=== PATIENT | male | born 1985 | race Caucasian/White ===

== ENCOUNTER 2016-06-21 07:08 | Emergency (ER) | payer SELFPAY ==
[2016-06-21] MEDS ORDERED: ONDANSETRON 4 MG TAB.RAPDIS PO ONE (07:16)
[2016-06-21] MEDS ORDERED: ONDANSETRON 4 MG TAB.RAPDIS ONE (07:18)
--- NOTE | 2016-06-21 07:21 | ER Document Report ---
ED GI/ - General Chief Complaint: Alcohol Withdrawl Stated Complaint: VOMITING AND DIARHHEA Notes: The patient is a 30-year-old male, chronic alcoholic, cocaine/benzo/opioid abuse , presents with nausea, vomiting, diarrhea and epigastric abdominal pain for the past 2 hours. His last alcoholic drink was about 24 hours ago. He feels like he is withdrawing from ETOH cause he feels shaky. He has never had alcohol withdrawal seizure. He denies fevers, hallucinations, seizures, hematemesis or hematochezia. TRAVEL OUTSIDE OF THE [place] IN LAST 30 DAYS: No - Related Data Allergies/Adverse Reactions: carisoprodol [From Soma] Allergy (Verified 06/21/16 08:16) Sulfa (Sulfonamide Antibiotics) Allergy (Verified 06/21/16 08:16) Past Medical History - General Information source: Patient - Social History Smoking Status: Current Every Day Smoker Chew tobacco use (# tins/day): No Frequency of alcohol use: Heavy Drug Abuse: None Family History: Reviewed & Not Pertinent Patient has suicidal ideation: No Patient has homicidal ideation: No - Past Medical History Cardiac Medical History: Reports: Hx Hypercholesterolemia, Hx Hypertension Pulmonary Medical History: Reports: Hx Bronchitis GI Medical History: Reports: Hx Gastritis, Hx Hepatitis - Hepatitis-C, Hx Ulcer Musculoskeltal Medical History: Reports Hx Gout Psychiatric Medical History: Reports: Hx Anxiety, Hx Bipolar Disorder, Hx Depression Traumatic Medical History: Reports: Hx Fractures - Right hand Infectious Medical History: Reports: Hx Hepatitis - Hepatitis-C Past Surgical History: Reports: Hx Orthopedic Surgery - R hand - Immunizations Immunizations up to date: Yes Hx Diphtheria, Pertussis, Tetanus Vaccination: Yes Review of Systems - Review of Systems Notes: REVIEW OF SYSTEMS: CONSTITUTIONAL: -fevers, -chills EENT: -eye pain, -difficulty swallowing, -nasal congestion CARDIOVASCULAR: -chest pain, -syncope. RESPIRATORY: -cough, -SOB GASTROINTESTINAL: +abdominal pain, +nausea, +vomiting, +diarrhea GENITOURINARY: -dysuria, -hematuria MUSCULOSKELETAL: -back pain, -neck pain SKIN: -rash or skin lesions. HEMATOLOGIC: -easy bruising or bleeding. LYMPHATIC: -swollen, enlarged glands. NEUROLOGICAL: -altered mental status or loss of consciousness, -headache, +feel shaky PSYCHIATRIC: -anxiety, -depression. ALL OTHER SYSTEMS REVIEWED AND NEGATIVE. Physical Exam - Vital signs Vitals: Temp Pulse Resp BP Pulse Ox 98.4 F 89 22 H 149/96 H 98 06/21/16 07:10 06/21/16 07:10 06/21/16 07:10 06/21/16 07:10 06/21/16 07:10 - Notes Notes: PHYSICAL EXAMINATION: GENERAL: Actively vomiting. HEAD: Atraumatic, normocephalic. EYES: Pupils equal round and reactive to light, extraocular movements intact, sclera anicteric, conjunctiva are normal. ENT: nares patent, oropharynx clear without exudates. Moist mucous membranes. NECK: Normal range of motion, supple without lymphadenopathy LUNGS: Breath sounds clear to auscultation bilaterally and equal. No wheezes rales or rhonchi. HEART: Regular rate and rhythm without murmurs ABDOMEN: Soft, normoactive bowel sounds. No guarding, no rebound. No masses appreciated. Mild epigastric tenderness. EXTREMITIES: Normal range of motion, no pitting or edema. No cyanosis. NEUROLOGICAL: Cranial nerves grossly intact. Normal speech, normal gait. Normal sensory, motor, and reflex exams. No tremors noted. No tongue fasciculations. PSYCH: Normal mood, normal affect. SKIN: Warm, Dry, normal turgor, no rashes or lesions noted. Course - Re-evaluation Re-evalutation: Has had multiple visits for these complaints and abdominal pain. Notified of pain policy. No evidence of pancreatitis on labs. CIWA score 2. After Ativan, he is no longer feeling shaky. He is tolerating p.o. patient's CIWA score is low enough that patient can be safely treated as an outpatient. I had mental health provide resources for patient for outpatient detox. He says he will go to [facility] after discharge were detox. He is no longer feeling shaky and his tachycardia resolved. Steady gait and ambulating without assistance. Given strict return precautions and he understands. - Vital Signs Vital signs: Temp Pulse Resp BP Pulse Ox 98.4 F 89 14 139/89 H 97 06/21/16 07:44 06/21/16 07:10 06/21/16 09:00 06/21/16 09:00 06/21/16 09:00 - Laboratory Result Diagrams: 06/21/16 07:40 01/09/17 07:40 Laboratory results interpreted by me: 06/21/16 06/21/16 07:40 07:40 RDW 18.4 H Sodium 145.6 H Chloride 97 L Anion Gap 22 H BUN 4 L Glucose 131 H Total Bilirubin 1.6 H AST 333 H Alkaline Phosphatase 216 H Total Protein 8.9 H Discharge - Discharge Clinical Impression: Alcohol withdrawal Qualifiers: Complication of substance-induced condition: uncomplicated Qualified Code(s): F10.230 - Alcohol dependence with withdrawal, uncomplicated Condition: Good Disposition: HOME, SELF-CARE Additional Instructions: ACUTE ALCOHOL INTOXICATION and ALCOHOL ABUSE: Your evaluation revealed very high levels of alcohol. You can from drinking a large amount of alcohol rapidly! Further, there's the risk of falls , traffic accidents, and fights. A high portion (about 50 percent) of the serious injuries seen in hospital emergency rooms are caused by alcohol. Alcohol overdosage is usually due to an underlying emotional or psychiatric problem. You may benefit from counselling. If "binge" drinking is an ongoing problem for you, or if you drink ANY AMOUNT of alcohol EVERY day, you most likely have a tendency to alcoholism. You should avoid alcohol totally. We can refer you for treatment. Persons with alcohol problems are often also prone to other addictions -- you should discuss any use of medications or drugs with the doctor. You should be watched at home for the next several hours by someone who has not been drinking. Get extra fluids for the next 24 hours. Call the doctor if there is repeated vomiting, increasing headache, decreasing level of alertness, or any other worsening. Go to [facility] as instructed for further treatment of your alcohol withdrawal. Take your Librium as prescribed. CHRONIC ALCOHOLISM and ALCOHOL ABUSE: Your evaluation reveals evidence of chronic alcoholism, an addiction to alcohol. The tendency to alcoholism may be inherited. Chronic use of alcohol weakens muscles, causes fatty deposits in the liver , damages the stomach, makes you more prone to infections, and can cause defects in unborn children. In the long run, brain atrophy and cirrhosis of the liver result. You are also at greater risk for certain types of cancer, such as cancer of the mouth, throat, stomach, and liver. Counselling services are available to help you. In-hospital treatment programs often help. Support groups such as Alcoholics Anonymous can be very useful in beating this addiction. Your physician can make a referral for you. As alcoholics often are prone to other addictions, you should discuss your use of any other medications with the doctor. ALCOHOL WITHDRAWAL: Your symptoms are caused by alcohol withdrawal. After a period of frequent drinking, the brain and body are changed by the alcohol. When you quit or reduce your drinking, the nervous system becomes unstable. Withdrawal symptoms can start a few hours after your last drink, but sometimes don't begin until a couple of days later. Symptoms can include shakiness, sweating, insomnia, nausea , vomiting, fearfulness, hallucinations, and seizures. In addition to the acute effects of alcohol withdrawal, we often have to deal with the medical effects of alcoholism. These problems often include dehydration, stomach irritation, intestinal bleeding, low blood sugar, liver disease, and pancreas inflammation. Treatment for alcohol withdrawal includes mild sedatives, vitamins, and fluids. You need to be with someone who can help if symptoms become severe. Many patients can withdraw at home. Admission to the hospital or a detox facility may be necessary if withdrawal symptoms are severe and uncontrollable. Abstaining from alcohol is the only effective long-term treatment. If you start drinking again, you will not be able to control yourself after the first drink. Treatment programs are available. In addition, many alcoholics benefit from Alcoholics Anonymous or other support groups available through your counselor or latter-day special loan officer. AL-ANON and ALA-TEEN are support groups for friends and family members of an alcoholic. Go to the emergency room if you develop persistent vomiting, severe abdominal pain, fever, shortness of breath, hallucinations, uncontrollable tremors, or seizures. COCAINE ABUSE: Cocaine causes many dangerous medical problems. Problems can occur even with "usual" amounts. Cocaine affects judgement, creating a sense of invulnerability. Cocaine users often make bad decisions that seem "great" at the time. Most cocaine users eventually will be hurt by bad job performance, damaged personal relations, crime, and unsafe sexual practices. Toxic effects of cocaine can include seizures, hallucinations, delusions, high blood pressure, heart damage, or sudden . There's always the risk of a "bad batch." But heart attacks, brain hemorrhages, or cardiac arrest can occur unpredictably even with "normal" use. Injection of cocaine is risky for abscesses, endocarditis (heart infection) , pneumonia, and AIDS. Withdrawal from cocaine often causes anxiety and drug cravings. Some users become paranoid and psychotic. Many treatment programs are available, but you must make the decision to quit. Medication can be prescribed to control the symptoms of cocaine toxicity (beta blockers or benzodiazepines). Withdrawal symptoms may require tranquilizers. NARCOTIC / OPIOD ABUSE: Narcotics and opiods are pain-relieving drugs that are often abused. They are addicting. Narcotics cause euphoria, but it often takes increasing amounts to "feel good" and avoid withdrawal symptoms. Overdose of narcotics causes small pupils, coma, and decreased breathing. It's a common cause of . Purity of street narcotics is unpredictable. Injection of narcotics is risky for abscesses, endocarditis (heart infection), pneumonia, and AIDS. Withdrawal from narcotics causes goose bumps, watery mouth, sweating, nasal congestion, muscle aches, abdominal cramps, vomiting, and diarrhea. There 's often restlessness and confusion. Treatment programs are available, but you must make the decision to quit. Medication (such as clonidine) can be prescribed to control the symptoms of withdrawal. INSTRUCTIONS FOR HOME CARE FOLLOWING DRUG OVERDOSAGE: The doctor feels it's safe for you to go home. You will need to be observed. If charcoal and a laxative was given to you, expect some loose black stools soon. Take no medications unless approved by a physician, including alcohol. If drowsy, lie on your stomach or side for sleeping to avoid aspiration if vomiting occurs. Take only liquids by mouth until there is no more nausea. FOR THE OBSERVER: Observe the patient for the next 24 hours and call or go to the hospital if any of the following are noted: prolonged or repeated vomiting, difficulty in arousing, convulsions (seizures or fits), fever, persistent cough, breathing that is too slow or too rapid, or confused or bizarre behavior. If a counselling visit has been arranged, make sure the patient attends. Call the physician or poison control if you have questions. FOLLOW-UP CARE: If you have been referred to a physician for follow-up care, call the physician s office for an appointment as you were instructed or within the next two days. If you experience worsening or a significant change in your symptoms, notify the physician immediately or return to the Emergency Department at any time for re-evaluation. Prescriptions: Chlordiazepoxide HCl [Librium 10 mg Capsule] 1 cap PO TID #6 cap Referrals: [facility] [Outside] - Follow up as needed
[2016-06-21] MEDS ORDERED: LORAZEPAM INJ 2 MG/1 ML VIAL IV ONE (07:29)
[2016-06-21] MEDS ORDERED: HYDROMORPHONE HCL INJ/PF 2 MG/ML AMPULE IV ONE (07:33)
[2016-06-21] MEDS ORDERED: NORMAL SALINE 1000 ML 1,000 ML IV PRN (07:39)
[2016-06-21 07:52] LABS: ABSOLUTE BASOPHILS # (AUTO) 0.1 10^3/uL (0.0-0.2); ABSOLUTE EOSINOPHILS # (AUTO) 0.1 10^3/uL (0.0-0.6); ABSOLUTE LYMPHOCYTES (AUTO) 1.8 10^3/uL (0.5-4.7); ABSOLUTE MONOCYTES (AUTO) 0.4 10^3/uL (0.1-1.4); ABSOLUTE NEUT (AUTO) 7.4 10^3/uL (1.7-8.2); BASOPHILS % (AUTO) 0.9 % (0-2); EOSINOPHILS % (AUTO) 0.6 % (0-6); HEMATOCRIT 41.4 % (37.9-51.0); HEMOGLOBIN 14.4 g/dL (13.5-17.0); HGB HCT DIFFERENCE 1.8; LYMPHOCYTES % (AUTO) 18.2 % (13-45); MEAN CORPUSCULAR HEMOGLOBIN 31.3 pg (27.0-33.4); MEAN CORPUSCULAR HGB CONC 34.8 g/dL (32.0-36.0); MEAN CORPUSCULAR VOLUME 90 fl (80-97); MONOCYTES % (AUTO) 4.3 % (3-13); RED CELL DISTRIBUTION WIDTH 18.4 % (11.5-14.0); WHITE BLOOD COUNT 9.7 10^3/uL (4.0-10.5)
[2016-06-21 08:11] LABS: ALANINE AMINOTRANSFERASE 65 U/L (21-72); ALBUMIN 4.2 g/dL (3.5-5.0); ALCOHOL 36 mg/dL (NONE DETECTED); ALKALINE PHOSPHATASE 216 U/L (38-126); ASPARTATE AMINO TRANSFERASE 333 U/L (17-59); BILIRUBIN,TOTAL 1.6 mg/dL (0.2-1.3); BLOOD UREA NITROGEN 4 mg/dL (7-20); CALCIUM 8.9 mg/dL (8.4-10.2); CARBON DIOXIDE 27 mmol/L (22-30); CHLORIDE 97 mmol/L (98-107); CREATININE RESULT 0.73 mg/dL (0.52-1.25); GLUCOSE 131 mg/dL (75-110); LIPASE 121.7 U/L (23-300); TOTAL PROTEIN 8.9 g/dL (6.3-8.2)
[2016-06-21 08:24] LABS: POTASSIUM 3.9 mmol/L (3.6-5.0); SODIUM 145.6 mmol/L (137-145)
[2016-06-21 08:33] LABS: ANION GAP 22 (5-19)
[2016-06-21] MEDS ORDERED: DIAZEPAM 5 MG TABLET PO ONE (09:06)
[2016-06-21 09:30] VITALS: BP 139/89
[2016-06-22 16:19] LABS: URINE BARBITURATES SCREEN UNCONFIRMED POSITIVE; URINE METHADONE SCREEN NEGATIVE; URINE PHENCYCLIDINE SCREEN NEGATIVE
== END 2016-06-21 10:12 | disposition home or self-care (01) ==
LOC: ER 07:08
DX: F10.230 Alcohol dependence with withdrawal, uncomplicated (principal); R11.2 Nausea with vomiting, unspecified; R19.7 Diarrhea, unspecified; R10.13 Epigastric pain; F17.200 Nicotine dependence, unspecified, uncomplicated; I10 Essential (primary) hypertension; E78.00 Pure hypercholesterolemia, unspecified; Z86.19 Personal history of other infectious and parasitic diseases; Z88.2 Allergy status to sulfonamides
CPT/HCPCS: 99285; 96361; 96374; 96375; 36415; 80307 ×2; 83690; 85025; 80076; 80048; S0119; J1170; J2060; J7030

== ENCOUNTER 2016-07-28 09:47 | Emergency (ER) | payer SELFPAY ==
--- NOTE | 2016-07-28 10:27 | EKG REPORT ---
SEVERITY:- ABNORMAL ECG - SINUS TACHYCARDIA NONSPECIFIC T ABNORMALITIES, INFERIOR LEADS : Confirmed by: Braden Elias 28-Jul-2016 10:26:39
[2016-07-28] MEDS ORDERED: NORMAL SALINE 1000 ML 1,000 ML IV ONE (10:35)
[2016-07-28] MEDS ORDERED: ONDANSETRON HCL INJ/PF 4 MG/2 ML SDV IV ONE (10:35)
[2016-07-28] MEDS ORDERED: PANTOPRAZOLE SODIUM 40 MG VIAL IV ONE (10:35)
[2016-07-28] MEDS ORDERED: LORAZEPAM INJ 2 MG/1 ML VIAL IV ONE (10:36)
--- NOTE | 2016-07-28 10:40 | ER Document Report ---
ED General - General Mode of Arrival: Ambulatory Information source: Patient TRAVEL OUTSIDE OF THE [place] IN LAST 30 DAYS: No - HPI Patient complains to provider of: Alcohol Withdrawal Onset: Other - 3 days ago Associated symptoms: Other - see above <GUADALUPE LOPEZ - Last Filed: 07/28/16 10:34> <LES METZ - Last Filed: 07/28/16 12:28> - General Chief Complaint: Alcohol Withdrawl Stated Complaint: ABDOMINAL/CHEST PAIN Notes: 31 year old male with history of alcohol abuse, hypertension, hepatitis C, and hyperlipidemia presents to the ED complaining of alcohol withdrawal symptoms that started 3 days ago. Patient states that he has been vomiting for the past 3 days even when trying to drink alcohol. Patient claims his last drink was last night, and that he has been trying to wean himself off. Patient reports that he ran out of his hypertensive medications 2 days ago (10mg Lisinopril qd and 0.1mg Clonidine BID). (GUADALUPE LOPEZ) - Related Data Allergies/Adverse Reactions: carisoprodol [From Soma] Allergy (Verified 07/28/16 09:52) Sulfa (Sulfonamide Antibiotics) Allergy (Verified 07/28/16 09:52) Past Medical History - General Information source: Patient - Social History Smoking Status: Current Every Day Smoker Chew tobacco use (# tins/day): No Frequency of alcohol use: Heavy - usually drinks a fifth a day Drug Abuse: Cocaine, Marijuana Family History: Reviewed & Not Pertinent Patient has suicidal ideation: No Patient has homicidal ideation: No - Past Medical History Cardiac Medical History: Reports: Hx Hypercholesterolemia, Hx Hypertension Pulmonary Medical History: Reports: Hx Bronchitis Renal/ Medical History: Denies: Hx Peritoneal Dialysis GI Medical History: Reports: Hx Gastritis, Hx Hepatitis - Hepatitis-C, Hx Ulcer Musculoskeltal Medical History: Reports Hx Gout Psychiatric Medical History: Reports: Hx Anxiety, Hx Bipolar Disorder, Hx Depression Traumatic Medical History: Reports: Hx Fractures - Right hand Infectious Medical History: Reports: Hx Hepatitis - Hepatitis-C Past Surgical History: Reports: Hx Orthopedic Surgery - R hand - Immunizations Immunizations up to date: Yes Hx Diphtheria, Pertussis, Tetanus Vaccination: Yes <GUADALUPE LOPEZ - Last Filed: 07/28/16 10:34> Review of Systems - Review of Systems Constitutional: No symptoms reported EENT: No symptoms reported Cardiovascular: No symptoms reported Respiratory: No symptoms reported Gastrointestinal: See HPI, Nausea, Vomiting Genitourinary: No symptoms reported Male Genitourinary: No symptoms reported Musculoskeletal: No symptoms reported Skin: No symptoms reported Hematologic/Lymphatic: No symptoms reported Neurological/Psychological: No symptoms reported -: Yes All other systems reviewed and negative <GUADALUPE LOPEZ - Last Filed: 07/28/16 10:34> Physical Exam - General General appearance: Alert, Other - shaky and diaphoretic In distress: None - HEENT Head: Normocephalic, Atraumatic Eyes: Normal Extraocular movements intact: Yes Pupils: PERRL - Respiratory Respiratory status: No respiratory distress Breath sounds: Normal - Cardiovascular Rhythm: Regular, Tachycardia Heart sounds: Normal auscultation - Abdominal Inspection: Normal Distension: Distended - mild Bowel sounds: Normal Tenderness: Tender - mild diffuse tenderness to palpation - Back Back: Normal - Extremities General upper extremity: Normal inspection, Normal ROM General lower extremity: Normal inspection, Normal ROM - Neurological Neuro grossly intact: Yes - Psychological Associated symptoms: Normal affect, Normal mood - Skin Skin Temperature: Warm Skin Moisture: Dry Skin Color: Normal <GUADALUPE LOPEZ - Last Filed: 07/28/16 10:34> Course <GUADALUPE LOPEZ - Last Filed: 07/28/16 10:34> - Laboratory Result Diagrams: 07/28/16 10:30 07/28/16 10:30 - EKG Interpretation by [facility] EKG shows normal: Sinus rhythm, [place], Intervals, QRS Complexes. abnormal: ST-T Waves - Nonspecific inferior T abnormalities Rate: Normal - 125 Rhythm: NSR When compared to previous EKG there are: No significant change <LES METZ - Last Filed: 07/28/16 12:28> - Re-evaluation Re-evalutation: 07/28/16 12:16 The patient's alcohol level is 125mg%. His symptoms are probably a combination of following alcohol levels, his nausea and vomiting, and being out of his clonidine. He received prescriptions for his clonidine and lisinopril and encouraged to follow up at [facility] or [facility]. 07/28/16 12:26 The patient is requesting benzodiazepine medication to go home with to treat his shakes. He was shaking when he came in with alcohol level f 125mg%. Observing how he is behaving at this time, his shaking is rocking his legs back and forth and appears to be an anxiety issue. I informed him that I was unwilling to prescribe ongoing benzodiazepines for him as I think the shaking is anxiety at this time. I also stated that I would not be complicit in his ongoing substance abuse. (LES METZ) - Vital Signs Vital signs: Temp Pulse Resp BP Pulse Ox 18 149/103 H 93 07/28/16 11:01 07/28/16 11:01 07/28/16 11:01 (LES METZ) - Laboratory Laboratory results interpreted by me: 07/28/16 07/28/16 10:30 10:30 RDW 16.2 H Chloride 86 L Anion Gap 26 H BUN 2 L Glucose 122 H Magnesium 1.3 L Total Bilirubin 2.0 H AST 371 H Alkaline Phosphatase 256 H Total Protein 9.7 H Lipase 646.6 H (LES METZ) Discharge <GUADALUPE LOPEZ - Last Filed: 07/28/16 10:34> <LES METZ - Last Filed: 07/28/16 12:28> - Discharge Clinical Impression: Has run out of medications Alcohol withdrawal syndrome Qualifiers: Complication of substance-induced condition: uncomplicated Qualified Code(s): F10.230 - Alcohol dependence with withdrawal, uncomplicated Alcohol intoxication Qualifiers: Complication of substance-induced condition: uncomplicated Qualified Code(s): F10.120 - Alcohol abuse with intoxication, uncomplicated Abdominal pain Qualifiers: Abdominal location: generalized Qualified Code(s): R10.84 - Generalized abdominal pain Condition: Stable Disposition: HOME, SELF-CARE Additional Instructions: Alcohol Withdrawal: Your symptoms are caused by alcohol withdrawal. After a period of frequent drinking, the brain and body are changed by the alcohol. When you quit or reduce your drinking, the nervous system becomes unstable. Withdrawal symptoms can start a few hours after your last drink, but sometimes don't begin until a couple of days later. Symptoms can include shakiness, sweating, insomnia, nausea , vomiting, fearfulness, hallucinations, and seizures. In addition to the acute effects of alcohol withdrawal, we often have to deal with the medical effects of alcoholism. These problems often include dehydration, stomach irritation, intestinal bleeding, low blood sugar, liver disease, and pancreas inflammation. Treatment for alcohol withdrawal includes mild sedatives, vitamins, and fluids. You need to be with someone who can help if symptoms become severe. Many patients can withdraw at home. Admission to the hospital or a detox facility may be necessary if withdrawal symptoms are severe and uncontrollable. Abstaining from alcohol is the only effective long-term treatment. If you start drinking again, you will not be able to control yourself after the first drink. Treatment programs are available. In addition, many alcoholics benefit from Alcoholics Anonymous or other support groups available through your counselor or anabaptist creative engagement director. AL-ANON and ALA-TEEN are support groups for friends and family members of an alcoholic. Go to the emergency room if you develop persistent vomiting, severe abdominal pain, fever, shortness of breath, hallucinations, uncontrollable tremors, or seizures. TAKE THE MEDICATION PRESCRIBED. FOLLOW UP WITH A [facility]. RETURN TO THE EMERGENCY ROOM IF ANY NEW OR WORSENING SYMPTOMS. Prescriptions: Clonidine HCl 0.1 mg PO TID #90 tablet Lisinopril 10 mg PO DAILY #30 tablet Referrals: [facility] [Outside] - Follow up as needed [facility] [Outside] - Follow up as needed Scribe Attestation: 07/28/16 12:22 I personally performed the services described in the documentation, reviewed and edited the documentation which was dictated to the scribe in my presence, and it accurately records my words and actions. (LES METZ) Scribe Documentation - Scribe Written by Scribe:: Girma Lee, 07/28/2016 1051 acting as scribe for :: Flora <GUADALUPE LOPEZ - Last Filed: 07/28/16 10:34>
[2016-07-28 10:52] LABS: ABSOLUTE BASOPHILS # (AUTO) 0.1 10^3/uL (0.0-0.2); ABSOLUTE LYMPHOCYTES (AUTO) 2.2 10^3/uL (0.5-4.7); ABSOLUTE MONOCYTES (AUTO) 0.5 10^3/uL (0.1-1.4); ABSOLUTE NEUT (AUTO) 6.5 10^3/uL (1.7-8.2); BASOPHILS % (AUTO) 1.2 % (0-2); EOSINOPHILS % (AUTO) 0.1 % (0-6); HEMATOCRIT 44.5 % (37.9-51.0); HEMOGLOBIN 15.2 g/dL (13.5-17.0); HGB HCT DIFFERENCE 1.1; LYMPHOCYTES % (AUTO) 23.6 % (13-45); MEAN CORPUSCULAR HEMOGLOBIN 32.3 pg (27.0-33.4); MEAN CORPUSCULAR HGB CONC 34.2 g/dL (32.0-36.0); MEAN CORPUSCULAR VOLUME 94 fl (80-97); MONOCYTES % (AUTO) 5.3 % (3-13); RED BLOOD COUNT 4.71 10^6/uL (4.35-5.55); RED CELL DISTRIBUTION WIDTH 16.2 % (11.5-14.0); SEGMENTED NEUTROPHILS % (AUTO) 69.8 % (42-78); WHITE BLOOD COUNT 9.4 10^3/uL (4.0-10.5)
[2016-07-28 11:07] LABS: ALANINE AMINOTRANSFERASE 60 U/L (21-72); ALBUMIN 4.3 g/dL (3.5-5.0); ALCOHOL 125 mg/dL (NONE DETECTED); ALKALINE PHOSPHATASE 256 U/L (38-126); ASPARTATE AMINO TRANSFERASE 371 U/L (17-59); BLOOD UREA NITROGEN 2 mg/dL (7-20); CALCIUM 9.5 mg/dL (8.4-10.2); CARBON DIOXIDE 28 mmol/L (22-30); CREATINE KINASE 74 U/L (55-170); CREATININE RESULT 0.68 mg/dL (0.52-1.25); GLUCOSE 122 mg/dL (75-110); LIPASE 646.6 U/L (23-300); TOTAL PROTEIN 9.7 g/dL (6.3-8.2)
[2016-07-28 11:15] LABS: CHLORIDE 86 mmol/L (98-107); SODIUM 140.2 mmol/L (137-145)
[2016-07-28 11:18] LABS: ANION GAP 26 (5-19); MAGNESIUM 1.3 mg/dL (1.6-2.3)
[2016-07-28 11:19] LABS: CREATINE KINASE MB < 0.22 ng/mL (<4.55); TROPONIN I < 0.012 ng/mL
[2016-07-28 11:54] LABS: APPEARANCE,URINE CLEAR; BILIRUBIN,URINE NEGATIVE (NEGATIVE); GLUCOSE, URINE NEGATIVE (NEGATIVE); KETONES,URINE NEGATIVE (NEGATIVE); LEUKOCYTE ESTERASE,URINE NEGATIVE (NEGATIVE); NITRITE,URINE NEGATIVE (NEGATIVE); PROTEIN,URINE NEGATIVE (NEGATIVE); URINE SPECIFIC GRAVITY 1.006; UROBILINOGEN,URINE NEGATIVE mg/dL (<2.0)
[2016-07-28] MEDS ORDERED: LISINOPRIL 10 MG TABLET PO ONE (12:23)
[2016-07-28] MEDS ORDERED: CLONIDINE HCL 0.1 MG TABLET PO ONE (12:23)
[2016-07-28 12:34] VITALS: BP 145/102
== END 2016-07-28 12:45 | disposition home or self-care (01) ==
LOC: ER 09:47
DX: F10.230 Alcohol dependence with withdrawal, uncomplicated (principal); F10.120 Alcohol abuse with intoxication, uncomplicated; R11.2 Nausea with vomiting, unspecified; R10.84 Generalized abdominal pain; R07.9 Chest pain, unspecified; F17.200 Nicotine dependence, unspecified, uncomplicated; E78.00 Pure hypercholesterolemia, unspecified; I10 Essential (primary) hypertension; Z86.19 Personal history of other infectious and parasitic diseases; E78.5 Hyperlipidemia, unspecified; Z88.2 Allergy status to sulfonamides
CPT/HCPCS: 93005; 99285; 96374; 96375; 36415; 82553; 80307; 82550; 83690; 83735; 85025; 80053; 81001; 84484; 93010; J2060; S0164; J2405; J7030

== ENCOUNTER 2016-08-28 03:10 | Emergency (ER) | payer SELFPAY ==
[2016-08-28] MEDS ORDERED: ONDANSETRON HCL INJ/PF 4 MG/2 ML SDV IV ONE ×2 (05:18→08:00)
[2016-08-28 06:13] LABS: ABSOLUTE LYMPHOCYTES (AUTO) 2.5 10^3/uL (0.5-4.7); ABSOLUTE MONOCYTES (AUTO) 0.5 10^3/uL (0.1-1.4); ABSOLUTE NEUT (AUTO) 12.3 10^3/uL (1.7-8.2); BASOPHILS % (AUTO) 0.3 % (0-2); EOSINOPHILS % (AUTO) 0.1 % (0-6); HEMATOCRIT 45.1 % (37.9-51.0); HEMOGLOBIN 15.9 g/dL (13.5-17.0); HGB HCT DIFFERENCE 2.6; LYMPHOCYTES % (AUTO) 16.4 % (13-45); MEAN CORPUSCULAR HEMOGLOBIN 32.2 pg (27.0-33.4); MEAN CORPUSCULAR HGB CONC 35.2 g/dL (32.0-36.0); MEAN CORPUSCULAR VOLUME 92 fl (80-97); MONOCYTES % (AUTO) 3.1 % (3-13); RED BLOOD COUNT 4.93 10^6/uL (4.35-5.55); RED CELL DISTRIBUTION WIDTH 14.1 % (11.5-14.0); SEGMENTED NEUTROPHILS % (AUTO) 80.1 % (42-78); WHITE BLOOD COUNT 15.3 10^3/uL (4.0-10.5)
[2016-08-28 06:26] LABS: ALANINE AMINOTRANSFERASE 57 U/L (21-72); ALBUMIN 5.2 g/dL (3.5-5.0); ALKALINE PHOSPHATASE 250 U/L (38-126); BILIRUBIN,TOTAL 1.4 mg/dL (0.2-1.3); BLOOD UREA NITROGEN 5 mg/dL (7-20); CALCIUM 10.3 mg/dL (8.4-10.2); CREATININE RESULT 0.84 mg/dL (0.52-1.25); GLUCOSE 132 mg/dL (75-110); POTASSIUM 4.8 mmol/L (3.6-5.0); TOTAL PROTEIN 10.2 g/dL (6.3-8.2)
[2016-08-28 06:32] LABS: ASPARTATE AMINO TRANSFERASE 181 U/L (17-59)
[2016-08-28 06:33] LABS: CARBON DIOXIDE 25 mmol/L (22-30); CHLORIDE 85 mmol/L (98-107); SODIUM 141.5 mmol/L (137-145)
[2016-08-28 06:35] LABS: ANION GAP 32 (5-19)
[2016-08-28] MEDS ORDERED: LORAZEPAM INJ 2 MG/1 ML VIAL IV ONE ×2 (07:14→07:47)
[2016-08-28] MEDS: NORMAL SALINE 1000 ML 1,000 ML IV PRN ×2 (07:21→09:34)
--- NOTE | 2016-08-28 07:37 | ER Document Report ---
ED Substance Abuse / Acc. OD - General Chief Complaint: Alcohol Withdrawl Stated Complaint: VOMITING Time seen by provider: 07:00 Mode of Arrival: Ambulatory Notes: 31-year-old male presents to ED for chest pain vomiting shortness of breath the teeth. He states he drinks a fifth or more of liquor a day and his last drink was 1900 last night. His pulses 120 240. He states he has been vomiting most of the night. Patient is having tremors at this time. TRAVEL OUTSIDE OF THE [place] IN LAST 30 DAYS: No - HPI Patient complains to provider of: Alcohol abuse Onset: Other - Long-term alcohol abuse states he has been through DTs before Onset/Duration: Intermittent Quality of pain: Pressure, Sharp Severity: Moderate Pain Level: 4 Situational problems related to: Other - Chronic alcoholic for he said 10-15 years Overdose of: Alcohol Associated Symptoms: Chest pain/discomfort, Short of breath, Nausea/vomiting Similar symptoms previously: Yes Recently seen / treated by doctor: No - Related Data Allergies/Adverse Reactions: carisoprodol [From Soma] Allergy (Verified 08/28/16 03:15) Sulfa (Sulfonamide Antibiotics) Allergy (Verified 08/28/16 03:15) Past Medical History - General Information source: Patient - Social History Smoking Status: Never Smoker Chew tobacco use (# tins/day): No Frequency of alcohol use: Heavy Drug Abuse: Marijuana Lives with: Parents Family History: CAD, CVA, Hyperlipidemia, Hypertension, Malignancy, Thyroid Disfunction - Past Medical History Cardiac Medical History: Reports: Hx Hypercholesterolemia, Hx Hypertension Pulmonary Medical History: Reports: Hx Bronchitis EENT Medical History: Reports: None Neurological Medical History: Reports: Hx Cerebrovascular Accident - States he has had a TIA Endocrine Medical History: Reports: None Renal/ Medical History: Reports: None Malignancy Medical History: Reports None GI Medical History: Reports: Hx Gastritis, Hx Hepatitis - Hepatitis-C, Hx Ulcer , Hx Endoscopy Musculoskeltal Medical History: Reports Hx Arthritis, Reports Hx Gout, Reports Hx Musculoskeletal Deformity, Reports Hx Musculoskeletal Trauma Skin Medical History: Reports None Psychiatric Medical History: Reports: Hx Anxiety, Hx Bipolar Disorder, Hx Depression Traumatic Medical History: Reports: Hx Fractures - Right hand Infectious Medical History: Reports: Hx Hepatitis - Hepatitis-C Past Surgical History: Reports: Hx Orthopedic Surgery - R hand - Immunizations Immunizations up to date: Yes Hx Diphtheria, Pertussis, Tetanus Vaccination: Yes Review of Systems - Review of Systems Constitutional: Recent illness EENT: No symptoms reported Cardiovascular: Chest pain, Palpitations Respiratory: Short of breath Gastrointestinal: Abdominal pain, Nausea, Vomiting Genitourinary: No symptoms reported Male Genitourinary: No symptoms reported Musculoskeletal: No symptoms reported Skin: No symptoms reported Hematologic/Lymphatic: No symptoms reported Neurological/Psychological: No symptoms reported Physical Exam - Vital signs Vitals: Temp Pulse Resp BP Pulse Ox 97.9 F 120 H 20 131/98 H 97 08/28/16 03:20 08/28/16 03:20 08/28/16 03:20 08/28/16 03:20 08/28/16 03:20 Interpretation: Hypertensive, Tachycardic - General General appearance: Appears well, Alert - HEENT Head: Normocephalic, Atraumatic Eyes: Normal Pupils: PERRL - Respiratory Respiratory status: No respiratory distress Chest status: Nontender Breath sounds: Normal Chest palpation: Normal - Cardiovascular Rhythm: Regular Heart sounds: Normal auscultation Murmur: No - Abdominal Inspection: Normal Distension: No distension Bowel sounds: Normal Tenderness: Tender, Collazo's sign Organomegaly: No organomegaly - Back Back: Normal, Nontender - Extremities General upper extremity: Normal inspection, Nontender, Normal color, Normal ROM , Normal temperature General lower extremity: Normal inspection, Nontender, Normal color, Normal ROM , Normal temperature, Normal weight bearing. No: Rukhsana's sign - Neurological Neuro grossly intact: Yes Cognition: Normal Orientation: AAOx4 [place] Coma Scale Eye Opening: Spontaneous [place] Coma Scale Verbal: Oriented [place] Coma Scale Motor: Obeys Commands [place] Coma Scale Total: 15 Speech: Normal Motor strength normal: LUE, RUE, LLE, RLE Sensory: Normal - Psychological Associated symptoms: Normal affect, Normal mood - Skin Skin Temperature: Warm Skin Moisture: Dry Skin Color: Normal Course - Re-evaluation Re-evalutation: 08/28/16 14:[address] Louie before discharge and patient. I have not seen tremors nurses they stated he had them this morning has not had any since morning. Patient frequently requested Ativan for tremors that we do not see. He has been getting his magnesium, thiamine and multivitamins. These should be completed in a few minutes and he will be discharged home. - Vital Signs Vital signs: Temp Pulse Resp BP Pulse Ox 98.6 F 89 21 H 149/94 H 95 08/28/16 15:12 08/28/16 15:12 08/28/16 15:12 08/28/16 15:12 08/28/16 15:12 - Laboratory Result Diagrams: 08/28/16 06:03 08/28/16 06:03 Laboratory results interpreted by me: 08/28/16 08/28/16 08/28/16 06:03 06:03 07:19 WBC 15.3 H RDW 14.1 H Seg Neutrophils % 80.1 H Absolute Neutrophils 12.3 H Chloride 85 L Anion Gap 32 H BUN 5 L Glucose 132 H Calcium 10.3 H Magnesium 0.8 L* Total Bilirubin 1.4 H AST 181 H Alkaline Phosphatase 250 H Total Protein 10.2 H Albumin 5.2 H Urine Protein Urine Ketones Urine Urobilinogen 08/28/16 08:22 WBC RDW Seg Neutrophils % Absolute Neutrophils Chloride Anion Gap BUN Glucose Calcium Magnesium Total Bilirubin AST Alkaline Phosphatase Total Protein Albumin Urine Protein 100 H Urine Ketones TRACE H Urine Urobilinogen 2.0 H Discharge - Discharge Clinical Impression: Alcohol dependence Qualifiers: Substance use status: uncomplicated Qualified Code(s): F10.20 - Alcohol dependence, uncomplicated Condition: Stable Disposition: HOME, SELF-CARE Instructions: Family Physicians / Practices Additional Instructions: He was seen today for alcohol withdrawal. He states that you have been having tremors and she planned to seek help with your alcohol abuse. A stent in a mental health worker to speak with you and give you all the resources needed for you to seek help with her alcohol abuse. You need to drink 8-10 cups of water, stop drinking alcohol, stop taking any street drugs, and seek help for your alcohol problem. Please take your magnesium as ordered as you magnesium level was very low today and you received IV magnesium. FOLLOW-UP CARE: If you have been referred to a physician for follow-up care, call the physician s office for an appointment as you were instructed or within the next two days. If you experience worsening or a significant change in your symptoms, notify the physician immediately or return to the Emergency Department at any time for re-evaluation. Forms: Elevated Blood Pressure
[2016-08-28 07:39] LABS: LIPASE 209.7 U/L (23-300)
[2016-08-28] MEDS ORDERED: FAMOTIDINE INJ/PF 20 MG/2 ML SDV IV ONE (07:45)
[2016-08-28] MEDS ORDERED: ONDANSETRON 4 MG TAB.RAPDIS PO ONE (07:46)
[2016-08-28] MEDS ORDERED: DEXTROSE 5% IV PRN ×5 (07:55)
[2016-08-28] MEDS ORDERED: 1/2 NORMAL SALINE IV PRN ×5 (07:55)
[2016-08-28] MEDS ORDERED: [UNRECOGNIZED DRUG - OTHER] IV PRN ×5 (07:55)
[2016-08-28] MEDS ORDERED: MAGNESIUM SULFATE IV PRN ×5 (07:55)
[2016-08-28 08:01] LABS: MAGNESIUM 0.8 mg/dL (1.6-2.3)
[2016-08-28 08:12] LABS: CREATINE KINASE MB < 0.22 ng/mL (<4.55); TROPONIN I < 0.012 ng/mL
[2016-08-28 10:08] LABS: APPEARANCE,URINE CLOUDY; BILIRUBIN,URINE NEGATIVE (NEGATIVE); GLUCOSE, URINE NEGATIVE (NEGATIVE); KETONES,URINE TRACE mg/dL (NEGATIVE); LEUKOCYTE ESTERASE,URINE NEGATIVE (NEGATIVE); NITRITE,URINE NEGATIVE (NEGATIVE); PROTEIN,URINE 100 mg/dL (NEGATIVE); URINE SPECIFIC GRAVITY 1.025
[2016-08-28] MEDS ORDERED: MAGNESIUM SULFATE/D5W 100 ML IV ONE (10:39)
[2016-08-28 15:13] VITALS: BP 149/94
--- NOTE | 2016-08-28 16:08 | EKG REPORT ---
SEVERITY:- ABNORMAL ECG - SINUS TACHYCARDIA BORDERLINE T ABNORMALITIES, INFERIOR LEADS PROLONGED QT INTERVAL : Confirmed by: Ching Martin MD 28-Aug-2016 16:07:48
== END 2016-08-28 15:20 | disposition home or self-care (01) ==
LOC: ER 03:10
DX: F10.20 Alcohol dependence, uncomplicated (principal); R11.10 Vomiting, unspecified; R06.02 Shortness of breath
CPT/HCPCS: 93005; 96376; 99285; 96361; 96375; 96365; 96366; 96368; 36415; 82553; 80307; 82550; 83690; 83735; 85025; 80053; 81001; 84484; 71020; 93010; J3490 ×2; J3475 ×2; J2060; J3411; J2405; J7030; S0028

== ENCOUNTER 2016-09-08 01:54 | Emergency (ER) | payer SELFPAY ==
[2016-09-08] MEDS ORDERED: ONDANSETRON HCL INJ/PF 4 MG/2 ML SDV ONE (03:28)
[2016-09-08] MEDS ORDERED: ONDANSETRON HCL INJ/PF 4 MG/2 ML SDV IV ONE (03:29)
[2016-09-08] MEDS ORDERED: LORAZEPAM INJ 2 MG/1 ML VIAL IV ONE (03:47)
[2016-09-08] MEDS ORDERED: NORMAL SALINE 1000 ML 1,000 ML IV PRN (03:47)
[2016-09-08 03:53] LABS: ABSOLUTE BASOPHILS # (AUTO) 0.3 10^3/uL (0.0-0.2); ABSOLUTE LYMPHOCYTES (AUTO) 3.3 10^3/uL (0.5-4.7); ABSOLUTE MONOCYTES (AUTO) 0.6 10^3/uL (0.1-1.4); ABSOLUTE NEUT (AUTO) 4.7 10^3/uL (1.7-8.2); EOSINOPHILS % (AUTO) 0.4 % (0-6); HEMATOCRIT 40.9 % (37.9-51.0); HEMOGLOBIN 14.3 g/dL (13.5-17.0); LYMPHOCYTES % (AUTO) 36.9 % (13-45); MEAN CORPUSCULAR HEMOGLOBIN 31.8 pg (27.0-33.4); MEAN CORPUSCULAR VOLUME 91 fl (80-97); MONOCYTES % (AUTO) 6.7 % (3-13); RED CELL DISTRIBUTION WIDTH 13.8 % (11.5-14.0); WHITE BLOOD COUNT 8.8 10^3/uL (4.0-10.5)
[2016-09-08 04:09] LABS: ALANINE AMINOTRANSFERASE 77 U/L (21-72); ALBUMIN 5.3 g/dL (3.5-5.0); ALCOHOL 68 mg/dL (NONE DETECTED); ALKALINE PHOSPHATASE 242 U/L (38-126); ASPARTATE AMINO TRANSFERASE 291 U/L (17-59); BILIRUBIN,TOTAL 1.5 mg/dL (0.2-1.3); BLOOD UREA NITROGEN 3 mg/dL (7-20); CALCIUM 10.7 mg/dL (8.4-10.2); CARBON DIOXIDE 25 mmol/L (22-30); CHLORIDE 90 mmol/L (98-107); CREATININE RESULT 0.61 mg/dL (0.52-1.25); GLUCOSE 134 mg/dL (75-110); SODIUM 143.7 mmol/L (137-145); TOTAL PROTEIN 9.6 g/dL (6.3-8.2)
[2016-09-08 04:19] LABS: ANION GAP 29 (5-19)
[2016-09-08] MEDS ORDERED: NORMAL SALINE 1000 ML 1,000 ML IV ONE (05:00)
[2016-09-08] MEDS ORDERED: DIAZEPAM 5 MG TABLET PO ONE (05:32)
[2016-09-08] MEDS ORDERED: LIDOCAINE 2% VISCOUS SOLN 20 ML UDCUP PO ONE (05:55)
[2016-09-08] MEDS ORDERED: METOCLOPRAMIDE HCL ORAL SOLN 10 MG/10 ML UDCUP PO ONE (05:55)
[2016-09-08] MEDS ORDERED: MAG HYDROX/AL HYDROX/SIMETH SUSP 30 ML UDCUP PO ONE (05:55)
--- NOTE | 2016-09-08 05:55 | ER Document Report ---
ED Substance Abuse / Acc. OD - General Chief Complaint: Alcohol Withdrawl Stated Complaint: CHEST PAIN Mode of Arrival: Ambulatory Information source: Patient Notes: 31-year-old male presents to the emergency department complaining of alcohol withdrawal symptoms. Patient admits to heavy EtOH use and states last drink was approximately 18 hours ago. Complains of shakiness, nausea/vomiting, and epigastric abdominal pain. Patient is well known to this ED for multiple visits for similar complaints. Denies fever, hemoptysis, shortness of breath, seizure activity, blood in stool. Denies SI/HI. TRAVEL OUTSIDE OF THE [place] IN LAST 30 DAYS: No - HPI Patient complains to provider of: Alcohol abuse, Alcohol withdrawal, Drug abuse Onset: This morning Onset/Duration: Gradual Quality of pain: Achy Severity: Moderate Pain Level: 3 Associated Symptoms: Nausea/vomiting, Tremors Similar symptoms previously: Yes Recently seen / treated by doctor: Yes - Related Data Allergies/Adverse Reactions: carisoprodol [From Soma] Allergy (Verified 08/28/16 03:15) Sulfa (Sulfonamide Antibiotics) Allergy (Verified 08/28/16 03:15) Past Medical History - General Information source: Patient - Social History Smoking Status: Current Every Day Smoker Frequency of alcohol use: Heavy Drug Abuse: Cocaine, Heroin, Marijuana, Other - Benzodiazepines and barbiturates Family History: CAD, CVA, Hyperlipidemia, Hypertension, Malignancy, Thyroid Disfunction - Past Medical History Cardiac Medical History: Reports: Hx Hypercholesterolemia, Hx Hypertension Pulmonary Medical History: Reports: Hx Bronchitis Neurological Medical History: Reports: Hx Cerebrovascular Accident - States he has had a TIA Renal/ Medical History: Denies: Hx Peritoneal Dialysis GI Medical History: Reports: Hx Gastritis, Hx Hepatitis - Hepatitis-C, Hx Ulcer , Hx Endoscopy Musculoskeltal Medical History: Reports Hx Arthritis, Reports Hx Gout, Reports Hx Musculoskeletal Deformity, Reports Hx Musculoskeletal Trauma Psychiatric Medical History: Reports: Hx Anxiety, Hx Bipolar Disorder, Hx Depression Traumatic Medical History: Reports: Hx Fractures - Right hand Infectious Medical History: Reports: Hx Hepatitis - Hepatitis-C Past Surgical History: Reports: Hx Orthopedic Surgery - R hand - Immunizations Immunizations up to date: Yes Hx Diphtheria, Pertussis, Tetanus Vaccination: Yes Review of Systems - Review of Systems Constitutional: See HPI EENT: No symptoms reported Cardiovascular: No symptoms reported Respiratory: No symptoms reported Gastrointestinal: See HPI Genitourinary: No symptoms reported Male Genitourinary: No symptoms reported Musculoskeletal: No symptoms reported Skin: No symptoms reported Hematologic/Lymphatic: No symptoms reported Neurological/Psychological: See HPI -: Yes All other systems reviewed and negative Physical Exam - Vital signs Vitals: Resp 20 09/08/16 03:34 - General General appearance: Alert In distress: None - HEENT Head: Normocephalic, Atraumatic Eyes: Normal Pupils: PERRL - Respiratory Respiratory status: No respiratory distress Chest status: Nontender Breath sounds: Normal - CTAB Chest palpation: Normal - Cardiovascular Rhythm: Regular Heart sounds: Normal auscultation Murmur: No Pulses: Normal: Radial Normal capillary refill: Yes - Abdominal Inspection: Normal Distension: No distension Bowel sounds: Normal Tenderness: Nontender. No: Tender, McBurney's point, Collazo's sign, Guarding, Rebound, Other Organomegaly: No organomegaly - Back Back: Normal, Nontender - Extremities General upper extremity: Normal inspection, Nontender, Normal color, Normal ROM , Normal strength, Normal temperature. No: Edema General lower extremity: Normal inspection, Nontender, Normal color, Normal ROM , Normal strength, Normal temperature, Normal weight bearing. No: Edema - Neurological Neuro grossly intact: Yes Cognition: Normal Orientation: AAOx4 [place] Coma Scale Eye Opening: Spontaneous [place] Coma Scale Verbal: Oriented [place] Coma Scale Motor: Obeys Commands [place] Coma Scale Total: 15 Speech: Normal Cranial nerves: Normal Cerebellar coordination: Normal Motor strength normal: LUE, RUE, LLE, RLE Additional motor exam normals: Equal drill press hand Sensory: Normal - Psychological Associated symptoms: Restlessness - Skin Skin Temperature: Warm Skin Moisture: Dry Skin Color: Normal Course - Re-evaluation Re-evalutation: 09/08/16 06:30 Patient hemodynamically stable, in no distress, afebrile, nontoxic, and neurologically intact. Labs appear to be at patient's baseline when compared to previous results during multiple previous ED visits. Today's patient drug screen was positive for benzodiazepines, opiates, barbiturates, cocaine, marijuana. Patient admits use of these drugs and when asked if he wants to quit states he is unsure. Encouraged patient to go to [facility] from ED and he is agreeable. Pt denies si/hi. Pt appears stable for discharge at this time. Discussed patient presentation, findings, ED care, and plan with ED physician Dr. Daniel who concurs with evaluation and treatment. - Vital Signs Vital signs: Temp Pulse Resp BP Pulse Ox 15 128/78 H 97 09/08/16 06:04 09/08/16 06:04 09/08/16 06:04 - Laboratory Result Diagrams: 09/08/16 03:31 09/08/16 03:31 Laboratory results interpreted by me: 09/08/16 09/08/16 09/08/16 03:31 03:31 05:25 Basophils % 3.0 H Absolute Basophils 0.3 H Chloride 90 L Anion Gap 29 H BUN 3 L Glucose 134 H Calcium 10.7 H Total Bilirubin 1.5 H Direct Bilirubin 1.0 H AST 291 H ALT 77 H Alkaline Phosphatase 242 H Total Protein 9.6 H Albumin 5.3 H Urine Protein 100 H Urine Urobilinogen 2.0 H Salicylates < 1.0 L Acetaminophen < 10 L - EKG Interpretation by Me EKG shows normal: Sinus rhythm, [place], Intervals, QRS Complexes, ST-T Waves Rate: Tachycardia When compared to previous EKG there are: No significant change Discharge - Discharge Clinical Impression: Substance abuse Alcohol dependence with withdrawal Qualifiers: Complication of substance-induced condition: uncomplicated Qualified Code(s): F10.230 - Alcohol dependence with withdrawal, uncomplicated Condition: Stable Disposition: HOME, SELF-CARE Instructions: Alcohol Withdrawl ([facility]), Chronic Alcoholism ([facility]), Cocaine Abuse ([facility]), Narcotic Abuse ([facility]), Barbiturate Abuse ([facility]) Additional Instructions: Go to [facility] upon discharge from the ED. Return to the Emergency Department for any worsening symptoms. Forms: Elevated Blood Pressure Referrals: [facility] [Provider Group] - 09/08/16
[2016-09-08 06:00] LABS: APPEARANCE,URINE SLIGHTLY-CLOUDY; BILIRUBIN,URINE NEGATIVE (NEGATIVE); GLUCOSE, URINE NEGATIVE (NEGATIVE); KETONES,URINE NEGATIVE (NEGATIVE); LEUKOCYTE ESTERASE,URINE NEGATIVE (NEGATIVE); NITRITE,URINE NEGATIVE (NEGATIVE); PROTEIN,URINE 100 mg/dL (NEGATIVE)
[2016-09-08 06:07] LABS: URINE BARBITURATES SCREEN UNCONFIRMED POSITIVE; URINE METHADONE SCREEN NEGATIVE; URINE OPIATES LOW UNCONFIRMED POSITIVE; URINE PHENCYCLIDINE SCREEN NEGATIVE
[2016-09-08 06:41] VITALS: BP 128/78
--- NOTE | 2016-09-08 08:27 | EKG REPORT ---
SEVERITY:- ABNORMAL ECG - SINUS TACHYCARDIA NONSPECIFIC T ABNORMALITIES, INFERIOR LEADS BORDERLINE PROLONGED QT INTERVAL : Confirmed by: Braden Elias 08-Sep-2016 08:26:07
== END 2016-09-08 06:37 | disposition home or self-care (01) ==
LOC: ER 01:54
DX: F10.230 Alcohol dependence with withdrawal, uncomplicated (principal); R11.2 Nausea with vomiting, unspecified; R10.13 Epigastric pain; R25.1 Tremor, unspecified; R00.0 Tachycardia, unspecified; F17.200 Nicotine dependence, unspecified, uncomplicated; F14.10 Cocaine abuse, uncomplicated; F11.10 Opioid abuse, uncomplicated; F13.10 Sedative, hypnotic or anxiolytic abuse, uncomplicated; F12.10 Cannabis abuse, uncomplicated; I10 Essential (primary) hypertension; Z88.2 Allergy status to sulfonamides; Z86.73 Personal history of transient ischemic attack (TIA), and cerebral infarction without residual deficits; Z88.8 Allergy status to other drugs, medicaments and biological substances
CPT/HCPCS: 93005; 99285; 96361; 96374; 96375; 36415; 80307 ×4; 83690; 85025; 80053; 81001; 93010; J2060; J2405; J7030

== ENCOUNTER 2016-09-16 16:42 | Emergency (ER) | payer SELFPAY ==
[2016-09-16] MEDS ORDERED: ONDANSETRON HCL INJ/PF 4 MG/2 ML SDV IV ONE (16:55)
--- NOTE | 2016-09-16 17:02 | ER Document Report ---
ED Medical Screen (RME) - General Chief Complaint: Vomiting Stated Complaint: VOMITING BLOOD Notes: Patient has been vomiting blood this morning. Has a history of this problem, seen here a year ago and on other occasions and admitted for GI bleeding. He has a history of alcohol abuse and continues to drink, even this morning. Also a history of hepatitis C. Complains of generalized abdominal pain, but more in the upper half, especially to the right side. No fevers. No surgeries. TRAVEL OUTSIDE OF THE [place] IN LAST 30 DAYS: No - Related Data Allergies/Adverse Reactions: carisoprodol [From Soma] Allergy (Verified 08/28/16 03:15) Sulfa (Sulfonamide Antibiotics) Allergy (Verified 08/28/16 03:15) Past Medical History - Past Medical History Cardiac Medical History: Reports: Hx Hypercholesterolemia, Hx Hypertension Pulmonary Medical History: Reports: Hx Bronchitis Neurological Medical History: Reports: Hx Cerebrovascular Accident - States he has had a TIA Renal/ Medical History: Denies: Hx Peritoneal Dialysis GI Medical History: Reports: Hx Gastritis, Hx Hepatitis - Hepatitis-C, Hx Ulcer , Hx Endoscopy Musculoskeltal Medical History: Reports Hx Arthritis, Reports Hx Gout, Reports Hx Musculoskeletal Deformity, Reports Hx Musculoskeletal Trauma Psychiatric Medical History: Reports: Hx Anxiety, Hx Bipolar Disorder, Hx Depression Traumatic Medical History: Reports: Hx Fractures - Right hand Infectious Medical History: Reports: Hx Hepatitis - Hepatitis-C Past Surgical History: Reports: Hx Orthopedic Surgery - R hand - Immunizations Immunizations up to date: Yes Hx Diphtheria, Pertussis, Tetanus Vaccination: Yes Physical Exam - Vital signs Vitals: Temp Pulse Resp BP Pulse Ox 97.4 F 120 H 16 160/111 H 95 09/16/16 16:50 09/16/16 16:50 09/16/16 16:50 09/16/16 16:50 09/16/16 16:50 Course - Vital Signs Vital signs: Temp Pulse Resp BP Pulse Ox 97.4 F 120 H 16 160/111 H 95 09/16/16 16:50 09/16/16 16:50 09/16/16 16:50 09/16/16 16:50 09/16/16 16:50
[2016-09-16] MEDS ORDERED: NORMAL SALINE 1000 ML 1,000 ML IV PRN ×2 (17:08→21:26)
[2016-09-16] MEDS ORDERED: PANTOPRAZOLE SODIUM 40 MG VIAL IV ONE (17:08)
--- NOTE | 2016-09-16 17:11 | ER Document Report ---
ED GI/ - General Chief Complaint: Vomiting Stated Complaint: VOMITING BLOOD Time seen by provider: 17:11 Mode of Arrival: Ambulatory Information source: Patient TRAVEL OUTSIDE OF THE [place] IN LAST 30 DAYS: No - HPI Patient complains to provider of: Vomiting Onset: This afternoon Timing/Duration: Sudden Quality of pain: Achy Severity at maximum: Moderate Severity in ED: Moderate Location: Epigastric Associated symptoms: Nausea, Vomiting Exacerbated by: Denies Relieved by: Denies Similar symptoms previously: Yes Recently seen / treated by doctor: No Notes: 09/17/16 00:47 Patient is a 31-year-old male who presents to the emergency room complaining of vomiting blood, started a few hours prior to arrival in the emergency room, he reports he has not been eating for the past 4 days, he noted bright red blood with his vomiting today, denies any fever, has a history of similar symptoms and a history of chronic alcoholism, states he had 2 drinks today, denies any abdominal surgeries, he ran out of his blood pressure medications and is not currently taking any other medications, his mother Fela is at bedside - Related Data Allergies/Adverse Reactions: carisoprodol [From Soma] Allergy (Verified 08/28/16 03:15) Sulfa (Sulfonamide Antibiotics) Allergy (Verified 08/28/16 03:15) Past Medical History - General Information source: Patient - Social History Smoking Status: Never Smoker Frequency of alcohol use: Heavy Family History: CAD, CVA, Hyperlipidemia, Hypertension, Malignancy, Thyroid Disfunction Patient has suicidal ideation: No Patient has homicidal ideation: No - Past Medical History Cardiac Medical History: Reports: Hx Hypercholesterolemia, Hx Hypertension Pulmonary Medical History: Reports: Hx Bronchitis Neurological Medical History: Reports: Hx Cerebrovascular Accident - States he has had a TIA Renal/ Medical History: Denies: Hx Peritoneal Dialysis GI Medical History: Reports: Hx Gastritis, Hx Hepatitis - Hepatitis-C, Hx Ulcer , Hx Endoscopy Musculoskeltal Medical History: Reports Hx Arthritis, Reports Hx Gout, Reports Hx Musculoskeletal Deformity, Reports Hx Musculoskeletal Trauma Psychiatric Medical History: Reports: Hx Anxiety, Hx Bipolar Disorder, Hx Depression Traumatic Medical History: Reports: Hx Fractures - Right hand Infectious Medical History: Reports: Hx Hepatitis - Hepatitis-C Past Surgical History: Reports: Hx Orthopedic Surgery - R hand - Immunizations Immunizations up to date: Yes Hx Diphtheria, Pertussis, Tetanus Vaccination: Yes Review of Systems - Review of Systems Constitutional: No symptoms reported EENT: No symptoms reported Cardiovascular: No symptoms reported Respiratory: No symptoms reported Gastrointestinal: See HPI Genitourinary: No symptoms reported Male Genitourinary: No symptoms reported Musculoskeletal: No symptoms reported Skin: No symptoms reported Hematologic/Lymphatic: No symptoms reported Neurological/Psychological: No symptoms reported -: Yes All other systems reviewed and negative Physical Exam - Vital signs Vitals: Temp Pulse Resp BP Pulse Ox 97.4 F 120 H 16 160/111 H 95 09/16/16 16:50 09/16/16 16:50 09/16/16 16:50 09/16/16 16:50 09/16/16 16:50 Interpretation: Tachycardic - General General appearance: Appears well, Alert - HEENT Head: Normocephalic, Atraumatic Eyes: Normal Pupils: PERRL - Respiratory Respiratory status: No respiratory distress Chest status: Nontender Breath sounds: Normal Chest palpation: Normal - Cardiovascular Rhythm: Regular Heart sounds: Normal auscultation Murmur: No - Abdominal Inspection: Normal Distension: No distension Bowel sounds: Normal Tenderness: Tender - Epigastric Organomegaly: No organomegaly - Back Back: Normal, Nontender - Extremities General upper extremity: Normal inspection, Nontender, Normal color, Normal ROM , Normal temperature General lower extremity: Normal inspection, Nontender, Normal color, Normal ROM , Normal temperature, Normal weight bearing. No: Rukhsana's sign - Neurological Neuro grossly intact: Yes Cognition: Normal Orientation: AAOx4 [place] Coma Scale Eye Opening: Spontaneous [place] Coma Scale Verbal: Oriented [place] Coma Scale Motor: Obeys Commands [place] Coma Scale Total: 15 Speech: Normal Motor strength normal: LUE, RUE, LLE, RLE Sensory: Normal - Psychological Associated symptoms: Flat affect - Skin Skin Temperature: Warm Skin Moisture: Dry Skin Color: Normal Course - Re-evaluation Re-evalutation: 09/16/16 23:29 Patient reports feeling much better, he has not had any vomiting while in the emergency room, he did report having vomiting on ultrasound, I was able to obtain the emesis bags from the histopathology technician, and they contain clear fluid with a small amount of bilious fluid, there was no visible blood, vital signs are stable, labs are relatively stable and discussed with patient, consistent with alcoholic liver disease, patient was advised to stop drinking alcohol, was provided with information for resources for rehabilitation, advised to return if symptoms worsen, patient acknowledges understanding and agreement with this plan - Vital Signs Vital signs: Temp Pulse Resp BP Pulse Ox 98.3 F 98 20 145/97 H 98 09/16/16 23:00 09/16/16 23:00 09/16/16 23:00 09/16/16 23:00 09/16/16 23:00 - Laboratory Result Diagrams: 09/16/16 17:10 09/16/16 17:10 Laboratory results interpreted by me: 09/16/16 09/16/16 09/16/16 17:10 17:10 18:25 RDW 14.2 H Basophils % 2.8 H Sodium 147.8 H Chloride 93 L Anion Gap 33 H BUN < 2 L Glucose 135 H Total Bilirubin 2.1 H Direct Bilirubin 1.6 H AST 387 H Alkaline Phosphatase 228 H Total Protein 9.5 H Urine Protein 30 H - Diagnostic Test Radiology reviewed: Image reviewed, Reports reviewed Discharge - Discharge Clinical Impression: Epigastric abdominal pain Abdominal pain Qualifiers: Abdominal location: generalized Qualified Code(s): R10.84 - Generalized abdominal pain Alcohol dependence Qualifiers: Substance use status: uncomplicated Qualified Code(s): F10.20 - Alcohol dependence, uncomplicated Vomiting Qualifiers: Vomiting type: unspecified Vomiting Intractability: non-intractable Nausea presence: with nausea Qualified Code(s): R11.2 - Nausea with vomiting, unspecified Condition: Stable Disposition: HOME, SELF-CARE Instructions: Abdominal Pain ([facility]), Antinausea Medication ([facility]), Intravenous ( IV) Fluids ([facility]), Vomiting ([facility]), Gastritis ([facility]), Acute Alcohol Intoxication ( [facility]), Chronic Alcoholism ([facility]) Additional Instructions: Follow up with your primary care provider, a mental health professional and substance abuse services in one to 2 days. Return to the emergency room immediately if symptoms worsen or any additional concerns. Stop drinking alcohol! Prescriptions: Clonidine HCl 0.1 mg PO TID #90 tablet Lisinopril 10 mg PO DAILY #30 tablet Lorazepam [Ativan 1 mg Tablet] 1 mg PO Q4 PRN #10 tab PRN Reason: Forms: Elevated Blood Pressure
[2016-09-16] MEDS ORDERED: MORPHINE SULFATE 10 MG/ML INJ IV ONE ×2 (17:43→21:26)
[2016-09-16 17:55] LABS: ABSOLUTE BASOPHILS # (AUTO) 0.2 10^3/uL (0.0-0.2); ABSOLUTE LYMPHOCYTES (AUTO) 3.1 10^3/uL (0.5-4.7); ABSOLUTE MONOCYTES (AUTO) 0.5 10^3/uL (0.1-1.4); ABSOLUTE NEUT (AUTO) 3.2 10^3/uL (1.7-8.2); BASOPHILS % (AUTO) 2.8 % (0-2); EOSINOPHILS % (AUTO) 0.4 % (0-6); HEMATOCRIT 40.3 % (37.9-51.0); HGB HCT DIFFERENCE 1.7; LYMPHOCYTES % (AUTO) 44.5 % (13-45); MEAN CORPUSCULAR HEMOGLOBIN 31.8 pg (27.0-33.4); MEAN CORPUSCULAR HGB CONC 34.7 g/dL (32.0-36.0); MEAN CORPUSCULAR VOLUME 92 fl (80-97); RED CELL DISTRIBUTION WIDTH 14.2 % (11.5-14.0); SEGMENTED NEUTROPHILS % (AUTO) 45.3 % (42-78); WHITE BLOOD COUNT 7.1 10^3/uL (4.0-10.5)
[2016-09-16 18:01] LABS: PARTIAL THROMBOPLASTIN TIME 29.4 SEC (23.5-35.8)
[2016-09-16 18:19] LABS: ALANINE AMINOTRANSFERASE 62 U/L (21-72); ALCOHOL 270 mg/dL (NONE DETECTED); ALKALINE PHOSPHATASE 228 U/L (38-126); ASPARTATE AMINO TRANSFERASE 387 U/L (17-59); BILIRUBIN,DIRECT 1.6 mg/dL (0.0-0.4); BILIRUBIN,TOTAL 2.1 mg/dL (0.2-1.3); CALCIUM 9.9 mg/dL (8.4-10.2); CREATININE RESULT 0.55 mg/dL (0.52-1.25); GLUCOSE 135 mg/dL (75-110); LIPASE 188.5 U/L (23-300); POTASSIUM 3.7 mmol/L (3.6-5.0); TOTAL PROTEIN 9.5 g/dL (6.3-8.2)
[2016-09-16 18:27] LABS: BLOOD UREA NITROGEN < 2 mg/dL (7-20)
[2016-09-16 18:56] LABS: CARBON DIOXIDE 22 mmol/L (22-30); CHLORIDE 93 mmol/L (98-107); SODIUM 147.8 mmol/L (137-145)
[2016-09-16 18:59] LABS: ANION GAP 33 (5-19)
[2016-09-16] MEDS ORDERED: LORAZEPAM INJ 2 MG/1 ML VIAL IV ONE ×2 (19:05→22:51)
[2016-09-16 19:58] LABS: APPEARANCE,URINE CLEAR; BILIRUBIN,URINE NEGATIVE (NEGATIVE); GLUCOSE, URINE NEGATIVE (NEGATIVE); KETONES,URINE NEGATIVE (NEGATIVE); LEUKOCYTE ESTERASE,URINE NEGATIVE (NEGATIVE); NITRITE,URINE NEGATIVE (NEGATIVE); PROTEIN,URINE 30 mg/dL (NEGATIVE); URINE SPECIFIC GRAVITY 1.008; UROBILINOGEN,URINE NEGATIVE mg/dL (<2.0)
[2016-09-16 20:24] LABS: URINE BARBITURATES SCREEN NEGATIVE; URINE METHADONE SCREEN NEGATIVE; URINE OPIATES LOW UNCONFIRMED POSITIVE; URINE PHENCYCLIDINE SCREEN NEGATIVE
[2016-09-16] MEDS ORDERED: LORAZEPAM 1 MG TABLET PO ONE (23:29)
[2016-09-17 07:37] VITALS: BP 145/92
== END 2016-09-17 | disposition home or self-care (01) ==
LOC: ER 16:42
DX: F10.20 Alcohol dependence, uncomplicated (principal); R11.14 Bilious vomiting; R10.84 Generalized abdominal pain; R10.816 Epigastric abdominal tenderness; I10 Essential (primary) hypertension; R00.0 Tachycardia, unspecified; Z91.14 Patient's other noncompliance with medication regimen; Z88.8 Allergy status to other drugs, medicaments and biological substances; Z88.2 Allergy status to sulfonamides; Z86.73 Personal history of transient ischemic attack (TIA), and cerebral infarction without residual deficits; Z86.19 Personal history of other infectious and parasitic diseases; Z87.19 Personal history of other diseases of the digestive system
CPT/HCPCS: 96376; 99284; 96361; 96374; 96375; 36415; 80307 ×2; 83690; 85025; 85610; 85730; 82271; 80053; 81001; 76705; J2270; J2060; S0164; J2405; J7030

== ENCOUNTER 2016-10-23 12:20 | Inpatient (IN) | payer SELFPAY ==
[2016-10-23] MEDS ORDERED: NORMAL SALINE 1000 ML 1,000 ML IV ONE (12:38)
[2016-10-23] MEDS ORDERED: ONDANSETRON HCL INJ/PF 4 MG/2 ML SDV IV ONE (12:38)
--- NOTE | 2016-10-23 12:40 | ER Document Report ---
ED Medical Screen (RME) - General Chief Complaint: Abdominal Pain Stated Complaint: VOMITING BLOOD/ABDOMINAL PAIN Time Seen by Provider: 10/23/16 12:32 Mode of Arrival: Ambulatory Information source: Patient Notes: 31 yr old alcoholic with pancreatitis who last had a drink this morning presents with complaints of vomiting I have greeted and performed a rapid initial assessment of this patient. A comprehensive ED assessment and evaluation of the patient, analysis of test results and completion of the medical decision making process will be conducted by additional ED providers. PHYSICAL EXAMINATION: GENERAL: Well-appearing, well-nourished and is actively vomiting HEAD: Atraumatic, normocephalic. EYES: Pupils equal round extraocular movements intact, conjunctiva are normal. ENT: Nares patent NECK: Normal range of motion LUNGS: No respiratory distress Musculoskeletal: Normal range of motion NEUROLOGICAL: Normal speech, normal gait. PSYCH: Normal mood, normal affect. SKIN: Warm, Dry, normal turgor, no rashes or lesions noted. TRAVEL OUTSIDE OF THE [place] IN LAST 30 DAYS: No - Related Data Allergies/Adverse Reactions: carisoprodol [From Soma] Allergy (Verified 10/23/16 12:22) Sulfa (Sulfonamide Antibiotics) Allergy (Verified 10/23/16 12:22) Past Medical History - Social History Chew tobacco use (# tins/day): No Frequency of alcohol use: Heavy Drug Abuse: None - Past Medical History Cardiac Medical History: Reports: Hx Hypercholesterolemia, Hx Hypertension Pulmonary Medical History: Reports: Hx Bronchitis Neurological Medical History: Reports: Hx Cerebrovascular Accident - States he has had a TIA Renal/ Medical History: Denies: Hx Peritoneal Dialysis GI Medical History: Reports: Hx Gastritis, Hx Hepatitis - Hepatitis-C, Hx Ulcer , Hx Endoscopy Musculoskeltal Medical History: Reports Hx Arthritis, Reports Hx Gout, Reports Hx Musculoskeletal Deformity, Reports Hx Musculoskeletal Trauma Psychiatric Medical History: Reports: Hx Anxiety, Hx Bipolar Disorder, Hx Depression Traumatic Medical History: Reports: Hx Fractures - Right hand Infectious Medical History: Reports: Hx Hepatitis - Hepatitis-C Past Surgical History: Reports: Hx Orthopedic Surgery - R hand - Immunizations Immunizations up to date: Yes Hx Diphtheria, Pertussis, Tetanus Vaccination: Yes Physical Exam - Vital signs Vitals: Resp 20 10/23/16 12:32 Course - Vital Signs Vital signs: Temp Pulse Resp BP Pulse Ox 20 10/23/16 12:32
[2016-10-23] MEDS ORDERED: MORPHINE SULFATE 10 MG/ML INJ IV ONE ×3 (12:52→17:30)
[2016-10-23 13:05] LABS: ABSOLUTE BASOPHILS # (AUTO) 0.2 10^3/uL (0.0-0.2); ABSOLUTE MONOCYTES (AUTO) 0.6 10^3/uL (0.1-1.4); ABSOLUTE NEUT (AUTO) 15.3 10^3/uL (1.7-8.2); BASOPHILS % (AUTO) 1.3 % (0-2); EOSINOPHILS % (AUTO) 0.2 % (0-6); HEMATOCRIT 43.6 % (37.9-51.0); HEMOGLOBIN 14.9 g/dL (13.5-17.0); HGB HCT DIFFERENCE 1.1; LYMPHOCYTES % (AUTO) 15.8 % (13-45); MEAN CORPUSCULAR HEMOGLOBIN 32.4 pg (27.0-33.4); MEAN CORPUSCULAR HGB CONC 34.2 g/dL (32.0-36.0); MEAN CORPUSCULAR VOLUME 95 fl (80-97); MONOCYTES % (AUTO) 3.1 % (3-13); RED CELL DISTRIBUTION WIDTH 15.1 % (11.5-14.0); SEGMENTED NEUTROPHILS % (AUTO) 79.6 % (42-78); WHITE BLOOD COUNT 19.3 10^3/uL (4.0-10.5)
[2016-10-23] MEDS ORDERED: LORAZEPAM INJ 2 MG/1 ML VIAL IV ONE ×3 (13:20→18:51)
--- NOTE | 2016-10-23 13:25 | ER Document Report ---
ED GI/ - General Chief Complaint: Abdominal Pain Stated Complaint: VOMITING BLOOD/ABDOMINAL PAIN Time Seen by Provider: 10/23/16 12:32 Mode of Arrival: Ambulatory Notes: The patient is a 31-year-old male, past medical history chronic alcoholic, chronic pancreatitis, chronic cocaine user, HTN, presents with epigastric abdominal pain, nausea and multiple episodes of vomiting. His last vomiting episode had small streaks of blood in it. He last used cocaine 2 days ago and his last drink was last night and he feels like he is withdrawing. He was admitted to [facility] 2 weeks ago for 7 days for pancreatitis. Patient denies lightheadedness, hallucinations, chest pain, back pain, yolanda hematemesis, diarrhea, constipation, black tarry stools or fever. TRAVEL OUTSIDE OF THE [place] IN LAST 30 DAYS: No - Related Data Allergies/Adverse Reactions: carisoprodol [From Soma] Allergy (Verified 10/23/16 12:22) Sulfa (Sulfonamide Antibiotics) Allergy (Verified 10/23/16 12:22) Past Medical History - General Information source: Patient - Social History Smoking Status: Current Every Day Smoker Chew tobacco use (# tins/day): No Frequency of alcohol use: Heavy Drug Abuse: Cocaine - Last used 10/21/16 Family History: CAD, CVA, Hyperlipidemia, Hypertension, Malignancy, Thyroid Disfunction Patient has suicidal ideation: No Patient has homicidal ideation: No - Past Medical History Cardiac Medical History: Reports: Hx Hypercholesterolemia, Hx Hypertension Pulmonary Medical History: Reports: Hx Bronchitis Neurological Medical History: Reports: Hx Cerebrovascular Accident - States he has had a TIA Renal/ Medical History: Denies: Hx Peritoneal Dialysis GI Medical History: Reports: Hx Gastritis, Hx Hepatitis - Hepatitis-C, Hx Ulcer , Hx Endoscopy Musculoskeltal Medical History: Reports Hx Arthritis, Reports Hx Gout, Reports Hx Musculoskeletal Deformity, Reports Hx Musculoskeletal Trauma Psychiatric Medical History: Reports: Hx Anxiety, Hx Bipolar Disorder, Hx Depression Traumatic Medical History: Reports: Hx Fractures - Right hand Infectious Medical History: Reports: Hx Hepatitis - Hepatitis-C Past Surgical History: Reports: Hx Orthopedic Surgery - R hand - Immunizations Immunizations up to date: Yes Hx Diphtheria, Pertussis, Tetanus Vaccination: Yes Review of Systems - Review of Systems Notes: REVIEW OF SYSTEMS: CONSTITUTIONAL: -fevers, -chills EENT: -eye pain, -difficulty swallowing, -nasal congestion CARDIOVASCULAR:-chest pain, -syncope. RESPIRATORY: -cough, -SOB GASTROINTESTINAL: +abdominal pain, +nausea, +vomiting, -diarrhea GENITOURINARY: -dysuria, -hematuria MUSCULOSKELETAL: -back pain, -neck pain SKIN: -rash or skin lesions. HEMATOLOGIC: -easy bruising or bleeding. LYMPHATIC: -swollen, enlarged glands. NEUROLOGICAL: -altered mental status or loss of consciousness, -headache, - seizures, +shakiness PSYCHIATRIC: -anxiety, -depression. ALL OTHER SYSTEMS REVIEWED AND NEGATIVE. Physical Exam - Vital signs Vitals: Resp 20 10/23/16 12:32 - Notes Notes: PHYSICAL EXAMINATION: GENERAL: Uncomfortable. Mildly agitated. Tremors. HEAD: Atraumatic, normocephalic. EYES: Pupils equal round and reactive to light, extraocular movements intact, sclera anicteric, conjunctiva are normal. ENT: nares patent, oropharynx clear without exudates. Moist mucous membranes. NECK: Normal range of motion, supple without lymphadenopathy LUNGS: Breath sounds clear to auscultation bilaterally and equal. No wheezes rales or rhonchi. HEART: Tachycardic. Regular rhythm. ABDOMEN: Soft, moderate epigastric tenderness. No masses appreciated. Rectal exam with brown stool. EXTREMITIES: Normal range of motion, no pitting or edema. No cyanosis. NEUROLOGICAL: Cranial nerves grossly intact. Normal speech, normal gait. Normal sensory, motor, and reflex exams. PSYCH: Mildly agitated. SKIN: Warm, Dry, normal turgor, no rashes or lesions noted. Course - Re-evaluation Re-evalutation: Patient with epigastric pain, vomiting and tremors. He is tachycardiac with leukocytosis, but he is afebrile. On labs, he has an elevated anion gap with normal blood glucose. There is concern for alcohol ketoacidosis with tachycardia, elevated anion gap and normal blood sugar. However, his pH on VBG is only 7.4. He has a leukocytosis, elevated lactate of 6.5 and tachycardia, but no fever. No clear source of infection with a normal chest x-ray, RUQ US and urine. He was pancultured and started on broad-spectrum antibiotics due to his recent hospitalization 2 weeks ago. Also, there is a concern about alcohol withdrawal with a negative alcohol level and tremulousness. His CIWA score is 13 at 14:00. Patient also has a normal lipase level, but he says that his lipase level is often normal because of his chronic pancreatitis. CT shows fatty infiltration of the liver, but no evidence of pancreatitis or any other acute changes. Pt says that he noticed a small amount blood in his emesis, but his hemoglobin is 15 and his emesis episodes in the ER are nonbilious and nonbloody. Brown stool. Pt will require Inpatient admission for further evaluation and monitoring of his symptoms. 10/23/16 19:[address] Gamino and will admit patient as Inpatient. Recommending repeating BMP. Repeat lactate is also pending. - Vital Signs Vital signs: Temp Pulse Resp BP Pulse Ox 17 118/71 94 10/23/16 19:01 10/23/16 19:00 10/23/16 19:01 - Laboratory Result Diagrams: 10/23/16 12:38 10/23/16 12:38 Laboratory results interpreted by me: 10/23/16 10/23/16 10/23/16 12:38 12:38 14:55 WBC 19.3 H RDW 15.1 H Seg Neutrophils % 79.6 H Absolute Neutrophils 15.3 H VBG pH 7.44 H Chloride 90 L Anion Gap 27 H BUN 6 L Glucose 145 H Lactic Acid Total Bilirubin 2.5 H Direct Bilirubin 1.9 H AST 195 H Alkaline Phosphatase 285 H Total Protein 10.3 H Urine Protein Urine Bilirubin Urine Urobilinogen 10/23/16 10/23/16 14:55 16:00 WBC RDW Seg Neutrophils % Absolute Neutrophils VBG pH Chloride Anion Gap BUN Glucose Lactic Acid 6.4 H Total Bilirubin Direct Bilirubin AST Alkaline Phosphatase Total Protein Urine Protein 30 H Urine Bilirubin SMALL H Urine Urobilinogen 4.0 H - Diagnostic Test Radiology reviewed: Image reviewed, Reports reviewed Radiology results interpreted by me: CT A/P: HEPATOMEGALY WITH DIFFUSE FATTY INFILTRATION OF THE LIVER. NO OTHER ACUTE OR SIGNIFICANT FINDINGS. Critical Care Note - Critical Care Note Total time excluding time spent on procedures (mins): 65 Discharge - Discharge Clinical Impression: Epigastric abdominal pain, Tachycardia, Elevated lactic acid level Alcohol withdrawal Qualifiers: Complication of substance-induced condition: uncomplicated Qualified Code(s): F10.230 - Alcohol dependence with withdrawal, uncomplicated Nausea and vomiting Qualifiers: Vomiting type: unspecified Vomiting Intractability: non-intractable Qualified Code(s): R11.2 - Nausea with vomiting, unspecified Condition: Serious Disposition: ADMITTED INPATIENT Admitting Provider: [facility] Admitted: Telemetry
[2016-10-23 13:29] LABS: ALANINE AMINOTRANSFERASE 62 U/L (21-72); ALKALINE PHOSPHATASE 285 U/L (38-126); ASPARTATE AMINO TRANSFERASE 195 U/L (17-59); BILIRUBIN,DIRECT 1.9 mg/dL (0.0-0.4); BILIRUBIN,TOTAL 2.5 mg/dL (0.2-1.3); BLOOD UREA NITROGEN 6 mg/dL (7-20); CALCIUM 9.7 mg/dL (8.4-10.2); CARBON DIOXIDE 26 mmol/L (22-30); CHLORIDE 90 mmol/L (98-107); CREATININE RESULT 0.96 mg/dL (0.52-1.25); GLUCOSE 145 mg/dL (75-110); LIPASE 195.4 U/L (23-300); POTASSIUM 4.3 mmol/L (3.6-5.0); SODIUM 142.6 mmol/L (137-145); TOTAL PROTEIN 10.3 g/dL (6.3-8.2)
[2016-10-23 13:31] LABS: ALCOHOL < 10 mg/dL (NONE DETECTED); ANION GAP 27 (5-19)
[2016-10-23] MEDS: NORMAL SALINE 1000 ML 1,000 ML IV PRN ×2 (13:31→13:32)
[2016-10-23] MEDS ORDERED: PANTOPRAZOLE SODIUM 40 MG VIAL IV ONE (13:51)
[2016-10-23] MEDS ORDERED: DEXTROSE 5%-1/2 NORMAL SALINE 1,000 ML IV ONE ×2 (14:00→16:09)
[2016-10-23] MEDS ORDERED: LIDOCAINE 2% VISCOUS SOLN 20 ML UDCUP PO ONE (15:00)
[2016-10-23] MEDS ORDERED: MAG HYDROX/AL HYDROX/SIMETH SUSP 30 ML UDCUP PO ONE (15:00)
[2016-10-23] MEDS ORDERED: METOCLOPRAMIDE HCL ORAL SOLN 10 MG/10 ML UDCUP PO ONE (15:00)
[2016-10-23 15:10] LABS: VENOUS BLOOD BASE EXCESS 5.1 mmol/L; VENOUS BLOOD HCO3 30.1 mmol/L (20-32); VENOUS BLOOD PCO2 45.8 mmHg (35-63); VENOUS BLOOD PH 7.44 (7.30-7.42)
[2016-10-23 16:15] LABS: ADD ON TESTING BLD IN LAB ACKNOWLEDGE
[2016-10-23] MEDS ORDERED: PIPERACILLIN/TAZOBACTAM 3.375 GM VIAL IV ONE (16:17)
[2016-10-23] MEDS ORDERED: VANCOMYCIN HCL INJ 1000 MG VIAL IV ONE (16:17)
[2016-10-23 16:21] LABS: APPEARANCE,URINE SLIGHTLY-CLOUDY; BILIRUBIN,URINE SMALL (NEGATIVE); GLUCOSE, URINE NEGATIVE (NEGATIVE); KETONES,URINE NEGATIVE (NEGATIVE); LEUKOCYTE ESTERASE,URINE NEGATIVE (NEGATIVE); NITRITE,URINE NEGATIVE (NEGATIVE); PROTEIN,URINE 30 mg/dL (NEGATIVE); URINE SPECIFIC GRAVITY 1.019
[2016-10-23 16:25] LABS: CREATINE KINASE 93 U/L (55-170)
[2016-10-23 16:38] LABS: URINE BARBITURATES SCREEN NEGATIVE; URINE METHADONE SCREEN NEGATIVE; URINE OPIATES LOW UNCONFIRMED POSITIVE; URINE PHENCYCLIDINE SCREEN NEGATIVE
[2016-10-23] MEDS ORDERED: SUCRALFATE SUSP 1 GM/10 ML UDCUP PO ONE (19:52)
[2016-10-23] MEDS ORDERED: DIAZEPAM INJ 10 MG/2 ML DISP.SYRIN IV ONE (19:53)
[2016-10-23] MEDS ORDERED: IPRATROPIUM/ALBUTEROL 0.5-2.5 MG/3 ML AMPUL NEB PRN (19:55)
[2016-10-23] MEDS ORDERED: THIAMINE HCL 100 MG, FOLIC ACID 1 MG in NORMAL SALINE 50 ML IV ONE (20:00)
[2016-10-23] MEDS ORDERED: PANTOPRAZOLE SODIUM 40 MG VIAL IV PRN (20:01)
[2016-10-23 21:08] LABS: ABSOLUTE EOSINOPHILS # (AUTO) 0.1 10^3/uL (0.0-0.6); ABSOLUTE LYMPHOCYTES (AUTO) 3.5 10^3/uL (0.5-4.7); ABSOLUTE MONOCYTES (AUTO) 0.8 10^3/uL (0.1-1.4); ABSOLUTE NEUT (AUTO) 8.3 10^3/uL (1.7-8.2); BASOPHILS % (AUTO) 0.3 % (0-2); EOSINOPHILS % (AUTO) 0.6 % (0-6); HEMATOCRIT 33.9 % (37.9-51.0); HGB HCT DIFFERENCE 1.8; LYMPHOCYTES % (AUTO) 27.7 % (13-45); MEAN CORPUSCULAR HEMOGLOBIN 32.9 pg (27.0-33.4); MEAN CORPUSCULAR HGB CONC 35.1 g/dL (32.0-36.0); MEAN CORPUSCULAR VOLUME 94 fl (80-97); MONOCYTES % (AUTO) 6.6 % (3-13); RED BLOOD COUNT 3.62 10^6/uL (4.35-5.55); SEGMENTED NEUTROPHILS % (AUTO) 64.8 % (42-78); WHITE BLOOD COUNT 12.8 10^3/uL (4.0-10.5)
[2016-10-23 21:12] LABS: HEMOGLOBIN 11.9 g/dL (13.5-17.0)
[2016-10-23 21:16] LABS: ANION GAP 17 (5-19); BLOOD UREA NITROGEN 7 mg/dL (7-20); CALCIUM 7.6 mg/dL (8.4-10.2); CARBON DIOXIDE 26 mmol/L (22-30); CHLORIDE 94 mmol/L (98-107); GLUCOSE 79 mg/dL (75-110); POTASSIUM 4.1 mmol/L (3.6-5.0); SODIUM 136.7 mmol/L (137-145)
[2016-10-23 21:17] LABS: PHOSPHORUS 3.5 mg/dL (2.5-4.5); PROTHROMBIN TIME 14.2 SEC (11.4-15.4)
[2016-10-23] MEDS ORDERED: THIAMINE HCL INJ 200 MG/2 ML VIAL ONE (21:23)
[2016-10-23] MEDS ORDERED: FOLIC ACID INJ 5 MG/1 ML 10 ML VIAL IV PRN (21:26)
[2016-10-23 21:28] LABS: MAGNESIUM 0.9 mg/dL (1.6-2.3)
[2016-10-23] MEDS: LORAZEPAM INJ 2 MG/1 ML VIAL IV PRN (21:37)
[2016-10-23] MEDS ORDERED: MAGNESIUM SULFATE 100 ML IV ONE (21:43)
[2016-10-23] MEDS: THIAMINE HCL 100 MG, FOLIC ACID 1 MG in NORMAL SALINE 50 ML IV SCH (21:45)
[2016-10-23] MEDS: HEPARIN SOD (PORCINE) 5,000 UNIT/ML 1 ML SYRINGE SUBCUT SCH (21:49)
[2016-10-23] MEDS: HYDROMORPHONE HCL INJ/PF 2 MG/ML AMPULE IV PRN (23:55)
[2016-10-23] MEDS: NORMAL SALINE 100 ML with PANTOPRAZOLE SODIUM 80 MG IV PRN ×2 (23:55)
[2016-10-24] MEDS ORDERED: MAGNESIUM SULFATE 4 GM/100 ML RTUPB IV ONE (00:18)
[2016-10-24] MEDS: LORAZEPAM INJ 2 MG/1 ML VIAL IV PRN ×5 (02:14→19:42)
[2016-10-24] MEDS: HYDROMORPHONE HCL INJ/PF 2 MG/ML AMPULE IV PRN ×4 (03:04→19:42)
[2016-10-24 03:06] LABS: ABSOLUTE BASOPHILS # (AUTO) 0.1 10^3/uL (0.0-0.2); ABSOLUTE EOSINOPHILS # (AUTO) 0.1 10^3/uL (0.0-0.6); ABSOLUTE LYMPHOCYTES (AUTO) 2.3 10^3/uL (0.5-4.7); ABSOLUTE MONOCYTES (AUTO) 0.4 10^3/uL (0.1-1.4); BASOPHILS % (AUTO) 0.7 % (0-2); EOSINOPHILS % (AUTO) 1.3 % (0-6); HEMATOCRIT 31.2 % (37.9-51.0); HEMOGLOBIN 10.6 g/dL (13.5-17.0); HGB HCT DIFFERENCE 0.6; LYMPHOCYTES % (AUTO) 29.3 % (13-45); MEAN CORPUSCULAR HEMOGLOBIN 32.7 pg (27.0-33.4); MEAN CORPUSCULAR HGB CONC 34.1 g/dL (32.0-36.0); MEAN CORPUSCULAR VOLUME 96 fl (80-97); MONOCYTES % (AUTO) 5.4 % (3-13); RED BLOOD COUNT 3.25 10^6/uL (4.35-5.55); RED CELL DISTRIBUTION WIDTH 15.1 % (11.5-14.0); SEGMENTED NEUTROPHILS % (AUTO) 63.3 % (42-78); WHITE BLOOD COUNT 7.8 10^3/uL (4.0-10.5)
[2016-10-24 03:20] LABS: ALANINE AMINOTRANSFERASE 50 U/L (21-72); ALBUMIN 3.6 g/dL (3.5-5.0); ALKALINE PHOSPHATASE 178 U/L (38-126); ANION GAP 13 (5-19); ASPARTATE AMINO TRANSFERASE 96 U/L (17-59); BILIRUBIN,DIRECT 1.4 mg/dL (0.0-0.4); BILIRUBIN,TOTAL 2.1 mg/dL (0.2-1.3); BLOOD UREA NITROGEN 6 mg/dL (7-20); CALCIUM 7.3 mg/dL (8.4-10.2); CARBON DIOXIDE 28 mmol/L (22-30); CHLORIDE 97 mmol/L (98-107); CREATININE RESULT 0.89 mg/dL (0.52-1.25); GLUCOSE 92 mg/dL (75-110); POTASSIUM 4.1 mmol/L (3.6-5.0); SODIUM 138.3 mmol/L (137-145); TOTAL PROTEIN 6.9 g/dL (6.3-8.2)
[2016-10-24] MEDS: HEPARIN SOD (PORCINE) 5,000 UNIT/ML 1 ML SYRINGE SUBCUT SCH ×3 (06:31→21:15)
[2016-10-24 09:07] LABS: ABSOLUTE BASOPHILS # (AUTO) 0.1 10^3/uL (0.0-0.2); ABSOLUTE EOSINOPHILS # (AUTO) 0.2 10^3/uL (0.0-0.6); ABSOLUTE LYMPHOCYTES (AUTO) 2.8 10^3/uL (0.5-4.7); ABSOLUTE MONOCYTES (AUTO) 0.4 10^3/uL (0.1-1.4); ABSOLUTE NEUT (AUTO) 4.9 10^3/uL (1.7-8.2); BASOPHILS % (AUTO) 1.1 % (0-2); EOSINOPHILS % (AUTO) 1.9 % (0-6); HEMATOCRIT 34.6 % (37.9-51.0); HEMOGLOBIN 11.8 g/dL (13.5-17.0); HGB HCT DIFFERENCE 0.8; LYMPHOCYTES % (AUTO) 33.5 % (13-45); MEAN CORPUSCULAR VOLUME 94 fl (80-97); RED BLOOD COUNT 3.68 10^6/uL (4.35-5.55); RED CELL DISTRIBUTION WIDTH 14.7 % (11.5-14.0); SEGMENTED NEUTROPHILS % (AUTO) 58.5 % (42-78); WHITE BLOOD COUNT 8.3 10^3/uL (4.0-10.5)
[2016-10-24] MEDS ORDERED: HYDROMORPHONE HCL INJ/PF 2 MG/ML AMPULE IV ONE ×2 (09:15→11:00)
[2016-10-24] MEDS: DOCUSATE SODIUM 100 MG CAPSULE PO SCH ×2 (09:17→17:03)
[2016-10-24] MEDS ORDERED: NORMAL SALINE 1000 ML 1,000 ML IV PRN ×2 (09:30→09:39)
--- NOTE | 2016-10-24 09:58 | PDOC PROGRESS REPORT ---
Subjective Progress Note for:: 10/24/16 Subjective:: Still complains of abdominal pain with nausea. Reported good bowel movement earlier. Reported dark stools but stool for occult blood was negative. No reported temperature spikes or respiratory distress. No shortness of breath or chest pain. Ativan helps shaking. Physical Exam Vital Signs: Temp Pulse Resp BP Pulse Ox 98.8 F 102 H 16 123/73 97 10/24/16 08:03 10/24/16 09:35 10/24/16 09:35 10/24/16 08:03 10/24/16 09:35 Intake & Output 10/23/16 10/24/16 10/25/16 06:59 06:59 06:59 Intake Total 526 Output Total 500 Balance 26 Weight 87.9 kg General appearance: PRESENT: mild distress - due the pain Head exam: PRESENT: normocephalic Eye exam: PRESENT: EOMI Mouth exam: PRESENT: dry mucosa, neck supple Neck exam: ABSENT: JVD Respiratory exam: PRESENT: clear to auscultation jason Cardiovascular exam: PRESENT: RRR. ABSENT: gallop GI/Abdominal exam: PRESENT: hypoactive bowel sounds, soft, tenderness - Noted in the epigastric and periumbilical area. ABSENT: distended Extremities exam: ABSENT: pedal edema Neurological exam: PRESENT: alert, awake, oriented to person, oriented to place , oriented to time, oriented to situation, other - No tremors at this time Skin exam: PRESENT: dry, warm. ABSENT: cyanosis Results Laboratory Results: 10/24/16 08:55 10/24/16 02:55 10/23/16 10/23/16 10/23/16 20:50 20:50 20:50 WBC 12.8 H RBC 3.62 L Hgb 11.9 L D Hct 33.9 L MCV 94 MCH 32.9 MCHC 35.1 RDW 15.0 H Plt Count 228 Seg Neutrophils % 64.8 Lymphocytes % 27.7 Monocytes % 6.6 Eosinophils % 0.6 Basophils % 0.3 Absolute Neutrophils 8.3 H Absolute Lymphocytes 3.5 Absolute Monocytes 0.8 Absolute Eosinophils 0.1 Absolute Basophils 0.0 Sodium 136.7 L Potassium 4.1 Chloride 94 L Carbon Dioxide 26 Anion Gap 17 BUN 7 Creatinine 0.90 Est GFR ( Amer) > 60 Est GFR (Non-Af Amer) > 60 Glucose 79 Calcium 7.6 L Phosphorus 3.5 Magnesium 0.9 L* Total Bilirubin AST ALT Alkaline Phosphatase Total Protein Albumin 10/24/16 10/24/16 10/24/16 02:55 02:55 08:55 WBC 7.8 8.3 RBC 3.25 L 3.68 L Hgb 10.6 L 11.8 L Hct 31.2 L 34.6 L MCV 96 94 MCH 32.7 32.0 MCHC 34.1 34.0 RDW 15.1 H 14.7 H Plt Count 152 189 Seg Neutrophils % 63.3 58.5 Lymphocytes % 29.3 33.5 Monocytes % 5.4 5.0 Eosinophils % 1.3 1.9 Basophils % 0.7 1.1 Absolute Neutrophils 5.0 4.9 Absolute Lymphocytes 2.3 2.8 Absolute Monocytes 0.4 0.4 Absolute Eosinophils 0.1 0.2 Absolute Basophils 0.1 0.1 Sodium 138.3 Potassium 4.1 Chloride 97 L Carbon Dioxide 28 Anion Gap 13 BUN 6 L Creatinine 0.89 Est GFR ( Amer) > 60 Est GFR (Non-Af Amer) > 60 Glucose 92 Calcium 7.3 L Phosphorus Magnesium Total Bilirubin 2.1 H AST 96 H ALT 50 Alkaline Phosphatase 178 H Total Protein 6.9 Albumin 3.6 Impressions: Abdomen Ultrasound 10/23/16 13:51 IMPRESSION: FATTY LIVER. PANCREAS PARTIALLY OBSCURED. OTHERWISE NORMAL RIGHT UPPER QUADRANT ULTRASOUND. Chest X-Ray 10/23/16 16:07 IMPRESSION: NO ACUTE RADIOGRAPHIC FINDING IN THE CHEST. Abdomen/Pelvis CT 10/23/16 17:42 IMPRESSION: HEPATOMEGALY WITH DIFFUSE FATTY INFILTRATION OF THE LIVER. NO OTHER ACUTE OR SIGNIFICANT FINDINGS. Assessment & Plan - Diagnosis (1) Alcohol withdrawal Qualifiers: Complication of substance-induced condition: uncomplicated Qualified Code(s): F10.230 - Alcohol dependence with withdrawal, uncomplicated Is this a current diagnosis for this admission?: Yes (2) Alcoholic gastritis Qualifiers: Chronicity: unspecified Gastritis bleeding: presence of bleeding unspecified Qualified Code(s): K29.20 - Alcoholic gastritis without bleeding Is this a current diagnosis for this admission?: Yes (3) Chronic pancreatitis Qualifiers: Pancreatitis type: alcohol induced Qualified Code(s): K86.0 - Alcohol-induced chronic pancreatitis Is this a current diagnosis for this admission?: Yes (4) Fatty liver Is this a current diagnosis for this admission?: Yes (5) Polysubstance abuse Is this a current diagnosis for this admission?: Yes (6) Hypomagnesemia Is this a current diagnosis for this admission?: Yes (7) Essential hypertension Is this a current diagnosis for this admission?: Yes (8) Hyperlipidemia Qualifiers: Hyperlipidemia type: unspecified Qualified Code(s): E78.5 - Hyperlipidemia, unspecified Is this a current diagnosis for this admission?: Yes (9) History of hepatitis C Is this a current diagnosis for this admission?: Yes (10) Anxiety and depression Is this a current diagnosis for this admission?: Yes - Time Time Spent with patient: 25-34 minutes - Plan Summary Plan Summary: Continue IV hydration. Continue vitamin and thiamine supplements. Increase Dilaudid to 1 mg but decrease the frequency to every 4 hours when necessary. Continue current Ativan dose. Begin simethicone. Continue proton pump inhibitor. Replace magnesium and monitor electrolytes. Continue supportive care.
[2016-10-24] MEDS: SIMETHICONE 80 MG TAB.CHEW PO SCH ×4 (10:58→21:14)
[2016-10-24] MEDS ORDERED: ACETAMINOPHEN 325 MG TABLET PO PRN (16:45)
[2016-10-24] MEDS: NORMAL SALINE 100 ML with PANTOPRAZOLE SODIUM 80 MG IV PRN ×2 (18:21)
[2016-10-24] MEDS ORDERED: METHYLPREDNISOLONE INJ 125 MG/2 ML SDV IV ONE (18:45)
[2016-10-24 18:48] LABS: ABSOLUTE BASOPHILS # (AUTO) 0.1 10^3/uL (0.0-0.2); ABSOLUTE EOSINOPHILS # (AUTO) 0.1 10^3/uL (0.0-0.6); ABSOLUTE MONOCYTES (AUTO) 0.4 10^3/uL (0.1-1.4); ABSOLUTE NEUT (AUTO) 7.2 10^3/uL (1.7-8.2); BASOPHILS % (AUTO) 0.6 % (0-2); EOSINOPHILS % (AUTO) 0.7 % (0-6); HEMATOCRIT 33.2 % (37.9-51.0); HEMOGLOBIN 11.6 g/dL (13.5-17.0); HGB HCT DIFFERENCE 1.6; LYMPHOCYTES % (AUTO) 20.7 % (13-45); MEAN CORPUSCULAR HEMOGLOBIN 32.9 pg (27.0-33.4); MEAN CORPUSCULAR HGB CONC 34.9 g/dL (32.0-36.0); MEAN CORPUSCULAR VOLUME 94 fl (80-97); MONOCYTES % (AUTO) 3.9 % (3-13); RED BLOOD COUNT 3.52 10^6/uL (4.35-5.55); RED CELL DISTRIBUTION WIDTH 14.3 % (11.5-14.0); SEGMENTED NEUTROPHILS % (AUTO) 74.1 % (42-78); WHITE BLOOD COUNT 9.8 10^3/uL (4.0-10.5)
--- NOTE | 2016-10-24 20:22 | PDOC H&P ---
History of Present Illness Admission Date/PCP: 10/23/16 19:55 Patient complains of: Abdominal pain History of Present Illness: RAMBO MARTINEZ is a 31 year old male with a past medical history of alcohol abuse, polysubstance abuse and alcoholic pancreatitis. He been in his usual state of health until approximately 2 days prior to presentation with abdominal pain unable to tolerate by mouth secondary to nausea. He consumes approximately a fifth of alcohol per day with intolerance of food. He began vomiting approximately 12 hours prior to presentation with several episodes of small quantity of blood. In the emergency room he has severe metabolic acidosis started on D5 half-normal saline, Protonix, and sedation referred to the hospitalist for admission. Patient admits to ongoing polysubstance abuse and alcohol abuse. Past Medical History Cardiac Medical History: Reports: Hyperlipidema, Hypertension Pulmonary Medical History: Reports: Bronchitis GI Medical History: Reports: Hepatitis - Hepatitis-C, Other - Gastritis, alcoholic pancreatitis Musculoskeltal Medical History: Reports: Arthritis, Gout Psychiatric Medical History: Reports: Bipolar Disorder, Post Traumatic Stress Disorder, Substance Abuse, Tobacco Dependency Denies: Depression Past Surgical History Past Surgical History: Reports: Orthopedic Surgery - R hand Social History Information Source: Patient, [facility] Records Smoking Status: Former Smoker Frequency of Alcohol Use: Heavy Hx Recreational Drug Use: Yes Drugs: Cocaine, Marijuana Hx Prescription Drug Abuse: No - Advance Directive Resuscitation Status: Full Code Family History Family History: CAD, CVA, Hyperlipidemia, Hypertension, Malignancy, Thyroid Disfunction Parental Family History Reviewed: Yes Children Family History Reviewed: Yes Sibling(s) Family History Reviewed.: Yes Medication/Allergy Home Medications: Clonidine HCl [Catapres 0.1 mg Tablet] 0.1 mg PO Q8 10/24/16 Folic Acid [Folvite 1 mg Tablet] 1 mg PO DAILY 10/24/16 Lisinopril [Prinivil 10 mg Tablet] 10 mg PO DAILY 10/24/16 Allergies/Adverse Reactions: carisoprodol [From Soma] Allergy (Verified 10/23/16 12:22) Sulfa (Sulfonamide Antibiotics) Allergy (Verified 10/23/16 12:22) Review of Systems Constitutional: PRESENT: anorexia, fatigue, headache(s), weakness Eyes: ABSENT: visual disturbances Ears: ABSENT: hearing changes Cardiovascular: ABSENT: chest pain, dyspnea on exertion, edema, orthropnea, palpitations Respiratory: ABSENT: cough, hemoptysis Gastrointestinal: PRESENT: abdominal pain, bloating, hematemesis, nausea, vomiting Genitourinary: ABSENT: dysuria, hematuria Musculoskeletal: ABSENT: joint swelling Integumentary: ABSENT: rash, wounds Neurological: ABSENT: abnormal gait, abnormal speech, confusion, dizziness, focal weakness, syncope Psychiatric: PRESENT: anxiety Endocrine: ABSENT: cold intolerance, heat intolerance, polydipsia, polyuria Hematologic/Lymphatic: ABSENT: easy bleeding, easy bruising Physical Exam Vital Signs: Temp Pulse Resp BP Pulse Ox 100.2 F 116 H 16 142/77 H 92 10/24/16 20:02 10/24/16 20:02 10/24/16 20:02 10/24/16 20:02 10/24/16 20:02 Intake & Output 10/23/16 10/24/16 10/25/16 11:59 11:59 11:59 Intake Total 526 1260 Output Total 500 700 Balance 26 560 Weight 87.9 kg General appearance: PRESENT: cooperative, disheveled, mild distress Head exam: PRESENT: atraumatic, normocephalic Eye exam: PRESENT: conjunctiva pink, EOMI, PERRLA. ABSENT: scleral icterus Ear exam: PRESENT: normal external ear exam Mouth exam: PRESENT: dry mucosa, tongue midline Neck exam: ABSENT: carotid bruit, JVD, lymphadenopathy, thyromegaly Respiratory exam: PRESENT: clear to auscultation jason. ABSENT: rales, rhonchi, wheezes Cardiovascular exam: PRESENT: RRR. ABSENT: diastolic murmur, rubs, systolic murmur Pulses: PRESENT: normal dorsalis pedis pul Vascular exam: PRESENT: normal capillary refill GI/Abdominal exam: PRESENT: hyperactive bowel sounds, tenderness. ABSENT: ascites, diminished bowel sounds, distended, firm, guarding, hernia, mass Rectal exam: PRESENT: deferred Extremities exam: PRESENT: full ROM. ABSENT: calf tenderness, clubbing, pedal edema Neurological exam: PRESENT: alert, awake, oriented to person, oriented to place , oriented to time, oriented to situation, CN II-XII grossly intact. ABSENT: motor sensory deficit Psychiatric exam: PRESENT: anxious Skin exam: PRESENT: dry, intact, warm. ABSENT: cyanosis, rash Results Laboratory Results: 10/24/16 18:29 10/24/16 02:55 10/23/16 10/23/16 10/23/16 20:50 20:50 20:50 WBC 12.8 H RBC 3.62 L Hgb 11.9 L D Hct 33.9 L MCV 94 MCH 32.9 MCHC 35.1 RDW 15.0 H Plt Count 228 Seg Neutrophils % 64.8 Lymphocytes % 27.7 Monocytes % 6.6 Eosinophils % 0.6 Basophils % 0.3 Absolute Neutrophils 8.3 H Absolute Lymphocytes 3.5 Absolute Monocytes 0.8 Absolute Eosinophils 0.1 Absolute Basophils 0.0 Sodium 136.7 L Potassium 4.1 Chloride 94 L Carbon Dioxide 26 Anion Gap 17 BUN 7 Creatinine 0.90 Est GFR ( Amer) > 60 Est GFR (Non-Af Amer) > 60 Glucose 79 Calcium 7.6 L Phosphorus 3.5 Magnesium 0.9 L* Total Bilirubin AST ALT Alkaline Phosphatase Total Protein Albumin 10/24/16 10/24/16 10/24/16 02:55 02:55 08:55 WBC 7.8 8.3 RBC 3.25 L 3.68 L Hgb 10.6 L 11.8 L Hct 31.2 L 34.6 L MCV 96 94 MCH 32.7 32.0 MCHC 34.1 34.0 RDW 15.1 H 14.7 H Plt Count 152 189 Seg Neutrophils % 63.3 58.5 Lymphocytes % 29.3 33.5 Monocytes % 5.4 5.0 Eosinophils % 1.3 1.9 Basophils % 0.7 1.1 Absolute Neutrophils 5.0 4.9 Absolute Lymphocytes 2.3 2.8 Absolute Monocytes 0.4 0.4 Absolute Eosinophils 0.1 0.2 Absolute Basophils 0.1 0.1 Sodium 138.3 Potassium 4.1 Chloride 97 L Carbon Dioxide 28 Anion Gap 13 BUN 6 L Creatinine 0.89 Est GFR ( Amer) > 60 Est GFR (Non-Af Amer) > 60 Glucose 92 Calcium 7.3 L Phosphorus Magnesium Total Bilirubin 2.1 H AST 96 H ALT 50 Alkaline Phosphatase 178 H Total Protein 6.9 Albumin 3.6 10/24/16 10/24/16 18:29 18:29 WBC 9.8 RBC 3.52 L Hgb 11.6 L Hct 33.2 L MCV 94 MCH 32.9 MCHC 34.9 RDW 14.3 H Plt Count 173 Seg Neutrophils % 74.1 Lymphocytes % 20.7 Monocytes % 3.9 Eosinophils % 0.7 Basophils % 0.6 Absolute Neutrophils 7.2 Absolute Lymphocytes 2.0 Absolute Monocytes 0.4 Absolute Eosinophils 0.1 Absolute Basophils 0.1 Sodium Potassium Chloride Carbon Dioxide Anion Gap BUN Creatinine Est GFR ( Amer) Est GFR (Non-Af Amer) Glucose Calcium Phosphorus Magnesium 1.9 D Total Bilirubin AST ALT Alkaline Phosphatase Total Protein Albumin Impressions: Abdomen Ultrasound 10/23/16 13:51 IMPRESSION: FATTY LIVER. PANCREAS PARTIALLY OBSCURED. OTHERWISE NORMAL RIGHT UPPER QUADRANT ULTRASOUND. Chest X-Ray 10/23/16 16:07 IMPRESSION: NO ACUTE RADIOGRAPHIC FINDING IN THE CHEST. Abdomen/Pelvis CT 10/23/16 17:42 IMPRESSION: HEPATOMEGALY WITH DIFFUSE FATTY INFILTRATION OF THE LIVER. NO OTHER ACUTE OR SIGNIFICANT FINDINGS. Assessment & Plan - Diagnosis (1) Acidosis Is this a current diagnosis for this admission?: YesPlan: Starvation and alcoholic ketoacidosis, D5 half with potassium and reevaluation of chemistry, resume clear liquid diet DAVID, reevaluation with chemistry every 6 to verify improvement (2) Alcohol withdrawal Qualifiers: Complication of substance-induced condition: uncomplicated Qualified Code(s): F10.230 - Alcohol dependence with withdrawal, uncomplicated Is this a current diagnosis for this admission?: YesPlan: Thiamine and folate prior to D5, supportive measures with Ativan when necessary (3) Alcoholic gastritis Qualifiers: Chronicity: unspecified Gastritis bleeding: presence of bleeding unspecified Qualified Code(s): K29.20 - Alcoholic gastritis without bleeding Is this a current diagnosis for this admission?: YesPlan: IV Protonix consider GI consult, reevaluate CBC and obtain PT/INR (4) Anxiety and depression Is this a current diagnosis for this admission?: YesPlan: Benzodiazepine when necessary outpatient mental health referral (5) Substance abuse Is this a current diagnosis for this admission?: YesPlan: Symptomatic management outpatient mental health referral - Time Time Spent: 50 to 70 Minutes - Inpatient Certification Medical Necessity: Need Close Monitoring Due to Risk of Patient Decompensation
[2016-10-24] MEDS: CLONIDINE HCL 0.1 MG TABLET PO SCH (21:14)
[2016-10-25] MEDS: LORAZEPAM INJ 2 MG/1 ML VIAL IV PRN ×6 (00:11→20:47)
[2016-10-25] MEDS: HYDROMORPHONE HCL INJ/PF 2 MG/ML AMPULE IV PRN ×7 (00:11→21:35)
[2016-10-25] MEDS: HEPARIN SOD (PORCINE) 5,000 UNIT/ML 1 ML SYRINGE SUBCUT SCH ×3 (05:10→21:35)
[2016-10-25] MEDS: CLONIDINE HCL 0.1 MG TABLET PO SCH ×3 (05:10→21:35)
[2016-10-25] MEDS: NORMAL SALINE 100 ML with PANTOPRAZOLE SODIUM 80 MG IV PRN ×4 (05:11→14:29)
[2016-10-25] MEDS ORDERED: METHYLPREDNISOLONE INJ 125 MG/2 ML SDV IV SCH (06:00)
[2016-10-25 06:18] LABS: ANION GAP 14 (5-19); BLOOD UREA NITROGEN 5 mg/dL (7-20); CALCIUM 7.3 mg/dL (8.4-10.2); CARBON DIOXIDE 21 mmol/L (22-30); CHLORIDE 103 mmol/L (98-107); CREATININE RESULT 0.57 mg/dL (0.52-1.25); GLUCOSE 217 mg/dL (75-110); MAGNESIUM 1.5 mg/dL (1.6-2.3); PHOSPHORUS 3.2 mg/dL (2.5-4.5); SODIUM 137.6 mmol/L (137-145)
[2016-10-25] MEDS: SIMETHICONE 80 MG TAB.CHEW PO SCH ×4 (09:52→21:35)
[2016-10-25] MEDS: THIAMINE HCL 100 MG, FOLIC ACID 1 MG in NORMAL SALINE 50 ML IV SCH (09:53)
[2016-10-25] MEDS: DOCUSATE SODIUM 100 MG CAPSULE PO SCH ×2 (09:54→17:04)
--- NOTE | 2016-10-25 10:51 | PDOC PROGRESS REPORT ---
Subjective Progress Note for:: 10/25/16 Subjective:: Patient still has abdominal pain with some nausea. Has good bowel movement according to the staff. Denies chills or fever just time. Developed fever yesterday, has elbow pain and swelling, history of gout, steroid was given and swelling and pain improved. Physical Exam Vital Signs: Temp Pulse Resp BP Pulse Ox 98.0 F 79 17 119/74 98 10/25/16 07:36 10/25/16 07:36 10/25/16 07:36 10/25/16 07:36 10/25/16 07:36 Intake & Output 10/24/16 10/25/16 10/26/16 06:59 06:59 06:59 Intake Total 526 2580 Output Total 500 700 Balance 26 1880 Weight 87.9 kg 91.3 kg General appearance: PRESENT: mild distress - due to pain in abdomen Head exam: PRESENT: normocephalic Eye exam: PRESENT: EOMI Mouth exam: PRESENT: moist, neck supple Neck exam: ABSENT: JVD Respiratory exam: PRESENT: clear to auscultation jason. ABSENT: rhonchi, wheezes Cardiovascular exam: PRESENT: RRR. ABSENT: gallop GI/Abdominal exam: PRESENT: guarding - voluntary, tenderness - Diffusely Musculoskeletal exam: PRESENT: tenderness - Left elbow Neurological exam: PRESENT: alert, awake, oriented to situation Skin exam: PRESENT: dry, warm. ABSENT: cyanosis Results Laboratory Results: 10/24/16 18:29 10/25/16 05:30 10/24/16 10/24/16 10/25/16 18:29 18:29 05:30 WBC 9.8 RBC 3.52 L Hgb 11.6 L Hct 33.2 L MCV 94 MCH 32.9 MCHC 34.9 RDW 14.3 H Plt Count 173 Seg Neutrophils % 74.1 Lymphocytes % 20.7 Monocytes % 3.9 Eosinophils % 0.7 Basophils % 0.6 Absolute Neutrophils 7.2 Absolute Lymphocytes 2.0 Absolute Monocytes 0.4 Absolute Eosinophils 0.1 Absolute Basophils 0.1 Sodium 137.6 Potassium 4.0 Chloride 103 Carbon Dioxide 21 L Anion Gap 14 BUN 5 L Creatinine 0.57 Est GFR ( Amer) > 60 Est GFR (Non-Af Amer) > 60 Glucose 217 H Calcium 7.3 L Phosphorus 3.2 Magnesium 1.9 D 1.5 L Impressions: Abdomen Ultrasound 10/23/16 13:51 IMPRESSION: FATTY LIVER. PANCREAS PARTIALLY OBSCURED. OTHERWISE NORMAL RIGHT UPPER QUADRANT ULTRASOUND. Chest X-Ray 10/23/16 16:07 IMPRESSION: NO ACUTE RADIOGRAPHIC FINDING IN THE CHEST. Abdomen/Pelvis CT 10/23/16 17:42 IMPRESSION: HEPATOMEGALY WITH DIFFUSE FATTY INFILTRATION OF THE LIVER. NO OTHER ACUTE OR SIGNIFICANT FINDINGS. KUB X-Ray 10/25/16 06:00 IMPRESSION: NO RADIOGRAPHIC EVIDENCE FOR ACUTE ABDOMINAL DISEASE. Assessment & Plan - Diagnosis (1) Alcohol withdrawal Qualifiers: Complication of substance-induced condition: uncomplicated Qualified Code(s): F10.230 - Alcohol dependence with withdrawal, uncomplicated Is this a current diagnosis for this admission?: Yes (2) Alcoholic gastritis Qualifiers: Chronicity: unspecified Gastritis bleeding: presence of bleeding unspecified Qualified Code(s): K29.20 - Alcoholic gastritis without bleeding Is this a current diagnosis for this admission?: Yes (3) Chronic pancreatitis Qualifiers: Pancreatitis type: alcohol induced Qualified Code(s): K86.0 - Alcohol-induced chronic pancreatitis Is this a current diagnosis for this admission?: Yes (4) Fatty liver Is this a current diagnosis for this admission?: Yes (5) Polysubstance abuse Is this a current diagnosis for this admission?: Yes (6) Hypomagnesemia Is this a current diagnosis for this admission?: Yes (7) Essential hypertension Is this a current diagnosis for this admission?: Yes (8) Hyperlipidemia Qualifiers: Hyperlipidemia type: unspecified Qualified Code(s): E78.5 - Hyperlipidemia, unspecified Is this a current diagnosis for this admission?: Yes (9) History of hepatitis C Is this a current diagnosis for this admission?: Yes (10) Anxiety and depression Is this a current diagnosis for this admission?: Yes (11) Gout Qualifiers: Gout site: elbow Gout etiology: unspecified cause Laterality: left Is this a current diagnosis for this admission?: Yes - Time Time Spent with patient: 25-34 minutes - Continue IV fluids. Continue Ativan when necessary, increase Dilaudid, check lipase and amylase, check LFTs, consult gastroenterology for further evaluation and management. Give 1 more dose of steroid . Continue supportive care - Plan Summary Plan Summary: Continue hydration, consult gastroenterology for further evaluation and management, increase Dilaudid, given one dose of steroid for gout in his elbow. Continue when necessary Ativan. Check lipase and amylase and LFTs.
[2016-10-25] MEDS: MAGNESIUM SULFATE/D5W 100 ML IV SCH ×2 (11:06→12:08)
[2016-10-25] MEDS: NORMAL SALINE 1000 ML 1,000 ML IV PRN ×2 (11:09→22:33)
[2016-10-25] MEDS ORDERED: PREDNISONE 20 MG TABLET PO ONE (11:15)
[2016-10-25 11:26] LABS: ALANINE AMINOTRANSFERASE 42 U/L (21-72); ALBUMIN 3.2 g/dL (3.5-5.0); ALKALINE PHOSPHATASE 179 U/L (38-126); AMYLASE 33 U/L (30-110); ASPARTATE AMINO TRANSFERASE 70 U/L (17-59); BILIRUBIN,DIRECT 1.8 mg/dL (0.0-0.4); BILIRUBIN,TOTAL 2.5 mg/dL (0.2-1.3); LIPASE 194.7 U/L (23-300); TOTAL PROTEIN 6.5 g/dL (6.3-8.2)
[2016-10-25] MEDS ORDERED: ONDANSETRON HCL INJ/PF 4 MG/2 ML SDV IV PRN (12:40)
[2016-10-26] MEDS: HYDROMORPHONE HCL INJ/PF 2 MG/ML AMPULE IV PRN ×7 (01:01→20:48)
[2016-10-26] MEDS: LORAZEPAM INJ 2 MG/1 ML VIAL IV PRN ×5 (03:14→20:16)
[2016-10-26] MEDS: CLONIDINE HCL 0.1 MG TABLET PO SCH ×3 (05:34→21:48)
[2016-10-26] MEDS: HEPARIN SOD (PORCINE) 5,000 UNIT/ML 1 ML SYRINGE SUBCUT SCH ×3 (05:34→21:49)
[2016-10-26 07:30] LABS: ANION GAP 10 (5-19); BLOOD UREA NITROGEN 6 mg/dL (7-20); CALCIUM 7.4 mg/dL (8.4-10.2); CARBON DIOXIDE 25 mmol/L (22-30); CHLORIDE 105 mmol/L (98-107); CREATININE RESULT 0.57 mg/dL (0.52-1.25); GLUCOSE 107 mg/dL (75-110); LIPASE 149.9 U/L (23-300); MAGNESIUM 2.1 mg/dL (1.6-2.3); POTASSIUM 4.7 mmol/L (3.6-5.0); SODIUM 140.2 mmol/L (137-145)
[2016-10-26] MEDS: NORMAL SALINE 1000 ML 1,000 ML IV PRN ×2 (08:45→18:41)
[2016-10-26] MEDS: THIAMINE HCL 100 MG, FOLIC ACID 1 MG in NORMAL SALINE 50 ML IV SCH (10:17)
[2016-10-26] MEDS: SIMETHICONE 80 MG TAB.CHEW PO SCH ×4 (10:17→21:57)
[2016-10-26] MEDS: NORMAL SALINE 100 ML with PANTOPRAZOLE SODIUM 80 MG IV PRN ×6 (10:17→18:41)
[2016-10-26] MEDS: DOCUSATE SODIUM 100 MG CAPSULE PO SCH ×2 (10:22→19:39)
--- NOTE | 2016-10-26 10:29 | PDOC PROGRESS REPORT ---
Subjective Progress Note for:: 10/26/16 Subjective:: Abdominal Pain is less but still present. No reported temperature spikes, respiratory distress, chills nor fever. Elbow pain significantly better. Dilaudid IV helping relieve the pain. No shortness of breath. No reported confusion, tremors Physical Exam Vital Signs: Temp Pulse Resp BP Pulse Ox 97.8 F 74 20 138/90 H 99 10/26/16 07:45 10/26/16 07:45 10/26/16 07:45 10/26/16 07:45 10/26/16 07:45 Intake & Output 10/25/16 10/26/16 10/27/16 06:59 06:59 06:59 Intake Total 2580 3173 Output Total 700 200 Balance 1880 2973 Weight 91.3 kg 94.6 kg General appearance: PRESENT: no acute distress, cooperative Head exam: PRESENT: normocephalic Eye exam: PRESENT: conjunctiva pink, EOMI Mouth exam: PRESENT: moist, neck supple Neck exam: ABSENT: JVD Respiratory exam: PRESENT: clear to auscultation jason. ABSENT: rhonchi, wheezes Cardiovascular exam: PRESENT: RRR. ABSENT: gallop GI/Abdominal exam: PRESENT: soft, tenderness - Diffusely. ABSENT: rigid Extremities exam: ABSENT: pedal edema Neurological exam: PRESENT: alert, awake, oriented to situation Skin exam: PRESENT: dry, warm. ABSENT: cyanosis Results Laboratory Results: 10/24/16 18:29 10/26/16 06:18 10/25/16 10/26/16 05:30 06:18 Sodium 140.2 Potassium 4.7 Chloride 105 Carbon Dioxide 25 Anion Gap 10 BUN 6 L Creatinine 0.57 Est GFR ( Amer) > 60 Est GFR (Non-Af Amer) > 60 Glucose 107 Calcium 7.4 L Magnesium 2.1 Total Bilirubin 2.5 H AST 70 H ALT 42 Alkaline Phosphatase 179 H Total Protein 6.5 Albumin 3.2 L Amylase 33 Lipase 194.7 149.9 Impressions: Abdomen Ultrasound 10/23/16 13:51 IMPRESSION: FATTY LIVER. PANCREAS PARTIALLY OBSCURED. OTHERWISE NORMAL RIGHT UPPER QUADRANT ULTRASOUND. Chest X-Ray 10/23/16 16:07 IMPRESSION: NO ACUTE RADIOGRAPHIC FINDING IN THE CHEST. Abdomen/Pelvis CT 10/23/16 17:42 IMPRESSION: HEPATOMEGALY WITH DIFFUSE FATTY INFILTRATION OF THE LIVER. NO OTHER ACUTE OR SIGNIFICANT FINDINGS. KUB X-Ray 10/25/16 06:00 IMPRESSION: NO RADIOGRAPHIC EVIDENCE FOR ACUTE ABDOMINAL DISEASE. Assessment & Plan - Diagnosis (1) Alcohol withdrawal Qualifiers: Complication of substance-induced condition: uncomplicated Qualified Code(s): F10.230 - Alcohol dependence with withdrawal, uncomplicated Is this a current diagnosis for this admission?: Yes (2) Alcoholic gastritis Qualifiers: Chronicity: unspecified Gastritis bleeding: presence of bleeding unspecified Qualified Code(s): K29.20 - Alcoholic gastritis without bleeding Is this a current diagnosis for this admission?: Yes (3) Chronic pancreatitis Qualifiers: Pancreatitis type: alcohol induced Qualified Code(s): K86.0 - Alcohol-induced chronic pancreatitis Is this a current diagnosis for this admission?: Yes (4) Fatty liver Is this a current diagnosis for this admission?: Yes (5) Polysubstance abuse Is this a current diagnosis for this admission?: Yes (6) Hypomagnesemia Is this a current diagnosis for this admission?: Yes (7) Essential hypertension Is this a current diagnosis for this admission?: Yes (8) Hyperlipidemia Qualifiers: Hyperlipidemia type: unspecified Qualified Code(s): E78.5 - Hyperlipidemia, unspecified Is this a current diagnosis for this admission?: Yes (9) History of hepatitis C Is this a current diagnosis for this admission?: Yes (10) Anxiety and depression Is this a current diagnosis for this admission?: Yes (11) Gout Qualifiers: Gout site: elbow Gout etiology: unspecified cause Laterality: left Is this a current diagnosis for this admission?: Yes - Time Time Spent with patient: 15-24 minutes - Plan Summary Plan Summary: Continue pain management. For upper endoscopy today. Continue intravenous fluid. Decrease Ativan. Discontinue steroids . Continue other supportive care at this time.
[2016-10-26] MEDS ORDERED: NALOXONE HCL INJ/PF 0.4 MG/1 ML SDV ONE (14:46)
[2016-10-26] MEDS ORDERED: FLUMAZENIL INJ 0.5 MG/5 ML VIAL IV ONE (14:47)
[2016-10-26] MEDS ORDERED: FENTANYL CITRATE INJ/PF 100 MCG/2 ML AMPUL ONE (14:47)
[2016-10-26] MEDS ORDERED: GLUCAGON,HUMAN RECOMB 1 MG INJ ONE (14:47)
[2016-10-26] MEDS ORDERED: EPINEPHRINE INJ 1 MG/10 ML DISP.SYRIN ONE (14:47)
[2016-10-26] MEDS: MIDAZOLAM 2 MG/2 ML INJ ONE ×2 (18:52→18:55)
--- NOTE | 2016-10-26 19:11 | PDOC CONSULTATION ---
Consultation Consult Date: 10/25/16 History of Present Illness Admission Date/PCP: 10/23/16 19:55 History of Present Illness: This is a 31-year-old patient who was admitted with abdominal pain and vomiting. He has also been seeing small amount of blood in his vomitus. He vomited many times prior to being admitted but none in the hospital. He does have some epigastric pain and heartburn. He abuses alcohol heavily. His hemoglobin was 14.9 on admission but after hydration it is down to 11.8. Past Medical History Cardiac Medical History: Reports: Hyperlipidema, Hypertension Pulmonary Medical History: Reports: Bronchitis Neurological Medical History: Denies: Seizures GI Medical History: Reports: Hepatitis - Hepatitis-C, Other - Gastritis, alcoholic pancreatitis Musculoskeltal Medical History: Reports: Arthritis, Gout Psychiatric Medical History: Reports: Bipolar Disorder, Post Traumatic Stress Disorder, Substance Abuse, Tobacco Dependency Denies: Depression Past Surgical History Past Surgical History: Reports: Orthopedic Surgery - R hand Social History Smoking Status: Former Smoker Frequency of Alcohol Use: Heavy Hx Recreational Drug Use: Yes Drugs: Cocaine, Marijuana Hx Prescription Drug Abuse: No - Advance Directive Resuscitation Status: Full Code Family History Family History: CAD, CVA, Hyperlipidemia, Hypertension, Malignancy, Thyroid Disfunction Parental Family History Reviewed: No Children Family History Reviewed: NA Sibling(s) Family History Reviewed.: NA Medication/Allergy Home Medications: Clonidine HCl [Catapres 0.1 mg Tablet] 0.1 mg PO Q8 10/24/16 Folic Acid [Folvite 1 mg Tablet] 1 mg PO DAILY 10/24/16 Lisinopril [Prinivil 10 mg Tablet] 10 mg PO DAILY 10/24/16 Allergies/Adverse Reactions: carisoprodol [From Soma] Allergy (Verified 10/23/16 12:22) Sulfa (Sulfonamide Antibiotics) Allergy (Verified 10/23/16 12:22) Review of Systems All systems: reviewed and no additional remarkable complaints except as stated Physical Exam Vital Signs: Temp Pulse Resp BP Pulse Ox 98.0 F 90 12 125/88 H 96 10/26/16 15:21 10/26/16 19:05 10/26/16 19:05 10/26/16 19:05 10/26/16 19:05 Intake & Output 05/15/17 05/16/17 05/17/17 06:59 06:59 06:59 Intake Total 2580 3173 298 Output Total 700 200 Balance 1880 2973 298 Weight 91.3 kg 94.6 kg Exam: General: Patient is alert and looks well. HEENT: There is no pallor or jaundice. PERRLA. Oropharynx normal Respiratory: No chest deformity. No respiratory distress. Chest wall palpitation was unremarkable. Breath sounds were normal Cardiovascular: Heart sounds 1 and 2 normal with no murmurs. Abdominal: Not distended. Soft and nontender. Liver and spleen not palpable. No ascites demonstrated. Bowel sounds active. Rectal examination was deferred. Extremities: No edema Neurological: Alert and oriented x4. Grossly nonfocal. Normal speech Skin: No significant rash Psychological: Normal affect Results Laboratory Results: 10/24/16 18:29 10/26/16 06:18 10/26/16 06:18 Sodium 140.2 Potassium 4.7 Chloride 105 Carbon Dioxide 25 Anion Gap 10 BUN 6 L Creatinine 0.57 Est GFR ( Amer) > 60 Est GFR (Non-Af Amer) > 60 Glucose 107 Calcium 7.4 L Magnesium 2.1 Lipase 149.9 Impressions: Abdomen Ultrasound 10/23/16 13:51 IMPRESSION: FATTY LIVER. PANCREAS PARTIALLY OBSCURED. OTHERWISE NORMAL RIGHT UPPER QUADRANT ULTRASOUND. Chest X-Ray 10/23/16 16:07 IMPRESSION: NO ACUTE RADIOGRAPHIC FINDING IN THE CHEST. Abdomen/Pelvis CT 10/23/16 17:42 IMPRESSION: HEPATOMEGALY WITH DIFFUSE FATTY INFILTRATION OF THE LIVER. NO OTHER ACUTE OR SIGNIFICANT FINDINGS. KUB X-Ray 10/25/16 06:00 IMPRESSION: NO RADIOGRAPHIC EVIDENCE FOR ACUTE ABDOMINAL DISEASE. Assessment & Plan - Diagnosis (1) Hematemesis Is this a current diagnosis for this admission?: YesPlan: Differential diagnoses include esophagitis, gastric ulcers, or Paola-Fenton tear. He will undergo an EGD (2) Epigastric abdominal pain Is this a current diagnosis for this admission?: Yes (3) Fatty liver Is this a current diagnosis for this admission?: YesPlan: This is related to his alcoholism and weight (4) Nausea and vomiting Qualifiers: Vomiting type: unspecified Vomiting Intractability: non-intractable Qualified Code(s): R11.2 - Nausea with vomiting, unspecified
--- NOTE | 2016-10-26 19:14 | Operative Report ---
Operative Report DATE OF SURGERY: 10/26/16 Operative Report: Pre-op diagnosis: Hematemesis Post-op diagnosis: Grade C esophagitis Surgery: Esophagogastroduodenoscopy Medications: Versed 3mg Fentanyl 100mcg IV push Tissue removed: None Procedure: After informed consent obtained from patient, the throat was sprayed with Hurricane and conscious sedation was achieved. The upper endoscope was inserted into the esophagus under direct vision and advanced into the stomach. The duodenum was entered and examined to the second part. Endoscope was then slowly pulled out of the patient as the mucosa was examined into details. Patient tolerated procedure well. Findings Esophagus: Multiple long erosions noted in the distal 5 cm of the esophagus involving 50% of the circumference Z-line at: 36 cm Antrum: Normal Body: Normal Fundus: Normal Duodenum first part: Normal Duodenum second part: Normal Plan: Continue PPI twice a day for eight weeks and once a day thereafter OPERATION: .
[2016-10-26] MEDS ORDERED: NORMAL SALINE 100 ML with PANTOPRAZOLE SODIUM 80 MG IV PRN ×2 (20:01)
[2016-10-26] MEDS ORDERED: LORAZEPAM INJ 2 MG/1 ML VIAL IV PRN ×2 (23:27→23:28)
[2016-10-26] MEDS ORDERED: LORAZEPAM INJ 2 MG/1 ML VIAL ONE (23:34)
[2016-10-27] MEDS: NORMAL SALINE 1000 ML 1,000 ML IV PRN (01:43)
[2016-10-27] MEDS: HYDROMORPHONE HCL INJ/PF 2 MG/ML AMPULE IV PRN (02:37)
[2016-10-27] MEDS: HEPARIN SOD (PORCINE) 5,000 UNIT/ML 1 ML SYRINGE SUBCUT SCH (06:00)
[2016-10-27] MEDS: CLONIDINE HCL 0.1 MG TABLET PO SCH (06:00)
[2016-10-27] MEDS: THIAMINE HCL 100 MG, FOLIC ACID 1 MG in NORMAL SALINE 50 ML IV SCH (10:00)
[2016-10-27] MEDS: SIMETHICONE 80 MG TAB.CHEW PO SCH (10:00)
[2016-10-27] MEDS: DOCUSATE SODIUM 100 MG CAPSULE PO SCH (10:00)
--- NOTE | 2016-10-27 16:40 | DISCHARGE SUMMARY E ---
Discharge Summary NAME: RAMBO MARTINEZ : 1985 AGE: 31Y ADMITTED: 10/23/2016 DISCHARGED: 10/27/2016 FINAL DIAGNOSES: 1. ALCOHOL WITHDRAWAL. 2. EROSIVE GASTRITIS AND ESOPHAGITIS, SECONDARY TO ALCOHOL 3. CHRONIC PANCREATITIS. 4. FATTY INFILTRATION OF THE LIVER. 5. POLYSUBSTANCE ABUSE. 6. ESSENTIAL HYPERTENSION. 7. ANXIETY AND DEPRESSION. 8. GOUT. 9. HISTORY OF HYPERLIPIDEMIA AND HEPATITIS C. DISCHARGE INSTRUCTIONS: DIET: Low salt, low fat. ACTIVITIES: As tolerated. FOLLOWUP: 1. With primary care physician in 1 week. 2. Follow up with Dr. Shaver in 2 to 4 weeks. 3. Stop alcohol. DISCHARGE MEDICATIONS: Continue home medications includin. Catapres 0.1 mg p.o. every 8 hours. 2. Folvite 1 mg p.o. daily. 3. Prinivil 10 mg p.o. daily. Additional medications to take: 4. Simethicone 80 mg p.o. 4 times a day. 5. Prevacid 30 mg p.o. twice daily. 6. Oxycodone 10 mg p.o. every 6 hours as needed. 7. Thiamine 100 mg p.o. daily. REASON FOR ADMISSION: Abdominal pain. HISTORY OF PRESENT ILLNESS/SIGNIFICANT FINDINGS: The patient is a 31-year-old male with history of alcohol abuse, polysubstance abuse, alcoholic pancreatitis. Presents to the hospital because of 2-day history of abdominal pain and associated nausea and vomiting and unable to tolerate oral intake. He drinks a lot of alcohol. Patient reports vomiting a small quantity of blood. In the emergency room, the patient was found to be in metabolic acidosis and started on D5 half-normal saline, Protonix intravenously, and was referred for admission. For details, please refer to History and Physical examination performed by the admitting physician. HOSPITAL COURSE: The patient was admitted to [facility]. The patient was given antiemetics. Intravenous analgesics was likewise given for pain. Hemoglobin and hematocrit was monitored. Patient's hemoglobin, however, stabilized without any further drop. Workups include: CT of the abdomen and pelvis: Showing hepatomegaly and diffuse fatty infiltration of the liver. Chest x-ray did not reveal *------* infiltrate. Abdominal ultrasound also shows fatty liver. The patient was also started on Ativan for withdrawal symptoms. Patient was given supplemental thiamine, folic acid, and multivitamin. Eventually, the patient was referred to gastroenterology for further evaluation and management. The patient underwent upper endoscopy showing grade C esophagitis and multiple erosions in the esophagus as well. Twice a day proton pump inhibitor was recommended for 8 weeks and subsequently once a day thereafter. The patient was advised to stop alcohol. Patient was advised about the treatment plan and he understood. The rest of the hospital stay is unremarkable. Patient's course was noted for painful elbow on the left of which he was given steroids for his gout and the pain and discomfort resolved. The rest of the hospital stay is unremarkable. Patient wanted to go home and to continue treatment on an outpatient basis. He was advised to stop alcohol and stop recreational drugs as well. EXAMINATION ON DISCHARGE: GENERAL: Patient is awake, alert, and oriented to 3 spheres. There are no tremors. VITAL SIGNS: Blood pressure of 124/81, pulse of 80, respirations of 20. The patient is afebrile. O2 saturation on room 98%. NEUROLOGY: No asterixis or tremors were noted. LUNGS: Lung sounds are clear. HEART: Is regular with no gallops. ABDOMEN: Is soft. Bowel sounds slightly hyperactive. EXTREMITIES: Lower extremities nonedematous. Mucosae and nail beds with no cyanosis. DICTATING PHYSICIAN: IZAIAH WEAVER M.D. [id number] [facility]#: [id number] ID: [id number] JOB#: [id number] ACCT: [id number] cc:Danielle MALDONADO M.D. >
[2016-10-27 21:17] VITALS: BP 124/81
[2016-10-28] MEDS ORDERED: LANSOPRAZOLE 30 MG TAB.RAP.DR PO SCH (08:00)
== END 2016-10-27 13:55 | disposition home or self-care (01) | DRG 381 ==
LOC: ER 12:20 → EH 19:50 → UNDOADMIN 19:50 → EH 19:55 → 3S 23:20
PROVIDERS: ADMIT Internal Medicine; ATTEND Internal Medicine
PROC: 3E0F73Z Introduction of Anti-inflammatory into Respiratory Tract, Via Natural or Artificial Opening (ICD-10-PCS; 2016-10-24)
PROC: 0DJ08ZZ Inspection of Upper Intestinal Tract, Via Natural or Artificial Opening Endoscopic (ICD-10-PCS; principal; 2016-10-25)
DX: K22.10 Ulcer of esophagus without bleeding (principal); E87.2 Acidosis; F10.239 Alcohol dependence with withdrawal, unspecified; K86.0 Alcohol-induced chronic pancreatitis; K29.20 Alcoholic gastritis without bleeding; F14.10 Cocaine abuse, uncomplicated; F12.10 Cannabis abuse, uncomplicated; K70.0 Alcoholic fatty liver; B19.20 Unspecified viral hepatitis C without hepatic coma; E78.5 Hyperlipidemia, unspecified; E83.42 Hypomagnesemia; K92.0 Hematemesis; M10.022 Idiopathic gout, left elbow; I10 Essential (primary) hypertension; F41.9 Anxiety disorder, unspecified; F43.10 Post-traumatic stress disorder, unspecified; Z87.891 Personal history of nicotine dependence; F31.9 Bipolar disorder, unspecified; Z82.49 Family history of ischemic heart disease and other diseases of the circulatory system; Z80.9 Family history of malignant neoplasm, unspecified; Z88.2 Allergy status to sulfonamides; Z88.8 Allergy status to other drugs, medicaments and biological substances; Z86.73 Personal history of transient ischemic attack (TIA), and cerebral infarction without residual deficits
CPT/HCPCS: 36415; 43235; 71010; 74000; 74177; 76705; 80048; 80053; 80076; 80307; 81001; 82010; 82150; 82272; 82550; 82803; 83605; 83690; 83735; 84100; 85025; 85610; 87040; 87086; 96361; 96365; 96366; 96368; 96375; 96376; 99291; J0171; J1170; J1610; J1644; J2060; J2250; J2270; J2310; J2405; J2543; J2930; J3010; J3360; J3370; J3411; J3475; J3490; J7030; J7512; S0164

== ENCOUNTER 2016-12-15 18:21 | Emergency (ER) | payer SELFPAY ==
--- NOTE | 2016-12-15 18:34 | ER Document Report ---
ED Medical Screen (RME) - General Chief Complaint: S/S of Possible Stroke Stated Complaint: STROKE LIKE SYMPTOMS Time Seen by Provider: 12/15/16 18:25 Notes: This 31-year-old male patient with a long history of alcohol abuse, multiple substance abuse including cocaine, and hepatitis C comes emergency room complaining of onset about 6 PM tonight of right facial weakness. He is extremely intoxicated at this time. Holding a rag to his right face. He tries to talk with his teeth clenched claim he cannot open his mouth. He tries to pull down on his lower teeth unsuccessfully. Occasionally he slips and allows his teeth to open. He also states he cannot keep his right eye open. He reports he has numbness to the fingers on the right hand and his right foot feels funny. He is quite emotional. He is difficult to evaluate and tell if he really does have any facial weakness. He is able to wrinkle his forehead and able to clench both eyes closed tightly. I have greeted and performed a rapid initial assessment of this patient. A comprehensive ED assessment and evaluation of the patient, analysis of test results and completion of the medical decision making process will be conducted by additional ED providers. TRAVEL OUTSIDE OF THE [place] IN LAST 30 DAYS: No - Related Data Allergies/Adverse Reactions: carisoprodol [From Soma] Allergy (Verified 10/23/16 12:22) Sulfa (Sulfonamide Antibiotics) Allergy (Verified 10/23/16 12:22) Past Medical History - Past Medical History Cardiac Medical History: Reports: Hx Hypercholesterolemia, Hx Hypertension Pulmonary Medical History: Reports: Hx Bronchitis Neurological Medical History: Reports: Hx Cerebrovascular Accident - States he has had a TIA. Denies: Hx Seizures Renal/ Medical History: Denies: Hx Peritoneal Dialysis GI Medical History: Reports: Hx Gastritis, Hx Hepatitis - Hepatitis-C, Hx Ulcer , Hx Endoscopy Musculoskeltal Medical History: Reports Hx Arthritis, Reports Hx Gout, Reports Hx Musculoskeletal Deformity, Reports Hx Musculoskeletal Trauma Psychiatric Medical History: Reports: Hx Anxiety, Hx Bipolar Disorder, Hx Post Traumatic Stress Disorder Denies: Hx Depression Traumatic Medical History: Reports: Hx Fractures - Right hand Infectious Medical History: Reports: Hx Hepatitis - Hepatitis-C Past Surgical History: Reports: Hx Orthopedic Surgery - R hand - Immunizations Immunizations up to date: Yes Hx Diphtheria, Pertussis, Tetanus Vaccination: Yes
--- NOTE | 2016-12-15 18:56 | RADIOLOGY REPORT (SQ) ---
EXAM DESCRIPTION: CT HEAD WITHOUT COMPLETED DATE/TIME: 12/15/2016 6:42 pm REASON FOR STUDY: right facial weakness x 30 minutes COMPARISON: 01/13/2016 TECHNIQUE: Axial images acquired through the brain without intravenous contrast. Images reviewed wi th bone, brain and subdural windows. Images stored on PACS. All CT scanners at this facility use dose modulation, iterative reconstruction, and/or weight based d osing when appropriate to reduce radiation dose to as low as reasonably achievable (ALARA). [facility]: Dose Right [facility]: CareDose [facility]: Dose Right [facility]: Teradose 4D [facility]: Youku RADIATION DOSE: 64.61 mGy. LIMITATIONS: None. FINDINGS: VENTRICLES: Normal size and contour. CEREBRUM: No masses. No hemorrhage. No midline shift. Normal thao/white matter differentiation. N o evidence for acute infarction. CEREBELLUM: No masses. No hemorrhage. No alteration of density. No evidence for acute infarction. EXTRAAXIAL SPACES: No fluid collections. No masses. ORBITS AND GLOBE: No intra- or extraconal masses. Normal contour of globe without masses. CALVARIUM: No fracture. PARANASAL SINUSES: No fluid or mucosal thickening. SOFT TISSUES: No mass or hematoma. OTHER: No other significant finding. IMPRESSION: No acute intracranial findings. TECHNICAL DOCUMENTATION: JOB ID: [id number] Quality ID # [id number]: Final reports with documentation of one or more dose reduction techniques (e.g., Au tomated exposure control, adjustment of the mA and/or kV according to patient size, use of iterative reconstruction technique) 2010 [employer]- All Rights Reserved
[2016-12-15 19:07] LABS: ABSOLUTE BASOPHILS # (AUTO) 0.1 10^3/uL (0.0-0.2); ABSOLUTE EOSINOPHILS # (AUTO) 0.1 10^3/uL (0.0-0.6); ABSOLUTE LYMPHOCYTES (AUTO) 4.6 10^3/uL (0.5-4.7); ABSOLUTE MONOCYTES (AUTO) 0.4 10^3/uL (0.1-1.4); ABSOLUTE NEUT (AUTO) 4.2 10^3/uL (1.7-8.2); BASOPHILS % (AUTO) 0.9 % (0-2); EOSINOPHILS % (AUTO) 0.7 % (0-6); HEMATOCRIT 42.3 % (37.9-51.0); HEMOGLOBIN 13.9 g/dL (13.5-17.0); HGB HCT DIFFERENCE -0.6; LYMPHOCYTES % (AUTO) 48.8 % (13-45); MEAN CORPUSCULAR HEMOGLOBIN 31.9 pg (27.0-33.4); MEAN CORPUSCULAR HGB CONC 32.9 g/dL (32.0-36.0); MEAN CORPUSCULAR VOLUME 97 fl (80-97); MONOCYTES % (AUTO) 4.6 % (3-13); RED BLOOD COUNT 4.36 10^6/uL (4.35-5.55); RED CELL DISTRIBUTION WIDTH 14.7 % (11.5-14.0); WHITE BLOOD COUNT 9.3 10^3/uL (4.0-10.5)
--- NOTE | 2016-12-15 19:17 | ER Document Report ---
ED Neuro Symptoms/Deficit - General Chief Complaint: S/S of Possible Stroke Stated Complaint: STROKE LIKE SYMPTOMS Time Seen by Provider: 12/15/16 18:25 Mode of Arrival: Ambulatory Information source: Patient TRAVEL OUTSIDE OF THE [place] IN LAST 30 DAYS: No - HPI Patient complains to provider of: Paresthesia, Other - MUSCLE TIGHTNESS R. FACE & JAW Onset: This afternoon - AWOKE FROM NAP WITH SXS., UNSURE OF PRECISE TIME OF ONSET. Awoke with symptoms: Yes Symptoms are: Constant, Noted on awakening Duration: Continues in ED Quality of pain: No pain Severity: Moderate Context: Other - "TRYING TO STOP DRINKING" Loss of consciousness: No loss of consciousness Was STROKE ALERT Called: Yes Baseline Cognitive: Alert, oriented X 3 Baseline Gait: Walks w/o assistance Alert To: Name/Voice Patient Orientation: Person, Place, Time, Events Altered sensation: R facial Associated symptoms: None Similar symptoms previously: Yes - SAYS HE HAD "MINI-STROKE" 1 YEAR AGO. Recently seen / treated by doctor: No - Related Data Allergies/Adverse Reactions: carisoprodol [From Soma] Allergy (Verified 12/16/16 18:51) Sulfa (Sulfonamide Antibiotics) Allergy (Verified 12/16/16 18:51) Past Medical History - General Information source: Patient - Social History Smoking Status: Unknown if Ever Smoked Chew tobacco use (# tins/day): No Frequency of alcohol use: Heavy Drug Abuse: None - DENIES Lives with: Friend Family History: CAD, CVA, Hyperlipidemia, Hypertension, Malignancy, Thyroid Disfunction Patient has suicidal ideation: No Patient has homicidal ideation: No - Past Medical History Cardiac Medical History: Reports: Hx Hypercholesterolemia, Hx Hypertension Pulmonary Medical History: Reports: Hx Bronchitis Neurological Medical History: Reports: Hx Cerebrovascular Accident - States he has had a TIA. Denies: Hx Seizures Renal/ Medical History: Denies: Hx Peritoneal Dialysis GI Medical History: Reports: Hx Gastritis, Hx Hepatitis - Hepatitis C, Hx Ulcer , Hx Endoscopy Musculoskeltal Medical History: Reports Hx Arthritis, Reports Hx Gout, Reports Hx Musculoskeletal Deformity, Reports Hx Musculoskeletal Trauma Psychiatric Medical History: Reports: Hx Anxiety, Hx Bipolar Disorder, Hx Post Traumatic Stress Disorder Denies: Hx Depression Traumatic Medical History: Reports: Hx Fractures - Right hand Infectious Medical History: Reports: Hx Hepatitis - Hepatitis-C Past Surgical History: Reports: Hx Orthopedic Surgery - R hand - Immunizations Immunizations up to date: Yes Hx Diphtheria, Pertussis, Tetanus Vaccination: Yes Review of Systems - Review of Systems -: Yes ROS unobtainable due to patient's medical condition Constitutional: No symptoms reported. denies: Chills, Fever EENT: No symptoms reported Cardiovascular: No symptoms reported. denies: Chest pain Respiratory: No symptoms reported. denies: Short of breath Gastrointestinal: No symptoms reported Genitourinary: No symptoms reported Musculoskeletal: No symptoms reported Skin: No symptoms reported Neurological/Psychological: See HPI Physical Exam - Vital signs Vitals: Pulse Resp BP Pulse Ox 130 H 20 132/95 H 96 12/15/16 18:58 12/15/16 18:58 12/15/16 18:58 12/15/16 18:58 Interpretation: Hypertensive, Tachycardic. No: Hypoxic, Tachypneic - General General appearance: Anxious, Other - tearful In distress: None - HEENT Head: Normocephalic Eyes: Normal Conjunctiva: Normal Cornea: Normal Extraocular movements intact: Yes Pupils: PERRL Ears: Normal Nasal: Normal Mouth/Lips: Normal Mucous membranes: Normal, Other - SMELLS STRONGLY OF ETOH Pharynx: Normal Neck: Normal - Respiratory Respiratory status: No respiratory distress Breath sounds: Normal - Cardiovascular Rhythm: Regular, Tachycardia Heart sounds: Normal auscultation Murmur: No - Abdominal Inspection: Normal Distension: No distension Bowel sounds: Hypoactive - Back Back: Normal - Extremities General upper extremity: Normal inspection General lower extremity: Normal inspection. No: Edema - Neurological Neuro grossly intact: No - POORLY COOPERATIVE WITH EXAM Cognition: Normal Orientation: AAOx4 Srikanth Coma Scale Eye Opening: Spontaneous Srikanth Coma Scale Verbal: Oriented Srikanth Coma Scale Motor: Obeys Commands Srikanth Coma Scale Total: 15 Cranial nerves: No: Facial palsy, Gaze palsy, Tongue deviation Cerebellar coordination: Other - UNABLE (ORUNWILLING) TO COOPERATE W/ TESTING Motor strength normal: MANUELAE, CARMEN Additional motor exam normals: Equal manager paper - Psychological Associated symptoms: Agitated, Anxious - Skin Skin Temperature: Warm Skin Moisture: Dry Skin Color: Normal Skin Turgor: Elastic Course - Re-evaluation Re-evalutation: 12/15/16 23:55 Patient complains he is "sick, tired, achy". He appears much more relaxed and cooperative. On reexamination, I can detect no focal neurologic deficits. The patient was counseled extensively regarding his chronic alcoholism and the danger this poses. He was told that continuation of his alcoholic behavior will certainly lead to liver failure and in the near future. He is strongly admonished to seek detox/rehab treatment tomorrow, without delay. Patient verbalizes understanding. - Vital Signs Vital signs: Temp Pulse Resp BP Pulse Ox 130 H 20 132/95 H 96 12/15/16 18:58 12/15/16 18:58 12/15/16 18:58 12/15/16 18:58 - Laboratory Result Diagrams: 12/15/16 18:50 12/15/16 18:50 - EKG Interpretation by Me EKG shows normal: Sinus rhythm, Margaret, Intervals, QRS Complexes, ST-T Waves Rate: Tachycardia ED Alteplase Inc/Exc Criteria - Inclusion Criteria: 1: Patient presented to ED within 3 hours of acute ischemic stroke symptom onset ? -: No - UNABLE TO DETERMINE TME OF ONSET 2: Did baseline CT exclude intracranial hemorrhage and/or other risk factors? -: Yes 3: Is the age of the patient 18 years of age or greater? -: Yes : If any of the above questions are answered "NO" then stop, patient is not a candidate for Alteplase, : If all of the above questions are answered "YES" then continue with Exclusion Criteria. - Exclusion Criteria: 1: Is there evidence of intracranial hemorrhage on baseline CT? 2: Is there suspicion of subarachnoid hemorrhage (even if CT negative)? 3: Is there a history of serious head trauma, recent previous stroke or MA within 3 months? 4: Does the patient have a clinical presentation consistent with MA or post-MA pericarditis? 5: Is there history of intracranial hemorrhage? 6: On repeated measurement is Systolic BP greater than 185mmHg or Diastolic BP greater that 110 mmHg and is aggressive treatment needed to reduce blood pressure to these limits (e.g. constant infusion of an anti-hypertensive)? 7: Did the patient awake with stroke symptoms? 8: Has the patient had a lumbar puncture or an arterial puncture at a non- compressile site within 7 days? 9: With in the last 14 days did the patient have surgery or major trauma? 10: Is the patient or less than 2 weeks? 11: Was there any active bleeding or acute trauma? 12: Does the patient have intracranial neoplasm, arteriovenous malformation or aneurysm? 13: Does the patient have abnormal glucose (less than 50 or greater than 400mg/ dl)? Record glucose in Comment. 14: Patient has rapidly improving symptoms at the time Alteplase is to be Administered. 15: Does the patient have any risks for bleeding, including but not limited to: a.: Current use of Coumadin with PT greater than 15 seconds or INR greater than 1.7. b.: Current use of Pradaxa (Dabigatran). c.: Heparin administereed within the past 48 hours and PTT elevated. d.: Platelet count less than 100,000/mm. e.: Major surgery or serious trauma within 14 days. f.: Gastrointestinal or gynecological urinary bleeding within 14 days. g.: Myocardial Infarction (MA) within 3 months. : If the answer to any of the above questions is "YES" then stop, the patient is not a candidate for Alteplase. : If the answer to all of the above questions is "NO" then the patient may be eligible for the Administration of Alteplase. : If the patient is noted to have seizure activity at onset of Stroke symptoms; Consult Neurologist for further evaluation. - The patient is: -: Included and is eligible to receive Alteplase. *Initiate bed placement at higher level of care* Reviewd risks & benefits of thrombolytic therapy: I have reviewed the risks and benefits of thrombolytic therapy with the patient and/or his/her family. -: Excluded and not eligible to receive Alteplase for the above exclusions. -: Excluded and not eligible to receive Alteplase for other reasons (specify in comments): - Diagnosis of TIA: -: Patient presented with transient symptoms that are now resolved and no other neurologic findings are currently present. List symptoms in comments. -: Patient is NOT a candidate for tPA. -: ____(put name in comment) has been consulted for admission and continued evaluation of risk factor assessment. Discharge - Discharge Clinical Impression: Alcohol abuse with intoxication, History of hepatitis C virus infection Condition: Stable Disposition: HOME, SELF-CARE Instructions: Chronic Alcoholism ([facility]), Acute Alcohol Intoxication ([facility]), Alcoholic Hepatitis ([facility]) Additional Instructions: STOP DRINKING ALCOHOL. YOU WILL LIKELY KILL YOURSELF IN THE VERY NEAR FUTURE IF YOU DON'T STOP DRINKING. TOMORROW MORNING, FOLLOW UP WITH EITHER [facility] OR [facility] Referrals: [facility] [Outside] - Follow up as needed [facility] [Outside] - Follow up as needed
[2016-12-15 19:19] LABS: ALANINE AMINOTRANSFERASE 82 U/L (21-72); ALBUMIN 4.5 g/dL (3.5-5.0); ALCOHOL 240 mg/dL (NONE DETECTED); ALKALINE PHOSPHATASE 292 U/L (38-126); ASPARTATE AMINO TRANSFERASE 401 U/L (17-59); BILIRUBIN,DIRECT 1.4 mg/dL (0.0-0.4); BILIRUBIN,TOTAL 1.9 mg/dL (0.2-1.3); BLOOD UREA NITROGEN < 2 mg/dL (7-20); CALCIUM 9.1 mg/dL (8.4-10.2); CHLORIDE 101 mmol/L (98-107); CREATININE RESULT 0.64 mg/dL (0.52-1.25); GLUCOSE 167 mg/dL (75-110); TOTAL PROTEIN 9.4 g/dL (6.3-8.2)
[2016-12-15 19:26] LABS: ANION GAP 25 (5-19); CARBON DIOXIDE 21 mmol/L (22-30); POTASSIUM 3.7 mmol/L (3.6-5.0); SODIUM 147.3 mmol/L (137-145)
[2016-12-15] MEDS ORDERED: LORAZEPAM INJ 2 MG/1 ML VIAL IV ONE ×2 (19:34→21:15)
--- NOTE | 2016-12-15 20:32 | EKG REPORT ---
SEVERITY:- OTHERWISE NORMAL ECG - SINUS TACHYCARDIA : Confirmed by: Rory Valadez MD 15-Dec-2016 20:31:43
[2016-12-15] MEDS ORDERED: DIPHENHYDRAMINE HCL 50 MG/ML VIAL IV ONE (21:08)
[2016-12-15] MEDS ORDERED: ONDANSETRON HCL INJ/PF 4 MG/2 ML SDV IV ONE (21:08)
[2016-12-15] MEDS ORDERED: NORMAL SALINE 1000 ML 1,000 ML IV ONE (21:09)
[2016-12-16] MEDS ORDERED: CLONIDINE HCL 0.2 MG TABLET PO ONE (00:04)
[2016-12-16] MEDS ORDERED: ONDANSETRON HCL INJ/PF 4 MG/2 ML SDV IV ONE (00:04)
[2016-12-16 00:23] VITALS: BP 139/93
== END 2016-12-16 00:23 | disposition home or self-care (01) ==
LOC: ER 18:21
DX: F10.129 Alcohol abuse with intoxication, unspecified (principal); R20.0 Anesthesia of skin; M79.1 Myalgia; I10 Essential (primary) hypertension; E78.00 Pure hypercholesterolemia, unspecified; Z86.19 Personal history of other infectious and parasitic diseases; Z86.73 Personal history of transient ischemic attack (TIA), and cerebral infarction without residual deficits; Z88.2 Allergy status to sulfonamides
CPT/HCPCS: 93005; 96376; 99284; 96361; 96374; 96375; 36415; 80307; 83735; 85025; 80053; 70450; 93010; J1200; J2060; J2405 ×2; J7030

== ENCOUNTER 2016-12-16 18:50 | Emergency (ER) | payer SELFPAY ==
--- NOTE | 2016-12-16 19:51 | ER Document Report ---
ED Medical Screen (RME) - General Chief Complaint: Jaw Pain Stated Complaint: MOUTH INJURY Time Seen by Provider: 12/16/16 19:42 Notes: Uncertain exactly why the patient is here tonight. He says he was here yesterday. He has a history of alcohol intoxication and alcohol abuse. Will not speak and indicates he has pain in his mouth and jaw, but does not indicate that he has had any injury or trauma. He wants to write everything down. I do not know if he might have dislocation of his jaw, although I doubt it. Patient will not verbally answer my questions. Patient says he feels like he is going into withdrawal now. Will treat with 1 mg of Ativan and 50 mg of Vistaril. TRAVEL OUTSIDE OF THE [place] IN LAST 30 DAYS: No - Related Data Allergies/Adverse Reactions: carisoprodol [From Headplay] Allergy (Verified 12/16/16 18:51) Sulfa (Sulfonamide Antibiotics) Allergy (Verified 12/16/16 18:51) Past Medical History - Social History Chew tobacco use (# tins/day): No Frequency of alcohol use: Heavy Drug Abuse: Marijuana - Past Medical History Cardiac Medical History: Reports: Hx Hypercholesterolemia, Hx Hypertension Pulmonary Medical History: Reports: Hx Bronchitis Neurological Medical History: Reports: Hx Cerebrovascular Accident - States he has had a TIA. Denies: Hx Seizures Renal/ Medical History: Denies: Hx Peritoneal Dialysis GI Medical History: Reports: Hx Gastritis, Hx Hepatitis - Hepatitis-C, Hx Ulcer , Hx Endoscopy Musculoskeltal Medical History: Reports Hx Arthritis, Reports Hx Gout, Reports Hx Musculoskeletal Deformity, Reports Hx Musculoskeletal Trauma Psychiatric Medical History: Reports: Hx Anxiety, Hx Bipolar Disorder, Hx Post Traumatic Stress Disorder Denies: Hx Depression Traumatic Medical History: Reports: Hx Fractures - Right hand Infectious Medical History: Reports: Hx Hepatitis - Hepatitis-C Past Surgical History: Reports: Hx Orthopedic Surgery - R hand - Immunizations Immunizations up to date: Yes Hx Diphtheria, Pertussis, Tetanus Vaccination: Yes Physical Exam - Vital signs Vitals: Pulse Resp BP Pulse Ox 130 H 22 H 151/90 H 97 12/16/16 18:51 12/16/16 18:51 12/16/16 18:51 12/16/16 18:51 Course - Vital Signs Vital signs: Temp Pulse Resp BP Pulse Ox 130 H 22 H 151/90 H 97 12/16/16 18:51 12/16/16 18:51 12/16/16 18:51 12/16/16 18:51 - Laboratory Result Diagrams: 12/16/16 19:45 12/16/16 19:45
[2016-12-16 20:15] LABS: ABSOLUTE BASOPHILS # (AUTO) 0.1 10^3/uL (0.0-0.2); ABSOLUTE EOSINOPHILS # (AUTO) 0.1 10^3/uL (0.0-0.6); ABSOLUTE LYMPHOCYTES (AUTO) 3.3 10^3/uL (0.5-4.7); ABSOLUTE MONOCYTES (AUTO) 0.5 10^3/uL (0.1-1.4); ABSOLUTE NEUT (AUTO) 3.7 10^3/uL (1.7-8.2); BASOPHILS % (AUTO) 0.9 % (0-2); EOSINOPHILS % (AUTO) 1.6 % (0-6); HEMATOCRIT 38.5 % (37.9-51.0); HEMOGLOBIN 12.8 g/dL (13.5-17.0); HGB HCT DIFFERENCE -0.1; LYMPHOCYTES % (AUTO) 43.7 % (13-45); MEAN CORPUSCULAR HEMOGLOBIN 31.7 pg (27.0-33.4); MEAN CORPUSCULAR HGB CONC 33.1 g/dL (32.0-36.0); MEAN CORPUSCULAR VOLUME 96 fl (80-97); RED BLOOD COUNT 4.03 10^6/uL (4.35-5.55); RED CELL DISTRIBUTION WIDTH 14.1 % (11.5-14.0); SEGMENTED NEUTROPHILS % (AUTO) 47.8 % (42-78); WHITE BLOOD COUNT 7.6 10^3/uL (4.0-10.5)
[2016-12-16 20:18] LABS: APPEARANCE,URINE CLEAR; BILIRUBIN,URINE NEGATIVE (NEGATIVE); GLUCOSE, URINE NEGATIVE (NEGATIVE); KETONES,URINE NEGATIVE (NEGATIVE); LEUKOCYTE ESTERASE,URINE NEGATIVE (NEGATIVE); NITRITE,URINE NEGATIVE (NEGATIVE); PROTEIN,URINE NEGATIVE (NEGATIVE); URINE SPECIFIC GRAVITY 1.002; UROBILINOGEN,URINE NEGATIVE mg/dL (<2.0)
[2016-12-16] MEDS ORDERED: HYDROXYZINE PAMOATE 50 MG CAPSULE PO ONE ×2 (20:20→20:45)
[2016-12-16] MEDS ORDERED: LORAZEPAM 1 MG TABLET PO ONE ×2 (20:20→20:45)
--- NOTE | 2016-12-16 20:22 | RADIOLOGY REPORT (SQ) ---
EXAM DESCRIPTION: MANDIBLE 4 VIEWS OR MORE COMPLETED DATE/TIME: 12/16/2016 8:12 pm REASON FOR STUDY: Will not open mouth,? Dislocation COMPARISON: None. NUMBER OF VIEWS: Four view. TECHNIQUE: Images of the mandible acquired. AP, Elida's, angled right, angled left mandible images. LIMITATIONS: None. FINDINGS: MANDIBLE: No acute fracture. No disruption of the right or left temporomandibular joints. ORBITS: No fracture. No foreign body. SINUSES: No mucosal thickening. No air fluid levels. FACIAL BONES: No fracture. OTHER: Piercings are in place overlying the mandible. IMPRESSION: NO ACUTE FRACTURE OR MALALIGNMENT. TECHNICAL DOCUMENTATION: JOB ID: [id number] [employer]- All Rights Reserved
[2016-12-16 20:32] LABS: ALANINE AMINOTRANSFERASE 67 U/L (21-72); ALBUMIN 4.3 g/dL (3.5-5.0); ALCOHOL 164 mg/dL (NONE DETECTED); ALKALINE PHOSPHATASE 270 U/L (38-126); ASPARTATE AMINO TRANSFERASE 254 U/L (17-59); BILIRUBIN,DIRECT 1.5 mg/dL (0.0-0.4); BILIRUBIN,TOTAL 2.1 mg/dL (0.2-1.3); CALCIUM 8.2 mg/dL (8.4-10.2); CARBON DIOXIDE 24 mmol/L (22-30); CHLORIDE 98 mmol/L (98-107); CREATININE RESULT 0.66 mg/dL (0.52-1.25); GLUCOSE 112 mg/dL (75-110); POTASSIUM 3.6 mmol/L (3.6-5.0); TOTAL PROTEIN 8.5 g/dL (6.3-8.2)
[2016-12-16 20:33] LABS: BLOOD UREA NITROGEN < 2 mg/dL (7-20)
[2016-12-16 20:40] LABS: SODIUM 143.3 mmol/L (137-145)
[2016-12-16 20:43] LABS: ANION GAP 21 (5-19)
[2016-12-16] MEDS ORDERED: DIAZEPAM INJ 10 MG/2 ML DISP.SYRIN IM ONE (22:06)
[2016-12-16] MEDS ORDERED: DIAZEPAM INJ 10 MG/2 ML DISP.SYRIN ONE (22:38)
--- NOTE | 2016-12-16 23:05 | ER Document Report ---
ED General - General Chief Complaint: Jaw Pain Stated Complaint: MOUTH INJURY Time Seen by Provider: 12/16/16 19:42 Notes: Patient is a 31-year-old male who presents with complaint of his jaw being locked shut. He was seen here last night for the same thing was eventually discharged. He says his jaw still locked and therefore is come back to the ER. He has a known history of alcohol abuse. He comes here frequently due to complications from alcohol abuse. Patient denies any recent vomiting. Patient denies any focal weakness or numbness other than the jaw cramp. Patient does admit to drinking more alcohol. He says he is on a waiting list for a alcohol rehabilitation center. TRAVEL OUTSIDE OF THE [place] IN LAST 30 DAYS: No - Related Data Allergies/Adverse Reactions: carisoprodol [From Soma] Allergy (Verified 12/16/16 18:51) Sulfa (Sulfonamide Antibiotics) Allergy (Verified 12/16/16 18:51) Past Medical History - Social History Smoking Status: Never Smoker Chew tobacco use (# tins/day): No Frequency of alcohol use: Heavy Drug Abuse: Marijuana Family History: CAD, CVA, Hyperlipidemia, Hypertension, Malignancy, Thyroid Disfunction Patient has suicidal ideation: No Patient has homicidal ideation: No - Past Medical History Cardiac Medical History: Reports: Hx Hypercholesterolemia, Hx Hypertension Pulmonary Medical History: Reports: Hx Bronchitis Neurological Medical History: Reports: Hx Cerebrovascular Accident - States he has had a TIA. Denies: Hx Seizures Renal/ Medical History: Denies: Hx Peritoneal Dialysis GI Medical History: Reports: Hx Gastritis, Hx Hepatitis - Hepatitis-C, Hx Ulcer , Hx Endoscopy Musculoskeltal Medical History: Reports Hx Arthritis, Reports Hx Gout, Reports Hx Musculoskeletal Deformity, Reports Hx Musculoskeletal Trauma Psychiatric Medical History: Reports: Hx Anxiety, Hx Bipolar Disorder, Hx Post Traumatic Stress Disorder Denies: Hx Depression Traumatic Medical History: Reports: Hx Fractures - Right hand Infectious Medical History: Reports: Hx Hepatitis - Hepatitis-C Past Surgical History: Reports: Hx Orthopedic Surgery - R hand - Immunizations Immunizations up to date: Yes Hx Diphtheria, Pertussis, Tetanus Vaccination: Yes Review of Systems - Review of Systems Notes: My Normal Review Basic REVIEW OF SYSTEMS: CONSTITUTIONAL : Denies fever, chills, or sweats. Denies recent illness. EENT: Jaw pain. CARDIOVASCULAR: Denies chest pain. RESPIRATORY: Denies cough, cold, or chest congestion. Denies shortness of breath, difficulty breathing, or wheezing. GASTROINTESTINAL: Denies abdominal pain. Denies nausea, vomiting, or diarrhea. Denies constipation. Last BM: MUSCULOSKELETAL: Denies neck or back pain or joint pain or swelling. SKIN: Denies rash or skin lesions. NEUROLOGICAL: Denies altered mental status or loss of consciousness. Denies headache. Denies weakness or paralysis or loss of use of either side. Denies problems with gait or speech. Denies sensory or motor loss. ALL OTHER SYSTEMS REVIEWED AND NEGATIVE. Physical Exam - Vital signs Vitals: Pulse Resp BP Pulse Ox 130 H 22 H 151/90 H 97 12/16/16 18:51 12/16/16 18:51 12/16/16 18:51 12/16/16 18:51 - Notes Notes: General Appearance: Well nourished, alert, cooperative, no acute distress, no obvious discomfort. Vitals: reviewed, See vital signs table. Head: no swelling or tenderness to the head Eyes: PERRL, EOMI, Conjuctiva clear Mouth: No decreasd moisture Throat: Patient is unable to fully open his jaw first. However, when talking to him he will occasionally open it some and then go back to clenching his jaw together. Neck: Supple, no neck tenderness, No thyromegaly Lungs: No wheezing, No rales, No rhonci, No accessory muscle use, good air exchange bilaterally. Heart: Tachycardic rate, Regular rythm, No murmur, no rub Abdomen: Normal BS, soft, No rigidity, No abdominal tenderness, No guarding, no rebound, no abdominal masses, no organomegaly Extremities: strength 5/5 in all extremities, good pulses in all extremities, no swelling or tenderness in the extremities, no edema. Skin: warm, dry, appropriate color, no rash Neuro: speech clear, oriented x 3, normal affect, responds appropriately to questions. Course - Re-evaluation Re-evalutation: 12/16/16 23:04 I placed a right external jugular IV. He is a 18-gauge Angiocath. The vein was cannulated first attempt. Dark venous return. Line flushed Easily. I place this line because patient has known poor peripheral IV access. This way we can give him magnesium to the IV. 07/07/17 03:10 When I would evaluate the patient she would occasionally swing his legs in a [place] as if he was having a tremor. This is not at all consistent with that of a tremor from alcohol withdrawal. After initially left the room the nurse told me that he would only do that when I would come by the room. I therefore left the door open. I will look at the patient for far away where he cannot see me. If the patient cannot see me he would lay perfectly still without any tremor. When I would come to the room he would start to voluntarily shake his arms and legs. This is obviously voluntary. I rechecked him several times and each time he would do the same thing. After receiving magnesium patient's jaw is no longer tight. Is able to fully talk without any difficulties. I will place him on gabapentin to help prevent withdrawal. He does have some tachycardia. Patient has a history of chronic recurrent tachycardia so this is not surprising. Again on exam he does not appear to be consistent with withdrawal as he has absolutely no confusion and no involuntary tremor. I informed patient that some point that he does take the gabapentin. I have given him his initial dosages here. I will discharge him home with prescription for gabapentin. I encouraged him to cut back his alcohol. I did inform him if he continues to drink alcohol this will eventually lead to his . Patient shows understanding of this will be discharged home. Patient encouraged to return to ER if he has worsening of his symptoms, any seizure- like activity, or any recurrence of muscle spasms or clenching of the jaw. Dictation of this chart was performed using voice recognition software; therefore, there may be some unintended grammatical errors. - Vital Signs Vital signs: Temp Pulse Resp BP Pulse Ox 92 18 143/89 H 98 12/17/16 02:18 12/17/16 02:18 12/17/16 02:18 12/17/16 02:18 - Laboratory Result Diagrams: 12/16/16 19:45 12/16/16 19:45 Laboratory results interpreted by me: 12/16/16 12/16/16 12/16/16 19:45 19:45 19:45 RBC 4.03 L Hgb 12.8 L RDW 14.1 H Anion Gap 21 H BUN < 2 L Glucose 112 H Calcium 8.2 L Magnesium 0.9 L* Total Bilirubin 2.1 H Direct Bilirubin 1.5 H AST 254 H Alkaline Phosphatase 270 H Total Protein 8.5 H Discharge - Discharge Clinical Impression: Hypomagnesemia, Alcohol abuse Condition: Good Disposition: HOME, SELF-CARE Additional Instructions: Please cut back on your alcohol intake. Continued use of alcohol may lead to your . Please return to [facility] ER if you have recurrence of lock jaw, seizures , or feel unwell. Please take the gabapentin as prescribed. This will help prevent withdrawl. Please follow up with the rehab facility as scheduled. Prescriptions: Gabapentin 400 mg PO ASDIR PRN #21 capsule PRN Reason:
[2016-12-16] MEDS: MAGNESIUM SULFATE/D5W 100 ML IV SCH (23:16)
[2016-12-17] MEDS: MAGNESIUM SULFATE/D5W 100 ML IV SCH ×2 (00:23→01:25)
[2016-12-17] MEDS ORDERED: GABAPENTIN 400 MG CAPSULE PO ONE (01:17)
[2016-12-17] MEDS ORDERED: GABAPENTIN 300 MG CAPSULE PO ONE (03:02)
[2016-12-17 03:25] VITALS: BP 138/91
== END 2016-12-17 03:24 | disposition home or self-care (01) ==
LOC: ER 18:50
DX: E83.42 Hypomagnesemia (principal); R68.84 Jaw pain; F10.10 Alcohol abuse, uncomplicated
CPT/HCPCS: 99284; 96372; 96365; 96366; 36415; 80307; 83735; 85025; 80053; 81001; 70110; J3360; J3475 ×2

== ENCOUNTER 2017-01-05 23:54 | Emergency (ER) | payer SELFPAY ==
[2017-01-06] MEDS ORDERED: PANTOPRAZOLE SODIUM 40 MG VIAL IV ONE (00:45)
[2017-01-06] MEDS ORDERED: NORMAL SALINE 1000 ML 1,000 ML IV ONE ×3 (00:45→02:59)
[2017-01-06] MEDS ORDERED: ONDANSETRON HCL INJ/PF 4 MG/2 ML SDV IV ONE (00:45)
--- NOTE | 2017-01-06 00:47 | ER Document Report ---
ED GI/ - General Chief Complaint: Abdominal Pain Stated Complaint: ABDOMINAL PAIN Time Seen by Provider: 01/06/17 00:31 Notes: Patient is a 31-year-old male that comes emergency department for chief complaint of pain in his upper abdomen, vomiting 6 today, bloody streaks in his vomit, and he also states that he has noticed blood in his urine and some reddish blood in his stool. He denies fever. He has a past medical history of alcohol abuse, cocaine abuse, chronic pancreatitis, hypertension, hepatitis C. He had an endoscopy in October of this year that showed esophagitis. He has a history of alcohol withdrawal as well but states he did drink alcohol earlier today. He denies any surgical history. He denies any daily medications other than clonidine. TRAVEL OUTSIDE OF THE [place] IN LAST 30 DAYS: No - Related Data Allergies/Adverse Reactions: carisoprodol [From Soma] Allergy (Verified 01/05/17 23:57) Sulfa (Sulfonamide Antibiotics) Allergy (Verified 01/05/17 23:57) Home Medications: Current Home Medications Clonidine HCl 1 tab PO TID 01/05/17 [History] Past Medical History - General Information source: Patient - Social History Smoking Status: Current Some Day Smoker Frequency of alcohol use: Heavy Lives with: Family Family History: CAD, CVA, Hyperlipidemia, Hypertension, Malignancy, Thyroid Disfunction Patient has suicidal ideation: No Patient has homicidal ideation: No - Past Medical History Cardiac Medical History: Reports: Hx Hypercholesterolemia, Hx Hypertension Pulmonary Medical History: Reports: Hx Bronchitis Neurological Medical History: Reports: Hx Cerebrovascular Accident - States he has had a TIA. Denies: Hx Seizures Renal/ Medical History: Denies: Hx Peritoneal Dialysis GI Medical History: Reports: Hx Gastritis, Hx Hepatitis - Hepatitis-C, Hx Ulcer , Hx Endoscopy Musculoskeltal Medical History: Reports Hx Arthritis, Reports Hx Gout, Reports Hx Musculoskeletal Deformity, Reports Hx Musculoskeletal Trauma Psychiatric Medical History: Reports: Hx Anxiety, Hx Bipolar Disorder, Hx Post Traumatic Stress Disorder Denies: Hx Depression Traumatic Medical History: Reports: Hx Fractures - Right hand Infectious Medical History: Reports: Hx Hepatitis - Hepatitis-C Past Surgical History: Reports: Hx Orthopedic Surgery - R hand - Immunizations Immunizations up to date: Yes Hx Diphtheria, Pertussis, Tetanus Vaccination: Yes Review of Systems - Review of Systems Constitutional: No symptoms reported EENT: No symptoms reported Cardiovascular: No symptoms reported Respiratory: No symptoms reported Gastrointestinal: See HPI Genitourinary: No symptoms reported Male Genitourinary: No symptoms reported Musculoskeletal: No symptoms reported Skin: No symptoms reported Hematologic/Lymphatic: No symptoms reported Neurological/Psychological: No symptoms reported Physical Exam - Vital signs Vitals: Temp Pulse Resp BP Pulse Ox 97.5 F 107 H 20 139/86 H 98 01/05/17 23:58 01/05/17 23:58 01/05/17 23:58 01/05/17 23:58 01/05/17 23:58 Interpretation: Normal - General General appearance: Alert In distress: Mild - patient sitting forward, appears uncomfortable - HEENT Head: Normocephalic, Atraumatic Eyes: Normal Extraocular movements intact: Yes Eyelashes: Normal Pupils: PERRL Mucous membranes: Dry Pharynx: Normal Neck: Normal - Respiratory Respiratory status: No respiratory distress Chest status: Nontender Breath sounds: Normal Chest palpation: Normal - Cardiovascular Rhythm: Regular, Tachycardia Heart sounds: Normal auscultation, S1 appreciated, S2 appreciated Murmur: No - Abdominal Inspection: Normal Distension: No distension Bowel sounds: Normal Tenderness: Tender - generalized upper abdominal tenderness; no guarding or rigidity Organomegaly: No organomegaly - Back Back: Normal, Nontender. No: Tender - Extremities General upper extremity: Normal inspection, Nontender, Normal strength, Normal temperature General lower extremity: Normal inspection, Nontender, Normal strength, Normal temperature - Neurological Neuro grossly intact: Yes Cognition: Normal Orientation: AAOx4 Srikanth Coma Scale Eye Opening: Spontaneous Srikanth Coma Scale Verbal: Oriented Srikanth Coma Scale Motor: Obeys Commands [place] Coma Scale Total: 15 Speech: Normal Motor strength normal: LUE, RUE, LLE, RLE Sensory: Normal - Psychological Associated symptoms: Normal affect, Normal mood - Skin Skin Temperature: Warm Skin Moisture: Dry Skin Color: Normal Course - Re-evaluation Re-evalutation: Bicarbonate is normal, anion gap is slightly elevated with low chloride, mild leukocytosis probably reactive secondary to vomiting. Patient's examination of his abdomen is actually benign. Alk phos, AST, bilirubin are all elevated, however these were all baseline and comparable or even improved compared to patient's prior examinations. Lipase is normal. Patient still has a small amount of alcohol in his system. Patient stating he has been having blood in his vomit and bloody bowel movements for 2 days, however on examination there is no gross blood, he has not vomited during his entire stay here, and the Hemoccult is negative. I would have expected it to be positive after 2 days. Patient also states he is urinating blood but there is no hematuria. Evaluation patient is actually much improved, he appears better. I stood him up and he is able to stand and ambulate without difficulty. Patient significantly improved after medications and IV fluids. Tachycardia has resolved, heart rate is now in the 80s. He tolerated p.o. medications including Carafate and Phenergan without any difficulty. He is drinking fluids. Magnesium low, supplementing this. Discussed with Dr. Langley. Patient will be discharged at this time with referral to detox, given medications for gastritis, discussed return precautions including uncontrolled vomiting, return or worsening abdominal pain. Patient called me back, he states he wants something to help him not drink. After discussion patient was given Librium. - Vital Signs Vital signs: Temp Pulse Resp BP Pulse Ox 98.3 F 107 H 15 149/99 H 100 01/06/17 05:00 01/05/17 23:58 01/06/17 05:01 01/06/17 05:00 01/06/17 05:01 - Laboratory Result Diagrams: 01/06/17 01:10 01/06/17 01:10 Laboratory results interpreted by me: 01/06/17 01/06/17 01/06/17 01:10 01:10 01:10 WBC 11.5 H RBC 4.32 L Plt Count 475 H Absolute Neutrophils 8.4 H Sodium 146.5 H Chloride 96 L Anion Gap 26 H BUN 3 L Glucose 148 H Magnesium 0.8 L* Total Bilirubin 2.3 H Direct Bilirubin 1.8 H AST 234 H Alkaline Phosphatase 288 H Total Protein 10.4 H Discharge - Discharge Clinical Impression: Polysubstance abuse Vomiting Qualifiers: Vomiting type: unspecified Vomiting Intractability: non-intractable Nausea presence: with nausea Qualified Code(s): R11.2 - Nausea with vomiting, unspecified Abdominal pain Qualifiers: Abdominal location: generalized Qualified Code(s): R10.84 - Generalized abdominal pain Alcohol dependence Qualifiers: Substance use status: uncomplicated Qualified Code(s): F10.20 - Alcohol dependence, uncomplicated Condition: Stable Disposition: HOME, SELF-CARE Additional Instructions: Take the medications as prescribed. Start with clear fluids, progress to bland foods. Follow up with Detox referral ([facility]) for alcohol dependence. Return for any concerning worsening symptoms including uncontrolled vomiting, black stools, severe abdominal pain, or any other concerning symptoms. Prescriptions: Chlordiazepoxide HCl [Librium 25 mg Capsule] 1 cap PO ASDIR PRN #25 capsule PRN Reason: Famotidine [Pepcid 20 mg Tablet] 20 mg PO DAILY #20 tablet Promethazine HCl [Phenergan 25 mg Tablet] 1 - 2 tab PO Q6H PRN #20 tablet PRN Reason: Sucralfate [Carafate 1 gm Tablet] 1 gm PO QID #40 tablet Referrals: [facility] [Provider Group] - Follow up as needed
[2017-01-06 01:38] LABS: ALANINE AMINOTRANSFERASE 54 U/L (21-72); ALCOHOL 26 mg/dL (NONE DETECTED); ALKALINE PHOSPHATASE 288 U/L (38-126); ASPARTATE AMINO TRANSFERASE 234 U/L (17-59); BILIRUBIN,DIRECT 1.8 mg/dL (0.0-0.4); BILIRUBIN,TOTAL 2.3 mg/dL (0.2-1.3); BLOOD UREA NITROGEN 3 mg/dL (7-20); CALCIUM 9.1 mg/dL (8.4-10.2); CHLORIDE 96 mmol/L (98-107); CREATININE RESULT 0.87 mg/dL (0.52-1.25); GLUCOSE 148 mg/dL (75-110); LIPASE 72.3 U/L (23-300); TOTAL PROTEIN 10.4 g/dL (6.3-8.2)
[2017-01-06 01:39] LABS: ABSOLUTE BASOPHILS # (AUTO) 0.1 10^3/uL (0.0-0.2); ABSOLUTE MONOCYTES (AUTO) 0.5 10^3/uL (0.1-1.4); ABSOLUTE NEUT (AUTO) 8.4 10^3/uL (1.7-8.2); EOSINOPHILS % (AUTO) 0.2 % (0-6); HEMOGLOBIN 14.5 g/dL (13.5-17.0); MEAN CORPUSCULAR HEMOGLOBIN 33.4 pg (27.0-33.4); MEAN CORPUSCULAR HGB CONC 34.8 g/dL (32.0-36.0)
[2017-01-06 01:41] LABS: ABSOLUTE LYMPHOCYTES (AUTO) 2.4 10^3/uL (0.5-4.7); BASOPHILS % (AUTO) 1.2 % (0-2); HEMATOCRIT 41.5 % (37.9-51.0); LYMPHOCYTES % (AUTO) 20.7 % (13-45); MEAN CORPUSCULAR VOLUME 96 fl (80-97); MONOCYTES % (AUTO) 4.8 % (3-13); RED BLOOD COUNT 4.32 10^6/uL (4.35-5.55); SEGMENTED NEUTROPHILS % (AUTO) 73.1 % (42-78); WHITE BLOOD COUNT 11.5 10^3/uL (4.0-10.5)
[2017-01-06 01:45] LABS: CARBON DIOXIDE 25 mmol/L (22-30); SODIUM 146.5 mmol/L (137-145)
[2017-01-06 01:51] LABS: ANION GAP 26 (5-19)
[2017-01-06] MEDS ORDERED: LORAZEPAM INJ 2 MG/1 ML VIAL IV ONE (01:52)
[2017-01-06] MEDS ORDERED: SUCRALFATE 1 GM TABLET PO ONE (02:58)
[2017-01-06] MEDS ORDERED: PROMETHAZINE HCL 25 MG TABLET PO ONE (02:58)
[2017-01-06] MEDS: MAGNESIUM SULFATE/D5W 100 ML IV SCH ×2 (04:47→05:09)
[2017-01-06] MEDS ORDERED: LORAZEPAM 1 MG TABLET PO ONE (05:28)
[2017-01-06 05:30] VITALS: BP 149/99
--- NOTE | 2017-01-06 17:19 | EKG REPORT ---
SEVERITY:- ABNORMAL ECG - SINUS TACHYCARDIA BORDERLINE T ABNORMALITIES, INFERIOR LEADS PROLONGED QT INTERVAL : Confirmed by: Ching Martin MD 06-Jan-2017 17:18:24
== END 2017-01-06 05:30 | disposition home or self-care (01) ==
LOC: ER 23:54
DX: R10.84 Generalized abdominal pain (principal); F10.20 Alcohol dependence, uncomplicated; K92.0 Hematemesis; D72.829 Elevated white blood cell count, unspecified; R00.0 Tachycardia, unspecified; I10 Essential (primary) hypertension; F17.200 Nicotine dependence, unspecified, uncomplicated; Z87.19 Personal history of other diseases of the digestive system; Z86.19 Personal history of other infectious and parasitic diseases; Z79.899 Other long term (current) drug therapy; Z88.8 Allergy status to other drugs, medicaments and biological substances; Z88.2 Allergy status to sulfonamides
CPT/HCPCS: 93005; 99284; 96361; 96375; 96365; 86900; 86901; 36415; 86850; 80307; 83690; 83735; 85025; 82272; 80053; 93010; J2060; J3475; S0164; J2405; J7030

== ENCOUNTER 2017-02-21 11:23 | Emergency (ER) | payer SELFPAY ==
[2017-02-21] MEDS ORDERED: ONDANSETRON HCL INJ/PF 4 MG/2 ML SDV IV ONE (12:10)
--- NOTE | 2017-02-21 12:11 | ER Document Report ---
ED Medical Screen (RME) - General Chief Complaint: Abdominal Pain Stated Complaint: ABDOMINAL PAIN Time Seen by Provider: 02/21/17 12:04 Mode of Arrival: Wheelchair Information source: Patient TRAVEL OUTSIDE OF THE [place] IN LAST 30 DAYS: No - HPI Patient complains to provider of: abdominal pain, vomiting Notes: 02/21/17 12:10 Patient is a 31-year-old male who admits to being an alcoholic, drinking anywhere from 1/5 to a gallon of vodka on a daily basis, he presents to the emergency room today complaining of abdominal distention, abdominal pain, nausea and vomiting, his last alcoholic drink was at 4:00 this morning, he is requesting assistance with placement in detox or rehab - Related Data Allergies/Adverse Reactions: carisoprodol [From Soma] Allergy (Verified 02/21/17 11:34) Sulfa (Sulfonamide Antibiotics) Allergy (Verified 02/21/17 11:34) Past Medical History - Past Medical History Cardiac Medical History: Reports: Hx Hypercholesterolemia, Hx Hypertension Pulmonary Medical History: Reports: Hx Bronchitis Neurological Medical History: Reports: Hx Cerebrovascular Accident - States he has had a TIA. Denies: Hx Seizures Renal/ Medical History: Denies: Hx Peritoneal Dialysis GI Medical History: Reports: Hx Gastritis, Hx Hepatitis - Hepatitis-C, Hx Ulcer , Hx Endoscopy Musculoskeltal Medical History: Reports Hx Arthritis, Reports Hx Gout, Reports Hx Musculoskeletal Deformity, Reports Hx Musculoskeletal Trauma Psychiatric Medical History: Reports: Hx Anxiety, Hx Bipolar Disorder, Hx Post Traumatic Stress Disorder Denies: Hx Depression Traumatic Medical History: Reports: Hx Fractures - Right hand Infectious Medical History: Reports: Hx Hepatitis - Hepatitis-C Past Surgical History: Reports: Hx Orthopedic Surgery - R hand - Immunizations Immunizations up to date: Yes Hx Diphtheria, Pertussis, Tetanus Vaccination: Yes Physical Exam - Vital signs Vitals: Temp Pulse Resp BP Pulse Ox 98.6 F 125 H 18 128/86 H 98 02/21/17 11:32 02/21/17 11:32 02/21/17 11:32 02/21/17 11:32 02/21/17 11:32 Course - Vital Signs Vital signs: Temp Pulse Resp BP Pulse Ox 98.6 F 125 H 18 128/86 H 98 02/21/17 11:32 02/21/17 11:32 02/21/17 11:32 02/21/17 11:32 02/21/17 11:32
[2017-02-21] MEDS ORDERED: LORAZEPAM INJ 2 MG/1 ML VIAL IV ONE (12:28)
[2017-02-21] MEDS: NORMAL SALINE 1000 ML 1,000 ML IV PRN ×2 (13:15→15:32)
[2017-02-21] MEDS ORDERED: LORAZEPAM 1 MG TABLET PO ONE (13:27)
[2017-02-21] MEDS ORDERED: PANTOPRAZOLE SODIUM 40 MG VIAL IV ONE (13:28)
[2017-02-21] MEDS ORDERED: NORMAL SALINE 1000 ML 1,000 ML IV ONE (13:28)
[2017-02-21 13:31] LABS: APPEARANCE,URINE CLEAR; BILIRUBIN,URINE NEGATIVE (NEGATIVE); GLUCOSE, URINE NEGATIVE (NEGATIVE); KETONES,URINE NEGATIVE (NEGATIVE); LEUKOCYTE ESTERASE,URINE NEGATIVE (NEGATIVE); NITRITE,URINE NEGATIVE (NEGATIVE); PROTEIN,URINE NEGATIVE (NEGATIVE); URINE SPECIFIC GRAVITY 1.003
[2017-02-21 13:36] LABS: ABSOLUTE BASOPHILS # (AUTO) 0.1 10^3/uL (0.0-0.2); ABSOLUTE LYMPHOCYTES (AUTO) 3.1 10^3/uL (0.5-4.7); ABSOLUTE MONOCYTES (AUTO) 0.7 10^3/uL (0.1-1.4); ABSOLUTE NEUT (AUTO) 6.7 10^3/uL (1.7-8.2); BASOPHILS % (AUTO) 1.3 % (0-2); EOSINOPHILS % (AUTO) 0.1 % (0-6); HEMATOCRIT 41.2 % (37.9-51.0); HGB HCT DIFFERENCE 0.8; LYMPHOCYTES % (AUTO) 29.1 % (13-45); MEAN CORPUSCULAR VOLUME 97 fl (80-97); MONOCYTES % (AUTO) 6.7 % (3-13); RED BLOOD COUNT 4.24 10^6/uL (4.35-5.55); RED CELL DISTRIBUTION WIDTH 13.1 % (11.5-14.0); SEGMENTED NEUTROPHILS % (AUTO) 62.8 % (42-78); WHITE BLOOD COUNT 10.6 10^3/uL (4.0-10.5)
[2017-02-21 13:40] LABS: PROTHROMBIN TIME 12.5 SEC (11.4-15.4)
[2017-02-21 13:47] LABS: URINE BARBITURATES SCREEN NEGATIVE; URINE METHADONE SCREEN NEGATIVE; URINE OPIATES LOW UNCONFIRMED POSITIVE; URINE PHENCYCLIDINE SCREEN NEGATIVE
[2017-02-21 14:01] LABS: ALANINE AMINOTRANSFERASE 49 U/L (21-72); ALBUMIN 4.5 g/dL (3.5-5.0); ALCOHOL 194 mg/dL (NONE DETECTED); ALKALINE PHOSPHATASE 340 U/L (38-126); ASPARTATE AMINO TRANSFERASE 386 U/L (17-59); BILIRUBIN,DIRECT 2.6 mg/dL (0.0-0.4); BLOOD UREA NITROGEN 2 mg/dL (7-20); CALCIUM 9.7 mg/dL (8.4-10.2); CREATININE RESULT 0.56 mg/dL (0.52-1.25); GLUCOSE 124 mg/dL (75-110); LIPASE 137.9 U/L (23-300)
[2017-02-21 14:13] LABS: CARBON DIOXIDE 30 mmol/L (22-30); CHLORIDE 80 mmol/L (98-107); SODIUM 137.1 mmol/L (137-145)
[2017-02-21 14:16] LABS: POTASSIUM 2.8 mmol/L (3.6-5.0)
[2017-02-21 14:20] LABS: ANION GAP 27 (5-19)
[2017-02-21] MEDS ORDERED: POTASSIUM CHLORIDE 10 MEQ TABLET.SA PO ONE (14:53)
[2017-02-21] MEDS ORDERED: MAGNESIUM SULFATE/D5W 1 GM/100 ML RTUPB IV ONE (14:53)
--- NOTE | 2017-02-21 16:47 | RADIOLOGY REPORT (SQ) ---
EXAM DESCRIPTION: ACUTE ABDOMEN SERIES COMPLETED DATE/TIME: 02/21/2017 4:37 pm REASON FOR STUDY: abd pain COMPARISON: None. NUMBER OF VIEWS: Three views. TECHNIQUE: Frontal chest, supine abdomen and upright abdomen radiographic images acquired. LIMITATIONS: None. FINDINGS: CHEST: Lungs clear of infiltrates. FREE AIR: None. No abnormal gas collections. BOWEL GAS PATTERN: Nonobstructive pattern. No dilated loops or air fluid levels. CALCIFICATIONS: No suspicious calcifications. HARDWARE: None in the abdomen. SOFT TISSUES: No gross mass or suggestion of organomegaly. BONES: No acute fracture. No worrisome bone lesions. OTHER: No other significant finding. IMPRESSION: NO RADIOGRAPHIC EVIDENCE FOR ACUTE ABDOMINAL DISEASE. TECHNICAL DOCUMENTATION: JOB ID: [id number] [employer]- All Rights Reserved
--- NOTE | 2017-02-21 17:42 | ER Document Report ---
ED General - General Chief Complaint: Abdominal Pain Stated Complaint: ABDOMINAL PAIN Time Seen by Provider: 02/21/17 12:04 Mode of Arrival: Wheelchair TRAVEL OUTSIDE OF THE [place] IN LAST 30 DAYS: No - HPI Patient complains to provider of: Abdominal pain EtOH Notes: Patient coming in for evaluation of abdominal pain patient has history of alcohol abuse. Upon my evaluation patient sleeping easily arousable upon waking patient is requesting something for his tremors. Explained to the patient that time that he had no signs of acute alcohol withdrawal patient complaining of epigastric abdominal pain. Patient does admit to drinking alcohol. Patient does request alcohol detox. Patient denies any fevers chills nausea vomiting diarrhea. - Related Data Allergies/Adverse Reactions: carisoprodol [From Soma] Allergy (Verified 02/21/17 11:34) Sulfa (Sulfonamide Antibiotics) Allergy (Verified 02/21/17 11:34) Past Medical History - General Information source: Patient - Social History Smoking Status: Never Smoker Chew tobacco use (# tins/day): No Frequency of alcohol use: None Drug Abuse: Marijuana Family History: CAD, CVA, Hyperlipidemia, Hypertension, Malignancy, Thyroid Disfunction - Past Medical History Cardiac Medical History: Reports: Hx Hypercholesterolemia, Hx Hypertension Pulmonary Medical History: Reports: Hx Bronchitis Neurological Medical History: Reports: Hx Cerebrovascular Accident - States he has had a TIA. Denies: Hx Seizures Renal/ Medical History: Denies: Hx Peritoneal Dialysis GI Medical History: Reports: Hx Gastritis, Hx Hepatitis - Hepatitis-C, Hx Ulcer , Hx Endoscopy Musculoskeltal Medical History: Reports Hx Arthritis, Reports Hx Gout, Reports Hx Musculoskeletal Deformity, Reports Hx Musculoskeletal Trauma Psychiatric Medical History: Reports: Hx Anxiety, Hx Bipolar Disorder, Hx Post Traumatic Stress Disorder Denies: Hx Depression Traumatic Medical History: Reports: Hx Fractures - Right hand Infectious Medical History: Reports: Hx Hepatitis - Hepatitis-C Past Surgical History: Reports: Hx Orthopedic Surgery - R hand - Immunizations Immunizations up to date: Yes Hx Diphtheria, Pertussis, Tetanus Vaccination: Yes Review of Systems - Review of Systems Constitutional: No symptoms reported EENT: No symptoms reported Cardiovascular: No symptoms reported Respiratory: No symptoms reported Gastrointestinal: Abdominal pain Genitourinary: No symptoms reported Male Genitourinary: No symptoms reported Musculoskeletal: No symptoms reported Skin: No symptoms reported Hematologic/Lymphatic: No symptoms reported Neurological/Psychological: No symptoms reported -: Yes All other systems reviewed and negative Physical Exam - Vital signs Vitals: Temp Pulse Resp BP Pulse Ox 98.6 F 125 H 18 128/86 H 98 02/21/17 11:32 02/21/17 11:32 02/21/17 11:32 02/21/17 11:32 02/21/17 11:32 Interpretation: Normal - General General appearance: Appears well, Alert - HEENT Head: Normocephalic, Atraumatic Eyes: Normal Pupils: PERRL - Respiratory Respiratory status: No respiratory distress Chest status: Nontender Breath sounds: Normal Chest palpation: Normal - Cardiovascular Rhythm: Regular Heart sounds: Normal auscultation Murmur: No - Abdominal Inspection: Normal Distension: No distension Bowel sounds: Normal Tenderness: Nontender Organomegaly: No organomegaly - Back Back: Normal, Nontender - Extremities General upper extremity: Normal inspection, Nontender, Normal color, Normal ROM , Normal temperature General lower extremity: Normal inspection, Nontender, Normal color, Normal ROM , Normal temperature, Normal weight bearing. No: Rukhsana's sign - Neurological Neuro grossly intact: Yes Cognition: Normal Orientation: AAOx4 [place] Coma Scale Eye Opening: Spontaneous [place] Coma Scale Verbal: Oriented [place] Coma Scale Motor: Obeys Commands [place] Coma Scale Total: 15 Speech: Normal Motor strength normal: LUE, RUE, LLE, RLE Sensory: Normal - Psychological Associated symptoms: Normal affect, Normal mood - Skin Skin Temperature: Warm Skin Moisture: Dry Skin Color: Normal Course - Re-evaluation Re-evalutation: 02/21/17 18:46 Patient's electrolytes does show hypokalemia hypomagnesemia and elevated alcohol level. Urinalysis does show benzodiazepines and opiates which patient does admit to taking pain medication and benzodiazepines that he had "lying around" electrolytes these were replaced. Patient again showed no signs of active alcohol withdrawals. 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 - Vital Signs Vital signs: Temp Pulse Resp BP Pulse Ox 98.3 F 98 18 128/88 H 99 02/21/17 18:33 02/21/17 18:33 02/21/17 11:32 02/21/17 18:33 02/21/17 18:33 - Laboratory Result Diagrams: 02/21/17 13:10 02/21/17 13:10 Laboratory results interpreted by me: 02/21/17 02/21/17 02/21/17 13:10 13:10 13:10 WBC 10.6 H RBC 4.24 L Potassium 2.8 L* Chloride 80 L Anion Gap 27 H BUN 2 L Glucose 124 H Magnesium Total Bilirubin 3.0 H Direct Bilirubin 2.6 H AST 386 H Alkaline Phosphatase 340 H Total Protein 9.0 H Urine Urobilinogen 2.0 H Salicylates < 1.0 L Acetaminophen < 10 L 02/21/17 14:10 WBC RBC Potassium Chloride Anion Gap BUN Glucose Magnesium 1.3 L Total Bilirubin Direct Bilirubin AST Alkaline Phosphatase Total Protein Urine Urobilinogen Salicylates Acetaminophen Discharge - Discharge Clinical Impression: Alcohol dependence Qualifiers: Substance use status: unspecified alcohol-induced disorder Qualified Code(s): F10.29 - Alcohol dependence with unspecified alcohol-induced disorder Alcoholic gastritis Qualifiers: Chronicity: unspecified Gastritis bleeding: presence of bleeding unspecified Qualified Code(s): K29.20 - Alcoholic gastritis without bleeding Condition: Good Disposition: HOME, SELF-CARE Instructions: Abdominal Pain ([facility]), Acute Alcohol Intoxication ([facility]), Chronic Alcoholism ([facility]) Additional Instructions: Your laboratory studies today did not show any signs of significant pathology except for low magnesium low potassium which is related to your alcohol use. We did replace her magnesium potassium here in the ER. Highly recommend he follow up for detox. Return to the ER symptoms worsen. Prescriptions: Chlordiazepoxide HCl [Librium 25 mg Capsule] 1 cap PO QID #7 capsule Forms: Return to Work Referrals: [facility] [Provider Group] - Follow up as needed [facility] [Provider Group] - Follow up as needed
[2017-02-21 18:36] VITALS: BP 128/88
== END 2017-02-21 18:03 | disposition home or self-care (01) ==
LOC: ER 11:23
DX: F10.29 Alcohol dependence with unspecified alcohol-induced disorder (principal); K29.20 Alcoholic gastritis without bleeding; R10.9 Unspecified abdominal pain; R10.13 Epigastric pain
CPT/HCPCS: 99284; 96361; 96375; 96365; 36415; 80307 ×4; 83690; 83735; 85025; 85610; 85730; 80053; 81001; 74022; J3475; S0164; J2405; J7030

== ENCOUNTER 2017-03-25 19:08 | Emergency (ER) | payer SELFPAY ==
[2017-03-25] MEDS ORDERED: ONDANSETRON HCL INJ/PF 4 MG/2 ML SDV IV ONE (19:24)
--- NOTE | 2017-03-25 19:24 | ER Document Report ---
ED Medical Screen (RME) - General Chief Complaint: Vomiting Stated Complaint: VOMITING Time Seen by Provider: 03/25/17 19:17 Notes: patient is a 31 year old male who presents to the ED complaining of epigastric pain , nausea, vomiting for 2 days. worse today. Has been drinking approx one 1/ 5 of vodka for the past couple of days. PMH; HTN on clonidine no PCP TRAVEL OUTSIDE OF THE [place] IN LAST 30 DAYS: No - Related Data Allergies/Adverse Reactions: carisoprodol [From Soma] Allergy (Verified 03/25/17 19:09) Sulfa (Sulfonamide Antibiotics) Allergy (Verified 03/25/17 19:09) Past Medical History - Past Medical History Cardiac Medical History: Reports: Hx Hypercholesterolemia, Hx Hypertension Pulmonary Medical History: Reports: Hx Bronchitis Neurological Medical History: Reports: Hx Cerebrovascular Accident - States he has had a TIA. Denies: Hx Seizures Renal/ Medical History: Denies: Hx Peritoneal Dialysis GI Medical History: Reports: Hx Gastritis, Hx Hepatitis - Hepatitis-C, Hx Ulcer , Hx Endoscopy Musculoskeltal Medical History: Reports Hx Arthritis, Reports Hx Gout, Reports Hx Musculoskeletal Deformity, Reports Hx Musculoskeletal Trauma Psychiatric Medical History: Reports: Hx Anxiety, Hx Bipolar Disorder, Hx Post Traumatic Stress Disorder Denies: Hx Depression Traumatic Medical History: Reports: Hx Fractures - Right hand Infectious Medical History: Reports: Hx Hepatitis - Hepatitis-C Past Surgical History: Reports: Hx Orthopedic Surgery - R hand - Immunizations Immunizations up to date: Yes Hx Diphtheria, Pertussis, Tetanus Vaccination: Yes Physical Exam - Vital signs Vitals: Temp Pulse Resp BP Pulse Ox 98.7 F 130 H 22 H 175/92 H 96 03/25/17 19:09 03/25/17 19:09 03/25/17 19:09 03/25/17 19:09 03/25/17 19:09 - General General appearance: Appears well, Alert In distress: None - Respiratory Respiratory status: No respiratory distress Chest status: Nontender Breath sounds: Normal Chest palpation: Normal - Cardiovascular Rhythm: Regular Heart sounds: Normal auscultation, S1 appreciated, S2 appreciated Gallop: None auscultated - Abdominal Inspection: Normal Distension: Distended Tenderness: Tender Organomegaly: No organomegaly Course - Vital Signs Vital signs: Temp Pulse Resp BP Pulse Ox 98.7 F 130 H 22 H 175/92 H 96 03/25/17 19:09 03/25/17 19:09 03/25/17 19:09 03/25/17 19:09 03/25/17 19:09
[2017-03-25] MEDS ORDERED: NORMAL SALINE 1000 ML 1,000 ML IV ONE ×3 (19:34→22:22)
[2017-03-25 20:14] LABS: ABSOLUTE BASOPHILS # (AUTO) 0.1 10^3/uL (0.0-0.2); ABSOLUTE LYMPHOCYTES (AUTO) 2.6 10^3/uL (0.5-4.7); ABSOLUTE MONOCYTES (AUTO) 0.9 10^3/uL (0.1-1.4); ABSOLUTE NEUT (AUTO) 12.8 10^3/uL (1.7-8.2); BASOPHILS % (AUTO) 0.8 % (0-2); HEMATOCRIT 41.2 % (37.9-51.0); HEMOGLOBIN 14.4 g/dL (13.5-17.0); LYMPHOCYTES % (AUTO) 16.1 % (13-45); MEAN CORPUSCULAR HEMOGLOBIN 34.5 pg (27.0-33.4); MEAN CORPUSCULAR VOLUME 99 fl (80-97); MONOCYTES % (AUTO) 5.4 % (3-13); RED BLOOD COUNT 4.18 10^6/uL (4.35-5.55); RED CELL DISTRIBUTION WIDTH 15.6 % (11.5-14.0); SEGMENTED NEUTROPHILS % (AUTO) 77.7 % (42-78); WHITE BLOOD COUNT 16.5 10^3/uL (4.0-10.5)
[2017-03-25] MEDS ORDERED: METOCLOPRAMIDE HCL ORAL SOLN 10 MG/10 ML UDCUP PO ONE (20:19)
[2017-03-25] MEDS ORDERED: FAMOTIDINE 20 MG TABLET PO ONE (20:19)
[2017-03-25] MEDS ORDERED: LIDOCAINE 2% VISCOUS SOLN 20 ML UDCUP PO ONE (20:19)
[2017-03-25] MEDS ORDERED: MAG HYDROX/AL HYDROX/SIMETH SUSP 30 ML UDCUP PO ONE (20:19)
[2017-03-25 20:29] LABS: ALANINE AMINOTRANSFERASE 35 U/L (21-72); ALBUMIN 5.1 g/dL (3.5-5.0); ALKALINE PHOSPHATASE 305 U/L (38-126); ASPARTATE AMINO TRANSFERASE 398 U/L (17-59); BILIRUBIN,DIRECT 3.2 mg/dL (0.0-0.4); BLOOD UREA NITROGEN 3 mg/dL (7-20); CALCIUM 9.7 mg/dL (8.4-10.2); CHLORIDE 89 mmol/L (98-107); CREATININE RESULT 0.61 mg/dL (0.52-1.25); GLUCOSE 148 mg/dL (75-110); LIPASE 503.5 U/L (23-300); POTASSIUM 3.5 mmol/L (3.6-5.0)
[2017-03-25] MEDS ORDERED: METOCLOPRAMIDE HCL INJ/PF 10 MG/2 ML SDV IV ONE (20:31)
[2017-03-25] MEDS ORDERED: DIAZEPAM INJ 10 MG/2 ML DISP.SYRIN IV ONE ×2 (20:31→23:25)
[2017-03-25 20:46] LABS: ANION GAP 39 (5-19); CARBON DIOXIDE 21 mmol/L (22-30); SODIUM 148.6 mmol/L (137-145)
[2017-03-25] MEDS ORDERED: PANTOPRAZOLE SODIUM 40 MG VIAL IV ONE (20:47)
--- NOTE | 2017-03-25 20:47 | ER Document Report ---
ED General - General Chief Complaint: Vomiting Stated Complaint: VOMITING Time Seen by Provider: 03/25/17 19:17 Notes: Patient is a 31-year-old male well-known to this emergency department, polysubstance abuser including chronic tobacco, alcohol, opiate, benzodiazepine , and marijuana abuse. Patient admits to ongoing alcohol use today. He presents complaining of abdominal pain with vomiting with several small flecks of blood in the vomitus. Patient has presented to the emergency department with this complaint more than a dozen times in the past 2 years. Patient does admit that despite his vomiting he has continued to drink heavily today. Does describe his abdominal pain as a dull, constant, aching pain to the upper abdomen. Nothing improves or worsens his pain or vomiting. He does not have a primary care physician. TRAVEL OUTSIDE OF THE [place] IN LAST 30 DAYS: No - Related Data Allergies/Adverse Reactions: carisoprodol [From Soma] Allergy (Verified 03/25/17 19:09) Sulfa (Sulfonamide Antibiotics) Allergy (Verified 03/25/17 19:09) Past Medical History - General Information source: Patient - Social History Smoking Status: Current Every Day Smoker Chew tobacco use (# tins/day): No Frequency of alcohol use: Heavy Drug Abuse: Marijuana Lives with: Family Family History: CAD, CVA, Hyperlipidemia, Hypertension, Malignancy, Thyroid Disfunction Patient has suicidal ideation: No Patient has homicidal ideation: No - Past Medical History Cardiac Medical History: Reports: Hx Hypercholesterolemia, Hx Hypertension Pulmonary Medical History: Reports: Hx Bronchitis Neurological Medical History: Reports: Hx Cerebrovascular Accident - States he has had a TIA. Denies: Hx Seizures Renal/ Medical History: Denies: Hx Peritoneal Dialysis GI Medical History: Reports: Hx Gastritis, Hx Hepatitis - Hepatitis-C, Hx Ulcer , Hx Endoscopy Musculoskeltal Medical History: Reports Hx Arthritis, Reports Hx Gout, Reports Hx Musculoskeletal Deformity, Reports Hx Musculoskeletal Trauma Psychiatric Medical History: Reports: Hx Anxiety, Hx Bipolar Disorder, Hx Post Traumatic Stress Disorder Denies: Hx Depression Traumatic Medical History: Reports: Hx Fractures - Right hand Infectious Medical History: Reports: Hx Hepatitis - Hepatitis-C Past Surgical History: Reports: Hx Orthopedic Surgery - R hand - Immunizations Immunizations up to date: Yes Hx Diphtheria, Pertussis, Tetanus Vaccination: Yes Review of Systems - Review of Systems Notes: Constitutional: Negative for fever. HENT: Negative for sore throat. Eyes: Negative for visual changes. Cardiovascular: Negative for chest pain. Respiratory: Negative for shortness of breath. Gastrointestinal: Positive for abdominal pain and vomiting Genitourinary: Negative for dysuria. Musculoskeletal: Negative for back pain. Skin: Negative for rash. Neurological: Negative for headaches, weakness or numbness. 10 point ROS negative except as marked above and in HPI. Physical Exam - Vital signs Vitals: Temp Pulse Resp BP Pulse Ox 98.7 F 130 H 22 H 175/92 H 96 03/25/17 19:09 03/25/17 19:09 03/25/17 19:09 03/25/17 19:09 03/25/17 19:09 Interpretation: Tachycardic, Tachypneic Notes: PHYSICAL EXAMINATION: GENERAL: Appears older than stated age, no acute distress HEAD: Atraumatic, normocephalic. EYES: Pupils equal round and reactive to light, extraocular movements intact, sclera anicteric, conjunctiva are normal. ENT: nares patent, oropharynx clear without exudates. Moderately dry mucous membranes. NECK: Normal range of motion, supple without lymphadenopathy LUNGS: Breath sounds clear to auscultation bilaterally and equal. No wheezes rales or rhonchi. HEART: Regular tachycardia without murmurs ABDOMEN: Soft, focal tenderness to the epigastrium without rebound or guarding.. EXTREMITIES: Normal range of motion, no pitting or edema. No cyanosis. NEUROLOGICAL: No focal neurological deficits. Moves all extremities spontaneously and on command. PSYCH: Mildly intoxicated SKIN: Warm, Dry, normal turgor, no rashes or lesions noted. Course - Re-evaluation Re-evalutation: 03/25/17 20:45 Patient presents with 2 days of persistent vomiting with small amounts of blood in the vomitus. Patient did vomit here and I did inspect the vomit at the bedside, appears to be nonbilious vomitus with several small flecks of blood but no gross hematemesis. No evidence of coffee-ground emesis. Hemoglobin within normal limits. Patient is a long-standing alcoholic and does admit to ongoing heavy alcohol use. He arrives tachycardic, somewhat listless and ill in appearance. He has exquisite tenderness to the epigastrium right upper quadrant on palpation. Given his tachycardia and mild hypertension as well as not having had an alcoholic beverage in over 4-5 hours I am also concerned that there is a component of alcohol withdrawal in his initial presentation. Will continue to monitor closely. I have started on IV diazepam, pantoprazole, and aggressive IV fluids 03/25/17 23:25 Heart rate is improving, patient is tolerating oral intake. Is beginning to have some withdrawals will give an additional 10 mg of IV diazepam. Review of his laboratories does show extensive abnormalities although review of prior laboratories again shows that this is at his baseline. His LFTs are unchanged from prior, bilirubin is only mildly elevated above prior. His lipase is not elevated enough to diagnose acute pancreatitis. His chloride is persistently low with an associated anion gap, actually somewhat improved today relative to the past. I do not see an acute indication for admission of this patient. I have informed him that he is slowly killing himself with his ongoing alcohol use and he needs to seek rehab urgently. At this time will discharge with return precautions and follow-up recommendations. Verbal discharge instructions given a the bedside and opportunity for questions given. Medication warnings reviewed. Patient is in agreement with this plan and has verbalized understanding of return precautions and the need for primary care follow-up in the next 24-72 hours. - Vital Signs Vital signs: Temp Pulse Resp BP Pulse Ox 98.1 F 102 H 20 142/86 H 97 03/26/17 00:12 03/26/17 00:12 03/26/17 00:12 03/26/17 00:12 03/26/17 00:12 - Laboratory Result Diagrams: 03/25/17 19:44 03/25/17 19:44 Laboratory results interpreted by me: 03/25/17 03/25/17 03/25/17 19:44 19:44 20:05 WBC 16.5 H RBC 4.18 L MCV 99 H MCH 34.5 H RDW 15.6 H Absolute Neutrophils 12.8 H Sodium 148.6 H Potassium 3.5 L Chloride 89 L Carbon Dioxide 21 L Anion Gap 39 H BUN 3 L Glucose 148 H Total Bilirubin 4.0 H Direct Bilirubin 3.2 H AST 398 H Alkaline Phosphatase 305 H Total Protein 10.0 H Albumin 5.1 H Lipase 503.5 H Urine Protein >=500 H Urine Glucose (UA) 50 H Urine Blood SMALL H Urine Bilirubin SMALL H Urine Urobilinogen 4.0 H Serum Alcohol 353 H* - Diagnostic Test Radiology reviewed: Reports reviewed Discharge - Discharge Clinical Impression: Tachycardia Alcohol withdrawal Qualifiers: Complication of substance-induced condition: with unspecified complication Qualified Code(s): F10.239 - Alcohol dependence with withdrawal, unspecified Abdominal pain Qualifiers: Abdominal location: generalized Qualified Code(s): R10.84 - Generalized abdominal pain Alcohol dependence Qualifiers: Substance use status: unspecified alcohol-induced disorder Qualified Code(s): F10.29 - Alcohol dependence with unspecified alcohol-induced disorder Nausea and vomiting Qualifiers: Vomiting type: unspecified Vomiting Intractability: non-intractable Qualified Code(s): R11.2 - Nausea with vomiting, unspecified Condition: Fair Disposition: HOME, SELF-CARE Additional Instructions: You need to seek help to discontinue your alcohol and additional substance abuse urgently. Take the Zofran has been sent home with you as needed for nausea. Return to the emergency department if you have persistent vomiting, pass out, have worsening of your pain, or any other symptoms that are worrisome to you.
[2017-03-25 20:48] LABS: ALCOHOL 353 mg/dL (NONE DETECTED)
[2017-03-25 20:49] LABS: APPEARANCE,URINE SLIGHTLY-CLOUDY; BILIRUBIN,URINE SMALL (NEGATIVE); GLUCOSE, URINE 50 mg/dL (NEGATIVE); KETONES,URINE NEGATIVE (NEGATIVE); LEUKOCYTE ESTERASE,URINE NEGATIVE (NEGATIVE); NITRITE,URINE NEGATIVE (NEGATIVE); PROTEIN,URINE >=500 mg/dL (NEGATIVE); URINE SPECIFIC GRAVITY 1.029
--- NOTE | 2017-03-25 20:57 | RADIOLOGY REPORT (SQ) ---
EXAM DESCRIPTION: ACUTE ABDOMEN SERIES COMPLETED DATE/TIME: 03/25/2017 8:42 pm REASON FOR STUDY: abdominal pain COMPARISON: 02/21/2017 NUMBER OF VIEWS: Three views. TECHNIQUE: Frontal chest, supine abdomen and upright/decubitus abdomen radiographic images acquired. LIMITATIONS: None. FINDINGS: CHEST: Lungs clear of infiltrates. FREE AIR: None. No abnormal gas collections. BOWEL GAS PATTERN: Nonobstructive pattern. No dilated loops or air fluid levels. CALCIFICATIONS: No suspicious calcifications. HARDWARE: None in the abdomen. SOFT TISSUES: No gross mass or suggestion of organomegaly. BONES: No acute fracture. No worrisome bone lesions. OTHER: No other significant finding. IMPRESSION: NO RADIOGRAPHIC EVIDENCE FOR ACUTE ABDOMINAL DISEASE. TECHNICAL DOCUMENTATION: JOB ID: [id number] [employer]- All Rights Reserved
[2017-03-25 20:59] LABS: URINE BARBITURATES SCREEN NEGATIVE; URINE METHADONE SCREEN NEGATIVE; URINE OPIATES LOW NEGATIVE; URINE PHENCYCLIDINE SCREEN NEGATIVE
[2017-03-25] MEDS ORDERED: HALOPERIDOL LACTATE INJ 5 MG/1 ML VIAL IV ONE (22:22)
[2017-03-25] MEDS ORDERED: ONDANSETRON ODT 4 MG TAB (6 TAB/DSPK) PO PRN (23:31)
[2017-03-26 00:13] VITALS: BP 142/86
[2017-03-26] MEDS ORDERED: FAMOTIDINE 20 MG TABLET PO ONE (00:15)
[2017-03-26] MEDS ORDERED: LIDOCAINE 2% VISCOUS SOLN 20 ML UDCUP PO ONE (00:15)
[2017-03-26] MEDS ORDERED: MAG HYDROX/AL HYDROX/SIMETH SUSP 30 ML UDCUP PO ONE (00:15)
== END 2017-03-26 00:14 | disposition home or self-care (01) ==
LOC: ER 19:08
DX: R00.0 Tachycardia, unspecified (principal); F10.29 Alcohol dependence with unspecified alcohol-induced disorder; R11.2 Nausea with vomiting, unspecified; R10.84 Generalized abdominal pain; F17.200 Nicotine dependence, unspecified, uncomplicated; F10.239 Alcohol dependence with withdrawal, unspecified; Z88.2 Allergy status to sulfonamides
CPT/HCPCS: 99284; 86900; 86901; 36415; 86850; 80307 ×2; 83690; 85025; 82271; 80053; 81001; 74022; J3360; J1630; J3490; J2765; S0164; J2405; J7030

== ENCOUNTER 2017-05-27 15:46 | Inpatient (IN) | payer SELFPAY ==
[2017-05-27] MEDS ORDERED: ONDANSETRON HCL INJ/PF 4 MG/2 ML SDV IV ONE (16:24)
[2017-05-27] MEDS ORDERED: HYDROMORPHONE HCL INJ/PF 2 MG/ML AMPULE IV ONE (16:24)
[2017-05-27] MEDS ORDERED: NORMAL SALINE 1000 ML 1,000 ML IV ONE (16:24)
--- NOTE | 2017-05-27 16:29 | ER Document Report ---
ED GI Bleed / Rectal Pain - General Chief Complaint: GI Bleeding Stated Complaint: VOMITING Time Seen by Provider: 05/27/17 16:23 Notes: 31 years old male with chronic alcoholism, chronic pancreatitis, cirrhosis of the liver, was having severe abdominal pain since yesterday but he drank alcoholic drinks this morning. Comes to the ER after vomiting blood 1. Complaining abdominal distention and severe diffuse abdominal pain. Associated with nausea. Denies any bloody stool or melena. Denies any fever chills or other constitutional symptoms. TRAVEL OUTSIDE OF THE [place] IN LAST 30 DAYS: No - Related Data Allergies/Adverse Reactions: carisoprodol [From Soma] Allergy (Verified 03/25/17 19:09) Sulfa (Sulfonamide Antibiotics) Allergy (Verified 03/25/17 19:09) Home Medications: Current Home Medications Clonidine HCl [Catapres 0.1 mg Tablet] 0.1 mg PO Q8 05/27/17 [History] Furosemide [Lasix 40 mg Tablet] 40 mg PO QAM 05/27/17 [History] Spironolactone [Aldactone] 50 mg PO Q12 05/27/17 [History] Past Medical History - Social History Smoking Status: Current Every Day Smoker Frequency of alcohol use: Heavy Drug Abuse: Marijuana Family History: CAD, CVA, Hyperlipidemia, Hypertension, Malignancy, Thyroid Disfunction Patient has suicidal ideation: No Patient has homicidal ideation: No - Past Medical History Cardiac Medical History: Reports: Hx Hypercholesterolemia, Hx Hypertension Pulmonary Medical History: Reports: Hx Bronchitis Neurological Medical History: Reports: Hx Cerebrovascular Accident - States he has had a TIA. Denies: Hx Seizures Renal/ Medical History: Denies: Hx Peritoneal Dialysis GI Medical History: Reports: Hx Gastritis, Hx Hepatitis - Hepatitis-C, Hx Ulcer , Hx Endoscopy Musculoskeltal Medical History: Reports Hx Arthritis, Reports Hx Gout, Reports Hx Musculoskeletal Deformity, Reports Hx Musculoskeletal Trauma Psychiatric Medical History: Reports: Hx Anxiety, Hx Bipolar Disorder, Hx Post Traumatic Stress Disorder Denies: Hx Depression Traumatic Medical History: Reports: Hx Fractures - Right hand Infectious Medical History: Reports: Hx Hepatitis - Hepatitis-C Past Surgical History: Reports: Hx Orthopedic Surgery - R hand - Immunizations Immunizations up to date: Yes Hx Diphtheria, Pertussis, Tetanus Vaccination: Yes Review of Systems - Review of Systems Notes: REVIEW OF SYSTEMS: CONSTITUTIONAL : Denies fever, chills, or sweats. Denies recent illness. EENT: Denies eye, ear, throat, or mouth pain or symptoms. Denies nasal or sinus congestion or discharge. Denies throat, tongue, or mouth swelling or difficulty swallowing. CARDIOVASCULAR: Denies chest pain. Denies palpitations or racing or irregular heart beat. Denies ankle edema. RESPIRATORY: Denies cough, cold, or chest congestion. Denies shortness of breath, difficulty breathing, or wheezing. GASTROINTESTINAL: As per history of complaint GENITOURINARY: Denies difficulty urinating, painful urination, burning, frequency, blood in urine, or discharge. MUSCULOSKELETAL: Denies back or neck pain or stiffness. Denies joint pain or swelling. SKIN: Denies rash, lesions or sores. HEMATOLOGIC : Denies easy bruising or bleeding. LYMPHATIC: Denies swollen, enlarged glands. NEUROLOGICAL: Denies confusion or altered mental status. Denies passing out or loss of consciousness. Denies dizziness or lightheadedness. Denies headache. Denies weakness or paralysis or loss of use of either side. Denies problems with gait or speech. Denies sensory loss, numbness, or tingling. Denies seizures. PSYCHIATRIC: Denies anxiety or stress. Denies depression, suicidal ideation, or homicidal ideation. ALL OTHER SYSTEMS REVIEWED AND NEGATIVE. Dictation was performed using [employer] voice recognition software PHYSICAL EXAMINATION: GENERAL: Alcoholic feces, thinning of the skin noted, abdominal distention. HEAD: Atraumatic, normocephalic. EYES: Pupils equal round and reactive to light, extraocular movements intact, sclera anicteric, conjunctiva are normal. ENT: Nares patent, oropharynx clear without exudates. Moist mucous membranes. NECK: Normal range of motion, supple without lymphadenopathy LUNGS: Breath sounds clear to auscultation bilaterally and equal. No wheezes rales or rhonchi. HEART: Regular rate and rhythm without murmurs ABDOMEN: Tense abdomen.Distended, diffusely tender, even with minimal touch he could not tolerate. Musculoskeletal: Normal range of motion, no pitting or edema. No cyanosis. NEUROLOGICAL: Cranial nerves grossly intact. Normal speech, normal gait. Normal sensory, motor exams PSYCH: Normal mood, normal affect. SKIN: Warm, Dry, normal turgor, no rashes or lesions noted. Physical Exam - Vital signs Vitals: Resp Pulse Ox 13 97 05/27/17 16:26 05/27/17 16:26 Course - Re-evaluation Re-evalutation: 05/27/17 19:43 Reevaluated multiple times, he still complaining of abdominal pain. 05/27/17 21:34 His occult blood came back negative, he has been requesting Ativan as well as pain medications. - Vital Signs Vital signs: Temp Pulse Resp BP Pulse Ox 11 L 118/83 98 05/27/17 19:01 05/27/17 19:00 05/27/17 19:01 - Laboratory Result Diagrams: 05/27/17 16:19 05/27/17 16:19 Laboratory results interpreted by me: 05/27/17 05/27/17 05/27/17 16:19 16:19 16:50 RBC 3.88 L Hgb 13.3 L Hct 37.7 L MCH 34.2 H Potassium 3.2 L Chloride 97 L Carbon Dioxide 21 L Anion Gap 26 H BUN < 2 L Creatinine 0.50 L Glucose 241 H Total Bilirubin 2.0 H Direct Bilirubin 1.6 H AST 109 H Alkaline Phosphatase 354 H Ammonia 45.6 H Total Protein 8.6 H - Diagnostic Test Radiology results interpreted by me: 05/27/17 19:44 CT of the abdomen reported by radiologist radiologist was was reviewed - EKG Interpretation by Me EKG shows normal: Sinus rhythm - Sinus tach at the rate of 103 bpm normal axis no acute ST elevation ST depression T-wave inversion noted. Discharge - Discharge Clinical Impression: Hyperammonemia Alcohol withdrawal Qualifiers: Complication of substance-induced condition: uncomplicated Qualified Code(s): F10.230 - Alcohol dependence with withdrawal, uncomplicated Abdominal pain Qualifiers: Abdominal location: generalized Qualified Code(s): R10.84 - Generalized abdominal pain Nausea and vomiting Qualifiers: Vomiting type: hematemesis Qualified Code(s): K92.0 - Hematemesis Alcohol dependence Qualifiers: Substance use status: alcohol-induced anxiety disorder Qualified Code(s): F10.280 - Alcohol dependence with alcohol-induced anxiety disorder Cirrhosis of liver Qualifiers: Hepatic cirrhosis type: alcoholic cirrhosis Ascites presence: without ascites Qualified Code(s): K70.30 - Alcoholic cirrhosis of liver without ascites Condition: Fair Disposition: ADMITTED INPATIENT Admitting Provider: Hospitalist Unit Admitted: Telemetry
[2017-05-27 16:46] LABS: ABSOLUTE BASOPHILS # (AUTO) 0.1 10^3/uL (0.0-0.2); ABSOLUTE LYMPHOCYTES (AUTO) 3.6 10^3/uL (0.5-4.7); ABSOLUTE MONOCYTES (AUTO) 0.5 10^3/uL (0.1-1.4); ABSOLUTE NEUT (AUTO) 5.7 10^3/uL (1.7-8.2); BASOPHILS % (AUTO) 1.1 % (0-2); HEMATOCRIT 37.7 % (37.9-51.0); HEMOGLOBIN 13.3 g/dL (13.5-17.0); HGB HCT DIFFERENCE 2.2; MEAN CORPUSCULAR HEMOGLOBIN 34.2 pg (27.0-33.4); MEAN CORPUSCULAR HGB CONC 35.1 g/dL (32.0-36.0); MEAN CORPUSCULAR VOLUME 97 fl (80-97); RED BLOOD COUNT 3.88 10^6/uL (4.35-5.55); RED CELL DISTRIBUTION WIDTH 13.3 % (11.5-14.0); SEGMENTED NEUTROPHILS % (AUTO) 57.9 % (42-78); WHITE BLOOD COUNT 9.9 10^3/uL (4.0-10.5)
[2017-05-27 17:05] LABS: ALANINE AMINOTRANSFERASE 27 U/L (21-72); ALBUMIN 4.2 g/dL (3.5-5.0); ALKALINE PHOSPHATASE 354 U/L (38-126); ASPARTATE AMINO TRANSFERASE 109 U/L (17-59); BILIRUBIN,DIRECT 1.6 mg/dL (0.0-0.4); BLOOD UREA NITROGEN < 2 mg/dL (7-20); CALCIUM 9.1 mg/dL (8.4-10.2); CHLORIDE 97 mmol/L (98-107); GLUCOSE 241 mg/dL (75-110); LIPASE 72.8 U/L (23-300); POTASSIUM 3.2 mmol/L (3.6-5.0); TOTAL PROTEIN 8.6 g/dL (6.3-8.2)
[2017-05-27 17:12] LABS: CARBON DIOXIDE 21 mmol/L (22-30); SODIUM 143.5 mmol/L (137-145)
[2017-05-27 17:15] LABS: ANION GAP 26 (5-19)
[2017-05-27] MEDS ORDERED: LORAZEPAM INJ 2 MG/1 ML VIAL IV SCH (18:00)
[2017-05-27 18:05] LABS: APPEARANCE,URINE CLEAR; BILIRUBIN,URINE NEGATIVE (NEGATIVE); GLUCOSE, URINE NEGATIVE (NEGATIVE); KETONES,URINE NEGATIVE (NEGATIVE); LEUKOCYTE ESTERASE,URINE NEGATIVE (NEGATIVE); NITRITE,URINE NEGATIVE (NEGATIVE); PROTEIN,URINE NEGATIVE (NEGATIVE); URINE SPECIFIC GRAVITY 1.003; UROBILINOGEN,URINE NEGATIVE mg/dL (<2.0)
--- NOTE | 2017-05-27 18:41 | RADIOLOGY REPORT (SQ) ---
EXAM DESCRIPTION: CT ABD/PELVIS WITH IV ONLY COMPLETED DATE/TIME: 05/27/2017 6:20 pm REASON FOR STUDY: Abdominal pain rule out pancreatitis COMPARISON: 10/23/2016 TECHNIQUE: CT scan of the abdomen and pelvis performed using helical scanning technique with dynamic intravenous contrast injection. No oral contrast. Images reviewed with lung, soft tissue, and bone windows. Reconstructed coronal and sagittal MPR images reviewed. Delayed images for evaluation of the urinary system also acquired. All images stored on PACS. All CT scanners at this facility use dose modulation, iterative reconstruction, and/or weight based d osing when appropriate to reduce radiation dose to as low as reasonably achievable (ALARA). [facility]: Dose Right [facility]: CareDose [facility]: Dose Right [facility]: Teradose 4D [facility]: XO1 CONTRAST TYPE AND DOSE: contrast/concentration: Isovue 370.00 mg/ml; Total Contrast Delivered: 74.0 ml; Total Saline Delivered: 41.0 ml RENAL FUNCTION: Creatinine 0.5 BUN 2 RADIATION DOSE: CT Rad equipment meets quality standard of care and radiation dose reduction techniq ues were employed. CTDIvol: 10.0 - 14.2 mGy. DLP: 1403 mGy-cm.. LIMITATIONS: None. FINDINGS: LOWER CHEST: No significant findings. No nodules or infiltrates. LIVER: Hepatomegaly. SPLEEN: Normal size. No focal lesions. PANCREAS: No masses. No significant calcifications. No adjacent inflammation or peripancreatic fluid collections. Pancreatic duct not dilated. GALLBLADDER: No identified stones by CT criteria. No inflammatory changes to suggest cholecystitis. ADRENAL GLANDS: No significant masses or asymmetry. RIGHT KIDNEY AND URETER: No solid masses. No significant calcifications. No hydronephrosis or hyd roureter. LEFT KIDNEY AND URETER: No solid masses. No significant calcifications. No hydronephrosis or hydr oureter. AORTA AND VESSELS: No aneurysm. No dissection. Renal arteries, SMA, celiac without stenosis. RETROPERITONEUM: No retroperitoneal adenopathy, hemorrhage or masses. BOWEL AND PERITONEAL CAVITY: No masses or inflammatory changes. No free fluid or peritoneal masses. A radiopaque foreign body is present right lower quadrant that has the appearance of a screw within t he small bowel. This is not seen on abdomen radiographs of March 25 2017 APPENDIX: Normal. PELVIS: No mass. No free fluid. Normal bladder. ABDOMINAL WALL: No masses. No hernias. BONES: No significant or acute findings. OTHER: No other significant finding. IMPRESSION: 1. Hepatomegaly. 2. Foreign body appears to be in the small bowel distally. TECHNICAL DOCUMENTATION: JOB ID: [id number] Quality ID # [id number]: Final reports with documentation of one or more dose reduction techniques (e.g., Au tomated exposure control, adjustment of the mA and/or kV according to patient size, use of iterative reconstruction technique) 2010 [employer]- All Rights Reserved
[2017-05-27] MEDS ORDERED: 1/2 NORMAL SALINE 1,000 ML with POTASSIUM CHLORIDE 10 MEQ IV PRN ×2 (19:41)
[2017-05-27] MEDS ORDERED: LANSOPRAZOLE 30 MG TAB.RAP.DR PO ONE (21:41)
[2017-05-27] MEDS ORDERED: DIAZEPAM 5 MG TABLET PO ONE (22:00)
[2017-05-27] MEDS ORDERED: MAGNESIUM SULFATE/D5W 1 GM/100 ML RTUPB IV SCH (22:15)
[2017-05-27] MEDS: SUCRALFATE SUSP 1 GM/10 ML UDCUP PO SCH (23:02)
[2017-05-28] MEDS ORDERED: CLONIDINE HCL 0.1 MG TABLET PO PRN (01:14)
[2017-05-28] MEDS: POTASSI CL 20 MEQ/50 ML RIDER 20 MEQ/50 ML RTUPB IV SCH ×2 (01:31→04:23)
[2017-05-28] MEDS: DIAZEPAM 5 MG TABLET PO SCH ×3 (02:59→14:03)
[2017-05-28] MEDS ORDERED: MAGNESIUM SULFATE/D5W 1 GM/100 ML RTUPB IV ONE (03:37)
[2017-05-28] MEDS ORDERED: NORMAL SALINE 1000 ML 1,000 ML IV PRN (03:47)
[2017-05-28] MEDS ORDERED: PROMETHAZINE HCL 25 MG TABLET PO PRN (03:49)
--- NOTE | 2017-05-28 03:58 | PDOC H&P ---
History of Present Illness Admission Date/PCP: 05/27/17 21:43 History of Present Illness: RAMBO MARTINEZ is a 31 year old male with past medical history of polysubstance abuse, alcohol abuse, upper GI bleed who presents to the emergency department with complaints of abdominal pain. Patient apparently drank 1/5 this morning. He recently got out of rehab he reports. Patient reports that he had bloody emesis 1. Patient has vomited in the emergency department and has not had any further blood in his emesis. Occult blood was also negative. He denies any melena or hematochezia. Patient does request narcotics though. He is referred to the hospitalist service for possible alcohol withdrawal. Patient's medications are currently undergoing reconciliation. Current list is automatically generated by [employer] and does not reflect an accurate description of his medications. Due to the urgent/emergent nature of his condition, he is admitted without a full list. Past Medical History Cardiac Medical History: Reports: Hyperlipidema, Hypertension Pulmonary Medical History: Reports: Bronchitis Neurological Medical History: Denies: Seizures GI Medical History: Reports: Hepatitis - Hepatitis-C Musculoskeltal Medical History: Reports: Arthritis, Gout Psychiatric Medical History: Reports: Bipolar Disorder, Substance Abuse Denies: Depression Past Surgical History Past Surgical History: Reports: Orthopedic Surgery - R hand Social History Smoking Status: Current Every Day Smoker Frequency of Alcohol Use: Heavy Hx Recreational Drug Use: Yes Drugs: Cocaine, Marijuana Hx Prescription Drug Abuse: Yes - Advance Directive Resuscitation Status: Full Code Surrogate healthcare decision maker:: Fela Martinez, mother Family History Family History: CAD, CVA, Hyperlipidemia, Hypertension, Malignancy, Thyroid Disfunction Parental Family History Reviewed: Yes Children Family History Reviewed: NA Sibling(s) Family History Reviewed.: Yes Medication/Allergy Home Medications: Clonidine HCl [Catapres 0.1 mg Tablet] 0.1 mg PO Q8 05/27/17 Furosemide [Lasix 40 mg Tablet] 40 mg PO QAM 05/27/17 Spironolactone [Aldactone] 50 mg PO Q12 05/27/17 Allergies/Adverse Reactions: carisoprodol [From Soma] Allergy (Verified 03/25/17 19:09) Sulfa (Sulfonamide Antibiotics) Allergy (Verified 03/25/17 19:09) Review of Systems Constitutional: ABSENT: chills, fever(s), headache(s), weight gain, weight loss Eyes: ABSENT: visual disturbances Ears: ABSENT: hearing changes Cardiovascular: ABSENT: chest pain, dyspnea on exertion, edema, orthropnea, palpitations Respiratory: ABSENT: cough, hemoptysis Gastrointestinal: PRESENT: abdominal pain, hematemesis, nausea, vomiting. ABSENT: constipation, diarrhea, hematochezia Genitourinary: ABSENT: dysuria, hematuria Musculoskeletal: ABSENT: joint swelling Integumentary: ABSENT: rash, wounds Neurological: ABSENT: abnormal gait, abnormal speech, confusion, dizziness, focal weakness, syncope Psychiatric: ABSENT: anxiety, depression, homidical ideation, suicidal ideation Endocrine: ABSENT: cold intolerance, heat intolerance, polydipsia, polyuria Hematologic/Lymphatic: ABSENT: easy bleeding, easy bruising Physical Exam Vital Signs: Temp Pulse Resp BP Pulse Ox 98.6 F 103 H 16 137/87 H 99 05/28/17 00:23 05/28/17 00:23 05/28/17 00:23 05/28/17 00:23 05/28/17 00:23 Intake & Output 05/26/17 05/27/17 05/28/17 06:59 06:59 06:59 Weight 82 kg General appearance: PRESENT: mild distress, well-developed, well-nourished Head exam: PRESENT: atraumatic, normocephalic Eye exam: PRESENT: conjunctiva pink, EOMI, PERRLA. ABSENT: scleral icterus Ear exam: PRESENT: normal external ear exam Mouth exam: PRESENT: dry mucosa, tongue midline Neck exam: ABSENT: JVD, lymphadenopathy, thyromegaly, tracheal deviation Respiratory exam: PRESENT: clear to auscultation jason. ABSENT: rales, rhonchi, wheezes Cardiovascular exam: PRESENT: RRR, +S1, +S2. ABSENT: diastolic murmur, rubs, systolic murmur Pulses: PRESENT: normal dorsalis pedis pul Vascular exam: PRESENT: normal capillary refill GI/Abdominal exam: PRESENT: guarding - Voluntary, normal bowel sounds, organolmegaly - Hepatomegaly, soft, tenderness - Tenderness is out of proportion to physical exam findings. ABSENT: distended, firm, mass, rebound, rigid Rectal exam: PRESENT: deferred Extremities exam: PRESENT: full ROM. ABSENT: calf tenderness, clubbing, pedal edema Neurological exam: PRESENT: alert, awake, oriented to person, oriented to place , oriented to time, oriented to situation, CN II-XII grossly intact. ABSENT: motor sensory deficit Psychiatric exam: PRESENT: appropriate affect, normal mood. ABSENT: homicidal ideation, suicidal ideation Focused psych exam: PRESENT: restlessness Skin exam: PRESENT: dry, intact, warm. ABSENT: cyanosis, rash Results Laboratory Results: 03/25/17 03/25/17 05/27/17 19:44 20:05 16:19 WBC 9.9 Hgb 13.3 L Plt Count 229 Seg Neutrophils % 57.9 Sodium Potassium Chloride Anion Gap Creatinine Glucose Hemoglobin A1c % Calcium Magnesium Total Bilirubin Direct Bilirubin AST ALT Alkaline Phosphatase Ammonia Total Protein Albumin Lipase U Benzodiazepines Scrn UNCONFIRMED POSITIVE U Marijuana (THC) Screen UNCONFIRMED POSITIVE Serum Alcohol 353 H* 05/27/17 05/27/17 05/27/17 16:19 16:19 16:19 WBC Hgb Plt Count Seg Neutrophils % Sodium 143.5 Potassium 3.2 L Chloride 97 L Anion Gap 26 H Creatinine 0.50 L Glucose 241 H Hemoglobin A1c % 5.0 Calcium 9.1 Magnesium 1.1 L* Total Bilirubin 2.0 H Direct Bilirubin 1.6 H AST 109 H ALT 27 Alkaline Phosphatase 354 H Ammonia Total Protein 8.6 H Albumin 4.2 Lipase 72.8 U Benzodiazepines Scrn U Marijuana (THC) Screen Serum Alcohol 05/27/17 16:50 WBC Hgb Plt Count Seg Neutrophils % Sodium Potassium Chloride Anion Gap Creatinine Glucose Hemoglobin A1c % Calcium Magnesium Total Bilirubin Direct Bilirubin AST ALT Alkaline Phosphatase Ammonia 45.6 H Total Protein Albumin Lipase U Benzodiazepines Scrn U Marijuana (THC) Screen Serum Alcohol Impressions: Abdomen/Pelvis CT 05/27/17 16:24 IMPRESSION: 1. Hepatomegaly. 2. Foreign body appears to be in the small bowel distally. Status: Imported from PACS Assessment & Plan - Diagnosis (1) Foreign body in small intestine, initial encounter Is this a current diagnosis for this admission?: Yes Plan: Will give lactulose and repeat KUB in the morning Have discussed this with the surgeon who reports that he is available if the patient clinically worsens. (2) Alcohol dependence Qualifiers: Substance use status: alcohol-induced anxiety disorder Qualified Code(s): F10.280 - Alcohol dependence with alcohol-induced anxiety disorder Is this a current diagnosis for this admission?: Yes Plan: Monitor patient on telemetry for arrhythmia. Check magnesium. Scheduled po Valium. PRN IV Ativan for withdrawal symptoms. Place on thiamine, folic acid. Monitor for worsening symptomatology (3) Cirrhosis of liver Qualifiers: Hepatic cirrhosis type: alcoholic cirrhosis Ascites presence: without ascites Qualified Code(s): K70.30 - Alcoholic cirrhosis of liver without ascites Is this a current diagnosis for this admission?: Yes (4) Hyperammonemia Is this a current diagnosis for this admission?: Yes Plan: Place patient on lactulose (5) Substance abuse Is this a current diagnosis for this admission?: Yes Plan: Avoid the use of narcotic pain medications (6) Marijuana use Is this a current diagnosis for this admission?: Yes Plan: Advised to stop (7) Tobacco abuse Is this a current diagnosis for this admission?: Yes Plan: Patient is advised to stop using tobacco. (8) Hypomagnesemia Is this a current diagnosis for this admission?: Yes Plan: Monitor on telemetry with concern for arrhythmia. Replete and recheck (9) Hypokalemia Is this a current diagnosis for this admission?: Yes Plan: Monitor on telemetry with concern for arrhythmia. Replete and recheck (10) Metabolic acidosis Is this a current diagnosis for this admission?: Yes Plan: Secondary to ethanol. - Time Time Spent: 30 to 50 Minutes Medications reviewed and adjusted accordingly: Yes Anticipated discharge: Home - Inpatient Certification Based on my medical assessment, after consideration of the patient's comorbidities, presenting symptoms, or acuity I expect that the services needed warrant INPATIENT care.: Yes I certify that my determination is in accordance with my understanding of Medicare's requirements for reasonable and necessary INPATIENT services [42 CFR 412.3e].: Yes Medical Necessity: Need For Continuous Telemetry Monitoring Post Hospital Care: D/C Transfill Technician Documentation
[2017-05-28] MEDS: SUCRALFATE SUSP 1 GM/10 ML UDCUP PO SCH ×3 (04:20→21:16)
--- NOTE | 2017-05-28 05:43 | EKG REPORT ---
SEVERITY:- ABNORMAL ECG - SINUS TACHYCARDIA BORDERLINE T WAVE ABNORMALITIES PROLONGED QT INTERVAL : Confirmed by: Braden Elias 28-May-2017 05:42:40
[2017-05-28] MEDS: ONDANSETRON HCL INJ/PF 4 MG/2 ML SDV IV PRN (05:57)
[2017-05-28] MEDS: LACTULOSE SYRUP 20 GM/30 ML UDCUP PO SCH ×2 (05:57→14:06)
[2017-05-28] MEDS: LORAZEPAM INJ 2 MG/1 ML VIAL IV PRN ×3 (05:58→16:18)
[2017-05-28] MEDS: LANSOPRAZOLE 30 MG TAB.RAP.DR PO SCH ×2 (05:58→18:19)
--- NOTE | 2017-05-28 07:25 | RADIOLOGY REPORT (SQ) ---
EXAM DESCRIPTION: KUB/ABDOMEN (SINGLE VIEW) CLINICAL HISTORY: FB in distal small bowel COMPARISON: 05/27/2017 FINDINGS: Single view of the abdomen. Radiopaque foreign body overlying the right lower quadrant in the region of the distal small bowel or cecum. No free intraperitoneal air. Nonobstructive bowel gas pattern. IMPRESSION: 1. Radiopaque foreign body in the right lower abdomen bowel or cecum. 2. Nonobstructive bowel gas pattern.
[2017-05-28] MEDS ORDERED: POTASSIUM CHLORIDE 20 MEQ/50 ML RTU IV ONE (09:00)
[2017-05-28] MEDS: NICOTINE 21 MG/24 HR PATCH.TD24 TD SCH (09:58)
[2017-05-28] MEDS ORDERED: MAGNESIUM SULFATE 4 GM/100 ML RTUPB IV ONE (10:00)
[2017-05-28] MEDS: THIAMINE HCL 100 MG TABLET PO SCH (10:14)
[2017-05-28] MEDS: MAGNESIUM SULFATE/D5W 1 GM/100 ML RTUPB IV SCH ×4 (10:15→14:05)
[2017-05-28] MEDS: FOLIC ACID 1 MG TABLET PO SCH (10:15)
[2017-05-28] MEDS: LORAZEPAM 1 MG TABLET PO PRN (14:38)
[2017-05-28] MEDS ORDERED: SUCRALFATE SUSP 1 GM/10 ML UDCUP PO ONE (15:00)
[2017-05-28] MEDS: LORAZEPAM 1 MG TABLET PO SCH ×2 (18:19→21:16)
--- NOTE | 2017-05-28 18:50 | PDOC PROGRESS REPORT ---
Subjective Progress Note for:: 05/28/17 Reason For Visit: ALCOHOL WITHDRAW SYNDROME; ABDOMINAL PAIN Old male with a history of heavy alcohol abuse who presented to the hospital with nausea vomiting and abdominal pain. He has been drinking liquor nonstop for the past few days and has not been eating or drinking anything. He was found to have hypomagnesemia and was treated with Valium and Ativan for possible withdrawal. We will continue symptomatic treatment. He has been to detox programs but has never been to inpatient rehab in the past. He denies any depression or suicidal ideation or intention. The patient has had no further episodes of nausea or vomiting. Denies fevers or chills. Physical Exam Vital Signs: Temp Pulse Resp BP Pulse Ox 98.7 F 91 16 121/73 100 05/28/17 16:46 05/28/17 16:46 05/28/17 16:46 05/28/17 16:46 05/28/17 16:46 Intake & Output 05/27/17 05/28/17 05/29/17 06:59 06:59 06:59 Intake Total 285 600 Balance 285 600 Weight 82 kg Additional comments: Disheveled appearing young male lying in bed not in acute distress HEENT: Pupils reactive to light moist pink oropharyngeal mucosa with no lesions no icterus no pallor Lungs: Clear to auscultation bilaterally normal respiratory effort Chest wall: No deformity Cardiac: S1-S2 regular no peripheral edema no cyanosis no calf tenderness Abdomen: Soft, positive right upper quadrant tenderness no thrill, bowel sounds normal Rectal exam deferred Skin: Warm and dry Neurologic: Awake and alert oriented 3 no tremors no facial droop speech is clear and fluent. Results Impressions: Abdomen/Pelvis CT 05/27/17 16:24 IMPRESSION: 1. Hepatomegaly. 2. Foreign body appears to be in the small bowel distally. KUB X-Ray 05/28/17 06:00 IMPRESSION: 1. Radiopaque foreign body in the right lower abdomen bowel or cecum. 2. Nonobstructive bowel gas pattern. Assessment & Plan - Diagnosis (1) Abdominal pain Qualifiers: Abdominal location: generalized Qualified Code(s): R10.84 - Generalized abdominal pain Is this a current diagnosis for this admission?: Yes (2) Alcohol dependence Qualifiers: Substance use status: alcohol-induced anxiety disorder Qualified Code(s): F10.280 - Alcohol dependence with alcohol-induced anxiety disorder Is this a current diagnosis for this admission?: Yes (3) Alcohol withdrawal Qualifiers: Complication of substance-induced condition: uncomplicated Qualified Code(s ): F10.230 - Alcohol dependence with withdrawal, uncomplicated (4) Cirrhosis of liver Qualifiers: Hepatic cirrhosis type: alcoholic cirrhosis Ascites presence: without ascites Qualified Code(s): K70.30 - Alcoholic cirrhosis of liver without ascites Is this a current diagnosis for this admission?: Yes (5) Foreign body in small intestine, initial encounter Is this a current diagnosis for this admission?: Yes (6) Hyperammonemia Is this a current diagnosis for this admission?: Yes (7) Hypokalemia Is this a current diagnosis for this admission?: Yes (8) Hypomagnesemia Is this a current diagnosis for this admission?: Yes - Time Time Spent with patient: 25-34 minutes - Plan Summary Plan Summary: Continue Ativan scheduled and as needed. Replete electrolytes He has a foreign body in the area of the appendix which is most likely a swallowed tongue ring. No evidence of perforation. No overt bleeding. I will get an ultrasound of the abdomen. Continue lactulose to have 3-4 bowel movements a day.
[2017-05-29] MEDS: LORAZEPAM 1 MG TABLET PO PRN ×6 (00:02→22:05)
[2017-05-29] MEDS: ONDANSETRON HCL INJ/PF 4 MG/2 ML SDV IV PRN (00:02)
[2017-05-29] MEDS: LORAZEPAM INJ 2 MG/1 ML VIAL IV PRN ×4 (02:07→15:40)
--- NOTE | 2017-05-29 06:51 | RADIOLOGY REPORT (SQ) ---
EXAM DESCRIPTION: U/S ABDOMEN COMPLETE W/DOPPLER CLINICAL HISTORY: Cirrhosis, abdominal pain, r/o portal vein thrombo COMPARISON: None. TECHNIQUE: Real-time sonographic images of the abdomen were obtained using a curved multihertz transducer. FINDINGS: The visualized portions of the pancreas are unremarkable. The visualized portions of the aorta and IVC are unremarkable. The liver has normal contour and echogenicity. The common bile duct measures 0.5 cm. Hepatopedal flow in the portal vein. Gallbladder wall thickening. No gallstones identified. The right kidney measures 11.7 cm in length. The left kidney measures 11.9 cm in length. No solid renal mass, shadowing renal calculi, or hydronephrosis. The spleen measures 11.2 cm in length.No abnormality of the spleen identified. IMPRESSION: 1. Gallbladder wall thickening. This could be related to acalculous cholecystitis, inflammation of the adjacent structures, or hypoproteinemia. Correlation with HIDA scan may be beneficial if there is concern for acute acalculous cholecystitis. 2. No evidence of portal venous thrombosis by ultrasound criteria.
[2017-05-29] MEDS: LANSOPRAZOLE 30 MG TAB.RAP.DR PO SCH ×2 (06:58→16:47)
[2017-05-29] MEDS: SUCRALFATE SUSP 1 GM/10 ML UDCUP PO SCH ×4 (07:31→21:03)
[2017-05-29 10:25] LABS: ABSOLUTE BASOPHILS # (AUTO) 0.1 10^3/uL (0.0-0.2); ABSOLUTE MONOCYTES (AUTO) 0.2 10^3/uL (0.1-1.4); ABSOLUTE NEUT (AUTO) 2.5 10^3/uL (1.7-8.2); BASOPHILS % (AUTO) 1.6 % (0-2); EOSINOPHILS % (AUTO) 0.9 % (0-6); HEMATOCRIT 33.7 % (37.9-51.0); HEMOGLOBIN 11.8 g/dL (13.5-17.0); HGB HCT DIFFERENCE 1.7; LYMPHOCYTES % (AUTO) 26.8 % (13-45); MEAN CORPUSCULAR HEMOGLOBIN 33.7 pg (27.0-33.4); MEAN CORPUSCULAR HGB CONC 35.1 g/dL (32.0-36.0); MEAN CORPUSCULAR VOLUME 96 fl (80-97); MONOCYTES % (AUTO) 6.1 % (3-13); RED BLOOD COUNT 3.51 10^6/uL (4.35-5.55); RED CELL DISTRIBUTION WIDTH 13.1 % (11.5-14.0); SEGMENTED NEUTROPHILS % (AUTO) 64.6 % (42-78); WHITE BLOOD COUNT 3.9 10^3/uL (4.0-10.5)
[2017-05-29] MEDS: LORAZEPAM 1 MG TABLET PO SCH ×4 (10:38→21:03)
[2017-05-29] MEDS: FOLIC ACID 1 MG TABLET PO SCH (10:38)
[2017-05-29] MEDS: THIAMINE HCL 100 MG TABLET PO SCH (10:38)
[2017-05-29] MEDS: NICOTINE 21 MG/24 HR PATCH.TD24 TD SCH (10:39)
[2017-05-29 10:43] LABS: ALANINE AMINOTRANSFERASE 32 U/L (21-72); ALBUMIN 3.6 g/dL (3.5-5.0); ALKALINE PHOSPHATASE 313 U/L (38-126); ANION GAP 11 (5-19); ASPARTATE AMINO TRANSFERASE 93 U/L (17-59); BILIRUBIN,TOTAL 3.1 mg/dL (0.2-1.3); BLOOD UREA NITROGEN < 2 mg/dL (7-20); CALCIUM 8.8 mg/dL (8.4-10.2); CARBON DIOXIDE 28 mmol/L (22-30); CHLORIDE 101 mmol/L (98-107); GLUCOSE 103 mg/dL (75-110); MAGNESIUM 1.6 mg/dL (1.6-2.3); PHOSPHORUS 3.8 mg/dL (2.5-4.5); POTASSIUM 3.9 mmol/L (3.6-5.0); SODIUM 139.6 mmol/L (137-145); TOTAL PROTEIN 7.6 g/dL (6.3-8.2)
--- NOTE | 2017-05-29 12:23 | PDOC PROGRESS REPORT ---
Subjective Progress Note for:: 05/29/17 Reason For Visit: ALCOHOL WITHDRAW SYNDROME; ABDOMINAL PAIN 31-year-old male with 3 of heavy alcohol use presented to the hospital with abdominal pain nausea and vomiting. He reported hematemesis. Abdominal imaging showed a foreign body in the area of the appendix but no evidence of perforation. He admits to possibly having swallowed his tongue piercing. Ultrasound of the abdomen showed thickening of the gallbladder wall. HIDA scan has been ordered stat. We will start him on some Invanz. Surgical consultation appreciated. We will continue to monitor closely. He is doing well with the scheduled and as needed Ativan and has not had any signs or symptoms of alcohol withdrawal. Physical Exam Vital Signs: Temp Pulse Resp BP Pulse Ox 98.6 F 93 16 100/75 100 05/29/17 08:23 05/29/17 08:23 05/29/17 08:23 05/29/17 08:23 05/29/17 08:23 Intake & Output 05/28/17 05/29/17 05/30/17 06:59 06:59 06:59 Intake Total 285 1080 Output Total 650 Balance 285 430 Weight 82 kg Additional comments: Young male lying in bed not in acute distress Lungs: Clear to auscultation bilaterally normal respiratory effort Cardiac: S1-S2 regular no peripheral edema no cyanosis no calf tenderness Abdomen: Soft, positive tenderness especially in the right upper quadrant, no free fluid, normal bowel sounds N: Warm and dry Neurologic: Awake and alert oriented 3 no facial droop speech is clear and fluent Results Laboratory Results: 05/29/17 10:16 05/29/17 10:16 05/29/17 05/29/17 10:16 10:16 WBC 3.9 L RBC 3.51 L Hgb 11.8 L Hct 33.7 L MCV 96 MCH 33.7 H MCHC 35.1 RDW 13.1 Plt Count 131 L Seg Neutrophils % 64.6 Lymphocytes % 26.8 Monocytes % 6.1 Eosinophils % 0.9 Basophils % 1.6 Absolute Neutrophils 2.5 Absolute Lymphocytes 1.0 Absolute Monocytes 0.2 Absolute Eosinophils 0.0 Absolute Basophils 0.1 Sodium 139.6 Potassium 3.9 Chloride 101 Carbon Dioxide 28 Anion Gap 11 BUN < 2 L Creatinine 0.60 Est GFR ( Amer) > 60 Est GFR (Non-Af Amer) > 60 Glucose 103 Calcium 8.8 Phosphorus 3.8 Magnesium 1.6 Total Bilirubin 3.1 H AST 93 H ALT 32 Alkaline Phosphatase 313 H Total Protein 7.6 Albumin 3.6 Impressions: Abdomen/Pelvis CT 05/27/17 16:24 IMPRESSION: 1. Hepatomegaly. 2. Foreign body appears to be in the small bowel distally. KUB X-Ray 05/28/17 06:00 IMPRESSION: 1. Radiopaque foreign body in the right lower abdomen bowel or cecum. 2. Nonobstructive bowel gas pattern. Abdomen Ultrasound 05/29/17 00:00 IMPRESSION: 1. Gallbladder wall thickening. This could be related to acalculous cholecystitis, inflammation of the adjacent structures, or hypoproteinemia. Correlation with HIDA scan may be beneficial if there is concern for acute acalculous cholecystitis. 2. No evidence of portal venous thrombosis by ultrasound criteria. Assessment & Plan - Diagnosis (1) Abdominal pain Qualifiers: Abdominal location: generalized Qualified Code(s): R10.84 - Generalized abdominal pain Is this a current diagnosis for this admission?: Yes (2) Cholecystitis Is this a current diagnosis for this admission?: Yes (3) Alcohol dependence Qualifiers: Substance use status: alcohol-induced anxiety disorder Qualified Code(s): F10.280 - Alcohol dependence with alcohol-induced anxiety disorder Is this a current diagnosis for this admission?: Yes (4) Alcohol withdrawal Qualifiers: Complication of substance-induced condition: uncomplicated Qualified Code(s ): F10.230 - Alcohol dependence with withdrawal, uncomplicated (5) Foreign body in small intestine, initial encounter Is this a current diagnosis for this admission?: Yes (6) Hyperammonemia Is this a current diagnosis for this admission?: Yes (7) Hypokalemia Is this a current diagnosis for this admission?: Yes (8) Hypomagnesemia Is this a current diagnosis for this admission?: Yes - Time Time Spent with patient: 35 or more minutes - Plan Summary Plan Summary: Invanz started Replete magnesium Continue Ativan and lactulose Monitor labs and electrolytes HIDA scan pending.
--- NOTE | 2017-05-29 12:46 | PDOC CONSULTATION ---
Consultation Consult Date: 05/29/17 Attending physician:: IFEOMA CLANCY Consult reason:: GB disease History of Present Illness Admission Date/PCP: 05/27/17 21:43 History of Present Illness: RAMBO MARTINEZ is a 31 year old male with past medical history of polysubstance abuse, alcohol abuse, upper GI bleed who presents to the emergency department with complaints of abdominal pain. Patient apparently drank 1/5 this morning. He recently got out of rehab he reports. Patient reports that he had bloody emesis 1. Patient has vomited in the emergency department and has not had any further blood in his emesis. Occult blood was also negative. He denies any melena or hematochezia. Patient does request narcotics. He is referred to the hospitalist service for possible alcohol withdrawal. Patient states he has no history of gallbladder disease. His primary on the right upper quadrant radiating to the back although his entire abdomen hurts. Liver function studies have historically been elevated. Gallbladder ultrasonography 06/01/2017 shows gallbladder wall thickening normal common bile duct and normal portal vein flow. Gallbladder ultrasound from October 2016 shows normal gallbladder wall thickness CT scan of the abdomen and pelvis without oral contrast shows a distended gallbladder, no edema no pericholecystic fluid or stranding. Past Medical History Cardiac Medical History: Reports: Hyperlipidema, Hypertension Pulmonary Medical History: Reports: Bronchitis Neurological Medical History: Denies: Seizures GI Medical History: Reports: Hepatitis - Hepatitis-C Musculoskeltal Medical History: Reports: Arthritis, Gout Psychiatric Medical History: Reports: Bipolar Disorder, Post Traumatic Stress Disorder, Substance Abuse Denies: Depression Past Surgical History Past Surgical History: Reports: Orthopedic Surgery - R hand Social History Smoking Status: Current Every Day Smoker Frequency of Alcohol Use: Heavy Hx Recreational Drug Use: Yes Drugs: Cocaine, Marijuana Hx Prescription Drug Abuse: Yes - Advance Directive Resuscitation Status: Full Code Family History Family History: CAD, CVA, Hyperlipidemia, Hypertension, Malignancy, Thyroid Disfunction Parental Family History Reviewed: Yes Children Family History Reviewed: Yes Sibling(s) Family History Reviewed.: Yes Medication/Allergy Home Medications: Clonidine HCl [Catapres 0.1 mg Tablet] 0.1 mg PO Q8 05/27/17 Allergies/Adverse Reactions: carisoprodol [From Soma] Allergy (Verified 03/25/17 19:09) Sulfa (Sulfonamide Antibiotics) Allergy (Verified 03/25/17 19:09) Review of Systems Constitutional: PRESENT: other - Patient denies fever chills Eyes: ABSENT: visual disturbances Ears: ABSENT: hearing changes Cardiovascular: ABSENT: chest pain, dyspnea on exertion, edema, orthropnea, palpitations Gastrointestinal: PRESENT: other - Mild shortness of Physical Exam Vital Signs: Temp Pulse Resp BP Pulse Ox 98.6 F 93 16 100/75 100 05/29/17 08:23 05/29/17 08:23 05/29/17 08:23 05/29/17 08:23 05/29/17 08:23 Intake & Output 05/28/17 05/29/17 05/30/17 06:59 06:59 06:59 Intake Total 285 1080 Output Total 650 Balance 285 430 Weight 82 kg General appearance: PRESENT: mild distress, other - Very glazed over look Head exam: PRESENT: normocephalic Eye exam: PRESENT: EOMI Mouth exam: PRESENT: dry mucosa Neck exam: PRESENT: full ROM Respiratory exam: PRESENT: wheezes - Pain bilaterally Cardiovascular exam: PRESENT: RRR Pulses: PRESENT: normal carotid pulses GI/Abdominal exam: PRESENT: other - The abdomen is slightly distended, hypoactive bowel sounds. There is tenderness in the right upper quadrant with guarding. Rigidity. Rectal exam: PRESENT: deferred Neurological exam: PRESENT: alert, altered, awake Results Laboratory Results: 05/29/17 10:16 05/29/17 10:16 05/29/17 05/29/17 10:16 10:16 WBC 3.9 L RBC 3.51 L Hgb 11.8 L Hct 33.7 L MCV 96 MCH 33.7 H MCHC 35.1 RDW 13.1 Plt Count 131 L Seg Neutrophils % 64.6 Lymphocytes % 26.8 Monocytes % 6.1 Eosinophils % 0.9 Basophils % 1.6 Absolute Neutrophils 2.5 Absolute Lymphocytes 1.0 Absolute Monocytes 0.2 Absolute Eosinophils 0.0 Absolute Basophils 0.1 Sodium 139.6 Potassium 3.9 Chloride 101 Carbon Dioxide 28 Anion Gap 11 BUN < 2 L Creatinine 0.60 Est GFR ( Amer) > 60 Est GFR (Non-Af Amer) > 60 Glucose 103 Calcium 8.8 Phosphorus 3.8 Magnesium 1.6 Total Bilirubin 3.1 H AST 93 H ALT 32 Alkaline Phosphatase 313 H Total Protein 7.6 Albumin 3.6 Impressions: Abdomen/Pelvis CT 05/27/17 16:24 IMPRESSION: 1. Hepatomegaly. 2. Foreign body appears to be in the small bowel distally. KUB X-Ray 05/28/17 06:00 IMPRESSION: 1. Radiopaque foreign body in the right lower abdomen bowel or cecum. 2. Nonobstructive bowel gas pattern. Abdomen Ultrasound 05/29/17 00:00 IMPRESSION: 1. Gallbladder wall thickening. This could be related to acalculous cholecystitis, inflammation of the adjacent structures, or hypoproteinemia. Correlation with HIDA scan may be beneficial if there is concern for acute acalculous cholecystitis. 2. No evidence of portal venous thrombosis by ultrasound criteria. Assessment & Plan - Diagnosis (1) Cholecystitis Is this a current diagnosis for this admission?: Yes Plan: Clinically and radiographically the patient has findings concerning for cholecystitis, acalculous. Physical examination [place] due to known fatty infiltration of the liver, alcohol abuse etc. Furthermore liver function studies are chronically elevated in the current range with the total bilirubin of 3.1, and alkaline phosphatase moderately elevated. Recommendations: 1. Agree with keeping patient n.p.o. 2. I agree with initiation of intravenous antibiotics. Patient is immunocompromised due to chronic alcohol abuse and malnutrition, therefore at increased risk for sepsis. 3. Agree with plans for HIDA scan to ascertain if in fact the gallbladder is emptying. HIDA abnormal, patient will likely benefit from laparoscopic, possible open cholecystectomy this admission. 4. We will check coagulation parameters. (2) Alcohol withdrawal Qualifiers: Complication of substance-induced condition: uncomplicated Qualified Code(s ): F10.230 - Alcohol dependence with withdrawal, uncomplicated Is this a current diagnosis for this admission?: Yes (3) Elevated liver function tests Is this a current diagnosis for this admission?: Yes (4) Fatty liver Is this a current diagnosis for this admission?: Yes - Time Time Spent: 50 to 70 Minutes Smoking Cessation Education: over 10 minutes Anticipated discharge: Home - Inpatient Certification Medical Necessity: Need For IV Fluids, Need for Pain Control, Need for IV Antibiotics, Need for Surgery
[2017-05-29] MEDS ORDERED: LACTULOSE SYRUP 20 GM/30 ML UDCUP PO ONE (13:00)
[2017-05-29] MEDS: MAGNESIUM SULFATE/D5W 1 GM/100 ML RTUPB IV SCH ×2 (15:39→16:47)
[2017-05-29] MEDS: ERTAPENEM SODIUM 1 GM in NORMAL SALINE 50 ML IV SCH (15:39)
--- NOTE | 2017-05-29 15:52 | RADIOLOGY REPORT (SQ) ---
EXAM DESCRIPTION: NM HIDA SCAN WITH CCK COMPLETED DATE/TIME: 05/29/2017 3:38 pm REASON FOR STUDY: Concern for cholecystitis COMPARISON: Abdominal ultrasound 10/23/2016, 05/29/2017 CT abdomen pelvis 10/23/2016, 05/27/2017 RADIONUCLIDE AND DOSE: DOSAGE RADIONUCLIDE: 5.5 millicuries Tc99m Mebrofenin. DOSAGE CCK: 1.6 micrograms. DOSAGE MORPHINE: Not required. The route of agent administration: Intravenous TECHNIQUE: Serial imaging right upper quadrant up to 60 minutes following injection of radionuclide. CCK injected after gallbladder visualized. LIMITATIONS: None. FINDINGS: LIVER: There is uptake throughout the liver which persists at 60 minutes. This indicates diffuse hepatocellular dysfunction. INTRAHEPATIC BILE DUCTS: Visualized at 20 minutes COMMON BILE DUCT: Visualized at 20 minutes GALLBLADDER: Accumulation of activity by 60 minutes in the gallbladder. Calculated ejection fractio n of 17%. Normal range is greater than 35%. PHYSICAL RESPONSE: Patients presenting complaint was not reproduced. OTHER: No other significant finding. IMPRESSION: No scintigraphic evidence of cystic duct or common duct obstruction Depressed gallbladder ejection fraction. IV CCK did not reproduce his symptoms Abnormal hepatic function, hepatobiliary agent did not completely clear from the liver by 60 minutes. This indicates diffuse hepatocellular dysfunction TECHNICAL DOCUMENTATION: JOB ID: [id number] [employer]- All Rights Reserved
[2017-05-29 16:50] LABS: PROTHROMBIN TIME 15.1 SEC (11.4-15.4)
[2017-05-29 16:51] LABS: PARTIAL THROMBOPLASTIN TIME 34.9 SEC (23.5-35.8)
[2017-05-30] MEDS: LORAZEPAM 1 MG TABLET PO PRN ×3 (02:01→16:30)
[2017-05-30] MEDS: LANSOPRAZOLE 30 MG TAB.RAP.DR PO SCH ×2 (05:02→16:30)
[2017-05-30 06:34] LABS: ABSOLUTE LYMPHOCYTES (AUTO) 1.1 10^3/uL (0.5-4.7); ABSOLUTE MONOCYTES (AUTO) 0.2 10^3/uL (0.1-1.4); ABSOLUTE NEUT (AUTO) 2.8 10^3/uL (1.7-8.2); BASOPHILS % (AUTO) 0.9 % (0-2); EOSINOPHILS % (AUTO) 1.1 % (0-6); HEMATOCRIT 34.4 % (37.9-51.0); HEMOGLOBIN 12.1 g/dL (13.5-17.0); HGB HCT DIFFERENCE 1.9; LYMPHOCYTES % (AUTO) 26.9 % (13-45); MEAN CORPUSCULAR HEMOGLOBIN 33.9 pg (27.0-33.4); MEAN CORPUSCULAR HGB CONC 35.4 g/dL (32.0-36.0); MEAN CORPUSCULAR VOLUME 96 fl (80-97); MONOCYTES % (AUTO) 5.1 % (3-13); RED BLOOD COUNT 3.58 10^6/uL (4.35-5.55); RED CELL DISTRIBUTION WIDTH 13.3 % (11.5-14.0); WHITE BLOOD COUNT 4.3 10^3/uL (4.0-10.5)
[2017-05-30 06:41] LABS: ALANINE AMINOTRANSFERASE 30 U/L (21-72); ALBUMIN 3.7 g/dL (3.5-5.0); ALKALINE PHOSPHATASE 307 U/L (38-126); ANION GAP 14 (5-19); ASPARTATE AMINO TRANSFERASE 108 U/L (17-59); BILIRUBIN,DIRECT 2.3 mg/dL (0.0-0.4); BILIRUBIN,TOTAL 3.4 mg/dL (0.2-1.3); BLOOD UREA NITROGEN 2 mg/dL (7-20); CALCIUM 8.9 mg/dL (8.4-10.2); CARBON DIOXIDE 25 mmol/L (22-30); CHLORIDE 102 mmol/L (98-107); CREATININE RESULT 0.58 mg/dL (0.52-1.25); GLUCOSE 80 mg/dL (75-110); MAGNESIUM 1.6 mg/dL (1.6-2.3); PHOSPHORUS 4.4 mg/dL (2.5-4.5); POTASSIUM 3.6 mmol/L (3.6-5.0); SODIUM 141.1 mmol/L (137-145); TOTAL PROTEIN 7.5 g/dL (6.3-8.2)
[2017-05-30] MEDS: SUCRALFATE SUSP 1 GM/10 ML UDCUP PO SCH ×3 (07:55→15:50)
[2017-05-30] MEDS: LORAZEPAM INJ 2 MG/1 ML VIAL IV PRN ×3 (07:56→15:50)
[2017-05-30] MEDS ORDERED: LACTULOSE SYRUP 20 GM/30 ML UDCUP PO SCH (10:00)
[2017-05-30] MEDS: MAGNESIUM OXIDE 400 MG TABLET PO SCH ×2 (10:07→17:43)
[2017-05-30] MEDS: MAGNESIUM SULFATE/D5W 1 GM/100 ML RTUPB IV SCH ×2 (10:07→11:49)
[2017-05-30] MEDS: FOLIC ACID 1 MG TABLET PO SCH (10:08)
[2017-05-30] MEDS: THIAMINE HCL 100 MG TABLET PO SCH (10:08)
[2017-05-30] MEDS: LORAZEPAM 1 MG TABLET PO SCH ×3 (10:08→17:43)
[2017-05-30] MEDS: NICOTINE 21 MG/24 HR PATCH.TD24 TD SCH (10:09)
[2017-05-30] MEDS ORDERED: ONDANSETRON HCL INJ/PF 4 MG/2 ML SDV IV PRN (11:30)
[2017-05-30] MEDS: ERTAPENEM SODIUM 1 GM in NORMAL SALINE 50 ML IV SCH (14:24)
--- NOTE | 2017-05-30 18:33 | PDOC DISCHARGE SUMMARY ---
General - Admit/Disc Date/PCP Admission Date/Primary Care Provider: 05/27/17 21:43 None at present, patient to establish care at the [facility] Discharge Date: 05/30/17 - Discharge Diagnosis (1) Abdominal pain Is this a current diagnosis for this admission?: Yes (2) Cholecystitis Is this a current diagnosis for this admission?: Yes (3) Alcohol dependence Is this a current diagnosis for this admission?: Yes (4) Alcohol withdrawal Is this a current diagnosis for this admission?: Yes (5) Foreign body in small intestine, initial encounter Is this a current diagnosis for this admission?: Yes (6) Hyperammonemia Is this a current diagnosis for this admission?: Yes (7) Hypokalemia Is this a current diagnosis for this admission?: Yes (8) Hypomagnesemia Is this a current diagnosis for this admission?: Yes - Additional Information Resuscitation Status: Full Code Discharge Diet: Other (Comments) - Low fat Prescriptions: RX: Ciprofloxacin HCl [Cipro 500 mg Tablet] 500 mg PO Q12 7 Days #14 tablet RX: Folic Acid [Folvite 1 mg Tablet] 1 mg PO DAILY #30 tablet RX: Lorazepam [Ativan 1 mg Tablet] 2 mg PO QID #12 tablet Lorazepam [Ativan 1 mg Tablet] 2 mg PO TID #9 tablet Lorazepam [Ativan 1 mg Tablet] 2 mg PO BID #6 tablet RX: Magnesium Oxide [Mag-Ox 400 mg Tablet] 400 mg PO DAILY #30 tablet RX: Metronidazole [Flagyl 500 mg Tablet] 500 mg PO Q8 7 Days #21 tablet RX: Nicotine [Nicoderm 21 mg/24 Hr Transderm Patch] 1 each TD DAILY #30 patch.td24 RX: Thiamine HCl [Thiamine 100 mg Tablet] 100 mg PO DAILY #30 tablet Home Medications: RX: Clonidine HCl [Catapres 0.1 mg Tablet] 0.1 mg PO Q8 05/27/17 Lorazepam [Ativan 1 mg Tablet] 2 mg PO BID #6 tablet 05/30/17 Lorazepam [Ativan 1 mg Tablet] 2 mg PO TID #9 tablet 05/30/17 RX: Ciprofloxacin HCl [Cipro 500 mg Tablet] 500 mg PO Q12 7 Days #14 tablet RX: Folic Acid [Folvite 1 mg Tablet] 1 mg PO DAILY #30 tablet 05/30/17 RX: Lactulose [Cephulac Syrup 20 gm/30 ml Udcup] 10 gm PO DAILY udc 05/30/17 RX: Lorazepam [Ativan 1 mg Tablet] 2 mg PO QID #12 tablet 05/30/17 RX: Magnesium Oxide [Mag-Ox 400 mg Tablet] 400 mg PO DAILY #30 tablet 05/30/17 RX: Metronidazole [Flagyl 500 mg Tablet] 500 mg PO Q8 7 Days #21 tablet RX: Nicotine [Nicoderm 21 mg/24 Hr Transderm Patch] 1 each TD DAILY #30 patch.td24 05/30/17 RX: Thiamine HCl [Thiamine 100 mg Tablet] 100 mg PO DAILY #30 tablet 05/30/17 Additional Information: Suspected acalculous cholecystitis Alcohol withdrawal Abdominal pain, nausea and vomiting due to alcoholic hepatitis Alcohol abuse Depression History of Present Illness History of Present Illness: RAMBO MARTINEZ is a 31 year old male with a history of heavy alcohol use who presented to the hospital with abdominal pain, nausea and vomiting. He reported one episode of hematemesis at home. CAT scan of the abdomen showed a foreign body which appeared to be metallic in the area of the appendix but no evidence of perforation. He admits to possibly have swallowed his tongue piercing when he was intoxicated. The patient admitted to having been drinking liquor for the past couple of weeks and not eating or drinking anything else. His mother was at the bedside. The patient initially denied depression but then says that he might have some anxiety and feelings of sadness which are contributing to his heavy alcohol use. He denied any suicidal ideation or intention. CAT scan had showed some thickening of the gallbladder wall. An ultrasound of the abdomen showed abdominal wall thickening. Notes no stranding or pericholecystic fluid. HIDA scan showed the gallbladder although the ejection fraction was reduced. He was given Invanz. He was evaluated by Dr. Knox from the surgical service who felt that he did not require surgery. He will be given 1 week of Flagyl and ciprofloxacin and will follow up with surgery as an outpatient. He will also establish primary care and mental health care as an outpatient. I will be giving him a taper of Ativan for the next 9 days. He had no further vomiting during the hospital stay. No hematemesis. He feels much better. He was initially n.p.o. and diet was gradually upgraded and he has tolerated this well. He is ready for discharge. Hospital Course Hospital Course: As above. Physical Exam Vital Signs: Temp Pulse Resp BP Pulse Ox 99.0 F 97 18 132/84 H 99 05/30/17 15:34 05/30/17 15:34 05/30/17 15:34 05/30/17 15:34 05/30/17 15:34 Intake & Output 05/29/17 05/30/17 05/31/17 06:59 06:59 06:59 Intake Total 1080 1020 1011 Output Total 650 540 Balance 006 684 8333 Additional comments: Young male lying in bed not in acute distress lungs: Clear to auscultation bilaterally, respiratory effort Abdomen: Soft, negative Collazo's sign, normal bowel sounds, no fluid thrill palpable. Results Laboratory Results: 05/30/17 05:50 05/30/17 05:50 05/30/17 05/30/17 05:50 05:50 WBC 4.3 RBC 3.58 L Hgb 12.1 L Hct 34.4 L MCV 96 MCH 33.9 H MCHC 35.4 RDW 13.3 Plt Count 124 L Seg Neutrophils % 66.0 Lymphocytes % 26.9 Monocytes % 5.1 Eosinophils % 1.1 Basophils % 0.9 Absolute Neutrophils 2.8 Absolute Lymphocytes 1.1 Absolute Monocytes 0.2 Absolute Eosinophils 0.0 Absolute Basophils 0.0 Sodium 141.1 Potassium 3.6 Chloride 102 Carbon Dioxide 25 Anion Gap 14 BUN 2 L Creatinine 0.58 Est GFR ( Amer) > 60 Est GFR (Non-Af Amer) > 60 Glucose 80 Calcium 8.9 Phosphorus 4.4 Magnesium 1.6 Total Bilirubin 3.4 H AST 108 H ALT 30 Alkaline Phosphatase 307 H Total Protein 7.5 Albumin 3.7 Impressions: Abdomen/Pelvis CT 05/27/17 16:24 IMPRESSION: 1. Hepatomegaly. 2. Foreign body appears to be in the small bowel distally. KUB X-Ray 05/28/17 06:00 IMPRESSION: 1. Radiopaque foreign body in the right lower abdomen bowel or cecum. 2. Nonobstructive bowel gas pattern. Abdomen Ultrasound 05/29/17 00:00 IMPRESSION: 1. Gallbladder wall thickening. This could be related to acalculous cholecystitis, inflammation of the adjacent structures, or hypoproteinemia. Correlation with HIDA scan may be beneficial if there is concern for acute acalculous cholecystitis. 2. No evidence of portal venous thrombosis by ultrasound criteria. Hepatobiliary Scan Nuclear Medicine 05/29/17 00:00 IMPRESSION: No scintigraphic evidence of cystic duct or common duct obstruction Depressed gallbladder ejection fraction. IV CCK did not reproduce his symptoms Abnormal hepatic function, hepatobiliary agent did not completely clear from the liver by 60 minutes. This indicates diffuse hepatocellular dysfunction Plan Discharge Plan: Discharge home and follow-up with primary care and surgery within 1 week Established outpatient mental health care. Time Spent: Greater than 30 Minutes
[2017-05-30 18:50] VITALS: BP 112/70
[2017-05-30] MEDS ORDERED: CIPROFLOXACIN HCL 500 MG TABLET PO SCH (22:00)
[2017-05-30] MEDS ORDERED: METRONIDAZOLE 500 MG TABLET PO SCH (22:00)
== END 2017-05-30 19:25 | disposition home or self-care (01) | DRG 392 ==
LOC: ER 15:46 → EH 21:43 → 4N 05-28 00:15
PROVIDERS: ADMIT Family Medicine; ATTEND Family Medicine
DX: R10.84 Generalized abdominal pain (principal); F10.280 Alcohol dependence with alcohol-induced anxiety disorder; F10.239 Alcohol dependence with withdrawal, unspecified; K86.1 Other chronic pancreatitis; E72.20 Disorder of urea cycle metabolism, unspecified; E87.2 Acidosis; K81.9 Cholecystitis, unspecified; E87.6 Hypokalemia; E83.42 Hypomagnesemia; K70.30 Alcoholic cirrhosis of liver without ascites; F31.9 Bipolar disorder, unspecified; B19.20 Unspecified viral hepatitis C without hepatic coma; F12.10 Cannabis abuse, uncomplicated; F14.10 Cocaine abuse, uncomplicated; F17.210 Nicotine dependence, cigarettes, uncomplicated; Y90.9 Presence of alcohol in blood, level not specified; T18.8XXA Foreign body in other parts of alimentary tract, initial encounter
CPT/HCPCS: 36415; 74000; 74177; 76700; 78227; 80048; 80053; 80076; 81001; 82140; 82272; 83036; 83690; 83735; 84100; 85025; 85610; 85730; 87493; 93005; 93010; 93976; 96361; 96374; 96375; 99285; A9537; J1170; J1335; J2060; J2405; J2805; J3475; J3480; J7030; Q9969

== ENCOUNTER 2017-06-26 16:36 | Emergency (ER) | payer SELFPAY ==
[2017-06-26] MEDS ORDERED: NORMAL SALINE 1000 ML 1,000 ML IV ONE (17:09)
--- NOTE | 2017-06-26 17:14 | ER Document Report ---
ED Medical Screen (RME) - General Chief Complaint: Flu Symptoms Stated Complaint: SORE THROAT,NECK PAIN,HEADACHE Time Seen by Provider: 06/26/17 17:08 Mode of Arrival: Ambulatory Information source: Patient TRAVEL OUTSIDE OF THE [place] IN LAST 30 DAYS: No - HPI Patient complains to provider of: sore throat, cough, generalized arthralgias and myalgias Onset: Yesterday - pt .with above c/o for the past 2 days. Did not get flu shot this year - Related Data Allergies/Adverse Reactions: carisoprodol [From Soma] Allergy (Verified 06/26/17 16:38) Sulfa (Sulfonamide Antibiotics) Allergy (Verified 06/26/17 16:38) Past Medical History - Social History Frequency of alcohol use: Heavy Drug Abuse: Heroin - Past Medical History Cardiac Medical History: Reports: Hx Hypercholesterolemia, Hx Hypertension Pulmonary Medical History: Reports: Hx Bronchitis Neurological Medical History: Reports: Hx Cerebrovascular Accident - States he has had a TIA. Denies: Hx Seizures Renal/ Medical History: Denies: Hx Peritoneal Dialysis GI Medical History: Reports: Hx Gastritis, Hx Hepatitis - Hepatitis-C, Hx Ulcer , Hx Endoscopy Musculoskeltal Medical History: Reports Hx Arthritis, Reports Hx Gout, Reports Hx Musculoskeletal Deformity, Reports Hx Musculoskeletal Trauma Psychiatric Medical History: Reports: Hx Anxiety, Hx Bipolar Disorder, Hx Post Traumatic Stress Disorder Denies: Hx Depression Traumatic Medical History: Reports: Hx Fractures - Right hand Infectious Medical History: Reports: Hx Hepatitis - Hepatitis-C Past Surgical History: Reports: Hx Orthopedic Surgery - R hand - Immunizations Immunizations up to date: Yes Hx Diphtheria, Pertussis, Tetanus Vaccination: Yes History of Influenza Vaccine for 03/2017 - 08/2017 Season: Refused Physical Exam - Vital signs Vitals: Temp Pulse Resp BP Pulse Ox 98.4 F 122 H 20 152/87 H 95 06/26/17 16:41 06/26/17 16:41 06/26/17 16:41 06/26/17 16:41 06/26/17 16:41 Course - Vital Signs Vital signs: Temp Pulse Resp BP Pulse Ox 98.4 F 122 H 20 152/87 H 95 06/26/17 16:41 06/26/17 16:41 06/26/17 16:41 06/26/17 16:41 06/26/17 16:41
[2017-06-26 18:11] LABS: ABSOLUTE BASOPHILS # (AUTO) 0.1 10^3/uL (0.0-0.2); ABSOLUTE EOSINOPHILS # (AUTO) 0.1 10^3/uL (0.0-0.6); ABSOLUTE LYMPHOCYTES (AUTO) 4.5 10^3/uL (0.5-4.7); ABSOLUTE MONOCYTES (AUTO) 0.4 10^3/uL (0.1-1.4); ABSOLUTE NEUT (AUTO) 4.7 10^3/uL (1.7-8.2); BASOPHILS % (AUTO) 0.5 % (0-2); EOSINOPHILS % (AUTO) 0.6 % (0-6); HEMOGLOBIN 14.4 g/dL (13.5-17.0); LYMPHOCYTES % (AUTO) 46.3 % (13-45); MEAN CORPUSCULAR HEMOGLOBIN 32.2 pg (27.0-33.4); MEAN CORPUSCULAR HGB CONC 34.2 g/dL (32.0-36.0); MEAN CORPUSCULAR VOLUME 94 fl (80-97); MONOCYTES % (AUTO) 4.4 % (3-13); PLATELET COUNT 208 10^3/uL (150-450); RED BLOOD COUNT 4.48 10^6/uL (4.35-5.55); RED CELL DISTRIBUTION WIDTH 13.4 % (11.5-14.0); SEGMENTED NEUTROPHILS % (AUTO) 48.2 % (42-78); TOTAL CELLS COUNTED % (AUTO) 100 %; WHITE BLOOD COUNT 9.7 10^3/uL (4.0-10.5)
--- NOTE | 2017-06-26 18:23 | RADIOLOGY REPORT (SQ) ---
EXAM DESCRIPTION: CHEST PA/LAT COMPLETED DATE/TIME: 06/26/2017 6:16 pm REASON FOR STUDY: fever, cough COMPARISON: 08/28/2016 EXAM PARAMETERS: NUMBER OF VIEWS: two views TECHNIQUE: Digital Frontal and Lateral radiographic views of the chest acquired. RADIATION DOSE: NA LIMITATIONS: none FINDINGS: LUNGS AND PLEURA: No opacities, masses or pneumothorax. No pleural effusion. MEDIASTINUM AND HILAR STRUCTURES: No masses or contour abnormalities. HEART AND VASCULAR STRUCTURES: Heart normal size. No evidence for failure. BONES: No acute findings. HARDWARE: None in the chest. OTHER: No other significant finding. IMPRESSION: NO SIGNIFICANT RADIOGRAPHIC FINDING IN THE CHEST. TECHNICAL DOCUMENTATION: JOB ID: [id number] [employer]- All Rights Reserved
[2017-06-26 18:24] LABS: APPEARANCE,URINE CLEAR; BILIRUBIN,URINE NEGATIVE (NEGATIVE); COLOR,URINE YELLOW; GLUCOSE, URINE NEGATIVE (NEGATIVE); KETONES,URINE NEGATIVE (NEGATIVE); LEUKOCYTE ESTERASE,URINE NEGATIVE (NEGATIVE); NITRITE,URINE NEGATIVE (NEGATIVE); PROTEIN,URINE NEGATIVE (NEGATIVE); URINE SPECIFIC GRAVITY 1.004
[2017-06-26 18:31] LABS: ALANINE AMINOTRANSFERASE 38 U/L (21-72); ALBUMIN 4.4 g/dL (3.5-5.0); ALKALINE PHOSPHATASE 407 U/L (38-126); ASPARTATE AMINO TRANSFERASE 211 U/L (17-59); BILIRUBIN,DIRECT 1.5 mg/dL (0.0-0.4); BILIRUBIN,TOTAL 1.9 mg/dL (0.2-1.3); CALCIUM 9.7 mg/dL (8.4-10.2); CARBON DIOXIDE 27 mmol/L (22-30); CHLORIDE 99 mmol/L (98-107); GLUCOSE 129 mg/dL (75-110); POTASSIUM 3.6 mmol/L (3.6-5.0); SODIUM 149.4 mmol/L (137-145); TOTAL PROTEIN 8.7 g/dL (6.3-8.2)
[2017-06-26 18:32] LABS: A TYPE INFLUENZA AG NEGATIVE (NEGATIVE); ANION GAP 23 (5-19); B INFLUENZA AG NEGATIVE (NEGATIVE); BLOOD UREA NITROGEN < 2 mg/dL (7-20)
[2017-06-26] MEDS: NORMAL SALINE 1000 ML 1,000 ML IV PRN ×2 (20:23→21:07)
[2017-06-26] MEDS ORDERED: LORAZEPAM INJ 2 MG/1 ML VIAL IV ONE (20:27)
[2017-06-26] MEDS ORDERED: DEXAMETHASONE SOD PHOS INJ 10 MG/1 ML VIAL IM ONE (20:28)
--- NOTE | 2017-06-26 20:30 | ER Document Report ---
HPI - HPI Pain Level: 4 Notes: Patient is a 31-year-old male with a history of heroin and alcohol abuse who presents to the ED complaining of a sore throat, nasal congestion/discharge, but he aches, and occasional dry nonproductive cough 2 days. Patient still eating and drinking, but does have a decreased p.o. intake due to the pain that he is having. He still urinating normally having normal bowel movements. Patient has not been using any [id number] meds for his symptoms. Patient is accompanied by his mother. Patient's last drink was about 4 hours ago. No SI/HI. Denies any headache, fever, chest pain, palpitations, syncope, shortness of breath, wheeze, dyspnea, abdominal pain, nausea/vomiting/diarrhea, urinary retention, dysuria, hematuria, loss of control of bowel or bladder, numbness/tingling, saddle anesthesia, muscle paralysis/weakness, or rash. - ROS Notes: REVIEW OF SYSTEMS: CONSTITUTIONAL : see hpi EENT: see hpi CARDIOVASCULAR: Denies chest pain. Denies palpitations or racing or irregular heart beat. Denies ankle edema. RESPIRATORY: see hpi GASTROINTESTINAL: Denies abdominal pain or distention. Denies nausea, vomiting , or diarrhea. Denies blood in vomitus, stools, or per rectum. Denies black, tarry stools. Denies constipation. GENITOURINARY: Denies difficulty urinating, painful urination, burning, frequency, blood in urine, or discharge. MUSCULOSKELETAL: Denies back or neck pain or stiffness. Denies joint pain or swelling. SKIN: Denies rash, lesions or sores. NEUROLOGICAL: Denies confusion or altered mental status. Denies passing out or loss of consciousness. Denies dizziness or lightheadedness. Denies headache. Denies weakness or paralysis or loss of use of either side. Denies problems with gait or speech. Denies sensory loss, numbness, or tingling. Denies seizures. PSYCHIATRIC: Denies anxiety or stress. Denies depression, suicidal ideation, or homicidal ideation. ALL OTHER SYSTEMS REVIEWED AND NEGATIVE. Dictation was performed using [employer] voice recognition software - REPRODUCTIVE Reproductive: DENIES: : - DERM Skin Color: Normal, [place] Past Medical History - General Information source: Patient - Social History Smoking Status: Unknown if Ever Smoked Frequency of alcohol use: Heavy Drug Abuse: Heroin Family History: CAD, CVA, Hyperlipidemia, Hypertension, Malignancy, Thyroid Disfunction Patient has suicidal ideation: No Patient has homicidal ideation: No - Past Medical History Cardiac Medical History: Reports: Hx Hypercholesterolemia, Hx Hypertension Pulmonary Medical History: Reports: Hx Bronchitis Neurological Medical History: Reports: Hx Cerebrovascular Accident - States he has had a TIA. Denies: Hx Seizures Renal/ Medical History: Denies: Hx Peritoneal Dialysis GI Medical History: Reports: Hx Gastritis, Hx Hepatitis - Hepatitis-C, Hx Ulcer , Hx Endoscopy Musculoskeltal Medical History: Reports Hx Arthritis, Reports Hx Gout, Reports Hx Musculoskeletal Deformity, Reports Hx Musculoskeletal Trauma Psychiatric Medical History: Reports: Hx Anxiety, Hx Bipolar Disorder, Hx Post Traumatic Stress Disorder Denies: Hx Depression Traumatic Medical History: Reports: Hx Fractures - Right hand Infectious Medical History: Reports: Hx Hepatitis - Hepatitis-C Past Surgical History: Reports: Hx Orthopedic Surgery - R hand - Immunizations Immunizations up to date: Yes Hx Diphtheria, Pertussis, Tetanus Vaccination: Yes Vertical Provider Document - CONSTITUTIONAL Agree With Documented VS: Yes Notes: PHYSICAL EXAMINATION: GENERAL: Well-appearing, well-nourished and in no acute distress. A&Ox4. Answers questions appropriately HEAD: Atraumatic, normocephalic. EYES: Pupils equal round and reactive to light, extraocular movements intact, sclera anicteric, conjunctiva are normal. ENT: EAC clear b/l. TM's intact b/l without erythema, fluid, or perforation. Nares patent and with clear discharge. oropharynx mild erythema without exudates. 1+ tonsilar hypertrophy without erythema or exudate. No palatine shift. Uvula midline. No tongue protrusion. No drooling, hoarseness, or airway compromise. Moist mucous membranes. No sinus tenderness. NECK: Normal range of motion, supple without lymphadenopathy. No rigidity/ meningismus. LUNGS: Breath sounds clear to auscultation bilaterally and equal. No wheezes rales or rhonchi. HEART: Regular rate and rhythm without murmurs, rubs, gallops. ABDOMEN: Soft, nontender, nondistended abdomen. No guarding, no rebound. No masses appreciated. Normal bowel sounds present. No CVA tenderness bilaterally. No hepatosplenomegaly. NEUROLOGICAL: Normal speech, normal gait. Normal sensory, motor exams PSYCH: Pt does appear somewhat anxious SKIN: Warm, Dry, normal turgor, no rashes or lesions noted. - INFECTION CONTROL TRAVEL OUTSIDE OF THE [place] IN LAST 30 DAYS: No - RESPIRATORY O2 Sat by Pulse Oximetry: 95 Course - Re-evaluation Re-evalutation: 06/26/17 21:25 Patient is an afebrile, well-hydrated, 31-year-old male who presents the ED with acute URI/pharyngitis, suspect viral at this time (HR dec to 100). Vitals are stable. PE is otherwise unremarkable. CBC, rapid strep, rapid influenza were all unremarkable for any acute pathology. CMP did show stable labs from previous visits. sodium was mildly high so I suspect that he is on the dry side. Pt was given 1L NS during triage. I will order for 2 more liters IV. Decadron given IV along with Ativan 0.5mg IV. Low suspicion for any meningitis , sepsis, peritonsillar/pharyngeal abscess, respiratory compromise, Russell's, SI /HI, withdrawal, or other emergent systemic condition at this time. Patient is aware this condition can change from initial presentation and he needs to monitor symptoms closely. Conservative measures otherwise for symptoms. Recheck with your PCM in 3-5 days. Return to the ED with any worsening/ concerning symptoms otherwise as reviewed in discharge. Patient is in agreement. I will place a consult for discharge planning to call the patient for possible help with rehab. - Vital Signs Vital signs: Temp Pulse Resp BP Pulse Ox 98.4 F 122 H 20 152/87 H 95 06/26/17 16:41 06/26/17 16:41 06/26/17 16:41 06/26/17 16:41 06/26/17 16:41 - Laboratory Result Diagrams: 06/26/17 17:30 06/26/17 17:30 Laboratory results interpreted by me: 06/26/17 06/26/17 06/26/17 17:30 17:30 18:10 Lymphocytes % 46.3 H Sodium 149.4 H Anion Gap 23 H BUN < 2 L Creatinine 0.47 L Glucose 129 H Total Bilirubin 1.9 H Direct Bilirubin 1.5 H AST 211 H Alkaline Phosphatase 407 H Total Protein 8.7 H Urine Urobilinogen 2.0 H Discharge - Discharge Clinical Impression: Acute URI Acute pharyngitis Qualifiers: Pharyngitis/tonsillitis etiology: unspecified etiology Qualified Code(s): J02.9 - Acute pharyngitis, unspecified Condition: Stable Disposition: HOME, SELF-CARE Instructions: Sore Throat ([facility]), Upper Respiratory Illness ([facility]) Additional Instructions: Maintain adequate fluid intake Take meds as directed Salt water gargles, throat sprays, mouthwash rinse, peroxide gargles tylenol/ibuprofen as needed over the counter cold medication as needed for symptoms F/u: with your PCM in 2-3 days for a recheck Consider consult with ENT for ongoing/worsening symptoms Return to the ED with any fever, worsening pain, chest pain, neck pain/stiffness , shortness of breath, cough, drooling, trouble swallowing/breathing, abdominal pain, n/v/d, rash, or worsening/concerning symptoms otherwise. Forms: Elevated Blood Pressure Referrals: [facility] [Provider Group] - Follow up as needed [facility] [Provider Group] - Follow up as needed JEREMIAH SPANN DO [ASSOCIATE] - Follow up as needed
[2017-06-26] MEDS ORDERED: DEXAMETHASONE SOD PHOS INJ 10 MG/1 ML VIAL IV ONE (20:34)
[2017-06-26 21:40] VITALS: BP 135/88
== END 2017-06-26 21:53 | disposition home or self-care (01) ==
LOC: ER 16:36
DX: J06.9 Acute upper respiratory infection, unspecified (principal); M79.1 Myalgia; E78.00 Pure hypercholesterolemia, unspecified; I10 Essential (primary) hypertension; Z86.73 Personal history of transient ischemic attack (TIA), and cerebral infarction without residual deficits; Z86.19 Personal history of other infectious and parasitic diseases
CPT/HCPCS: 99284; 96361; 96374; 96375; 36415; 87070; 87880; 85025; 80053; 81001; 87804; 71046; J2060; J7030; J1100

== ENCOUNTER 2017-06-30 00:37 | Emergency (ER) | payer SELFPAY ==
[2017-06-30] MEDS ORDERED: NORMAL SALINE 1000 ML 1,000 ML IV ONE (02:03)
[2017-06-30 02:46] LABS: ABSOLUTE BASOPHILS # (AUTO) 0.1 10^3/uL (0.0-0.2); ABSOLUTE LYMPHOCYTES (AUTO) 3.2 10^3/uL (0.5-4.7); ABSOLUTE MONOCYTES (AUTO) 0.7 10^3/uL (0.1-1.4); ABSOLUTE NEUT (AUTO) 4.3 10^3/uL (1.7-8.2); BASOPHILS % (AUTO) 0.8 % (0-2); EOSINOPHILS % (AUTO) 0.4 % (0-6); HEMATOCRIT 38.5 % (37.9-51.0); HEMOGLOBIN 13.7 g/dL (13.5-17.0); LYMPHOCYTES % (AUTO) 38.4 % (13-45); MEAN CORPUSCULAR HEMOGLOBIN 32.9 pg (27.0-33.4); MEAN CORPUSCULAR HGB CONC 35.6 g/dL (32.0-36.0); MEAN CORPUSCULAR VOLUME 93 fl (80-97); MONOCYTES % (AUTO) 8.9 % (3-13); PLATELET COUNT 152 10^3/uL (150-450); RED BLOOD COUNT 4.17 10^6/uL (4.35-5.55); RED CELL DISTRIBUTION WIDTH 13.2 % (11.5-14.0); SEGMENTED NEUTROPHILS % (AUTO) 51.5 % (42-78); TOTAL CELLS COUNTED % (AUTO) 100 %; WHITE BLOOD COUNT 8.4 10^3/uL (4.0-10.5)
--- NOTE | 2017-06-30 02:59 | RADIOLOGY REPORT (SQ) ---
EXAM DESCRIPTION: CHEST SINGLE VIEW CLINICAL HISTORY: 31 years, Male, CP COMPARISON: 06/26/2017. FINDINGS: Moderate lung volume, clear parenchyma, normal cardiac silhouette, and intact bony thorax. IMPRESSION: No acute cardiopulmonary findings. 2011 [employer]- All Rights Reserved
[2017-06-30 03:06] LABS: ALANINE AMINOTRANSFERASE 53 U/L (21-72); ALBUMIN 4.1 g/dL (3.5-5.0); ALCOHOL 198 mg/dL (NONE DETECTED); ALKALINE PHOSPHATASE 325 U/L (38-126); ANION GAP 19 (5-19); ASPARTATE AMINO TRANSFERASE 224 U/L (17-59); BILIRUBIN,DIRECT 1.5 mg/dL (0.0-0.4); CALCIUM 9.1 mg/dL (8.4-10.2); CARBON DIOXIDE 28 mmol/L (22-30); CHLORIDE 98 mmol/L (98-107); GLUCOSE 107 mg/dL (75-110); POTASSIUM 3.3 mmol/L (3.6-5.0); SODIUM 145.2 mmol/L (137-145)
[2017-06-30 03:11] LABS: ACETAMINOPHEN < 10 ug/mL (10-30); BLOOD UREA NITROGEN < 2 mg/dL (7-20); SALICYLATE < 1.0 mg/dL (2.0-20.0)
[2017-06-30] MEDS ORDERED: LORAZEPAM INJ 2 MG/1 ML VIAL IV ONE ×4 (03:14→09:44)
[2017-06-30 03:36] LABS: APPEARANCE,URINE CLEAR; BILIRUBIN,URINE NEGATIVE (NEGATIVE); COLOR,URINE AMBER; GLUCOSE, URINE NEGATIVE (NEGATIVE); KETONES,URINE NEGATIVE (NEGATIVE); LEUKOCYTE ESTERASE,URINE NEGATIVE (NEGATIVE); NITRITE,URINE NEGATIVE (NEGATIVE); PROTEIN,URINE 30 mg/dL (NEGATIVE); URINE SPECIFIC GRAVITY 1.015
[2017-06-30] MEDS ORDERED: NORMAL SALINE 1000 ML 1,000 ML with POTASSIUM CHLORIDE 20 MEQ, MAGNESIUM SULFATE 8 MEQ,... IV PRN ×5 (03:48)
[2017-06-30 03:52] LABS: URINE AMPHETAMINES SCREEN NEGATIVE; URINE BARBITURATES SCREEN NEGATIVE; URINE BENZODIAZEPINES SCREEN UNCONFIRMED POSITIVE; URINE COCAINE SCREEN NEGATIVE; URINE MARIJUANA (THC) SCREEN UNCONFIRMED POSITIVE; URINE METHADONE SCREEN NEGATIVE; URINE PHENCYCLIDINE SCREEN NEGATIVE
--- NOTE | 2017-06-30 03:55 | ER Document Report ---
ED General - General TRAVEL OUTSIDE OF THE [place] IN LAST 30 DAYS: No <PALMAEDDIE Anca - Last Filed: 06/30/17 05:45> <DORINDA DESAI - Last Filed: 06/30/17 10:07> <JAYA TO - Last Filed: 06/30/17 10:38> - General Chief Complaint: Alcohol Withdrawl Stated Complaint: CHEST PAIN Time Seen by Provider: 06/30/17 01:00 - HPI Notes: 31-year-old male with long-standing history of alcohol and substance abuse presents with left-sided chest pain. He states he has having a hard time thinking and reports that he did drink earlier in the day and cannot allude to much further history. He cannot describe the character and just states that it hurts. He appears intoxicated but at this point denies any suicidal or homicidal ideation. He does report some dry cough. He requires significant amount of redirection to get further history. He does report alcohol and heroin use and would like detox. (EDDIE WALDROP) - Related Data Allergies/Adverse Reactions: carisoprodol [From Soma] Allergy (Verified 06/26/17 16:38) Sulfa (Sulfonamide Antibiotics) Allergy (Verified 06/26/17 16:38) Past Medical History - Social History Smoking Status: Current Every Day Smoker Family History: CAD, CVA, Hyperlipidemia, Hypertension, Malignancy, Thyroid Disfunction - Past Medical History Cardiac Medical History: Reports: Hx Hypercholesterolemia, Hx Hypertension Pulmonary Medical History: Reports: Hx Bronchitis Neurological Medical History: Reports: Hx Cerebrovascular Accident - States he has had a TIA. Denies: Hx Seizures Renal/ Medical History: Denies: Hx Peritoneal Dialysis GI Medical History: Reports: Hx Gastritis, Hx Hepatitis - Hepatitis-C, Hx Ulcer , Hx Endoscopy Musculoskeltal Medical History: Reports Hx Arthritis, Reports Hx Gout, Reports Hx Musculoskeletal Deformity, Reports Hx Musculoskeletal Trauma Psychiatric Medical History: Reports: Hx Anxiety, Hx Bipolar Disorder, Hx Post Traumatic Stress Disorder Denies: Hx Depression Traumatic Medical History: Reports: Hx Fractures - Right hand Infectious Medical History: Reports: Hx Hepatitis - Hepatitis-C Past Surgical History: Reports: Hx Orthopedic Surgery - R hand - Immunizations Immunizations up to date: Yes Hx Diphtheria, Pertussis, Tetanus Vaccination: Yes <EDDIE WALDROP - Last Filed: 06/30/17 05:45> Review of Systems - Review of Systems -: Yes ROS unobtainable due to patient's medical condition - As per HPI, difficult as patient will not answer all questions. <EDDIE WALDROP - Last Filed: 06/30/17 05:45> Physical Exam - Vital signs Interpretation: Hypertensive <EDDIE WALDROP - Last Filed: 06/30/17 05:45> <DORINDA DESAI - Last Filed: 06/30/17 10:07> <JAYA TO - Last Filed: 06/30/17 10:38> - Vital signs Vitals: Pulse Resp BP Pulse Ox 119 H 24 H 141/101 H 95 06/30/17 01:39 06/30/17 01:39 06/30/17 01:39 06/30/17 01:39 - Notes Notes: GENERAL: VS as per nursing doc. Well-appearing, well-nourished and in no acute distress. HEAD: Atraumatic, normocephalic EYES: Pupils equal round and reactive to light, extraocular movements intact, no conjunctival injection or discharge. ENT: Nares patent, oropharynx clear without exudates, somewhat dry mucous membranes. NECK: Normal range of motion, supple without lymphadenopathy. LUNGS: Coarse breath sounds bilaterally but equal. There is reproducible left pectoral chest tenderness with withdrawal. HEART: Regular rate and rhythm without murmurs. Peripheral pulses equal. ABDOMEN: Soft, non-tender. BACK: Normal to inspection EXTREMITIES: Normal appearance without edema. NEUROLOGICAL: Cranial nerves grossly intact. Normal speech. Normal sensory and motor exams. No gross cerebellar abnormalities. PSYCH: Appears somewhat disoriented to time. Requires significant direction to obtain history and follows commands in an limited capacity. No evidence of hallucinations or delusions. No reported suicidal or homicidal ideation. Grossly appears intoxicated SKIN: Warm, dry. No lacerations. (EDDIE WALDROP) Course - Laboratory Result Diagrams: 06/30/17 02:30 06/30/17 02:30 - Diagnostic Test Radiology reviewed: Image reviewed, Reports reviewed - No acute process - EKG Interpretation by Me Rate: Tachycardia - Some ST flattening but no obvious evidence of ischemia. QRS normal duration. <EDDIE WALDROP - Last Filed: 06/30/17 05:45> - Laboratory Result Diagrams: 06/30/17 02:30 06/30/17 02:30 <DORINDA DESAI - Last Filed: 06/30/17 10:07> - Laboratory Result Diagrams: 06/30/17 02:30 06/30/17 02:30 <JAYA TO - Last Filed: 06/30/17 10:38> - Re-evaluation Re-evalutation: 06/30/17 05:45 Patient appears to be clearing on my reexamination. He was slightly tremulous so he was given some Ativan here as he appeared to be developing some withdrawal symptoms. He reports to me that [facility] had been at his house earlier yesterday and trying to get him some help. He still denies suicidal or homicidal ideation up nicely no current delusional or hallucinations. He would like to to get help getting off of the heroin and alcohol. Case management will evaluate him this morning. (EDDIE WALDROP) - Vital Signs Vital signs: Temp Pulse Resp BP Pulse Ox 119 H 21 H 143/96 H 94 06/30/17 01:39 06/30/17 10:01 06/30/17 10:00 06/30/17 10:01 - Laboratory Laboratory results interpreted by me: 06/30/17 06/30/17 06/30/17 02:30 02:30 02:30 RBC 4.17 L Sodium 145.2 H Potassium 3.3 L BUN < 2 L Creatinine 0.51 L Total Bilirubin 2.0 H Direct Bilirubin 1.5 H AST 224 H Alkaline Phosphatase 325 H Urine Protein 30 H Urine Urobilinogen 4.0 H Salicylates < 1.0 L Acetaminophen < 10 L Discharge <EDDIE WALDROP - Last Filed: 06/30/17 05:45> <DORINDA DESAI - Last Filed: 06/30/17 10:07> <JAYA TO - Last Filed: 06/30/17 10:38> - Discharge Clinical Impression: Chest pain, Polysubstance abuse Condition: Stable Disposition: HOME, SELF-CARE Additional Instructions: ACUTE ALCOHOL INTOXICATION and ALCOHOL ABUSE: Your evaluation revealed very high levels of alcohol. You can from drinking a large amount of alcohol rapidly! Further, there's the risk of falls , traffic accidents, and fights. A high portion (about 50 percent) of the serious injuries seen in hospital emergency rooms are caused by alcohol. Alcohol overdosage is usually due to an underlying emotional or psychiatric problem. You may benefit from counselling. If "binge" drinking is an ongoing problem for you, or if you drink ANY AMOUNT of alcohol EVERY day, you most likely have a tendency to alcoholism. You should avoid alcohol totally. We can refer you for treatment. Persons with alcohol problems are often also prone to other addictions -- you should discuss any use of medications or drugs with the doctor. You should be watched at home for the next several hours by someone who has not been drinking. Get extra fluids for the next 24 hours. Call the doctor if there is repeated vomiting, increasing headache, decreasing level of alertness, or any other worsening. CHRONIC ALCOHOLISM and ALCOHOL ABUSE: Your evaluation reveals evidence of chronic alcoholism, an addiction to alcohol. The tendency to alcoholism may be inherited. Chronic use of alcohol weakens muscles, causes fatty deposits in the liver , damages the stomach, makes you more prone to infections, and can cause defects in unborn children. In the long run, brain atrophy and cirrhosis of the liver result. You are also at greater risk for certain types of cancer, such as cancer of the mouth, throat, stomach, and liver. Counselling services are available to help you. In-hospital treatment programs often help. Support groups such as Alcoholics Anonymous can be very useful in beating this addiction. Your physician can make a referral for you. As alcoholics often are prone to other addictions, you should discuss your use of any other medications with the doctor. ALCOHOL WITHDRAWAL: Your symptoms are caused by alcohol withdrawal. After a period of frequent drinking, the brain and body are changed by the alcohol. When you quit or reduce your drinking, the nervous system becomes unstable. Withdrawal symptoms can start a few hours after your last drink, but sometimes don't begin until a couple of days later. Symptoms can include shakiness, sweating, insomnia, nausea , vomiting, fearfulness, hallucinations, and seizures. In addition to the acute effects of alcohol withdrawal, we often have to deal with the medical effects of alcoholism. These problems often include dehydration, stomach irritation, intestinal bleeding, low blood sugar, liver disease, and pancreas inflammation. Treatment for alcohol withdrawal includes mild sedatives, vitamins, and fluids. You need to be with someone who can help if symptoms become severe. Many patients can withdraw at home. Admission to the hospital or a detox facility may be necessary if withdrawal symptoms are severe and uncontrollable. Abstaining from alcohol is the only effective long-term treatment. If you start drinking again, you will not be able to control yourself after the first drink. Treatment programs are available. In addition, many alcoholics benefit from Alcoholics Anonymous or other support groups available through your counselor or yazidism counter cutter. AL-ANON and ALA-TEEN are support groups for friends and family members of an alcoholic. Go to the emergency room if you develop persistent vomiting, severe abdominal pain, fever, shortness of breath, hallucinations, uncontrollable tremors, or seizures. NARCOTIC / OPIOD ABUSE: Narcotics and opiods are pain-relieving drugs that are often abused. They are addicting. Narcotics cause euphoria, but it often takes increasing amounts to "feel good" and avoid withdrawal symptoms. Overdose of narcotics causes small pupils, coma, and decreased breathing. It's a common cause of . Purity of street narcotics is unpredictable. Injection of narcotics is risky for abscesses, endocarditis (heart infection), pneumonia, and AIDS. Withdrawal from narcotics causes goose bumps, watery mouth, sweating, nasal congestion, muscle aches, abdominal cramps, vomiting, and diarrhea. There 's often restlessness and confusion. Treatment programs are available, but you must make the decision to quit. Medication (such as clonidine) can be prescribed to control the symptoms of withdrawal. FOLLOW-UP CARE: Please contact [facility] crisis for your continued assistance in placement in a detox upon discharge. You are recommended to follow-up with substance abuse treatment; you have been provided a resource packet that includes both inpatient and outpatient treatment options. If you experience worsening or a significant change in your symptoms, notify the physician immediately or return to the Emergency Department at any time for re-evaluation. Prescriptions: Hydroxyzine Pamoate [Vistaril 50 mg Capsule] 50 mg PO Q6HP PRN #20 capsule PRN Reason: Referrals: [facility] [Outside] - 06/30/17 [facility] [Outside] - Follow up as needed
[2017-06-30] MEDS ORDERED: THIAMINE HCL 100 MG in NORMAL SALINE 50 ML IV ONE (04:25)
[2017-06-30] MEDS ORDERED: MULTIVITAMIN TABLET PO ONE (04:26)
[2017-06-30] MEDS ORDERED: POTASSIUM CHLORIDE 10 MEQ TABLET.SA PO ONE ×2 (04:27→10:16)
[2017-06-30] MEDS ORDERED: THIAMINE HCL INJ 200 MG/2 ML VIAL ONE (04:51)
[2017-06-30] MEDS ORDERED: ONDANSETRON 4 MG TAB.RAPDIS PO ONE (07:21)
[2017-06-30] MEDS ORDERED: CLONIDINE 0.1 MG/24 HR PATCH.TDWK TD ONE (07:21)
--- NOTE | 2017-06-30 07:24 | ER Document Report ---
Doctor's Note Notes: 06/30/17 07:23 Did speak with the patient. His vital signs are stable. He has an unremarkable exam except for tremor. He states that he uses heroin on a daily basis sometimes he snorts it and sometimes he injects it. He used early yesterday and he snorted it. He is requesting detox. Psychiatry has been consulted. Patient's care was taken of by Dr. Odonnell. 06/30/17 10:42
--- NOTE | 2017-06-30 10:06 | PSYCHOLOGICAL NOTE ---
Psych Note - Psych Note Psych Note: Reason for consult: Detox Consent Permissions: None given 31-year-old male with long-standing history of alcohol and substance abuse presents with left-sided chest pain. He states he has having a hard time thinking and reports that he did drink earlier in the day and cannot allude to much further history. He cannot describe the character and just states that it hurts. He appears intoxicated but at this point denies any suicidal or homicidal ideation. He does report some dry cough. He requires significant amount of redirection to get further history. He does report alcohol and heroin use and would like detox. Patient states he arrived to [facility] ED via EMS for chest pain. Patient states he is "coming off stuff." When asked to further explain what "stuff" is he states "alcohol and heroin." Patient states he wants to be sober and requests detox. Patient states that he got involved with [facility] yesterday and they are also assisting him with looking for detox facilities. Patient disclosed that he has been to the [facility] multiple times "I have been there 16 or 17 times." Patient denies suicidal and homicidal ideation. Behavior health team contacted the [facility]; no beds are available per Alycia. Patient is alert and orientated to person, place, time and circumstance. Mood is dysphoric with flat affect. Clinician notes patient disclosed he is currently feeling ill because of withdrawal. Patient denies suicidal and homicidal ideation. Delusions are absent and behaviors congruent with intact reality based presentation i.e. organized, linear thinking. Eye contact was fair. Conversational speech was low at times difficult to hear. Intellectual abilities appear to be within the average range. Attention and concentration are fair. Insight, judgment, impulse control are historically poor due to substance abuse. 303.90 (F10.20) alcohol use disorder; severe per history provided by patient 292.9 (F11.99) unspecified opiate related disorder per history provided by patient Impression\\plan: Patient is considered psychiatrically clear. Patient does not meet IVC criteria per [place] GS 122C. Patient denies suicidal and homicidal ideation. Delusions are absent and behavior is congruent with intact reality based presentation i.e. organized and linear thinking. Patient is requesting assistance with detox. Patient discloses substance abuse with both alcohol and heroin. Behavioral health team attempted to assist with placement at [facility] there are no beds available. Patient received substance abuse resource packet. Encouraged to continue working with [facility] for his substance abuse treatment options. Dr. Champion was consulted and the care and management of this patient; attending physician is agreement with her conditions and disposition.
[2017-06-30 10:26] VITALS: BP 143/96
--- NOTE | 2017-06-30 10:27 | ER Document Report ---
Doctor's Note Notes: 06/30/17 10:26 Rounds: Chart reviewed and patient interviewed. Patient seems to be doing better. Oriented and answers questions appropriately. Has calm down considerably. Lab studies were positive for alcohol of 198 and drug screen positive for marijuana, opiates, and benzos. Vital signs are all normal. Patient appears to be medically stable for transfer or discharge. Patient has been assessed by mental health who feels he can be discharged for outpatient follow-up. Johnny Odonnell MD 06/30/17 10:38 Patient was given a prescription for 20 Vistaril 50 mg to take as needed.
--- NOTE | 2017-06-30 17:05 | EKG REPORT ---
SEVERITY:- BORDERLINE ECG - SINUS TACHYCARDIA BORDERLINE T ABNORMALITIES, INFERIOR LEADS BORDERLINE PROLONGED QT INTERVAL : Confirmed by: Braden Elias 30-Jun-2017 17:04:35
== END 2017-06-30 10:44 | disposition home or self-care (01) ==
LOC: ER 00:37
DX: R07.9 Chest pain, unspecified (principal); F19.10 Other psychoactive substance abuse, uncomplicated; F10.239 Alcohol dependence with withdrawal, unspecified; F17.200 Nicotine dependence, unspecified, uncomplicated
CPT/HCPCS: 93005; 96376; 99285; 96361; 96374; 36415; 80307 ×4; 85025; 80053; 81001; 84484; 71045; 93010; S0119; J2060; J7030; J3490

== ENCOUNTER 2017-08-11 21:59 | Inpatient (IN) | payer SELFPAY ==
[2017-08-11] MEDS ORDERED: NORMAL SALINE 1000 ML 1,000 ML IV PRN (22:56)
--- NOTE | 2017-08-11 23:40 | ER Document Report ---
ED General - General Chief Complaint: Abdominal Pain Stated Complaint: VOMITING BLOOD, CHEST PAIN Time Seen by Provider: 08/11/17 22:55 TRAVEL OUTSIDE OF THE [place] IN LAST 30 DAYS: No - HPI Notes: Patient is a 32-year-old male with a past medical history significant for alcohol abuse, cocaine abuse, chronic pancreatitis, hypertension, hepatitis C, and cirrhosis who presents to the ED complaining of epigastric abdominal pain 2 days. Patient states that he has had about 7 episodes of vomiting over the last couple days and states that the last episode he had red blood associated. Patient states that he does have loose stool, but has not noticed any blood in his stool. Patient has had these symptoms multiple times in the past with the same presentation. Patient's last endoscopy was October of this past year. Patient does admit to drinking alcohol earlier today. Patient states that he is otherwise urinating normally. The pain does not radiate in his abdomen. Patient states that he did have some mild chest pain that did not radiate as well with a cough. The cough is dry nonproductive. No other concerns or complaints at this time. Denies any headache, fever, neck pain, changes in vision/speech/mentation/hearing, URI, sore throat, palpitations, syncope, shortness of breath, wheeze, dyspnea, urinary retention, dysuria, hematuria, loss of control of bowel or bladder, numbness/tingling, saddle anesthesia, muscle paralysis/weakness, or rash. - Related Data Allergies/Adverse Reactions: carisoprodol [From Soma] Allergy (Verified 06/26/17 16:38) Sulfa (Sulfonamide Antibiotics) Allergy (Verified 06/26/17 16:38) Past Medical History - Social History Smoking Status: Current Every Day Smoker Chew tobacco use (# tins/day): No Frequency of alcohol use: 1/2 gallon daily Drug Abuse: Prescription drugs Family History: CAD, CVA, Hyperlipidemia, Hypertension, Malignancy, Thyroid Disfunction Patient has suicidal ideation: No Patient has homicidal ideation: No - Past Medical History Cardiac Medical History: Reports: Hx Hypercholesterolemia, Hx Hypertension Pulmonary Medical History: Reports: Hx Bronchitis Neurological Medical History: Reports: Hx Cerebrovascular Accident - States he has had a TIA. Denies: Hx Seizures Renal/ Medical History: Denies: Hx Peritoneal Dialysis GI Medical History: Reports: Hx Gastritis, Hx Hepatitis - Hepatitis-C, Hx Ulcer , Hx Endoscopy Musculoskeltal Medical History: Reports Hx Arthritis, Reports Hx Gout, Reports Hx Musculoskeletal Deformity, Reports Hx Musculoskeletal Trauma Psychiatric Medical History: Reports: Hx Anxiety, Hx Bipolar Disorder, Hx Post Traumatic Stress Disorder Denies: Hx Depression Traumatic Medical History: Reports: Hx Fractures - Right hand Infectious Medical History: Reports: Hx Hepatitis - Hepatitis-C Past Surgical History: Reports: Hx Orthopedic Surgery - R hand - Immunizations Immunizations up to date: Yes Hx Diphtheria, Pertussis, Tetanus Vaccination: Yes Review of Systems - Review of Systems -: Yes All other systems reviewed and negative Physical Exam - Vital signs Vitals: Temp Pulse Resp BP Pulse Ox 98.7 F 126 H 20 139/75 H 94 08/11/17 22:04 08/11/17 22:04 08/11/17 22:04 08/11/17 22:04 08/11/17 22:04 - Notes Notes: PHYSICAL EXAMINATION: GENERAL: Well-appearing, well-nourished and in no acute distress. A&Ox4. Answers questions appropriately. HEAD: Atraumatic, normocephalic. EYES: Pupils equal round and reactive to light, extraocular movements intact, sclera anicteric, conjunctiva are normal. ENT: Nares patent and without discharge. oropharynx clear without exudates. No tonsilar hypertrophy or erythema. Moist mucous membranes. NECK: Normal range of motion, supple without lymphadenopathy LUNGS: Breath sounds clear to auscultation bilaterally and equal. No wheezes rales or rhonchi. HEART: Regular rate and rhythm without murmurs, rubs, gallops. ABDOMEN: Soft, nondistended abdomen. No guarding, no rebound. No masses appreciated. Normal bowel sounds present. No CVA tenderness bilaterally. + epigastric tenderness to palp. Rectal: bright green color noted (pt reports drinking green colored alcohol today). No black stool or red blood. Non-tender. Musculoskeletal: FROM to passive/active. Strength 5+/5. Extremities: No cyanosis, clubbing, or edema b/l. Peripheral pulses 2+. Capillary refill less than 3 seconds. NEUROLOGICAL: MMSE intact. Cranial nerves grossly intact. Normal speech, normal gait. Normal sensory, motor exams PSYCH: Normal mood, normal affect. SKIN: Warm, Dry, normal turgor, no rashes or lesions noted. Course - Re-evaluation Re-evalutation: 08/12/17 06:48 Patient is an afebrile, well-hydrated, 30-year-old male who presents the ED with alcohol intoxication, hypokalemia, hypomagnesemia, hyperammonemia. Vitals are stable. PE is otherwise unremarkable. CXR and EKG unremarkable. Cardiac enzymes negative. Guiac negative. Pt has been given magnesium and potassium as well as fluids, nausea meds, and withdrawal medications. Pt has been alert and has been responding appropriately throughout his stay. Reviewed case with Dr. Cullen. Recommends admit due to ammonia level and tx with lactulose would further reduce the potassium as well as prolonged detox from ETOH of 364. Currently 176 ETOH. 08/12/17 07:[address] Rocha, hospitalist, who will accept patient to tele obs. - Vital Signs Vital signs: Temp Pulse Resp BP Pulse Ox 98.7 F 126 H 22 H 136/81 H 94 08/11/17 22:04 08/11/17 22:04 08/12/17 06:28 08/12/17 06:28 08/12/17 06:28 - Laboratory Result Diagrams: 08/12/17 00:20 08/12/17 00:20 Laboratory results interpreted by me: 08/12/17 08/12/17 08/12/17 00:20 00:20 00:33 RBC 3.64 L Hgb 12.0 L Hct 34.6 L RDW 15.7 H Plt Count 132 L Potassium 2.8 L* Chloride 87 L Anion Gap 26 H BUN < 2 L Creatinine 0.48 L Magnesium 1.2 L* Total Bilirubin 3.4 H Direct Bilirubin 2.8 H AST 241 H Alkaline Phosphatase 408 H Ammonia 82.5 H Creatine Kinase 279 H Serum Alcohol 364 H* Discharge - Discharge Clinical Impression: Hyperammonemia, Hypomagnesemia, Hypokalemia Alcohol intoxication Qualifiers: Complication of substance-induced condition: uncomplicated Qualified Code(s): F10.920 - Alcohol use, unspecified with intoxication, uncomplicated Condition: Stable Disposition: ADMITTED OBSERVATION Admitting Provider: Hospitalist - Dr. Rocha Unit Admitted: Telemetry
[2017-08-11] MEDS ORDERED: LORAZEPAM INJ 2 MG/1 ML VIAL IV ONE (23:49)
--- NOTE | 2017-08-12 00:18 | RADIOLOGY REPORT (SQ) ---
EXAM DESCRIPTION: CHEST PA/LAT CLINICAL HISTORY: 32 years, Male, epigastric pain COMPARISON: 06/30/2017 NUMBER OF VIEWS: 2 LIMITATIONS: None. FINDINGS: Normal lung volume, clear parenchyma, normal cardiac silhouette, and intact bony thorax. IMPRESSION: No acute cardiopulmonary findings.
[2017-08-12 00:39] LABS: ABSOLUTE BASOPHILS # (AUTO) 0.1 10^3/uL (0.0-0.2); ABSOLUTE LYMPHOCYTES (AUTO) 1.7 10^3/uL (0.5-4.7); ABSOLUTE MONOCYTES (AUTO) 0.5 10^3/uL (0.1-1.4); ABSOLUTE NEUT (AUTO) 4.6 10^3/uL (1.7-8.2); BASOPHILS % (AUTO) 1.4 % (0-2); EOSINOPHILS % (AUTO) 0.2 % (0-6); HEMATOCRIT 34.6 % (37.9-51.0); LYMPHOCYTES % (AUTO) 24.7 % (13-45); MEAN CORPUSCULAR HEMOGLOBIN 32.9 pg (27.0-33.4); MEAN CORPUSCULAR HGB CONC 34.6 g/dL (32.0-36.0); MEAN CORPUSCULAR VOLUME 95 fl (80-97); MONOCYTES % (AUTO) 7.1 % (3-13); PLATELET COUNT 132 10^3/uL (150-450); RED BLOOD COUNT 3.64 10^6/uL (4.35-5.55); RED CELL DISTRIBUTION WIDTH 15.7 % (11.5-14.0); SEGMENTED NEUTROPHILS % (AUTO) 66.6 % (42-78); TOTAL CELLS COUNTED % (AUTO) 100 %; WHITE BLOOD COUNT 6.9 10^3/uL (4.0-10.5)
[2017-08-12] MEDS ORDERED: PANTOPRAZOLE SODIUM 40 MG VIAL IV PRN (00:42)
[2017-08-12] MEDS ORDERED: PANTOPRAZOLE SODIUM 40 MG VIAL IV ONE (00:42)
[2017-08-12 01:06] LABS: ALANINE AMINOTRANSFERASE 29 U/L (21-72); ALBUMIN 4.2 g/dL (3.5-5.0); ALKALINE PHOSPHATASE 408 U/L (38-126); ASPARTATE AMINO TRANSFERASE 241 U/L (17-59); BILIRUBIN,DIRECT 2.8 mg/dL (0.0-0.4); BILIRUBIN,TOTAL 3.4 mg/dL (0.2-1.3); CALCIUM 8.8 mg/dL (8.4-10.2); CARBON DIOXIDE 28 mmol/L (22-30); CHLORIDE 87 mmol/L (98-107); CREATINE KINASE 279 U/L (55-170); GLUCOSE 100 mg/dL (75-110); LIPASE 115.6 U/L (23-300); TOTAL PROTEIN 8.1 g/dL (6.3-8.2)
[2017-08-12 01:08] LABS: BLOOD UREA NITROGEN < 2 mg/dL (7-20)
[2017-08-12 01:19] LABS: ALCOHOL 364 mg/dL (NONE DETECTED); POTASSIUM 2.8 mmol/L (3.6-5.0)
[2017-08-12 01:22] LABS: ANION GAP 26 (5-19)
[2017-08-12 01:23] LABS: CREATINE KINASE MB 1.71 ng/mL (<4.55); TROPONIN I < 0.012 ng/mL
[2017-08-12] MEDS ORDERED: POTASSIUM CHLORIDE 10 MEQ TABLET.SA PO ONE (01:33)
[2017-08-12] MEDS ORDERED: MAGNESIUM OXIDE 400 MG TABLET PO ONE (01:34)
[2017-08-12] MEDS ORDERED: POTASSI CL 20 MEQ/50 ML RIDER 20 MEQ/50 ML RTUPB IV ONE (01:34)
[2017-08-12] MEDS ORDERED: METOCLOPRAMIDE HCL ORAL SOLN 10 MG/10 ML UDCUP PO ONE (01:56)
[2017-08-12] MEDS ORDERED: LIDOCAINE 2% VISCOUS SOLN 20 ML UDCUP PO ONE (01:56)
[2017-08-12] MEDS ORDERED: MAG HYDROX/AL HYDROX/SIMETH SUSP 30 ML UDCUP PO ONE (01:56)
[2017-08-12] MEDS ORDERED: PROMETHAZINE HCL INJ 25 MG/1 ML VIAL IV ONE (02:05)
[2017-08-12] MEDS ORDERED: NORMAL SALINE 1000 ML 1,000 ML IV ONE (02:22)
[2017-08-12] MEDS ORDERED: DIAZEPAM INJ 10 MG/2 ML DISP.SYRIN IV ONE ×3 (02:35→06:08)
[2017-08-12] MEDS: MAGNESIUM SULFATE/D5W 1 GM/100 ML RTUPB IV SCH ×2 (02:37→04:10)
[2017-08-12] MEDS ORDERED: METOCLOPRAMIDE HCL INJ/PF 10 MG/2 ML SDV IV ONE (06:08)
[2017-08-12] MEDS ORDERED: SILVER NITRATE APPLICATOR 1 APPLIC STICK..EA. 10/PACKAGE TOP ONE (06:19)
--- NOTE | 2017-08-12 06:45 | EKG REPORT ---
SEVERITY:- ABNORMAL ECG - SINUS TACHYCARDIA BORDERLINE T ABNORMALITIES, INFERIOR LEADS PROLONGED QT INTERVAL : Confirmed by: Rory Valadez MD 12-Aug-2017 06:45:00
[2017-08-12 07:46] LABS: URINE AMPHETAMINES SCREEN NEGATIVE; URINE BARBITURATES SCREEN UNCONFIRMED POSITIVE; URINE BENZODIAZEPINES SCREEN NEGATIVE; URINE COCAINE SCREEN NEGATIVE; URINE MARIJUANA (THC) SCREEN UNCONFIRMED POSITIVE; URINE METHADONE SCREEN NEGATIVE; URINE PHENCYCLIDINE SCREEN NEGATIVE
[2017-08-12] MEDS ORDERED: HYDROXYZINE PAMOATE 50 MG CAPSULE PO PRN (09:01)
[2017-08-12] MEDS ORDERED: LORAZEPAM INJ 2 MG/1 ML VIAL IV ONE (09:04)
[2017-08-12 09:55] LABS: APPEARANCE,URINE CLEAR; BILIRUBIN,URINE NEGATIVE (NEGATIVE); COLOR,URINE AMBER; GLUCOSE, URINE NEGATIVE (NEGATIVE); KETONES,URINE NEGATIVE (NEGATIVE); LEUKOCYTE ESTERASE,URINE NEGATIVE (NEGATIVE); NITRITE,URINE NEGATIVE (NEGATIVE); PROTEIN,URINE NEGATIVE (NEGATIVE); TRIPLE PHOSPHATE CRYSTAL,URINE FEW /HPF; URINE SPECIFIC GRAVITY 1.011
[2017-08-12] MEDS: LACTULOSE SYRUP 20 GM/30 ML UDCUP PO SCH ×2 (10:31→18:48)
[2017-08-12] MEDS: ENOXAPARIN SODIUM INJ 40 MG/0.4 ML DISP.SYRIN SUBCUT SCH (10:31)
[2017-08-12] MEDS: PANTOPRAZOLE SODIUM 40 MG VIAL IV SCH ×2 (10:32→22:26)
[2017-08-12] MEDS: THIAMINE HCL 100 MG TABLET PO SCH (10:32)
[2017-08-12] MEDS: FOLIC ACID 1 MG TABLET PO SCH (10:32)
[2017-08-12] MEDS: MAGNESIUM OXIDE 400 MG TABLET PO SCH ×2 (10:32→18:48)
[2017-08-12] MEDS: NICOTINE 21 MG/24 HR PATCH.TD24 TD SCH (10:34)
--- NOTE | 2017-08-12 10:36 | RADIOLOGY REPORT (SQ) ---
EXAM DESCRIPTION: CT ABD/PELVIS WITH IV ONLY COMPLETED DATE/TIME: 08/12/2017 10:05 am REASON FOR STUDY: abd pain, abd distention, ETOH liver dz COMPARISON: 05/27/2017 TECHNIQUE: CT scan of the abdomen and pelvis performed using helical scanning technique with dynamic intravenous contrast injection. No oral contrast. Images reviewed with lung, soft tissue, and bone windows. Reconstructed coronal and sagittal MPR images reviewed. Delayed images for evaluation of the urinary system also acquired. All images stored on PACS. All CT scanners at this facility use dose modulation, iterative reconstruction, and/or weight based d osing when appropriate to reduce radiation dose to as low as reasonably achievable (ALARA). [facility]: Dose Right [facility]: CareDose [facility]: Dose Right [facility]: Teradose 4D [facility]: QHB HOLDINGS CONTRAST TYPE AND DOSE: contrast/concentration: Isovue 370.00 mg/ml; Total Contrast Delivered: 91.0 ml; Total Saline Delivered: 62.4 ml RENAL FUNCTION: Creatinine 0.48 RADIATION DOSE: CT Rad equipment meets quality standard of care and radiation dose reduction techniq ues were employed. CTDIvol: 11.4 - 13.1 mGy. DLP: 1372 mGy-cm.. LIMITATIONS: None. FINDINGS: LOWER CHEST: No significant findings. No nodules or infiltrates. LIVER: Again there is hepatomegaly with heterogeneous density in the liver consistent with the patien t's clinical history of hepatic cirrhosis. . No masses. No dilated ducts. SPLEEN: There is borderline splenomegaly. No focal lesions. PANCREAS: No masses. No significant calcifications. No adjacent inflammation or peripancreatic fluid collections. Pancreatic duct not dilated. GALLBLADDER: No identified stones by CT criteria. No inflammatory changes to suggest cholecystitis. ADRENAL GLANDS: No significant masses or asymmetry. RIGHT KIDNEY AND URETER: No solid masses. No significant calcifications. No hydronephrosis or hyd roureter. LEFT KIDNEY AND URETER: No solid masses. No significant calcifications. No hydronephrosis or hydr oureter. AORTA AND VESSELS: No aneurysm. No dissection. Renal arteries, SMA, celiac without stenosis. RETROPERITONEUM: No retroperitoneal adenopathy, hemorrhage or masses. BOWEL AND PERITONEAL CAVITY: No masses or inflammatory changes. No free fluid or peritoneal masses. APPENDIX: Normal. PELVIS: No mass. No free fluid. Normal bladder. ABDOMINAL WALL: No masses. No hernias. BONES: No significant or acute findings. OTHER: No other significant finding. IMPRESSION: There is patent megaly with heterogeneous density in the liver consistent with the patie nt's clinical history of hepatic cirrhosis. No focal hepatic abnormalities are identified. There is borderline splenomegaly without focal abnormalities being identified. Other findings as noted above TECHNICAL DOCUMENTATION: JOB ID: [id number] Quality ID # [id number]: Final reports with documentation of one or more dose reduction techniques (e.g., Au tomated exposure control, adjustment of the mA and/or kV according to patient size, use of iterative reconstruction technique) 2010 [employer]- All Rights Reserved Reading location - IP/workstation name: [email or web address]
[2017-08-12 10:39] LABS: ABSOLUTE BASOPHILS # (AUTO) 0.1 10^3/uL (0.0-0.2); ABSOLUTE MONOCYTES (AUTO) 0.5 10^3/uL (0.1-1.4); ABSOLUTE NEUT (AUTO) 3.9 10^3/uL (1.7-8.2); BASOPHILS % (AUTO) 1.2 % (0-2); EOSINOPHILS % (AUTO) 0.2 % (0-6); HEMATOCRIT 32.8 % (37.9-51.0); HEMOGLOBIN 11.3 g/dL (13.5-17.0); MEAN CORPUSCULAR HGB CONC 34.3 g/dL (32.0-36.0); MEAN CORPUSCULAR VOLUME 96 fl (80-97); MONOCYTES % (AUTO) 8.8 % (3-13); RED BLOOD COUNT 3.41 10^6/uL (4.35-5.55); RED CELL DISTRIBUTION WIDTH 16.6 % (11.5-14.0); SEGMENTED NEUTROPHILS % (AUTO) 71.8 % (42-78); TOTAL CELLS COUNTED % (AUTO) 100 %; WHITE BLOOD COUNT 5.4 10^3/uL (4.0-10.5)
[2017-08-12 10:58] LABS: ALANINE AMINOTRANSFERASE 23 U/L (21-72); ALBUMIN 3.8 g/dL (3.5-5.0); ALKALINE PHOSPHATASE 372 U/L (38-126); ASPARTATE AMINO TRANSFERASE 233 U/L (17-59); BILIRUBIN,DIRECT 3.1 mg/dL (0.0-0.4); BILIRUBIN,TOTAL 3.8 mg/dL (0.2-1.3); CALCIUM 8.3 mg/dL (8.4-10.2); GLUCOSE 82 mg/dL (75-110); PHOSPHORUS 3.4 mg/dL (2.5-4.5); POTASSIUM 3.5 mmol/L (3.6-5.0); TOTAL PROTEIN 7.3 g/dL (6.3-8.2)
--- NOTE | 2017-08-12 11:00 | PDOC H&P ---
History of Present Illness Admission Date/PCP: 08/12/17 07:27 History of Present Illness: RAMBO MARTINEZ is a 32 year old male who presented to the emergency room with increased abdominal pain and chest pain. The patient's past medical history significant for alcohol abuse and polysubstance abuse. He has issues with chronic pancreatitis, hypertension, untreated hepatitis C and alcoholic cirrhosis. The patient reported increased abdominal pain for 2 days as well as multiple episodes of vomiting. The last time he vomited he had bright red blood in his emesis. He states he also has had a couple of loose stools but no intractable diarrhea. He has had no fever chills. No recent upper respiratory illness. He states he is having abdominal pain as well as back pain. He states he also has pain in his chest and feels as if he has heart palpitations at times. He states that he has no urinary complaints at this time. The patient does admit to drinking alcohol on the day of admission. At this point he states that he does not think that he can tolerate alcohol anymore because it just tears his stomach. He states that he would like for me to detox him here in the hospital. Past Medical History Cardiac Medical History: Reports: Hyperlipidema, Hypertension Pulmonary Medical History: Reports: Bronchitis EENT Medical History: Reports: None Neurological Medical History: Denies: Seizures Endocrine Medical History: Reports: None Renal/ Medical History: Reports: None Malignancy Medical History: Reports: None GI Medical History: Reports: Cirrhosis, Hepatitis - Hepatitis-C Musculoskeltal Medical History: Reports: Arthritis, Gout Skin Medical History: Reports: None Psychiatric Medical History: Reports: Alcohol Dependency, Bipolar Disorder, Post Traumatic Stress Disorder, Substance Abuse, Tobacco Dependency Denies: Depression Traumatic Medical History: Reports: None Hematology: Reports: None Infectious Medical History: Reports: Hepatitis C Past Surgical History Past Surgical History: Reports: Orthopedic Surgery - R hand Social History Information Source: Patient Smoking Status: Current Every Day Smoker Frequency of Alcohol Use: Heavy Hx Recreational Drug Use: Yes Drugs: Marijuana, Other - He states he took Vicodin earlier this week for his abdominal pain. He states that he has not been using heroin recently. He also denies cocaine use recently although he has had this in the past Hx Prescription Drug Abuse: Yes - Advance Directive Resuscitation Status: Full Code Family History Family History: CAD, CVA, Hyperlipidemia, Hypertension, Malignancy, Thyroid Disfunction Parental Family History Reviewed: Yes Children Family History Reviewed: Yes Sibling(s) Family History Reviewed.: Yes Medication/Allergy Home Medications: No Home Medications 08/12/17 Allergies/Adverse Reactions: carisoprodol [From Soma] Allergy (Verified 06/26/17 16:38) Sulfa (Sulfonamide Antibiotics) Allergy (Verified 06/26/17 16:38) Review of Systems Constitutional: PRESENT: as per HPI, fatigue Eyes: ABSENT: visual disturbances Ears: ABSENT: hearing changes Cardiovascular: PRESENT: chest pain, palpitations. ABSENT: dyspnea on exertion , edema, orthropnea Respiratory: ABSENT: cough, dyspnea, hemoptysis Gastrointestinal: PRESENT: abdominal pain, bloating, diarrhea, hematemesis, melena, nausea, vomiting Genitourinary: ABSENT: dysuria, hematuria Musculoskeletal: PRESENT: back pain Integumentary: ABSENT: rash, wounds Neurological: ABSENT: abnormal gait, abnormal speech, confusion, dizziness, focal weakness, syncope Psychiatric: PRESENT: anxiety, depression Endocrine: ABSENT: cold intolerance, heat intolerance, polydipsia, polyuria Hematologic/Lymphatic: ABSENT: easy bleeding, easy bruising Physical Exam Vital Signs: Temp Pulse Resp BP Pulse Ox 98.7 F 126 H 22 H 136/81 H 94 08/11/17 22:04 08/11/17 22:04 08/12/17 06:28 08/12/17 06:28 08/12/17 06:28 General appearance: PRESENT: cooperative - Chronically ill-appearing. He has a significant tremor and appears to be agitated., disheveled, other Head exam: PRESENT: normocephalic, other - The patient has a left black eye Eye exam: PRESENT: conjunctiva pink, EOMI, PERRLA. ABSENT: scleral icterus Mouth exam: PRESENT: dry mucosa, tongue midline Neck exam: ABSENT: carotid bruit, JVD, lymphadenopathy, thyromegaly Respiratory exam: PRESENT: clear to auscultation jason. ABSENT: rales, rhonchi, wheezes Cardiovascular exam: PRESENT: +S1, +S2, tachycardia. ABSENT: diastolic murmur, systolic murmur Pulses: PRESENT: normal dorsalis pedis pul Vascular exam: PRESENT: normal capillary refill GI/Abdominal exam: PRESENT: guarding, hypoactive bowel sounds, tenderness Rectal exam: PRESENT: deferred Extremities exam: PRESENT: full ROM. ABSENT: calf tenderness, clubbing, pedal edema Musculoskeletal exam: PRESENT: ambulatory Neurological exam: PRESENT: alert, awake, oriented to person, oriented to place , oriented to time, oriented to situation, CN II-XII grossly intact. ABSENT: motor sensory deficit Psychiatric exam: PRESENT: agitated, anxious, depressed Skin exam: PRESENT: dry, intact, other - The patient has a black eye and multiple ecchymosis is on his body. He also has several tattoos. Results Impressions: Chest X-Ray 08/11/17 22:56 IMPRESSION: No acute cardiopulmonary findings. Abdomen/Pelvis CT 08/12/17 08:54 IMPRESSION: There is patent megaly with heterogeneous density in the liver consistent with the patient's clinical history of hepatic cirrhosis. No focal hepatic abnormalities are identified. There is borderline splenomegaly without focal abnormalities being identified. Other findings as noted above Assessment & Plan - Diagnosis (1) Abdominal pain Qualifiers: Abdominal location: generalized Qualified Code(s): R10.84 - Generalized abdominal pain Is this a current diagnosis for this admission?: Yes Plan: Likely due to his alcoholic liver disease or pancreatitis. I will get a CT scan of the abdomen and pelvis for further evaluation. He is requesting narcotic pain medication for his pain. He will have tramadol available as needed. Would like to stay away from narcotics at this point. (2) Alcohol withdrawal Is this a current diagnosis for this admission?: Yes Plan: The patient already has a significant tremor. I am going to give him 2 mg of IV Ativan and schedule I milligram of IV Ativan every 6 hours with as needed Ativan every 3 hours. I suspect we are going to have to go up on the dosages as he seems to have quite a tolerance. The patient does express a desire to go through alcohol withdrawal in the setting of the hospital and would like further rehab. The discharge planners have been consulted. (3) Hematemesis Is this a current diagnosis for this admission?: Yes Plan: I will recheck labs this morning to make sure that his hemoglobin is stable. He has had no further vomiting since he came to the hospital. I am going to consult the GI service. His last endoscopy was last October 2016 (4) Alcoholic liver disease Is this a current diagnosis for this admission?: Yes Plan: He has elevated liver function tests. He will be placed on thiamine and folic acid as well as a multivitamin. We will get GI to take a look at the patient. I have discussed with him the recommendation is for absolute cessation from alcohol going forward (5) Hepatitis C Is this a current diagnosis for this admission?: Yes Plan: The patient reports that he has a history of hepatitis C that is never been treated. (6) Hyperammonemia Is this a current diagnosis for this admission?: Yes Plan: The patient does not seem to have any altered mental status and is alert and oriented and answers questions recently. We will put him on twice daily lactulose. (7) Hypokalemia Is this a current diagnosis for this admission?: Yes Plan: Repleted. He will have a level checked again this morning tomorrow. (8) Hypomagnesemia Is this a current diagnosis for this admission?: Yes Plan: He will be given 4 g of magnesium sulfate today. He will have a magnesium level checked in the morning (9) Anemia Is this a current diagnosis for this admission?: Yes Plan: The patient has a normocytic anemia consistent with chronic disease. I am repeating a CBC this morning in light of his recent hematocrit emesis to make sure he has not dropped. (10) Sinus tachycardia Is this a current diagnosis for this admission?: Yes Plan: Likely due to alcohol withdrawal. He will remain on a remote monitor for now (11) Alcohol abuse Is this a current diagnosis for this admission?: Yes Plan: He will likely need inpatient treatment again. The discharge planners have been consulted. I do not know if anybody has ever discussed the [facility] program in [place]. This is a 2 year program that is free with a very good success rate. I somehow suspect that he would not be interested in a long-term program but certainly this would be of benefit for him. (12) Polysubstance abuse Is this a current diagnosis for this admission?: Yes Plan: Urine drug screen was positive for opiates, barbiturates and marijuana. He had a markedly elevated alcohol level at the time of admission. (13) Bipolar disorder Is this a current diagnosis for this admission?: Yes Plan: In reviewing his records he does have a history of bipolar disorder. Currently not on any medications. I have consulted psychiatry for their recommendations. He may benefit from treatment. (14) Full code status Is this a current diagnosis for this admission?: Yes - Time Time Spent: 50 to 70 Minutes - Inpatient Certification Medical Necessity: Need Close Monitoring Due to Risk of Patient Decompensation, Need For IV Fluids, Other - Inpatient hospitalization remains necessary. I suspect this patient will be in the hospital for greater than 2 midnights. He has expressed a desire to go through alcohol withdrawal here in the hospital and is already exhibiting significant symptoms. He also has significant abdominal pain with hematemesis. He needs evaluation from gastroenterology and close monitoring of his hemoglobin. Timing of disposition will be determined by his clinical course. Ultimately the patient may require inpatient alcohol rehab versus inpatient psychiatric treatment.
[2017-08-12 11:05] LABS: BLOOD UREA NITROGEN < 2 mg/dL (7-20)
[2017-08-12 11:11] LABS: CREATINE KINASE MB 1.71 ng/mL (<4.55)
[2017-08-12 11:12] LABS: CARBON DIOXIDE 21 mmol/L (22-30); CHLORIDE 94 mmol/L (98-107); SODIUM 139.9 mmol/L (137-145)
[2017-08-12 11:14] LABS: PLATELET COUNT 99 10^3/uL (150-450)
[2017-08-12 11:15] LABS: TROPONIN I < 0.012 ng/mL
[2017-08-12] MEDS: LORAZEPAM INJ 2 MG/1 ML VIAL IV SCH ×2 (11:16→18:00)
[2017-08-12 11:17] LABS: ANION GAP 25 (5-19)
[2017-08-12] MEDS: LORAZEPAM INJ 2 MG/1 ML VIAL IV PRN ×4 (12:54→22:26)
[2017-08-12] MEDS ORDERED: METRONIDAZOLE 500 MG TABLET PO SCH (14:00)
[2017-08-12] MEDS: CLONIDINE HCL 0.1 MG TABLET PO SCH ×2 (15:11→22:26)
--- NOTE | 2017-08-12 16:43 | PSYCHOLOGICAL NOTE ---
Psych Note - Psych Note Psych Note: Reason for consult: substance abuse Patient is a 32-year-old male with a past medical history significant for alcohol abuse, cocaine abuse, chronic pancreatitis, hypertension, hepatitis C, and cirrhosis who presents to the ED complaining of epigastric abdominal pain 2 days Clinician unable to wake patient evaluation will occur at a later time. Chart review conducted: Patient was seen by this clinician on 06/30/2017. At that time he disclosed he has been to the [facility] multiple times "I have been there 16 or 17 times." He was working with [facility] at that time for continued assistance in placement for detox. Medication recommendations per [facility]'s contracted psychiatrist, MD Santhosh, are as follows: 1. Depakote 500 mg twice daily 2. BuSpar 10 mg twice daily Diagnosis: 303.90 (F10.20) alcohol use disorder; severe per history provided by patient 292.9 (F11.99) unspecified opiate related disorder per history provided by patient 292.9 (1 4.99) unspecified stimulant related disorder; cocaine Impression\\plan: Medication recommendations have been provided. Patient was unable to be aroused for evaluation during his stay down in [facility] ED. Evaluation will occur at a later time. Dr. Champion was consulted and the care and management this patient; attending physician is agreement with her conditions and disposition.
[2017-08-12 16:55] LABS: CREATINE KINASE MB 1.32 ng/mL (<4.55)
[2017-08-12 17:02] LABS: TROPONIN I < 0.012 ng/mL
[2017-08-12 22:56] LABS: CREATINE KINASE MB 0.86 ng/mL (<4.55)
[2017-08-12 22:58] LABS: TROPONIN I < 0.012 ng/mL
[2017-08-13] MEDS: LORAZEPAM INJ 2 MG/1 ML VIAL IV SCH ×5 (00:35→23:48)
[2017-08-13] MEDS: LORAZEPAM INJ 2 MG/1 ML VIAL IV PRN ×5 (03:53→20:36)
[2017-08-13] MEDS: TRAMADOL HCL 50 MG TABLET PO PRN ×2 (04:00→20:36)
[2017-08-13] MEDS: CLONIDINE HCL 0.1 MG TABLET PO SCH ×3 (05:47→22:02)
[2017-08-13 06:04] LABS: HEMATOCRIT 31.2 % (37.9-51.0); HEMOGLOBIN 10.8 g/dL (13.5-17.0); MEAN CORPUSCULAR HEMOGLOBIN 33.3 pg (27.0-33.4); MEAN CORPUSCULAR HGB CONC 34.6 g/dL (32.0-36.0); MEAN CORPUSCULAR VOLUME 96 fl (80-97); RED BLOOD COUNT 3.24 10^6/uL (4.35-5.55); RED CELL DISTRIBUTION WIDTH 16.2 % (11.5-14.0)
[2017-08-13 06:30] LABS: INTERNATIONAL RATION (INR) 1.09; PROTHROMBIN TIME 14.9 SEC (11.4-15.4)
[2017-08-13 06:39] LABS: ALANINE AMINOTRANSFERASE 36 U/L (21-72); ALBUMIN 3.7 g/dL (3.5-5.0); ALKALINE PHOSPHATASE 379 U/L (38-126); ANION GAP 11 (5-19); ASPARTATE AMINO TRANSFERASE 271 U/L (17-59); BILIRUBIN,DIRECT 5.5 mg/dL (0.0-0.4); CALCIUM 8.4 mg/dL (8.4-10.2); CARBON DIOXIDE 26 mmol/L (22-30); CHLORIDE 97 mmol/L (98-107); CHOLESTEROL 276.67 mg/dL (0-200); GLUCOSE 85 mg/dL (75-110); LIPASE 168.9 U/L (23-300); POTASSIUM 3.4 mmol/L (3.6-5.0); SODIUM 133.7 mmol/L (137-145); TOTAL PROTEIN 7.9 g/dL (6.3-8.2)
[2017-08-13 06:47] LABS: BLOOD UREA NITROGEN < 2 mg/dL (7-20); TRIGLYCERIDES 650 mg/dL (<150)
[2017-08-13 06:48] LABS: PLATELET COUNT 70 10^3/uL (150-450)
[2017-08-13 06:49] LABS: DIRECT LDL 183 mg/dL (<100)
[2017-08-13 06:54] LABS: FREE T4 (FREE THYROXINE) 1.65 ng/dL (0.78-2.19)
[2017-08-13 07:06] LABS: BILIRUBIN,TOTAL 6.7 mg/dL (0.2-1.3)
[2017-08-13 07:09] LABS: THYROID STIMULATING HORMONE 3.75 uIU/mL (0.47-4.68)
[2017-08-13] MEDS: ENOXAPARIN SODIUM INJ 40 MG/0.4 ML DISP.SYRIN SUBCUT SCH (09:17)
[2017-08-13] MEDS: LACTULOSE SYRUP 20 GM/30 ML UDCUP PO SCH ×2 (09:33→17:05)
[2017-08-13] MEDS: PANTOPRAZOLE SODIUM 40 MG VIAL IV SCH ×2 (09:33→22:02)
[2017-08-13] MEDS: FOLIC ACID 1 MG TABLET PO SCH (09:33)
[2017-08-13] MEDS: MAGNESIUM OXIDE 400 MG TABLET PO SCH ×2 (09:33→17:05)
[2017-08-13] MEDS: NICOTINE 21 MG/24 HR PATCH.TD24 TD SCH (09:33)
[2017-08-13] MEDS: THIAMINE HCL 100 MG TABLET PO SCH (09:33)
[2017-08-13] MEDS: MULTIVITAMIN TABLET PO SCH (12:53)
--- NOTE | 2017-08-13 17:48 | PDOC PROGRESS REPORT ---
Subjective Progress Note for:: 08/13/17 Subjective:: She also been seen by psychiatry and recommendation was for Depakote 500 mg twice a day as well as BuSpar 10 mg twice a day. Patient was admitted with polysubstance abuse including alcohol abuse. He also has chronic pancreatitis, hypertension, untreated hepatitis C and alcoholic cirrhosis Reason For Visit: ABDOMINAL PAIN,ETOH WITHDRAWAL Physical Exam Vital Signs: Temp Pulse Resp BP Pulse Ox 98.4 F 122 H 20 136/73 H 93 08/13/17 11:26 08/13/17 17:32 08/13/17 11:26 08/13/17 11:26 08/13/17 11:26 Intake & Output 08/12/17 08/13/17 08/14/17 06:59 06:59 06:59 Intake Total 35 30 Balance 35 30 Weight 86.183 kg General appearance: PRESENT: no acute distress Head exam: PRESENT: atraumatic Mouth exam: PRESENT: dry mucosa Neck exam: PRESENT: carotid bruit Respiratory exam: PRESENT: clear to auscultation jason. ABSENT: rales, rhonchi, wheezes Cardiovascular exam: PRESENT: RRR. ABSENT: diastolic murmur, rubs, systolic murmur Pulses: PRESENT: normal carotid pulses Rectal exam: PRESENT: deferred Extremities exam: PRESENT: calf tenderness Musculoskeletal exam: PRESENT: ambulatory, deformity Neurological exam: PRESENT: alert, awake, oriented to person, oriented to place , oriented to time, oriented to situation, CN II-XII grossly intact. ABSENT: motor sensory deficit Psychiatric exam: PRESENT: agitated Results Laboratory Results: 08/13/17 05:28 08/13/17 05:28 08/13/17 08/13/17 08/13/17 05:28 05:28 05:28 WBC 5.0 RBC 3.24 L Hgb 10.8 L Hct 31.2 L MCV 96 MCH 33.3 MCHC 34.6 RDW 16.2 H Plt Count 70 L Sodium 133.7 L Potassium 3.4 L Chloride 97 L Carbon Dioxide 26 Anion Gap 11 BUN < 2 L Creatinine 0.48 L Est GFR ( Amer) > 60 Est GFR (Non-Af Amer) > 60 Glucose 85 Calcium 8.4 Total Bilirubin 6.7 H D AST 271 H ALT 36 Alkaline Phosphatase 379 H Ammonia 92.7 H Total Protein 7.9 Albumin 3.7 Triglycerides 650 H Cholesterol 276.67 H LDL Cholesterol Direct 183 H VLDL Cholesterol UNABLE TO CALCULATE HDL Cholesterol 23 L Lipase 168.9 TSH Free T4 08/13/17 05:28 WBC RBC Hgb Hct MCV MCH MCHC RDW Plt Count Sodium Potassium Chloride Carbon Dioxide Anion Gap BUN Creatinine Est GFR ( Amer) Est GFR (Non-Af Amer) Glucose Calcium Total Bilirubin AST ALT Alkaline Phosphatase Ammonia Total Protein Albumin Triglycerides Cholesterol LDL Cholesterol Direct VLDL Cholesterol HDL Cholesterol Lipase TSH 3.75 Free T4 1.65 08/12/17 08/12/17 08/12/17 10:20 10:20 16:02 Creatine Kinase 395 H 403 H CK-MB (CK-2) 1.71 Troponin I < 0.012 08/12/17 08/12/17 16:02 22:20 Creatine Kinase CK-MB (CK-2) 1.32 0.86 Troponin I < 0.012 < 0.012 Impressions: Chest X-Ray 08/11/17 22:56 IMPRESSION: No acute cardiopulmonary findings. Abdomen/Pelvis CT 08/12/17 08:54 IMPRESSION: There is patent megaly with heterogeneous density in the liver consistent with the patient's clinical history of hepatic cirrhosis. No focal hepatic abnormalities are identified. There is borderline splenomegaly without focal abnormalities being identified. Other findings as noted above Assessment & Plan - Time Time Spent with patient: 15-24 minutes Medications reviewed and adjusted accordingly: Yes Anticipated discharge: Home - Plan Summary Plan Summary: Abdominal pain likely due to alcoholic liver disease or proctitis. Pancreatitis. 2. Alcohol withdrawal with delirium tremens. He is on Ativan scheduled and as needed. He would like to be discharged to alcohol rehab facility 3 alcoholic liver disease secondary to his alcohol abuse. Will trend transaminases #4 hepatitis C follow-up with outpatient 5. Elevated ammonia level patient is asymptomatic 6. Hypokalemia follow-up on potassium level #7 hypomagnesemia secondary to alcohol abuse 8. Anemia
[2017-08-13] MEDS ORDERED: POTASSIUM CHLORIDE 10 MEQ TABLET.SA PO ONE (18:28)
[2017-08-13] MEDS: NYSTATIN 500000 UNIT/5 ML UDCUP PO SCH (20:36)
[2017-08-14] MEDS: LORAZEPAM INJ 2 MG/1 ML VIAL IV PRN ×4 (02:45→21:39)
[2017-08-14] MEDS: NYSTATIN 500000 UNIT/5 ML UDCUP PO SCH ×4 (02:45→20:42)
[2017-08-14 06:04] LABS: ALANINE AMINOTRANSFERASE 34 U/L (21-72); ALBUMIN 3.7 g/dL (3.5-5.0); ALKALINE PHOSPHATASE 328 U/L (38-126); ANION GAP 14 (5-19); ASPARTATE AMINO TRANSFERASE 202 U/L (17-59); BILIRUBIN,DIRECT 7.6 mg/dL (0.0-0.4); BILIRUBIN,TOTAL 8.9 mg/dL (0.2-1.3); BLOOD UREA NITROGEN 3 mg/dL (7-20); CALCIUM 9.1 mg/dL (8.4-10.2); CARBON DIOXIDE 25 mmol/L (22-30); CHLORIDE 99 mmol/L (98-107); GLUCOSE 103 mg/dL (75-110); POTASSIUM 3.9 mmol/L (3.6-5.0); SODIUM 138.3 mmol/L (137-145); TOTAL PROTEIN 7.5 g/dL (6.3-8.2)
[2017-08-14] MEDS: CLONIDINE HCL 0.1 MG TABLET PO SCH ×2 (06:07→13:22)
[2017-08-14] MEDS: LORAZEPAM INJ 2 MG/1 ML VIAL IV SCH ×3 (06:07→18:18)
[2017-08-14 06:26] LABS: INTERNATIONAL RATION (INR) 1.18; PROTHROMBIN TIME 15.8 SEC (11.4-15.4)
[2017-08-14] MEDS: LACTULOSE SYRUP 20 GM/30 ML UDCUP PO SCH ×2 (10:09→18:18)
[2017-08-14] MEDS: PANTOPRAZOLE SODIUM 40 MG VIAL IV SCH ×2 (10:10→21:39)
[2017-08-14] MEDS: MAGNESIUM OXIDE 400 MG TABLET PO SCH ×2 (10:10→18:18)
[2017-08-14] MEDS: NICOTINE 21 MG/24 HR PATCH.TD24 TD SCH (10:10)
[2017-08-14] MEDS: THIAMINE HCL 100 MG TABLET PO SCH (10:10)
[2017-08-14] MEDS: ENOXAPARIN SODIUM INJ 40 MG/0.4 ML DISP.SYRIN SUBCUT SCH (10:10)
[2017-08-14] MEDS: FOLIC ACID 1 MG TABLET PO SCH (10:10)
[2017-08-14] MEDS: MULTIVITAMIN TABLET PO SCH (12:27)
[2017-08-14] MEDS: ONDANSETRON HCL INJ/PF 4 MG/2 ML SDV IV PRN (13:32)
--- NOTE | 2017-08-14 17:14 | PDOC PROGRESS REPORT ---
Subjective Progress Note for:: 08/14/17 Subjective:: She also been seen by psychiatry and recommendation was for Depakote 500 mg twice a day as well as BuSpar 10 mg twice a day. Patient was admitted with polysubstance abuse including alcohol abuse. He also has chronic pancreatitis, hypertension, untreated hepatitis C and alcoholic cirrhosis Patient still c/o pain and requesting pain pills Reason For Visit: ABDOMINAL PAIN,ETOH WITHDRAWAL Physical Exam Vital Signs: Temp Pulse Resp BP Pulse Ox 99.1 F 121 H 20 93/56 L 92 08/14/17 11:58 08/14/17 11:58 08/14/17 11:58 08/14/17 11:58 08/14/17 11:58 Intake & Output 08/13/17 08/14/17 08/15/17 06:59 06:59 06:59 Intake Total 35 1062 474 Balance 35 1062 474 Weight 86.183 kg 86.5 kg General appearance: PRESENT: no acute distress Head exam: PRESENT: atraumatic Ear exam: PRESENT: bleeding Neck exam: PRESENT: carotid bruit Respiratory exam: PRESENT: clear to auscultation jason. ABSENT: rales, rhonchi, wheezes Cardiovascular exam: PRESENT: RRR. ABSENT: diastolic murmur, rubs, systolic murmur GI/Abdominal exam: PRESENT: normal bowel sounds, soft. ABSENT: distended, guarding, mass, organolmegaly, rebound, tenderness Rectal exam: PRESENT: deferred Extremities exam: PRESENT: full ROM. ABSENT: calf tenderness, clubbing, pedal edema Musculoskeletal exam: PRESENT: ambulatory Neurological exam: PRESENT: alert, awake, oriented to person, oriented to place , oriented to time, oriented to situation, CN II-XII grossly intact. ABSENT: motor sensory deficit Psychiatric exam: PRESENT: appropriate affect Results Laboratory Results: 08/13/17 05:28 08/14/17 05:14 08/14/17 05:14 Sodium 138.3 Potassium 3.9 Chloride 99 Carbon Dioxide 25 Anion Gap 14 BUN 3 L Creatinine 0.55 Est GFR ( Amer) > 60 Est GFR (Non-Af Amer) > 60 Glucose 103 Calcium 9.1 Total Bilirubin 8.9 H AST 202 H ALT 34 Alkaline Phosphatase 328 H Total Protein 7.5 Albumin 3.7 08/12/17 08/12/17 08/12/17 10:20 10:20 16:02 Creatine Kinase 395 H 403 H CK-MB (CK-2) 1.71 Troponin I < 0.012 08/12/17 08/12/17 16:02 22:20 Creatine Kinase CK-MB (CK-2) 1.32 0.86 Troponin I < 0.012 < 0.012 Impressions: Chest X-Ray 08/11/17 22:56 IMPRESSION: No acute cardiopulmonary findings. Abdomen/Pelvis CT 08/12/17 08:54 IMPRESSION: There is patent megaly with heterogeneous density in the liver consistent with the patient's clinical history of hepatic cirrhosis. No focal hepatic abnormalities are identified. There is borderline splenomegaly without focal abnormalities being identified. Other findings as noted above Assessment & Plan - Inpatient Certification Based on my medical assessment, after consideration of the patient's comorbidities, presenting symptoms, or acuity I expect that the services needed warrant INPATIENT care.: Yes I certify that my determination is in accordance with my understanding of Medicare's requirements for reasonable and necessary INPATIENT services [42 CFR 412.3e].: Yes Medical Necessity: Need for Pain Control, Risk of Complication if Not Cared For in Hospital - Plan Summary Plan Summary: 1. Abdominal pain likely due to alcoholic liver disease or pancreatitis. Still c/o abdominal pain. 2. Alcohol withdrawal with delirium tremens. He is on Ativan scheduled and as needed. He would like to be discharged to alcohol rehab facility 3 alcoholic liver disease secondary to his alcohol abuse. Cont to trend transaminases #4 hepatitis C follow-up with outpatient GI 5. Elevated ammonia level patient is asymptomatic 6. Hypokalemia- replaced #7 hypomagnesemia secondary to alcohol abuse 8. Hypertriglyceridemia- Cholesterol lvel has been elevated for years reviewing his records. He is not on any meds probably noncompliance. Due to his kidney function will start him on Questran though I question his compliance
[2017-08-14] MEDS ORDERED: CHOLESTYRAMINE/ASPARTAME 4 GM PACKET ONE (21:54)
[2017-08-14] MEDS: CHOLESTYRAMINE/ASPARTAME 4 GM PACKET PO SCH (23:25)
[2017-08-15] MEDS: LORAZEPAM INJ 2 MG/1 ML VIAL IV SCH ×5 (00:50→23:31)
[2017-08-15] MEDS: NYSTATIN 500000 UNIT/5 ML UDCUP PO SCH ×4 (01:13→23:00)
[2017-08-15] MEDS: LORAZEPAM INJ 2 MG/1 ML VIAL IV PRN ×2 (03:43→15:34)
[2017-08-15] MEDS: ONDANSETRON HCL INJ/PF 4 MG/2 ML SDV IV PRN ×2 (07:03→13:53)
[2017-08-15 07:17] LABS: INTERNATIONAL RATION (INR) 1.16; PROTHROMBIN TIME 15.6 SEC (11.4-15.4)
[2017-08-15] MEDS: OXYCODONE-ACETAMINOPHEN 5-325 MG TABLET PO PRN ×3 (07:50→20:14)
[2017-08-15] MEDS: CHOLESTYRAMINE/ASPARTAME 4 GM PACKET PO SCH ×4 (09:22→23:29)
[2017-08-15] MEDS: FOLIC ACID 1 MG TABLET PO SCH (09:22)
[2017-08-15] MEDS: MAGNESIUM OXIDE 400 MG TABLET PO SCH ×2 (09:22→18:27)
[2017-08-15] MEDS: NICOTINE 21 MG/24 HR PATCH.TD24 TD SCH (09:22)
[2017-08-15] MEDS: LACTULOSE SYRUP 20 GM/30 ML UDCUP PO SCH ×2 (09:22→18:27)
[2017-08-15] MEDS: CLONIDINE HCL 0.1 MG TABLET PO SCH (09:22)
[2017-08-15] MEDS: THIAMINE HCL 100 MG TABLET PO SCH (09:22)
[2017-08-15] MEDS: ENOXAPARIN SODIUM INJ 40 MG/0.4 ML DISP.SYRIN SUBCUT SCH (09:23)
[2017-08-15] MEDS: MULTIVITAMIN TABLET PO SCH (11:46)
--- NOTE | 2017-08-15 18:25 | PDOC PROGRESS REPORT ---
Subjective Progress Note for:: 08/15/17 Subjective:: She also been seen by psychiatry and recommendation was for Depakote 500 mg twice a day as well as BuSpar 10 mg twice a day. Patient was admitted with polysubstance abuse including alcohol abuse. He also has chronic pancreatitis, hypertension, untreated hepatitis C and alcoholic cirrhosis Patient states he feels better today. His BP had been low so his meds were decreased. These can be restarted back Reason For Visit: ABDOMINAL PAIN,ETOH WITHDRAWAL Physical Exam Vital Signs: Temp Pulse Resp BP Pulse Ox 98.3 F 109 H 16 106/60 91 L 08/15/17 16:16 08/15/17 16:16 08/15/17 16:16 08/15/17 16:16 08/15/17 16:16 Intake & Output 08/14/17 08/15/17 08/16/17 06:59 06:59 06:59 Intake Total 1062 2672 750 Balance 1062 2672 750 Weight 86.5 kg 86.8 kg General appearance: PRESENT: no acute distress Head exam: PRESENT: other - L periorbital swelling and ecchymosis Eye exam: PRESENT: PERRLA Ear exam: PRESENT: normal external ear exam Neck exam: PRESENT: carotid bruit Respiratory exam: PRESENT: clear to auscultation jason. ABSENT: rales, rhonchi, wheezes Cardiovascular exam: PRESENT: RRR. ABSENT: diastolic murmur, rubs, systolic murmur Pulses: PRESENT: normal dorsalis pedis pul GI/Abdominal exam: PRESENT: normal bowel sounds, soft. ABSENT: distended, guarding, mass, organolmegaly, rebound, tenderness Rectal exam: PRESENT: deferred Neurological exam: PRESENT: alert, awake, oriented to time, oriented to situation Psychiatric exam: PRESENT: appropriate affect Results Laboratory Results: 08/13/17 05:28 08/14/17 05:14 08/12/17 08/12/17 08/12/17 10:20 10:20 16:02 Creatine Kinase 395 H 403 H CK-MB (CK-2) 1.71 Troponin I < 0.012 08/12/17 08/12/17 16:02 22:20 Creatine Kinase CK-MB (CK-2) 1.32 0.86 Troponin I < 0.012 < 0.012 Impressions: Chest X-Ray 08/11/17 22:56 IMPRESSION: No acute cardiopulmonary findings. Abdomen/Pelvis CT 08/12/17 08:54 IMPRESSION: There is patent megaly with heterogeneous density in the liver consistent with the patient's clinical history of hepatic cirrhosis. No focal hepatic abnormalities are identified. There is borderline splenomegaly without focal abnormalities being identified. Other findings as noted above Assessment & Plan - Time Time Spent with patient: 15-24 minutes Medications reviewed and adjusted accordingly: Yes Anticipated discharge: Home Within: within 72 hours - Plan Summary Plan Summary: 1. Abdominal pain likely due to alcoholic liver disease or pancreatitis. 2. Alcohol withdrawal with delirium tremens. He is on Ativan scheduled and as needed. He would like to be discharged to alcohol rehab facility 3 alcoholic liver disease secondary to his alcohol abuse. Cont to trend transaminases #4 hepatitis C follow-up with outpatient GI 5. Elevated ammonia level patient is asymptomatic 6. Hypokalemia- replaced #7 hypomagnesemia secondary to alcohol abuse 8. Hypertriglyceridemia- Started on Questran 9. Hypotension- hold antihypertensives, decrease benzo
[2017-08-16] MEDS: LORAZEPAM INJ 2 MG/1 ML VIAL IV PRN ×3 (00:30→20:44)
[2017-08-16] MEDS: OXYCODONE-ACETAMINOPHEN 5-325 MG TABLET PO PRN ×4 (01:47→23:44)
[2017-08-16] MEDS: NYSTATIN 500000 UNIT/5 ML UDCUP PO SCH ×4 (05:13→20:44)
[2017-08-16] MEDS: LORAZEPAM INJ 2 MG/1 ML VIAL IV SCH ×3 (07:03→18:16)
[2017-08-16 07:27] LABS: ABSOLUTE BASOPHILS # (AUTO) 0.1 10^3/uL (0.0-0.2); ABSOLUTE EOSINOPHILS # (AUTO) 0.1 10^3/uL (0.0-0.6); ABSOLUTE LYMPHOCYTES (AUTO) 1.2 10^3/uL (0.5-4.7); ABSOLUTE MONOCYTES (AUTO) 0.5 10^3/uL (0.1-1.4); ABSOLUTE NEUT (AUTO) 4.1 10^3/uL (1.7-8.2); BASOPHILS % (AUTO) 1.3 % (0-2); EOSINOPHILS % (AUTO) 1.6 % (0-6); HEMATOCRIT 29.3 % (37.9-51.0); LYMPHOCYTES % (AUTO) 19.8 % (13-45); MEAN CORPUSCULAR HEMOGLOBIN 33.5 pg (27.0-33.4); MEAN CORPUSCULAR HGB CONC 34.1 g/dL (32.0-36.0); MEAN CORPUSCULAR VOLUME 98 fl (80-97); MONOCYTES % (AUTO) 9.1 % (3-13); RED BLOOD COUNT 2.98 10^6/uL (4.35-5.55); RED CELL DISTRIBUTION WIDTH 16.8 % (11.5-14.0); SEGMENTED NEUTROPHILS % (AUTO) 68.2 % (42-78); TOTAL CELLS COUNTED % (AUTO) 100 %; WHITE BLOOD COUNT 6.1 10^3/uL (4.0-10.5)
[2017-08-16 07:35] LABS: ANION GAP 11 (5-19); BLOOD UREA NITROGEN 5 mg/dL (7-20); CALCIUM 8.9 mg/dL (8.4-10.2); CARBON DIOXIDE 23 mmol/L (22-30); CHLORIDE 102 mmol/L (98-107); GLUCOSE 80 mg/dL (75-110); POTASSIUM 3.6 mmol/L (3.6-5.0); SODIUM 136.3 mmol/L (137-145)
[2017-08-16 08:24] LABS: PLATELET COUNT 80 10^3/uL (150-450)
[2017-08-16] MEDS: THIAMINE HCL 100 MG TABLET PO SCH (09:46)
[2017-08-16] MEDS: FOLIC ACID 1 MG TABLET PO SCH (09:46)
[2017-08-16] MEDS: CHOLESTYRAMINE/ASPARTAME 4 GM PACKET PO SCH ×4 (09:46→22:38)
[2017-08-16] MEDS: LACTULOSE SYRUP 20 GM/30 ML UDCUP PO SCH ×2 (09:46→17:30)
[2017-08-16] MEDS: MAGNESIUM OXIDE 400 MG TABLET PO SCH ×2 (09:46→17:30)
[2017-08-16] MEDS: NICOTINE 21 MG/24 HR PATCH.TD24 TD SCH (09:46)
[2017-08-16] MEDS: CLONIDINE HCL 0.1 MG TABLET PO SCH (10:20)
[2017-08-16] MEDS: ENOXAPARIN SODIUM INJ 40 MG/0.4 ML DISP.SYRIN SUBCUT SCH (10:20)
[2017-08-16] MEDS: MULTIVITAMIN TABLET PO SCH (12:26)
--- NOTE | 2017-08-16 18:15 | PDOC PROGRESS REPORT ---
Subjective Progress Note for:: 08/16/17 Subjective:: Pt states that he is having abd pain. Nursing states that patient has been requesting for Ativan however patient has not required Ativan. Reason For Visit: ABDOMINAL PAIN,ETOH WITHDRAWAL Physical Exam Vital Signs: Temp Pulse Resp BP Pulse Ox 98.7 F 97 18 107/65 92 08/16/17 16:00 08/16/17 16:00 08/16/17 16:00 08/16/17 16:00 08/16/17 16:00 Intake & Output 08/15/17 08/16/17 08/17/17 06:59 06:59 06:59 Intake Total 2672 1480 Balance 2672 1480 Weight 86.8 kg 87.2 kg General appearance: PRESENT: no acute distress, well-developed, well-nourished Head exam: PRESENT: atraumatic, normocephalic Eye exam: PRESENT: conjunctiva pink, EOMI. ABSENT: scleral icterus Ear exam: PRESENT: normal external ear exam Mouth exam: PRESENT: moist, tongue midline Neck exam: ABSENT: carotid bruit, JVD, lymphadenopathy, thyromegaly Respiratory exam: PRESENT: clear to auscultation jason. ABSENT: rales, rhonchi, wheezes Cardiovascular exam: PRESENT: RRR. ABSENT: diastolic murmur, rubs, systolic murmur Pulses: PRESENT: normal dorsalis pedis pul Vascular exam: PRESENT: normal capillary refill GI/Abdominal exam: PRESENT: distended, normal bowel sounds, tenderness Rectal exam: PRESENT: deferred Extremities exam: PRESENT: full ROM. ABSENT: calf tenderness, clubbing, pedal edema Musculoskeletal exam: PRESENT: full ROM Neurological exam: PRESENT: alert, awake, oriented to person, oriented to place , oriented to time, oriented to situation, CN II-XII grossly intact. ABSENT: motor sensory deficit Psychiatric exam: PRESENT: appropriate affect, normal mood. ABSENT: homicidal ideation, suicidal ideation Skin exam: PRESENT: dry, intact, warm. ABSENT: cyanosis, rash Results Laboratory Results: 08/16/17 06:23 08/16/17 06:23 08/16/17 08/16/17 06:23 06:23 WBC 6.1 RBC 2.98 L Hgb 10.0 L Hct 29.3 L MCV 98 H MCH 33.5 H MCHC 34.1 RDW 16.8 H Plt Count 80 L Seg Neutrophils % 68.2 Lymphocytes % 19.8 Monocytes % 9.1 Eosinophils % 1.6 Basophils % 1.3 Absolute Neutrophils 4.1 Absolute Lymphocytes 1.2 Absolute Monocytes 0.5 Absolute Eosinophils 0.1 Absolute Basophils 0.1 Sodium 136.3 L Potassium 3.6 Chloride 102 Carbon Dioxide 23 Anion Gap 11 BUN 5 L Creatinine 0.55 Est GFR ( Amer) > 60 Est GFR (Non-Af Amer) > 60 Glucose 80 Calcium 8.9 08/12/17 08/12/17 08/12/17 10:20 10:20 16:02 Creatine Kinase 395 H 403 H CK-MB (CK-2) 1.71 Troponin I < 0.012 08/12/17 08/12/17 16:02 22:20 Creatine Kinase CK-MB (CK-2) 1.32 0.86 Troponin I < 0.012 < 0.012 Impressions: Chest X-Ray 08/11/17 22:56 IMPRESSION: No acute cardiopulmonary findings. Abdomen/Pelvis CT 08/12/17 08:54 IMPRESSION: There is patent megaly with heterogeneous density in the liver consistent with the patient's clinical history of hepatic cirrhosis. No focal hepatic abnormalities are identified. There is borderline splenomegaly without focal abnormalities being identified. Other findings as noted above Assessment & Plan - Diagnosis (1) Alcohol withdrawal Is this a current diagnosis for this admission?: Yes Plan: Patient currently is not undergoing withdrawal. Pt has not required Ativan. (2) Alcoholic liver disease Is this a current diagnosis for this admission?: Yes Plan: Consult GI. (3) Hepatitis C Is this a current diagnosis for this admission?: Yes Plan: Supportive of Care (4) Hyperammonemia Is this a current diagnosis for this admission?: Yes Plan: lactulose. Will check ammonia level. (5) Hypokalemia Is this a current diagnosis for this admission?: Yes Plan: resolved. (6) Hypomagnesemia Is this a current diagnosis for this admission?: Yes Plan: Will check magnesium level. (7) Hyperlipidemia Qualifiers: Hyperlipidemia type: unspecified Qualified Code(s): E78.5 - Hyperlipidemia , unspecified Is this a current diagnosis for this admission?: Yes Plan: Pt would benefit from Statin. (8) Anemia Is this a current diagnosis for this admission?: Yes Plan: Will ask GI to evaluate pt. Will check anemia workup. - Time Time Spent with patient: 15-24 minutes
[2017-08-16] MEDS ORDERED: NORMAL SALINE 1000 ML 1,000 ML IV ONE (20:30)
[2017-08-16] MEDS: ONDANSETRON HCL INJ/PF 4 MG/2 ML SDV IV PRN (20:44)
[2017-08-17] MEDS: LORAZEPAM INJ 2 MG/1 ML VIAL IV SCH ×5 (02:05→23:48)
[2017-08-17] MEDS: NYSTATIN 500000 UNIT/5 ML UDCUP PO SCH ×4 (02:08→21:59)
[2017-08-17 05:11] LABS: ABSOLUTE EOSINOPHILS # (AUTO) 0.1 10^3/uL (0.0-0.6); ABSOLUTE LYMPHOCYTES (AUTO) 1.4 10^3/uL (0.5-4.7); ABSOLUTE MONOCYTES (AUTO) 0.6 10^3/uL (0.1-1.4); ABSOLUTE RETICS # 0.143 10^6/uL (0.028-0.122); BASOPHILS % (AUTO) 0.7 % (0-2); EOSINOPHILS % (AUTO) 1.3 % (0-6); HEMATOCRIT 32.2 % (37.9-51.0); HEMOGLOBIN 10.9 g/dL (13.5-17.0); LYMPHOCYTES % (AUTO) 23.3 % (13-45); MEAN CORPUSCULAR HEMOGLOBIN 33.7 pg (27.0-33.4); MEAN CORPUSCULAR HGB CONC 33.8 g/dL (32.0-36.0); MEAN CORPUSCULAR VOLUME 100 fl (80-97); MONOCYTES % (AUTO) 9.9 % (3-13); PLATELET COUNT 129 10^3/uL (150-450); RED BLOOD COUNT 3.23 10^6/uL (4.35-5.55); RED CELL DISTRIBUTION WIDTH 17.6 % (11.5-14.0); RETICULOCYTE COUNT (AUTO) 4.43 % (0.66-2.85); SEGMENTED NEUTROPHILS % (AUTO) 64.8 % (42-78); TOTAL CELLS COUNTED % (AUTO) 100 %; WHITE BLOOD COUNT 6.1 10^3/uL (4.0-10.5)
[2017-08-17 05:20] LABS: INTERNATIONAL RATION (INR) 1.09; PROTHROMBIN TIME 14.9 SEC (11.4-15.4)
[2017-08-17 05:26] LABS: ALANINE AMINOTRANSFERASE 29 U/L (21-72); ALBUMIN 3.5 g/dL (3.5-5.0); ALKALINE PHOSPHATASE 241 U/L (38-126); ANION GAP 14 (5-19); ASPARTATE AMINO TRANSFERASE 165 U/L (17-59); BILIRUBIN,DIRECT 8.8 mg/dL (0.0-0.4); BILIRUBIN,TOTAL 9.9 mg/dL (0.2-1.3); BLOOD UREA NITROGEN 4 mg/dL (7-20); CALCIUM 8.8 mg/dL (8.4-10.2); CARBON DIOXIDE 21 mmol/L (22-30); CHLORIDE 103 mmol/L (98-107); GLUCOSE 77 mg/dL (75-110); IRON(TIBC) 41.6 ug/dL (49-181); POTASSIUM 3.9 mmol/L (3.6-5.0); SODIUM 137.8 mmol/L (137-145); TOTAL PROTEIN 7.2 g/dL (6.3-8.2)
[2017-08-17] MEDS: OXYCODONE-ACETAMINOPHEN 5-325 MG TABLET PO PRN ×3 (07:57→21:59)
[2017-08-17] MEDS: CHOLESTYRAMINE/ASPARTAME 4 GM PACKET PO SCH ×4 (09:39→22:00)
--- NOTE | 2017-08-17 09:48 | PDOC CONSULTATION ---
Consultation Consult Date: 08/17/17 Attending physician:: SHAREE RAIN Consult reason:: cirrhosis. alcoholic pancreatitis. hep C History of Present Illness Admission Date/PCP: 08/12/17 07:27 History of Present Illness: I have been asked to see this patient by the Hospitalist service patient has seen Dr Shaver in the past patient admitted for alcohol withdrawal, CT evidence of cirrhosis coagulation profile is normal ? possible borderline splenomegaly by CT scan patient has Hep C as long as he continues to drink alcohol , he is not a candidate for treatment will need 6 months of documented sobriety prior to consideration patient also has a history of chronic pancreatitis he does have abdominal pain whenever he eats also has loose stools no active bleeding he is anemic but no GI bleeding is noted patient may need pancreatic enzymes prior to each meal start patient on a PPI, and high dose Zenpep as a trial does not appear to need EGD for now Past Medical History Cardiac Medical History: Reports: Hyperlipidema, Hypertension Pulmonary Medical History: Reports: Bronchitis EENT Medical History: Reports: None Neurological Medical History: Denies: Seizures Endocrine Medical History: Reports: None Renal/ Medical History: Reports: None Malignancy Medical History: Reports: None GI Medical History: Reports: Cirrhosis, Hepatitis - Hepatitis-C Musculoskeltal Medical History: Reports: Arthritis, Gout Skin Medical History: Reports: None Psychiatric Medical History: Reports: Alcohol Dependency, Bipolar Disorder, Post Traumatic Stress Disorder, Substance Abuse, Tobacco Dependency Denies: Depression - anxiety Traumatic Medical History: Reports: None Hematology: Reports: None Infectious Medical History: Reports: Hepatitis C Past Surgical History Past Surgical History: Reports: Orthopedic Surgery - R hand Social History Smoking Status: Current Every Day Smoker Frequency of Alcohol Use: Heavy Hx Recreational Drug Use: Yes Drugs: Marijuana, Other Hx Prescription Drug Abuse: Yes - Advance Directive Resuscitation Status: Full Code Family History Family History: CAD, CVA, Hyperlipidemia, Hypertension, Malignancy, Thyroid Disfunction Parental Family History Reviewed: Yes Children Family History Reviewed: Unknown Sibling(s) Family History Reviewed.: Unknown Medication/Allergy Home Medications: No Home Medications 08/12/17 Allergies/Adverse Reactions: carisoprodol [From Soma] Allergy (Verified 06/26/17 16:38) Sulfa (Sulfonamide Antibiotics) Allergy (Verified 06/26/17 16:38) Review of Systems Constitutional: ABSENT: fever(s), headache(s), night sweats, weakness Eyes: ABSENT: visual disturbances Ears: ABSENT: hearing changes Nose, Mouth, and Throat: ABSENT: sore throat Cardiovascular: ABSENT: chest pain, orthropnea Respiratory: ABSENT: dyspnea, hemoptysis Gastrointestinal: PRESENT: heartburn. ABSENT: dysphagia, hematochezia, melena Genitourinary: ABSENT: dysuria, hematuria Musculoskeletal: ABSENT: deformity, joint swelling Integumentary: ABSENT: pruritus Neurological: ABSENT: syncope, tingling, tremor(s), vertigo Endocrine: ABSENT: polydipsia, polyphagia, polyuria Physical Exam Vital Signs: Temp Pulse Resp BP Pulse Ox 98.9 F 109 H 16 127/76 H 97 08/17/17 08:00 08/17/17 08:00 08/17/17 08:00 08/17/17 08:00 08/17/17 08:00 Intake & Output 08/16/17 08/17/17 08/18/17 06:59 06:59 06:59 Intake Total 1480 2467 Balance 1480 2467 Weight 87.2 kg 87.3 kg General appearance: PRESENT: no acute distress, well-nourished Head exam: PRESENT: atraumatic, normocephalic Eye exam: PRESENT: EOMI, PERRLA. ABSENT: nystagmus, periorbital swelling, scleral icterus Mouth exam: PRESENT: moist, neck supple Throat exam: ABSENT: tonsillar exudate, tonsillogmegaly Neck exam: ABSENT: meningismus, tenderness, thyromegaly Respiratory exam: PRESENT: symmetrical, unlabored. ABSENT: tachypnea, wheezes Cardiovascular exam: PRESENT: RRR, +S1, +S2 GI/Abdominal exam: PRESENT: soft. ABSENT: rebound, rigid, tenderness Extremities exam: ABSENT: joint swelling Neurological exam: PRESENT: awake, oriented to situation, CN II-XII grossly intact Skin exam: PRESENT: normal color. ABSENT: mottled, pallor, petechiae, urticaria , vesicles Results Laboratory Results: 08/17/17 04:58 08/17/17 04:58 08/17/17 08/17/17 04:58 04:58 WBC 6.1 RBC 3.23 L Hgb 10.9 L Hct 32.2 L MCV 100 H MCH 33.7 H MCHC 33.8 RDW 17.6 H Plt Count 129 L Seg Neutrophils % 64.8 Lymphocytes % 23.3 Monocytes % 9.9 Eosinophils % 1.3 Basophils % 0.7 Absolute Neutrophils 4.0 Absolute Lymphocytes 1.4 Absolute Monocytes 0.6 Absolute Eosinophils 0.1 Absolute Basophils 0.0 Retic Count (auto) 4.43 H Absolute Retic 0.143 H Sodium 137.8 Potassium 3.9 Chloride 103 Carbon Dioxide 21 L Anion Gap 14 BUN 4 L Creatinine 0.48 L Est GFR ( Amer) > 60 Est GFR (Non-Af Amer) > 60 Glucose 77 Calcium 8.8 Magnesium 1.4 L Iron 41.6 L TIBC 244 L % Saturation 17 Ferritin 155.00 Total Bilirubin 9.9 H AST 165 H ALT 29 Alkaline Phosphatase 241 H Total Protein 7.2 Albumin 3.5 Vitamin B12 387.0 Folate 11.30 08/12/17 08/12/17 08/12/17 10:20 10:20 16:02 Creatine Kinase 395 H 403 H CK-MB (CK-2) 1.71 Troponin I < 0.012 08/12/17 08/12/17 16:02 22:20 Creatine Kinase CK-MB (CK-2) 1.32 0.86 Troponin I < 0.012 < 0.012 Impressions: Chest X-Ray 08/11/17 22:56 IMPRESSION: No acute cardiopulmonary findings. Abdomen/Pelvis CT 08/12/17 08:54 IMPRESSION: There is patent megaly with heterogeneous density in the liver consistent with the patient's clinical history of hepatic cirrhosis. No focal hepatic abnormalities are identified. There is borderline splenomegaly without focal abnormalities being identified. Other findings as noted above Assessment & Plan - Diagnosis (1) Alcohol abuse Is this a current diagnosis for this admission?: Yes Plan: continue to use alcohol, needs counselling not a candidate for treatment for hepC at this point abnormal LFT's likely due to combination of alcoholic hepatitis , possible fatty liver and ongoing cirrhosis (2) Alcohol withdrawal Is this a current diagnosis for this admission?: Yes Plan: has not required ativan of late, (3) Anemia Is this a current diagnosis for this admission?: Yes Plan: multifactorial and due to nutritional issues with ongoing alcohol use check B12, folate no current active bleeding check H/H with coagulation being normal, that is encouraging I would not chavez any intervention for now start patient on PPI (4) Hepatitis C Is this a current diagnosis for this admission?: Yes Plan: not a candidate for for treatment at this point due to history of alcohol and concurrent polysubstance abuse (5) Abdominal pain Qualifiers: Abdominal location: generalized Qualified Code(s): R10.84 - Generalized abdominal pain Is this a current diagnosis for this admission?: Yes Plan: could be due to chronic pancreatitis try some Zenpep to see if that would help high dose with each meal (6) Chronic pancreatitis Qualifiers: Pancreatitis type: alcohol induced Qualified Code(s): K86.0 - Alcohol- induced chronic pancreatitis Plan: trial of pancreatic enzymes to see if that would be helpful. follow up as outpatient - Time Time Spent: 50 to 70 Minutes
[2017-08-17] MEDS: LACTULOSE SYRUP 20 GM/30 ML UDCUP PO SCH ×2 (09:53→17:25)
[2017-08-17] MEDS: CLONIDINE HCL 0.1 MG TABLET PO SCH (09:55)
[2017-08-17] MEDS: FOLIC ACID 1 MG TABLET PO SCH (09:55)
[2017-08-17] MEDS: THIAMINE HCL 100 MG TABLET PO SCH (09:55)
[2017-08-17] MEDS: LORAZEPAM INJ 2 MG/1 ML VIAL IV PRN ×3 (09:55→19:57)
[2017-08-17] MEDS: MAGNESIUM OXIDE 400 MG TABLET PO SCH ×2 (09:55→17:26)
[2017-08-17] MEDS: NICOTINE 21 MG/24 HR PATCH.TD24 TD SCH (09:55)
[2017-08-17] MEDS: ONDANSETRON HCL INJ/PF 4 MG/2 ML SDV IV PRN (12:48)
[2017-08-17] MEDS: MULTIVITAMIN TABLET PO SCH (12:48)
--- NOTE | 2017-08-17 17:42 | PDOC PROGRESS REPORT ---
Subjective Progress Note for:: 08/17/17 Subjective:: No new issues. Reason For Visit: ABDOMINAL PAIN,ETOH WITHDRAWAL Physical Exam Vital Signs: Temp Pulse Resp BP Pulse Ox 98.3 F 117 H 16 103/56 L 94 08/17/17 16:13 08/17/17 16:15 08/17/17 16:13 08/17/17 16:13 08/17/17 16:13 Intake & Output 08/16/17 08/17/17 08/18/17 06:59 06:59 06:59 Intake Total 1480 2467 Balance 1480 2467 Weight 87.2 kg 87.3 kg General appearance: PRESENT: no acute distress, well-developed, well-nourished Head exam: PRESENT: atraumatic, normocephalic Eye exam: PRESENT: conjunctiva pink, EOMI. ABSENT: scleral icterus Ear exam: PRESENT: normal external ear exam Mouth exam: PRESENT: moist, tongue midline Neck exam: ABSENT: carotid bruit, JVD, lymphadenopathy, thyromegaly Respiratory exam: PRESENT: clear to auscultation jason. ABSENT: rales, rhonchi, wheezes Cardiovascular exam: PRESENT: RRR. ABSENT: diastolic murmur, rubs, systolic murmur Pulses: PRESENT: normal dorsalis pedis pul Vascular exam: PRESENT: normal capillary refill GI/Abdominal exam: PRESENT: normal bowel sounds, tenderness Rectal exam: PRESENT: deferred Extremities exam: PRESENT: full ROM. ABSENT: calf tenderness, clubbing, pedal edema Musculoskeletal exam: PRESENT: full ROM Neurological exam: PRESENT: alert, awake, oriented to person, oriented to place , oriented to time, oriented to situation, CN II-XII grossly intact. ABSENT: motor sensory deficit Psychiatric exam: PRESENT: appropriate affect, normal mood. ABSENT: homicidal ideation, suicidal ideation Skin exam: PRESENT: dry, intact, warm. ABSENT: cyanosis, rash Results Laboratory Results: 08/17/17 04:58 08/17/17 04:58 08/17/17 08/17/17 04:58 04:58 WBC 6.1 RBC 3.23 L Hgb 10.9 L Hct 32.2 L MCV 100 H MCH 33.7 H MCHC 33.8 RDW 17.6 H Plt Count 129 L Seg Neutrophils % 64.8 Lymphocytes % 23.3 Monocytes % 9.9 Eosinophils % 1.3 Basophils % 0.7 Absolute Neutrophils 4.0 Absolute Lymphocytes 1.4 Absolute Monocytes 0.6 Absolute Eosinophils 0.1 Absolute Basophils 0.0 Retic Count (auto) 4.43 H Absolute Retic 0.143 H Sodium 137.8 Potassium 3.9 Chloride 103 Carbon Dioxide 21 L Anion Gap 14 BUN 4 L Creatinine 0.48 L Est GFR ( Amer) > 60 Est GFR (Non-Af Amer) > 60 Glucose 77 Calcium 8.8 Magnesium 1.4 L Iron 41.6 L TIBC 244 L % Saturation 17 Ferritin 155.00 Total Bilirubin 9.9 H AST 165 H ALT 29 Alkaline Phosphatase 241 H Total Protein 7.2 Albumin 3.5 Vitamin B12 387.0 Folate 11.30 08/12/17 08/12/17 08/12/17 10:20 10:20 16:02 Creatine Kinase 395 H 403 H CK-MB (CK-2) 1.71 Troponin I < 0.012 08/12/17 08/12/17 16:02 22:20 Creatine Kinase CK-MB (CK-2) 1.32 0.86 Troponin I < 0.012 < 0.012 Impressions: Chest X-Ray 08/11/17 22:56 IMPRESSION: No acute cardiopulmonary findings. Abdomen/Pelvis CT 08/12/17 08:54 IMPRESSION: There is patent megaly with heterogeneous density in the liver consistent with the patient's clinical history of hepatic cirrhosis. No focal hepatic abnormalities are identified. There is borderline splenomegaly without focal abnormalities being identified. Other findings as noted above Assessment & Plan - Diagnosis (1) Alcohol withdrawal Is this a current diagnosis for this admission?: Yes Plan: Patient currently is not undergoing withdrawal. Pt has not required Ativan. (2) Alcoholic liver disease Is this a current diagnosis for this admission?: Yes Plan: GI has stated that patient does not require EGD at this time. (3) Hepatitis C Is this a current diagnosis for this admission?: Yes Plan: Supportive of Care (4) Hyperammonemia Is this a current diagnosis for this admission?: Yes Plan: lactulose. Will check ammonia level. (5) Hypokalemia Is this a current diagnosis for this admission?: Yes Plan: resolved. (6) Hypomagnesemia Is this a current diagnosis for this admission?: Yes Plan: Will give Magnesium replacement. (7) Hyperlipidemia Qualifiers: Hyperlipidemia type: unspecified Qualified Code(s): E78.5 - Hyperlipidemia , unspecified Is this a current diagnosis for this admission?: Yes Plan: Pt would benefit from Statin. (8) Anemia Is this a current diagnosis for this admission?: Yes Plan: Supportive care for now. GI recommends that patient does not need to have EGD at this time. (9) Pancreatic insufficiency Is this a current diagnosis for this admission?: Yes Plan: We will place patient on pancreatic enzyme replacement - Time Time Spent with patient: 15-24 minutes - Plan for discharge home tomorrow.
[2017-08-17] MEDS ORDERED: RINGERS SOLUTION,LACTATED 1,000 ML IV PRN (17:43)
[2017-08-17] MEDS ORDERED: LANSOPRAZOLE 30 MG TAB.RAP.DR PO ONE (19:00)
[2017-08-17] MEDS: MAGNESIUM SULFATE/D5W 1 GM/100 ML RTUPB IV SCH ×3 (19:51→23:48)
[2017-08-17] MEDS ORDERED: LIPASE/PROTEASE/AMYLASE 1 CAP CAPSULE.DR PO ONE (20:00)
[2017-08-18] MEDS: NYSTATIN 500000 UNIT/5 ML UDCUP PO SCH ×3 (04:14→14:18)
[2017-08-18] MEDS: OXYCODONE-ACETAMINOPHEN 5-325 MG TABLET PO PRN (04:14)
[2017-08-18] MEDS ORDERED: LANSOPRAZOLE 30 MG TAB.RAP.DR PO SCH (06:00)
[2017-08-18 06:16] LABS: HEMATOCRIT 30.3 % (37.9-51.0); HEMOGLOBIN 10.3 g/dL (13.5-17.0); MEAN CORPUSCULAR HEMOGLOBIN 33.8 pg (27.0-33.4); MEAN CORPUSCULAR VOLUME 99 fl (80-97); PLATELET COUNT 153 10^3/uL (150-450); RED BLOOD COUNT 3.05 10^6/uL (4.35-5.55); RED CELL DISTRIBUTION WIDTH 17.4 % (11.5-14.0); WHITE BLOOD COUNT 4.9 10^3/uL (4.0-10.5)
[2017-08-18 06:26] LABS: ALANINE AMINOTRANSFERASE 34 U/L (21-72); ALBUMIN 3.4 g/dL (3.5-5.0); ALKALINE PHOSPHATASE 233 U/L (38-126); ANION GAP 12 (5-19); ASPARTATE AMINO TRANSFERASE 206 U/L (17-59); BILIRUBIN,DIRECT 9.1 mg/dL (0.0-0.4); BILIRUBIN,TOTAL 10.2 mg/dL (0.2-1.3); BLOOD UREA NITROGEN 4 mg/dL (7-20); CALCIUM 8.9 mg/dL (8.4-10.2); CARBON DIOXIDE 20 mmol/L (22-30); CHLORIDE 108 mmol/L (98-107); GLUCOSE 89 mg/dL (75-110); POTASSIUM 3.6 mmol/L (3.6-5.0); SODIUM 139.6 mmol/L (137-145); TOTAL PROTEIN 7.5 g/dL (6.3-8.2)
[2017-08-18] MEDS: LORAZEPAM INJ 2 MG/1 ML VIAL IV SCH ×2 (06:44→11:49)
[2017-08-18 06:47] LABS: ABSOLUTE LYMPHOCYTES# (MANUAL) 1.4 10^3/uL (0.5-4.7); ABSOLUTE MONOCYTES # (MANUAL) 0.3 10^3/uL (0.1-1.4); ABSOLUTE NEUTROPHILS# (MANUAL) 3.1 10^3/uL (1.7-8.2); BASOPHILS % (MANUAL) 0 % (0-2); EOSINOPHILS % (MANUAL) 0 % (0-6); LYMPHOCYTES % (MANUAL) 29 % (13-45); MONOCYTES % (MANUAL) 7 % (3-13); SEGMENTED NEUTROPHILS % (MAN) 64 % (42-78); TOTAL CELLS COUNTED 100
[2017-08-18 06:49] LABS: TOXIC GRANULATION SLIGHT
[2017-08-18 06:50] LABS: ANISOCYTOSIS 1+; PLATELET COMMENT ADEQUATE; PLATELET LARGE PRESENT; SCHISTOCYTES SLIGHT
[2017-08-18] MEDS: CHOLESTYRAMINE/ASPARTAME 4 GM PACKET PO SCH ×2 (08:06→11:40)
[2017-08-18] MEDS: LORAZEPAM INJ 2 MG/1 ML VIAL IV PRN ×2 (08:25→14:18)
[2017-08-18] MEDS: CLONIDINE HCL 0.1 MG TABLET PO SCH (11:39)
[2017-08-18] MEDS: LIPASE/PROTEASE/AMYLASE 1 CAP CAPSULE.DR PO SCH ×2 (11:39→14:18)
[2017-08-18] MEDS: MAGNESIUM OXIDE 400 MG TABLET PO SCH (11:39)
[2017-08-18] MEDS: THIAMINE HCL 100 MG TABLET PO SCH (11:39)
[2017-08-18] MEDS: FOLIC ACID 1 MG TABLET PO SCH (11:39)
[2017-08-18] MEDS: NICOTINE 21 MG/24 HR PATCH.TD24 TD SCH (11:40)
[2017-08-18] MEDS: LACTULOSE SYRUP 20 GM/30 ML UDCUP PO SCH (11:40)
[2017-08-18] MEDS: MULTIVITAMIN TABLET PO SCH (11:49)
[2017-08-18 13:15] VITALS: BP 111/69
--- NOTE | 2017-08-18 14:00 | PDOC DISCHARGE SUMMARY ---
General - Admit/Disc Date/PCP Admission Date/Primary Care Provider: 08/12/17 07:27 Discharge Date: 08/18/17 - Discharge Diagnosis (1) Alcohol withdrawal Is this a current diagnosis for this admission?: Yes Summary: Resolved. Patient being sent home on multivitamins, thiamine and folate (2) Alcoholic liver disease Is this a current diagnosis for this admission?: Yes Summary: Patient to discontinue alcohol dependence (3) Hepatitis C Is this a current diagnosis for this admission?: Yes Summary: Patient to discontinue alcohol abuse and follow-up with GI. (4) Hyperammonemia Is this a current diagnosis for this admission?: Yes Summary: Patient to continue on lactulose (5) Hypokalemia Is this a current diagnosis for this admission?: Yes Summary: Resolved. (6) Hypomagnesemia Is this a current diagnosis for this admission?: Yes Summary: Replaced. (7) Hyperlipidemia Is this a current diagnosis for this admission?: Yes Summary: Due to patient's EtOH abuse concerned about place and patient on statin given the fact that patient has significant liver disease and does not follow-up with primary for lab checks. (8) Anemia Is this a current diagnosis for this admission?: Yes Summary: Patient will need to follow-up with GI as outpatient. (9) Pancreatic insufficiency Is this a current diagnosis for this admission?: Yes Summary: Continue replacement - Additional Information Resuscitation Status: Full Code Discharge Diet: Regular Discharge Activity: Activity As Tolerated Prescriptions: Cholestyramine/Aspartame [Questran Light 4 gm Packet] 4 gm PO MEALSHS #90 packet Folic Acid [Folvite 1 mg Tablet] 1 mg PO DAILY #30 tablet Lactulose [Cephulac Syrup 20 gm/30 ml Udcup] 20 gm PO BID #60 udc Multivitamin [Tab-A-Lonny (Multiple Vitamin) Tablet] 1 tab PO DAILY@1200 #30 tablet Nystatin [Mycostatin 500,000 Unit/5 ml Susp Udcup] 100,000 unit PO Q6A #1 bottle Omeprazole 20 mg PO BID #60 tablet. Thiamine HCl [Thiamine 100 mg Tablet] 100 mg PO DAILY #30 tablet Home Medications: Cholestyramine/Aspartame [Questran Light 4 gm Packet] 4 gm PO MEALSHS #90 packet 08/18/17 Folic Acid [Folvite 1 mg Tablet] 1 mg PO DAILY #30 tablet 08/18/17 Lactulose [Cephulac Syrup 20 gm/30 ml Udcup] 20 gm PO BID #60 udc 08/18/17 Multivitamin [Tab-A-Lonny (Multiple Vitamin) Tablet] 1 tab PO DAILY@1200 #30 tablet 08/18/17 Nystatin [Mycostatin 500,000 Unit/5 ml Susp Udcup] 100,000 unit PO Q6A #1 bottle 08/18/17 Omeprazole 20 mg PO BID #60 tablet. 08/18/17 Thiamine HCl [Thiamine 100 mg Tablet] 100 mg PO DAILY #30 tablet 08/18/17 History of Present Illness Patient complains of: Abdominal pain History of Present Illness: RAMBO MARTINEZ is a 32 year old male since to the hospital with complaint of abdominal pain. Patient was found to be withdrawing from alcohol abuse. Patient was placed on Ativan protocol and given multivitamin replacement. Patient was seen by GI for potential scope however GI recommended that patient does not need a scope at this time and to follow-up as outpatient. Patient also has history of pancreatitis and patient was placed back on supplement. Hospital Course Hospital Course: RAMBO MARTINEZ is a 32 year old male since to the hospital with complaint of abdominal pain. Patient was found to be withdrawing from alcohol abuse. Patient was placed on Ativan protocol and given multivitamin replacement. Patient was seen by GI for potential scope however GI recommended that patient does not need a scope at this time and to follow-up as outpatient. Patient also has history of pancreatitis and patient was placed back on supplement. Physical Exam Vital Signs: Temp Pulse Resp BP Pulse Ox 99.1 F 100 16 111/69 93 08/18/17 12:32 08/18/17 12:32 08/18/17 12:32 08/18/17 12:32 08/18/17 12:32 Intake & Output 08/17/17 08/18/17 08/19/17 06:59 06:59 06:59 Intake Total 2467 1523 Balance 2467 1523 Weight 87.3 kg 87.3 kg General appearance: PRESENT: no acute distress, well-developed, well-nourished Head exam: PRESENT: atraumatic, normocephalic Eye exam: PRESENT: conjunctiva pink, EOMI. ABSENT: scleral icterus Ear exam: PRESENT: normal external ear exam Mouth exam: PRESENT: moist, tongue midline Neck exam: ABSENT: carotid bruit, JVD, lymphadenopathy, thyromegaly Respiratory exam: PRESENT: clear to auscultation jason. ABSENT: rales, rhonchi, wheezes Cardiovascular exam: PRESENT: RRR. ABSENT: diastolic murmur, rubs, systolic murmur Pulses: PRESENT: normal dorsalis pedis pul Vascular exam: PRESENT: normal capillary refill GI/Abdominal exam: PRESENT: normal bowel sounds, tenderness Rectal exam: PRESENT: deferred Extremities exam: PRESENT: full ROM. ABSENT: calf tenderness, clubbing, pedal edema Musculoskeletal exam: PRESENT: full ROM Neurological exam: PRESENT: alert, awake, oriented to person, oriented to place , oriented to time, oriented to situation, CN II-XII grossly intact. ABSENT: motor sensory deficit Psychiatric exam: PRESENT: appropriate affect, normal mood. ABSENT: homicidal ideation, suicidal ideation Skin exam: PRESENT: dry, intact, warm. ABSENT: cyanosis, rash Results Laboratory Results: 08/18/17 06:01 08/18/17 06:01 08/17/17 08/18/17 08/18/17 04:58 06:01 06:01 WBC 4.9 RBC 3.05 L Hgb 10.3 L Hct 30.3 L MCV 99 H MCH 33.8 H MCHC 34.0 RDW 17.4 H Plt Count 153 Seg Neutrophils % Not Reportable Lymphocytes % Not Reportable Monocytes % Not Reportable Eosinophils % Not Reportable Basophils % Not Reportable Absolute Neutrophils Not Reportable Absolute Lymphocytes Not Reportable Absolute Monocytes Not Reportable Absolute Eosinophils Not Reportable Absolute Basophils Not Reportable Sodium 139.6 Potassium 3.6 Chloride 108 H Carbon Dioxide 20 L Anion Gap 12 BUN 4 L Creatinine 0.52 Est GFR ( Amer) > 60 Est GFR (Non-Af Amer) > 60 Glucose 89 Calcium 8.9 Magnesium 2.0 Transferrin 173 L Total Bilirubin 10.2 H AST 206 H ALT 34 Alkaline Phosphatase 233 H Ammonia Total Protein 7.5 Albumin 3.4 L 08/18/17 06:01 WBC RBC Hgb Hct MCV MCH MCHC RDW Plt Count Seg Neutrophils % Lymphocytes % Monocytes % Eosinophils % Basophils % Absolute Neutrophils Absolute Lymphocytes Absolute Monocytes Absolute Eosinophils Absolute Basophils Sodium Potassium Chloride Carbon Dioxide Anion Gap BUN Creatinine Est GFR ( Amer) Est GFR (Non-Af Amer) Glucose Calcium Magnesium Transferrin Total Bilirubin AST ALT Alkaline Phosphatase Ammonia 74.8 H Total Protein Albumin 08/12/17 08/12/17 08/12/17 10:20 10:20 16:02 Creatine Kinase 395 H 403 H CK-MB (CK-2) 1.71 Troponin I < 0.012 08/12/17 08/12/17 16:02 22:20 Creatine Kinase CK-MB (CK-2) 1.32 0.86 Troponin I < 0.012 < 0.012 Impressions: Chest X-Ray 08/11/17 22:56 IMPRESSION: No acute cardiopulmonary findings. Abdomen/Pelvis CT 08/12/17 08:54 IMPRESSION: There is patent megaly with heterogeneous density in the liver consistent with the patient's clinical history of hepatic cirrhosis. No focal hepatic abnormalities are identified. There is borderline splenomegaly without focal abnormalities being identified. Other findings as noted above Qualifiers - * PATEINT BEING DISCHARGED WITH ANY OF THE FOLLOWING DIAGNOSIS?: No Plan Time Spent: Greater than 30 Minutes
== END 2017-08-18 14:45 | disposition home or self-care (01) | DRG 433 ==
LOC: ER 21:59 → OBSVTOIN 08-12 07:27 → EH 08-12 07:27 → 4S 08-12 23:42
PROVIDERS: ADMIT Student in an Organized Health Care Education/Training Program; ATTEND Student in an Organized Health Care Education/Training Program
DX: K70.30 Alcoholic cirrhosis of liver without ascites (principal); K86.0 Alcohol-induced chronic pancreatitis; E72.20 Disorder of urea cycle metabolism, unspecified; F10.239 Alcohol dependence with withdrawal, unspecified; F10.229 Alcohol dependence with intoxication, unspecified; F12.90 Cannabis use, unspecified, uncomplicated; E83.42 Hypomagnesemia; E87.6 Hypokalemia; D64.9 Anemia, unspecified; I10 Essential (primary) hypertension; B19.20 Unspecified viral hepatitis C without hepatic coma; F43.10 Post-traumatic stress disorder, unspecified; F19.10 Other psychoactive substance abuse, uncomplicated; F31.9 Bipolar disorder, unspecified; F17.210 Nicotine dependence, cigarettes, uncomplicated; Y90.8 Blood alcohol level of 240 mg/100 ml or more
CPT/HCPCS: 36415; 71046; 74177; 80048; 80053; 80061; 80076; 80307; 81001; 82140; 82272; 82550; 82553; 82607; 82728; 82746; 83540; 83550; 83690; 83735; 84100; 84439; 84443; 84466; 84484; 85025; 85027; 85045; 85610; 87086; 93005; 93010; 96365; 96366; 96367; 96368; 96372; 96375; 96376; 99285; J1650; J2060; J2405; J2550; J2765; J3360; J3475; J3480; J3490; J7030; S0164

== ENCOUNTER 2017-10-12 13:32 | Inpatient (IN) | payer SELFPAY ==
--- NOTE | 2017-10-12 13:44 | ER Document Report ---
ED General - General Stated Complaint: ABDOMINAL PAIN Time Seen by Provider: 10/12/17 13:42 TRAVEL OUTSIDE OF THE [place] IN LAST 30 DAYS: No - Related Data Allergies/Adverse Reactions: carisoprodol [From Soma] Allergy (Verified 06/26/17 16:38) Sulfa (Sulfonamide Antibiotics) Allergy (Verified 06/26/17 16:38) Past Medical History - Social History Family History: CAD, CVA, Hyperlipidemia, Hypertension, Malignancy, Thyroid Disfunction - Past Medical History Cardiac Medical History: Reports: Hx Hypercholesterolemia, Hx Hypertension Pulmonary Medical History: Reports: Hx Bronchitis Neurological Medical History: Reports: Hx Cerebrovascular Accident - States he has had a TIA. Denies: Hx Seizures Renal/ Medical History: Denies: Hx Peritoneal Dialysis GI Medical History: Reports: Hx Cirrhosis, Hx Gastritis, Hx Hepatitis - Hepatitis-C, Hx Ulcer, Hx Endoscopy Musculoskeltal Medical History: Reports Hx Arthritis, Reports Hx Gout, Reports Hx Musculoskeletal Deformity, Reports Hx Musculoskeletal Trauma Psychiatric Medical History: Reports: Hx Anxiety, Hx Bipolar Disorder, Hx Post Traumatic Stress Disorder Denies: Hx Depression - anxiety Traumatic Medical History: Reports: Hx Fractures - Right hand Infectious Medical History: Reports: Hx Hepatitis - Hepatitis-C Past Surgical History: Reports: Hx Orthopedic Surgery - R hand - Immunizations Immunizations up to date: Yes Hx Diphtheria, Pertussis, Tetanus Vaccination: Yes
[2017-10-12] MEDS ORDERED: NORMAL SALINE 1000 ML 1,000 ML IV ONE ×2 (14:06→16:24)
--- NOTE | 2017-10-12 14:07 | ER Document Report ---
ED GI/ - General Chief Complaint: Abdominal Distention Stated Complaint: ABDOMINAL PAIN Time Seen by Provider: 10/12/17 13:42 Notes: The patient is a 32-year-old male, past medical history chronic alcoholism, hepatitis C, presents with increasing abdominal pain, distention and some shortness of breath. He appears tired and is slowly answering questions. Patient denies nausea, vomiting, diarrhea, fevers, back pain, cough or headache. TRAVEL OUTSIDE OF THE [place] IN LAST 30 DAYS: No - Related Data Allergies/Adverse Reactions: carisoprodol [From Soma] Allergy (Verified 06/26/17 16:38) Sulfa (Sulfonamide Antibiotics) Allergy (Verified 06/26/17 16:38) Past Medical History - General Information source: Patient - Social History Smoking Status: Current Every Day Smoker Chew tobacco use (# tins/day): No Frequency of alcohol use: Heavy - 12 pack/day Drug Abuse: Marijuana Family History: CAD, CVA, Hyperlipidemia, Hypertension, Malignancy, Thyroid Disfunction Patient has suicidal ideation: No Patient has homicidal ideation: No - Past Medical History Cardiac Medical History: Reports: Hx Hypercholesterolemia, Hx Hypertension Pulmonary Medical History: Reports: Hx Bronchitis Neurological Medical History: Reports: Hx Cerebrovascular Accident - States he has had a TIA. Denies: Hx Seizures Renal/ Medical History: Denies: Hx Peritoneal Dialysis GI Medical History: Reports: Hx Cirrhosis, Hx Gastritis, Hx Hepatitis - Hepatitis-C, Hx Ulcer, Hx Endoscopy Musculoskeltal Medical History: Reports Hx Arthritis, Reports Hx Gout, Reports Hx Musculoskeletal Deformity, Reports Hx Musculoskeletal Trauma Psychiatric Medical History: Reports: Hx Anxiety, Hx Bipolar Disorder, Hx Post Traumatic Stress Disorder Denies: Hx Depression - anxiety Traumatic Medical History: Reports: Hx Fractures - Right hand Infectious Medical History: Reports: Hx Hepatitis - Hepatitis-C Past Surgical History: Reports: Hx Orthopedic Surgery - R hand - Immunizations Immunizations up to date: Yes Hx Diphtheria, Pertussis, Tetanus Vaccination: Yes Review of Systems - Review of Systems Notes: REVIEW OF SYSTEMS: CONSTITUTIONAL: -fevers, -chills EENT: -eye pain, -difficulty swallowing, -nasal congestion CARDIOVASCULAR: -chest pain, -syncope. RESPIRATORY: -cough, +SOB GASTROINTESTINAL: +abdominal pain, -nausea, -vomiting, -diarrhea GENITOURINARY: -dysuria, -hematuria MUSCULOSKELETAL: -back pain, -neck pain SKIN: -rash or skin lesions. HEMATOLOGIC: -easy bruising or bleeding. LYMPHATIC: -swollen, enlarged glands. NEUROLOGICAL: -altered mental status or loss of consciousness, -headache, + tremulousness PSYCHIATRIC: -anxiety, -depression. ALL OTHER SYSTEMS REVIEWED AND NEGATIVE. Physical Exam - Vital signs Vitals: Temp Pulse Resp BP Pulse Ox 98.6 F 121 H 18 144/68 H 97 10/12/17 13:39 10/12/17 13:39 10/12/17 13:39 10/12/17 13:39 10/12/17 13:39 - Notes Notes: PHYSICAL EXAMINATION: GENERAL: Appears intoxicated, no acute distress. HEAD: Atraumatic, normocephalic. EYES: Pupils equal round and reactive to light, extraocular movements intact, ENT: blue lips and tongue (after drinking a blue drink), nares patent, oropharynx clear without exudates. Moist mucous membranes. NECK: Normal range of motion, supple without lymphadenopathy LUNGS: Breath sounds clear to auscultation bilaterally and equal. No wheezes rales or rhonchi. Mild tachypnea. HEART: Regular rhythm, tachycardia ABDOMEN: Protuberant abdomen, caput medusa, large amount of ascites, diffuse tenderness. EXTREMITIES: Normal range of motion, no pitting or edema. No cyanosis. NEUROLOGICAL: Moving all 4 extremities, slow to respond to questions, sensation intact. SKIN: Warm, Dry, normal turgor, no rashes or lesions noted. Course - Re-evaluation Re-evalutation: Patient appears clinically intoxicated with diffuse abdominal pain. Blood work is remarkable for a new leukocytosis of 18 and elevated lactate of 15. ETOH level is 396. Initially, Rocephin started due to concern about SBP, but CTA chest, abdomen and pelvis did not show any evidence of ascites or any other signs of infection. He does have thickening of the esophagus, along with stigmata of severe alcoholic liver disease. Broad-spectrum antibiotics started and cultures sent. No clear source of infection at this time and he has no meningeal signs. He also has severe hypokalemia at 2.1 and this was repleted with IV potassium. He is unable to swallow the potassium pills due to dysphasia. Patient requires admission for IV antibiotics, IV fluids and potassium repletion. 10/12/17 17:[address] Evans and will admit patient to [facility] as Inpatient. - Vital Signs Vital signs: Temp Pulse Resp BP Pulse Ox 98.6 F 120 H 18 151/81 H 98 10/12/17 13:39 10/12/17 15:24 10/12/17 15:24 10/12/17 14:01 10/12/17 14:01 - Laboratory Result Diagrams: 10/12/17 12:55 10/12/17 12:55 Laboratory results interpreted by me: 10/12/17 10/12/17 10/12/17 12:55 12:55 12:55 WBC 18.2 H RBC 3.64 L Hgb 12.2 L Hct 35.5 L MCH 33.5 H RDW 15.5 H Absolute Neutrophils 13.8 H Absolute Monocytes 1.5 H PT APTT VBG pCO2 Sodium Potassium Chloride Carbon Dioxide Anion Gap BUN Creatinine Glucose Lactic Acid Total Bilirubin 5.8 H Direct Bilirubin 5.2 H AST 324 H Alkaline Phosphatase 736 H Ammonia Creatine Kinase 573 H CK-MB (CK-2) 6.16 H Total Protein 8.4 H Urine Bilirubin Urine Urobilinogen Serum Alcohol 391 H* 10/12/17 10/12/17 10/12/17 12:55 12:55 14:33 WBC RBC Hgb Hct MCH RDW Absolute Neutrophils Absolute Monocytes PT 24.0 H APTT 55.4 H VBG pCO2 Sodium 134.2 L Potassium 2.1 L* Chloride 78 L Carbon Dioxide 18 L Anion Gap 38 H BUN 2 L Creatinine 0.45 L Glucose 227 H Lactic Acid Total Bilirubin Direct Bilirubin AST Alkaline Phosphatase Ammonia 81.6 H Creatine Kinase CK-MB (CK-2) Total Protein Urine Bilirubin Urine Urobilinogen Serum Alcohol 10/12/17 10/12/17 10/12/17 15:40 15:40 16:25 WBC RBC Hgb Hct MCH RDW Absolute Neutrophils Absolute Monocytes PT APTT VBG pCO2 32.3 L Sodium Potassium Chloride Carbon Dioxide Anion Gap BUN Creatinine Glucose Lactic Acid 15.0 H Total Bilirubin Direct Bilirubin AST Alkaline Phosphatase Ammonia Creatine Kinase CK-MB (CK-2) Total Protein Urine Bilirubin SMALL H Urine Urobilinogen 4.0 H Serum Alcohol - Diagnostic Test Radiology reviewed: Image reviewed, Reports reviewed Radiology results interpreted by me: CTA Chest/A/P: No CT angio evidence of acute pulmonary emboli or thoracic aortic or abdominal aortic dissection or aneurysm. Hepatomegaly with recannulized umbilical vein and splenomegaly from portal hypertension. No CT evidence of portal vein, superior mesenteric vein, or hepatic vein thrombosis. No CT evidence of bowel obstruction. Inflammatory changes around the distal esophagus with distal esophageal varices and inflammation in the surrounding para esophageal fat. - EKG Interpretation by Me EKG shows normal: Sinus rhythm, [place], Intervals, QRS Complexes, ST-T Waves Rate: Tachycardia When compared to previous EKG there are: No significant change Additional EKG results interpreted by me: Prolonged QTc. Critical Care Note - Critical Care Note Total time excluding time spent on procedures (mins): 55 Discharge - Discharge Clinical Impression: Hyperammonemia, Hypokalemia, Sinus tachycardia, Thickening of esophagus, Severe sepsis Alcohol intoxication Qualifiers: Complication of substance-induced condition: with unspecified complication Qualified Code(s): F10.929 - Alcohol use, unspecified with intoxication, unspecified Condition: Stable Disposition: ADMITTED INPATIENT [facility] Admitted: [facility]
[2017-10-12] MEDS ORDERED: DIAZEPAM INJ 10 MG/2 ML DISP.SYRIN IV ONE (14:13)
[2017-10-12] MEDS ORDERED: HYDROMORPHONE HCL INJ/PF 2 MG/ML AMPULE IV ONE ×2 (14:13→17:16)
[2017-10-12 14:16] LABS: ABSOLUTE BASOPHILS # (AUTO) 0.1 10^3/uL (0.0-0.2); ABSOLUTE LYMPHOCYTES (AUTO) 2.8 10^3/uL (0.5-4.7); ABSOLUTE MONOCYTES (AUTO) 1.5 10^3/uL (0.1-1.4); ABSOLUTE NEUT (AUTO) 13.8 10^3/uL (1.7-8.2); BASOPHILS % (AUTO) 0.3 % (0-2); EOSINOPHILS % (AUTO) 0.2 % (0-6); HEMATOCRIT 35.5 % (37.9-51.0); HEMOGLOBIN 12.2 g/dL (13.5-17.0); LYMPHOCYTES % (AUTO) 15.3 % (13-45); MEAN CORPUSCULAR HEMOGLOBIN 33.5 pg (27.0-33.4); MEAN CORPUSCULAR HGB CONC 34.4 g/dL (32.0-36.0); MEAN CORPUSCULAR VOLUME 97 fl (80-97); MONOCYTES % (AUTO) 8.3 % (3-13); PLATELET COUNT 307 10^3/uL (150-450); RED BLOOD COUNT 3.64 10^6/uL (4.35-5.55); RED CELL DISTRIBUTION WIDTH 15.5 % (11.5-14.0); SEGMENTED NEUTROPHILS % (AUTO) 75.9 % (42-78); TOTAL CELLS COUNTED % (AUTO) 100 %; WHITE BLOOD COUNT 18.2 10^3/uL (4.0-10.5)
[2017-10-12] MEDS ORDERED: CEFTRIAXONE INJ 1000 MG VIAL IV ONE (14:18)
[2017-10-12 14:32] LABS: INTERNATIONAL RATION (INR) 2.04
[2017-10-12 14:33] LABS: PARTIAL THROMBOPLASTIN TIME 55.4 SEC (23.5-35.8)
[2017-10-12 14:47] LABS: ALANINE AMINOTRANSFERASE 36 U/L (21-72); ALBUMIN 3.6 g/dL (3.5-5.0); ALKALINE PHOSPHATASE 736 U/L (38-126); ASPARTATE AMINO TRANSFERASE 324 U/L (17-59); BILIRUBIN,DIRECT 5.2 mg/dL (0.0-0.4); BILIRUBIN,TOTAL 5.8 mg/dL (0.2-1.3); CREATINE KINASE 573 U/L (55-170); LIPASE 74.6 U/L (23-300); TOTAL PROTEIN 8.4 g/dL (6.3-8.2)
[2017-10-12 14:48] LABS: BLOOD UREA NITROGEN 2 mg/dL (7-20); CALCIUM 8.9 mg/dL (8.4-10.2); GLUCOSE 227 mg/dL (75-110)
[2017-10-12 14:54] LABS: CARBON DIOXIDE 18 mmol/L (22-30); CHLORIDE 78 mmol/L (98-107); SODIUM 134.2 mmol/L (137-145)
[2017-10-12 14:59] LABS: CREATINE KINASE MB 6.16 ng/mL (<4.55)
[2017-10-12 15:01] LABS: TROPONIN I < 0.012 ng/mL
[2017-10-12 15:03] LABS: ANION GAP 38 (5-19); POTASSIUM 2.1 mmol/L (3.6-5.0)
[2017-10-12] MEDS ORDERED: LACTULOSE SYRUP 20 GM/30 ML UDCUP PO ONE (15:03)
[2017-10-12 15:04] LABS: ALCOHOL 391 mg/dL (NONE DETECTED)
[2017-10-12] MEDS ORDERED: POTASSIUM CHLORIDE 10 MEQ TABLET.SA PO ONE (15:11)
[2017-10-12] MEDS ORDERED: METOCLOPRAMIDE HCL INJ/PF 10 MG/2 ML SDV IV ONE (15:43)
[2017-10-12 16:01] LABS: VENOUS BLOOD HCO3 20.5 mmol/L (20-32); VENOUS BLOOD PCO2 32.3 mmHg (35-63); VENOUS BLOOD PH 7.42 (7.30-7.42)
[2017-10-12] MEDS ORDERED: VANCOMYCIN HCL INJ 1000 MG VIAL IV ONE (16:24)
[2017-10-12] MEDS: POTASSI CL 20 MEQ/50 ML RIDER 20 MEQ/50 ML RTUPB IV SCH ×3 (16:52→22:22)
--- NOTE | 2017-10-12 17:07 | RADIOLOGY REPORT (SQ) ---
EXAM DESCRIPTION: CTA CHEST; CTA ABDOMEN COMPLETED DATE/TIME: 10/12/2017 4:36 pm REASON FOR STUDY: sob with tachycardia; distended abd COMPARISON: CT abdomen pelvis 08/12/2017, 05/27/2017, 10/23/2016 Hepatobiliary scan 05/29/2017 Abdominal ultrasound 09/16/2016, 05/29/2017 CONTRAST TYPE AND DOSE: contrast/concentration: Isovue 370.00 mg/ml; Total Contrast Delivered: 150.0 ml; Total Saline Delivered: 150.0 ml RENAL FUNCTION: Creatinine 0.45 TECHNIQUE: CT angio of the chest performed using helical scanning technique with dynamic intravenous contrast injection. Images reviewed with lung, soft tissue and bone windows. Reconstructed coronal and sagittal MPR images reviewed. Maximum intensity projected images through the thoracic aorta and pulmonary artery. All images stored on PACS. CT angio of the abdomen performed with intravenous and with oral contrastusing helical scanning techn ique with dynamic intravenous contrast injection. Images reviewed with lung, soft tissue and bone wi ndows. Reconstructed coronal and sagittal MPR images reviewed. Delayed images for evaluation of the urinary system also acquired and evaluated. All images stored on PACS. All CT scanners at this facility use dose modulation, iterative reconstruction, and/or weight based d osing when appropriate to reduce radiation dose to as low as reasonably achievable (ALARA). [facility]: Dose Right [facility]: CareDose [facility]: Dose Right [facility]: Teradose 4D [facility]: Smart Technologies RADIATION DOSE: CT Rad equipment meets quality standard of care and radiation dose reduction techniq ues were employed. CTDIvol: 18.3 - 39.7 mGy. DLP: 1983 mGy-cm. . LIMITATIONS: None. FINDINGS: CHEST: LUNGS AND PLEURA: No opacities, nodules, masses. No pneumothorax. No effusions. HILAR AND MEDIASTINAL STRUCTURES: No adenopathy. There is a small hiatal hernia. Mild inflammatory stranding around the distal esophagus on axial images 67-79. No extraluminal air or left pleural eff usion worrisome for distal esophageal perforation HEART AND VASCULAR STRUCTURES: No thoracic aortic aneurysm or dissection. No central pulmonary embol i. No pericardial effusion. HARDWARE: None. THYROID AND OTHER SOFT TISSUES: No masses. No adenopathy. BONES: No significant finding. OTHER: Bilateral gynecomastia. ABDOMEN AND PELVIS: LIVER: Massive hepatomegaly with decreased attenuation from fatty infiltration. Recannulized umbilic al vein. Normal contrast enhancement of the hepatic veins and portal vein and branches. SPLEEN: Splenomegaly, 14 cm in length. There are varices in the left upper quadrant at the splenic h ilum extending into the paraesophageal region PANCREAS: No masses. No significant calcifications. No adjacent inflammation or peripancreatic fluid collections. Pancreatic duct not dilated. GALLBLADDER: No identified stones by CT criteria. No inflammatory changes to suggest cholecystitis. ADRENAL GLANDS: No significant masses or asymmetry. RIGHT KIDNEY AND URETER: No solid masses. No significant calcification. No hydronephrosis or hydroure ter. LEFT KIDNEY AND URETER: No solid masses. No significant calcification. No hydronephrosis or hydrouret er. AORTA AND VESSELS: No aneurysm. No dissection. Renal arteries, SMA, celiac without stenosis. RETROPERITONEUM: No retroperitoneal adenopathy, hemorrhage or masses. BOWEL AND PERITONEAL CAVITY: No oral contrast. No bowel wall pneumatosis. No distended bowel loops worrisome for obstruction. Normal superior mesenteric artery and superior mesenteric vein enhancemen t APPENDIX: Not in the field of view ABDOMINAL WALL: No masses. No hernias. BONES: No significant or acute findings. OTHER: No other significant finding. IMPRESSION: No CT angio evidence of acute pulmonary emboli or thoracic aortic or abdominal aortic di ssection or aneurysm. Hepatomegaly with recannulized umbilical vein and splenomegaly from portal hypertension. No CT evide nce of portal vein, superior mesenteric vein, or hepatic vein thrombosis. No CT evidence of bowel ob struction Inflammatory changes around the distal esophagus with distal esophageal varices and inflammation in t he surrounding para esophageal fat Findings discussed with Dr. Pelayo in the emergency room TECHNICAL DOCUMENTATION: JOB ID: [id number] Quality ID # [id number]: Final reports with documentation of one or more dose reduction techniques (e.g., Au tomated exposure control, adjustment of the mA and/or kV according to patient size, use of iterative reconstruction technique) 2010 [employer]- All Rights Reserved Reading location - IP/workstation name: [id number]
[2017-10-12] MEDS ORDERED: PANTOPRAZOLE SODIUM 40 MG VIAL IV ONE (17:14)
[2017-10-12] MEDS ORDERED: THIAMINE HCL 100 MG, FOLIC ACID 1 MG in NORMAL SALINE 250 ML IV ONE (17:29)
[2017-10-12 17:38] LABS: APPEARANCE,URINE CLEAR; BILIRUBIN,URINE SMALL (NEGATIVE); GLUCOSE, URINE NEGATIVE (NEGATIVE); KETONES,URINE NEGATIVE (NEGATIVE); LEUKOCYTE ESTERASE,URINE NEGATIVE (NEGATIVE); NITRITE,URINE NEGATIVE (NEGATIVE); PROTEIN,URINE NEGATIVE (NEGATIVE); URINE SPECIFIC GRAVITY 1.048
[2017-10-12 17:45] LABS: COLOR,URINE YELLOW
[2017-10-12 17:52] LABS: URINE AMPHETAMINES SCREEN NEGATIVE; URINE BARBITURATES SCREEN NEGATIVE; URINE BENZODIAZEPINES SCREEN NEGATIVE; URINE COCAINE SCREEN NEGATIVE; URINE MARIJUANA (THC) SCREEN UNCONFIRMED POSITIVE; URINE METHADONE SCREEN NEGATIVE; URINE PHENCYCLIDINE SCREEN NEGATIVE
[2017-10-12] MEDS ORDERED: IPRATROPIUM/ALBUTEROL 0.5-2.5 MG/3 ML AMPUL NEB PRN (18:29)
--- NOTE | 2017-10-12 19:05 | PDOC H&P ---
History of Present Illness Admission Date/PCP: 10/12/17 18:51 Patient complains of: Abdominal pain History of Present Illness: RAMBO MARTINEZ is a 32 year old alcoholic male who came into the emergency department complaining of abdominal pain. He is quite intoxicated and was unable to give me any further history. What history I have comes from old charts Past Medical History Cardiac Medical History: Reports: Hyperlipidema, Hypertension Pulmonary Medical History: Reports: Bronchitis Neurological Medical History: Denies: Seizures GI Medical History: Reports: Cirrhosis, Hepatitis - Hepatitis-C Musculoskeltal Medical History: Reports: Arthritis, Gout Psychiatric Medical History: Reports: Bipolar Disorder, Post Traumatic Stress Disorder Denies: Depression - anxiety Past Surgical History Past Surgical History: Reports: Orthopedic Surgery - R hand Social History Smoking Status: Current Every Day Smoker Frequency of Alcohol Use: Heavy Hx Recreational Drug Use: Yes Drugs: Marijuana, Other Hx Prescription Drug Abuse: Yes - Advance Directive Resuscitation Status: Full Code - By default Family History Family History: CAD, CVA, Hyperlipidemia, Hypertension, Malignancy, Thyroid Disfunction Family History: Patient unable to provide any meaningful history Parental Family History Reviewed: No Children Family History Reviewed: No Sibling(s) Family History Reviewed.: No Medication/Allergy Home Medications: Cholestyramine (with Sugar) [Questran Powder] 1 packet PO MEALSHS 10/12/17 Clonidine HCl [Catapres 0.1 mg Tablet] 0.1 mg PO QHS 10/12/17 Folic Acid [Folvite 1 mg Tablet] 1 mg PO DAILY 10/12/17 Thiamine HCl [Thiamine 100 mg Tablet] 100 mg PO DAILY 10/12/17 Allergies/Adverse Reactions: carisoprodol [From Soma] Allergy (Verified 06/26/17 16:38) Sulfa (Sulfonamide Antibiotics) Allergy (Verified 06/26/17 16:38) Review of Systems ROS unobtainable: Due to mental status Physical Exam Vital Signs: Temp Pulse Resp BP Pulse Ox 98.6 F 120 H 18 129/71 H 97 10/12/17 13:39 10/12/17 15:24 10/12/17 18:01 10/12/17 18:00 10/12/17 18:01 General appearance: PRESENT: no acute distress, disheveled Respiratory exam: PRESENT: clear to auscultation jason Cardiovascular exam: PRESENT: RRR GI/Abdominal exam: PRESENT: distended, firm, soft, tenderness Musculoskeletal exam: PRESENT: normal inspection Neurological exam: PRESENT: altered, other - Moves all 4 extremities no focal deficits were immediately obvious Psychiatric exam: PRESENT: other - Clearly intoxicated Skin exam: PRESENT: warm Results Impressions: Chest/Abdomen CTA 10/12/17 13:46 IMPRESSION: No CT angio evidence of acute pulmonary emboli or thoracic aortic or abdominal aortic dissection or aneurysm. Hepatomegaly with recannulized umbilical vein and splenomegaly from portal hypertension. No CT evidence of portal vein, superior mesenteric vein, or hepatic vein thrombosis. No CT evidence of bowel obstruction Inflammatory changes around the distal esophagus with distal esophageal varices and inflammation in the surrounding para esophageal fat Findings discussed with Dr. Pleayo in the emergency room Assessment & Plan - Diagnosis (1) Alcohol intoxication Qualifiers: Complication of substance-induced condition: with unspecified complication Qualified Code(s): F10.929 - Alcohol use, unspecified with intoxication, unspecified Is this a current diagnosis for this admission?: Yes Plan: As needed Ativan. (2) Hypokalemia Is this a current diagnosis for this admission?: Yes Plan: Being replaced by the ER. Recheck in the morning (3) Thickening of esophagus Is this a current diagnosis for this admission?: Yes Plan: He was supposed to follow-up as an outpatient for an EGD. (4) Abdominal pain Qualifiers: Abdominal location: generalized Qualified Code(s): R10.84 - Generalized abdominal pain Is this a current diagnosis for this admission?: Yes Plan: Probably from liver disease and alcoholic gastritis. (5) Alcohol dependence Qualifiers: Substance use status: with intoxication Is this a current diagnosis for this admission?: Yes Plan: He will certainly go through withdrawal. I will provide some as needed Ativan and adjust the dose as needed. (6) Alcoholic liver disease Is this a current diagnosis for this admission?: Yes Plan: Due to alcohol and hepatitis C (7) Hepatitis C Qualifiers: Viral hepatitis chronicity: chronic Is this a current diagnosis for this admission?: Yes
[2017-10-12] MEDS ORDERED: ENOXAPARIN SODIUM INJ 40 MG/0.4 ML DISP.SYRIN SUBCUT ONE (19:30)
[2017-10-12] MEDS: LORAZEPAM INJ 2 MG/1 ML VIAL IV PRN ×3 (19:31→23:47)
[2017-10-12] MEDS ORDERED: FENTANYL 12 MCG/HR PATCH.TD72 TD SCH (22:00)
[2017-10-12] MEDS: FAMOTIDINE INJ/PF 20 MG/2 ML SDV IV SCH (22:29)
--- NOTE | 2017-10-12 23:36 | EKG REPORT ---
SEVERITY:- ABNORMAL ECG - SINUS TACHYCARDIA NONSPECIFIC REPOL ABNORMALITY, DIFFUSE LEADS PROLONGED QT INTERVAL : Confirmed by: Braden Elias 12-Oct-2017 23:35:50
[2017-10-12] MEDS ORDERED: FENTANYL 12 MCG/HR PATCH.TD72 TD ONE (23:45)
[2017-10-13] MEDS: POTASSI CL 20 MEQ/50 ML RIDER 20 MEQ/50 ML RTUPB IV SCH (00:48)
[2017-10-13] MEDS: LORAZEPAM INJ 2 MG/1 ML VIAL IV PRN ×9 (01:40→23:59)
[2017-10-13] MEDS: ONDANSETRON HCL INJ/PF 4 MG/2 ML SDV IV PRN ×2 (05:22→09:58)
[2017-10-13 07:21] LABS: ABSOLUTE BASOPHILS # (AUTO) 0.1 10^3/uL (0.0-0.2); ABSOLUTE LYMPHOCYTES (AUTO) 1.8 10^3/uL (0.5-4.7); ABSOLUTE MONOCYTES (AUTO) 0.9 10^3/uL (0.1-1.4); ABSOLUTE NEUT (AUTO) 10.6 10^3/uL (1.7-8.2); BASOPHILS % (AUTO) 0.9 % (0-2); EOSINOPHILS % (AUTO) 0.1 % (0-6); HEMATOCRIT 32.3 % (37.9-51.0); HEMOGLOBIN 11.2 g/dL (13.5-17.0); LYMPHOCYTES % (AUTO) 13.2 % (13-45); MEAN CORPUSCULAR HEMOGLOBIN 33.8 pg (27.0-33.4); MEAN CORPUSCULAR HGB CONC 34.6 g/dL (32.0-36.0); MEAN CORPUSCULAR VOLUME 98 fl (80-97); MONOCYTES % (AUTO) 6.4 % (3-13); RED CELL DISTRIBUTION WIDTH 15.3 % (11.5-14.0); SEGMENTED NEUTROPHILS % (AUTO) 79.4 % (42-78); TOTAL CELLS COUNTED % (AUTO) 100 %; WHITE BLOOD COUNT 13.4 10^3/uL (4.0-10.5)
[2017-10-13 07:40] LABS: ALANINE AMINOTRANSFERASE 25 U/L (21-72); ALBUMIN 3.2 g/dL (3.5-5.0); ALKALINE PHOSPHATASE 622 U/L (38-126); BILIRUBIN,DIRECT 4.9 mg/dL (0.0-0.4); BILIRUBIN,TOTAL 5.5 mg/dL (0.2-1.3); BLOOD UREA NITROGEN 2 mg/dL (7-20); CALCIUM 8.1 mg/dL (8.4-10.2); CHLORIDE 95 mmol/L (98-107); GLUCOSE 130 mg/dL (75-110); PHOSPHORUS 1.8 mg/dL (2.5-4.5); TOTAL PROTEIN 7.9 g/dL (6.3-8.2)
[2017-10-13 07:47] LABS: ASPARTATE AMINO TRANSFERASE 297 U/L (17-59); CARBON DIOXIDE 12 mmol/L (22-30); SODIUM 137.4 mmol/L (137-145)
[2017-10-13 07:50] LABS: ANION GAP 30 (5-19)
[2017-10-13 07:51] LABS: PLATELET COUNT 201 10^3/uL (150-450); POTASSIUM 2.5 mmol/L (3.6-5.0)
[2017-10-13] MEDS: MAGNESIUM SULFATE/D5W 1 GM/100 ML RTUPB IV SCH ×2 (08:47→09:58)
[2017-10-13] MEDS: FOLIC ACID 1 MG TABLET PO SCH (09:58)
[2017-10-13] MEDS: THIAMINE HCL 100 MG TABLET PO SCH (09:58)
[2017-10-13] MEDS: FAMOTIDINE INJ/PF 20 MG/2 ML SDV IV SCH (09:58)
[2017-10-13] MEDS: POTASSIUM CHLORIDE 10 MEQ TABLET.SA PO SCH ×3 (09:58→17:48)
[2017-10-13] MEDS: NICOTINE 21 MG/24 HR PATCH.TD24 TD SCH (09:58)
[2017-10-13] MEDS: ENOXAPARIN SODIUM INJ 40 MG/0.4 ML DISP.SYRIN SUBCUT SCH (09:59)
[2017-10-13] MEDS ORDERED: NORMAL SALINE 1000 ML 1,000 ML IV PRN (14:12)
[2017-10-13] MEDS: POTASSI CL 20 MEQ/1/2NS 1L 20 MEQ/1,000 ML RTUINJ IV PRN (15:14)
[2017-10-13] MEDS ORDERED: LACTULOSE SYRUP 20 GM/30 ML UDCUP PO ONE (15:29)
--- NOTE | 2017-10-13 15:59 | PROGRESS NOTE E ---
Progress Note NAME: RAMBO MARTINEZ : 1985 AGE: 32Y DATE: 10/13/2017 ROOM: 328 CRITICAL CARE VISIT CHIEF COMPLAINT: Abdominal pain. SUBJECTIVE: The patient is lying in bed. The patient states he is having abdominal pain. He has had pain like this in the past. The patient has had multiple ER contacts for the above. The patient has had no apparent episodes of vomiting nor diarrhea. The patient has spiked a temp, but no diarrhea today. The patient's blood pressure have been slightly elevated and the patient does not voice any other concerns at this time. REVIEW OF SYSTEMS: The rest of review of systems is negative. MEDICATIONS: Have been reviewed. OBJECTIVE: GENERAL: The patient is a 32-year-old male who is awake, other than abdominal pain he has no complaints, does not appear to be in acute distress. VITAL SIGNS: Temperature is 101.1, pulse 130, respirations 16, blood pressure is 161/67, oxygen saturation is 98% on 1.5 liters nasal cannula. SKIN: Pale, dry. No rash. He is not diaphoretic. HEENT: Pupils, equal, round and reactive to light and accommodation. Conjunctivae are pink. There is no evidence of JVP. CARDIOVASCULAR: Heart is tachycardic, regular. No rub. CHEST: Clear, symmetrical, unlabored. ABDOMEN: Mildly distended. No area of focal tenderness. Bowel sounds are present. EXTREMITIES: No clubbing, cyanosis, edema. PSYCHIATRIC: The patient does appear anxious. DIAGNOSTICS: Lab values are as follows - hematology obtain on 10/13/2017; WBCs are 13.4, hemoglobin 11.2, hematocrit is 32.3, platelet count is 201,000. Chemistry obtained on 10/13/2017; sodium is 137, potassium 2.05, chloride is 95, carbon dioxide 12, BUN 2, creatinine is 0.50, glucose 130, calcium is 8.1, phosphorus 1.8, magnesium is 1.2, bilirubin is 5.5, AST 297, ALT is 25, alk-phos 622. Total protein 7.9, albumin 3.2. Microbiology; blood cultures obtained on 10/12/2017 are pending. IMPRESSION AND PLAN: 1. SEPSIS. This is of uncertain etiology. Differentials do include peritonitis. Will cover the patient with Zosyn for now. Will bolus the patient, given that he is tachycardic and repeat lactic acid to capture a trend. White count did improve but the patient did receive antibiotics in the emergency department. Will follow. 2. HYPOKALEMIA. This needs to be repleted. 3. HYPOMAGNESEMIA. Will be repleted. 4. HYPOCALCEMIA. This corrected out to a descend range. Will repeat chemistries this afternoon and may require replacement as well. 5. HYPOPHOSPHATEMIA. Will replete. 6. METABOLIC ACIDOSIS. Most likely is due to the patient's underlying alcohol consumption. Will hydrate and repeat chemistries. 7. ALCOHOL DEPENDENCY CONTINUOUS. Will continue B vitamin supplementation. 8. ALCOHOL WITHDRAWAL. The patient is also tachycardic and somewhat anxious. Will continue CIWA protocol and follow. 9. HEPATIC CIRRHOSIS. The patient does have an elevated ammonia level. Will treat with lactulose. 10. THICKENING OF ESOPHAGUS. The patient most likely has esophagitis due to the patient's alcohol use. Will add PPI therapy. 11. HEPATITIS C, THIS IS CHRONIC. CODE STATUS: The patient is a full code. DISPOSITION: Depending on the patient's symptomatology and diagnostic findings will reevaluate as needed. TIME SPENT: On this critical care visit, including assessment and plan, physical examination, patient education, review of records is 45 minutes. DICTATING PHYSICIAN: BHASKAR SOMMERS NP [id number] PHY#: [id number] ID: [id number] JOB#: [id number] ACCT: [id number] cc: > [facility]
[2017-10-13 16:20] LABS: BLOOD UREA NITROGEN 2 mg/dL (7-20); CALCIUM 8.2 mg/dL (8.4-10.2); CARBON DIOXIDE 16 mmol/L (22-30); CHLORIDE 97 mmol/L (98-107); GLUCOSE 108 mg/dL (75-110)
[2017-10-13 16:25] LABS: SODIUM 136.6 mmol/L (137-145)
[2017-10-13 16:27] LABS: ANION GAP 24 (5-19)
[2017-10-13] MEDS: PIPERACILLIN SODIUM/TAZOBACTAM 4.5 GM in NORMAL SALINE 100 ML IV SCH ×2 (17:48→23:58)
[2017-10-13] MEDS: LANSOPRAZOLE 30 MG TAB.RAP.DR PO SCH (17:48)
[2017-10-13] MEDS ORDERED: PHOSPHORUS #1 250 MG TABLET PO ONE (19:00)
[2017-10-13] MEDS: ONDANSETRON 4 MG TAB.RAPDIS PO PRN (21:58)
[2017-10-13] MEDS ORDERED: MIDAZOLAM 2 MG/2 ML INJ ONE (23:55)
[2017-10-14] MEDS: LORAZEPAM INJ 2 MG/1 ML VIAL IV PRN ×8 (01:32→23:41)
[2017-10-14] MEDS: POTASSI CL 20 MEQ/1/2NS 1L 20 MEQ/1,000 ML RTUINJ IV PRN ×2 (04:24→17:35)
[2017-10-14 05:41] LABS: ABSOLUTE BASOPHILS # (AUTO) 0.1 10^3/uL (0.0-0.2); ABSOLUTE EOSINOPHILS # (AUTO) 0.1 10^3/uL (0.0-0.6); ABSOLUTE LYMPHOCYTES (AUTO) 2.4 10^3/uL (0.5-4.7); ABSOLUTE MONOCYTES (AUTO) 0.7 10^3/uL (0.1-1.4); ABSOLUTE NEUT (AUTO) 7.6 10^3/uL (1.7-8.2); BASOPHILS % (AUTO) 0.9 % (0-2); EOSINOPHILS % (AUTO) 0.8 % (0-6); HEMATOCRIT 30.4 % (37.9-51.0); HEMOGLOBIN 10.6 g/dL (13.5-17.0); LYMPHOCYTES % (AUTO) 22.2 % (13-45); MEAN CORPUSCULAR HEMOGLOBIN 33.9 pg (27.0-33.4); MEAN CORPUSCULAR HGB CONC 34.7 g/dL (32.0-36.0); MEAN CORPUSCULAR VOLUME 98 fl (80-97); MONOCYTES % (AUTO) 6.3 % (3-13); PLATELET COUNT 145 10^3/uL (150-450); RED BLOOD COUNT 3.11 10^6/uL (4.35-5.55); RED CELL DISTRIBUTION WIDTH 15.3 % (11.5-14.0); SEGMENTED NEUTROPHILS % (AUTO) 69.8 % (42-78); TOTAL CELLS COUNTED % (AUTO) 100 %; WHITE BLOOD COUNT 10.9 10^3/uL (4.0-10.5)
[2017-10-14 05:49] LABS: INTERNATIONAL RATION (INR) 2.31; PROTHROMBIN TIME 26.5 SEC (11.4-15.4)
[2017-10-14 06:02] LABS: ALANINE AMINOTRANSFERASE 32 U/L (21-72); ALBUMIN 2.7 g/dL (3.5-5.0); ALKALINE PHOSPHATASE 532 U/L (38-126); ANION GAP 17 (5-19); ASPARTATE AMINO TRANSFERASE 248 U/L (17-59); BILIRUBIN,DIRECT 6.8 mg/dL (0.0-0.4); BILIRUBIN,TOTAL 7.7 mg/dL (0.2-1.3); BLOOD UREA NITROGEN 2 mg/dL (7-20); CALCIUM 7.9 mg/dL (8.4-10.2); CARBON DIOXIDE 19 mmol/L (22-30); CHLORIDE 103 mmol/L (98-107); GLUCOSE 86 mg/dL (75-110); PHOSPHORUS 1.1 mg/dL (2.5-4.5); POTASSIUM 3.3 mmol/L (3.6-5.0); SODIUM 139.3 mmol/L (137-145); TOTAL PROTEIN 6.9 g/dL (6.3-8.2)
[2017-10-14] MEDS: LANSOPRAZOLE 30 MG TAB.RAP.DR PO SCH ×2 (06:24→17:27)
[2017-10-14 06:48] LABS: APPEARANCE,URINE CLEAR; BILIRUBIN,URINE MODERATE (NEGATIVE); COLOR,URINE AMBER; GLUCOSE, URINE NEGATIVE (NEGATIVE); KETONES,URINE NEGATIVE (NEGATIVE); LEUKOCYTE ESTERASE,URINE NEGATIVE (NEGATIVE); NITRITE,URINE NEGATIVE (NEGATIVE); PROTEIN,URINE NEGATIVE (NEGATIVE); URINE SPECIFIC GRAVITY 1.024
[2017-10-14] MEDS: PIPERACILLIN SODIUM/TAZOBACTAM 4.5 GM in NORMAL SALINE 100 ML IV SCH ×3 (07:04→17:27)
[2017-10-14] MEDS: NICOTINE 21 MG/24 HR PATCH.TD24 TD SCH (10:12)
[2017-10-14] MEDS: THIAMINE HCL 100 MG TABLET PO SCH (10:13)
[2017-10-14] MEDS: FOLIC ACID 1 MG TABLET PO SCH (10:13)
[2017-10-14] MEDS ORDERED: PHOSPHORUS #1 250 MG TABLET PO ONE (10:28)
[2017-10-14] MEDS ORDERED: METOPROLOL TARTRATE PF/INJ 5 MG/5 ML SDV IV ONE (10:32)
[2017-10-14] MEDS ORDERED: NORMAL SALINE 1000 ML 1,000 ML IV ONE (11:00)
[2017-10-14] MEDS: ENOXAPARIN SODIUM INJ 40 MG/0.4 ML DISP.SYRIN SUBCUT SCH (11:17)
[2017-10-14] MEDS ORDERED: NORMAL SALINE 250 ML IV PRN ×2 (11:38)
[2017-10-14] MEDS ORDERED: ALBUMIN HUMAN 50 ML IV SCH ×2 (15:00)
--- NOTE | 2017-10-14 15:54 | PROGRESS NOTE E ---
Progress Note NAME: RAMBO MARTINEZ : 1985 AGE: 32Y DATE: 10/14/2017 ROOM: 328 SUBJECTIVE: I had a lengthy discussion with the patient at bedside regarding his alcohol use and his current status. The patient stated that he had been told years ago that he was indeed cirrhotic and had hep C and was naive to treatment. Additionally the patient has not seen anyone in gastroenterology or hepatology and states, "I guess I should have that taken care of." I did explain to the patient the findings consistent with esophageal varices, as well as ascites, and the patient was obviously distressed about his prognosis. I called and discussed the case with Dr. Silva [facility] in an effort to initiate transfer. However, it was not felt the patient would benefit from tertiary care as no other medical management would be recommended or done at a tertiary facility. Recommendations were for the patient to remain here for supportive measures. I have relayed this information to the patient again who appears quite distressed at his overall condition. The patient himself denies any nausea, vomiting, diarrhea at this time but admits to ongoing abdominal pain, which I have reassured the patient should improve with effective paracentesis given the patient's very high benzodiazepine demand I do not feel comfortable giving additional opiates. REVIEW OF SYSTEMS: The rest of the review of systems negative. MEDICATIONS: Medications have been reviewed. OBJECTIVE: GENERAL: The patient is a 32-year-old who is awake, alert. He is oriented to person, time, place, situation, verbal, conversational. He does not appear to be distressed. VITAL SIGNS: Temperature is 99.1, pulse 115, respirations 18, blood pressure is 111/71, oxygen saturation is 100% on room air. SKIN: Jaundiced, dry. No rash. He is not diaphoretic. HEENT: Pupils are reactive. Sclerae are icteric. Conjunctivae are quite pale. CARDIOVASCULAR: Heart is tachycardic, regular. No rub. CHEST: Clear, symmetrical, unlabored. ABDOMEN: Distended, bowel sounds are present. EXTREMITIES: No clubbing, cyanosis, edema. PSYCHIATRIC: The patient does appear somewhat sleepy but is completely alert and oriented. DIAGNOSTICS: Lab values are as follows - hematology obtained on 10/14/2017; WBC 10.9, hemoglobin 10.6, hematocrit is 30.4, platelet count is 145,000. Chemistry obtained on 10/14/2017; sodium is 139, potassium is 2.3, chloride is 103, carbon dioxide 19, BUN 2, creatinine is 0.46, glucose 86. Lactic acid is 10.2, calcium is 10.9, phosphorus 1.1, magnesium is 1.6, bilirubin 7.7, AST is 248, ALT is 32, alk-phos 532. Ammonia is 81.4. Total protein 6.9, albumin 2.7. IMPRESSION AND PLAN: 1. SEPSIS, UNCERTAIN OF THE EXACT ETIOLOGY OF THIS. I do believe most likely this is a peritonitis. I have covered the patient with Zosyn for now. The has received bolus, still remains tachycardia. Lactic acid is on a downward trend. I have discussed the case with [facility] and no further management was recommended. Will give the patient fresh frozen plasma in an effort to improve the patient's INR and proceed with paracentesis, both diagnostic and therapeutic. 2. HYPOKALEMIA. This will be repleted. 3. HYPOMAGNESEMIA. This has been repleted. 4. HYPOCALCEMIA. The corrected calcium is in a stable range. 5. HYPOPHOSPHATEMIA. This will be repleted again. 6. METABOLIC ACIDOSIS, DUE TO UNDERLYING ALCOHOL CONSUMPTION. The patient has been hydrated and CO2 is improving. 7. ALCOHOL DEPENDENCY CONTINUOUS. Will continue to supplement B vitamins. 8. ALCOHOL WITHDRAWAL. The patient is tachycardic, anxious. Continue CIWA protocol and follow. 9. HEPATIC CIRRHOSIS DUE TO JASPREET. The patient has an elevated ammonia level, was given lactulose. Will start the patient on cefixime as well. 10. THICKENING OF ESOPHAGUS. Most likely a component of persistent portal hypertension and varices. Will start the patient on nadolol as well and as also cover for alcoholic gastritis. 11. HEPATITIS C, CHRONIC. Naive to treatment. CODE STATUS: The patient is a full code. DISPOSITION: Depending on the patient's symptomatology and diagnostic findings will reevaluate in the a.m. TIME SPENT: On this follow up, including assessment and plan, physical examination, patient education, review of records, and tertiary collaboration is 60 minutes. DICTATING PHYSICIAN: BHASKAR SOMMERS NP [id number] PHY#: [id number] ID: [id number] JOB#: [id number] ACCT: [id number] cc: > [facility]
[2017-10-14 16:45] LABS: INTERNATIONAL RATION (INR) 2.08; PROTHROMBIN TIME 24.4 SEC (11.4-15.4)
[2017-10-14] MEDS ORDERED: VANCOMYCIN HCL 0 MG in DEXTROSE 5%-WATER 250 ML IV NR (17:30)
[2017-10-14] MEDS ORDERED: ALBUMIN HUMAN 50 ML IV ONE (21:45)
[2017-10-14] MEDS: VANCOMYCIN HCL 1,500 MG in DEXTROSE 5%-WATER 250 ML IV SCH (22:13)
[2017-10-15] MEDS: PIPERACILLIN SODIUM/TAZOBACTAM 4.5 GM in NORMAL SALINE 100 ML IV SCH ×5 (00:02→23:56)
[2017-10-15] MEDS: METOPROLOL TARTRATE PF/INJ 5 MG/5 ML SDV IV PRN ×2 (01:19→11:59)
[2017-10-15] MEDS: LORAZEPAM INJ 2 MG/1 ML VIAL IV PRN ×10 (02:07→23:20)
[2017-10-15] MEDS: ALBUMIN HUMAN 50 ML IV SCH ×2 (03:26→08:12)
[2017-10-15] MEDS: ONDANSETRON 4 MG TAB.RAPDIS PO PRN ×2 (05:36→13:34)
[2017-10-15] MEDS: LANSOPRAZOLE 30 MG TAB.RAP.DR PO SCH ×2 (05:36→17:19)
[2017-10-15] MEDS: VANCOMYCIN HCL 1,500 MG in DEXTROSE 5%-WATER 250 ML IV SCH ×3 (05:44→22:07)
[2017-10-15] MEDS: FOLIC ACID 1 MG TABLET PO SCH (09:41)
[2017-10-15] MEDS: THIAMINE HCL 100 MG TABLET PO SCH (09:41)
[2017-10-15 09:44] LABS: HEMATOCRIT 28.9 % (37.9-51.0); MEAN CORPUSCULAR HGB CONC 34.7 g/dL (32.0-36.0); MEAN CORPUSCULAR VOLUME 98 fl (80-97); PLATELET COUNT 110 10^3/uL (150-450); RED BLOOD COUNT 2.95 10^6/uL (4.35-5.55); RED CELL DISTRIBUTION WIDTH 15.2 % (11.5-14.0); WHITE BLOOD COUNT 8.5 10^3/uL (4.0-10.5)
[2017-10-15] MEDS: NICOTINE 21 MG/24 HR PATCH.TD24 TD SCH (09:49)
[2017-10-15 10:00] LABS: ALANINE AMINOTRANSFERASE 29 U/L (21-72); ALBUMIN 3.1 g/dL (3.5-5.0); ALKALINE PHOSPHATASE 362 U/L (38-126); ANION GAP 18 (5-19); ASPARTATE AMINO TRANSFERASE 152 U/L (17-59); BILIRUBIN,DIRECT 7.8 mg/dL (0.0-0.4); BLOOD UREA NITROGEN 2 mg/dL (7-20); CARBON DIOXIDE 20 mmol/L (22-30); CHLORIDE 103 mmol/L (98-107); GLUCOSE 85 mg/dL (75-110); POTASSIUM 3.1 mmol/L (3.6-5.0); SODIUM 140.9 mmol/L (137-145); TOTAL PROTEIN 7.1 g/dL (6.3-8.2)
[2017-10-15] MEDS: ENOXAPARIN SODIUM INJ 40 MG/0.4 ML DISP.SYRIN SUBCUT SCH (10:05)
[2017-10-15] MEDS ORDERED: RIFAXIMIN 550 MG TABLET PO ONE (12:00)
[2017-10-15] MEDS: POTASSI CL 20 MEQ/1/2NS 1L 20 MEQ/1,000 ML RTUINJ IV PRN (12:17)
--- NOTE | 2017-10-15 14:02 | PDOC PROGRESS REPORT ---
Subjective Progress Note for:: 10/15/17 Subjective:: Patient is currently sedated. She has a history of cirrhosis of the liver with accompanying complications including esophageal varices, ascites and looks like he is currently having now delirium tremens. An attempt had been made to transfer him to [facility] however it is felt that patient had no other acute indications for transfer and supportive measures is suggested. It appears paracentesis was also attempted a planned but there was no fluid for aspiration Reason For Visit: ALCOHOL WITHDRAWAL Physical Exam Vital Signs: Temp Pulse Resp BP Pulse Ox 98.7 F 123 H 20 121/75 98 10/15/17 11:41 10/15/17 11:41 10/15/17 11:41 10/15/17 11:41 10/15/17 11:41 Intake & Output 10/14/17 10/15/17 10/16/17 06:59 06:59 06:59 Intake Total 4150 2851 0 Output Total 375 Balance 4150 2851 -375 Weight 97.2 kg 99.1 kg General appearance: PRESENT: no acute distress Head exam: PRESENT: atraumatic Ear exam: PRESENT: normal external ear exam Neck exam: ABSENT: carotid bruit, JVD, lymphadenopathy, thyromegaly Cardiovascular exam: PRESENT: RRR. ABSENT: diastolic murmur, rubs, systolic murmur GI/Abdominal exam: PRESENT: normal bowel sounds Rectal exam: PRESENT: deferred Neurological exam: PRESENT: other - sleeping Results Laboratory Results: 10/15/17 09:10 10/15/17 09:10 10/14/17 10/15/17 10/15/17 12:29 09:10 09:10 WBC 8.5 RBC 2.95 L Hgb 10.0 L Hct 28.9 L MCV 98 H MCH 34.0 H MCHC 34.7 RDW 15.2 H Plt Count 110 L Sodium 140.9 Potassium 3.1 L Chloride 103 Carbon Dioxide 20 L Anion Gap 18 BUN 2 L Creatinine 0.48 L Est GFR ( Amer) > 60 Est GFR (Non-Af Amer) > 60 Glucose 85 Calcium 8.0 L Total Bilirubin 9.0 H AST 152 H ALT 29 Alkaline Phosphatase 362 H Total Protein 7.1 Albumin 3.1 L Blood Type A POSITIVE Impressions: Chest/Abdomen CTA 10/12/17 13:46 IMPRESSION: No CT angio evidence of acute pulmonary emboli or thoracic aortic or abdominal aortic dissection or aneurysm. Hepatomegaly with recannulized umbilical vein and splenomegaly from portal hypertension. No CT evidence of portal vein, superior mesenteric vein, or hepatic vein thrombosis. No CT evidence of bowel obstruction Inflammatory changes around the distal esophagus with distal esophageal varices and inflammation in the surrounding para esophageal fat Findings discussed with Dr. Pelayo in the emergency room Assessment & Plan - Time Time Spent with patient: 15-24 minutes Medications reviewed and adjusted accordingly: Yes Anticipated discharge: Home - Inpatient Certification Based on my medical assessment, after consideration of the patient's comorbidities, presenting symptoms, or acuity I expect that the services needed warrant INPATIENT care.: Yes Medical Necessity: Need Close Monitoring Due to Risk of Patient Decompensation - Plan Summary Plan Summary: Sepsis possibly peritonitis although patient has no discernible ascites. However he does have underlying cirrhosis of the liver and this is certainly a consideration. 2. Coagulopathy secondary to cirrhosis. He did receive fresh frozen plasma prior to paracentesis that was planned yesterday. Patient remains coagulopathic as obviously the FFP will not reverse the underlying etiology 3. Electrolyte imbalance including hypokalemia and hypomagnesemia and hypocalcemia and hypophosphatemia will continue to monitor and replete 4. Metabolic acidosis likely secondary to alcohol abuse this is improving 5. Hepatic cirrhosis due to alcohol abuse. Will continue with the lactulose 6. Esophageal thickening likely secondary to his underlying cirrhosis of the liver. Will continue with PPI and patient will need outpatient GI evaluation including EGD valuation of varices 7. Chronic hepatitis C outpatient GI
[2017-10-15] MEDS ORDERED: POTASSIUM CHLORIDE 10 MEQ TABLET.SA PO ONE (15:00)
[2017-10-15] MEDS: RIFAXIMIN 550 MG TABLET PO SCH (17:19)
[2017-10-15] MEDS ORDERED: FENTANYL 12 MCG/HR PATCH.TD72 TD SCH (22:00)
[2017-10-16] MEDS: LORAZEPAM INJ 2 MG/1 ML VIAL IV PRN ×9 (01:56→23:51)
[2017-10-16] MEDS: METOPROLOL TARTRATE PF/INJ 5 MG/5 ML SDV IV PRN (04:32)
[2017-10-16] MEDS: PIPERACILLIN SODIUM/TAZOBACTAM 4.5 GM in NORMAL SALINE 100 ML IV SCH ×2 (05:41→11:22)
[2017-10-16] MEDS: POTASSI CL 20 MEQ/1/2NS 1L 20 MEQ/1,000 ML RTUINJ IV PRN ×2 (05:41→22:29)
[2017-10-16] MEDS: LANSOPRAZOLE 30 MG TAB.RAP.DR PO SCH (05:41)
[2017-10-16] MEDS: VANCOMYCIN HCL 1,500 MG in DEXTROSE 5%-WATER 250 ML IV SCH (06:23)
[2017-10-16 06:46] LABS: VANCOMYCIN,TROUGH 19.5 ug/mL (5.0-20.0)
[2017-10-16 09:43] LABS: ALANINE AMINOTRANSFERASE 25 U/L (21-72); ALBUMIN 3.1 g/dL (3.5-5.0); ALKALINE PHOSPHATASE 333 U/L (38-126); ANION GAP 19 (5-19); ASPARTATE AMINO TRANSFERASE 137 U/L (17-59); BILIRUBIN,DIRECT 8.7 mg/dL (0.0-0.4); BILIRUBIN,TOTAL 10.1 mg/dL (0.2-1.3); BLOOD UREA NITROGEN 2 mg/dL (7-20); CARBON DIOXIDE 15 mmol/L (22-30); CHLORIDE 105 mmol/L (98-107); GLUCOSE 105 mg/dL (75-110); POTASSIUM 3.4 mmol/L (3.6-5.0); SODIUM 138.8 mmol/L (137-145); TOTAL PROTEIN 7.3 g/dL (6.3-8.2)
[2017-10-16] MEDS: FOLIC ACID 1 MG TABLET PO SCH (10:07)
[2017-10-16] MEDS: THIAMINE HCL 100 MG TABLET PO SCH (10:07)
[2017-10-16] MEDS: RIFAXIMIN 550 MG TABLET PO SCH ×2 (10:07→17:05)
[2017-10-16] MEDS: NICOTINE 21 MG/24 HR PATCH.TD24 TD SCH (10:10)
[2017-10-16 10:14] LABS: ABSOLUTE BASOPHILS # (AUTO) 0.1 10^3/uL (0.0-0.2); ABSOLUTE EOSINOPHILS # (AUTO) 0.1 10^3/uL (0.0-0.6); ABSOLUTE LYMPHOCYTES (AUTO) 1.6 10^3/uL (0.5-4.7); ABSOLUTE MONOCYTES (AUTO) 0.8 10^3/uL (0.1-1.4); ABSOLUTE NEUT (AUTO) 8.1 10^3/uL (1.7-8.2); BASOPHILS % (AUTO) 1.1 % (0-2); EOSINOPHILS % (AUTO) 0.9 % (0-6); HEMATOCRIT 28.6 % (37.9-51.0); HEMOGLOBIN 9.7 g/dL (13.5-17.0); LYMPHOCYTES % (AUTO) 15.2 % (13-45); MEAN CORPUSCULAR HEMOGLOBIN 33.8 pg (27.0-33.4); MEAN CORPUSCULAR HGB CONC 34.1 g/dL (32.0-36.0); MEAN CORPUSCULAR VOLUME 99 fl (80-97); MONOCYTES % (AUTO) 7.3 % (3-13); PLATELET COUNT 115 10^3/uL (150-450); RED BLOOD COUNT 2.88 10^6/uL (4.35-5.55); RED CELL DISTRIBUTION WIDTH 15.4 % (11.5-14.0); SEGMENTED NEUTROPHILS % (AUTO) 75.5 % (42-78); TOTAL CELLS COUNTED % (AUTO) 100 %; WHITE BLOOD COUNT 10.7 10^3/uL (4.0-10.5)
[2017-10-16] MEDS: ENOXAPARIN SODIUM INJ 40 MG/0.4 ML DISP.SYRIN SUBCUT SCH (11:12)
[2017-10-16] MEDS ORDERED: POTASSIUM CHLORIDE 10 MEQ TABLET.SA PO ONE (11:33)
[2017-10-16] MEDS ORDERED: DEXTROSE 5%-WATER 1000 ML 1,000 ML with SODIUM BICARBONATE 100 MEQ IV PRN ×2 (11:35)
--- NOTE | 2017-10-16 11:53 | PDOC PROGRESS REPORT ---
Subjective Subjective:: Patient is currently sedated. She has a history of cirrhosis of the liver with accompanying complications including esophageal varices, ascites and looks like he is currently having now delirium tremens. An attempt had been made to transfer him to [facility] however it is felt that patient had no other acute indications for transfer and supportive measures is suggested. It appears paracentesis was also attempted a planned but there was no fluid for aspiration CT scan shows massive hepatomegaly as well as splenomegaly with varices in the left upper quadrant extending into paraesophageal region. The CT does not mention any findings of ascites although clinically patient does appear to have ascites. There was no mention of CBD stones and no other significant finding I am somewhat concerned about this patient given his significant findings with hallmarks of cirrhosis and possible peritonitis and 9 pending acidosis although he remains clinically stable. Will continue to monitor closely. I believe he needs to be assessed by a asset protection assistant and currently there is none available at the hospital. Reason For Visit: ALCOHOL WITHDRAWAL Physical Exam Vital Signs: Temp Pulse Resp BP Pulse Ox 98.3 F 124 H 18 120/75 98 10/16/17 11:14 10/16/17 11:14 10/16/17 11:14 10/16/17 11:14 10/16/17 11:14 Intake & Output 10/15/17 10/16/17 10/17/17 06:59 06:59 06:59 Intake Total 2851 2049 Output Total 375 Balance 2851 1674 Weight 99.1 kg 99.1 kg General appearance: PRESENT: no acute distress Head exam: PRESENT: atraumatic Ear exam: PRESENT: normal external ear exam Respiratory exam: PRESENT: clear to auscultation jason. ABSENT: rales, rhonchi, wheezes Cardiovascular exam: PRESENT: RRR. ABSENT: diastolic murmur, rubs, systolic murmur GI/Abdominal exam: PRESENT: distended, normal bowel sounds, tenderness Rectal exam: PRESENT: deferred Extremities exam: PRESENT: full ROM. ABSENT: calf tenderness, clubbing, pedal edema Musculoskeletal exam: PRESENT: other - bilateral gynecomastia Neurological exam: PRESENT: awake, oriented to person Psychiatric exam: PRESENT: appropriate affect, normal mood. ABSENT: homicidal ideation, suicidal ideation Results Laboratory Results: 10/16/17 05:33 10/16/17 05:33 10/16/17 10/16/17 05:33 05:33 WBC 10.7 H RBC 2.88 L Hgb 9.7 L Hct 28.6 L MCV 99 H MCH 33.8 H MCHC 34.1 RDW 15.4 H Plt Count 115 L Seg Neutrophils % 75.5 Lymphocytes % 15.2 Monocytes % 7.3 Eosinophils % 0.9 Basophils % 1.1 Absolute Neutrophils 8.1 Absolute Lymphocytes 1.6 Absolute Monocytes 0.8 Absolute Eosinophils 0.1 Absolute Basophils 0.1 Sodium 138.8 Potassium 3.4 L Chloride 105 Carbon Dioxide 15 L Anion Gap 19 BUN 2 L Creatinine 0.60 Est GFR ( Amer) > 60 Est GFR (Non-Af Amer) > 60 Glucose 105 Calcium 8.0 L Total Bilirubin 10.1 H AST 137 H ALT 25 Alkaline Phosphatase 333 H Total Protein 7.3 Albumin 3.1 L 10/14/17 06:24 Clean Catch Midstream Urine Culture - Final NO GROWTH 2 DAYS Impressions: Chest/Abdomen CTA 10/12/17 13:46 IMPRESSION: No CT angio evidence of acute pulmonary emboli or thoracic aortic or abdominal aortic dissection or aneurysm. Hepatomegaly with recannulized umbilical vein and splenomegaly from portal hypertension. No CT evidence of portal vein, superior mesenteric vein, or hepatic vein thrombosis. No CT evidence of bowel obstruction Inflammatory changes around the distal esophagus with distal esophageal varices and inflammation in the surrounding para esophageal fat Findings discussed with Dr. Pelayo in the emergency room Assessment & Plan - Time Time Spent with patient: 25-34 minutes Medications reviewed and adjusted accordingly: Yes Anticipated discharge: Home - Inpatient Certification Based on my medical assessment, after consideration of the patient's comorbidities, presenting symptoms, or acuity I expect that the services needed warrant INPATIENT care.: Yes Medical Necessity: Significant Comorbidiites Make Outpatient Treatment Too Risky , Need Close Monitoring Due to Risk of Patient Decompensation - Plan Summary Plan Summary: 1. Sepsis possibly peritonitis. He has underlying cirrhosis of the liver and so will cover. will order an abdominal sonogram as his alkaline phosphatase continues to worsen. I will also change his antibiotics to ceftriaxone as I see no indication for Zosyn and vancomycin for possible SBP. 2. Coagulopathy secondary to cirrhosis. He did receive fresh frozen plasma prior to paracentesis that was planned yesterday. Patient remains coagulopathic as obviously the FFP will not reverse the underlying etiology. Will recheck INR 3. Electrolyte imbalance including hypokalemia and hypomagnesemia and hypocalcemia and hypophosphatemia will continue to monitor and replete 4. Metabolic acidosis likely secondary to alcohol abuse this is improving 5. Hepatic cirrhosis due to alcohol abuse. Will continue with the lactulose 6. Esophageal thickening likely secondary to his underlying cirrhosis of the liver. Will continue with PPI and patient will need outpatient GI evaluation including EGD valuation of varices 7. Chronic hepatitis C outpatient GI 8. He will be started on bicarbonate drip and his potassium will be replaced. 9. Add Lactulose to regimen, check ammonia level
[2017-10-16] MEDS: LACTULOSE SYRUP 20 GM/30 ML UDCUP PO SCH ×3 (12:09→23:51)
[2017-10-16] MEDS: CEFTRIAXONE 2 GM/D5W RTU 2 GM/50 ML RTUPB IV SCH (14:04)
--- NOTE | 2017-10-16 15:32 | RADIOLOGY REPORT (SQ) ---
EXAM DESCRIPTION: U/S ABDOMEN COMPLETE W/DOPPLER COMPLETED DATE/TIME: 10/16/2017 3:21 pm REASON FOR STUDY: Transaminitis, ETOH abuse COMPARISON: None. TECHNIQUE: Dynamic and static grayscale images acquired of the abdomen and recorded on PACS. Marcelleo jose enrique selected color Doppler and spectral images recorded. LIMITATIONS: None. FINDINGS: PANCREAS: Not visualized. LIVER: Fatty infiltration. 18.3 cm. LIVER VASCULATURE: Normal directional flow of the main portal vein and hepatic veins. Recanalization of the umbilical veins. GALLBLADDER: Thickened wall. 6.7 mm. No identified stones. ULTRASOUND-DETECTED GUAMAN'S SIGN: Negative. INTRAHEPATIC DUCTS AND COMMON DUCT: CBD and intrahepatic ducts normal caliber. No filling defects. INFERIOR VENA CAVA: Normal flow. AORTA: No aneurysm. RIGHT KIDNEY: Normal size. Normal echogenicity. No solid or suspicious masses. No hydronephros is. No calcifications. LEFT KIDNEY: Normal size. Normal echogenicity. No solid or suspicious masses. No hydronephrosi s. No calcifications. SPLEEN: Splenomegaly. 19.9 cm. PERITONEAL AND PLEURAL SPACES: No ascites or effusions. OTHER: No other significant finding. IMPRESSION: Fatty enlarged liver. Recanalization of the umbilical veins. Thickened gallbladder wall of 6.7 mm. No identified stones. Splenomegaly. TECHNICAL DOCUMENTATION: JOB ID: [id number] [employer]- All Rights Reserved Reading location - IP/workstation name: [email or web address]
[2017-10-16] MEDS: PANTOPRAZOLE SODIUM 40 MG VIAL IV SCH (17:05)
[2017-10-16] MEDS: CLONIDINE HCL 0.2 MG TABLET PO SCH ×2 (17:54→23:51)
[2017-10-16] MEDS ORDERED: LORAZEPAM 1 MG TABLET PO SCH (18:00)
[2017-10-17] MEDS: LORAZEPAM 1 MG TABLET PO SCH ×4 (03:02→20:00)
[2017-10-17] MEDS: CLONIDINE HCL 0.2 MG TABLET PO SCH ×4 (05:55→23:47)
[2017-10-17] MEDS: LORAZEPAM INJ 2 MG/1 ML VIAL IV PRN ×4 (05:55→21:31)
[2017-10-17] MEDS: ONDANSETRON 4 MG TAB.RAPDIS PO PRN (05:55)
[2017-10-17] MEDS: LACTULOSE SYRUP 20 GM/30 ML UDCUP PO SCH ×4 (06:30→23:47)
[2017-10-17 06:42] LABS: HEMATOCRIT 27.5 % (37.9-51.0); HEMOGLOBIN 9.5 g/dL (13.5-17.0); MEAN CORPUSCULAR HEMOGLOBIN 33.9 pg (27.0-33.4); MEAN CORPUSCULAR HGB CONC 34.5 g/dL (32.0-36.0); MEAN CORPUSCULAR VOLUME 98 fl (80-97); RED CELL DISTRIBUTION WIDTH 15.4 % (11.5-14.0); WHITE BLOOD COUNT 9.6 10^3/uL (4.0-10.5)
[2017-10-17 07:04] LABS: ALANINE AMINOTRANSFERASE 25 U/L (21-72); ALBUMIN 2.9 g/dL (3.5-5.0); ALKALINE PHOSPHATASE 281 U/L (38-126); ANION GAP 16 (5-19); ASPARTATE AMINO TRANSFERASE 98 U/L (17-59); BILIRUBIN,DIRECT 10.1 mg/dL (0.0-0.4); BILIRUBIN,TOTAL 11.3 mg/dL (0.2-1.3); BLOOD UREA NITROGEN 2 mg/dL (7-20); CALCIUM 8.1 mg/dL (8.4-10.2); CARBON DIOXIDE 17 mmol/L (22-30); CHLORIDE 107 mmol/L (98-107); GLUCOSE 88 mg/dL (75-110); POTASSIUM 3.5 mmol/L (3.6-5.0); SODIUM 140.3 mmol/L (137-145); TOTAL PROTEIN 6.9 g/dL (6.3-8.2)
[2017-10-17 07:14] LABS: PLATELET COUNT 99 10^3/uL (150-450)
[2017-10-17] MEDS ORDERED: MAGNESIUM SULFATE 4 GM/100 ML RTUPB IV ONE (09:00)
[2017-10-17] MEDS: RIFAXIMIN 550 MG TABLET PO SCH ×2 (10:31→17:03)
[2017-10-17] MEDS: THIAMINE HCL 100 MG TABLET PO SCH (10:31)
[2017-10-17] MEDS: NICOTINE 21 MG/24 HR PATCH.TD24 TD SCH (10:31)
[2017-10-17] MEDS: FOLIC ACID 1 MG TABLET PO SCH (10:31)
--- NOTE | 2017-10-17 10:31 | PDOC PROGRESS REPORT ---
Subjective Progress Note for:: 10/17/17 Subjective:: Patient is more awake today. He has a history of cirrhosis of the liver with accompanying complications including esophageal varices, ascites and looks like he is currently having now delirium tremens. An attempt had been made to transfer him to [facility] however it is felt that patient had no other acute indications for transfer and supportive measures is suggested. It appears paracentesis was also attempted a planned but there was no fluid for aspiration CT scan shows massive hepatomegaly as well as splenomegaly with varices in the left upper quadrant extending into paraesophageal region. The CT does not mention any findings of ascites although clinically patient does appear to have ascites. There was no mention of CBD stones and no other significant finding I am somewhat concerned about this patient given his significant findings with hallmarks of cirrhosis and possible peritonitis and 9 pending acidosis although he remains clinically stable. Will continue to monitor closely. Reason For Visit: ALCOHOL WITHDRAWAL Physical Exam Vital Signs: Temp Pulse Resp BP Pulse Ox 98.9 F 113 H 20 112/71 97 10/17/17 08:08 10/17/17 08:08 10/17/17 08:08 10/17/17 08:08 10/17/17 08:08 Intake & Output 10/16/17 10/17/17 10/18/17 06:59 06:59 06:59 Intake Total 2049 2577 Output Total 375 Balance 1674 2577 Weight 99.1 kg 96.5 kg General appearance: PRESENT: no acute distress, well-developed Head exam: PRESENT: atraumatic Eye exam: PRESENT: other - icteric Ear exam: PRESENT: normal external ear exam Neck exam: ABSENT: carotid bruit, JVD, lymphadenopathy, thyromegaly Respiratory exam: PRESENT: clear to auscultation jason. ABSENT: rales, rhonchi, wheezes GI/Abdominal exam: PRESENT: firm, hypoactive bowel sounds, tenderness - slightly less Rectal exam: PRESENT: deferred Extremities exam: PRESENT: full ROM. ABSENT: calf tenderness, clubbing, pedal edema Musculoskeletal exam: PRESENT: other - unsteady Neurological exam: PRESENT: alert, awake, oriented to person, oriented to place , oriented to situation Psychiatric exam: ABSENT: agitated Results Laboratory Results: 10/17/17 06:25 10/17/17 06:25 10/17/17 10/17/17 10/17/17 06:25 06:25 06:25 WBC 9.6 RBC 2.80 L Hgb 9.5 L Hct 27.5 L MCV 98 H MCH 33.9 H MCHC 34.5 RDW 15.4 H Plt Count 99 L Sodium 140.3 Potassium 3.5 L Chloride 107 Carbon Dioxide 17 L Anion Gap 16 BUN 2 L Creatinine 0.64 Est GFR ( Amer) > 60 Est GFR (Non-Af Amer) > 60 Glucose 88 Lactic Acid 1.9 Calcium 8.1 L Magnesium 1.1 L* Total Bilirubin 11.3 H AST 98 H ALT 25 Alkaline Phosphatase 281 H Ammonia Total Protein 6.9 Albumin 2.9 L 10/17/17 06:25 WBC RBC Hgb Hct MCV MCH MCHC RDW Plt Count Sodium Potassium Chloride Carbon Dioxide Anion Gap BUN Creatinine Est GFR ( Amer) Est GFR (Non-Af Amer) Glucose Lactic Acid Calcium Magnesium Total Bilirubin AST ALT Alkaline Phosphatase Ammonia 67.3 H Total Protein Albumin 10/14/17 06:24 Clean Catch Midstream Urine Culture - Final NO GROWTH 2 DAYS Impressions: Chest/Abdomen CTA 10/12/17 13:46 IMPRESSION: No CT angio evidence of acute pulmonary emboli or thoracic aortic or abdominal aortic dissection or aneurysm. Hepatomegaly with recannulized umbilical vein and splenomegaly from portal hypertension. No CT evidence of portal vein, superior mesenteric vein, or hepatic vein thrombosis. No CT evidence of bowel obstruction Inflammatory changes around the distal esophagus with distal esophageal varices and inflammation in the surrounding para esophageal fat Findings discussed with Dr. Pelayo in the emergency room Abdomen Ultrasound 10/16/17 00:00 IMPRESSION: Fatty enlarged liver. Recanalization of the umbilical veins. Thickened gallbladder wall of 6.7 mm. No identified stones. Splenomegaly. Assessment & Plan - Time Time Spent with patient: 15-24 minutes Medications reviewed and adjusted accordingly: Yes Anticipated discharge: Home - Inpatient Certification Based on my medical assessment, after consideration of the patient's comorbidities, presenting symptoms, or acuity I expect that the services needed warrant INPATIENT care.: Yes Medical Necessity: Significant Comorbidiites Make Outpatient Treatment Too Risky , Need Close Monitoring Due to Risk of Patient Decompensation, Need for IV Antibiotics - Plan Summary Plan Summary: 1. Sepsis possibly spontaneous bacterial peritonitis underlying cirrhosis of the liver. Sonogram noted. No evidence of CBD although T bili still increasing. 2. Coagulopathy secondary to cirrhosis. He did receive fresh frozen plasma prior to paracentesis that was planned . Patient remains coagulopathic as obviously the FFP will not reverse the underlying etiology. He is also thrombocytopenic likely from his liver disease. Will change to Arixtra, check PT/INR 3. Electrolyte imbalance including hypokalemia and hypomagnesemia and hypocalcemia and hypophosphatemia -continue to monitor and replete 4. Metabolic acidosis likely secondary to alcohol abuse this is improving on HCO drip 5. Hepatic cirrhosis due to alcohol abuse. Will continue with the lactulose and Xifaxan. 6. Esophageal thickening likely secondary to his underlying cirrhosis of the liver. Will continue with PPI and patient will need outpatient GI evaluation including EGD evaluation of varices 7. Chronic hepatitis C outpatient GI 8.Cont bicarbonate drip, PPI and check hepatitis, AFP.
[2017-10-17] MEDS: FONDAPARINUX SODIUM INJ 2.5 MG/0.5 ML DISP.SYRIN SUBCUT SCH (10:45)
[2017-10-17] MEDS: CEFTRIAXONE 2 GM/D5W RTU 2 GM/50 ML RTUPB IV SCH (12:39)
[2017-10-17] MEDS: PANTOPRAZOLE SODIUM 40 MG VIAL IV SCH (17:04)
[2017-10-17] MEDS: POTASSI CL 20 MEQ/1/2NS 1L 20 MEQ/1,000 ML RTUINJ IV PRN (23:46)
[2017-10-18] MEDS: LORAZEPAM 1 MG TABLET PO SCH ×3 (03:16→21:07)
[2017-10-18] MEDS: CLONIDINE HCL 0.2 MG TABLET PO SCH ×4 (05:50→23:53)
[2017-10-18] MEDS: LACTULOSE SYRUP 20 GM/30 ML UDCUP PO SCH ×5 (05:50→21:07)
[2017-10-18] MEDS: LORAZEPAM INJ 2 MG/1 ML VIAL IV PRN ×4 (05:50→16:24)
[2017-10-18 06:20] LABS: HEMATOCRIT 26.4 % (37.9-51.0); HEMOGLOBIN 9.5 g/dL (13.5-17.0); MEAN CORPUSCULAR HEMOGLOBIN 35.2 pg (27.0-33.4); MEAN CORPUSCULAR HGB CONC 35.9 g/dL (32.0-36.0); MEAN CORPUSCULAR VOLUME 98 fl (80-97); PLATELET COUNT 136 10^3/uL (150-450); RED CELL DISTRIBUTION WIDTH 15.8 % (11.5-14.0); WHITE BLOOD COUNT 8.8 10^3/uL (4.0-10.5)
[2017-10-18 06:25] LABS: INTERNATIONAL RATION (INR) 3.99
[2017-10-18 06:39] LABS: ALANINE AMINOTRANSFERASE 25 U/L (21-72); ALBUMIN 2.8 g/dL (3.5-5.0); ALKALINE PHOSPHATASE 281 U/L (38-126); ANION GAP 12 (5-19); ASPARTATE AMINO TRANSFERASE 86 U/L (17-59); BILIRUBIN,DIRECT 10.3 mg/dL (0.0-0.4); BILIRUBIN,TOTAL 11.5 mg/dL (0.2-1.3); BLOOD UREA NITROGEN 2 mg/dL (7-20); CARBON DIOXIDE 17 mmol/L (22-30); CHLORIDE 110 mmol/L (98-107); GLUCOSE 97 mg/dL (75-110); POTASSIUM 3.5 mmol/L (3.6-5.0); SODIUM 138.8 mmol/L (137-145); TOTAL PROTEIN 6.7 g/dL (6.3-8.2)
[2017-10-18 06:40] LABS: PROTHROMBIN TIME 40.7 SEC (11.4-15.4)
[2017-10-18] MEDS: ONDANSETRON 4 MG TAB.RAPDIS PO PRN ×2 (07:53→17:58)
[2017-10-18] MEDS ORDERED: PHYTONADIONE 5 MG TABLET PO ONE (09:19)
[2017-10-18] MEDS: THIAMINE HCL 100 MG TABLET PO SCH (09:21)
[2017-10-18] MEDS: RIFAXIMIN 550 MG TABLET PO SCH ×2 (09:21→17:05)
[2017-10-18] MEDS: FONDAPARINUX SODIUM INJ 2.5 MG/0.5 ML DISP.SYRIN SUBCUT SCH (09:21)
[2017-10-18] MEDS: FOLIC ACID 1 MG TABLET PO SCH (09:21)
[2017-10-18] MEDS: NICOTINE 21 MG/24 HR PATCH.TD24 TD SCH (09:29)
[2017-10-18] MEDS ORDERED: LORAZEPAM 1 MG TABLET PO ONE (10:00)
[2017-10-18] MEDS: SODIUM BICARBONATE 650 MG TABLET PO SCH ×2 (10:24→21:07)
[2017-10-18] MEDS ORDERED: LIDOCAINE 5% (700 MG) TRANSDERMAL ADH..PATCH TP ONE (10:45)
[2017-10-18] MEDS: POTASSI CL 20 MEQ/1/2NS 1L 20 MEQ/1,000 ML RTUINJ IV PRN ×2 (12:05→23:58)
--- NOTE | 2017-10-18 12:12 | RADIOLOGY REPORT (SQ) ---
EXAM DESCRIPTION: KUB/ABDOMEN (SINGLE VIEW) COMPLETED DATE/TIME: 10/18/2017 11:56 am REASON FOR STUDY: Abdomen distension COMPARISON: None. NUMBER OF VIEWS: One view. TECHNIQUE: Supine radiographic image of the abdomen acquired. LIMITATIONS: None. FINDINGS: BOWEL GAS PATTERN: Normal bowel gas pattern. No dilated loops. CALCIFICATIONS: No suspicious calcifications. SOFT TISSUES: No gross mass or suggestion of organomegaly. HARDWARE: None. BONES: No bone lesions or fracture. OTHER: No other significant finding. IMPRESSION: NO RADIOGRAPHIC EVIDENCE FOR ACUTE ABDOMINAL DISEASE. Reading location - IP/workstation name: [email or web address]
--- NOTE | 2017-10-18 12:28 | PDOC PROGRESS REPORT ---
Subjective Progress Note for:: 10/18/17 Subjective:: Patient is more awake today. He has a history of cirrhosis of the liver with accompanying complications including esophageal varices, ascites and looks like he is currently having now delirium tremens. An attempt had been made to transfer him to [facility] however it is felt that patient had no other acute indications for transfer and supportive measures is suggested. It appears paracentesis was also attempted a planned but there was no fluid for aspiration CT scan shows massive hepatomegaly as well as splenomegaly with varices in the left upper quadrant extending into paraesophageal region. The CT does not mention any findings of ascites although clinically patient does appear to have ascites. There was no mention of CBD stones and no other significant finding I am somewhat concerned about this patient given his significant findings with hallmarks of cirrhosis and possible peritonitis and acidosis although he remains clinically stable. Will continue to monitor closely. Reason For Visit: ALCOHOL WITHDRAWAL Physical Exam Vital Signs: Temp Pulse Resp BP Pulse Ox 99.3 F 108 H 18 116/67 95 10/18/17 07:44 10/18/17 07:44 10/18/17 07:44 10/18/17 07:44 10/18/17 07:44 Intake & Output 10/17/17 10/18/17 10/19/17 06:59 06:59 06:59 Intake Total 2577 2036 Balance 2577 2036 Weight 96.5 kg 96.2 kg General appearance: PRESENT: no acute distress, well-developed Head exam: PRESENT: atraumatic Eye exam: PRESENT: scleral icterus Ear exam: PRESENT: normal external ear exam Neck exam: ABSENT: carotid bruit, JVD, lymphadenopathy, thyromegaly GI/Abdominal exam: PRESENT: distended, normal bowel sounds, rebound, tenderness Rectal exam: PRESENT: deferred Musculoskeletal exam: PRESENT: other - unsteady Neurological exam: PRESENT: alert, awake Results Laboratory Results: 10/18/17 06:06 10/18/17 06:06 10/18/17 10/18/17 10/18/17 06:06 06:06 06:06 WBC 8.8 RBC 2.70 L Hgb 9.5 L Hct 26.4 L MCV 98 H MCH 35.2 H MCHC 35.9 RDW 15.8 H Plt Count 136 L Sodium 138.8 Potassium 3.5 L Chloride 110 H Carbon Dioxide 17 L Anion Gap 12 BUN 2 L Creatinine 0.61 Est GFR ( Amer) > 60 Est GFR (Non-Af Amer) > 60 Glucose 97 Calcium 8.0 L Magnesium 1.9 Total Bilirubin 11.5 H AST 86 H ALT 25 Alkaline Phosphatase 281 H Ammonia 83.5 H Total Protein 6.7 Albumin 2.8 L Impressions: Chest/Abdomen CTA 10/12/17 13:46 IMPRESSION: No CT angio evidence of acute pulmonary emboli or thoracic aortic or abdominal aortic dissection or aneurysm. Hepatomegaly with recannulized umbilical vein and splenomegaly from portal hypertension. No CT evidence of portal vein, superior mesenteric vein, or hepatic vein thrombosis. No CT evidence of bowel obstruction Inflammatory changes around the distal esophagus with distal esophageal varices and inflammation in the surrounding para esophageal fat Findings discussed with Dr. Pelayo in the emergency room Abdomen Ultrasound 10/16/17 00:00 IMPRESSION: Fatty enlarged liver. Recanalization of the umbilical veins. Thickened gallbladder wall of 6.7 mm. No identified stones. Splenomegaly. Assessment & Plan - Time Time Spent with patient: 25-34 minutes Medications reviewed and adjusted accordingly: Yes - Inpatient Certification Based on my medical assessment, after consideration of the patient's comorbidities, presenting symptoms, or acuity I expect that the services needed warrant INPATIENT care.: Yes Medical Necessity: Need for IV Antibiotics, Risk of Complication if Not Cared For in Hospital - Plan Summary Plan Summary: 1. Sepsis possibly spontaneous bacterial peritonitis underlying cirrhosis of the liver. Sonogram noted. No evidence of CBD although T bili still increasing. 2. Coagulopathy secondary to cirrhosis. He did receive fresh frozen plasma prior to paracentesis that was planned . Patient remains coagulopathic as obviously the FFP will not reverse the underlying etiology. INR at 3.99 today He remains thrombocytopenic likely from his liver disease. Platelet count slightly better today. Continue Arixtra 3. Electrolyte imbalance including hypokalemia and hypomagnesemia and hypocalcemia and hypophosphatemia -continue to monitor and replete 4. Metabolic acidosis likely secondary to alcohol abuse this is improving. Start oral HCO 5. Hepatic cirrhosis due to alcohol abuse. Will increase dose of lactulose and cont Xifaxan. 6. Esophageal thickening likely secondary to his underlying cirrhosis of the liver. Will continue with PPI and patient will need outpatient GI evaluation including EGD evaluation of varices if not possible inpatient 7. Chronic hepatitis C outpatient GI 8.Hepatitis C, untreated. 9. I discussed with the machine repairer maintenance on-call at [facility] today again and they have nothing else to offer. He did suggest placing him on prednisone 60 mg daily for 7 days. He also suggested a trial of vitamin K which already given this morning and suggest discontinuing prophylactic anticoagulant as patient is already subtherapeutic. Because of ongoing alcohol abuse as well as his underlying hepatitis C alcoholic cirrhosis there really have nothing else to offer him and suggest continuing supportive care.
[2017-10-18] MEDS ORDERED: PREDNISONE 20 MG TABLET PO ONE (13:00)
[2017-10-18] MEDS: CEFTRIAXONE 2 GM/D5W RTU 2 GM/50 ML RTUPB IV SCH (14:13)
[2017-10-18] MEDS: PANTOPRAZOLE SODIUM 40 MG VIAL IV SCH (17:10)
[2017-10-19] MEDS: LORAZEPAM 1 MG TABLET PO SCH ×3 (02:19→16:24)
[2017-10-19] MEDS: ONDANSETRON 4 MG TAB.RAPDIS PO PRN (02:19)
[2017-10-19] MEDS: LACTULOSE SYRUP 20 GM/30 ML UDCUP PO SCH ×6 (02:29→21:00)
[2017-10-19 06:06] LABS: HEMATOCRIT 29.7 % (37.9-51.0); HEMOGLOBIN 10.3 g/dL (13.5-17.0); MEAN CORPUSCULAR HGB CONC 34.5 g/dL (32.0-36.0); MEAN CORPUSCULAR VOLUME 98 fl (80-97); PLATELET COUNT 216 10^3/uL (150-450); RED BLOOD COUNT 3.02 10^6/uL (4.35-5.55); RED CELL DISTRIBUTION WIDTH 16.3 % (11.5-14.0); WHITE BLOOD COUNT 8.7 10^3/uL (4.0-10.5)
[2017-10-19] MEDS: CLONIDINE HCL 0.2 MG TABLET PO SCH ×3 (06:20→17:30)
[2017-10-19 06:30] LABS: ALANINE AMINOTRANSFERASE 22 U/L (21-72); ALBUMIN 3.4 g/dL (3.5-5.0); ALKALINE PHOSPHATASE 299 U/L (38-126); ANION GAP 18 (5-19); ASPARTATE AMINO TRANSFERASE 87 U/L (17-59); BILIRUBIN,DIRECT 12.2 mg/dL (0.0-0.4); BILIRUBIN,TOTAL 13.5 mg/dL (0.2-1.3); BLOOD UREA NITROGEN 3 mg/dL (7-20); CALCIUM 8.5 mg/dL (8.4-10.2); CARBON DIOXIDE 17 mmol/L (22-30); CHLORIDE 109 mmol/L (98-107); GLUCOSE 128 mg/dL (75-110); POTASSIUM 3.8 mmol/L (3.6-5.0); SODIUM 143.9 mmol/L (137-145); TOTAL PROTEIN 7.9 g/dL (6.3-8.2)
[2017-10-19] MEDS: FONDAPARINUX SODIUM INJ 2.5 MG/0.5 ML DISP.SYRIN SUBCUT SCH (09:05)
[2017-10-19] MEDS: PREDNISONE 20 MG TABLET PO SCH (09:05)
[2017-10-19] MEDS: SODIUM BICARBONATE 650 MG TABLET PO SCH ×2 (09:05→21:01)
[2017-10-19] MEDS: RIFAXIMIN 550 MG TABLET PO SCH ×2 (09:06→17:31)
[2017-10-19] MEDS: THIAMINE HCL 100 MG TABLET PO SCH (09:06)
[2017-10-19] MEDS: LIDOCAINE 5% (700 MG) TRANSDERMAL ADH..PATCH TP SCH (09:06)
[2017-10-19] MEDS: FOLIC ACID 1 MG TABLET PO SCH (09:06)
[2017-10-19] MEDS: NICOTINE 21 MG/24 HR PATCH.TD24 TD SCH (09:07)
--- NOTE | 2017-10-19 09:32 | PDOC CONSULTATION ---
Consultation Consult Date: 10/19/17 Attending physician:: SHAREE RAIN Consult reason:: cirrhosis, abnormal CT scan, coagulopathy, abnormal LFT's. delirium tremons History of Present Illness Admission Date/PCP: 10/12/17 18:51 History of Present Illness: RAMBO MARTINEZ is a 32 year old male patient has seen Dr Shaver previous EGD done, multiple admission for alcohol related issues has DT's at this point in time has esophageal varices in the past however coagulopathy is significant with INR at 4 patient has abnormal LFT. suggestive of alcoholic hepatitis as well Hgb is stable not a candidate for EGD unless INR is < 1.5 Past Medical History Cardiac Medical History: Reports: Hyperlipidema, Hypertension Pulmonary Medical History: Reports: Bronchitis Neurological Medical History: Denies: Seizures GI Medical History: Reports: Cirrhosis, Hepatitis - Hepatitis-C Musculoskeltal Medical History: Reports: Arthritis, Gout Psychiatric Medical History: Reports: Bipolar Disorder, Post Traumatic Stress Disorder Comment Only: Depression - anxiety Past Surgical History Past Surgical History: Reports: Orthopedic Surgery - R hand Social History Smoking Status: Current Every Day Smoker Cigarettes Packs Per Day: 2 Frequency of Alcohol Use: Heavy Hx Recreational Drug Use: Yes Drugs: Marijuana, Other Hx Prescription Drug Abuse: Yes - Advance Directive Resuscitation Status: Full Code Family History Family History: CAD, CVA, Hyperlipidemia, Hypertension, Malignancy, Thyroid Disfunction Parental Family History Reviewed: Yes Children Family History Reviewed: Unknown Sibling(s) Family History Reviewed.: Unknown Medication/Allergy Home Medications: Cholestyramine (with Sugar) [Questran Powder] 1 packet PO MEALSHS 10/12/17 Clonidine HCl [Catapres 0.1 mg Tablet] 0.1 mg PO QHS 10/12/17 Folic Acid [Folvite 1 mg Tablet] 1 mg PO DAILY 10/12/17 Thiamine HCl [Thiamine 100 mg Tablet] 100 mg PO DAILY 10/12/17 Allergies/Adverse Reactions: carisoprodol [From Soma] Allergy (Verified 06/26/17 16:38) Sulfa (Sulfonamide Antibiotics) Allergy (Verified 06/26/17 16:38) Review of Systems Constitutional: ABSENT: headache(s), night sweats Eyes: ABSENT: visual disturbances Ears: ABSENT: hearing changes Nose, Mouth, and Throat: ABSENT: mouth pain Cardiovascular: ABSENT: edema, orthropnea Respiratory: PRESENT: dyspnea Gastrointestinal: ABSENT: diarrhea, melena, nausea, vomiting Genitourinary: ABSENT: dysuria, hematuria Integumentary: ABSENT: lesions, pruritus Neurological: PRESENT: tremor(s). ABSENT: syncope, tingling, vertigo Endocrine: ABSENT: polydipsia, polyphagia, polyuria Physical Exam Vital Signs: Temp Pulse Resp BP Pulse Ox 97.1 F 92 16 126/81 H 98 10/19/17 07:28 10/19/17 07:28 10/19/17 07:28 10/19/17 07:28 10/19/17 07:28 Intake & Output 10/18/17 10/19/17 10/20/17 06:59 06:59 06:59 Intake Total 2035 379 Balance 2035 3789 Weight 96.2 kg 93.1 kg General appearance: PRESENT: mild distress Head exam: PRESENT: atraumatic, normocephalic Eye exam: PRESENT: EOMI, PERRLA, scleral icterus. ABSENT: nystagmus Mouth exam: PRESENT: moist Throat exam: ABSENT: tonsillar exudate, tonsillogmegaly Neck exam: ABSENT: meningismus, tenderness, thyromegaly Respiratory exam: PRESENT: symmetrical. ABSENT: tachypnea, wheezes Cardiovascular exam: PRESENT: RRR, +S1, +S2 GI/Abdominal exam: PRESENT: distended, soft. ABSENT: rebound, rigid Extremities exam: ABSENT: joint swelling Neurological exam: PRESENT: altered Focused psych exam: PRESENT: restlessness Skin exam: PRESENT: normal color. ABSENT: mottled, pallor, urticaria, vesicles Results Laboratory Results: 10/19/17 05:41 10/19/17 05:41 10/19/17 10/19/17 05:41 05:41 WBC 8.7 RBC 3.02 L Hgb 10.3 L Hct 29.7 L MCV 98 H MCH 34.0 H MCHC 34.5 RDW 16.3 H Plt Count 216 Sodium 143.9 Potassium 3.8 Chloride 109 H Carbon Dioxide 17 L Anion Gap 18 BUN 3 L Creatinine 0.56 Est GFR ( Amer) > 60 Est GFR (Non-Af Amer) > 60 Glucose 128 H Calcium 8.5 Total Bilirubin 13.5 H AST 87 H ALT 22 Alkaline Phosphatase 299 H Total Protein 7.9 Albumin 3.4 L Impressions: Chest/Abdomen CTA 10/12/17 13:46 IMPRESSION: No CT angio evidence of acute pulmonary emboli or thoracic aortic or abdominal aortic dissection or aneurysm. Hepatomegaly with recannulized umbilical vein and splenomegaly from portal hypertension. No CT evidence of portal vein, superior mesenteric vein, or hepatic vein thrombosis. No CT evidence of bowel obstruction Inflammatory changes around the distal esophagus with distal esophageal varices and inflammation in the surrounding para esophageal fat Findings discussed with Dr. Pelayo in the emergency room Abdomen Ultrasound 10/16/17 00:00 IMPRESSION: Fatty enlarged liver. Recanalization of the umbilical veins. Thickened gallbladder wall of 6.7 mm. No identified stones. Splenomegaly. KUB X-Ray 10/18/17 00:00 IMPRESSION: NO RADIOGRAPHIC EVIDENCE FOR ACUTE ABDOMINAL DISEASE. Assessment & Plan - Diagnosis (1) Alcohol intoxication Qualifiers: Complication of substance-induced condition: with unspecified complication Qualified Code(s): F10.929 - Alcohol use, unspecified with intoxication, unspecified Is this a current diagnosis for this admission?: Yes Plan: continue current treatment for DT's check phosphorus level (2) Thickening of esophagus Is this a current diagnosis for this admission?: Yes Plan: likely due to esophageal varices, see previous note by Dr Shaver not a candidate for EGD since at high risk of bleeding correct INR , otherwise outpatient follow up with his primary GI (3) Alcoholic liver disease Is this a current diagnosis for this admission?: Yes Plan: has alcoholic hepatitis at this point (4) Elevated liver function tests Plan: will need to follow (5) Hepatitis C Qualifiers: Viral hepatitis chronicity: chronic Is this a current diagnosis for this admission?: Yes Plan: not a candidate for treatment - Time Time Spent: 50 to 70 Minutes
[2017-10-19] MEDS: CEFTRIAXONE 2 GM/D5W RTU 2 GM/50 ML RTUPB IV SCH (12:31)
[2017-10-19] MEDS: POTASSI CL 20 MEQ/1/2NS 1L 20 MEQ/1,000 ML RTUINJ IV PRN (14:50)
[2017-10-19] MEDS: PANTOPRAZOLE SODIUM 40 MG VIAL IV SCH (17:31)
--- NOTE | 2017-10-19 17:34 | PDOC PROGRESS REPORT ---
Subjective Progress Note for:: 10/19/17 Subjective:: The patient is an unfortunate 32-year-old male with a past medical history for alcohol abuse. He has untreated hepatitis C and currently has decompensated liver failure and acute alcoholic hepatitis. He has been started on steroids. His discussions have been had with [facility] about a potential transfer. They do not feel that they have anything to offer. Today when I saw the patient the first time he was quite confused and would not answer any questions. I went back to the room later on in his mother and sister were at the bedside. The patient's father just yesterday but he is unaware of this. This is the first time the mother is had a chance to come to the hospital. I spent quite some time discussing the plan of care with the patient's family at the bedside. They were asking if we could switch the patient to Librium from Ativan. I have found out that we do not carry Librium on formulary here in the family is agreeable to continuing with the lorazepam although I am going to try to cut his dose back of that. The patient when I went back to the room the second time was a little more alert. He is complaining of abdominal pain. In looking back in his records this is a chronic problem for the patient. He states his abdominal pain is in the epigastric area and left upper quadrant. Otherwise he indicates a willingness to go into an alcohol rehab program. The patient's mother states that he has been detoxed several times but in the gap between leaving the hospital and getting into a rehab he will start drinking again. She is hoping I can get in touch with the discharge planners and we could possibly try transferring the patient to rehab directly from the hospital. She also stated that his medical issues preclude him from going to several rehabs. I have told her I will get the discharge planners involved. The patient himself remains significantly confused and a good review of systems cannot be obtained Reason For Visit: ALCOHOL WITHDRAWAL Physical Exam Vital Signs: Temp Pulse Resp BP Pulse Ox 98.0 F 100 20 110/73 99 10/19/17 11:37 10/19/17 14:00 10/19/17 11:37 10/19/17 11:37 10/19/17 11:37 Intake & Output 10/18/17 10/19/17 10/20/17 06:59 06:59 06:59 Intake Total 2035 3790 0 Balance 2035 3790 0 Weight 96.2 kg 93.1 kg General appearance: PRESENT: mild distress, well-developed, well-nourished, other - He is significantly jaundiced Head exam: PRESENT: atraumatic, normocephalic Eye exam: PRESENT: scleral icterus Mouth exam: PRESENT: moist, tongue midline Respiratory exam: PRESENT: clear to auscultation jason. ABSENT: rales, rhonchi, wheezes Pulses: PRESENT: normal dorsalis pedis pul GI/Abdominal exam: PRESENT: ascites, other - Abdomen is quite distended and tender to palpation. Rectal exam: PRESENT: deferred Extremities exam: PRESENT: +1 edema Neurological exam: PRESENT: altered, awake, oriented to person, oriented to situation. ABSENT: oriented to time Psychiatric exam: PRESENT: agitated, anxious Skin exam: PRESENT: dry, intact, warm, other - Multiple tattoos. ABSENT: cyanosis, rash Results Laboratory Results: 10/19/17 05:41 10/19/17 05:41 10/19/17 10/19/17 05:41 05:41 WBC 8.7 RBC 3.02 L Hgb 10.3 L Hct 29.7 L MCV 98 H MCH 34.0 H MCHC 34.5 RDW 16.3 H Plt Count 216 Sodium 143.9 Potassium 3.8 Chloride 109 H Carbon Dioxide 17 L Anion Gap 18 BUN 3 L Creatinine 0.56 Est GFR ( Amer) > 60 Est GFR (Non-Af Amer) > 60 Glucose 128 H Calcium 8.5 Total Bilirubin 13.5 H AST 87 H ALT 22 Alkaline Phosphatase 299 H Total Protein 7.9 Albumin 3.4 L Impressions: Chest/Abdomen CTA 10/12/17 13:46 IMPRESSION: No CT angio evidence of acute pulmonary emboli or thoracic aortic or abdominal aortic dissection or aneurysm. Hepatomegaly with recannulized umbilical vein and splenomegaly from portal hypertension. No CT evidence of portal vein, superior mesenteric vein, or hepatic vein thrombosis. No CT evidence of bowel obstruction Inflammatory changes around the distal esophagus with distal esophageal varices and inflammation in the surrounding para esophageal fat Findings discussed with Dr. Pelayo in the emergency room Abdomen Ultrasound 10/16/17 00:00 IMPRESSION: Fatty enlarged liver. Recanalization of the umbilical veins. Thickened gallbladder wall of 6.7 mm. No identified stones. Splenomegaly. KUB X-Ray 10/18/17 00:00 IMPRESSION: NO RADIOGRAPHIC EVIDENCE FOR ACUTE ABDOMINAL DISEASE. Assessment & Plan - Diagnosis (1) Sepsis Is this a current diagnosis for this admission?: Yes Plan: Improving. He likely has spontaneous bacterial peritonitis. (2) Spontaneous bacterial peritonitis Is this a current diagnosis for this admission?: Yes Plan: The patient had an ultrasound and was unable to get a paracentesis the other day as there was not enough fluid. He is being empirically treated for this. His ascites seems to be reaccumulating and I have ordered a paracentesis with the appropriate studies as well as cytology for tomorrow. For now continue IV antibiotics. He currently is on IV ceftriaxone 2 g daily. (3) Acute alcoholic hepatitis Is this a current diagnosis for this admission?: Yes Plan: He is on 60 mg of prednisone daily. I did review the up-to-date literature. If this does not work he could be switched to pentoxifylline. (4) Acute hepatic encephalopathy Is this a current diagnosis for this admission?: Yes Plan: Continue lactulose. His ammonia level is still quite high. He will have another level drawn in the morning. (5) Alcohol dependence with withdrawal Qualifiers: Complication of substance-induced condition: uncomplicated Qualified Code(s ): F10.230 - Alcohol dependence with withdrawal, uncomplicated Is this a current diagnosis for this admission?: Yes Plan: We do not have Librium here in the hospital. I will decrease his scheduled Ativan dosing to 1 mg every 8 hours. He will still have IV Ativan available as well. He will continue clonidine. (6) Cirrhosis Is this a current diagnosis for this admission?: Yes Plan: Decompensated liver failure at this point. He needs to quit drinking. The patient himself states that he would be willing to go directly to an alcohol rehab program. I will get the discharge planners involved (7) Hepatitis C Qualifiers: Viral hepatitis chronicity: chronic Is this a current diagnosis for this admission?: Yes Plan: This is chronic and untreated. At this point he is not a candidate for treatment. (8) Thickening of esophagus Is this a current diagnosis for this admission?: Yes Plan: Likely due to portal hypertension and height esophageal varices. (9) Hypophosphatemia Is this a current diagnosis for this admission?: Yes Plan: He has not had a level drawn in several days. We will draw one in the morning. (10) Hypokalemia Is this a current diagnosis for this admission?: Yes Plan: Repleted and resolved. He will have a chemistry panel drawn in the morning. (11) Hypomagnesemia Is this a current diagnosis for this admission?: Yes Plan: Repleted and resolved. He has not had a level drawn today. We will check one in the morning. (12) Hypocalcemia Is this a current diagnosis for this admission?: Yes Plan: Corrected calcium is within normal limits (13) Coagulopathy Is this a current diagnosis for this admission?: Yes Plan: I will give him fresh frozen plasma prior to his paracentesis. I believe these orders are still in place. Unfortunately his coagulopathy seems to be worsening. (14) Anemia Is this a current diagnosis for this admission?: Yes Plan: This is a macrocytic anemia. Related to his underlying alcohol use. Continue folic acid and thiamine. (15) Full code status Is this a current diagnosis for this admission?: Yes - Time Time Spent with patient: 35 or more minutes - Inpatient Certification Medical Necessity: Other - Inpatient hospitalization remains necessary. This patient has worsening liver failure. He has acute alcoholic hepatitis. He is requiring parenteral benzodiazepines to control his alcohol withdrawal symptoms. His prognosis is guarded. Timing of disposition will be determined by his clinical course
[2017-10-19 17:57] LABS: PROTHROMBIN TIME 37.6 SEC (11.4-15.4)
[2017-10-19 17:58] LABS: PARTIAL THROMBOPLASTIN TIME 57.4 SEC (23.5-35.8)
[2017-10-19] MEDS ORDERED: LORAZEPAM 1 MG TABLET PO ONE (20:45)
[2017-10-20] MEDS: CLONIDINE HCL 0.1 MG TABLET PO SCH ×5 (00:55→23:29)
[2017-10-20] MEDS: LACTULOSE SYRUP 20 GM/30 ML UDCUP PO SCH ×5 (01:01→22:36)
[2017-10-20] MEDS: POTASSI CL 20 MEQ/1/2NS 1L 20 MEQ/1,000 ML RTUINJ IV PRN ×2 (03:04→15:56)
[2017-10-20] MEDS ORDERED: LORAZEPAM 1 MG TABLET PO SCH (06:00)
[2017-10-20 06:41] LABS: HEMATOCRIT 30.4 % (37.9-51.0); HEMOGLOBIN 10.3 g/dL (13.5-17.0); MEAN CORPUSCULAR HEMOGLOBIN 33.3 pg (27.0-33.4); MEAN CORPUSCULAR HGB CONC 33.8 g/dL (32.0-36.0); MEAN CORPUSCULAR VOLUME 98 fl (80-97); PLATELET COUNT 315 10^3/uL (150-450); RED BLOOD COUNT 3.09 10^6/uL (4.35-5.55); RED CELL DISTRIBUTION WIDTH 16.2 % (11.5-14.0); WHITE BLOOD COUNT 11.5 10^3/uL (4.0-10.5)
[2017-10-20 06:49] LABS: ALANINE AMINOTRANSFERASE 21 U/L (21-72); ALBUMIN 3.4 g/dL (3.5-5.0); ALKALINE PHOSPHATASE 299 U/L (38-126); ANION GAP 15 (5-19); ASPARTATE AMINO TRANSFERASE 132 U/L (17-59); BILIRUBIN,DIRECT 12.1 mg/dL (0.0-0.4); BILIRUBIN,TOTAL 13.3 mg/dL (0.2-1.3); BLOOD UREA NITROGEN 5 mg/dL (7-20); CALCIUM 8.6 mg/dL (8.4-10.2); CARBON DIOXIDE 16 mmol/L (22-30); CHLORIDE 113 mmol/L (98-107); GLUCOSE 110 mg/dL (75-110); POTASSIUM 3.8 mmol/L (3.6-5.0); SODIUM 144.2 mmol/L (137-145); TOTAL PROTEIN 7.6 g/dL (6.3-8.2)
[2017-10-20] MEDS: LORAZEPAM INJ 2 MG/1 ML VIAL IV PRN (08:37)
--- NOTE | 2017-10-20 10:10 | PDOC PROGRESS REPORT ---
Subjective Progress Note for:: 10/20/17 Subjective:: Patient is more awake today. He has a history of cirrhosis of the liver with accompanying complications including esophageal varices, ascites and looks like he is currently having now delirium tremens. An attempt had been made to transfer him to [facility] however it is felt that patient had no other acute indications for transfer and supportive measures is suggested. It appears paracentesis was also attempted a planned but there was no fluid for aspiration CT scan shows massive hepatomegaly as well as splenomegaly with varices in the left upper quadrant extending into paraesophageal region. The CT does not mention any findings of ascites although clinically patient does appear to have ascites. There was no mention of CBD stones and no other significant finding I am somewhat concerned about this patient given his significant findings with hallmarks of cirrhosis and possible peritonitis and acidosis although he remains clinically stable. Will continue to monitor closely. Another sono done today and this shows no ascites again so after [address] scan, 1 KUB will have to conclude patient doesn't have ascites. Reason For Visit: ALCOHOL WITHDRAWAL Physical Exam Vital Signs: Temp Pulse Resp BP Pulse Ox 98.0 F 111 H 20 104/68 99 10/20/17 00:18 10/20/17 06:58 10/20/17 00:18 10/20/17 00:18 10/20/17 00:18 Intake & Output 10/19/17 10/20/17 10/21/17 06:59 06:59 06:59 Intake Total 3790 1922 Output Total 150 Balance 3790 1772 Weight 93.1 kg 92.1 kg General appearance: PRESENT: no acute distress Head exam: PRESENT: atraumatic Eye exam: PRESENT: scleral icterus Ear exam: PRESENT: normal external ear exam Neck exam: ABSENT: carotid bruit, JVD, lymphadenopathy, thyromegaly Respiratory exam: PRESENT: clear to auscultation jason. ABSENT: rales, rhonchi, wheezes Cardiovascular exam: PRESENT: RRR. ABSENT: diastolic murmur, rubs, systolic murmur GI/Abdominal exam: PRESENT: distended, normal bowel sounds, tenderness Rectal exam: PRESENT: deferred Extremities exam: PRESENT: full ROM. ABSENT: calf tenderness, clubbing, pedal edema Neurological exam: PRESENT: alert, awake Results Laboratory Results: 10/20/17 06:05 10/20/17 06:05 10/19/17 10/20/17 10/20/17 17:25 06:05 06:05 WBC 11.5 H RBC 3.09 L Hgb 10.3 L Hct 30.4 L MCV 98 H MCH 33.3 MCHC 33.8 RDW 16.2 H Plt Count 315 Sodium 144.2 Potassium 3.8 Chloride 113 H Carbon Dioxide 16 L Anion Gap 15 BUN 5 L Creatinine 0.53 Est GFR ( Amer) > 60 Est GFR (Non-Af Amer) > 60 Glucose 110 Calcium 8.6 Phosphorus 2.0 L Magnesium 1.7 Total Bilirubin 13.3 H AST 132 H ALT 21 Alkaline Phosphatase 299 H Ammonia Total Protein 7.6 Albumin 3.4 L 10/20/17 06:05 WBC RBC Hgb Hct MCV MCH MCHC RDW Plt Count Sodium Potassium Chloride Carbon Dioxide Anion Gap BUN Creatinine Est GFR ( Amer) Est GFR (Non-Af Amer) Glucose Calcium Phosphorus Magnesium Total Bilirubin AST ALT Alkaline Phosphatase Ammonia 79.2 H Total Protein Albumin Impressions: Chest/Abdomen CTA 10/12/17 13:46 IMPRESSION: No CT angio evidence of acute pulmonary emboli or thoracic aortic or abdominal aortic dissection or aneurysm. Hepatomegaly with recannulized umbilical vein and splenomegaly from portal hypertension. No CT evidence of portal vein, superior mesenteric vein, or hepatic vein thrombosis. No CT evidence of bowel obstruction Inflammatory changes around the distal esophagus with distal esophageal varices and inflammation in the surrounding para esophageal fat Findings discussed with Dr. Pelayo in the emergency room Abdomen Ultrasound 10/16/17 00:00 IMPRESSION: Fatty enlarged liver. Recanalization of the umbilical veins. Thickened gallbladder wall of 6.7 mm. No identified stones. Splenomegaly. KUB X-Ray 10/18/17 00:00 IMPRESSION: NO RADIOGRAPHIC EVIDENCE FOR ACUTE ABDOMINAL DISEASE. Assessment & Plan - Time Time Spent with patient: 15-24 minutes Medications reviewed and adjusted accordingly: Yes Anticipated discharge: Home - Inpatient Certification Based on my medical assessment, after consideration of the patient's comorbidities, presenting symptoms, or acuity I expect that the services needed warrant INPATIENT care.: Yes Medical Necessity: Need for IV Antibiotics - Plan Summary Plan Summary: 1. Sepsis possibly spontaneous bacterial peritonitis underlying cirrhosis of the liver. S No evidence of ascites. He has been on antibiotics for an extended period. Will consider DC antibiotics. 2. Coagulopathy secondary to cirrhosis. He did receive fresh frozen plasma prior to paracentesis initially. Patient remains coagulopathic as obviously the FFP will not reverse the underlying etiology. INR at 3.6 today Will continue Vitamin K He remains thrombocytopenic likely from his liver disease. Platelet count slightly better today. DC Arixtra 3. Electrolyte imbalance including hypokalemia and hypomagnesemia and hypocalcemia and hypophosphatemia -continue to monitor and replete 4. Metabolic acidosis likely secondary to alcohol abuse -unchanged. Cont oral HCO 5. Hepatic cirrhosis due to alcohol abuse. Will increase dose of lactulose again as he is not having diarrhes and cont Xifaxan. 6. Esophageal thickening likely secondary to his underlying cirrhosis of the liver. Will continue with PPI and patient will need outpatient GI evaluation including EGD evaluation of varices if not possible inpatient 7. Chronic hepatitis C outpatient GI 8.Hepatitis C, untreated. 9. I discussed with the fleet sales manager on-call at [facility] 0n 09/18 and they have nothing else to offer. Will cont prednisone 60 mg daily for 7 days. He also suggested a trial of vitamin K which already given this morning and suggest discontinuing prophylactic anticoagulant as patient is already therapeutic. Because of ongoing alcohol abuse as well as his underlying hepatitis C alcoholic cirrhosis there really have nothing else to offer him and suggest continuing supportive care. 10. Prognosis is very poor
[2017-10-20] MEDS ORDERED: MORPHINE SULFATE 10 MG/ML INJ IV ONE (10:14)
[2017-10-20] MEDS: LIDOCAINE 5% (700 MG) TRANSDERMAL ADH..PATCH TP SCH (10:22)
[2017-10-20] MEDS: NICOTINE 21 MG/24 HR PATCH.TD24 TD SCH (10:23)
[2017-10-20] MEDS: RIFAXIMIN 550 MG TABLET PO SCH ×2 (10:24→17:38)
[2017-10-20] MEDS: THIAMINE HCL 100 MG TABLET PO SCH (10:25)
[2017-10-20] MEDS: FOLIC ACID 1 MG TABLET PO SCH (10:25)
[2017-10-20] MEDS: PREDNISONE 20 MG TABLET PO SCH (10:25)
--- NOTE | 2017-10-20 10:34 | RADIOLOGY REPORT (SQ) ---
EXAM DESCRIPTION: U/S ABDOMEN LIMITED W/O DOP COMPLETED DATE/TIME: 10/20/2017 9:13 am REASON FOR STUDY: acites, diagnostic and therapeutic COMPARISON: None. TECHNIQUE: Limited Static and real time thao scale imaging performed of the 4 abdominal quadrants an d the midline. LIMITATIONS: None. FINDINGS: ASCITES: None identified. OTHER: No other significant finding. IMPRESSION: NO EVIDENCE FOR ASCITES. TECHNICAL DOCUMENTATION: JOB ID: [id number] [employer]- All Rights Reserved Reading location - IP/workstation name: [email or web address]
[2017-10-20] MEDS: LORAZEPAM 1 MG TABLET PO SCH ×3 (12:29→23:29)
[2017-10-20] MEDS: PHYTONADIONE 5 MG TABLET PO SCH (12:29)
[2017-10-20] MEDS: CEFTRIAXONE 2 GM/D5W RTU 2 GM/50 ML RTUPB IV SCH (12:30)
[2017-10-20] MEDS: SODIUM BICARBONATE 650 MG TABLET PO SCH ×2 (14:23→22:36)
[2017-10-20] MEDS: PANTOPRAZOLE SODIUM 40 MG VIAL IV SCH (18:06)
[2017-10-20] MEDS ORDERED: LORAZEPAM INJ 2 MG/1 ML VIAL ONE (20:36)
[2017-10-20] MEDS ORDERED: LORAZEPAM INJ 2 MG/1 ML VIAL IV ONE (20:45)
[2017-10-21] MEDS: LACTULOSE SYRUP 20 GM/30 ML UDCUP PO SCH ×6 (01:30→22:16)
[2017-10-21] MEDS: LORAZEPAM INJ 2 MG/1 ML VIAL IV PRN ×5 (02:49→22:16)
[2017-10-21] MEDS: POTASSI CL 20 MEQ/1/2NS 1L 20 MEQ/1,000 ML RTUINJ IV PRN (05:20)
[2017-10-21] MEDS: SODIUM BICARBONATE 650 MG TABLET PO SCH ×3 (05:33→22:16)
[2017-10-21] MEDS: CLONIDINE HCL 0.1 MG TABLET PO SCH ×4 (05:33→23:05)
[2017-10-21] MEDS: LORAZEPAM 1 MG TABLET PO SCH ×2 (05:33→12:27)
[2017-10-21 06:14] LABS: HEMATOCRIT 29.6 % (37.9-51.0); HEMOGLOBIN 10.4 g/dL (13.5-17.0); MEAN CORPUSCULAR HEMOGLOBIN 34.4 pg (27.0-33.4); MEAN CORPUSCULAR HGB CONC 35.1 g/dL (32.0-36.0); MEAN CORPUSCULAR VOLUME 98 fl (80-97); PLATELET COUNT 352 10^3/uL (150-450); RED BLOOD COUNT 3.03 10^6/uL (4.35-5.55); RED CELL DISTRIBUTION WIDTH 16.5 % (11.5-14.0)
[2017-10-21 06:21] LABS: INTERNATIONAL RATION (INR) 3.11; PROTHROMBIN TIME 33.5 SEC (11.4-15.4)
[2017-10-21 07:09] LABS: ALANINE AMINOTRANSFERASE 30 U/L (21-72); ALBUMIN 3.1 g/dL (3.5-5.0); ALKALINE PHOSPHATASE 267 U/L (38-126); ANION GAP 18 (5-19); ASPARTATE AMINO TRANSFERASE 181 U/L (17-59); BILIRUBIN,TOTAL 13.4 mg/dL (0.2-1.3); BLOOD UREA NITROGEN 4 mg/dL (7-20); CALCIUM 8.6 mg/dL (8.4-10.2); CARBON DIOXIDE 14 mmol/L (22-30); CHLORIDE 114 mmol/L (98-107); GLUCOSE 115 mg/dL (75-110); POTASSIUM 3.7 mmol/L (3.6-5.0); SODIUM 146.4 mmol/L (137-145); TOTAL PROTEIN 7.6 g/dL (6.3-8.2)
[2017-10-21] MEDS: FOLIC ACID 1 MG TABLET PO SCH (09:19)
[2017-10-21] MEDS: RIFAXIMIN 550 MG TABLET PO SCH ×2 (09:20→17:42)
[2017-10-21] MEDS: THIAMINE HCL 100 MG TABLET PO SCH (09:21)
[2017-10-21] MEDS: PREDNISONE 20 MG TABLET PO SCH (09:22)
[2017-10-21] MEDS: NICOTINE 21 MG/24 HR PATCH.TD24 TD SCH (09:28)
[2017-10-21] MEDS ORDERED: HALOPERIDOL LACTATE INJ 5 MG/1 ML VIAL IM ONE (09:30)
[2017-10-21] MEDS: LIDOCAINE 5% (700 MG) TRANSDERMAL ADH..PATCH TP SCH (09:30)
[2017-10-21] MEDS: DEXTROSE 5%-WATER 1000 ML 1,000 ML with SODIUM BICARBONATE 100 MEQ IV PRN ×4 (09:37→22:14)
[2017-10-21] MEDS: PHYTONADIONE 5 MG TABLET PO SCH (12:27)
--- NOTE | 2017-10-21 14:25 | PDOC PROGRESS REPORT ---
Subjective Progress Note for:: 10/21/17 Subjective:: Patient became much more agitated during the night and tried to escape. he received Ativan to little avail. he needs restraints due to trying to flee and his unsteady gait abd being a danger to hinself ripping out IV lines abd danger to staff. He had semed to be improving so not sure what brought this on. CT scan shows massive hepatomegaly as well as splenomegaly with varices in the left upper quadrant extending into paraesophageal region. The CT does not mention any findings of ascites although clinically patient does appear to have ascites. There was no mention of CBD stones and no other significant finding I am somewhat concerned about this patient given his significant findings with hallmarks of cirrhosis and possible peritonitis and acidosis although he remains clinically stable. Will continue to monitor closely. He has had [address] scan, 1 KUB with no ascites. I have dc Ceftriaxone Reason For Visit: ALCOHOL WITHDRAWAL Physical Exam Vital Signs: Temp Pulse Resp BP Pulse Ox 99.2 F 110 H 16 124/76 94 10/21/17 10:59 10/21/17 10:59 10/21/17 10:59 10/21/17 10:59 10/21/17 10:59 Intake & Output 10/20/17 10/21/17 10/22/17 06:59 06:59 06:59 Intake Total 1922 3258 175 Output Total 150 2150 350 Balance 1772 1108 -175 Weight 92.1 kg 92 kg General appearance: PRESENT: no acute distress Head exam: PRESENT: atraumatic Eye exam: PRESENT: scleral icterus Respiratory exam: PRESENT: clear to auscultation jason. ABSENT: rales, rhonchi, wheezes Cardiovascular exam: PRESENT: RRR. ABSENT: diastolic murmur, rubs, systolic murmur Pulses: PRESENT: normal dorsalis pedis pul GI/Abdominal exam: PRESENT: normal bowel sounds, soft Rectal exam: PRESENT: deferred Musculoskeletal exam: PRESENT: other - unsteady gait Neurological exam: PRESENT: alert, awake, abnormal gait, other - confused, tremors. ABSENT: oriented to person, oriented to time, oriented to situation Skin exam: PRESENT: jaundice Results Laboratory Results: 10/21/17 05:32 10/21/17 05:32 10/21/17 10/21/17 05:32 05:32 WBC 11.0 H RBC 3.03 L Hgb 10.4 L Hct 29.6 L MCV 98 H MCH 34.4 H MCHC 35.1 RDW 16.5 H Plt Count 352 Sodium 146.4 H Potassium 3.7 Chloride 114 H Carbon Dioxide 14 L Anion Gap 18 BUN 4 L Creatinine 0.59 Est GFR ( Amer) > 60 Est GFR (Non-Af Amer) > 60 Glucose 115 H Calcium 8.6 Total Bilirubin 13.4 H AST 181 H ALT 30 Alkaline Phosphatase 267 H Total Protein 7.6 Albumin 3.1 L Impressions: Chest/Abdomen CTA 10/12/17 13:46 IMPRESSION: No CT angio evidence of acute pulmonary emboli or thoracic aortic or abdominal aortic dissection or aneurysm. Hepatomegaly with recannulized umbilical vein and splenomegaly from portal hypertension. No CT evidence of portal vein, superior mesenteric vein, or hepatic vein thrombosis. No CT evidence of bowel obstruction Inflammatory changes around the distal esophagus with distal esophageal varices and inflammation in the surrounding para esophageal fat Findings discussed with Dr. Pelayo in the emergency room KUB X-Ray 10/18/17 00:00 IMPRESSION: NO RADIOGRAPHIC EVIDENCE FOR ACUTE ABDOMINAL DISEASE. Abdomen Ultrasound 10/19/17 16:29 IMPRESSION: NO EVIDENCE FOR ASCITES. Assessment & Plan - Time Time Spent with patient: 25-34 minutes Medications reviewed and adjusted accordingly: Yes Anticipated discharge: Home - Inpatient Certification Based on my medical assessment, after consideration of the patient's comorbidities, presenting symptoms, or acuity I expect that the services needed warrant INPATIENT care.: Yes Medical Necessity: Significant Comorbidiites Make Outpatient Treatment Too Risky , Risk of Complication if Not Cared For in Hospital - Plan Summary Plan Summary: 1. Change in mental status with worsening agitation and confusion, paranoia, patient has been in hospital for 9 days so his last drink was at least 10days ago. Withdrawal period is over by now. Not sure what etiology of latest symptom. Will obtain T head when able, Check B12, Folate levels and Behavioral consult. Judicious use of Atvan and antipsychotics 2. Coagulopathy secondary to cirrhosis. d. INR at 3.1 today Will continue Vitamin K Platelet count has recovered 3. Electrolyte imbalance including hypokalemia and hypomagnesemia and hypocalcemia and hypophosphatemia -continue to monitor and replete 4. Metabolic acidosis likely secondary to alcohol abuse -unchanged to worse. Cont oral HCO and add IV HCO transiently 5. Hepatic cirrhosis due to alcohol abuse. Cont lactulose and cont Xifaxan. 6. Esophageal thickening likely secondary to his underlying cirrhosis of the liver. Will continue with PPI and patient will need outpatient GI evaluation including EGD evaluation of varices if not possible inpatient 7. Chronic hepatitis C outpatient GI 8.Hepatitis C, untreated. 9.Hepatic encephalopathy 10. Prognosis is very poor 11. Sepsis possibly spontaneous bacterial peritonitis underlying cirrhosis of the liver. Now off all antibiotics
--- NOTE | 2017-10-21 16:32 | PSYCHOLOGICAL NOTE ---
Psych Note - Psych Note Psych Note: Reason for consult: Bizarre behavior/altered mental status Contact permissions: Patient's mother Sepideh [phone] Patient is a 32 year old male. Patient reports he is in restraints because he was "acting like a jerk". Patient reports at this time he does not feel he is in the right state of mind. Patient reports that he has "too much ammonia" in his blood and other medical problems that made him have stomach pain. Patient reports that he also was having trouble with his blood sugar and states that he is still experiencing pain at this time. Patient reports he has a history of drinking daily consecutively the last 17 years. Patient reports on an average day he may drink 16-17 beers of 12% alcohol. Patient reports that he also smokes marijuana daily. Patient reports at this time he feels it is year 1987 and at first stated the president was Marissa but then stated the President was Gordon Silver. Patient reports that he wants help to feel better as he is not feeling physically well. Per patient's nurse: Patient's nurse reports patient was running down the hallway yesterday trying to leave. Patient's nurse reports patient needed soft restraints due to trying to leave and having the altered mental status. Patient's nurse reports patient' s mother Sepideh reported that patient's father on the fifth while the patient was in the hospital. Medication recommendation made by contracted [facility] provider Dr. Santhosh MD includes: 1. Discontinue Haldol *it is recommended to avoid all antipsychotic and benzodiazepines as they have paradoxical effects 2. Discontinue Ativan 3. Begin Depakote 500 mg twice a day 4. Begin BuSpar 10 mg twice a day Diagnosis: 303.90 (F10.20) alcohol use disorder; severe per history provided by patient 292.9 (F11.99) unspecified opiate related disorder per history ( per history) 292.9 (1 4.99) unspecified stimulant related disorder; cocaine ( per history) Impression/plan: Patient is psychiatrically cleared for discharge. Clinician observed patient has history of chronic alcohol use, and additional polysubstance abuse (this visit patient tested positive for opiates and marijuana). Clinician observed patient fell asleep multiple times during assessment and was unable to answer a majority of the assessment questions. Clinician observed patient was seen by psych multiple times, and historically did not follow through with recommendations for substance abuse intensive outpatient therapy( previously involved with [facility] as well). Clinician observed during his numerous visits he disclosed alcohol use and had levels in the upper 300s.Due to the history of chronic substance use clinician observed patient is experiencing residual effects that have altered his mental status. snf substance abuse can have long lasting effects. At this time mental health recommends utilizing Haldol and Ativan minimally as it is believed it is having a paradoxical effect as evidenced by his current presentation (behaviors running down the olivier, confusion, etc.).Additionally, medication recommendations were made. Please re-consult if needed.Attending hospitalist in agreement with plan and disposition. Consulted with Dr. Champion regarding the management and care of patient.
[2017-10-21] MEDS: DIVALPROEX SODIUM 250 MG TABLET.DR PO SCH (22:16)
[2017-10-21] MEDS: BUSPIRONE HCL 10 MG TABLET PO SCH (22:16)
[2017-10-22] MEDS: LORAZEPAM INJ 2 MG/1 ML VIAL IV PRN ×6 (00:30→22:40)
[2017-10-22] MEDS: LACTULOSE SYRUP 20 GM/30 ML UDCUP PO SCH ×6 (01:43→22:39)
[2017-10-22] MEDS: CLONIDINE HCL 0.1 MG TABLET PO SCH ×3 (05:59→17:40)
[2017-10-22] MEDS: SODIUM BICARBONATE 650 MG TABLET PO SCH ×3 (05:59→22:38)
[2017-10-22 06:08] LABS: HEMATOCRIT 27.4 % (37.9-51.0); HEMOGLOBIN 9.6 g/dL (13.5-17.0); MEAN CORPUSCULAR HEMOGLOBIN 33.9 pg (27.0-33.4); MEAN CORPUSCULAR VOLUME 97 fl (80-97); PLATELET COUNT 364 10^3/uL (150-450); RED BLOOD COUNT 2.83 10^6/uL (4.35-5.55); RED CELL DISTRIBUTION WIDTH 16.4 % (11.5-14.0); WHITE BLOOD COUNT 9.1 10^3/uL (4.0-10.5)
[2017-10-22 06:12] LABS: INTERNATIONAL RATION (INR) 3.22; PROTHROMBIN TIME 34.4 SEC (11.4-15.4)
[2017-10-22 06:29] LABS: ALANINE AMINOTRANSFERASE 30 U/L (21-72); ALBUMIN 3.2 g/dL (3.5-5.0); ALKALINE PHOSPHATASE 240 U/L (38-126); ANION GAP 15 (5-19); ASPARTATE AMINO TRANSFERASE 154 U/L (17-59); BILIRUBIN,DIRECT 11.1 mg/dL (0.0-0.4); BILIRUBIN,TOTAL 12.6 mg/dL (0.2-1.3); BLOOD UREA NITROGEN 3 mg/dL (7-20); CALCIUM 8.5 mg/dL (8.4-10.2); CARBON DIOXIDE 21 mmol/L (22-30); CHLORIDE 108 mmol/L (98-107); GLUCOSE 119 mg/dL (75-110); PHOSPHORUS 2.1 mg/dL (2.5-4.5); SODIUM 144.3 mmol/L (137-145); TOTAL PROTEIN 7.1 g/dL (6.3-8.2)
[2017-10-22 06:35] LABS: POTASSIUM 2.8 mmol/L (3.6-5.0)
[2017-10-22] MEDS ORDERED: POTASSIUM CHLORIDE 10 MEQ TABLET.SA PO ONE (07:22)
[2017-10-22] MEDS ORDERED: MAGNESIUM SULFATE 4 GM/100 ML RTUPB IV ONE (07:23)
--- NOTE | 2017-10-22 08:50 | EKG REPORT ---
SEVERITY:- ABNORMAL ECG - SINUS RHYTHM PROLONGED QT INTERVAL : Confirmed by: Rory Valadez MD 22-Oct-2017 08:49:51
[2017-10-22] MEDS: PHOSPHORUS #1 250 MG TABLET PO SCH ×2 (09:07→15:58)
[2017-10-22] MEDS: POTASSI CL 20 MEQ/50 ML RIDER 20 MEQ/50 ML RTUPB IV SCH ×2 (09:08→09:17)
[2017-10-22] MEDS: NICOTINE 21 MG/24 HR PATCH.TD24 TD SCH (09:26)
[2017-10-22] MEDS: DEXTROSE 5%-WATER 1000 ML 1,000 ML with SODIUM BICARBONATE 100 MEQ IV PRN ×4 (09:26→22:38)
[2017-10-22] MEDS: PREDNISONE 20 MG TABLET PO SCH (09:27)
[2017-10-22] MEDS: BUSPIRONE HCL 10 MG TABLET PO SCH ×2 (09:27→22:38)
[2017-10-22] MEDS: FOLIC ACID 1 MG TABLET PO SCH (09:28)
[2017-10-22] MEDS: THIAMINE HCL 100 MG TABLET PO SCH (09:28)
[2017-10-22] MEDS: DIVALPROEX SODIUM 250 MG TABLET.DR PO SCH ×2 (09:28→22:38)
[2017-10-22] MEDS: RIFAXIMIN 550 MG TABLET PO SCH (09:29)
[2017-10-22] MEDS: LIDOCAINE 5% (700 MG) TRANSDERMAL ADH..PATCH TP SCH (09:29)
[2017-10-22] MEDS ORDERED: MAGNESIUM SULFATE 4 GM/D5W 100 ML IV ONE (10:00)
[2017-10-22] MEDS: PHYTONADIONE 5 MG TABLET PO SCH (12:00)
[2017-10-22] MEDS: POTASSIUM CHLORIDE 10 MEQ TABLET.SA PO SCH ×2 (13:49→22:38)
--- NOTE | 2017-10-22 14:49 | PDOC PROGRESS REPORT ---
Subjective Progress Note for:: 10/22/17 Subjective:: Patient seems to be calmer today. He is able to converse with me and more oriented. He requested to talk to me privately and askd me to allow him to go home however I told him he was not strong enough to go home and his mom is unable to care for him. Unbeknown to patient his dad is being buried today. I called his mom again at patient request and left a message. She called me back and I relayed his message to her that he wants to come home but she insists she will not even talk to him for now. She also feels that he may have colette destabilized by their interaction [address] scan shows massive hepatomegaly as well as splenomegaly with varices in the left upper quadrant extending into paraesophageal region. The CT does not mention any findings of ascites although clinically patient does appear to have ascites. There was no mention of CBD stones and no other significant finding I am somewhat concerned about this patient given his significant findings with hallmarks of cirrhosis and possible peritonitis and acidosis although he remains clinically stable. Will continue to monitor closely. He has had [address] scan, 1 KUB with no ascites. He is off all antibiotics Reason For Visit: ALCOHOL WITHDRAWAL Physical Exam Vital Signs: Temp Pulse Resp BP Pulse Ox 98.3 F 113 H 16 115/68 100 10/22/17 12:01 10/22/17 07:29 10/22/17 12:01 10/22/17 12:01 10/22/17 07:29 Intake & Output 10/21/17 10/22/17 10/23/17 06:59 06:59 06:59 Intake Total 3258 2764 100 Output Total 2150 2050 Balance 1108 714 100 Weight 92 kg 89 kg General appearance: PRESENT: no acute distress, well-developed Head exam: PRESENT: atraumatic Eye exam: PRESENT: scleral icterus Ear exam: PRESENT: normal external ear exam Neck exam: ABSENT: carotid bruit, JVD, lymphadenopathy, thyromegaly Cardiovascular exam: PRESENT: RRR. ABSENT: diastolic murmur, rubs, systolic murmur GI/Abdominal exam: PRESENT: normal bowel sounds, soft. ABSENT: distended, guarding, mass, organolmegaly, rebound, tenderness Rectal exam: PRESENT: deferred Extremities exam: PRESENT: full ROM. ABSENT: calf tenderness, clubbing, pedal edema Musculoskeletal exam: PRESENT: ambulatory - but unsteady Neurological exam: PRESENT: alert, awake, oriented to person, oriented to place. ABSENT: oriented to situation, normal gait Psychiatric exam: PRESENT: anxious Results Laboratory Results: 10/22/17 05:50 10/22/17 05:50 10/22/17 10/22/17 10/22/17 05:50 05:50 05:50 WBC 9.1 RBC 2.83 L Hgb 9.6 L Hct 27.4 L MCV 97 MCH 33.9 H MCHC 35.0 RDW 16.4 H Plt Count 364 Sodium 144.3 Potassium 2.8 L* Chloride 108 H Carbon Dioxide 21 L Anion Gap 15 BUN 3 L Creatinine 0.54 Est GFR ( Amer) > 60 Est GFR (Non-Af Amer) > 60 Glucose 119 H Calcium 8.5 Phosphorus 2.1 L Magnesium 1.4 L Total Bilirubin 12.6 H AST 154 H ALT 30 Alkaline Phosphatase 240 H Ammonia 133.0 H Total Protein 7.1 Albumin 3.2 L Vitamin B12 338.0 Folate 13.70 Impressions: Chest/Abdomen CTA 10/12/17 13:46 IMPRESSION: No CT angio evidence of acute pulmonary emboli or thoracic aortic or abdominal aortic dissection or aneurysm. Hepatomegaly with recannulized umbilical vein and splenomegaly from portal hypertension. No CT evidence of portal vein, superior mesenteric vein, or hepatic vein thrombosis. No CT evidence of bowel obstruction Inflammatory changes around the distal esophagus with distal esophageal varices and inflammation in the surrounding para esophageal fat Findings discussed with Dr. Pelayo in the emergency room KUB X-Ray 10/18/17 00:00 IMPRESSION: NO RADIOGRAPHIC EVIDENCE FOR ACUTE ABDOMINAL DISEASE. Abdomen Ultrasound 10/19/17 16:29 IMPRESSION: NO EVIDENCE FOR ASCITES. Assessment & Plan - Time Time Spent with patient: 25-34 minutes - including time discussing with mother Medications reviewed and adjusted accordingly: Yes Anticipated discharge: Home with Homehealth - Inpatient Certification Based on my medical assessment, after consideration of the patient's comorbidities, presenting symptoms, or acuity I expect that the services needed warrant INPATIENT care.: Yes Medical Necessity: Need Close Monitoring Due to Risk of Patient Decompensation, Risk of Complication if Not Cared For in Hospital - Plan Summary Plan Summary: 1. Change in mental status - patient appears to be improving today 2. Coagulopathy secondary to cirrhosis. d. INR at 3.2 today Will continue Vitamin K Platelet count has recovered 3. Electrolyte imbalance including hypokalemia and hypomagnesemia and hypocalcemia and hypophosphatemia -continue to monitor and replete 4. Metabolic acidosis likely secondary to alcohol abuse -unchanged to worse. Cont oral HCO and add IV HCO prn 5. Hepatic cirrhosis due to alcohol abuse. Cont lactulose and cont Xifaxan. 6. Esophageal thickening likely secondary to his underlying cirrhosis of the liver. Will continue with PPI and patient will need outpatient GI evaluation including EGD evaluation of varices if not possible inpatient 7. Chronic hepatitis C outpatient GI 8.Hepatitis C, untreated. 9.Hepatic encephalopathy- Ammonia rising. He is now having frequent BM. he isclinically improvd. Will keep dose same 10. Prognosis is very poor 11. Sepsis possibly spontaneous bacterial peritonitis underlying cirrhosis of the liver. Now off all antibiotics
[2017-10-23] MEDS: CLONIDINE HCL 0.1 MG TABLET PO SCH ×5 (00:18→23:33)
[2017-10-23] MEDS: LACTULOSE SYRUP 20 GM/30 ML UDCUP PO SCH ×6 (01:50→22:47)
[2017-10-23 06:16] LABS: HEMATOCRIT 27.2 % (37.9-51.0); HEMOGLOBIN 9.4 g/dL (13.5-17.0); MEAN CORPUSCULAR HEMOGLOBIN 34.1 pg (27.0-33.4); MEAN CORPUSCULAR HGB CONC 34.7 g/dL (32.0-36.0); MEAN CORPUSCULAR VOLUME 98 fl (80-97); PLATELET COUNT 342 10^3/uL (150-450); RED BLOOD COUNT 2.77 10^6/uL (4.35-5.55); RED CELL DISTRIBUTION WIDTH 16.8 % (11.5-14.0); WHITE BLOOD COUNT 8.8 10^3/uL (4.0-10.5)
[2017-10-23 06:44] LABS: ALANINE AMINOTRANSFERASE 27 U/L (21-72); ALBUMIN 3.1 g/dL (3.5-5.0); ALKALINE PHOSPHATASE 206 U/L (38-126); ANION GAP 18 (5-19); ASPARTATE AMINO TRANSFERASE 140 U/L (17-59); BILIRUBIN,DIRECT 11.7 mg/dL (0.0-0.4); BILIRUBIN,TOTAL 13.4 mg/dL (0.2-1.3); BLOOD UREA NITROGEN 5 mg/dL (7-20); CALCIUM 8.4 mg/dL (8.4-10.2); CARBON DIOXIDE 24 mmol/L (22-30); CHLORIDE 104 mmol/L (98-107); GLUCOSE 114 mg/dL (75-110); SODIUM 146.4 mmol/L (137-145); TOTAL PROTEIN 6.8 g/dL (6.3-8.2)
[2017-10-23 06:55] LABS: POTASSIUM 2.7 mmol/L (3.6-5.0)
[2017-10-23] MEDS: DEXTROSE 5%-WATER 1000 ML 1,000 ML with SODIUM BICARBONATE 100 MEQ IV PRN ×4 (08:23→20:05)
[2017-10-23] MEDS: LIDOCAINE 5% (700 MG) TRANSDERMAL ADH..PATCH TP SCH (08:24)
[2017-10-23] MEDS: NICOTINE 21 MG/24 HR PATCH.TD24 TD SCH (08:24)
[2017-10-23] MEDS: POTASSIUM CHLORIDE 10 MEQ TABLET.SA PO SCH ×3 (08:25→20:05)
[2017-10-23] MEDS: PREDNISONE 20 MG TABLET PO SCH (08:26)
[2017-10-23] MEDS: THIAMINE HCL 100 MG TABLET PO SCH (08:26)
[2017-10-23] MEDS: BUSPIRONE HCL 10 MG TABLET PO SCH ×2 (08:26→22:47)
[2017-10-23] MEDS: FOLIC ACID 1 MG TABLET PO SCH (08:26)
[2017-10-23] MEDS: PHOSPHORUS #1 250 MG TABLET PO SCH ×2 (08:27→18:28)
[2017-10-23] MEDS: SODIUM BICARBONATE 650 MG TABLET PO SCH ×2 (08:27→22:46)
[2017-10-23] MEDS: DIVALPROEX SODIUM 250 MG TABLET.DR PO SCH ×2 (08:28→22:47)
[2017-10-23] MEDS: PHYTONADIONE 5 MG TABLET PO SCH (11:29)
[2017-10-23] MEDS: RIFAXIMIN 550 MG TABLET PO SCH ×2 (11:30→18:31)
[2017-10-23] MEDS: LORAZEPAM INJ 2 MG/1 ML VIAL IV PRN ×2 (12:33→18:32)
--- NOTE | 2017-10-23 14:16 | RADIOLOGY REPORT (SQ) ---
EXAM DESCRIPTION: CT HEAD WITHOUT COMPLETED DATE/TIME: 10/23/2017 1:58 pm REASON FOR STUDY: Confusion, Encephalopathy COMPARISON: 01/13/2016. TECHNIQUE: Axial images acquired through the brain without intravenous contrast. Images reviewed wi th bone, brain and subdural windows. Images stored on PACS. All CT scanners at this facility use dose modulation, iterative reconstruction, and/or weight based d osing when appropriate to reduce radiation dose to as low as reasonably achievable (ALARA). [facility]: Dose Right [facility]: CareDose [facility]: Dose Right [facility]: Teradose 4D [facility]: ybuy RADIATION DOSE: 963.9mGy. LIMITATIONS: None. FINDINGS: VENTRICLES: Normal size and contour. CEREBRUM: No masses. No hemorrhage. No midline shift. No evidence for acute infarction. Normal gra y/white matter differentiation. No areas of low density in the white matter. CEREBELLUM: No masses. No hemorrhage. No alteration of density. No evidence for acute infarction. EXTRAAXIAL SPACES: No fluid collections. No masses. ORBITS AND GLOBE: No intra- or extraconal masses. Normal contour of globe without masses. CALVARIUM: No fracture. PARANASAL SINUSES: No fluid or mucosal thickening. SOFT TISSUES: No mass or hematoma. OTHER: No other significant finding. IMPRESSION: NORMAL BRAIN CT WITHOUT CONTRAST. EVIDENCE OF ACUTE STROKE: NO. COMMENT: Quality ID # [id number]: Final reports with documentation of one or more dose reduction techniques (e.g., Automated exposure control, adjustment of the mA and/or kV according to patient size, use of iterative reconstruction technique) TECHNICAL DOCUMENTATION: JOB ID: [id number] SC-69 2010 [employer]- All Rights Reserved Reading location - IP/workstation name: [email or web address]
--- NOTE | 2017-10-23 15:51 | PDOC PROGRESS REPORT ---
Subjective Progress Note for:: 10/23/17 Subjective:: Patient appears to be much less agitated today. He has had restraints of intermittently with no incidents. CT scan shows massive hepatomegaly as well as splenomegaly with varices in the left upper quadrant extending into CT scan of the brain is negative paraesophageal region. The CT does not mention any findings of ascites although clinically patient does appear to have ascites. There was no mention of CBD stones and no other significant finding I am somewhat concerned about this patient given his significant findings with hallmarks of cirrhosis and possible peritonitis and acidosis although he remains clinically stable. Will continue to monitor closely. He has had [address] scan, 1 KUB with no ascites. He is off all antibiotics Reason For Visit: ALCOHOL WITHDRAWAL Physical Exam Vital Signs: Temp Pulse Resp BP Pulse Ox 98.0 F 74 16 124/67 97 10/23/17 11:35 10/23/17 14:00 10/23/17 11:35 10/23/17 11:35 10/23/17 11:35 Intake & Output 10/22/17 10/23/17 10/24/17 06:59 06:59 06:59 Intake Total 2764 1994 480 Output Total 2050 1125 Balance 714 869 480 Weight 89 kg 88.5 kg General appearance: PRESENT: no acute distress Head exam: PRESENT: atraumatic Eye exam: PRESENT: scleral icterus Ear exam: PRESENT: normal external ear exam Neck exam: ABSENT: carotid bruit, JVD, lymphadenopathy, thyromegaly GI/Abdominal exam: PRESENT: normal bowel sounds, soft. ABSENT: distended, guarding, mass, organolmegaly, rebound, tenderness Rectal exam: PRESENT: deferred Extremities exam: PRESENT: full ROM. ABSENT: calf tenderness, clubbing, pedal edema Musculoskeletal exam: PRESENT: other - Unsteady gait Neurological exam: PRESENT: alert, awake. ABSENT: oriented to place, oriented to time, oriented to situation Focused psych exam: PRESENT: restlessness Results Laboratory Results: 10/23/17 05:55 10/23/17 05:55 10/23/17 10/23/17 10/23/17 05:55 05:55 05:55 WBC 8.8 RBC 2.77 L Hgb 9.4 L Hct 27.2 L MCV 98 H MCH 34.1 H MCHC 34.7 RDW 16.8 H Plt Count 342 Sodium 146.4 H Potassium 2.7 L* Chloride 104 Carbon Dioxide 24 Anion Gap 18 BUN 5 L Creatinine 0.53 Est GFR ( Amer) > 60 Est GFR (Non-Af Amer) > 60 Glucose 114 H Calcium 8.4 Magnesium 1.8 Total Bilirubin 13.4 H AST 140 H ALT 27 Alkaline Phosphatase 206 H Ammonia 139.4 H Total Protein 6.8 Albumin 3.1 L Impressions: Chest/Abdomen CTA 10/12/17 13:46 IMPRESSION: No CT angio evidence of acute pulmonary emboli or thoracic aortic or abdominal aortic dissection or aneurysm. Hepatomegaly with recannulized umbilical vein and splenomegaly from portal hypertension. No CT evidence of portal vein, superior mesenteric vein, or hepatic vein thrombosis. No CT evidence of bowel obstruction Inflammatory changes around the distal esophagus with distal esophageal varices and inflammation in the surrounding para esophageal fat Findings discussed with Dr. Pelayo in the emergency room KUB X-Ray 10/18/17 00:00 IMPRESSION: NO RADIOGRAPHIC EVIDENCE FOR ACUTE ABDOMINAL DISEASE. Abdomen Ultrasound 10/19/17 16:29 IMPRESSION: NO EVIDENCE FOR ASCITES. Head CT 10/22/17 00:00 IMPRESSION: NORMAL BRAIN CT WITHOUT CONTRAST. EVIDENCE OF ACUTE STROKE: NO. Assessment & Plan - Time Time Spent with patient: 15-24 minutes Medications reviewed and adjusted accordingly: Yes Anticipated discharge: Home with Homehealth - Inpatient Certification Based on my medical assessment, after consideration of the patient's comorbidities, presenting symptoms, or acuity I expect that the services needed warrant INPATIENT care.: Yes Medical Necessity: Significant Comorbidiites Make Outpatient Treatment Too Risky , Need Close Monitoring Due to Risk of Patient Decompensation, Risk of Complication if Not Cared For in Hospital - Plan Summary Plan Summary: 1. Change in mental status - patient continues to improve although his ammonia level noted to be still pretty elevated. He is on lactulose every 4 hours and is having multiple bowel movement as per staff. CT scan of the head is negative 2. Coagulopathy secondary to cirrhosis. d. INR at 3.2 Will continue Vitamin K Platelet count has recovered 3. Electrolyte imbalance including hypokalemia and hypomagnesemia and hypocalcemia and hypophosphatemia -continue to monitor and replete His persistent hypokalemia may be secondary to diarrhea. We will continue to replace 4. Metabolic acidosis likely secondary to alcohol abuse -acidosis is corrected on oral and intravenous bicarb. I have reduced the dose of his oral bicarb and will suggest to discontinue this as appropriate 5. Hepatic cirrhosis due to alcohol abuse. Cont lactulose and cont Xifaxan. Patient is currently end-stage liver disease. He has been rejected twice at [facility] during this hospitalization for transfer however if patient still makes no significant improvement will consider calling other [facility] hospitals for a gastroenterology input 6. Esophageal thickening likely secondary to his underlying cirrhosis of the liver. Will continue with PPI and patient will need outpatient GI evaluation including EGD evaluation of varices if not possible inpatient 7. Chronic hepatitis C outpatient GI 8.Hepatitis C, untreated. 9.Hepatic encephalopathy- Ammonia 139. He is clinically improved. Although his liver functions seem to be stagnant to slightly worse patient actually appears to be somewhat clinically improved. will keep lactulose dose same and continue Xifaxan 10. Prognosis is very poor 11. Sepsis possibly spontaneous bacterial peritonitis underlying cirrhosis of the liver. Now off all antibiotics
[2017-10-24] MEDS: LORAZEPAM INJ 2 MG/1 ML VIAL IV PRN ×4 (00:26→14:13)
[2017-10-24] MEDS: POTASSIUM CHLORIDE 10 MEQ TABLET.SA PO SCH ×5 (02:55→21:23)
[2017-10-24] MEDS: LACTULOSE SYRUP 20 GM/30 ML UDCUP PO SCH ×6 (02:55→21:22)
[2017-10-24] MEDS: CLONIDINE HCL 0.1 MG TABLET PO SCH ×3 (05:57→17:34)
[2017-10-24 06:29] LABS: INTERNATIONAL RATION (INR) 1.28
[2017-10-24 06:30] LABS: PROTHROMBIN TIME 16.6 SEC (11.4-15.4)
[2017-10-24 06:37] LABS: ALANINE AMINOTRANSFERASE 32 U/L (21-72); ALBUMIN 3.2 g/dL (3.5-5.0); ALKALINE PHOSPHATASE 208 U/L (38-126); ASPARTATE AMINO TRANSFERASE 143 U/L (17-59); BILIRUBIN,DIRECT 12.6 mg/dL (0.0-0.4); BILIRUBIN,TOTAL 14.3 mg/dL (0.2-1.3); BLOOD UREA NITROGEN 6 mg/dL (7-20); CALCIUM 8.7 mg/dL (8.4-10.2); CARBON DIOXIDE 24 mmol/L (22-30); CHLORIDE 103 mmol/L (98-107); GLUCOSE 107 mg/dL (75-110); PHOSPHORUS 2.2 mg/dL (2.5-4.5); POTASSIUM 3.1 mmol/L (3.6-5.0); TOTAL PROTEIN 7.1 g/dL (6.3-8.2)
[2017-10-24 06:45] LABS: ANION GAP 21 (5-19)
[2017-10-24] MEDS: DEXTROSE 5%-WATER 1000 ML 1,000 ML with SODIUM BICARBONATE 100 MEQ IV PRN ×2 (08:23)
[2017-10-24] MEDS: PHOSPHORUS #1 250 MG TABLET PO SCH ×2 (08:23→17:34)
[2017-10-24] MEDS: SODIUM BICARBONATE 650 MG TABLET PO SCH ×2 (10:16→21:23)
[2017-10-24] MEDS: DIVALPROEX SODIUM 250 MG TABLET.DR PO SCH ×2 (10:16→21:22)
[2017-10-24] MEDS: PREDNISONE 20 MG TABLET PO SCH (10:16)
[2017-10-24] MEDS: RIFAXIMIN 550 MG TABLET PO SCH ×2 (10:17→17:34)
[2017-10-24] MEDS: LIDOCAINE 5% (700 MG) TRANSDERMAL ADH..PATCH TP SCH (10:17)
[2017-10-24] MEDS: FOLIC ACID 1 MG TABLET PO SCH (10:17)
[2017-10-24] MEDS: NICOTINE 21 MG/24 HR PATCH.TD24 TD SCH (10:17)
[2017-10-24] MEDS: BUSPIRONE HCL 10 MG TABLET PO SCH ×2 (10:17→21:23)
[2017-10-24] MEDS: THIAMINE HCL 100 MG TABLET PO SCH (10:17)
[2017-10-24] MEDS ORDERED: NALBUPHINE HCL INJ 10 MG/1 ML AMPULE INJ ONE (15:00)
--- NOTE | 2017-10-24 15:48 | PDOC PROGRESS REPORT ---
Subjective Progress Note for:: 10/24/17 Subjective:: Patient is seen in bed. He is awake and alert. He is complaining of back pain. He is asking for Dilaudid. He denies any chest pain, shortness of breath or dyspnea. He is extremely jaundiced. He denies any nausea or vomiting. He denies any other significant pain. Remaining review of systems are negative. Reason For Visit: ALCOHOL WITHDRAWAL Physical Exam Vital Signs: Temp Pulse Resp BP Pulse Ox 98.1 F 96 18 136/83 H 98 10/24/17 02:57 10/24/17 14:00 10/24/17 02:57 10/24/17 02:57 10/24/17 02:57 Intake & Output 10/23/17 10/24/17 10/25/17 06:59 06:59 06:59 Intake Total 1994 3737 320 Output Total 1125 Balance 869 3737 320 Weight 88.5 kg 89 kg General appearance: PRESENT: no acute distress - Extremely jaundiced, well- developed, well-nourished Head exam: PRESENT: atraumatic, normocephalic Eye exam: PRESENT: PERRLA, scleral icterus Ear exam: PRESENT: normal external ear exam Mouth exam: PRESENT: moist, tongue midline Teeth exam: PRESENT: poor dentation Neck exam: ABSENT: carotid bruit, JVD, lymphadenopathy, thyromegaly Respiratory exam: PRESENT: clear to auscultation jason, symmetrical, unlabored Cardiovascular exam: PRESENT: RRR. ABSENT: diastolic murmur, rubs, systolic murmur Pulses: PRESENT: normal dorsalis pedis pul Vascular exam: PRESENT: normal capillary refill GI/Abdominal exam: PRESENT: normal bowel sounds, soft Rectal exam: PRESENT: deferred Extremities exam: PRESENT: full ROM. ABSENT: calf tenderness, clubbing, pedal edema Musculoskeletal exam: PRESENT: ambulatory, full ROM, normal inspection Neurological exam: PRESENT: alert, awake, oriented to person, oriented to place , oriented to time, oriented to situation, CN II-XII grossly intact. ABSENT: motor sensory deficit Psychiatric exam: PRESENT: anxious Skin exam: PRESENT: dry, intact, warm. ABSENT: cyanosis, rash Results Laboratory Results: 10/23/17 05:55 10/24/17 05:44 10/24/17 10/24/17 05:44 05:44 Sodium 148.0 H Potassium 3.1 L Chloride 103 Carbon Dioxide 24 Anion Gap 21 H BUN 6 L Creatinine 0.55 Est GFR ( Amer) > 60 Est GFR (Non-Af Amer) > 60 Glucose 107 Calcium 8.7 Phosphorus 2.2 L Total Bilirubin 14.3 H AST 143 H ALT 32 Alkaline Phosphatase 208 H Ammonia 89.7 H Total Protein 7.1 Albumin 3.2 L Impressions: Chest/Abdomen CTA 10/12/17 13:46 IMPRESSION: No CT angio evidence of acute pulmonary emboli or thoracic aortic or abdominal aortic dissection or aneurysm. Hepatomegaly with recannulized umbilical vein and splenomegaly from portal hypertension. No CT evidence of portal vein, superior mesenteric vein, or hepatic vein thrombosis. No CT evidence of bowel obstruction Inflammatory changes around the distal esophagus with distal esophageal varices and inflammation in the surrounding para esophageal fat Findings discussed with Dr. Pelayo in the emergency room KUB X-Ray 10/18/17 00:00 IMPRESSION: NO RADIOGRAPHIC EVIDENCE FOR ACUTE ABDOMINAL DISEASE. Abdomen Ultrasound 10/19/17 16:29 IMPRESSION: NO EVIDENCE FOR ASCITES. Head CT 10/22/17 00:00 IMPRESSION: NORMAL BRAIN CT WITHOUT CONTRAST. EVIDENCE OF ACUTE STROKE: NO. Assessment & Plan - Diagnosis (1) Acute hepatic encephalopathy Is this a current diagnosis for this admission?: Yes Plan: He is much more alert now that his ammonia level starting to trend down. Continue lactulose ammonia is 88 (2) Anemia Is this a current diagnosis for this admission?: Yes Plan: Presently stable (3) Cirrhosis Is this a current diagnosis for this admission?: Yes Plan: Continue current medications and prednisone. Direct bili and T bili are elevating still. Transaminases are slightly down. (4) Coagulopathy Is this a current diagnosis for this admission?: Yes Plan: INR is 1.26 will DC vitamin K (5) Hyperammonemia Is this a current diagnosis for this admission?: Yes Plan: Improved from yesterday down to 88 from 138 (6) Hypocalcemia Is this a current diagnosis for this admission?: Yes (7) Hypokalemia Is this a current diagnosis for this admission?: Yes Plan: Replete and monitor (8) Hypophosphatemia Is this a current diagnosis for this admission?: Yes Plan: Replete and monitor (9) Alcohol dependence with withdrawal Qualifiers: Complication of substance-induced condition: uncomplicated Qualified Code(s ): F10.230 - Alcohol dependence with withdrawal, uncomplicated Is this a current diagnosis for this admission?: Yes Plan: Continue current medications he has gone through DTs (10) Elevated liver function tests Is this a current diagnosis for this admission?: Yes (11) Essential hypertension Is this a current diagnosis for this admission?: Yes Plan: Is normotensive at the present time (12) Gout Qualifiers: Gout site: elbow Gout etiology: unspecified cause Laterality: left Is this a current diagnosis for this admission?: Yes (13) Hepatitis C Qualifiers: Viral hepatitis chronicity: chronic Is this a current diagnosis for this admission?: Yes (14) Hyperlipidemia Qualifiers: Hyperlipidemia type: unspecified Qualified Code(s): E78.5 - Hyperlipidemia , unspecified Is this a current diagnosis for this admission?: Yes Plan: We have held statin due to his liver enzymes being elevated (15) Hypomagnesemia Is this a current diagnosis for this admission?: Yes Plan: Replete and monitor (16) Polysubstance abuse Is this a current diagnosis for this admission?: Yes Plan: Counseled (17) Swollen R knee Is this a current diagnosis for this admission?: Yes - Time Time Spent with patient: 25-34 minutes Total Critical Time (Minutes): 15 Medications reviewed and adjusted accordingly: Yes
[2017-10-25] MEDS: CLONIDINE HCL 0.1 MG TABLET PO SCH ×4 (01:13→17:33)
[2017-10-25] MEDS: LACTULOSE SYRUP 20 GM/30 ML UDCUP PO SCH ×6 (01:13→21:19)
[2017-10-25] MEDS: PHOSPHORUS #1 250 MG TABLET PO SCH ×2 (08:02→15:29)
[2017-10-25] MEDS: THIAMINE HCL 100 MG TABLET PO SCH (10:06)
[2017-10-25] MEDS: SODIUM BICARBONATE 650 MG TABLET PO SCH ×2 (10:06→21:19)
[2017-10-25] MEDS: BUSPIRONE HCL 10 MG TABLET PO SCH ×2 (10:06→21:19)
[2017-10-25] MEDS: RIFAXIMIN 550 MG TABLET PO SCH ×2 (10:07→17:33)
[2017-10-25] MEDS: DIVALPROEX SODIUM 250 MG TABLET.DR PO SCH ×2 (10:07→21:19)
[2017-10-25] MEDS: NICOTINE 21 MG/24 HR PATCH.TD24 TD SCH (10:07)
[2017-10-25] MEDS: PREDNISONE 20 MG TABLET PO SCH (10:07)
[2017-10-25] MEDS: LIDOCAINE 5% (700 MG) TRANSDERMAL ADH..PATCH TP SCH (10:07)
[2017-10-25] MEDS: FOLIC ACID 1 MG TABLET PO SCH (10:08)
[2017-10-25] MEDS ORDERED: NALBUPHINE HCL INJ 10 MG/1 ML AMPULE IM ONE (12:30)
--- NOTE | 2017-10-25 15:28 | PDOC PROGRESS REPORT ---
Subjective Progress Note for:: 10/25/17 Subjective:: Patient is seen in bed. He is awake and alert. He is complaining of back pain. He is asking for Dilaudid. He denies any chest pain, shortness of breath or dyspnea. He is extremely jaundiced. He denies any nausea or vomiting. He denies any other significant pain. Remaining review of systems are negative. Reason For Visit: ALCOHOL WITHDRAWAL Physical Exam Vital Signs: Temp Pulse Resp BP Pulse Ox 98.4 F 96 12 123/71 100 10/25/17 12:02 10/25/17 12:02 10/25/17 12:02 10/25/17 12:02 10/25/17 12:02 Intake & Output 10/24/17 10/25/17 10/26/17 06:59 06:59 06:59 Intake Total 3737 590 355 Output Total 3 Balance 3737 587 355 Weight 89 kg General appearance: PRESENT: no acute distress, disheveled - extremely jaundiced , well-developed, well-nourished, other Head exam: PRESENT: atraumatic, normocephalic Eye exam: PRESENT: EOMI, PERRLA, scleral icterus Ear exam: PRESENT: normal external ear exam Mouth exam: PRESENT: moist, tongue midline Neck exam: ABSENT: carotid bruit, JVD, lymphadenopathy, thyromegaly Respiratory exam: PRESENT: clear to auscultation jason. ABSENT: rales, rhonchi, wheezes Cardiovascular exam: PRESENT: bradycardia Pulses: PRESENT: normal dorsalis pedis pul Vascular exam: PRESENT: normal capillary refill GI/Abdominal exam: PRESENT: normal bowel sounds, soft. ABSENT: distended, guarding, mass, organolmegaly, rebound, tenderness Rectal exam: PRESENT: deferred Extremities exam: PRESENT: full ROM. ABSENT: calf tenderness, clubbing, pedal edema Musculoskeletal exam: PRESENT: ambulatory, full ROM, tenderness - lower lumbar spine Neurological exam: PRESENT: alert, awake, oriented to person, oriented to place , oriented to time, oriented to situation, CN II-XII grossly intact. ABSENT: motor sensory deficit Psychiatric exam: PRESENT: anxious, appropriate affect, normal mood. ABSENT: homicidal ideation, suicidal ideation Skin exam: PRESENT: dry, intact, jaundice, warm. ABSENT: cyanosis, rash Results Laboratory Results: 10/23/17 05:55 10/24/17 05:44 Impressions: Chest/Abdomen CTA 10/12/17 13:46 IMPRESSION: No CT angio evidence of acute pulmonary emboli or thoracic aortic or abdominal aortic dissection or aneurysm. Hepatomegaly with recannulized umbilical vein and splenomegaly from portal hypertension. No CT evidence of portal vein, superior mesenteric vein, or hepatic vein thrombosis. No CT evidence of bowel obstruction Inflammatory changes around the distal esophagus with distal esophageal varices and inflammation in the surrounding para esophageal fat Findings discussed with Dr. Pelayo in the emergency room KUB X-Ray 10/18/17 00:00 IMPRESSION: NO RADIOGRAPHIC EVIDENCE FOR ACUTE ABDOMINAL DISEASE. Abdomen Ultrasound 10/19/17 16:29 IMPRESSION: NO EVIDENCE FOR ASCITES. Head CT 10/22/17 00:00 IMPRESSION: NORMAL BRAIN CT WITHOUT CONTRAST. EVIDENCE OF ACUTE STROKE: NO. Assessment & Plan - Diagnosis (1) Acute hepatic encephalopathy Is this a current diagnosis for this admission?: Yes Plan: He is much more alert now that his ammonia level starting to trend down. Continue lactulose ammonia was 88 yesterday, will recheck in the am. He is still to ill to go to an inpatient treatment center. This was discussed with him. (2) Anemia Is this a current diagnosis for this admission?: Yes Plan: Presently stable (3) Cirrhosis Is this a current diagnosis for this admission?: Yes Plan: Continue current medications and prednisone. Direct bili and T bili are elevating still. Transaminases are slightly down. (4) Coagulopathy Is this a current diagnosis for this admission?: Yes Plan: INR is 1.26 will DC vitamin K (5) Hyperammonemia Is this a current diagnosis for this admission?: Yes Plan: Improved from yesterday down to 88 from 138 (6) Hypocalcemia Is this a current diagnosis for this admission?: Yes Plan: Replete and monitor as needed (7) Hypokalemia Is this a current diagnosis for this admission?: Yes Plan: Replete and monitor (8) Hypophosphatemia Is this a current diagnosis for this admission?: Yes Plan: Replete and monitor (9) Alcohol dependence with withdrawal Qualifiers: Complication of substance-induced condition: uncomplicated Qualified Code(s ): F10.230 - Alcohol dependence with withdrawal, uncomplicated Is this a current diagnosis for this admission?: Yes Plan: Continue current medications he has gone through DTs (10) Elevated liver function tests Is this a current diagnosis for this admission?: Yes (11) Essential hypertension Is this a current diagnosis for this admission?: Yes Plan: Is normotensive at the present time (12) Gout Qualifiers: Gout site: elbow Gout etiology: unspecified cause Laterality: left Is this a current diagnosis for this admission?: Yes (13) Hepatitis C Qualifiers: Viral hepatitis chronicity: chronic Is this a current diagnosis for this admission?: Yes Plan: Not a candidate for treatment (14) Hyperlipidemia Qualifiers: Hyperlipidemia type: unspecified Qualified Code(s): E78.5 - Hyperlipidemia , unspecified Is this a current diagnosis for this admission?: Yes Plan: We have held statin due to his liver enzymes being elevated (15) Hypomagnesemia Is this a current diagnosis for this admission?: Yes Plan: Replete and monitor (16) Polysubstance abuse Is this a current diagnosis for this admission?: Yes Plan: Counseled (17) Swollen R knee Is this a current diagnosis for this admission?: Yes - Time Time Spent with patient: 25-34 minutes Total Critical Time (Minutes): 15 Medications reviewed and adjusted accordingly: Yes - Inpatient Certification Medical Necessity: Need Close Monitoring Due to Risk of Patient Decompensation, Need for Neurological Checks, Risk of Complication if Not Cared For in Hospital
[2017-10-26] MEDS: LACTULOSE SYRUP 20 GM/30 ML UDCUP PO SCH ×6 (01:40→21:08)
[2017-10-26] MEDS: CLONIDINE HCL 0.1 MG TABLET PO SCH ×4 (01:41→17:49)
[2017-10-26 06:06] LABS: ABSOLUTE LYMPHOCYTES (AUTO) 1.9 10^3/uL (0.5-4.7); ABSOLUTE MONOCYTES (AUTO) 0.5 10^3/uL (0.1-1.4); ABSOLUTE NEUT (AUTO) 10.9 10^3/uL (1.7-8.2); EOSINOPHILS % (AUTO) 0.1 % (0-6); HEMATOCRIT 30.8 % (37.9-51.0); HEMOGLOBIN 10.5 g/dL (13.5-17.0); LYMPHOCYTES % (AUTO) 14.4 % (13-45); MEAN CORPUSCULAR HEMOGLOBIN 33.3 pg (27.0-33.4); MEAN CORPUSCULAR HGB CONC 33.9 g/dL (32.0-36.0); MEAN CORPUSCULAR VOLUME 98 fl (80-97); MONOCYTES % (AUTO) 3.7 % (3-13); PLATELET COUNT 340 10^3/uL (150-450); RED BLOOD COUNT 3.14 10^6/uL (4.35-5.55); RED CELL DISTRIBUTION WIDTH 17.4 % (11.5-14.0); SEGMENTED NEUTROPHILS % (AUTO) 81.8 % (42-78); TOTAL CELLS COUNTED % (AUTO) 100 %; WHITE BLOOD COUNT 13.3 10^3/uL (4.0-10.5)
[2017-10-26 06:07] LABS: INTERNATIONAL RATION (INR) 1.16; PROTHROMBIN TIME 15.4 SEC (11.4-15.4)
[2017-10-26 06:17] LABS: ALANINE AMINOTRANSFERASE 36 U/L (21-72); ALBUMIN 3.9 g/dL (3.5-5.0); ALKALINE PHOSPHATASE 212 U/L (38-126); ANION GAP 17 (5-19); ASPARTATE AMINO TRANSFERASE 175 U/L (17-59); BILIRUBIN,DIRECT 13.9 mg/dL (0.0-0.4); BILIRUBIN,TOTAL 15.8 mg/dL (0.2-1.3); BLOOD UREA NITROGEN 12 mg/dL (7-20); CALCIUM 9.4 mg/dL (8.4-10.2); CARBON DIOXIDE 26 mmol/L (22-30); CHLORIDE 103 mmol/L (98-107); GLUCOSE 100 mg/dL (75-110); POTASSIUM 3.8 mmol/L (3.6-5.0); SODIUM 145.6 mmol/L (137-145); TOTAL PROTEIN 8.1 g/dL (6.3-8.2)
[2017-10-26] MEDS: PHOSPHORUS #1 250 MG TABLET PO SCH ×2 (08:45→17:45)
[2017-10-26] MEDS ORDERED: MAGNESIUM SULFATE 4 GM/100 ML RTUPB IV ONE (11:00)
[2017-10-26] MEDS: NICOTINE 21 MG/24 HR PATCH.TD24 TD SCH (11:02)
[2017-10-26] MEDS: PREDNISONE 20 MG TABLET PO SCH (11:02)
[2017-10-26] MEDS: DIVALPROEX SODIUM 250 MG TABLET.DR PO SCH ×2 (11:02→21:08)
[2017-10-26] MEDS: LIDOCAINE 5% (700 MG) TRANSDERMAL ADH..PATCH TP SCH (11:02)
[2017-10-26] MEDS: BUSPIRONE HCL 10 MG TABLET PO SCH ×2 (11:02→21:08)
[2017-10-26] MEDS: FOLIC ACID 1 MG TABLET PO SCH (11:02)
[2017-10-26] MEDS: THIAMINE HCL 100 MG TABLET PO SCH (11:02)
[2017-10-26] MEDS: SODIUM BICARBONATE 650 MG TABLET PO SCH ×2 (11:02→21:08)
[2017-10-26] MEDS: RIFAXIMIN 550 MG TABLET PO SCH ×2 (11:03→17:48)
--- NOTE | 2017-10-26 15:56 | PDOC PROGRESS REPORT ---
Subjective Progress Note for:: 10/26/17 Subjective:: The patient is a 32 yr old male with alcohol dependence, cirrhosis due to alcohol. He presented to the hospital on 10/12/17 with alcohol intoxication and abdominal pain. No complaints at present. Reason For Visit: ALCOHOL WITHDRAWAL Physical Exam Vital Signs: Temp Pulse Resp BP Pulse Ox 98.5 F 81 18 128/75 H 99 10/26/17 07:56 10/26/17 07:56 10/26/17 07:56 10/26/17 07:56 10/26/17 07:56 Intake & Output 10/25/17 10/26/17 10/27/17 06:59 06:59 06:59 Intake Total 590 1695 Output Total 3 Balance 587 1695 Weight 89 kg General appearance: PRESENT: no acute distress Head exam: PRESENT: normocephalic Eye exam: PRESENT: scleral icterus Mouth exam: PRESENT: moist Neck exam: ABSENT: tracheal deviation Respiratory exam: PRESENT: clear to auscultation jason, symmetrical, unlabored Cardiovascular exam: PRESENT: RRR GI/Abdominal exam: PRESENT: normal bowel sounds, soft Rectal exam: PRESENT: deferred Gentrourinary exam: ABSENT: indwelling catheter Extremities exam: ABSENT: pedal edema Neurological exam: PRESENT: awake Psychiatric exam: PRESENT: appropriate affect Results Laboratory Results: 10/26/17 05:48 10/26/17 05:48 10/26/17 10/26/17 10/26/17 05:48 05:48 05:48 WBC 13.3 H RBC 3.14 L Hgb 10.5 L Hct 30.8 L MCV 98 H MCH 33.3 MCHC 33.9 RDW 17.4 H Plt Count 340 Seg Neutrophils % 81.8 H Lymphocytes % 14.4 Monocytes % 3.7 Eosinophils % 0.1 Basophils % 0.0 Absolute Neutrophils 10.9 H Absolute Lymphocytes 1.9 Absolute Monocytes 0.5 Absolute Eosinophils 0.0 Absolute Basophils 0.0 Sodium 145.6 H Potassium 3.8 Chloride 103 Carbon Dioxide 26 Anion Gap 17 BUN 12 Creatinine 0.63 Est GFR ( Amer) > 60 Est GFR (Non-Af Amer) > 60 Glucose 100 Calcium 9.4 Magnesium 1.4 L Total Bilirubin 15.8 H AST 175 H ALT 36 Alkaline Phosphatase 212 H Ammonia 37.7 H Total Protein 8.1 Albumin 3.9 Impressions: Chest/Abdomen CTA 10/12/17 13:46 IMPRESSION: No CT angio evidence of acute pulmonary emboli or thoracic aortic or abdominal aortic dissection or aneurysm. Hepatomegaly with recannulized umbilical vein and splenomegaly from portal hypertension. No CT evidence of portal vein, superior mesenteric vein, or hepatic vein thrombosis. No CT evidence of bowel obstruction Inflammatory changes around the distal esophagus with distal esophageal varices and inflammation in the surrounding para esophageal fat Findings discussed with Dr. Pelayo in the emergency room KUB X-Ray 10/18/17 00:00 IMPRESSION: NO RADIOGRAPHIC EVIDENCE FOR ACUTE ABDOMINAL DISEASE. Abdomen Ultrasound 10/19/17 16:29 IMPRESSION: NO EVIDENCE FOR ASCITES. Head CT 10/22/17 00:00 IMPRESSION: NORMAL BRAIN CT WITHOUT CONTRAST. EVIDENCE OF ACUTE STROKE: NO. Assessment & Plan - Diagnosis (1) Acute hepatic encephalopathy Is this a current diagnosis for this admission?: Yes Plan: Improving with lactulose and Xifaxan (2) Alcohol intoxication Qualifiers: Complication of substance-induced condition: with unspecified complication Qualified Code(s): F10.929 - Alcohol use, unspecified with intoxication, unspecified Is this a current diagnosis for this admission?: Yes Plan: Resolved (3) Cirrhosis Is this a current diagnosis for this admission?: Yes Plan: Continue current meds (4) Coagulopathy Is this a current diagnosis for this admission?: Yes Plan: Due to cirrhosis (5) Hyperammonemia Is this a current diagnosis for this admission?: Yes Plan: Improving. Continue Lactulose (6) Hypokalemia Is this a current diagnosis for this admission?: Yes (7) Thickening of esophagus Is this a current diagnosis for this admission?: Yes Plan: Plan for outpatient endoscopy (8) Alcohol dependence with withdrawal Qualifiers: Complication of substance-induced condition: uncomplicated Qualified Code(s ): F10.230 - Alcohol dependence with withdrawal, uncomplicated Is this a current diagnosis for this admission?: Yes (9) Gout Qualifiers: Gout site: elbow Gout etiology: unspecified cause Laterality: left Is this a current diagnosis for this admission?: Yes Plan: On prednisone (10) Hepatitis C Qualifiers: Viral hepatitis chronicity: chronic Is this a current diagnosis for this admission?: Yes Plan: Outpatient follow up (11) Hyperlipidemia Qualifiers: Hyperlipidemia type: unspecified Qualified Code(s): E78.5 - Hyperlipidemia , unspecified Is this a current diagnosis for this admission?: Yes (12) Hypomagnesemia Is this a current diagnosis for this admission?: Yes Plan: Replete
[2017-10-27] MEDS: CLONIDINE HCL 0.1 MG TABLET PO SCH ×4 (01:11→17:14)
[2017-10-27] MEDS: LACTULOSE SYRUP 20 GM/30 ML UDCUP PO SCH ×6 (01:11→21:07)
[2017-10-27] MEDS: PHOSPHORUS #1 250 MG TABLET PO SCH ×2 (07:53→17:13)
[2017-10-27] MEDS: LIDOCAINE 5% (700 MG) TRANSDERMAL ADH..PATCH TP SCH (09:13)
[2017-10-27] MEDS: RIFAXIMIN 550 MG TABLET PO SCH ×2 (09:14→17:14)
[2017-10-27] MEDS: PREDNISONE 20 MG TABLET PO SCH (09:14)
[2017-10-27] MEDS: NICOTINE 21 MG/24 HR PATCH.TD24 TD SCH (09:14)
[2017-10-27] MEDS: FOLIC ACID 1 MG TABLET PO SCH (09:15)
[2017-10-27] MEDS: SODIUM BICARBONATE 650 MG TABLET PO SCH ×2 (09:15→21:07)
[2017-10-27] MEDS: BUSPIRONE HCL 10 MG TABLET PO SCH ×2 (09:15→21:07)
[2017-10-27] MEDS: DIVALPROEX SODIUM 250 MG TABLET.DR PO SCH ×2 (09:15→21:07)
[2017-10-27] MEDS: MAGNESIUM OXIDE 400 MG TABLET PO SCH (09:16)
[2017-10-27] MEDS: THIAMINE HCL 100 MG TABLET PO SCH (09:16)
[2017-10-27] MEDS: GABAPENTIN 100 MG CAPSULE PO SCH ×2 (13:03→21:07)
--- NOTE | 2017-10-27 16:06 | PDOC PROGRESS REPORT ---
Subjective Progress Note for:: 10/27/17 Subjective:: The patient is a 32 yr old male with alcohol dependence, cirrhosis due to alcohol. He presented to the hospital on 10/12/17 with alcohol intoxication and abdominal pain. Slowly improving encephalopathy although hyperbilirubinemia worsening. C/o lower extremity pain- Gabapentin ordered. Reason For Visit: ALCOHOL WITHDRAWAL Physical Exam Vital Signs: Temp Pulse Resp BP Pulse Ox 98.6 F 81 16 123/71 98 10/27/17 11:11 10/27/17 11:11 10/27/17 11:11 10/27/17 11:11 10/27/17 11:11 Intake & Output 10/26/17 10/27/17 10/28/17 06:59 06:59 06:59 Intake Total 1695 1602 236 Balance 1695 1602 236 Weight 89 kg 89.2 kg General appearance: PRESENT: no acute distress Head exam: PRESENT: normocephalic Eye exam: PRESENT: scleral icterus Ear exam: PRESENT: normal external ear exam Mouth exam: PRESENT: moist Respiratory exam: PRESENT: symmetrical, unlabored Cardiovascular exam: PRESENT: RRR GI/Abdominal exam: PRESENT: normal bowel sounds, soft Rectal exam: PRESENT: deferred Extremities exam: ABSENT: pedal edema Neurological exam: PRESENT: alert, awake, oriented to person, oriented to place , oriented to time Psychiatric exam: PRESENT: appropriate affect Skin exam: PRESENT: jaundice Results Laboratory Results: 10/26/17 05:48 10/26/17 05:48 Impressions: Chest/Abdomen CTA 10/12/17 13:46 IMPRESSION: No CT angio evidence of acute pulmonary emboli or thoracic aortic or abdominal aortic dissection or aneurysm. Hepatomegaly with recannulized umbilical vein and splenomegaly from portal hypertension. No CT evidence of portal vein, superior mesenteric vein, or hepatic vein thrombosis. No CT evidence of bowel obstruction Inflammatory changes around the distal esophagus with distal esophageal varices and inflammation in the surrounding para esophageal fat Findings discussed with Dr. Pelayo in the emergency room [facility] X-Ray 10/18/17 00:00 IMPRESSION: NO RADIOGRAPHIC EVIDENCE FOR ACUTE ABDOMINAL DISEASE. Abdomen Ultrasound 10/19/17 16:29 IMPRESSION: NO EVIDENCE FOR ASCITES. Head CT 10/22/17 00:00 IMPRESSION: NORMAL BRAIN CT WITHOUT CONTRAST. EVIDENCE OF ACUTE STROKE: NO. Assessment & Plan - Diagnosis (1) Acute hepatic encephalopathy Is this a current diagnosis for this admission?: Yes Plan: Improving with lactulose and Xifaxan (2) Alcohol intoxication Qualifiers: Complication of substance-induced condition: with unspecified complication Qualified Code(s): F10.929 - Alcohol use, unspecified with intoxication, unspecified Is this a current diagnosis for this admission?: Yes Plan: Resolved (3) Cirrhosis Is this a current diagnosis for this admission?: Yes Plan: Continue current meds (4) Coagulopathy Is this a current diagnosis for this admission?: Yes Plan: Due to cirrhosis (5) Hyperammonemia Is this a current diagnosis for this admission?: Yes Plan: Improving. Continue Lactulose (6) Hypokalemia Is this a current diagnosis for this admission?: Yes Plan: Replaced (7) Thickening of esophagus Is this a current diagnosis for this admission?: Yes Plan: Plan for outpatient endoscopy (8) Alcohol dependence with withdrawal Qualifiers: Complication of substance-induced condition: uncomplicated Qualified Code(s ): F10.230 - Alcohol dependence with withdrawal, uncomplicated Is this a current diagnosis for this admission?: Yes (9) Gout Qualifiers: Gout site: elbow Gout etiology: unspecified cause Laterality: left Is this a current diagnosis for this admission?: Yes Plan: On prednisone (10) Hepatitis C Qualifiers: Viral hepatitis chronicity: chronic Is this a current diagnosis for this admission?: Yes Plan: Outpatient follow up (11) Hyperlipidemia Qualifiers: Hyperlipidemia type: unspecified Qualified Code(s): E78.5 - Hyperlipidemia , unspecified Is this a current diagnosis for this admission?: Yes (12) Hypomagnesemia Is this a current diagnosis for this admission?: Yes Plan: Repleted - Time Time Spent with patient: 25-34 minutes
[2017-10-27] MEDS: PHARMACY COMMUNICATION ORDER MC SCH (22:11)
[2017-10-28] MEDS: CLONIDINE HCL 0.1 MG TABLET PO SCH ×4 (01:09→17:22)
[2017-10-28] MEDS: LACTULOSE SYRUP 20 GM/30 ML UDCUP PO SCH ×5 (01:09→17:23)
[2017-10-28] MEDS: GABAPENTIN 100 MG CAPSULE PO SCH ×2 (05:44→13:20)
[2017-10-28 06:33] LABS: ANION GAP 18 (5-19); BLOOD UREA NITROGEN 16 mg/dL (7-20); CALCIUM 9.5 mg/dL (8.4-10.2); CARBON DIOXIDE 24 mmol/L (22-30); CHLORIDE 102 mmol/L (98-107); GLUCOSE 93 mg/dL (75-110); PHOSPHORUS 4.4 mg/dL (2.5-4.5); POTASSIUM 3.6 mmol/L (3.6-5.0); SODIUM 144.2 mmol/L (137-145)
[2017-10-28] MEDS: PHOSPHORUS #1 250 MG TABLET PO SCH ×2 (07:25→15:14)
[2017-10-28] MEDS: DIVALPROEX SODIUM 250 MG TABLET.DR PO SCH (09:32)
[2017-10-28] MEDS: MAGNESIUM OXIDE 400 MG TABLET PO SCH (09:33)
[2017-10-28] MEDS: THIAMINE HCL 100 MG TABLET PO SCH (09:33)
[2017-10-28] MEDS: FOLIC ACID 1 MG TABLET PO SCH (09:33)
[2017-10-28] MEDS: RIFAXIMIN 550 MG TABLET PO SCH ×2 (09:33→17:23)
[2017-10-28] MEDS: SODIUM BICARBONATE 650 MG TABLET PO SCH (09:33)
[2017-10-28] MEDS: LIDOCAINE 5% (700 MG) TRANSDERMAL ADH..PATCH TP SCH (09:34)
[2017-10-28] MEDS: BUSPIRONE HCL 10 MG TABLET PO SCH (09:34)
[2017-10-28] MEDS: NICOTINE 21 MG/24 HR PATCH.TD24 TD SCH (09:34)
[2017-10-28] MEDS: PREDNISONE 20 MG TABLET PO SCH (09:34)
[2017-10-28] MEDS ORDERED: LORAZEPAM INJ 2 MG/1 ML VIAL IV PRN (15:26)
[2017-10-28] MEDS ORDERED: LORAZEPAM INJ 2 MG/1 ML VIAL ONE ×2 (19:00→22:21)
--- NOTE | 2017-10-28 19:06 | PDOC PROGRESS REPORT ---
Subjective Progress Note for:: 10/28/17 Subjective:: Patient is anxious about his illness, he is slightly confused but able to converse with me and with his family. No chest pain or difficulty breathing. Diffuse abdominal pain. No bleeding. No nausea or vomiting. He was feeling paranoid last night. He does feel like his head is more clear however. No fevers or chills. Making good urine. Reason For Visit: ALCOHOL WITHDRAWAL Physical Exam Vital Signs: Temp Pulse Resp BP Pulse Ox 98.8 F 106 H 18 144/84 H 96 10/28/17 15:38 10/28/17 15:38 10/28/17 15:38 10/28/17 15:38 10/28/17 15:38 Intake & Output 10/27/17 10/28/17 10/29/17 06:59 06:59 06:59 Intake Total 1602 1624 537 Balance 1602 1624 537 Weight 89.2 kg 80.5 kg General appearance: PRESENT: cooperative, disheveled, mild distress Head exam: PRESENT: atraumatic, normocephalic Eye exam: PRESENT: EOMI, scleral icterus Ear exam: PRESENT: normal external ear exam Mouth exam: PRESENT: neck supple Respiratory exam: PRESENT: clear to auscultation jason. ABSENT: rales, rhonchi, unlabored, wheezes Cardiovascular exam: PRESENT: RRR. ABSENT: systolic murmur GI/Abdominal exam: PRESENT: ascites, distended, normal bowel sounds, soft, tenderness. ABSENT: guarding Rectal exam: PRESENT: deferred Extremities exam: PRESENT: pedal edema Neurological exam: PRESENT: alert, awake, oriented to person, oriented to place. ABSENT: oriented to situation Psychiatric exam: PRESENT: anxious Focused psych exam: PRESENT: restlessness Skin exam: PRESENT: dry, jaundice, warm Results Laboratory Results: 10/26/17 05:48 10/28/17 05:42 10/28/17 10/28/17 05:42 05:42 Sodium 144.2 Potassium 3.6 Chloride 102 Carbon Dioxide 24 Anion Gap 18 BUN 16 Creatinine 0.63 Est GFR ( Amer) > 60 Est GFR (Non-Af Amer) > 60 Glucose 93 Calcium 9.5 Phosphorus 4.4 Magnesium 1.6 Ammonia 41.9 H Impressions: Chest/Abdomen CTA 10/12/17 13:46 IMPRESSION: No CT angio evidence of acute pulmonary emboli or thoracic aortic or abdominal aortic dissection or aneurysm. Hepatomegaly with recannulized umbilical vein and splenomegaly from portal hypertension. No CT evidence of portal vein, superior mesenteric vein, or hepatic vein thrombosis. No CT evidence of bowel obstruction Inflammatory changes around the distal esophagus with distal esophageal varices and inflammation in the surrounding para esophageal fat Findings discussed with Dr. Pelayo in the emergency room [facility] X-Ray 10/18/17 00:00 IMPRESSION: NO RADIOGRAPHIC EVIDENCE FOR ACUTE ABDOMINAL DISEASE. Abdomen Ultrasound 10/19/17 16:29 IMPRESSION: NO EVIDENCE FOR ASCITES. Head CT 10/22/17 00:00 IMPRESSION: NORMAL BRAIN CT WITHOUT CONTRAST. EVIDENCE OF ACUTE STROKE: NO. Assessment & Plan - Diagnosis (1) Agitation Is this a current diagnosis for this admission?: Yes Plan: Related to liver disease. Patient is also on prednisone and may be having a reaction to that. Patient would be on the very far end of alcohol withdrawal but that is still within the possibilities. I started Ativan 2 mg IV every 4 hours as needed. Hold prednisone dose tonight. (2) Acute alcoholic hepatitis Is this a current diagnosis for this admission?: Yes Plan: Bilirubin and transaminases are still trending up. I had a long discussion with the patient and his family about the severity of his illness. Will recheck labs in the morning. Renal function is still good. Patient has been started on steroids. (3) Acute hepatic encephalopathy Is this a current diagnosis for this admission?: Yes Plan: Continue lactulose and rifaximin. Encephalopathy has been improving. (4) Cirrhosis Qualifiers: Hepatic cirrhosis type: alcoholic cirrhosis Is this a current diagnosis for this admission?: Yes Plan: Patient also has hepatitis C. he will need regular care with hepatology upon discharge if he if he recovers to discharge from this hospitalization.. - Time Time Spent with patient: 35 or more minutes Medications reviewed and adjusted accordingly: Yes - Inpatient Certification Based on my medical assessment, after consideration of the patient's comorbidities, presenting symptoms, or acuity I expect that the services needed warrant INPATIENT care.: Yes I certify that my determination is in accordance with my understanding of Medicare's requirements for reasonable and necessary INPATIENT services [42 CFR 412.3e].: Yes Medical Necessity: Need Close Monitoring Due to Risk of Patient Decompensation, Risk of Complication if Not Cared For in Hospital
[2017-10-28] MEDS: ONDANSETRON 4 MG TAB.RAPDIS PO PRN (20:50)
[2017-10-28] MEDS: LORAZEPAM INJ 2 MG/1 ML VIAL IV PRN (22:02)
[2017-10-28] MEDS ORDERED: HALOPERIDOL LACTATE INJ 5 MG/1 ML VIAL ONE (22:07)
[2017-10-28] MEDS ORDERED: FLUMAZENIL INJ 0.5 MG/5 ML VIAL ONE (22:31)
[2017-10-28] MEDS ORDERED: HALOPERIDOL LACTATE INJ 5 MG/1 ML VIAL IV PRN (22:48)
[2017-10-28] MEDS ORDERED: LORAZEPAM INJ 2 MG/1 ML VIAL IV ONE (23:00)
[2017-10-28] MEDS ORDERED: HALOPERIDOL LACTATE INJ 5 MG/1 ML VIAL IV ONE (23:00)
[2017-10-29] MEDS: CLONIDINE HCL 0.1 MG TABLET PO SCH ×5 (05:03→23:34)
[2017-10-29] MEDS: GABAPENTIN 100 MG CAPSULE PO SCH ×4 (05:03→22:14)
[2017-10-29] MEDS: BUSPIRONE HCL 10 MG TABLET PO SCH ×3 (05:03→22:14)
[2017-10-29] MEDS: PHARMACY COMMUNICATION ORDER MC SCH (05:03)
[2017-10-29] MEDS: DIAZEPAM 5 MG TABLET PO SCH ×5 (05:03→23:32)
[2017-10-29] MEDS: LACTULOSE SYRUP 20 GM/30 ML UDCUP PO SCH ×6 (05:03→22:13)
[2017-10-29] MEDS: SODIUM BICARBONATE 650 MG TABLET PO SCH ×3 (05:03→22:15)
[2017-10-29] MEDS: DIVALPROEX SODIUM 250 MG TABLET.DR PO SCH ×3 (05:03→22:13)
[2017-10-29 06:43] LABS: HEMATOCRIT 27.8 % (37.9-51.0); HEMOGLOBIN 9.6 g/dL (13.5-17.0); MEAN CORPUSCULAR HEMOGLOBIN 34.2 pg (27.0-33.4); MEAN CORPUSCULAR HGB CONC 34.4 g/dL (32.0-36.0); MEAN CORPUSCULAR VOLUME 99 fl (80-97); PLATELET COUNT 207 10^3/uL (150-450); RED BLOOD COUNT 2.79 10^6/uL (4.35-5.55); RED CELL DISTRIBUTION WIDTH 18.1 % (11.5-14.0); WHITE BLOOD COUNT 10.8 10^3/uL (4.0-10.5)
[2017-10-29 06:58] LABS: ALANINE AMINOTRANSFERASE 52 U/L (21-72); ALBUMIN 3.5 g/dL (3.5-5.0); ALKALINE PHOSPHATASE 162 U/L (38-126); ANION GAP 16 (5-19); ASPARTATE AMINO TRANSFERASE 162 U/L (17-59); BILIRUBIN,DIRECT 9.1 mg/dL (0.0-0.4); BILIRUBIN,TOTAL 10.7 mg/dL (0.2-1.3); BLOOD UREA NITROGEN 16 mg/dL (7-20); CALCIUM 9.4 mg/dL (8.4-10.2); CARBON DIOXIDE 18 mmol/L (22-30); CHLORIDE 108 mmol/L (98-107); GLUCOSE 95 mg/dL (75-110); POTASSIUM 3.7 mmol/L (3.6-5.0); SODIUM 141.8 mmol/L (137-145)
[2017-10-29] MEDS: PHOSPHORUS #1 250 MG TABLET PO SCH ×2 (07:55→15:20)
[2017-10-29] MEDS: RIFAXIMIN 550 MG TABLET PO SCH ×2 (09:33→17:34)
[2017-10-29] MEDS: THIAMINE HCL 100 MG TABLET PO SCH (09:36)
[2017-10-29] MEDS: FOLIC ACID 1 MG TABLET PO SCH (09:36)
[2017-10-29] MEDS: NICOTINE 21 MG/24 HR PATCH.TD24 TD SCH (09:36)
[2017-10-29] MEDS: LIDOCAINE 5% (700 MG) TRANSDERMAL ADH..PATCH TP SCH (09:36)
[2017-10-29] MEDS: MAGNESIUM OXIDE 400 MG TABLET PO SCH (09:36)
[2017-10-29] MEDS: PREDNISONE 20 MG TABLET PO SCH (09:37)
[2017-10-29] MEDS: LORAZEPAM INJ 2 MG/1 ML VIAL IV PRN (11:53)
--- NOTE | 2017-10-29 14:34 | PDOC PROGRESS REPORT ---
Subjective Progress Note for:: 10/29/17 Subjective:: pt is encephalopathic today, per RN and overnight MD was very agitated and combative last night, appeared to be EtOH withdrawal, was given 10 mg IV haldol and eventually got some rest. Was started on scheudled valium with prn haldol and we have continued that today. He has been in and out of restraints due to high risk of harm to self and others. No bleeding, no dyspnea, no fever. Reason For Visit: ALCOHOL WITHDRAWAL Physical Exam Vital Signs: Temp Pulse Resp BP Pulse Ox 98.1 F 80 18 114/63 95 10/29/17 11:53 10/29/17 11:53 10/29/17 11:53 10/29/17 11:53 10/29/17 12:00 Pulse Oximeter Continuous Start: 10/28/17 22: 21 Freq: RTQ4 Status: Active Document 10/29/17 12:00 LDA (Rec: 10/29/17 14:10 [email or web address]) Pulse Oximetry Assessment Oxygen Saturation (92-100) 95 Oxygen Delivery Method Room Air Fraction of Inspired Oxygen (FIO2) 21 Equipment Usage Equipment in Use Continuous SpO2 Machine # 9 Intake & Output 10/28/17 10/29/17 10/30/17 06:59 06:59 06:59 Intake Total 1624 837 222 Balance 1624 837 222 Weight 80.5 kg General appearance: PRESENT: disheveled, mild distress Head exam: PRESENT: atraumatic, normocephalic Eye exam: PRESENT: scleral icterus Mouth exam: PRESENT: dry mucosa Respiratory exam: PRESENT: clear to auscultation jason, unlabored. ABSENT: rales , rhonchi, wheezes Cardiovascular exam: PRESENT: RRR. ABSENT: systolic murmur Pulses: PRESENT: normal radial pulses GI/Abdominal exam: PRESENT: ascites, distended, normal bowel sounds, soft. ABSENT: tenderness Extremities exam: PRESENT: pedal edema Neurological exam: PRESENT: altered, awake, oriented to person. ABSENT: oriented to place, oriented to situation Psychiatric exam: PRESENT: agitated Skin exam: PRESENT: dry, intact Results Laboratory Results: 10/29/17 06:29 10/29/17 06:29 10/29/17 10/29/17 10/29/17 06:29 06:29 06:29 WBC 10.8 H RBC 2.79 L Hgb 9.6 L Hct 27.8 L MCV 99 H MCH 34.2 H MCHC 34.4 RDW 18.1 H Plt Count 207 Sodium 141.8 Potassium 3.7 Chloride 108 H Carbon Dioxide 18 L Anion Gap 16 BUN 16 Creatinine 0.56 Est GFR ( Amer) > 60 Est GFR (Non-Af Amer) > 60 Glucose 95 Calcium 9.4 Magnesium 1.6 Total Bilirubin 10.7 H AST 162 H ALT 52 Alkaline Phosphatase 162 H Ammonia 75.3 H Total Protein 7.0 Albumin 3.5 Impressions: Chest/Abdomen CTA 10/12/17 13:46 IMPRESSION: No CT angio evidence of acute pulmonary emboli or thoracic aortic or abdominal aortic dissection or aneurysm. Hepatomegaly with recannulized umbilical vein and splenomegaly from portal hypertension. No CT evidence of portal vein, superior mesenteric vein, or hepatic vein thrombosis. No CT evidence of bowel obstruction Inflammatory changes around the distal esophagus with distal esophageal varices and inflammation in the surrounding para esophageal fat Findings discussed with Dr. Pelayo in the emergency room [facility] X-Ray 10/18/17 00:00 IMPRESSION: NO RADIOGRAPHIC EVIDENCE FOR ACUTE ABDOMINAL DISEASE. Abdomen Ultrasound 10/19/17 16:29 IMPRESSION: NO EVIDENCE FOR ASCITES. Head CT 10/22/17 00:00 IMPRESSION: NORMAL BRAIN CT WITHOUT CONTRAST. EVIDENCE OF ACUTE STROKE: NO. Assessment & Plan - Diagnosis (1) Agitation Is this a current diagnosis for this admission?: Yes Plan: Related to alcohol withdrawal syndrome. Please see that problem below. Is improved today. (2) Acute alcoholic hepatitis Is this a current diagnosis for this admission?: Yes Plan: Today the patient's transaminases and bilirubin have improved. His INR has normalized. Steroids are on hold secondary to agitation. (3) Acute hepatic encephalopathy Is this a current diagnosis for this admission?: Yes Plan: Patient will continue his lactulose. (4) Cirrhosis Qualifiers: Hepatic cirrhosis type: alcoholic cirrhosis Is this a current diagnosis for this admission?: Yes Plan: Patient has cirrhosis related to alcohol abuse and hepatitis C. He will need close follow-up with gastroenterology upon discharge. His plan is for long- term rehab and we will do we can to encourage and support that plan. He is not currently a transplant candidate due to continued alcohol use. (5) Alcohol withdrawal delirium, acute, hyperactive Is this a current diagnosis for this admission?: Yes Plan: Patient would be on the very tail end of an alcohol withdrawal syndrome timeline but this appears to be what is happening clinically. He has responded to benzodiazepine and also Haldol for severe agitation. He is currently on Valium 20 mg p.o. every 6 hours with Haldol 2 mg IV doses available as needed. He has been on and off of physical restraints secondary to attempts to harm others and his delirium and also he continues to be at high risk for harming himself and others. - Time Time Spent with patient: 25-34 minutes Medications reviewed and adjusted accordingly: Yes - Inpatient Certification Based on my medical assessment, after consideration of the patient's comorbidities, presenting symptoms, or acuity I expect that the services needed warrant INPATIENT care.: Yes I certify that my determination is in accordance with my understanding of Medicare's requirements for reasonable and necessary INPATIENT services [42 CFR 412.3e].: Yes Medical Necessity: Need Close Monitoring Due to Risk of Patient Decompensation, Risk of Complication if Not Cared For in Hospital
[2017-10-30] MEDS: LACTULOSE SYRUP 20 GM/30 ML UDCUP PO SCH ×6 (04:25→22:54)
[2017-10-30] MEDS: DIAZEPAM 5 MG TABLET PO SCH ×4 (05:35→23:59)
[2017-10-30] MEDS: GABAPENTIN 100 MG CAPSULE PO SCH ×3 (05:36→22:54)
[2017-10-30] MEDS: PHARMACY COMMUNICATION ORDER MC SCH ×2 (05:42→22:58)
[2017-10-30 06:30] LABS: HEMATOCRIT 30.4 % (37.9-51.0); HEMOGLOBIN 10.1 g/dL (13.5-17.0); MEAN CORPUSCULAR HEMOGLOBIN 33.4 pg (27.0-33.4); MEAN CORPUSCULAR HGB CONC 33.2 g/dL (32.0-36.0); MEAN CORPUSCULAR VOLUME 100 fl (80-97); PLATELET COUNT 219 10^3/uL (150-450); RED BLOOD COUNT 3.03 10^6/uL (4.35-5.55); RED CELL DISTRIBUTION WIDTH 17.8 % (11.5-14.0); WHITE BLOOD COUNT 13.2 10^3/uL (4.0-10.5)
[2017-10-30 06:50] LABS: ALANINE AMINOTRANSFERASE 76 U/L (21-72); ALBUMIN 3.8 g/dL (3.5-5.0); ALKALINE PHOSPHATASE 186 U/L (38-126); ASPARTATE AMINO TRANSFERASE 449 U/L (17-59); BILIRUBIN,DIRECT 10.4 mg/dL (0.0-0.4); BLOOD UREA NITROGEN 20 mg/dL (7-20); GLUCOSE 82 mg/dL (75-110); POTASSIUM 3.8 mmol/L (3.6-5.0); TOTAL PROTEIN 7.5 g/dL (6.3-8.2)
[2017-10-30 06:56] LABS: CARBON DIOXIDE 20 mmol/L (22-30); CHLORIDE 103 mmol/L (98-107); SODIUM 146.8 mmol/L (137-145)
[2017-10-30 07:03] LABS: ANION GAP 24 (5-19)
[2017-10-30] MEDS: SODIUM BICARBONATE 650 MG TABLET PO SCH ×2 (09:14→22:54)
[2017-10-30] MEDS: DIVALPROEX SODIUM 250 MG TABLET.DR PO SCH ×2 (09:15→22:57)
[2017-10-30] MEDS: PREDNISONE 20 MG TABLET PO SCH (09:15)
[2017-10-30] MEDS: PHOSPHORUS #1 250 MG TABLET PO SCH ×2 (09:15→16:33)
[2017-10-30] MEDS: THIAMINE HCL 100 MG TABLET PO SCH (09:15)
[2017-10-30] MEDS: FOLIC ACID 1 MG TABLET PO SCH (09:16)
[2017-10-30] MEDS: CLONIDINE HCL 0.1 MG TABLET PO SCH ×4 (09:16→23:59)
[2017-10-30] MEDS: BUSPIRONE HCL 10 MG TABLET PO SCH ×2 (09:16→22:53)
[2017-10-30] MEDS: MAGNESIUM OXIDE 400 MG TABLET PO SCH (09:16)
[2017-10-30] MEDS: LIDOCAINE 5% (700 MG) TRANSDERMAL ADH..PATCH TP SCH (09:17)
[2017-10-30] MEDS: NICOTINE 21 MG/24 HR PATCH.TD24 TD SCH (09:17)
[2017-10-30] MEDS: ONDANSETRON 4 MG TAB.RAPDIS PO PRN (15:24)
[2017-10-30] MEDS: LORAZEPAM INJ 2 MG/1 ML VIAL IV PRN (17:19)
--- NOTE | 2017-10-30 17:41 | PDOC PROGRESS REPORT ---
Subjective Progress Note for:: 10/30/17 Subjective:: Patient feels a lot better today. He is less confused. He is walking around the hallway with assistance. He feels that his skin is a little bit less yellow. He is eating and drinking well. He has been out of restraints all day. No dysuria. No constipation. He is able to take his lactulose without difficulty. No fevers or chills. No vomiting. Reason For Visit: ALCOHOL WITHDRAWAL Physical Exam Vital Signs: Temp Pulse Resp BP Pulse Ox 98.5 F 100 18 121/65 96 10/30/17 11:47 10/30/17 14:00 10/30/17 11:47 10/30/17 11:47 10/30/17 11:47 Pulse Oximeter Continuous Start: 10/28/17 22: 21 Freq: RTQ4 Status: Active Document 10/30/17 16:00 LDA (Rec: 10/30/17 16:24 [email or web address] [email or web address]) Pulse Oximetry Assessment Equipment Usage Equipment Standby Continuous SpO2 Machine # 9 Intake & Output 10/29/17 10/30/17 10/31/17 06:59 06:59 06:59 Intake Total 837 2006 859 Balance 837 2006 859 General appearance: PRESENT: no acute distress, cooperative Head exam: PRESENT: atraumatic, normocephalic Eye exam: PRESENT: EOMI, scleral icterus Mouth exam: PRESENT: moist Respiratory exam: PRESENT: clear to auscultation jason, unlabored. ABSENT: rales , rhonchi, wheezes Cardiovascular exam: PRESENT: RRR. ABSENT: systolic murmur Pulses: PRESENT: normal radial pulses GI/Abdominal exam: PRESENT: ascites, distended, normal bowel sounds, soft. ABSENT: guarding, tenderness Rectal exam: PRESENT: deferred Extremities exam: PRESENT: pedal edema Neurological exam: PRESENT: alert, awake, oriented to person, oriented to place , oriented to situation, other - Slight confusion but with a little bit of redirection he is oriented. Psychiatric exam: PRESENT: anxious, appropriate affect Skin exam: PRESENT: dry, warm, other - Jaundice Results Laboratory Results: 10/30/17 05:52 10/30/17 05:52 10/30/17 10/30/17 05:52 05:52 WBC 13.2 H RBC 3.03 L Hgb 10.1 L Hct 30.4 L MCV 100 H MCH 33.4 MCHC 33.2 RDW 17.8 H Plt Count 219 Sodium 146.8 H Potassium 3.8 Chloride 103 Carbon Dioxide 20 L Anion Gap 24 H BUN 20 Creatinine 0.84 Est GFR ( Amer) > 60 Est GFR (Non-Af Amer) > 60 Glucose 82 Calcium 10.0 Total Bilirubin 12.0 H AST 449 H ALT 76 H Alkaline Phosphatase 186 H Total Protein 7.5 Albumin 3.8 Impressions: Chest/Abdomen CTA 10/12/17 13:46 IMPRESSION: No CT angio evidence of acute pulmonary emboli or thoracic aortic or abdominal aortic dissection or aneurysm. Hepatomegaly with recannulized umbilical vein and splenomegaly from portal hypertension. No CT evidence of portal vein, superior mesenteric vein, or hepatic vein thrombosis. No CT evidence of bowel obstruction Inflammatory changes around the distal esophagus with distal esophageal varices and inflammation in the surrounding para esophageal fat Findings discussed with Dr. Pelayo in the emergency room K[facility] X-Ray 10/18/17 00:00 IMPRESSION: NO RADIOGRAPHIC EVIDENCE FOR ACUTE ABDOMINAL DISEASE. Abdomen Ultrasound 10/19/17 16:29 IMPRESSION: NO EVIDENCE FOR ASCITES. Head CT 10/22/17 00:00 IMPRESSION: NORMAL BRAIN CT WITHOUT CONTRAST. EVIDENCE OF ACUTE STROKE: NO. Assessment & Plan - Diagnosis (1) Agitation Is this a current diagnosis for this admission?: Yes Plan: Significantly improved on scheduled Valium. Will continue as needed Haldol. (2) Acute alcoholic hepatitis Is this a current diagnosis for this admission?: Yes Plan: Patient's bilirubin improved yesterday, a bilirubin and AST increased. He had been started on steroids and secondary to severe agitation which required restraints and 10 mg of IV Haldol I held the steroids. May need to restart. Will reassess again tomorrow. (3) Acute hepatic encephalopathy Is this a current diagnosis for this admission?: Yes Plan: Patient is not taking his lactulose and his mental status is improving. (4) Cirrhosis Qualifiers: Hepatic cirrhosis type: alcoholic cirrhosis Is this a current diagnosis for this admission?: Yes Plan: Caused by hep C and alcohol. Will trend LFTs. Hopefully patient will improve for discharge. Patient is interested in long-term alcohol counseling and treatment. He will need outpatient gastroenterology follow-up. (5) Alcohol withdrawal delirium, acute, hyperactive Is this a current diagnosis for this admission?: Yes Plan: This was the hypothesized etiology of his severe agitation. It is also possible that steroids were contributing. Will continue current Valium 20 mg p.o. every 6 hours along with as needed Haldol. He is much improved today and out of restraints. - Time Time Spent with patient: 15-24 minutes Medications reviewed and adjusted accordingly: Yes - Inpatient Certification Based on my medical assessment, after consideration of the patient's comorbidities, presenting symptoms, or acuity I expect that the services needed warrant INPATIENT care.: Yes I certify that my determination is in accordance with my understanding of Medicare's requirements for reasonable and necessary INPATIENT services [42 CFR 412.3e].: Yes Medical Necessity: Need Close Monitoring Due to Risk of Patient Decompensation, Risk of Complication if Not Cared For in Hospital
[2017-10-31] MEDS: LORAZEPAM INJ 2 MG/1 ML VIAL IV PRN ×2 (02:37→23:33)
[2017-10-31] MEDS: LACTULOSE SYRUP 20 GM/30 ML UDCUP PO SCH ×6 (02:38→21:35)
[2017-10-31] MEDS: DIAZEPAM 5 MG TABLET PO SCH ×4 (06:37→20:04)
[2017-10-31] MEDS: CLONIDINE HCL 0.1 MG TABLET PO SCH ×4 (06:38→23:33)
[2017-10-31] MEDS: GABAPENTIN 100 MG CAPSULE PO SCH ×3 (06:38→21:35)
[2017-10-31 07:09] LABS: HEMATOCRIT 28.4 % (37.9-51.0); HEMOGLOBIN 9.3 g/dL (13.5-17.0); MEAN CORPUSCULAR HGB CONC 32.8 g/dL (32.0-36.0); MEAN CORPUSCULAR VOLUME 101 fl (80-97); PLATELET COUNT 199 10^3/uL (150-450); RED BLOOD COUNT 2.82 10^6/uL (4.35-5.55); RED CELL DISTRIBUTION WIDTH 17.8 % (11.5-14.0); WHITE BLOOD COUNT 12.9 10^3/uL (4.0-10.5)
[2017-10-31 07:31] LABS: ALANINE AMINOTRANSFERASE 58 U/L (21-72); ALBUMIN 3.6 g/dL (3.5-5.0); ALKALINE PHOSPHATASE 162 U/L (38-126); ANION GAP 18 (5-19); ASPARTATE AMINO TRANSFERASE 210 U/L (17-59); BILIRUBIN,DIRECT 8.6 mg/dL (0.0-0.4); BILIRUBIN,TOTAL 9.9 mg/dL (0.2-1.3); BLOOD UREA NITROGEN 17 mg/dL (7-20); CALCIUM 9.7 mg/dL (8.4-10.2); CARBON DIOXIDE 20 mmol/L (22-30); CHLORIDE 105 mmol/L (98-107); GLUCOSE 128 mg/dL (75-110); POTASSIUM 3.6 mmol/L (3.6-5.0); SODIUM 143.1 mmol/L (137-145)
[2017-10-31] MEDS: PHOSPHORUS #1 250 MG TABLET PO SCH ×2 (08:03→17:15)
--- NOTE | 2017-10-31 10:50 | PROGRESS NOTE E ---
Progress Note NAME: RAMBO MARTINEZ : 1985 AGE: 32Y DATE: 10/31/2017 ROOM: 328 SUBJECTIVE: The patient is lying in bed. I am having a difficult time having the patient to respond this morning. According to nursing staff, he has been unable to take his lactulose since the nighttime shift. The patient has had no reported episodes of vomiting nor diarrhea. The patient still remains intermittently delirious. It appears yesterday that he did not require restrains. Overall, it appears he is making some progress. The patient has been afebrile. His blood pressures have been in a good range, but the patient is unable to voice any concerns at this time. BRIEF HISTORY: The patient is an unfortunate 32-year-old male with a past medical history of chronic alcoholism and hepatitis C with subsequent alcoholic cirrhosis. The patient presented to the emergency department and was found to be septic. The patient was treated with broad-spectrum antibiotic coverage and this appears to have resolved. However, the patient's mental status has continued to wax and wane, thought to be due to DTs. The patient is awaiting possible placement for alcohol treatment and the case has been discussed with [facility] Hepatology on 2 separate occasions. However, there is nothing to offer given that the patient came in actively intoxicated. REVIEW OF SYSTEMS: Full review of systems cannot be appreciated due to the patient's mental status. MEDICATIONS: Reviewed. OBJECTIVE: GENERAL: The patient is a 32-year-old male who is obtunded, does not appear to be distressed, does appear to be comfortable. VITAL SIGNS: Temperature is 98.3, pulse 86, respirations 14, blood pressure is 122/72, oxygen saturation 98% on room air. SKIN: Jaundiced. No evidence of rash. He is not diaphoretic. HEENT: Sclera is icterus. Pupils are sluggish, but reactive. There is no evidence of JVP. CARDIOVASCULAR SYSTEM: Heart is regular. No rub. CHEST: Diminished, symmetrical, unlabored. ABDOMEN: Distended with palpable hepatomegaly. Bowel sounds are present. EXTREMITIES: No clubbing, cyanosis. The patient does have chronic third-spacing edema. PSYCHIATRIC: Unable to fully assess. DIAGNOSTICS: Lab values are as follows: Hematology obtained on 10/31/2017: WBCs are 12.1, hemoglobin is 9.3, hematocrit is 28.4, platelet count is 195,000. Chemistry obtained on 10/31/2017: Sodium is 143, potassium 3.6, chloride is 105, carbon dioxide 20, BUN 17, creatinine is 0.61, glucose 128, calcium is 9.7, total bili is 9.9. AST 210, ALT is 58, Alk phos 162, total protein is 7.0, albumin 3.6. IMPRESSION AND PLAN: 1. ALCOHOL DEPENDENCY, CONTINUOUS WITH WITHDRAWAL, DELIRIUM. Overall, it appears that this is slowly improving. [place] this may be exacerbated by steroids. I assume the steroids have been started for the patient's cirrhosis. Will go ahead and reduce the dosage and also reduce the patient's Valium dosage by 5 mg given the patient is obtunded and continue with CIWA protocol; however, the patient should be out of the withdrawal window at this point. Will continue B vitamins. 2. CIRRHOSIS, MULTIFOCAL, INCLUDING HEP C WELL ALCOHOLISM. LFTs overall on a downward trend, but have waxed and waned. The patient is definitely hyperalbuminemic. Therefore, will give his lactulose rectally in an effort to wake him up and get him to come around. The patient will also need to be followed at the GI. The case has been discussed with [facility] Hepatology on 2 separate occasions. 3. ACUTE HEPATIC ENCEPHALOPATHY. Of course, it is difficult to discern what is alcohol versus hepatic encephalopathy. Regardless, if we treat one, we can help the other. 4. ACUTE ALCOHOLIC HEPATITIS. Again, these continue to downward trend his LFTs. 5. CHRONIC METABOLIC ACIDOSIS, MOST LIKELY DUE TO THE PATIENT'S HEPATIC FAILURE. Continue to supplement sodium bicarb and follow the patient's chemistries. 6. HYPOMAGNESEMIA. This is being supplemented. 7. HYPOPHOSPHATEMIA. Again, this is being supplemented. Will repeat labs in the a.m. and follow. DISPOSITION: The patient is a full code. Pending patient's symptomatology and diagnostic findings, will re-evaluate in the a.m. Time spent on this followup including assessment, plan, physical examination, patient education, review of records is 35 minutes. DICTATING PHYSICIAN: BHASKAR SOMMERS NP [id number] PHY#: [id number] ID: [id number] JOB#: [id number] ACCT: [id number] cc: >
[2017-10-31] MEDS: FOLIC ACID 1 MG TABLET PO SCH (11:29)
[2017-10-31] MEDS ORDERED: LACTULOSE SYRUP 20 GM/30 ML UDCUP PR ONE (11:30)
[2017-10-31] MEDS: BUSPIRONE HCL 10 MG TABLET PO SCH ×2 (11:30→21:36)
[2017-10-31] MEDS: DIVALPROEX SODIUM 250 MG TABLET.DR PO SCH ×2 (11:30→21:38)
[2017-10-31] MEDS: MAGNESIUM OXIDE 400 MG TABLET PO SCH (11:30)
[2017-10-31] MEDS ORDERED: PREDNISONE 20 MG TABLET PO ONE (11:30)
[2017-10-31] MEDS: THIAMINE HCL 100 MG TABLET PO SCH (11:30)
[2017-10-31] MEDS: LIDOCAINE 5% (700 MG) TRANSDERMAL ADH..PATCH TP SCH (11:31)
[2017-10-31] MEDS: SODIUM BICARBONATE 650 MG TABLET PO SCH ×2 (11:31→21:34)
[2017-10-31] MEDS: NICOTINE 21 MG/24 HR PATCH.TD24 TD SCH (11:31)
[2017-10-31] MEDS: PHARMACY COMMUNICATION ORDER MC SCH (21:38)
[2017-11-01] MEDS: LACTULOSE SYRUP 20 GM/30 ML UDCUP PO SCH ×6 (05:24→21:29)
[2017-11-01] MEDS: GABAPENTIN 100 MG CAPSULE PO SCH ×3 (05:25→21:30)
[2017-11-01] MEDS: CLONIDINE HCL 0.1 MG TABLET PO SCH ×3 (05:26→17:48)
[2017-11-01] MEDS: DIAZEPAM 5 MG TABLET PO SCH ×3 (05:26→17:49)
[2017-11-01 06:29] LABS: HEMATOCRIT 31.2 % (37.9-51.0); HEMOGLOBIN 10.4 g/dL (13.5-17.0); MEAN CORPUSCULAR HEMOGLOBIN 33.8 pg (27.0-33.4); MEAN CORPUSCULAR HGB CONC 33.3 g/dL (32.0-36.0); MEAN CORPUSCULAR VOLUME 102 fl (80-97); RED BLOOD COUNT 3.07 10^6/uL (4.35-5.55); RED CELL DISTRIBUTION WIDTH 17.7 % (11.5-14.0)
[2017-11-01 06:56] LABS: ALANINE AMINOTRANSFERASE 77 U/L (21-72); ALKALINE PHOSPHATASE 175 U/L (38-126); ASPARTATE AMINO TRANSFERASE 250 U/L (17-59); BILIRUBIN,TOTAL 9.2 mg/dL (0.2-1.3); BLOOD UREA NITROGEN 19 mg/dL (7-20); CALCIUM 10.1 mg/dL (8.4-10.2); GLUCOSE 122 mg/dL (75-110); PHOSPHORUS 4.1 mg/dL (2.5-4.5); POTASSIUM 4.2 mmol/L (3.6-5.0); TOTAL PROTEIN 7.9 g/dL (6.3-8.2)
[2017-11-01 07:00] LABS: CARBON DIOXIDE 23 mmol/L (22-30); CHLORIDE 103 mmol/L (98-107)
[2017-11-01 07:12] LABS: ABSOLUTE LYMPHOCYTES# (MANUAL) 0.9 10^3/uL (0.5-4.7); ABSOLUTE MONOCYTES # (MANUAL) 1.1 10^3/uL (0.1-1.4); BAND NEUTROPHILS % (MANUAL) 1 % (3-5); BASOPHILS % (MANUAL) 0 % (0-2); EOSINOPHILS % (MANUAL) 0 % (0-6); LYMPHOCYTES % (MANUAL) 5 % (13-45); MONOCYTES % (MANUAL) 6 % (3-13); SEGMENTED NEUTROPHILS % (MAN) 88 % (42-78); TOTAL CELLS COUNTED 100
[2017-11-01 07:15] LABS: ANISOCYTOSIS 1+; PLATELET CLUMPS PRESENT; PLATELET COMMENT ADEQUATE; PLATELET LARGE PRESENT; POIKILOCYTOSIS 1+; TARGET CELLS 1+
[2017-11-01 07:16] LABS: PLATELET COUNT 265 10^3/uL (150-450)
[2017-11-01 07:17] LABS: ANION GAP 20 (5-19)
[2017-11-01] MEDS: PHOSPHORUS #1 250 MG TABLET PO SCH ×2 (09:49→17:48)
[2017-11-01] MEDS: SODIUM BICARBONATE 650 MG TABLET PO SCH ×2 (09:50→21:29)
[2017-11-01] MEDS: PREDNISONE 20 MG TABLET PO SCH (09:51)
[2017-11-01] MEDS: DIVALPROEX SODIUM 250 MG TABLET.DR PO SCH ×2 (09:52→21:29)
[2017-11-01] MEDS: THIAMINE HCL 100 MG TABLET PO SCH (09:53)
[2017-11-01] MEDS: MAGNESIUM OXIDE 400 MG TABLET PO SCH (09:54)
[2017-11-01] MEDS: FOLIC ACID 1 MG TABLET PO SCH (09:54)
[2017-11-01] MEDS: BUSPIRONE HCL 10 MG TABLET PO SCH ×2 (09:54→21:30)
[2017-11-01] MEDS: NICOTINE 21 MG/24 HR PATCH.TD24 TD SCH (09:55)
[2017-11-01] MEDS: LIDOCAINE 5% (700 MG) TRANSDERMAL ADH..PATCH TP SCH (09:55)
[2017-11-01] MEDS: LORAZEPAM INJ 2 MG/1 ML VIAL IV PRN ×2 (11:33→20:12)
--- NOTE | 2017-11-01 18:42 | PDOC PROGRESS REPORT ---
Subjective Progress Note for:: 11/01/17 Subjective:: The patient is an unfortunate 32-year-old male with a past medical history for alcohol abuse. He has untreated hepatitis C and currently has decompensated liver failure and acute alcoholic hepatitis. He has been started on steroids. His discussions have been had with [facility] about a potential transfer. They do not feel that they have anything to offer. 2 days ago the patient had increased confusion and was unable to take his lactulose. He was quite combative and had to be placed temporarily back in restraints. He was given a lactulose enema and he improved. He is now back on his oral medication and doing fairly well. I spoke at length to the patient's mother today. She ultimately would like him to go to [facility] for rehab in [place] and the patient is agreeable to this. At this point we need to get him medically stable. His liver function test are still markedly elevated. According to the patient's mother he did not sleep well last night. He did receive a dose of IV Ativan right before he came into the room and he currently is sleeping. He was not arousable. Review of systems cannot be obtained Reason For Visit: ALCOHOL WITHDRAWAL Physical Exam Vital Signs: Temp Pulse Resp BP Pulse Ox 99.0 F 80 18 120/74 97 11/01/17 15:24 11/01/17 15:24 11/01/17 15:24 11/01/17 15:24 11/01/17 15:24 Pulse Oximeter Continuous Start: 10/28/17 22: 21 Freq: RTQ4 Status: Active Document 11/01/17 16:40 [facility] (Rec: 11/01/17 18:00 [facility] [email or web address]) Pulse Oximetry Assessment Equipment Usage Equipment Standby Continuous SpO2 Machine # 9 Intake & Output 10/31/17 11/01/17 11/02/17 06:59 06:59 06:59 Intake Total 6675 088 Balance 2790 2047 494 Weight 85.7 kg 86.8 kg General appearance: PRESENT: no acute distress, well-developed, well-nourished Head exam: PRESENT: atraumatic, normocephalic Mouth exam: PRESENT: moist, tongue midline Respiratory exam: PRESENT: clear to auscultation jason. ABSENT: rales, rhonchi, wheezes Cardiovascular exam: PRESENT: RRR. ABSENT: diastolic murmur, rubs, systolic murmur Vascular exam: PRESENT: normal capillary refill GI/Abdominal exam: PRESENT: normal bowel sounds, soft. ABSENT: distended, guarding, mass, organolmegaly, rebound, tenderness Rectal exam: PRESENT: deferred Results Laboratory Results: 11/01/17 06:02 11/01/17 06:02 11/01/17 11/01/17 11/01/17 06:02 06:02 06:02 WBC 18.0 H RBC 3.07 L Hgb 10.4 L Hct 31.2 L MCV 102 H MCH 33.8 H MCHC 33.3 RDW 17.7 H Plt Count 265 Seg Neutrophils % Not Reportable Lymphocytes % Not Reportable Monocytes % Not Reportable Eosinophils % Not Reportable Basophils % Not Reportable Absolute Neutrophils Not Reportable Absolute Lymphocytes Not Reportable Absolute Monocytes Not Reportable Absolute Eosinophils Not Reportable Absolute Basophils Not Reportable Sodium 146.0 H Potassium 4.2 Chloride 103 Carbon Dioxide 23 Anion Gap 20 H BUN 19 Creatinine 0.63 Est GFR ( Amer) > 60 Est GFR (Non-Af Amer) > 60 Glucose 122 H Calcium 10.1 Phosphorus 4.1 Magnesium 1.4 L Total Bilirubin 9.2 H AST 250 H ALT 77 H Alkaline Phosphatase 175 H Ammonia 52.3 H Total Protein 7.9 Albumin 4.0 Impressions: Chest/Abdomen CTA 10/12/17 13:46 IMPRESSION: No CT angio evidence of acute pulmonary emboli or thoracic aortic or abdominal aortic dissection or aneurysm. Hepatomegaly with recannulized umbilical vein and splenomegaly from portal hypertension. No CT evidence of portal vein, superior mesenteric vein, or hepatic vein thrombosis. No CT evidence of bowel obstruction Inflammatory changes around the distal esophagus with distal esophageal varices and inflammation in the surrounding para esophageal fat Findings discussed with Dr. Pelayo in the emergency room KUB X-Ray 10/18/17 00:00 IMPRESSION: NO RADIOGRAPHIC EVIDENCE FOR ACUTE ABDOMINAL DISEASE. Abdomen Ultrasound 10/19/17 16:29 IMPRESSION: NO EVIDENCE FOR ASCITES. Head CT 10/22/17 00:00 IMPRESSION: NORMAL BRAIN CT WITHOUT CONTRAST. EVIDENCE OF ACUTE STROKE: NO. Assessment & Plan - Diagnosis (1) Sepsis Is this a current diagnosis for this admission?: Yes Plan: Resolved. He likely has spontaneous bacterial peritonitis. At this point he is completed a course of IV antibiotics. (2) Spontaneous bacterial peritonitis Is this a current diagnosis for this admission?: Yes Plan: He is completed a course of antibiotic therapy at this point. (3) Acute alcoholic hepatitis Is this a current diagnosis for this admission?: Yes Plan: Liver function tests are slowly trending downwards but still markedly elevated. They peaked at 15.8 on October 26, 2017 and are slowly trending downwards. Currently 9.2. He is on prednisone. We will continue supportive care and hopefully we can continue to improve. (4) Acute hepatic encephalopathy Is this a current diagnosis for this admission?: Yes Plan: Continue lactulose. He is improving after receiving his lactulose enema. (5) Alcohol dependence with withdrawal Qualifiers: Complication of substance-induced condition: uncomplicated Qualified Code(s ): F10.230 - Alcohol dependence with withdrawal, uncomplicated Is this a current diagnosis for this admission?: Yes Plan: At this point does not seem to be actively withdrawing anymore. This has resolved (6) Cirrhosis Qualifiers: Hepatic cirrhosis type: alcoholic cirrhosis Is this a current diagnosis for this admission?: Yes Plan: Decompensated liver failure at this point. He needs to quit drinking. At this point the plan is for him to go to rehab as mentioned above. We need to get him medically stable first. (7) Hepatitis C Qualifiers: Viral hepatitis chronicity: chronic Is this a current diagnosis for this admission?: Yes Plan: This is chronic and untreated. At this point he is not a candidate for treatment. (8) Thickening of esophagus Is this a current diagnosis for this admission?: Yes Plan: Likely due to portal hypertension and esophageal varices. (9) Hypophosphatemia Is this a current diagnosis for this admission?: Yes Plan: Repleted and resolved (10) Hypokalemia Is this a current diagnosis for this admission?: Yes Plan: Repleted and resolved. He will have a chemistry panel drawn in the morning. (11) Hypomagnesemia Is this a current diagnosis for this admission?: Yes Plan: His level is low today. He will receive 3 g of magnesium sulfate today and he will have a level drawn in the morning. (12) Hypocalcemia Is this a current diagnosis for this admission?: Yes Plan: Corrected calcium is within normal limits (13) Coagulopathy Is this a current diagnosis for this admission?: Yes Plan: Stable. Due to his alcoholic liver disease (14) Anemia Is this a current diagnosis for this admission?: Yes Plan: This is a macrocytic anemia. Related to his underlying alcohol use. Continue folic acid and thiamine. (15) Full code status Is this a current diagnosis for this admission?: Yes - Time Time Spent with patient: 25-34 minutes - Inpatient Certification Medical Necessity: Other - Inpatient hospitalization remains necessary. The patient has acute alcoholic hepatitis requiring treatment. He is not medically stable for transition to an inpatient alcohol rehab program. He will remain in the hospital until that time.
[2017-11-01] MEDS: MAGNESIUM SULFATE/D5W 1 GM/100 ML RTUPB IV SCH ×2 (20:12→23:12)
[2017-11-01] MEDS: PHARMACY COMMUNICATION ORDER MC SCH (21:30)
[2017-11-02] MEDS: CLONIDINE HCL 0.1 MG TABLET PO SCH ×4 (00:15→19:39)
[2017-11-02] MEDS: MAGNESIUM SULFATE/D5W 1 GM/100 ML RTUPB IV SCH (00:17)
[2017-11-02] MEDS: LORAZEPAM INJ 2 MG/1 ML VIAL IV PRN ×2 (00:21→04:50)
[2017-11-02] MEDS: DIAZEPAM 5 MG TABLET PO SCH ×4 (00:22→19:39)
[2017-11-02] MEDS: LACTULOSE SYRUP 20 GM/30 ML UDCUP PO SCH ×6 (03:58→22:22)
[2017-11-02] MEDS: GABAPENTIN 100 MG CAPSULE PO SCH ×3 (06:03→22:22)
[2017-11-02] MEDS: NICOTINE 21 MG/24 HR PATCH.TD24 TD SCH (12:21)
[2017-11-02] MEDS: PHOSPHORUS #1 250 MG TABLET PO SCH ×2 (12:22→19:39)
[2017-11-02] MEDS: LIDOCAINE 5% (700 MG) TRANSDERMAL ADH..PATCH TP SCH (12:22)
[2017-11-02] MEDS: PREDNISONE 20 MG TABLET PO SCH (12:23)
[2017-11-02] MEDS: BUSPIRONE HCL 10 MG TABLET PO SCH ×2 (12:24→22:22)
[2017-11-02] MEDS: MAGNESIUM OXIDE 400 MG TABLET PO SCH (12:24)
[2017-11-02] MEDS: DIVALPROEX SODIUM 250 MG TABLET.DR PO SCH ×2 (12:25→22:23)
[2017-11-02] MEDS: FOLIC ACID 1 MG TABLET PO SCH (12:26)
[2017-11-02] MEDS: SODIUM BICARBONATE 650 MG TABLET PO SCH ×2 (12:28→22:22)
[2017-11-02] MEDS: THIAMINE HCL 100 MG TABLET PO SCH (12:28)
--- NOTE | 2017-11-02 18:54 | PDOC PROGRESS REPORT ---
Subjective Progress Note for:: 11/02/17 Subjective:: The patient is an unfortunate 32-year-old male with a past medical history for alcohol abuse. He has untreated hepatitis C and currently has decompensated liver failure and acute alcoholic hepatitis. He has been started on steroids. His discussions have been had with [facility] about a potential transfer. They do not feel that they have anything to offer. 2 days ago the patient had increased confusion and was unable to take his lactulose. He was quite combative and had to be placed temporarily back in restraints. He was given a lactulose enema and he improved. He is now back on his oral medication and doing fairly well. I spoke at length to the patient's mother yesterday. She ultimately would like him to go to [facility] for rehab in [place] and the patient is agreeable to this. At this point we need to get him medically stable. His liver function test are still markedly elevated. Today the patient is sitting up in the bed. He states that he is having significant pain in his lower back and in his hips. He states that he feels like he has a tremor and he feels a little agitated. Overall he seems much more clear and appropriate. He denies fever chills. No chest pain or heart palpitations. No nausea vomiting or diarrhea. No urinary complaints. Reason For Visit: ALCOHOL WITHDRAWAL Physical Exam Vital Signs: Temp Pulse Resp BP Pulse Ox 97.6 F 87 16 114/69 97 11/02/17 15:28 11/02/17 15:28 11/02/17 15:28 11/02/17 15:28 11/02/17 16:07 Pulse Oximeter Continuous Start: 10/28/17 22: 21 Freq: RTQ4 Status: Active Document 11/02/17 16:07 [facility] (Rec: 11/02/17 16:08 [facility] [email or web address]) Pulse Oximetry Assessment Oxygen Saturation (92-100) 97 Oxygen Delivery Method Room Air Fraction of Inspired Oxygen (FIO2) 21 Equipment Usage Equipment in Use Continuous SpO2 Machine # N 9 Intake & Output 11/01/17 11/02/17 11/03/17 06:59 06:59 06:59 Intake Total 20475 210 Output Total 0 Balance 2047 3234 210 Weight 86.8 kg 85.9 kg General appearance: PRESENT: other - Chronically ill-appearing jaundice male Head exam: PRESENT: atraumatic, normocephalic Eye exam: PRESENT: scleral icterus Mouth exam: PRESENT: moist, tongue midline Respiratory exam: PRESENT: clear to auscultation jason. ABSENT: rales, rhonchi, wheezes Cardiovascular exam: PRESENT: RRR. ABSENT: diastolic murmur, rubs, systolic murmur GI/Abdominal exam: PRESENT: normal bowel sounds, soft. ABSENT: distended, guarding, mass, organolmegaly, rebound, tenderness Rectal exam: PRESENT: deferred Extremities exam: PRESENT: full ROM. ABSENT: calf tenderness, clubbing, pedal edema Musculoskeletal exam: PRESENT: ambulatory Neurological exam: PRESENT: alert, awake, oriented to person, oriented to place , oriented to time, oriented to situation, CN II-XII grossly intact. ABSENT: motor sensory deficit Psychiatric exam: PRESENT: anxious, appropriate affect Skin exam: PRESENT: dry, intact, warm. ABSENT: cyanosis, rash Results Laboratory Results: 11/01/17 06:02 11/01/17 06:02 Impressions: Chest/Abdomen CTA 10/12/17 13:46 IMPRESSION: No CT angio evidence of acute pulmonary emboli or thoracic aortic or abdominal aortic dissection or aneurysm. Hepatomegaly with recannulized umbilical vein and splenomegaly from portal hypertension. No CT evidence of portal vein, superior mesenteric vein, or hepatic vein thrombosis. No CT evidence of bowel obstruction Inflammatory changes around the distal esophagus with distal esophageal varices and inflammation in the surrounding para esophageal fat Findings discussed with Dr. Pelayo in the emergency room KUB X-Ray 10/18/17 00:00 IMPRESSION: NO RADIOGRAPHIC EVIDENCE FOR ACUTE ABDOMINAL DISEASE. Abdomen Ultrasound 10/19/17 16:29 IMPRESSION: NO EVIDENCE FOR ASCITES. Head CT 10/22/17 00:00 IMPRESSION: NORMAL BRAIN CT WITHOUT CONTRAST. EVIDENCE OF ACUTE STROKE: NO. Assessment & Plan - Diagnosis (1) Sepsis Is this a current diagnosis for this admission?: Yes Plan: Resolved. He likely had spontaneous bacterial peritonitis. At this point he is completed a course of IV antibiotics. (2) Spontaneous bacterial peritonitis Is this a current diagnosis for this admission?: Yes Plan: He has completed a course of antibiotic therapy at this point. (3) Acute alcoholic hepatitis Is this a current diagnosis for this admission?: Yes Plan: Liver function tests are slowly trending downwards but still markedly elevated. They peaked at 15.8 on October 26, 2017 and are slowly trending downwards. Currently 9.2 yesterday. He is on prednisone. We will continue supportive care and hopefully we can continue to improve. I will check liver panel in the morning. (4) Acute hepatic encephalopathy Is this a current diagnosis for this admission?: Yes Plan: Continue lactulose. He is improving after receiving his lactulose enema. (5) Alcohol dependence with withdrawal Qualifiers: Complication of substance-induced condition: uncomplicated Qualified Code(s ): F10.230 - Alcohol dependence with withdrawal, uncomplicated Is this a current diagnosis for this admission?: Yes Plan: At this point does not seem to be actively withdrawing anymore. This has resolved (6) Cirrhosis Qualifiers: Hepatic cirrhosis type: alcoholic cirrhosis Is this a current diagnosis for this admission?: Yes Plan: Decompensated liver failure at this point. He needs to quit drinking. At this point the plan is for him to go to rehab as mentioned above. We need to get him medically stable first. (7) Hepatitis C Qualifiers: Viral hepatitis chronicity: chronic Is this a current diagnosis for this admission?: Yes (8) Thickening of esophagus Is this a current diagnosis for this admission?: Yes (9) Hypophosphatemia Is this a current diagnosis for this admission?: Yes (10) Hypokalemia Is this a current diagnosis for this admission?: Yes Plan: Repleted and resolved. He will have a chemistry panel drawn in the morning. (11) Hypomagnesemia Is this a current diagnosis for this admission?: Yes Plan: His level is low today. We will recheck a level in the morning. (12) Hypocalcemia Is this a current diagnosis for this admission?: Yes (13) Coagulopathy Is this a current diagnosis for this admission?: Yes Plan: Stable. Due to his alcoholic liver disease (14) Anemia Is this a current diagnosis for this admission?: Yes Plan: This is a macrocytic anemia. Related to his underlying alcohol use. Continue folic acid and thiamine. (15) Full code status Is this a current diagnosis for this admission?: Yes - Time Time Spent with patient: 25-34 minutes - Inpatient Certification Medical Necessity: Other - Inpatient hospitalization remains necessary. The patient still has decompensated liver failure. He is on steroids. He is slowly improving. Timing of disposition will be determined by his clinical course
[2017-11-02] MEDS: IBUPROFEN 600 MG TABLET PO PRN (20:32)
[2017-11-02] MEDS: PHARMACY COMMUNICATION ORDER MC SCH (22:22)
[2017-11-03] MEDS: CLONIDINE HCL 0.1 MG TABLET PO SCH ×4 (01:44→19:31)
[2017-11-03] MEDS: DIAZEPAM 5 MG TABLET PO SCH ×5 (02:06→21:53)
[2017-11-03] MEDS: LACTULOSE SYRUP 20 GM/30 ML UDCUP PO SCH ×6 (02:06→21:53)
[2017-11-03] MEDS: GABAPENTIN 100 MG CAPSULE PO SCH ×3 (05:21→21:54)
[2017-11-03 07:01] LABS: ABSOLUTE BASOPHILS # (AUTO) 0.1 10^3/uL (0.0-0.2); ABSOLUTE EOSINOPHILS # (AUTO) 0.1 10^3/uL (0.0-0.6); ABSOLUTE LYMPHOCYTES (AUTO) 2.2 10^3/uL (0.5-4.7); ABSOLUTE MONOCYTES (AUTO) 0.9 10^3/uL (0.1-1.4); BASOPHILS % (AUTO) 0.7 % (0-2); EOSINOPHILS % (AUTO) 0.3 % (0-6); HEMATOCRIT 31.3 % (37.9-51.0); HEMOGLOBIN 10.3 g/dL (13.5-17.0); LYMPHOCYTES % (AUTO) 11.4 % (13-45); MEAN CORPUSCULAR HEMOGLOBIN 33.5 pg (27.0-33.4); MEAN CORPUSCULAR VOLUME 101 fl (80-97); MONOCYTES % (AUTO) 4.7 % (3-13); PLATELET COUNT 314 10^3/uL (150-450); RED BLOOD COUNT 3.09 10^6/uL (4.35-5.55); RED CELL DISTRIBUTION WIDTH 17.5 % (11.5-14.0); SEGMENTED NEUTROPHILS % (AUTO) 82.9 % (42-78); TOTAL CELLS COUNTED % (AUTO) 100 %; WHITE BLOOD COUNT 19.3 10^3/uL (4.0-10.5)
[2017-11-03 07:20] LABS: ALANINE AMINOTRANSFERASE 90 U/L (21-72); ALBUMIN 4.3 g/dL (3.5-5.0); ALKALINE PHOSPHATASE 174 U/L (38-126); ANION GAP 18 (5-19); ASPARTATE AMINO TRANSFERASE 301 U/L (17-59); BILIRUBIN,TOTAL 7.6 mg/dL (0.2-1.3); BLOOD UREA NITROGEN 22 mg/dL (7-20); CALCIUM 10.5 mg/dL (8.4-10.2); CARBON DIOXIDE 23 mmol/L (22-30); CHLORIDE 104 mmol/L (98-107); GLUCOSE 120 mg/dL (75-110); SODIUM 145.4 mmol/L (137-145); TOTAL PROTEIN 8.2 g/dL (6.3-8.2)
[2017-11-03] MEDS: PREDNISONE 20 MG TABLET PO SCH (11:44)
[2017-11-03] MEDS: THIAMINE HCL 100 MG TABLET PO SCH (11:44)
[2017-11-03] MEDS: MAGNESIUM OXIDE 400 MG TABLET PO SCH (11:44)
[2017-11-03] MEDS: SODIUM BICARBONATE 650 MG TABLET PO SCH ×2 (11:45→21:53)
[2017-11-03] MEDS: BUSPIRONE HCL 10 MG TABLET PO SCH ×2 (11:45→21:53)
[2017-11-03] MEDS: FOLIC ACID 1 MG TABLET PO SCH (11:45)
[2017-11-03] MEDS: DIVALPROEX SODIUM 250 MG TABLET.DR PO SCH ×2 (11:45→21:53)
[2017-11-03] MEDS: NICOTINE 21 MG/24 HR PATCH.TD24 TD SCH (11:46)
[2017-11-03] MEDS: LIDOCAINE 5% (700 MG) TRANSDERMAL ADH..PATCH TP SCH (11:46)
[2017-11-03] MEDS: PHOSPHORUS #1 250 MG TABLET PO SCH ×2 (11:47→15:58)
--- NOTE | 2017-11-03 12:32 | PDOC PROGRESS REPORT ---
Subjective Progress Note for:: 11/03/17 Subjective:: The patient is an unfortunate 32-year-old male with a past medical history for alcohol abuse. He has untreated hepatitis C and currently has decompensated liver failure and acute alcoholic hepatitis. He has been started on steroids. His discussions have been had with [facility] about a potential transfer. They do not feel that they have anything to offer. 4 days ago the patient had increased confusion and was unable to take his lactulose. He was quite combative and had to be placed temporarily back in restraints. He was given a lactulose enema and he improved. He is now back on his oral medication and doing fairly well. I spoke at length to the patient's mother. She ultimately would like him to go to [facility] for rehab in [place] and the patient is agreeable to this. At this point we need to get him medically stable. His liver function test are still markedly elevated but finally seem to be trending downwards.. Today the patient asleep. He will not arouse. Nursing staff reports that he does this every morning and usually wakes up at about noon. A review of systems could not be obtained Reason For Visit: ALCOHOL WITHDRAWAL Physical Exam Vital Signs: Temp Pulse Resp BP Pulse Ox 97.6 F 65 18 118/74 96 11/03/17 07:45 11/03/17 07:45 11/03/17 07:45 11/03/17 07:45 11/03/17 12:13 Pulse Oximeter Continuous Start: 10/28/17 22: 21 Freq: RTQ4 Status: Active Document 11/03/17 12:13 TPO (Rec: 11/03/17 12:13 TPO [email or web address]) Pulse Oximetry Assessment Oxygen Saturation (92-100) 96 Oxygen Delivery Method Room Air Fraction of Inspired Oxygen (FIO2) 21 Equipment Usage Equipment in Use Continuous SpO2 Machine # 9 Intake & Output 11/02/17 11/03/17 11/04/17 06:59 06:59 06:59 Intake Total 3235 210 Output Total 0 Balance 3235 210 Weight 85.9 kg 87.9 kg General appearance: PRESENT: no acute distress, other - He is jaundiced and ill- appearing Head exam: PRESENT: atraumatic, normocephalic Eye exam: PRESENT: scleral icterus Mouth exam: PRESENT: moist, tongue midline Respiratory exam: PRESENT: clear to auscultation jason. ABSENT: rales, rhonchi, wheezes Cardiovascular exam: PRESENT: RRR. ABSENT: diastolic murmur, rubs, systolic murmur Pulses: PRESENT: normal dorsalis pedis pul GI/Abdominal exam: PRESENT: normal bowel sounds, soft. ABSENT: distended, guarding, mass, organolmegaly, rebound, tenderness Rectal exam: PRESENT: deferred Extremities exam: PRESENT: full ROM. ABSENT: calf tenderness, clubbing, pedal edema Neurological exam: PRESENT: other - I cannot arouse the patient this morning. He is sleeping Psychiatric exam: PRESENT: other - He appears to be quite calm Skin exam: PRESENT: dry, intact, jaundice, warm. ABSENT: cyanosis, rash Results Laboratory Results: 11/03/17 06:27 11/03/17 06:27 11/03/17 11/03/17 11/03/17 06:27 06:27 06:27 WBC 19.3 H RBC 3.09 L Hgb 10.3 L Hct 31.3 L MCV 101 H MCH 33.5 H MCHC 33.0 RDW 17.5 H Plt Count 314 Seg Neutrophils % 82.9 H Lymphocytes % 11.4 L Monocytes % 4.7 Eosinophils % 0.3 Basophils % 0.7 Absolute Neutrophils 16.0 H Absolute Lymphocytes 2.2 Absolute Monocytes 0.9 Absolute Eosinophils 0.1 Absolute Basophils 0.1 Sodium 145.4 H Potassium 5.0 Chloride 104 Carbon Dioxide 23 Anion Gap 18 BUN 22 H Creatinine 0.68 Est GFR ( Amer) > 60 Est GFR (Non-Af Amer) > 60 Glucose 120 H Calcium 10.5 H Magnesium 1.6 Total Bilirubin 7.6 H AST 301 H ALT 90 H Alkaline Phosphatase 174 H Ammonia 14.5 Total Protein 8.2 Albumin 4.3 Impressions: Chest/Abdomen CTA 10/12/17 13:46 IMPRESSION: No CT angio evidence of acute pulmonary emboli or thoracic aortic or abdominal aortic dissection or aneurysm. Hepatomegaly with recannulized umbilical vein and splenomegaly from portal hypertension. No CT evidence of portal vein, superior mesenteric vein, or hepatic vein thrombosis. No CT evidence of bowel obstruction Inflammatory changes around the distal esophagus with distal esophageal varices and inflammation in the surrounding para esophageal fat Findings discussed with Dr. Pelayo in the emergency room KUB X-Ray 10/18/17 00:00 IMPRESSION: NO RADIOGRAPHIC EVIDENCE FOR ACUTE ABDOMINAL DISEASE. Abdomen Ultrasound 10/19/17 16:29 IMPRESSION: NO EVIDENCE FOR ASCITES. Head CT 10/22/17 00:00 IMPRESSION: NORMAL BRAIN CT WITHOUT CONTRAST. EVIDENCE OF ACUTE STROKE: NO. Assessment & Plan - Diagnosis (1) Sepsis Is this a current diagnosis for this admission?: Yes Plan: Resolved. He likely had spontaneous bacterial peritonitis. At this point he is completed a course of IV antibiotics. (2) Spontaneous bacterial peritonitis Is this a current diagnosis for this admission?: Yes (3) Acute alcoholic hepatitis Is this a current diagnosis for this admission?: Yes Plan: Liver function tests are slowly trending downwards but still markedly elevated. They peaked at 15.8 on October 26, 2017 and are slowly trending downwards. Currently 7.6 today. He is on prednisone. We will continue supportive care and hopefully we can continue to improve. I will check liver panel in the morning. (4) Acute hepatic encephalopathy Is this a current diagnosis for this admission?: Yes Plan: Continue lactulose. He is improving after receiving his lactulose enema. (5) Alcohol dependence with withdrawal Qualifiers: Complication of substance-induced condition: uncomplicated Qualified Code(s ): F10.230 - Alcohol dependence with withdrawal, uncomplicated Is this a current diagnosis for this admission?: Yes Plan: At this point does not seem to be actively withdrawing anymore. This has resolved. I am going to cut back his scheduled Valium as he is quite somnolent this morning. (6) Cirrhosis Qualifiers: Hepatic cirrhosis type: alcoholic cirrhosis Is this a current diagnosis for this admission?: Yes Plan: Decompensated liver failure at this point. He needs to quit drinking. At this point the plan is for him to go to rehab as mentioned above. We need to get him medically stable first. (7) Hepatitis C Qualifiers: Viral hepatitis chronicity: chronic Is this a current diagnosis for this admission?: Yes (8) Thickening of esophagus Is this a current diagnosis for this admission?: Yes (9) Hypophosphatemia Is this a current diagnosis for this admission?: Yes Plan: Repleted and resolved (10) Hypokalemia Is this a current diagnosis for this admission?: Yes (11) Hypomagnesemia Is this a current diagnosis for this admission?: Yes (12) Hypocalcemia Is this a current diagnosis for this admission?: Yes Plan: His calcium level is somewhat high today. We will encourage him to drink plenty of water today. He likely is somewhat dehydrated (13) Coagulopathy Is this a current diagnosis for this admission?: Yes (14) Anemia Is this a current diagnosis for this admission?: Yes Plan: This is a macrocytic anemia. Related to his underlying alcohol use. Continue folic acid and thiamine. (15) Full code status Is this a current diagnosis for this admission?: Yes - Time Time Spent with patient: 15-24 minutes - Inpatient Certification Medical Necessity: Other - Inpatient hospitalization remains necessary. The patient is slowly improving. Hopefully he will be stable within the next week to be transition to an inpatient alcohol rehab program. The patient and the family want him to go to [facility]
[2017-11-03] MEDS ORDERED: LORAZEPAM INJ 2 MG/1 ML VIAL IV PRN (19:00)
[2017-11-03] MEDS: PHARMACY COMMUNICATION ORDER MC SCH (22:00)
[2017-11-04] MEDS: CLONIDINE HCL 0.1 MG TABLET PO SCH ×4 (00:21→17:49)
[2017-11-04] MEDS: LACTULOSE SYRUP 20 GM/30 ML UDCUP PO SCH ×6 (03:23→21:19)
[2017-11-04] MEDS: ONDANSETRON 4 MG TAB.RAPDIS PO PRN (03:45)
[2017-11-04 05:49] LABS: ABSOLUTE BASOPHILS # (AUTO) 0.1 10^3/uL (0.0-0.2); ABSOLUTE LYMPHOCYTES (AUTO) 1.3 10^3/uL (0.5-4.7); ABSOLUTE MONOCYTES (AUTO) 0.9 10^3/uL (0.1-1.4); ABSOLUTE NEUT (AUTO) 12.5 10^3/uL (1.7-8.2); BASOPHILS % (AUTO) 0.7 % (0-2); EOSINOPHILS % (AUTO) 0.2 % (0-6); HEMATOCRIT 27.1 % (37.9-51.0); HEMOGLOBIN 9.2 g/dL (13.5-17.0); LYMPHOCYTES % (AUTO) 9.1 % (13-45); MEAN CORPUSCULAR HEMOGLOBIN 34.4 pg (27.0-33.4); MEAN CORPUSCULAR HGB CONC 33.9 g/dL (32.0-36.0); MEAN CORPUSCULAR VOLUME 102 fl (80-97); MONOCYTES % (AUTO) 6.1 % (3-13); PLATELET COUNT 253 10^3/uL (150-450); RED BLOOD COUNT 2.67 10^6/uL (4.35-5.55); SEGMENTED NEUTROPHILS % (AUTO) 83.9 % (42-78); TOTAL CELLS COUNTED % (AUTO) 100 %; WHITE BLOOD COUNT 14.9 10^3/uL (4.0-10.5)
[2017-11-04 06:02] LABS: ANION GAP 15 (5-19); BLOOD UREA NITROGEN 19 mg/dL (7-20); CARBON DIOXIDE 24 mmol/L (22-30); CHLORIDE 106 mmol/L (98-107); GLUCOSE 117 mg/dL (75-110); POTASSIUM 4.4 mmol/L (3.6-5.0); SODIUM 145.1 mmol/L (137-145)
[2017-11-04] MEDS: GABAPENTIN 100 MG CAPSULE PO SCH ×3 (06:12→21:18)
[2017-11-04] MEDS: DIAZEPAM 5 MG TABLET PO SCH ×3 (06:13→21:18)
[2017-11-04] MEDS: PHOSPHORUS #1 250 MG TABLET PO SCH ×2 (08:48→17:49)
[2017-11-04] MEDS: LIDOCAINE 5% (700 MG) TRANSDERMAL ADH..PATCH TP SCH (10:33)
[2017-11-04] MEDS: DIVALPROEX SODIUM 250 MG TABLET.DR PO SCH ×2 (10:34→21:19)
[2017-11-04] MEDS: MAGNESIUM OXIDE 400 MG TABLET PO SCH (10:34)
[2017-11-04] MEDS: NICOTINE 21 MG/24 HR PATCH.TD24 TD SCH (10:34)
[2017-11-04] MEDS: FOLIC ACID 1 MG TABLET PO SCH (10:34)
[2017-11-04] MEDS: THIAMINE HCL 100 MG TABLET PO SCH (10:35)
[2017-11-04] MEDS: PREDNISONE 20 MG TABLET PO SCH (10:35)
[2017-11-04] MEDS: BUSPIRONE HCL 10 MG TABLET PO SCH ×2 (10:35→21:18)
[2017-11-04] MEDS: SODIUM BICARBONATE 650 MG TABLET PO SCH ×2 (10:35→21:18)
[2017-11-04] MEDS: LORAZEPAM 1 MG TABLET PO PRN ×2 (12:08→19:59)
[2017-11-04 14:39] LABS: BILIRUBIN,DIRECT 6.5 mg/dL (0.0-0.4)
[2017-11-04] MEDS: NYSTATIN 500000 UNIT/5 ML UDCUP PO SCH ×2 (17:49→21:18)
--- NOTE | 2017-11-04 19:56 | PDOC PROGRESS REPORT ---
Subjective Progress Note for:: 11/04/17 Subjective:: Doing better, no fever or chills, chest pain no shortness of breath or palpitations. Mental status much better, denies headaches, no hematemesis, no abdominal pain, no nausea vomiting. Reason For Visit: ALCOHOL WITHDRAWAL Physical Exam Vital Signs: Temp Pulse Resp BP Pulse Ox 98.7 F 95 17 136/73 H 100 11/04/17 19:37 11/04/17 19:37 11/04/17 19:37 11/04/17 19:37 11/04/17 19:37 Pulse Oximeter Continuous Start: 10/28/17 22: 21 Freq: RTQ4 Status: Active Document 11/04/17 16:40 [facility] (Rec: 11/04/17 18:37 [email or web address] Pulse Oximetry Assessment Equipment Usage Equipment Standby Continuous SpO2 Machine # 9 Intake & Output 11/03/17 11/04/17 11/05/17 06:59 06:59 06:59 Intake Total 946 444 9964 Output Total 0 Balance 226 917 5761 Weight 87.9 kg 88 kg GEN: NAD, well-developed, well-nourished CV: RRR, NL S1S2 LUNGS: CTA bilaterally ABDOMEN Soft, NT, +BS EXTERMITIES: 1-2+ pitting edema NEURO: Alert, oriented 3, no lateralizing weakness Results Laboratory Results: 11/04/17 04:58 11/04/17 04:58 11/04/17 11/04/17 04:58 04:58 WBC 14.9 H RBC 2.67 L Hgb 9.2 L Hct 27.1 L MCV 102 H MCH 34.4 H MCHC 33.9 RDW 18.0 H Plt Count 253 Seg Neutrophils % 83.9 H Lymphocytes % 9.1 L Monocytes % 6.1 Eosinophils % 0.2 Basophils % 0.7 Absolute Neutrophils 12.5 H Absolute Lymphocytes 1.3 Absolute Monocytes 0.9 Absolute Eosinophils 0.0 Absolute Basophils 0.1 Sodium 145.1 H Potassium 4.4 Chloride 106 Carbon Dioxide 24 Anion Gap 15 BUN 19 Creatinine 0.56 Est GFR ( Amer) > 60 Est GFR (Non-Af Amer) > 60 Glucose 117 H Calcium 10.0 Magnesium 1.5 L Impressions: Chest/Abdomen CTA 10/12/17 13:46 IMPRESSION: No CT angio evidence of acute pulmonary emboli or thoracic aortic or abdominal aortic dissection or aneurysm. Hepatomegaly with recannulized umbilical vein and splenomegaly from portal hypertension. No CT evidence of portal vein, superior mesenteric vein, or hepatic vein thrombosis. No CT evidence of bowel obstruction Inflammatory changes around the distal esophagus with distal esophageal varices and inflammation in the surrounding para esophageal fat Findings discussed with Dr. Pelayo in the emergency room KUB X-Ray 10/18/17 00:00 IMPRESSION: NO RADIOGRAPHIC EVIDENCE FOR ACUTE ABDOMINAL DISEASE. Abdomen Ultrasound 10/19/17 16:29 IMPRESSION: NO EVIDENCE FOR ASCITES. Head CT 10/22/17 00:00 IMPRESSION: NORMAL BRAIN CT WITHOUT CONTRAST. EVIDENCE OF ACUTE STROKE: NO. Assessment & Plan - Plan Summary Plan Summary: (1) Sepsis Is this a current diagnosis for this admission?: Yes Plan: Resolved. He likely had spontaneous bacterial peritonitis. At this point he has completed a course of IV antibiotics. (2) Spontaneous bacterial peritonitis Is this a current diagnosis for this admission?: Yes (3) Acute alcoholic hepatitis Is this a current diagnosis for this admission?: Yes Plan: Liver function tests are slowly trending downwards but still markedly elevated. The bilirubin peaked at 15.8 on October 26, 2017 and are slowly trending downwards. Currently 7.6 yesday--we will follow-up in a.m. He is on prednisone. We will continue supportive care and hopefully he can continue to improve. (4) Acute hepatic encephalopathy Is this a current diagnosis for this admission?: Yes Plan: Continue lactulose. He is improving after receiving his lactulose enema. (5) Alcohol dependence with withdrawal Qualifiers: Complication of substance-induced condition: uncomplicated Qualified Code(s ): F10.230 - Alcohol dependence with withdrawal, uncomplicated Is this a current diagnosis for this admission?: Yes Plan: At this point does not seem to be actively withdrawing at this time. Change Ativan to only as needed. (6) Cirrhosis Qualifiers: Hepatic cirrhosis type: alcoholic cirrhosis Is this a current diagnosis for this admission?: Yes Plan: Decompensated liver failure at this point. He needs to quit drinking. At this point the plan is for him to go to rehab when he is medically stable first. (7) Hepatitis C Qualifiers: Viral hepatitis chronicity: chronic Is this a current diagnosis for this admission?: Yes (8) Thickening of esophagus Is this a current diagnosis for this admission?: Yes (9) Hypomagnesemia Is this a current diagnosis for this admission?: Yes (12) Hypocalcemia Is this a current diagnosis for this admission?: Yes Plan: Improved (13) Coagulopathy Is this a current diagnosis for this admission?: Yes Secondary to cirrhosis. Improving. (14) Anemia Is this a current diagnosis for this admission?: Yes Plan: This is a macrocytic anemia. Related to his underlying alcohol use. Continue folic acid and thiamine.
[2017-11-04] MEDS: PHARMACY COMMUNICATION ORDER MC SCH (21:18)
[2017-11-05] MEDS: CLONIDINE HCL 0.1 MG TABLET PO SCH ×5 (00:03→23:05)
[2017-11-05] MEDS: LACTULOSE SYRUP 20 GM/30 ML UDCUP PO SCH ×6 (01:44→21:13)
[2017-11-05] MEDS: DIAZEPAM 5 MG TABLET PO SCH ×3 (05:47→21:13)
[2017-11-05] MEDS: GABAPENTIN 100 MG CAPSULE PO SCH ×3 (05:47→21:13)
[2017-11-05 06:25] LABS: ABSOLUTE BASOPHILS # (AUTO) 0.1 10^3/uL (0.0-0.2); ABSOLUTE EOSINOPHILS # (AUTO) 0.1 10^3/uL (0.0-0.6); ABSOLUTE LYMPHOCYTES (AUTO) 1.6 10^3/uL (0.5-4.7); BASOPHILS % (AUTO) 0.5 % (0-2); EOSINOPHILS % (AUTO) 0.5 % (0-6); HEMATOCRIT 27.4 % (37.9-51.0); HEMOGLOBIN 9.1 g/dL (13.5-17.0); LYMPHOCYTES % (AUTO) 10.9 % (13-45); MEAN CORPUSCULAR HEMOGLOBIN 33.7 pg (27.0-33.4); MEAN CORPUSCULAR HGB CONC 33.3 g/dL (32.0-36.0); MEAN CORPUSCULAR VOLUME 101 fl (80-97); MONOCYTES % (AUTO) 6.6 % (3-13); PLATELET COUNT 242 10^3/uL (150-450); RED CELL DISTRIBUTION WIDTH 17.7 % (11.5-14.0); SEGMENTED NEUTROPHILS % (AUTO) 81.5 % (42-78); TOTAL CELLS COUNTED % (AUTO) 100 %; WHITE BLOOD COUNT 14.7 10^3/uL (4.0-10.5)
[2017-11-05 06:56] LABS: ALANINE AMINOTRANSFERASE 88 U/L (21-72); ALBUMIN 3.6 g/dL (3.5-5.0); ALKALINE PHOSPHATASE 135 U/L (38-126); ANION GAP 17 (5-19); ASPARTATE AMINO TRANSFERASE 251 U/L (17-59); BILIRUBIN,DIRECT 4.5 mg/dL (0.0-0.4); BILIRUBIN,TOTAL 5.4 mg/dL (0.2-1.3); BLOOD UREA NITROGEN 19 mg/dL (7-20); CALCIUM 9.7 mg/dL (8.4-10.2); CARBON DIOXIDE 21 mmol/L (22-30); CHLORIDE 106 mmol/L (98-107); GLUCOSE 100 mg/dL (75-110); POTASSIUM 4.2 mmol/L (3.6-5.0); SODIUM 143.7 mmol/L (137-145); TOTAL PROTEIN 6.7 g/dL (6.3-8.2)
[2017-11-05] MEDS: LORAZEPAM 1 MG TABLET PO PRN ×2 (08:05→16:07)
[2017-11-05] MEDS: PHOSPHORUS #1 250 MG TABLET PO SCH ×2 (08:05→16:07)
[2017-11-05] MEDS: SODIUM BICARBONATE 650 MG TABLET PO SCH ×2 (10:58→21:13)
[2017-11-05] MEDS: MAGNESIUM OXIDE 400 MG TABLET PO SCH (10:58)
[2017-11-05] MEDS: PREDNISONE 20 MG TABLET PO SCH (10:58)
[2017-11-05] MEDS: THIAMINE HCL 100 MG TABLET PO SCH (10:58)
[2017-11-05] MEDS: LIDOCAINE 5% (700 MG) TRANSDERMAL ADH..PATCH TP SCH (10:58)
[2017-11-05] MEDS: NYSTATIN 500000 UNIT/5 ML UDCUP PO SCH ×4 (10:58→21:13)
[2017-11-05] MEDS: NICOTINE 21 MG/24 HR PATCH.TD24 TD SCH (10:58)
[2017-11-05] MEDS: DIVALPROEX SODIUM 250 MG TABLET.DR PO SCH ×2 (10:58→21:15)
[2017-11-05] MEDS: FOLIC ACID 1 MG TABLET PO SCH (10:58)
[2017-11-05] MEDS: BUSPIRONE HCL 10 MG TABLET PO SCH ×2 (11:03→21:13)
--- NOTE | 2017-11-05 11:45 | PDOC PROGRESS REPORT ---
Subjective Progress Note for:: 11/05/17 Subjective:: Continues doing better, no fever or chills, chest pain no shortness of breath or palpitations. Mental status remains improved, denies headaches, no hematemesis, no abdominal pain, no nausea vomiting. Reason For Visit: ALCOHOL WITHDRAWAL Physical Exam Vital Signs: Temp Pulse Resp BP Pulse Ox 97.6 F 83 16 117/86 H 100 11/05/17 07:26 11/05/17 07:26 11/05/17 07:26 11/05/17 07:26 11/05/17 08:00 Pulse Oximeter Continuous Start: 10/28/17 22: 21 Freq: RTQ4 Status: Active Document 11/05/17 08:00 [facility] (Rec: 11/05/17 08:41 [facility] [email or web address]) Pulse Oximetry Assessment Oxygen Saturation (92-100) 100 Oxygen Delivery Method Room Air Fraction of Inspired Oxygen (FIO2) 21 Equipment Usage Equipment Standby Continuous SpO2 Machine # 9 Intake & Output 11/04/17 11/05/17 11/06/17 06:59 06:59 06:59 Intake Total 612 2292 Balance 612 2292 Weight 88 kg 87.9 kg GEN: NAD, well-developed, well-nourished CV: RRR, NL S1S2 LUNGS: CTA bilaterally ABDOMEN Soft, NT, +BS EXTERMITIES: 1+ pitting edema NEURO: Alert, oriented 3, no lateralizing weakness Results Laboratory Results: 11/05/17 05:42 11/05/17 05:42 11/05/17 11/05/17 11/05/17 05:42 05:42 05:42 WBC 14.7 H RBC 2.70 L Hgb 9.1 L Hct 27.4 L MCV 101 H MCH 33.7 H MCHC 33.3 RDW 17.7 H Plt Count 242 Seg Neutrophils % 81.5 H Lymphocytes % 10.9 L Monocytes % 6.6 Eosinophils % 0.5 Basophils % 0.5 Absolute Neutrophils 12.0 H Absolute Lymphocytes 1.6 Absolute Monocytes 1.0 Absolute Eosinophils 0.1 Absolute Basophils 0.1 Sodium 143.7 Potassium 4.2 Chloride 106 Carbon Dioxide 21 L Anion Gap 17 BUN 19 Creatinine 0.53 Est GFR ( Amer) > 60 Est GFR (Non-Af Amer) > 60 Glucose 100 Calcium 9.7 Magnesium 1.3 L Total Bilirubin 5.4 H AST 251 H ALT 88 H Alkaline Phosphatase 135 H Ammonia 58.4 H Total Protein 6.7 Albumin 3.6 Impressions: Chest/Abdomen CTA 10/12/17 13:46 IMPRESSION: No CT angio evidence of acute pulmonary emboli or thoracic aortic or abdominal aortic dissection or aneurysm. Hepatomegaly with recannulized umbilical vein and splenomegaly from portal hypertension. No CT evidence of portal vein, superior mesenteric vein, or hepatic vein thrombosis. No CT evidence of bowel obstruction Inflammatory changes around the distal esophagus with distal esophageal varices and inflammation in the surrounding para esophageal fat Findings discussed with Dr. Pelayo in the emergency room KUB X-Ray 10/18/17 00:00 IMPRESSION: NO RADIOGRAPHIC EVIDENCE FOR ACUTE ABDOMINAL DISEASE. Abdomen Ultrasound 10/19/17 16:29 IMPRESSION: NO EVIDENCE FOR ASCITES. Head CT 10/22/17 00:00 IMPRESSION: NORMAL BRAIN CT WITHOUT CONTRAST. EVIDENCE OF ACUTE STROKE: NO. Assessment & Plan - Plan Summary Plan Summary: (1) Sepsis Is this a current diagnosis for this admission?: Yes Plan: Resolved. He likely had spontaneous bacterial peritonitis. At this point he has completed a course of IV antibiotics. (2) Spontaneous bacterial peritonitis Is this a current diagnosis for this admission?: Yes (3) Acute alcoholic hepatitis Is this a current diagnosis for this admission?: Yes Plan: Liver function tests are slowly trending downwards but still markedly elevated. The bilirubin peaked at 15.8 on October 26, 2017 and are slowly trending downwards. Currently 4.8 today. He is on prednisone. We will continue supportive care and hopefully he can continue to improve. (4) Acute hepatic encephalopathy Is this a current diagnosis for this admission?: Yes Plan: Continue lactulose. He is improving after receiving his lactulose enema. (5) Alcohol dependence with withdrawal Qualifiers: Complication of substance-induced condition: uncomplicated Qualified Code(s ): F10.230 - Alcohol dependence with withdrawal, uncomplicated Is this a current diagnosis for this admission?: Yes Plan: At this point does not seem to be actively withdrawing at this time. Continue Ativan at po as needed. (6) Cirrhosis Qualifiers: Hepatic cirrhosis type: alcoholic cirrhosis Is this a current diagnosis for this admission?: Yes Plan: Decompensated liver failure at this point. He needs to quit drinking. At this point the plan is for him to go to rehab when he is medically stable first. (7) Hepatitis C Qualifiers: Viral hepatitis chronicity: chronic Is this a current diagnosis for this admission?: Yes (8) Thickening of esophagus Is this a current diagnosis for this admission?: Yes (9) Hypomagnesemia Is this a current diagnosis for this admission?: Yes Continue to replete (12) Hypocalcemia Is this a current diagnosis for this admission?: Yes Plan: Improved (13) Coagulopathy Is this a current diagnosis for this admission?: Yes Secondary to cirrhosis. Improving. (14) Anemia Is this a current diagnosis for this admission?: Yes Plan: This is a macrocytic anemia. Related to his underlying alcohol use. Continue folic acid and thiamine.
[2017-11-05] MEDS: PHARMACY COMMUNICATION ORDER MC SCH (21:51)
[2017-11-06] MEDS: LORAZEPAM 1 MG TABLET PO PRN ×3 (00:01→15:47)
[2017-11-06] MEDS: LACTULOSE SYRUP 20 GM/30 ML UDCUP PO SCH ×6 (01:26→21:14)
[2017-11-06] MEDS: CLONIDINE HCL 0.1 MG TABLET PO SCH ×3 (05:09→17:20)
[2017-11-06] MEDS: DIAZEPAM 5 MG TABLET PO SCH ×3 (05:09→21:14)
[2017-11-06] MEDS: GABAPENTIN 100 MG CAPSULE PO SCH ×3 (05:09→21:14)
[2017-11-06 06:28] LABS: ABSOLUTE BASOPHILS # (AUTO) 0.2 10^3/uL (0.0-0.2); ABSOLUTE EOSINOPHILS # (AUTO) 0.1 10^3/uL (0.0-0.6); ABSOLUTE MONOCYTES (AUTO) 0.8 10^3/uL (0.1-1.4); ABSOLUTE NEUT (AUTO) 13.9 10^3/uL (1.7-8.2); EOSINOPHILS % (AUTO) 0.5 % (0-6); HEMATOCRIT 31.4 % (37.9-51.0); HEMOGLOBIN 10.4 g/dL (13.5-17.0); LYMPHOCYTES % (AUTO) 11.8 % (13-45); MEAN CORPUSCULAR HEMOGLOBIN 33.7 pg (27.0-33.4); MEAN CORPUSCULAR HGB CONC 33.2 g/dL (32.0-36.0); MEAN CORPUSCULAR VOLUME 101 fl (80-97); MONOCYTES % (AUTO) 4.5 % (3-13); PLATELET COUNT 273 10^3/uL (150-450); RED BLOOD COUNT 3.09 10^6/uL (4.35-5.55); SEGMENTED NEUTROPHILS % (AUTO) 82.2 % (42-78); TOTAL CELLS COUNTED % (AUTO) 100 %; WHITE BLOOD COUNT 16.9 10^3/uL (4.0-10.5)
[2017-11-06 06:47] LABS: INTERNATIONAL RATION (INR) 1.01; PROTHROMBIN TIME 13.8 SEC (11.4-15.4)
[2017-11-06 07:08] LABS: ALANINE AMINOTRANSFERASE 105 U/L (21-72); ALBUMIN 4.1 g/dL (3.5-5.0); ALKALINE PHOSPHATASE 154 U/L (38-126); ASPARTATE AMINO TRANSFERASE 269 U/L (17-59); BILIRUBIN,TOTAL 5.8 mg/dL (0.2-1.3); BLOOD UREA NITROGEN 18 mg/dL (7-20); GLUCOSE 106 mg/dL (75-110); POTASSIUM 4.5 mmol/L (3.6-5.0); TOTAL PROTEIN 7.7 g/dL (6.3-8.2)
[2017-11-06 07:13] LABS: ANION GAP 18 (5-19); CARBON DIOXIDE 22 mmol/L (22-30); CHLORIDE 107 mmol/L (98-107); SODIUM 147.4 mmol/L (137-145)
[2017-11-06] MEDS: PHOSPHORUS #1 250 MG TABLET PO SCH ×2 (07:31→15:47)
[2017-11-06] MEDS: DIVALPROEX SODIUM 250 MG TABLET.DR PO SCH ×2 (09:28→21:15)
[2017-11-06] MEDS: PREDNISONE 20 MG TABLET PO SCH (09:28)
[2017-11-06] MEDS: FOLIC ACID 1 MG TABLET PO SCH (09:28)
[2017-11-06] MEDS: SODIUM BICARBONATE 650 MG TABLET PO SCH ×2 (09:28→21:14)
[2017-11-06] MEDS: BUSPIRONE HCL 10 MG TABLET PO SCH ×2 (09:29→21:15)
[2017-11-06] MEDS: NYSTATIN 500000 UNIT/5 ML UDCUP PO SCH ×4 (09:29→21:14)
[2017-11-06] MEDS: THIAMINE HCL 100 MG TABLET PO SCH (09:29)
[2017-11-06] MEDS: MAGNESIUM OXIDE 400 MG TABLET PO SCH (09:29)
[2017-11-06] MEDS: NICOTINE 21 MG/24 HR PATCH.TD24 TD SCH (09:30)
[2017-11-06] MEDS: LIDOCAINE 5% (700 MG) TRANSDERMAL ADH..PATCH TP SCH (09:30)
--- NOTE | 2017-11-06 15:38 | PDOC PROGRESS REPORT ---
Subjective Progress Note for:: 11/06/17 Subjective:: Continues to do better, no fever or chills, no chest pain or shortness of breath or palpitations. Mother at bedside. Mental status remains improved, denies headaches, no hematemesis, no abdominal pain, no nausea vomiting. Reason For Visit: ALCOHOL WITHDRAWAL Physical Exam Vital Signs: Temp Pulse Resp BP Pulse Ox 97.7 F 98 12 126/72 H 100 11/06/17 11:24 11/06/17 14:00 11/06/17 11:24 11/06/17 11:24 11/06/17 14:55 Pulse Oximeter Continuous Start: 10/28/17 22: 21 Freq: RTQ4 Status: Active Document 11/06/17 14:55 TPO (Rec: 11/06/17 14:55 TPO [email or web address]) Pulse Oximetry Assessment Oxygen Saturation (92-100) 100 Oxygen Delivery Method Room Air Fraction of Inspired Oxygen (FIO2) 21 Equipment Usage Equipment Standby Continuous SpO2 Machine # 9 Intake & Output 11/05/17 11/06/17 11/07/17 06:59 06:59 06:59 Intake Total 2292 1292 236 Output Total 0 Balance 2292 1292 236 Weight 87.9 kg 88.2 kg GEN: NAD, well-developed, well-nourished CV: RRR, NL S1S2 LUNGS: CTA bilaterally ABDOMEN Soft, NT, +BS EXTERMITIES: 1+ pitting edema NEURO: Alert, oriented 3, no lateralizing weakness Results Laboratory Results: 11/06/17 06:00 11/06/17 06:00 11/06/17 11/06/17 06:00 06:00 WBC 16.9 H RBC 3.09 L Hgb 10.4 L Hct 31.4 L MCV 101 H MCH 33.7 H MCHC 33.2 RDW 18.0 H Plt Count 273 Seg Neutrophils % 82.2 H Lymphocytes % 11.8 L Monocytes % 4.5 Eosinophils % 0.5 Basophils % 1.0 Absolute Neutrophils 13.9 H Absolute Lymphocytes 2.0 Absolute Monocytes 0.8 Absolute Eosinophils 0.1 Absolute Basophils 0.2 Sodium 147.4 H Potassium 4.5 Chloride 107 Carbon Dioxide 22 Anion Gap 18 BUN 18 Creatinine 0.59 Est GFR ( Amer) > 60 Est GFR (Non-Af Amer) > 60 Glucose 106 Calcium 10.0 Total Bilirubin 5.8 H AST 269 H ALT 105 H Alkaline Phosphatase 154 H Total Protein 7.7 Albumin 4.1 Impressions: Chest/Abdomen CTA 10/12/17 13:46 IMPRESSION: No CT angio evidence of acute pulmonary emboli or thoracic aortic or abdominal aortic dissection or aneurysm. Hepatomegaly with recannulized umbilical vein and splenomegaly from portal hypertension. No CT evidence of portal vein, superior mesenteric vein, or hepatic vein thrombosis. No CT evidence of bowel obstruction Inflammatory changes around the distal esophagus with distal esophageal varices and inflammation in the surrounding para esophageal fat Findings discussed with Dr. Pelayo in the emergency room KUB X-Ray 10/18/17 00:00 IMPRESSION: NO RADIOGRAPHIC EVIDENCE FOR ACUTE ABDOMINAL DISEASE. Abdomen Ultrasound 10/19/17 16:29 IMPRESSION: NO EVIDENCE FOR ASCITES. Head CT 10/22/17 00:00 IMPRESSION: NORMAL BRAIN CT WITHOUT CONTRAST. EVIDENCE OF ACUTE STROKE: NO. Assessment & Plan - Plan Summary Plan Summary: (1) Sepsis Is this a current diagnosis for this admission?: Yes Plan: Resolved. This was likely had spontaneous bacterial peritonitis. At this point he has completed a course of IV antibiotics. (2) Spontaneous bacterial peritonitis Is this a current diagnosis for this admission?: Yes (3) Acute alcoholic hepatitis Is this a current diagnosis for this admission?: Yes Plan: Liver function tests are slowly trending downwards but still markedly elevated, although there is a slight bump today. The bilirubin peaked at 15.8 on October 26, 2017 and are slowly trending downwards/stabilizing. He is on prednisone 30 mg daily. Will titrate down to 10 mg daily. We will continue supportive care and hopefully he can continue to improve. (4) Acute hepatic encephalopathy Is this a current diagnosis for this admission?: Yes Plan: Continue lactulose. He is improving after receiving his lactulose enema. (5) Alcohol dependence with withdrawal Qualifiers: Complication of substance-induced condition: uncomplicated Qualified Code(s ): F10.230 - Alcohol dependence with withdrawal, uncomplicated Is this a current diagnosis for this admission?: Yes Plan: At this point does not seem to be actively withdrawing at this time. Continue Ativan at po as needed. (6) Cirrhosis Qualifiers: Hepatic cirrhosis type: alcoholic cirrhosis Is this a current diagnosis for this admission?: Yes Plan: Decompensated liver failure at this point. He needs to quit drinking. At this point the plan is for him to go to rehab when he is medically stable first. (7) Hepatitis C Qualifiers: Viral hepatitis chronicity: chronic Is this a current diagnosis for this admission?: Yes (8) Thickening of esophagus Is this a current diagnosis for this admission?: Yes (9) Hypomagnesemia Is this a current diagnosis for this admission?: Yes Continue to replete (12) Hypocalcemia Is this a current diagnosis for this admission?: Yes Plan: Improved (13) Coagulopathy Is this a current diagnosis for this admission?: Yes Secondary to cirrhosis. Improving. (14) Anemia Is this a current diagnosis for this admission?: Yes Plan: This is a macrocytic anemia. Related to his underlying alcohol use. Continue folic acid and thiamine.
[2017-11-06] MEDS ORDERED: PREDNISONE 20 MG TABLET PO SCH (15:39)
[2017-11-06] MEDS: ONDANSETRON 4 MG TAB.RAPDIS PO PRN (21:14)
[2017-11-06] MEDS: PHARMACY COMMUNICATION ORDER MC SCH (21:16)
[2017-11-07] MEDS: LORAZEPAM 1 MG TABLET PO PRN ×3 (00:01→18:14)
[2017-11-07] MEDS: CLONIDINE HCL 0.1 MG TABLET PO SCH ×5 (00:01→23:31)
[2017-11-07] MEDS: LACTULOSE SYRUP 20 GM/30 ML UDCUP PO SCH ×6 (01:50→21:18)
[2017-11-07] MEDS: DIAZEPAM 5 MG TABLET PO SCH ×2 (05:01→13:39)
[2017-11-07] MEDS: GABAPENTIN 100 MG CAPSULE PO SCH ×3 (05:01→21:18)
[2017-11-07 05:26] LABS: ALANINE AMINOTRANSFERASE 83 U/L (21-72); ALBUMIN 3.3 g/dL (3.5-5.0); ALKALINE PHOSPHATASE 123 U/L (38-126); ASPARTATE AMINO TRANSFERASE 179 U/L (17-59); BILIRUBIN,DIRECT 3.8 mg/dL (0.0-0.4); BILIRUBIN,TOTAL 4.4 mg/dL (0.2-1.3); TOTAL PROTEIN 6.2 g/dL (6.3-8.2)
[2017-11-07] MEDS: PHOSPHORUS #1 250 MG TABLET PO SCH ×2 (08:30→16:02)
[2017-11-07] MEDS: SODIUM BICARBONATE 650 MG TABLET PO SCH ×2 (09:50→21:18)
[2017-11-07] MEDS: BUSPIRONE HCL 10 MG TABLET PO SCH ×2 (09:50→21:18)
[2017-11-07] MEDS: PREDNISONE 10 MG TABLET PO SCH (09:50)
[2017-11-07] MEDS: DIVALPROEX SODIUM 250 MG TABLET.DR PO SCH ×2 (09:50→21:19)
[2017-11-07] MEDS: THIAMINE HCL 100 MG TABLET PO SCH (09:50)
[2017-11-07] MEDS: MAGNESIUM OXIDE 400 MG TABLET PO SCH (09:50)
[2017-11-07] MEDS: FOLIC ACID 1 MG TABLET PO SCH (09:50)
[2017-11-07] MEDS: NYSTATIN 500000 UNIT/5 ML UDCUP PO SCH ×4 (09:51→21:17)
[2017-11-07] MEDS: NICOTINE 21 MG/24 HR PATCH.TD24 TD SCH (09:51)
[2017-11-07] MEDS: LIDOCAINE 5% (700 MG) TRANSDERMAL ADH..PATCH TP SCH (09:51)
--- NOTE | 2017-11-07 17:58 | PDOC PROGRESS REPORT ---
Subjective Progress Note for:: 11/07/17 Subjective:: 32-year-old male with a past medical history for alcohol abuse, untreated hepatitis C and currently has decompensated liver failure and acute alcoholic hepatitis. He was treated with steroids. There was discussions with [facility] about a potential transfer. They did not feel that they have anything to offer. He is doing better now his LFTs improving, and his mental status continually improving. Has been titrated off benzos way. Today he denies fever or chills, no chest pain or shortness of breath or palpitations. Mother at bedside. Mental status remains improved, denies headaches, no hematemesis, no abdominal pain, no nausea vomiting. Reason For Visit: ALCOHOL WITHDRAWAL Physical Exam Vital Signs: Temp Pulse Resp BP Pulse Ox 98.7 F 95 22 H 127/71 H 98 11/07/17 15:15 11/07/17 15:15 11/07/17 15:15 11/07/17 15:15 11/07/17 15:15 Pulse Oximeter Continuous Start: 10/28/17 22: 21 Freq: RTQ4 Status: Complete Document 11/07/17 04:00 HCR (Rec: 11/07/17 06:00 HCR [email or web address]) Pulse Oximetry Assessment Oxygen Saturation (92-100) 95 Oxygen Delivery Method Room Air Fraction of Inspired Oxygen (FIO2) 21 Equipment Usage Equipment Standby Continuous SpO2 Machine # 9 Intake & Output 11/06/17 11/07/17 11/08/17 06:59 06:59 06:59 Intake Total 1292 955 710 Output Total 0 Balance 1292 955 710 Weight 88.2 kg 89.8 kg Results Laboratory Results: 11/06/17 06:00 11/06/17 06:00 11/07/17 04:53 Total Bilirubin 4.4 H AST 179 H ALT 83 H Alkaline Phosphatase 123 Total Protein 6.2 L Albumin 3.3 L GEN: NAD, well-developed, well-nourished CV: RRR, NL S1S2 LUNGS: CTA bilaterally ABDOMEN Soft, NT, +BS EXTERMITIES: 1+ pitting edema NEURO: Alert, oriented 3, no lateralizing weakness Impressions: Chest/Abdomen CTA 10/12/17 13:46 IMPRESSION: No CT angio evidence of acute pulmonary emboli or thoracic aortic or abdominal aortic dissection or aneurysm. Hepatomegaly with recannulized umbilical vein and splenomegaly from portal hypertension. No CT evidence of portal vein, superior mesenteric vein, or hepatic vein thrombosis. No CT evidence of bowel obstruction Inflammatory changes around the distal esophagus with distal esophageal varices and inflammation in the surrounding para esophageal fat Findings discussed with Dr. Pelayo in the emergency room KUB X-Ray 10/18/17 00:00 IMPRESSION: NO RADIOGRAPHIC EVIDENCE FOR ACUTE ABDOMINAL DISEASE. Abdomen Ultrasound 10/19/17 16:29 IMPRESSION: NO EVIDENCE FOR ASCITES. Head CT 10/22/17 00:00 IMPRESSION: NORMAL BRAIN CT WITHOUT CONTRAST. EVIDENCE OF ACUTE STROKE: NO. Assessment & Plan - Plan Summary Plan Summary: (1) Sepsis Is this a current diagnosis for this admission?: Yes Plan: Resolved. He likely had spontaneous bacterial peritonitis. At this point he has completed a course of IV antibiotics. (2) Spontaneous bacterial peritonitis Is this a current diagnosis for this admission?: Yes (3) Acute alcoholic hepatitis Is this a current diagnosis for this admission?: Yes Plan: Liver function tests are slowly trending downwards but still markedly elevated. The bilirubin peaked at 15.8 on October 26, 2017 and are slowly trending downwards /stabilizing. He was on prednisone 30 mg daily, but I have titrated down to 10mg daily by 11/06/17. Consider discontinuing the next few days. We will continue supportive care and hopefully he can continue to improve. (4) Acute hepatic encephalopathy Is this a current diagnosis for this admission?: Yes Plan: Continue lactulose. (5) Alcohol dependence with withdrawal Qualifiers: Complication of substance-induced condition: uncomplicated Qualified Code(s ): F10.230 - Alcohol dependence with withdrawal, uncomplicated Is this a current diagnosis for this admission?: Yes Plan: At this point does not seem to be actively withdrawing at this time. Patient asking for benzos. These need to be discontinued especially as he is interested in inpatient rehab. Will discontinue Valium which she was on 3 times a day. Continue Ativan at po as needed for now but is informed this is to be titrated off. (6) Cirrhosis Qualifiers: Hepatic cirrhosis type: alcoholic cirrhosis Is this a current diagnosis for this admission?: Yes Plan: Decompensated liver failure at this point. He needs to quit drinking. At this point the plan is for him to go to rehab when he is medically stable. He has markedly improved and social work faculty member to see if we could find any place that would accept him. (7) Hepatitis C Qualifiers: Viral hepatitis chronicity: chronic Is this a current diagnosis for this admission?: Yes (8) Thickening of esophagus Is this a current diagnosis for this admission?: Yes (9) Hypomagnesemia Is this a current diagnosis for this admission?: Yes Continue to replete (12) Hypocalcemia Is this a current diagnosis for this admission?: Yes Plan: Improved (13) Coagulopathy Is this a current diagnosis for this admission?: Yes Secondary to cirrhosis. Improving. (14) Anemia Is this a current diagnosis for this admission?: Yes Plan: This is a macrocytic anemia. Related to his underlying alcohol use. Continue folic acid and thiamine.
[2017-11-07] MEDS: PHARMACY COMMUNICATION ORDER MC SCH (21:19)
[2017-11-08] MEDS: LACTULOSE SYRUP 20 GM/30 ML UDCUP PO SCH ×6 (02:13→21:09)
[2017-11-08] MEDS: CLONIDINE HCL 0.1 MG TABLET PO SCH ×3 (05:29→21:10)
[2017-11-08] MEDS: GABAPENTIN 100 MG CAPSULE PO SCH ×3 (05:29→21:10)
[2017-11-08 06:31] LABS: ABSOLUTE BASOPHILS # (AUTO) 0.1 10^3/uL (0.0-0.2); ABSOLUTE EOSINOPHILS # (AUTO) 0.2 10^3/uL (0.0-0.6); ABSOLUTE LYMPHOCYTES (AUTO) 2.4 10^3/uL (0.5-4.7); ABSOLUTE MONOCYTES (AUTO) 0.8 10^3/uL (0.1-1.4); ABSOLUTE NEUT (AUTO) 13.7 10^3/uL (1.7-8.2); BASOPHILS % (AUTO) 0.9 % (0-2); HEMATOCRIT 29.1 % (37.9-51.0); HEMOGLOBIN 9.8 g/dL (13.5-17.0); LYMPHOCYTES % (AUTO) 14.1 % (13-45); MEAN CORPUSCULAR HEMOGLOBIN 34.8 pg (27.0-33.4); MEAN CORPUSCULAR HGB CONC 33.7 g/dL (32.0-36.0); MEAN CORPUSCULAR VOLUME 103 fl (80-97); MONOCYTES % (AUTO) 4.4 % (3-13); PLATELET COUNT 213 10^3/uL (150-450); RED BLOOD COUNT 2.83 10^6/uL (4.35-5.55); RED CELL DISTRIBUTION WIDTH 18.6 % (11.5-14.0); SEGMENTED NEUTROPHILS % (AUTO) 79.6 % (42-78); TOTAL CELLS COUNTED % (AUTO) 100 %; WHITE BLOOD COUNT 17.2 10^3/uL (4.0-10.5)
[2017-11-08 06:52] LABS: ALANINE AMINOTRANSFERASE 92 U/L (21-72); ALKALINE PHOSPHATASE 140 U/L (38-126); ANION GAP 17 (5-19); ASPARTATE AMINO TRANSFERASE 234 U/L (17-59); BILIRUBIN,DIRECT 4.3 mg/dL (0.0-0.4); BILIRUBIN,TOTAL 5.1 mg/dL (0.2-1.3); BLOOD UREA NITROGEN 17 mg/dL (7-20); CALCIUM 9.7 mg/dL (8.4-10.2); CARBON DIOXIDE 24 mmol/L (22-30); CHLORIDE 105 mmol/L (98-107); GLUCOSE 94 mg/dL (75-110); POTASSIUM 4.5 mmol/L (3.6-5.0); SODIUM 146.3 mmol/L (137-145); TOTAL PROTEIN 7.4 g/dL (6.3-8.2)
[2017-11-08] MEDS: PHOSPHORUS #1 250 MG TABLET PO SCH (08:42)
[2017-11-08] MEDS: LORAZEPAM 1 MG TABLET PO PRN (08:45)
[2017-11-08] MEDS: LIDOCAINE 5% (700 MG) TRANSDERMAL ADH..PATCH TP SCH (11:20)
[2017-11-08] MEDS: NICOTINE 21 MG/24 HR PATCH.TD24 TD SCH (11:20)
[2017-11-08] MEDS: NYSTATIN 500000 UNIT/5 ML UDCUP PO SCH ×4 (11:21→21:11)
[2017-11-08] MEDS: THIAMINE HCL 100 MG TABLET PO SCH (11:22)
[2017-11-08] MEDS: PREDNISONE 10 MG TABLET PO SCH (11:22)
[2017-11-08] MEDS: DIVALPROEX SODIUM 250 MG TABLET.DR PO SCH ×2 (11:22→21:12)
[2017-11-08] MEDS: FOLIC ACID 1 MG TABLET PO SCH (11:22)
[2017-11-08] MEDS: MAGNESIUM OXIDE 400 MG TABLET PO SCH (11:23)
[2017-11-08] MEDS: SODIUM BICARBONATE 650 MG TABLET PO SCH (11:23)
[2017-11-08] MEDS: BUSPIRONE HCL 10 MG TABLET PO SCH (11:23)
[2017-11-08] MEDS ORDERED: LORAZEPAM 1 MG TABLET PO PRN (12:57)
--- NOTE | 2017-11-08 13:04 | PDOC PROGRESS REPORT ---
Subjective Progress Note for:: 11/08/17 Subjective:: Patient is doing fairly well He has no fever no chills no headache He is awaiting transfer to inpatient alcohol rehab He mentions that he has gained about 10 pounds and has some swelling of his lower extremities No abdominal pain no nausea no vomiting is tolerating the diet very well Reason For Visit: ALCOHOL WITHDRAWAL Physical Exam Vital Signs: Temp Pulse Resp BP Pulse Ox 98.7 F 107 H 18 135/77 H 98 11/08/17 11:36 11/08/17 11:36 11/08/17 11:36 11/08/17 11:36 11/08/17 11:36 Pulse Oximeter Continuous Start: 10/28/17 22: 21 Freq: RTQ4 Status: Complete Document 11/07/17 04:00 HCR (Rec: 11/07/17 06:00 HCR [email or web address]) Pulse Oximetry Assessment Oxygen Saturation (92-100) 95 Oxygen Delivery Method Room Air Fraction of Inspired Oxygen (FIO2) 21 Equipment Usage Equipment Standby Continuous SpO2 Machine # 9 Intake & Output 11/07/17 11/08/17 11/09/17 00:59 00:59 00:59 Intake Total 1119 1830 1055 Balance 1119 1830 1055 Weight 88.2 kg 89.8 kg 91 kg General appearance: PRESENT: no acute distress, well-developed, well-nourished Head exam: PRESENT: atraumatic, normocephalic Eye exam: PRESENT: conjunctiva pink, EOMI, PERRLA. ABSENT: scleral icterus Ear exam: PRESENT: normal external ear exam Mouth exam: PRESENT: moist, tongue midline Neck exam: ABSENT: carotid bruit, JVD, lymphadenopathy, thyromegaly Respiratory exam: PRESENT: clear to auscultation jason. ABSENT: rales, rhonchi, wheezes Cardiovascular exam: PRESENT: RRR. ABSENT: diastolic murmur, rubs, systolic murmur Pulses: PRESENT: normal dorsalis pedis pul Vascular exam: PRESENT: normal capillary refill GI/Abdominal exam: PRESENT: distended - Obese Nontender, normal bowel sounds, soft, other - Obese and distended. ABSENT: guarding, mass, organolmegaly, rebound, tenderness Rectal exam: PRESENT: deferred Extremities exam: PRESENT: full ROM. ABSENT: calf tenderness, clubbing, pedal edema Neurological exam: PRESENT: alert, awake, oriented to person, oriented to place , oriented to time, oriented to situation, CN II-XII grossly intact. ABSENT: motor sensory deficit Psychiatric exam: PRESENT: appropriate affect, normal mood. ABSENT: homicidal ideation, suicidal ideation Skin exam: PRESENT: dry, intact, warm. ABSENT: cyanosis, rash Results Laboratory Results: 11/08/17 05:37 11/08/17 05:37 11/08/17 11/08/17 05:37 05:37 WBC 17.2 H RBC 2.83 L Hgb 9.8 L Hct 29.1 L MCV 103 H MCH 34.8 H MCHC 33.7 RDW 18.6 H Plt Count 213 Seg Neutrophils % 79.6 H Lymphocytes % 14.1 Monocytes % 4.4 Eosinophils % 1.0 Basophils % 0.9 Absolute Neutrophils 13.7 H Absolute Lymphocytes 2.4 Absolute Monocytes 0.8 Absolute Eosinophils 0.2 Absolute Basophils 0.1 Sodium 146.3 H Potassium 4.5 Chloride 105 Carbon Dioxide 24 Anion Gap 17 BUN 17 Creatinine 0.73 Est GFR ( Amer) > 60 Est GFR (Non-Af Amer) > 60 Glucose 94 Calcium 9.7 Total Bilirubin 5.1 H AST 234 H ALT 92 H Alkaline Phosphatase 140 H Total Protein 7.4 Albumin 4.0 Impressions: Chest/Abdomen CTA 10/12/17 13:46 IMPRESSION: No CT angio evidence of acute pulmonary emboli or thoracic aortic or abdominal aortic dissection or aneurysm. Hepatomegaly with recannulized umbilical vein and splenomegaly from portal hypertension. No CT evidence of portal vein, superior mesenteric vein, or hepatic vein thrombosis. No CT evidence of bowel obstruction Inflammatory changes around the distal esophagus with distal esophageal varices and inflammation in the surrounding para esophageal fat Findings discussed with Dr. Pelayo in the emergency room KUB X-Ray 10/18/17 00:00 IMPRESSION: NO RADIOGRAPHIC EVIDENCE FOR ACUTE ABDOMINAL DISEASE. Abdomen Ultrasound 10/19/17 16:29 IMPRESSION: NO EVIDENCE FOR ASCITES. Head CT 10/22/17 00:00 IMPRESSION: NORMAL BRAIN CT WITHOUT CONTRAST. EVIDENCE OF ACUTE STROKE: NO. Assessment & Plan - Diagnosis (1) Leukocytosis Is this a current diagnosis for this admission?: Yes (2) Fluid overload Is this a current diagnosis for this admission?: Yes Plan: Initiate Lasix and Aldactone Discontinued bicarb (3) Cirrhosis Qualifiers: Hepatic cirrhosis type: alcoholic cirrhosis Is this a current diagnosis for this admission?: Yes (4) Full code status Is this a current diagnosis for this admission?: Yes (5) Hyperammonemia Is this a current diagnosis for this admission?: Yes (6) Hypocalcemia Is this a current diagnosis for this admission?: Yes (7) Hypokalemia Is this a current diagnosis for this admission?: Yes (8) Sepsis Is this a current diagnosis for this admission?: Yes (9) Sinus tachycardia Is this a current diagnosis for this admission?: Yes Plan: Still persistent We will obtain an echocardiogram Patient may have underlying cardiomyopathy (10) Spontaneous bacterial peritonitis Is this a current diagnosis for this admission?: Yes (11) Alcohol dependence with withdrawal Qualifiers: Complication of substance-induced condition: uncomplicated Is this a current diagnosis for this admission?: Yes Plan: Resolved Continue to taper down benzos Small doses of Atarax (12) Alcoholic liver disease Is this a current diagnosis for this admission?: Yes (13) Hepatitis C Qualifiers: Viral hepatitis chronicity: chronic Is this a current diagnosis for this admission?: Yes (14) Hypomagnesemia Is this a current diagnosis for this admission?: Yes Plan: Resolved (15) Bipolar disorder Is this a current diagnosis for this admission?: Yes (16) Vitamin B12 deficiency Is this a current diagnosis for this admission?: Yes Plan: Vitamin B12 level was 350 We will replace - Time Time Spent with patient: Transfer to medical unit We will keep the patient another couple days to reevaluate medical management Patient may go home with outpatient alcohol rehab if no inpatient bed is available Patient has a plan to go and live with his grandmother if he cannot go rehab Time Spent with patient: 25-34 minutes
[2017-11-08] MEDS ORDERED: SPIRONOLACTONE 25 MG TABLET PO ONE (14:00)
[2017-11-08] MEDS ORDERED: CYANOCOBALAMIN (VITAMIN B-12) 1,000 MCG TABLET PO ONE (14:00)
[2017-11-08] MEDS ORDERED: FUROSEMIDE INJ/PF 20 MG/2 ML SDV IV ONE (14:00)
[2017-11-08] MEDS: LORAZEPAM 0.5 MG TABLET PO PRN (16:57)
[2017-11-08] MEDS: FUROSEMIDE INJ/PF 20 MG/2 ML SDV IV SCH (21:09)
[2017-11-08] MEDS: HYDROXYZINE HCL 10 MG TABLET PO SCH (21:10)
[2017-11-08] MEDS: PHARMACY COMMUNICATION ORDER MC SCH (21:19)
[2017-11-09] MEDS: LACTULOSE SYRUP 20 GM/30 ML UDCUP PO SCH ×6 (01:23→21:08)
[2017-11-09] MEDS: GABAPENTIN 100 MG CAPSULE PO SCH ×3 (05:14→21:10)
[2017-11-09] MEDS: CYANOCOBALAMIN (VITAMIN B-12) 1,000 MCG TABLET PO SCH (09:12)
[2017-11-09] MEDS: NYSTATIN 500000 UNIT/5 ML UDCUP PO SCH ×4 (09:12→21:11)
[2017-11-09] MEDS: NICOTINE 21 MG/24 HR PATCH.TD24 TD SCH (09:12)
[2017-11-09] MEDS: THIAMINE HCL 100 MG TABLET PO SCH (09:15)
[2017-11-09] MEDS: FOLIC ACID 1 MG TABLET PO SCH (09:15)
[2017-11-09] MEDS: PREDNISONE 10 MG TABLET PO SCH (09:15)
[2017-11-09] MEDS: SPIRONOLACTONE 25 MG TABLET PO SCH (09:16)
[2017-11-09] MEDS: MAGNESIUM OXIDE 400 MG TABLET PO SCH (09:16)
[2017-11-09] MEDS: CLONIDINE HCL 0.1 MG TABLET PO SCH ×2 (09:16→21:10)
[2017-11-09] MEDS: BUSPIRONE HCL 10 MG TABLET PO SCH (09:16)
[2017-11-09] MEDS: LIDOCAINE 5% (700 MG) TRANSDERMAL ADH..PATCH TP SCH (09:17)
[2017-11-09] MEDS: DIVALPROEX SODIUM 250 MG TABLET.DR PO SCH ×2 (09:17→21:12)
[2017-11-09] MEDS: FUROSEMIDE INJ/PF 20 MG/2 ML SDV IV SCH (09:18)
[2017-11-09 10:34] LABS: ABSOLUTE BASOPHILS # (AUTO) 0.1 10^3/uL (0.0-0.2); ABSOLUTE EOSINOPHILS # (AUTO) 0.2 10^3/uL (0.0-0.6); ABSOLUTE LYMPHOCYTES (AUTO) 2.1 10^3/uL (0.5-4.7); ABSOLUTE MONOCYTES (AUTO) 0.6 10^3/uL (0.1-1.4); ABSOLUTE NEUT (AUTO) 15.1 10^3/uL (1.7-8.2); BASOPHILS % (AUTO) 0.3 % (0-2); EOSINOPHILS % (AUTO) 0.9 % (0-6); HEMATOCRIT 29.9 % (37.9-51.0); HEMOGLOBIN 10.1 g/dL (13.5-17.0); LYMPHOCYTES % (AUTO) 11.8 % (13-45); MEAN CORPUSCULAR HEMOGLOBIN 34.6 pg (27.0-33.4); MEAN CORPUSCULAR HGB CONC 33.9 g/dL (32.0-36.0); MEAN CORPUSCULAR VOLUME 102 fl (80-97); MONOCYTES % (AUTO) 3.5 % (3-13); PLATELET COUNT 183 10^3/uL (150-450); RED BLOOD COUNT 2.93 10^6/uL (4.35-5.55); RED CELL DISTRIBUTION WIDTH 18.2 % (11.5-14.0); SEGMENTED NEUTROPHILS % (AUTO) 83.5 % (42-78); TOTAL CELLS COUNTED % (AUTO) 100 %; WHITE BLOOD COUNT 18.1 10^3/uL (4.0-10.5)
[2017-11-09 11:06] LABS: BLOOD UREA NITROGEN 18 mg/dL (7-20); CALCIUM 10.1 mg/dL (8.4-10.2); CHLORIDE 101 mmol/L (98-107); GLUCOSE 97 mg/dL (75-110); POTASSIUM 3.7 mmol/L (3.6-5.0)
[2017-11-09 11:11] LABS: ANION GAP 19 (5-19); CARBON DIOXIDE 26 mmol/L (22-30); SODIUM 146.2 mmol/L (137-145)
--- NOTE | 2017-11-09 12:03 | XCELERA REPORT ---
[address] [address] Transthoracic Echocardiogram Report Name: RAMBO MARTINEZ Age: 32 yrs Gender: Male : 1985 Patient Status: Inpatient Patient Location: [address] [place] [address] Study Date: 11/08/2017 02:28 PM Procedure: A two-dimensional transthoracic echocardiogram with color flow and Doppler was performed. Study Quality: Technically suboptimal. Poor doppler interogation , and poor endocardial definition. Reason For Study: tachycardia chronic etoh History: tachycardia chronic etoh. Ordering Physician: CAROL NAGY Performed By: Lis Avitia Interpretation Summary The left ventricle is normal in size. There is normal left ventricular wall thickness. Left ventricular systolic function is normal. LV EF is 70% Doppler measurements suggest normal left ventricular diastolic function Probably normal wall motion. The left atrial size is normal. There is no evidence of mitral valve prolapse. There is no mitral valve stenosis. There is no mitral regurgitation noted. There is no aortic valve stenosis There is no LVOT obstruction. No aortic regurgitation is present. There is no tricuspid stenosis. There is a mild amount of tricuspid regurgitation Right ventricular systolic pressure is normal. RVSP is 29 mm of Hg , with RA mean of 10. There is no pericardial effusion. MMode/2D Measurements & Calculations RVDd: 3.7 cm LVIDd: 4.5 cm FS: 44.4 % Ao root diam: 2.7 cm IVSd: 1.0 cm LVIDs: 2.5 cm EDV(Teich): 91.3 ml Ao root area: 5.6 cm2 LVPWd: 1.2 cm ESV(Teich): 22.0 ml LA dimension: 3.7 cm EF(Teich): 75.9 % LVOT diam: 1.9 cm LVOT area: 2.8 cm2 Doppler Measurements & Calculations MV E max leonila: MV P1/2t max leonila: Ao V2 max: LV V1 max P.1 cm/sec 124.9 cm/sec 182.8 cm/sec 7.2 mmHg MV A max leonila: MV P1/2t: 63.7 msec Ao max PG: LV V1 max: 111.3 cm/sec 13.4 mmHg 134.3 cm/sec MV E/A: 1.2 MVA(P1/2t): 3.5 cm2 MV dec slope: ROGELIO(V,D): 2.1 cm2 574.0 cm/sec2 MV dec time: 0.21 sec PA V2 max: TR max leonila: 157.5 cm/sec 214.8 cm/sec PA max PG: TR max P.4 mmHg 9.9 mmHg Left Ventricle The left ventricle is normal in size. There is normal left ventricular wall thickness. Left ventricular systolic function is normal. LV EF is 70%. Doppler measurements suggest normal left ventricular diastolic function. Probably normal wall motion. There is no thrombus. Right Ventricle The right ventricle is not well visualized secondary to technical limitations. Atria The right atrium is normal. The left atrial size is normal. Mitral Valve There is no evidence of mitral valve prolapse. There is no vegetation seen on the mitral valve. There is no mitral valve stenosis. There is no mitral regurgitation noted. Aortic Valve There is no aortic valvular vegetation. There is no aortic valve stenosis. There is no LVOT obstruction. No aortic regurgitation is present. Tricuspid Valve There is no tricuspid stenosis. Right ventricular systolic pressure is normal. There is a mild amount of tricuspid regurgitation. RVSP is 29 mm of Hg , with RA mean of 10. Pulmonic Valve There is no pulmonic valvular stenosis. There is no pulmonic valvular regurgitation. Great Vessels The aortic root is normal size. Effusions There is no pericardial effusion. : CAROL NAGY > Ching Martin
--- NOTE | 2017-11-09 12:59 | Progress Note ---
Provider Note Provider Note: Severity of liver disease Patient has a meld score of 13 He has 6% chances to of his liver disease in 3 years ultrasound of the abdomen shows fatty liver Abstinence from alcohol is the only prevention to prevent progression to cirrhosis of the liver
--- NOTE | 2017-11-09 13:06 | PDOC PROGRESS REPORT ---
Subjective Progress Note for:: 11/09/17 Subjective:: Patient is feeling better less edema no shortness of breath Alert and awake Reason For Visit: ALCOHOL WITHDRAWAL Physical Exam Vital Signs: Temp Pulse Resp BP Pulse Ox 99.6 F 107 H 18 116/62 95 11/09/17 11:36 11/09/17 11:36 11/09/17 11:36 11/09/17 11:36 11/09/17 11:36 Pulse Oximeter Continuous Start: 10/28/17 22: 21 Freq: RTQ4 Status: Complete Document 11/07/17 04:00 HCR (Rec: 11/07/17 06:00 HCR [email or web address]) Pulse Oximetry Assessment Oxygen Saturation (92-100) 95 Oxygen Delivery Method Room Air Fraction of Inspired Oxygen (FIO2) 21 Equipment Usage Equipment Standby Continuous SpO2 Machine # 9 Intake & Output 11/08/17 11/09/17 11/10/17 00:59 00:59 00:59 Intake Total 1830 1722 500 Balance 1830 1722 500 Weight 89.8 kg 91 kg 88.3 kg General appearance: PRESENT: no acute distress, cooperative Head exam: PRESENT: atraumatic, normocephalic Eye exam: PRESENT: scleral icterus Neck exam: ABSENT: carotid bruit, JVD, lymphadenopathy, thyromegaly Respiratory exam: PRESENT: clear to auscultation jason. ABSENT: rales, rhonchi, wheezes Cardiovascular exam: PRESENT: RRR, tachycardia. ABSENT: diastolic murmur, gallop, rubs Pulses: PRESENT: normal dorsalis pedis pul GI/Abdominal exam: PRESENT: distended, normal bowel sounds Extremities exam: PRESENT: full ROM, +1 edema Musculoskeletal exam: PRESENT: full ROM Neurological exam: PRESENT: alert, CN II-XII grossly intact Psychiatric exam: PRESENT: appropriate affect Results Laboratory Results: 11/09/17 10:20 11/09/17 10:20 11/09/17 11/09/17 10:20 10:20 WBC 18.1 H RBC 2.93 L Hgb 10.1 L Hct 29.9 L MCV 102 H MCH 34.6 H MCHC 33.9 RDW 18.2 H Plt Count 183 Seg Neutrophils % 83.5 H Lymphocytes % 11.8 L Monocytes % 3.5 Eosinophils % 0.9 Basophils % 0.3 Absolute Neutrophils 15.1 H Absolute Lymphocytes 2.1 Absolute Monocytes 0.6 Absolute Eosinophils 0.2 Absolute Basophils 0.1 Sodium 146.2 H Potassium 3.7 Chloride 101 Carbon Dioxide 26 Anion Gap 19 BUN 18 Creatinine 0.61 Est GFR ( Amer) > 60 Est GFR (Non-Af Amer) > 60 Glucose 97 Calcium 10.1 Impressions: Chest/Abdomen CTA 10/12/17 13:46 IMPRESSION: No CT angio evidence of acute pulmonary emboli or thoracic aortic or abdominal aortic dissection or aneurysm. Hepatomegaly with recannulized umbilical vein and splenomegaly from portal hypertension. No CT evidence of portal vein, superior mesenteric vein, or hepatic vein thrombosis. No CT evidence of bowel obstruction Inflammatory changes around the distal esophagus with distal esophageal varices and inflammation in the surrounding para esophageal fat Findings discussed with Dr. Pelayo in the emergency room KUB X-Ray 10/18/17 00:00 IMPRESSION: NO RADIOGRAPHIC EVIDENCE FOR ACUTE ABDOMINAL DISEASE. Abdomen Ultrasound 10/19/17 16:29 IMPRESSION: NO EVIDENCE FOR ASCITES. Head CT 10/22/17 00:00 IMPRESSION: NORMAL BRAIN CT WITHOUT CONTRAST. EVIDENCE OF ACUTE STROKE: NO. Assessment & Plan - Diagnosis (1) Leukocytosis Is this a current diagnosis for this admission?: Yes Plan: Persistent etiology unclear (2) Fluid overload Is this a current diagnosis for this admission?: Yes Plan: Continue Lasix and Aldactone We will switch to p.o. (3) Full code status Is this a current diagnosis for this admission?: Yes (4) Hyperammonemia Is this a current diagnosis for this admission?: Yes (5) Hypocalcemia Is this a current diagnosis for this admission?: Yes (6) Hypokalemia Is this a current diagnosis for this admission?: Yes (7) Sepsis Is this a current diagnosis for this admission?: Yes (8) Sinus tachycardia Is this a current diagnosis for this admission?: Yes (9) Spontaneous bacterial peritonitis Is this a current diagnosis for this admission?: Yes (10) Alcohol dependence with withdrawal Qualifiers: Complication of substance-induced condition: uncomplicated Qualified Code(s ): F10.230 - Alcohol dependence with withdrawal, uncomplicated Is this a current diagnosis for this admission?: Yes (11) Alcoholic liver disease Is this a current diagnosis for this admission?: Yes Plan: With fatty infiltration on the end of the liver on ultrasound Meld score is 13 (12) Hypomagnesemia Is this a current diagnosis for this admission?: Yes (13) Hepatitis C Qualifiers: Viral hepatitis chronicity: chronic Is this a current diagnosis for this admission?: Yes Plan: We will review patient's serology titers (14) Bipolar disorder Is this a current diagnosis for this admission?: Yes (15) Vitamin B12 deficiency Is this a current diagnosis for this admission?: Yes Plan: Vitamin B12 level was 350 We will replace - Time Time Spent with patient: 25-34 minutes - Continue present management patient to be discharge to inpatient rehab versus home with outpatient counseling by the end of the week
[2017-11-09] MEDS: LORAZEPAM 0.5 MG TABLET PO PRN (16:49)
[2017-11-09] MEDS: CEFEPIME 2 GM/D5W RTU 2 GM/50 ML RTUPB IV SCH (18:36)
--- NOTE | 2017-11-09 20:02 | RADIOLOGY REPORT (SQ) ---
EXAM DESCRIPTION: MRI ABDOMEN WITHOUT COMPLETED DATE/TIME: 11/09/2017 6:29 pm REASON FOR STUDY: MRCP ;fever leukocytosis elevated bili COMPARISON: None. TECHNIQUE: Noncontrast MRCP. Source and MIP images reviewed. LIMITATIONS: None. FINDINGS: GALLBLADDER: Normal. INTRAHEPATIC DUCTS: Nondilated. EXTRAHEPATIC DUCTS: Common duct is normal caliber. No dilatation of the pancreatic duct. No ductal filling defects noted. PANCREAS: Generally homogeneous, no gross mass or significant signal alteration. No surrounding infl ammatory changes or fluid. Pancreatic duct is normal. LIVER, SPLEEN, KIDNEYS, ADRENALS: No significant abnormality. VESSELS: No evidence of aneurysm. Grossly appropriate flow voids in the major vascular structures. LUNG BASES: Grossly clear. OTHER: No other significant finding. IMPRESSION: NORMAL HEPATOBILIARY SYSTEM. NO STONES OR COMMON DUCT ABNORMALITIES. TECHNICAL DOCUMENTATION: JOB ID: [id number] [employer]!- All Rights Reserved Reading location - IP/workstation name: [email or web address]
[2017-11-09] MEDS: HYDROXYZINE HCL 10 MG TABLET PO SCH (21:08)
[2017-11-09] MEDS: PHARMACY COMMUNICATION ORDER MC SCH (21:17)
[2017-11-10] MEDS: LACTULOSE SYRUP 20 GM/30 ML UDCUP PO SCH ×6 (01:10→21:45)
[2017-11-10] MEDS: CEFEPIME 2 GM/D5W RTU 2 GM/50 ML RTUPB IV SCH ×2 (05:01→17:20)
[2017-11-10] MEDS: GABAPENTIN 100 MG CAPSULE PO SCH ×3 (05:02→21:47)
[2017-11-10] MEDS: LORAZEPAM 0.5 MG TABLET PO PRN ×2 (08:16→17:20)
[2017-11-10 08:56] LABS: ABSOLUTE BASOPHILS # (AUTO) 0.2 10^3/uL (0.0-0.2); ABSOLUTE EOSINOPHILS # (AUTO) 0.2 10^3/uL (0.0-0.6); ABSOLUTE LYMPHOCYTES (AUTO) 1.9 10^3/uL (0.5-4.7); ABSOLUTE MONOCYTES (AUTO) 0.5 10^3/uL (0.1-1.4); ABSOLUTE NEUT (AUTO) 12.9 10^3/uL (1.7-8.2); EOSINOPHILS % (AUTO) 1.3 % (0-6); HEMATOCRIT 28.9 % (37.9-51.0); HEMOGLOBIN 9.4 g/dL (13.5-17.0); LYMPHOCYTES % (AUTO) 12.4 % (13-45); MEAN CORPUSCULAR HEMOGLOBIN 33.7 pg (27.0-33.4); MEAN CORPUSCULAR HGB CONC 32.5 g/dL (32.0-36.0); MEAN CORPUSCULAR VOLUME 104 fl (80-97); MONOCYTES % (AUTO) 3.3 % (3-13); PLATELET COUNT 163 10^3/uL (150-450); RED BLOOD COUNT 2.79 10^6/uL (4.35-5.55); RED CELL DISTRIBUTION WIDTH 18.2 % (11.5-14.0); TOTAL CELLS COUNTED % (AUTO) 100 %; WHITE BLOOD COUNT 15.7 10^3/uL (4.0-10.5)
[2017-11-10 09:17] LABS: ALANINE AMINOTRANSFERASE 82 U/L (21-72); ALBUMIN 3.7 g/dL (3.5-5.0); ALKALINE PHOSPHATASE 144 U/L (38-126); ANION GAP 18 (5-19); ASPARTATE AMINO TRANSFERASE 261 U/L (17-59); BILIRUBIN,DIRECT 4.1 mg/dL (0.0-0.4); BILIRUBIN,TOTAL 4.8 mg/dL (0.2-1.3); BLOOD UREA NITROGEN 16 mg/dL (7-20); CALCIUM 9.4 mg/dL (8.4-10.2); CARBON DIOXIDE 19 mmol/L (22-30); CHLORIDE 105 mmol/L (98-107); GLUCOSE 189 mg/dL (75-110); POTASSIUM 3.8 mmol/L (3.6-5.0); SODIUM 141.5 mmol/L (137-145); TOTAL PROTEIN 6.9 g/dL (6.3-8.2)
[2017-11-10] MEDS: NICOTINE 21 MG/24 HR PATCH.TD24 TD SCH (09:36)
[2017-11-10] MEDS: SPIRONOLACTONE 25 MG TABLET PO SCH (09:36)
[2017-11-10] MEDS: PREDNISONE 10 MG TABLET PO SCH (09:36)
[2017-11-10] MEDS: LIDOCAINE 5% (700 MG) TRANSDERMAL ADH..PATCH TP SCH (09:36)
[2017-11-10] MEDS: FOLIC ACID 1 MG TABLET PO SCH (09:36)
[2017-11-10] MEDS: FUROSEMIDE 20 MG TABLET PO SCH (09:37)
[2017-11-10] MEDS: BUSPIRONE HCL 10 MG TABLET PO SCH (09:37)
[2017-11-10] MEDS: THIAMINE HCL 100 MG TABLET PO SCH (09:37)
[2017-11-10] MEDS: MAGNESIUM OXIDE 400 MG TABLET PO SCH (09:37)
[2017-11-10] MEDS: CLONIDINE HCL 0.1 MG TABLET PO SCH ×2 (09:37→21:49)
[2017-11-10] MEDS: DIVALPROEX SODIUM 250 MG TABLET.DR PO SCH ×2 (09:37→21:51)
[2017-11-10] MEDS: CYANOCOBALAMIN (VITAMIN B-12) 1,000 MCG TABLET PO SCH (09:37)
[2017-11-10] MEDS: NYSTATIN 500000 UNIT/5 ML UDCUP PO SCH ×4 (09:48→21:47)
[2017-11-10 11:12] LABS: IRON(TIBC) 62.7 ug/dL (49-181)
--- NOTE | 2017-11-10 11:19 | PDOC PROGRESS REPORT ---
Subjective Progress Note for:: 11/10/17 Subjective:: Patient does not have a fever today no chills but he still remains tachycardic He has no abdominal pain no nausea no vomiting He has some vague chest discomfort The echocardiogram was performed and showed a normal left ventricular function MRI abdomen was normal There was no suspicion of acute cholangitis ; leukocytosis no evidence of pancreatitis Is resolving slowly with a white blood count of 14,000 Patient had been started on cefepime IV CTA of the chest will be ordered to exclude acute pulmonary embolism and occult pneumonia Reason For Visit: ALCOHOL WITHDRAWAL Physical Exam Vital Signs: Temp Pulse Resp BP Pulse Ox 98.6 F 100 16 117/62 98 11/10/17 07:25 11/10/17 07:25 11/10/17 07:25 11/10/17 07:25 11/10/17 07:25 Pulse Oximeter Continuous Start: 10/28/17 22: 21 Freq: RTQ4 Status: Complete Document 11/07/17 04:00 HCR (Rec: 11/07/17 06:00 HCR [email or web address]) Pulse Oximetry Assessment Oxygen Saturation (92-100) 95 Oxygen Delivery Method Room Air Fraction of Inspired Oxygen (FIO2) 21 Equipment Usage Equipment Standby Continuous SpO2 Machine # 9 Intake & Output 11/09/17 11/10/17 11/11/17 00:59 00:59 00:59 Intake Total 1722 1965 168 Balance 1722 1965 168 Weight 91 kg 88.3 kg 87.5 kg He looks ill pale Pupils are PERRLA extraocular motor intact Conjunctivae ictera neck supple no nodes no bruits Heart tachycardia no murmur no gallop Lungs diminished breath sounds bilaterally The abdomen is distended soft nontender no organomegaly normal bowel sounds Extremities no peripheral edema Neuro 2 through 12 intact no deficits Results Laboratory Results: 11/10/17 08:45 11/10/17 08:45 11/09/17 11/10/17 11/10/17 10:20 08:45 08:45 WBC 15.7 H RBC 2.79 L Hgb 9.4 L Hct 28.9 L MCV 104 H MCH 33.7 H MCHC 32.5 RDW 18.2 H Plt Count 163 Seg Neutrophils % 82.0 H Lymphocytes % 12.4 L Monocytes % 3.3 Eosinophils % 1.3 Basophils % 1.0 Absolute Neutrophils 12.9 H Absolute Lymphocytes 1.9 Absolute Monocytes 0.5 Absolute Eosinophils 0.2 Absolute Basophils 0.2 Sodium 146.2 H 141.5 Potassium 3.7 3.8 Chloride 101 105 Carbon Dioxide 26 19 L Anion Gap 19 18 BUN 18 16 Creatinine 0.61 0.60 Est GFR ( Amer) > 60 > 60 Est GFR (Non-Af Amer) > 60 > 60 Glucose 97 189 H Calcium 10.1 9.4 Total Bilirubin 4.8 H AST 261 H ALT 82 H Alkaline Phosphatase 144 H Total Protein 6.9 Albumin 3.7 Impressions: Chest/Abdomen CTA 10/12/17 13:46 IMPRESSION: No CT angio evidence of acute pulmonary emboli or thoracic aortic or abdominal aortic dissection or aneurysm. Hepatomegaly with recannulized umbilical vein and splenomegaly from portal hypertension. No CT evidence of portal vein, superior mesenteric vein, or hepatic vein thrombosis. No CT evidence of bowel obstruction Inflammatory changes around the distal esophagus with distal esophageal varices and inflammation in the surrounding para esophageal fat Findings discussed with Dr. Pelayo in the emergency room KUB X-Ray 10/18/17 00:00 IMPRESSION: NO RADIOGRAPHIC EVIDENCE FOR ACUTE ABDOMINAL DISEASE. Abdomen Ultrasound 10/19/17 16:29 IMPRESSION: NO EVIDENCE FOR ASCITES. Head CT 10/22/17 00:00 IMPRESSION: NORMAL BRAIN CT WITHOUT CONTRAST. EVIDENCE OF ACUTE STROKE: NO. Abdomen MRI 11/09/17 14:19 IMPRESSION: NORMAL HEPATOBILIARY SYSTEM. NO STONES OR COMMON DUCT ABNORMALITIES. Assessment & Plan - Diagnosis (1) Leukocytosis Is this a current diagnosis for this admission?: Yes (2) Fluid overload Is this a current diagnosis for this admission?: Yes Plan: Continue Aldactone (3) Full code status Is this a current diagnosis for this admission?: Yes (4) Hyperammonemia Is this a current diagnosis for this admission?: Yes Plan: We will repeat serum ammonia level (5) Hypocalcemia Is this a current diagnosis for this admission?: Yes (6) Hypokalemia Is this a current diagnosis for this admission?: Yes (7) Sepsis Is this a current diagnosis for this admission?: Yes (8) Sinus tachycardia Is this a current diagnosis for this admission?: Yes Plan: still persistent (9) Spontaneous bacterial peritonitis Is this a current diagnosis for this admission?: Yes (10) Alcohol dependence with withdrawal Qualifiers: Complication of substance-induced condition: uncomplicated Qualified Code(s ): F10.230 - Alcohol dependence with withdrawal, uncomplicated Is this a current diagnosis for this admission?: Yes (11) Alcoholic liver disease Is this a current diagnosis for this admission?: Yes (12) Hypomagnesemia Is this a current diagnosis for this admission?: Yes (13) Hepatitis C Qualifiers: Viral hepatitis chronicity: chronic Is this a current diagnosis for this admission?: Yes (14) Bipolar disorder Is this a current diagnosis for this admission?: Yes (15) Vitamin B12 deficiency Is this a current diagnosis for this admission?: Yes Plan: will repeat labs continue supplementation (16) Anemia Is this a current diagnosis for this admission?: Yes Plan: likely secondary to chronic liver disease and vitamin B12 deficiency check iron , stools fo OB - Time Time Spent with patient: Continue cefepime CTA of the chest pending Time Spent with patient: 25-34 minutes
[2017-11-10 12:19] LABS: FOLATE > 20.00 ng/mL (>2.76)
--- NOTE | 2017-11-10 13:31 | RADIOLOGY REPORT (SQ) ---
EXAM DESCRIPTION: CTA CHEST COMPLETED DATE/TIME: 11/10/2017 1:06 pm REASON FOR STUDY: tachycardia fever shortness of breath, chest pain COMPARISON: None. TECHNIQUE: CT scan of the chest performed using helical scanning technique with dynamic intravenous contrast injection. Images reviewed with lung, soft tissue and bone windows. Reconstructed coronal and sagittal MPR images reviewed. Additional 3 dimensional post-processing performed to develop Maximal Intensity Projection images (ND P). All images stored on PACS. All CT scanners at this facility use dose modulation, iterative reconstruction, and/or weight based d osing when appropriate to reduce radiation dose to as low as reasonably achievable (ALARA). [facility]: Dose Right [facility]: CareDose [facility]: Dose Right [facility]: Teradose 4D [facility]: Metaps CONTRAST TYPE AND DOSE: contrast/concentration: Isovue 370.00 mg/ml; Total Contrast Delivered: 68.0 ml; Total Saline Delivered: 110.0 ml Contrast bolus optimized for the pulmonary arteries. Not diagnostic for the aorta. RENAL FUNCTION: Creatinine 0.6 RADIATION DOSE: CT Rad equipment meets quality standard of care and radiation dose reduction techniq ues were employed. CTDIvol: 9.4 - 13.8 mGy. DLP: 509 mGy-cm. . LIMITATIONS: None. FINDINGS: LUNGS AND PLEURA: No masses, infiltrates, pneumothorax. No pleural effusions, calcificati ons. AORTA AND GREAT VESSELS: No aneurysm. Contrast bolus not optimized for the aorta. HEART: No pericardial effusion. No significant coronary artery calcifications. PULMONARY ARTERIES: No emboli visualized in the main pulmonary arteries or the segmental branches. HILAR AND MEDIASTINAL STRUCTURES: No identified masses or abnormal nodes. HARDWARE: None in the chest. UPPER ABDOMEN: There is hepatosplenomegaly. Spleen measures at least 17 cm diameter. Small collater als at the splenic hilum, recannulized umbilical vein worrisome for portal hypertension. There are p araesophageal varices in the posterior mediastinum THYROID AND OTHER SOFT TISSUES: Bilateral gynecomastia. No adenopathy. BONES: No acute or significant finding. 3D MIPS: Confirm above findings. OTHER: No other significant finding. IMPRESSION: No CT angio evidence of acute pulmonary emboli or thoracic aortic dissection. Hepatosplenomegaly with signs of portal hypertension COMMENT: Quality ID # [id number]: Final reports with documentation of one or more dose reduction techniques (e.g., Automated exposure control, adjustment of the mA and/or kV according to patient size, use of iterative reconstruction technique) TECHNICAL DOCUMENTATION: JOB ID: [id number] [employer]- All Rights Reserved Reading location - IP/workstation name: [email or web address]
[2017-11-10] MEDS: HYDROXYZINE HCL 10 MG TABLET PO SCH (21:48)
[2017-11-10] MEDS: PHARMACY COMMUNICATION ORDER MC SCH (21:52)
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
[2017-11-11] MEDS: IBUPROFEN 600 MG TABLET PO PRN (00:23)
[2017-11-11] MEDS: LACTULOSE SYRUP 20 GM/30 ML UDCUP PO SCH ×6 (02:32→21:48)
[2017-11-11] MEDS: GABAPENTIN 100 MG CAPSULE PO SCH ×3 (05:03→21:48)
[2017-11-11] MEDS: CEFEPIME 2 GM/D5W RTU 2 GM/50 ML RTUPB IV SCH ×2 (05:05→16:51)
[2017-11-11] MEDS: LORAZEPAM 0.5 MG TABLET PO PRN ×3 (05:41→21:52)
[2017-11-11] MEDS: FUROSEMIDE 20 MG TABLET PO SCH (09:21)
[2017-11-11] MEDS: PREDNISONE 10 MG TABLET PO SCH (09:21)
[2017-11-11] MEDS: CLONIDINE HCL 0.1 MG TABLET PO SCH ×2 (09:22→21:48)
[2017-11-11] MEDS: MAGNESIUM OXIDE 400 MG TABLET PO SCH (09:22)
[2017-11-11] MEDS: FOLIC ACID 1 MG TABLET PO SCH (09:22)
[2017-11-11] MEDS: SPIRONOLACTONE 25 MG TABLET PO SCH (09:22)
[2017-11-11] MEDS: THIAMINE HCL 100 MG TABLET PO SCH (09:22)
[2017-11-11] MEDS: BUSPIRONE HCL 10 MG TABLET PO SCH (09:22)
[2017-11-11] MEDS: CYANOCOBALAMIN (VITAMIN B-12) 1,000 MCG TABLET PO SCH (09:23)
[2017-11-11] MEDS: NICOTINE 21 MG/24 HR PATCH.TD24 TD SCH (09:23)
[2017-11-11] MEDS: NYSTATIN 500000 UNIT/5 ML UDCUP PO SCH ×2 (09:23→13:34)
[2017-11-11] MEDS: DIVALPROEX SODIUM 250 MG TABLET.DR PO SCH ×2 (09:24→21:48)
[2017-11-11] MEDS: LIDOCAINE 5% (700 MG) TRANSDERMAL ADH..PATCH TP SCH (09:26)
--- NOTE | 2017-11-11 10:46 | PDOC PROGRESS REPORT ---
Subjective Progress Note for:: 11/11/17 Subjective:: Patient is clinically unchanged Fever has resolved Source of the fever likely is spontaneous bacterial peritonitis although patient does not have significant ascites described on ultrasound So far patient has no offer for inpatient alcohol rehab Reason For Visit: ALCOHOL WITHDRAWAL Physical Exam Vital Signs: Temp Pulse Resp BP Pulse Ox 97.6 F 107 H 20 142/92 H 99 11/11/17 07:56 11/11/17 07:56 11/11/17 07:56 11/11/17 07:56 11/11/17 07:56 Pulse Oximeter Continuous Start: 10/28/17 22: 21 Freq: RTQ4 Status: Complete Document 11/07/17 04:00 HCR (Rec: 11/07/17 06:00 HCR [email or web address]) Pulse Oximetry Assessment Oxygen Saturation (92-100) 95 Oxygen Delivery Method Room Air Fraction of Inspired Oxygen (FIO2) 21 Equipment Usage Equipment Standby Continuous SpO2 Machine # 9 Intake & Output 11/10/17 11/11/17 11/12/17 00:59 00:59 00:59 Intake Total 1964 1571 544 Balance 1964 1571 544 Weight 88.3 kg 87.5 kg 86.7 kg He looks ill pale Pupils are PERRLA extraocular motor intact Conjunctivae ictera neck supple no nodes no bruits Heart tachycardia no murmur no gallop Lungs diminished breath sounds bilaterally The abdomen is distended soft nontender no organomegaly normal bowel sounds Extremities no peripheral edema Neuro 2 through 12 intact no deficits Results Laboratory Results: 11/10/17 08:45 11/10/17 08:45 11/10/17 11/10/17 11/10/17 08:45 11:50 13:16 Iron 62.7 TIBC 328 % Saturation 19 Ferritin 155.00 Ammonia 50.9 H Vitamin B12 509.0 Folate > 20.00 Stool Occult Blood NEGATIVE Impressions: KUB X-Ray 10/18/17 00:00 IMPRESSION: NO RADIOGRAPHIC EVIDENCE FOR ACUTE ABDOMINAL DISEASE. Abdomen Ultrasound 10/19/17 16:29 IMPRESSION: NO EVIDENCE FOR ASCITES. Head CT 10/22/17 00:00 IMPRESSION: NORMAL BRAIN CT WITHOUT CONTRAST. EVIDENCE OF ACUTE STROKE: NO. Abdomen MRI 11/09/17 14:19 IMPRESSION: NORMAL HEPATOBILIARY SYSTEM. NO STONES OR COMMON DUCT ABNORMALITIES. Chest/Abdomen CTA 11/10/17 11:11 IMPRESSION: No CT angio evidence of acute pulmonary emboli or thoracic aortic dissection. Hepatosplenomegaly with signs of portal hypertension Assessment & Plan - Diagnosis (1) Leukocytosis Is this a current diagnosis for this admission?: Yes (2) Fluid overload Is this a current diagnosis for this admission?: Yes (3) Full code status Is this a current diagnosis for this admission?: Yes (4) Hyperammonemia Is this a current diagnosis for this admission?: Yes Plan: Ammonia level still around 50 We will continue lactulose Unfortunately patient will not be able to afford rifaximin as he has no medical insurance (5) Hypocalcemia Is this a current diagnosis for this admission?: Yes (6) Hypokalemia Is this a current diagnosis for this admission?: Yes (7) Sepsis Is this a current diagnosis for this admission?: Yes (8) Sinus tachycardia Is this a current diagnosis for this admission?: Yes (9) Spontaneous bacterial peritonitis Is this a current diagnosis for this admission?: Yes Plan: Continue cefepime IV Patient will be discharged on Cipro (10) Alcohol dependence with withdrawal Qualifiers: Complication of substance-induced condition: uncomplicated Qualified Code(s ): F10.230 - Alcohol dependence with withdrawal, uncomplicated Is this a current diagnosis for this admission?: Yes (11) Alcoholic liver disease Is this a current diagnosis for this admission?: Yes (12) Hypomagnesemia Is this a current diagnosis for this admission?: Yes (13) Hepatitis C Qualifiers: Viral hepatitis chronicity: chronic Is this a current diagnosis for this admission?: Yes (14) Bipolar disorder Is this a current diagnosis for this admission?: Yes (15) Vitamin B12 deficiency Is this a current diagnosis for this admission?: Yes (16) Anemia Is this a current diagnosis for this admission?: Yes (17) Portal hypertension Is this a current diagnosis for this admission?: Yes Plan: Will initiate beta-blockers Patient will need to be scheduled for endoscopy as an outpatient to ligate esophageal varices if present - Time Time Spent with patient: Evaluate patient for discharge in a.m. if he does not have an inpatient rehab bed Time Spent with patient: 25-34 minutes
[2017-11-11] MEDS: NADOLOL 40 MG TABLET PO SCH (11:59)
[2017-11-11] MEDS: HYDROXYZINE HCL 10 MG TABLET PO SCH (21:48)
[2017-11-11] MEDS: PHARMACY COMMUNICATION ORDER MC SCH (21:49)
[2017-11-11] MEDS: ONDANSETRON 4 MG TAB.RAPDIS PO PRN (23:27)
[2017-11-12] MEDS: LACTULOSE SYRUP 20 GM/30 ML UDCUP PO SCH ×3 (01:32→09:39)
[2017-11-12] MEDS: GABAPENTIN 100 MG CAPSULE PO SCH (05:27)
[2017-11-12] MEDS: CEFEPIME 2 GM/D5W RTU 2 GM/50 ML RTUPB IV SCH (05:28)
[2017-11-12 06:12] LABS: ABSOLUTE BASOPHILS # (AUTO) 0.2 10^3/uL (0.0-0.2); ABSOLUTE EOSINOPHILS # (AUTO) 0.3 10^3/uL (0.0-0.6); ABSOLUTE LYMPHOCYTES (AUTO) 2.9 10^3/uL (0.5-4.7); ABSOLUTE MONOCYTES (AUTO) 0.9 10^3/uL (0.1-1.4); ABSOLUTE NEUT (AUTO) 13.2 10^3/uL (1.7-8.2); BASOPHILS % (AUTO) 0.9 % (0-2); EOSINOPHILS % (AUTO) 1.9 % (0-6); HEMATOCRIT 30.4 % (37.9-51.0); HEMOGLOBIN 10.1 g/dL (13.5-17.0); LYMPHOCYTES % (AUTO) 16.5 % (13-45); MEAN CORPUSCULAR HEMOGLOBIN 34.6 pg (27.0-33.4); MEAN CORPUSCULAR HGB CONC 33.4 g/dL (32.0-36.0); MEAN CORPUSCULAR VOLUME 104 fl (80-97); PLATELET COUNT 187 10^3/uL (150-450); RED BLOOD COUNT 2.93 10^6/uL (4.35-5.55); RED CELL DISTRIBUTION WIDTH 18.4 % (11.5-14.0); SEGMENTED NEUTROPHILS % (AUTO) 75.7 % (42-78); TOTAL CELLS COUNTED % (AUTO) 100 %; WHITE BLOOD COUNT 17.4 10^3/uL (4.0-10.5)
[2017-11-12] MEDS: LORAZEPAM 0.5 MG TABLET PO PRN (06:31)
[2017-11-12 06:36] LABS: ALANINE AMINOTRANSFERASE 73 U/L (21-72); ALKALINE PHOSPHATASE 151 U/L (38-126); ANION GAP 15 (5-19); ASPARTATE AMINO TRANSFERASE 169 U/L (17-59); BILIRUBIN,TOTAL 4.8 mg/dL (0.2-1.3); BLOOD UREA NITROGEN 22 mg/dL (7-20); CALCIUM 9.8 mg/dL (8.4-10.2); CARBON DIOXIDE 19 mmol/L (22-30); CHLORIDE 109 mmol/L (98-107); GLUCOSE 113 mg/dL (75-110); POTASSIUM 4.2 mmol/L (3.6-5.0); SODIUM 142.6 mmol/L (137-145); TOTAL PROTEIN 7.7 g/dL (6.3-8.2)
[2017-11-12] MEDS: CYANOCOBALAMIN (VITAMIN B-12) 1,000 MCG TABLET PO SCH (09:35)
[2017-11-12] MEDS: SPIRONOLACTONE 25 MG TABLET PO SCH (09:35)
[2017-11-12] MEDS: BUSPIRONE HCL 10 MG TABLET PO SCH (09:35)
[2017-11-12] MEDS: PREDNISONE 10 MG TABLET PO SCH (09:35)
[2017-11-12] MEDS: FUROSEMIDE 20 MG TABLET PO SCH (09:35)
[2017-11-12] MEDS: DIVALPROEX SODIUM 250 MG TABLET.DR PO SCH (09:36)
[2017-11-12] MEDS: LIDOCAINE 5% (700 MG) TRANSDERMAL ADH..PATCH TP SCH (09:36)
[2017-11-12] MEDS: CLONIDINE HCL 0.1 MG TABLET PO SCH (09:36)
[2017-11-12] MEDS: MAGNESIUM OXIDE 400 MG TABLET PO SCH (09:36)
[2017-11-12 11:00] VITALS: BP 131/85
[2017-11-12] MEDS: NADOLOL 40 MG TABLET PO SCH (11:28)
--- NOTE | 2017-11-13 19:02 | PDOC DISCHARGE SUMMARY ---
General - Admit/Disc Date/PCP Admission Date/Primary Care Provider: 10/12/17 18:51 Discharge Date: 11/12/17 - Discharge Diagnosis (1) Leukocytosis Is this a current diagnosis for this admission?: Yes (2) Fluid overload Is this a current diagnosis for this admission?: Yes (3) Full code status Is this a current diagnosis for this admission?: Yes (4) Hyperammonemia Is this a current diagnosis for this admission?: Yes (5) Hypocalcemia Is this a current diagnosis for this admission?: Yes (6) Hypokalemia Is this a current diagnosis for this admission?: Yes (7) Sepsis Is this a current diagnosis for this admission?: Yes (8) Sinus tachycardia Is this a current diagnosis for this admission?: Yes (9) Spontaneous bacterial peritonitis Is this a current diagnosis for this admission?: Yes (10) Alcohol dependence with withdrawal Is this a current diagnosis for this admission?: Yes (11) Alcoholic liver disease Is this a current diagnosis for this admission?: Yes (12) Hypomagnesemia Is this a current diagnosis for this admission?: Yes (13) Hepatitis C Is this a current diagnosis for this admission?: Yes (14) Bipolar disorder Is this a current diagnosis for this admission?: Yes (15) Vitamin B12 deficiency Is this a current diagnosis for this admission?: Yes (16) Anemia Is this a current diagnosis for this admission?: Yes (17) Portal hypertension Is this a current diagnosis for this admission?: Yes - Additional Information Resuscitation Status: Full Code Discharge Diet: Other (Comments) Discharge Activity: Activity As Tolerated Prescriptions: Hydroxyzine HCl [Atarax 10 mg Tablet] 25 mg PO QHS 30 Days #30 tablet Ciprofloxacin HCl [Cipro 500 mg Tablet] 500 mg PO BID #14 tablet Cyanocobalamin (Vitamin B-12) [Vitamin B-12 1000 mcg Tablet] 1,000 mcg PO DAILY 30 Days #30 tablet Gabapentin 100 mg PO TID 30 Days #90 capsule Lactulose [Cephulac Syrup 20 gm/30 ml Udcup] 30 gm PO BID #473 ml Propranolol HCl [Inderal 20 mg Tablet] 20 mg PO Q12 #60 tab Home Medications: Folic Acid [Folvite 1 mg Tablet] 1 mg PO DAILY 10/12/17 Thiamine HCl [Thiamine 100 mg Tablet] 100 mg PO DAILY 10/12/17 Ciprofloxacin HCl [Cipro 500 mg Tablet] 500 mg PO BID #14 tablet 11/12/17 Cyanocobalamin (Vitamin B-12) [Vitamin B-12 1000 mcg Tablet] 1,000 mcg PO DAILY 30 Days #30 tablet 11/12/17 Gabapentin 100 mg PO TID 30 Days #90 capsule 11/12/17 Hydroxyzine HCl [Atarax 10 mg Tablet] 25 mg PO QHS 30 Days #30 tablet 11/12/17 Lactulose [Cephulac Syrup 20 gm/30 ml Udcup] 30 gm PO BID #473 ml 11/12/17 Propranolol HCl [Inderal 20 mg Tablet] 20 mg PO Q12 #60 tab 11/12/17 History of Present Illness Patient complains of: abdominal pain vomiting History of Present Illness: RAMBO MARTINEZ is a 32 year old male who presented to the emergency room with increased abdominal pain and chest pain. The patient's past medical history significant for alcohol abuse and polysubstance abuse. He has issues with chronic pancreatitis, hypertension, untreated hepatitis C and alcoholic cirrhosis. The patient reported increased abdominal pain for 2 days as well as multiple episodes of vomiting. The last time he vomited he had bright red blood in his emesis. He states he also has had a couple of loose stools but no intractable diarrhea. He has had no fever chills. No recent upper respiratory illness. He states he is having abdominal pain as well as back pain. He states he also has pain in his chest and feels as if he has heart palpitations at times. He states that he has no urinary complaints at this time. The patient does admit to drinking alcohol on the day of admission. At this point he states that he does not think that he can tolerate alcohol anymore because it just tears his stomach. He states that he would like for me to detox him here in the hospital. Hospital Course Hospital Course: Patient is a known chronic alcoholic with a history of chronic hepatitis C untreated who was admitted with abdominal pain nausea vomiting Patient was diagnosed of acute alcoholic hepatitis and liver failure Patient had a long hospitalization during which he went through alcohol withdrawal extremely belligerent confused he had to be treated His large doses of Ativan and Haldol Liver failure improved somewhat with steroids which were continued through his hospital stay Patient's condition stabilized Patient was treated for spontaneous bacterial peritonitis with antibiotics although he had very scant ascites Patient was discharged home with his mother with the plan for him to go to rehab the following day Upon discharge his mentation was appropriate and he was able to ambulate independently Physical Exam Vital Signs: Temp Pulse Resp BP Pulse Ox 97.7 F 102 H 20 131/85 H 95 11/12/17 10:58 11/12/17 10:58 11/12/17 10:58 11/12/17 10:58 11/12/17 10:58 Pulse Oximeter Continuous Start: 10/28/17 22: 21 Freq: RTQ4 Status: Complete Document 11/07/17 04:00 HCR (Rec: 11/07/17 06:00 HCR [email or web address]) Pulse Oximetry Assessment Oxygen Saturation (92-100) 95 Oxygen Delivery Method Room Air Fraction of Inspired Oxygen (FIO2) 21 Equipment Usage Equipment Standby Continuous SpO2 Machine # 9 Intake & Output 11/12/17 11/13/17 11/14/17 00:59 00:59 00:59 Intake Total 3028 507 Balance 3028 507 Weight 86.7 kg 87.3 kg Results Laboratory Results: 11/12/17 05:26 11/12/17 05:26 Impressions: KUB X-Ray 10/18/17 00:00 IMPRESSION: NO RADIOGRAPHIC EVIDENCE FOR ACUTE ABDOMINAL DISEASE. Abdomen Ultrasound 10/19/17 16:29 IMPRESSION: NO EVIDENCE FOR ASCITES. Head CT 10/22/17 00:00 IMPRESSION: NORMAL BRAIN CT WITHOUT CONTRAST. EVIDENCE OF ACUTE STROKE: NO. Abdomen MRI 11/09/17 14:19 IMPRESSION: NORMAL HEPATOBILIARY SYSTEM. NO STONES OR COMMON DUCT ABNORMALITIES. Chest/Abdomen CTA 11/10/17 11:11 IMPRESSION: No CT angio evidence of acute pulmonary emboli or thoracic aortic dissection. Hepatosplenomegaly with signs of portal hypertension Qualifiers - * PATIENT BEING DISCHARGED WITH ANY OF THE FOLLOWING DIAGNOSIS: No
== END 2017-11-12 11:55 | disposition home or self-care (01) | DRG 871 ==
LOC: ER 13:32 → EH 18:51 → UNDOADMIN 18:51 → 3S 21:36
PROVIDERS: ADMIT Internal Medicine; ATTEND Internal Medicine
PROC: 30233K1 Transfusion of Nonautologous Frozen Plasma into Peripheral Vein, Percutaneous Approach (ICD-10-PCS; principal; 2017-10-14)
DX: A41.9 Sepsis, unspecified organism (principal); K65.2 Spontaneous bacterial peritonitis; F10.231 Alcohol dependence with withdrawal delirium; K86.0 Alcohol-induced chronic pancreatitis; K76.6 Portal hypertension; I85.10 Secondary esophageal varices without bleeding; E87.2 Acidosis; D68.9 Coagulation defect, unspecified; E72.20 Disorder of urea cycle metabolism, unspecified; K70.31 Alcoholic cirrhosis of liver with ascites; K70.40 Alcoholic hepatic failure without coma; R65.20 Severe sepsis without septic shock; F17.210 Nicotine dependence, cigarettes, uncomplicated; F10.229 Alcohol dependence with intoxication, unspecified; F41.9 Anxiety disorder, unspecified; F31.9 Bipolar disorder, unspecified; B18.2 Chronic viral hepatitis C; I10 Essential (primary) hypertension; Y90.8 Blood alcohol level of 240 mg/100 ml or more; D64.9 Anemia, unspecified; E53.8 Deficiency of other specified B group vitamins; D72.829 Elevated white blood cell count, unspecified; F19.10 Other psychoactive substance abuse, uncomplicated; E87.6 Hypokalemia; E83.51 Hypocalcemia; M19.90 Unspecified osteoarthritis, unspecified site; E83.39 Other disorders of phosphorus metabolism; Z78.1 Physical restraint status; Z82.49 Family history of ischemic heart disease and other diseases of the circulatory system; Z82.3 Family history of stroke; Z88.2 Allergy status to sulfonamides; Z88.8 Allergy status to other drugs, medicaments and biological substances; Z86.73 Personal history of transient ischemic attack (TIA), and cerebral infarction without residual deficits
CPT/HCPCS: 36415; 36430; 70450; 71275; 74018; 74175; 74181; 76700; 76705; 80048; 80053; 80076; 80202; 80307; 81001; 82105; 82140; 82272; 82550; 82553; 82607; 82728; 82746; 82803; 82962; 83540; 83550; 83605; 83690; 83735; 84100; 84484; 85025; 85027; 85610; 85730; 86900; 86901; 87040; 87086; 93005; 93010; 93306; 93976; 94762; 96361; 96365; 96366; 96367; 96368; 96374; 96375; 99291; A9270-GY; J0692; J0696; J1170; J1630; J1650; J1652; J1940; J2060; J2270; J2300; J2405; J2543; J2765; J3370; J3411; J3475; J3480; J3490; J7030; J7050; J7060; J7512; P9017; P9047; S0028; S0119; S0164

== ENCOUNTER 2017-12-09 23:13 | Emergency (ER) | payer OTHER ==
--- NOTE | 2017-12-10 01:39 | ER Document Report ---
ED Medical Screen (RME) - General Chief Complaint: Foot Pain Stated Complaint: LEFT FOOT PAIN Time Seen by Provider: 12/10/17 01:02 Mode of Arrival: Wheelchair Information source: Patient TRAVEL OUTSIDE OF THE [place] IN LAST 30 DAYS: No - HPI Patient complains to provider of: left foot/ankle/leg pain Notes: 12/10/17 01:37 Patient is here with complaints of left foot, ankle, leg pain. The patient has a history of cirrhosis from alcoholism. He is on lactulose. He states that over the last 4 days he started to have some pain in the lateral aspect of the left foot and ankle. His pain has progressively gotten worse and has become swollen red and warm to the touch. States that he feels like the pain starts in his foot goes up to his knee. Pain is much worse with ambulation. He states that he had to use crutches today to ambulate. He denies any fever, but states that he has been feeling warm. Physical exam: Patient with swelling and redness to the left foot, ankle, distal lower leg. Tenderness to palpation. Normal pulse and sensation. Normal cap refill. An initial examination was made on the patient as part of the triage process, and it was determined a more comprehensive evaluation was necessary. Initial labs were ordered and patient was transferred to another provider in the ED who assumed care and finished evaluation and plan. - Related Data Allergies/Adverse Reactions: carisoprodol [From Soma] Allergy (Verified 06/26/17 16:38) Sulfa (Sulfonamide Antibiotics) Allergy (Verified 06/26/17 16:38) Past Medical History - Social History Chew tobacco use (# tins/day): No Frequency of alcohol use: None Drug Abuse: None - Past Medical History Cardiac Medical History: Reports: Hx Hypercholesterolemia, Hx Hypertension Pulmonary Medical History: Reports: Hx Bronchitis Neurological Medical History: Reports: Hx Cerebrovascular Accident - States he has had a TIA. Denies: Hx Seizures Renal/ Medical History: Denies: Hx Peritoneal Dialysis GI Medical History: Reports: Hx Cirrhosis, Hx Gastritis, Hx Hepatitis - Hepatitis-C, Hx Ulcer, Hx Endoscopy Musculoskeltal Medical History: Reports Hx Arthritis, Reports Hx Gout, Reports Hx Musculoskeletal Deformity, Reports Hx Musculoskeletal Trauma Psychiatric Medical History: Reports: Hx Anxiety, Hx Bipolar Disorder, Hx Post Traumatic Stress Disorder Comment Only: Hx Depression - anxiety Traumatic Medical History: Reports: Hx Fractures - Right hand Infectious Medical History: Reports: Hx Hepatitis - Hepatitis-C Past Surgical History: Reports: Hx Orthopedic Surgery - R hand - Immunizations Immunizations up to date: Yes Hx Diphtheria, Pertussis, Tetanus Vaccination: Yes History of Influenza Vaccine for 03/2017 - 08/2017 Season: Refused Physical Exam - Vital signs Vitals: Temp Pulse Resp BP Pulse Ox 99.4 F 103 H 18 125/86 H 96 12/09/17 23:18 12/09/17 23:18 12/09/17 23:18 12/09/17 23:18 12/09/17 23:18 Course - Vital Signs Vital signs: Temp Pulse Resp BP Pulse Ox 99.4 F 103 H 18 125/86 H 96 12/09/17 23:18 12/09/17 23:18 12/09/17 23:18 12/09/17 23:18 12/09/17 23:18
[2017-12-10 02:19] LABS: ALANINE AMINOTRANSFERASE 21 U/L (21-72); ALBUMIN 3.8 g/dL (3.5-5.0); ALKALINE PHOSPHATASE 250 U/L (38-126); ANION GAP 13 (5-19); ASPARTATE AMINO TRANSFERASE 62 U/L (17-59); BILIRUBIN,DIRECT 1.8 mg/dL (0.0-0.4); BILIRUBIN,TOTAL 2.2 mg/dL (0.2-1.3); BLOOD UREA NITROGEN 8 mg/dL (7-20); C-REACTIVE PROTEIN < 5.0 mg/L (<10.0); CALCIUM 9.3 mg/dL (8.4-10.2); CARBON DIOXIDE 21 mmol/L (22-30); CHLORIDE 109 mmol/L (98-107); GLUCOSE 100 mg/dL (75-110); POTASSIUM 4.2 mmol/L (3.6-5.0); SODIUM 143.2 mmol/L (137-145); TOTAL PROTEIN 7.7 g/dL (6.3-8.2)
[2017-12-10] MEDS ORDERED: KETOROLAC TROMETHAMINE INJ/PF 30 MG/1 ML SDV IV ONE (02:23)
[2017-12-10 02:33] LABS: INTERNATIONAL RATION (INR) 1.12
[2017-12-10 02:34] LABS: PARTIAL THROMBOPLASTIN TIME 42.7 SEC (23.5-35.8)
--- NOTE | 2017-12-10 02:37 | RADIOLOGY REPORT (SQ) ---
EXAM DESCRIPTION: XR ANKLE 3 VIEWS, XR FOOT 3 OR MORE VIEWS COMPLETED DATE/TME: 12/10/2017 01:35 CLINICAL HISTORY: 32 years, Male, swelling, redness, pain, no injury COMPARISON: 04/19/2013 FINDINGS: Left ankle: 3 views of the left ankle. No acute fracture or dislocation. Diffuse soft tissue edema. Tibial plafond and talar dome have normal alignment. No abnormalities involving the base of the fifth metatarsal. Left foot: 3 views of the left foot. No acute fracture or dislocation. No erosive osseous lesions. Normal osseous mineralization. IMPRESSION: 1. No acute fracture or dislocation. 2. Edema of the dorsal soft tissues of the foot as well as the ankle. 2011 [employer]- All Rights Reserved
[2017-12-10 02:44] LABS: ABSOLUTE EOSINOPHILS # (AUTO) 0.1 10^3/uL (0.0-0.6); ABSOLUTE MONOCYTES (AUTO) 0.4 10^3/uL (0.1-1.4); BASOPHILS % (AUTO) 0.6 % (0-2); EOSINOPHILS % (AUTO) 1.6 % (0-6); HEMATOCRIT 31.2 % (37.9-51.0); HEMOGLOBIN 10.5 g/dL (13.5-17.0); MEAN CORPUSCULAR HEMOGLOBIN 33.3 pg (27.0-33.4); MEAN CORPUSCULAR HGB CONC 33.8 g/dL (32.0-36.0); MONOCYTES % (AUTO) 6.4 % (3-13); PLATELET COUNT 216 10^3/uL (150-450); RED BLOOD COUNT 3.17 10^6/uL (4.35-5.55); RED CELL DISTRIBUTION WIDTH 14.1 % (11.5-14.0); SEGMENTED NEUTROPHILS % (AUTO) 61.4 % (42-78); TOTAL CELLS COUNTED % (AUTO) 100 %; WHITE BLOOD COUNT 6.5 10^3/uL (4.0-10.5)
[2017-12-10 02:47] LABS: MEAN CORPUSCULAR VOLUME 98 fl (80-97)
[2017-12-10] MEDS ORDERED: OXYCODONE-ACETAMINOPHEN 5-325 MG TABLET PO ONE (03:14)
[2017-12-10] MEDS ORDERED: MORPHINE SULFATE IR 30 MG TABLET PO ONE (03:15)
[2017-12-10] MEDS ORDERED: DOXYCYCLINE HYCLATE 100 MG TABLET PO ONE (03:19)
--- NOTE | 2017-12-10 03:19 | ER Document Report ---
ED Extremity Problem, Lower - General Chief Complaint: Foot Pain Stated Complaint: LEFT FOOT PAIN Time Seen by Provider: 12/10/17 01:02 Mode of Arrival: Wheelchair Notes: Patient is a 32-year-old male who presents with complaint of left foot pain, redness and swelling. This is been going on for approximately 4 days. Patient denies any history of same. Patient's past medical history includes cirrhosis and hep C. Patient denies any history of blood clots. Patient is not on any blood thinners. Patient denies any fever or trauma. TRAVEL OUTSIDE OF THE [place] IN LAST 30 DAYS: No - Related Data Allergies/Adverse Reactions: carisoprodol [From Soma] Allergy (Verified 06/26/17 16:38) Sulfa (Sulfonamide Antibiotics) Allergy (Verified 06/26/17 16:38) Past Medical History - General Information source: Patient - Social History Smoking Status: Former Smoker Chew tobacco use (# tins/day): No Frequency of alcohol use: None Drug Abuse: None Family History: CAD, CVA, Hyperlipidemia, Hypertension, Malignancy, Thyroid Disfunction Patient has suicidal ideation: No Patient has homicidal ideation: No - Past Medical History Cardiac Medical History: Reports: Hx Hypercholesterolemia, Hx Hypertension Pulmonary Medical History: Reports: Hx Bronchitis Neurological Medical History: Reports: Hx Cerebrovascular Accident - States he has had a TIA. Denies: Hx Seizures Renal/ Medical History: Denies: Hx Peritoneal Dialysis GI Medical History: Reports: Hx Cirrhosis, Hx Gastritis, Hx Hepatitis - Hepatitis-C, Hx Ulcer, Hx Endoscopy Musculoskeltal Medical History: Reports Hx Arthritis, Reports Hx Gout, Reports Hx Musculoskeletal Deformity, Reports Hx Musculoskeletal Trauma Psychiatric Medical History: Reports: Hx Anxiety, Hx Bipolar Disorder, Hx Post Traumatic Stress Disorder Comment Only: Hx Depression - anxiety Traumatic Medical History: Reports: Hx Fractures - Right hand Infectious Medical History: Reports: Hx Hepatitis - Hepatitis-C Past Surgical History: Reports: Hx Orthopedic Surgery - R hand - Immunizations Immunizations up to date: Yes Hx Diphtheria, Pertussis, Tetanus Vaccination: Yes Review of Systems - Review of Systems Constitutional: No symptoms reported EENT: No symptoms reported Cardiovascular: No symptoms reported Respiratory: No symptoms reported Gastrointestinal: No symptoms reported Genitourinary: No symptoms reported Male Genitourinary: No symptoms reported Musculoskeletal: No symptoms reported Skin: See HPI Hematologic/Lymphatic: No symptoms reported Neurological/Psychological: No symptoms reported Physical Exam - Vital signs Vitals: Temp Pulse Resp BP Pulse Ox 99.4 F 103 H 18 125/86 H 96 12/09/17 23:18 12/09/17 23:18 12/09/17 23:18 12/09/17 23:18 12/09/17 23:18 - Notes Notes: PHYSICAL EXAMINATION: GENERAL: Well-appearing, well-nourished and in no acute distress. HEAD: Atraumatic, normocephalic. EYES: Pupils equal round and reactive to light, extraocular movements intact, sclera anicteric, conjunctiva are normal. ENT: Nares patent, oropharynx clear without exudates. Moist mucous membranes. NECK: Normal range of motion, supple without lymphadenopathy LUNGS: Breath sounds clear to auscultation bilaterally and equal. No wheezes rales or rhonchi. HEART: Regular rate and rhythm without murmurs ABDOMEN: Soft, nontender, nondistended abdomen. No guarding, no rebound. No masses appreciated. Musculoskeletal: Normal range of motion, erythema, swelling and edema noted to left foot. No streaking noted. No cyanosis. NEUROLOGICAL: Cranial nerves grossly intact. Normal speech. Normal sensory, motor exams PSYCH: Normal mood, normal affect. SKIN: Warm, Dry, normal turgor, no rashes or lesions noted. Course - Re-evaluation Re-evalutation: 32-year-old male patient presents with chief complaint of left foot pain, redness and swelling that has been ongoing for approximately 4 days, consistent with cellulitis. Pulses are present distant to area of concern, cap refill less than 3 seconds, normal sensation. Triage provider ordered initial workup which reveals a normal CBC, chemistry is unchanged from patient's baseline. C- reactive protein is less than 5.0. Patient is afebrile. Patient was medicated with 15 mg of Toradol which she reports did not help. Dr. Pelayo came to bedside to perform a bedside ultrasound to evaluate for DVT due to swelling unilaterally. Unofficially there is no DVT as all deep veins are collapsible. Patient remains normotensive, is not tachycardic, patient will be discharged home with oral antibiotics as well as pain medication. Patient instructed to return to the emergency department if he develops worsening pain, worsening swelling, increased redness or streaking up his leg accompanied by fever. - Vital Signs Vital signs: Temp Pulse Resp BP Pulse Ox 99.0 F 93 16 120/68 95 12/10/17 03:24 12/10/17 03:24 12/10/17 03:24 12/10/17 03:24 12/10/17 03:24 - Laboratory Result Diagrams: 12/10/17 02:35 12/10/17 01:54 Laboratory results interpreted by me: 12/10/17 12/10/17 12/10/17 01:54 01:54 02:35 RBC 3.17 L Hgb 10.5 L Hct 31.2 L MCV 98 H D RDW 14.1 H APTT 42.7 H Chloride 109 H Carbon Dioxide 21 L Total Bilirubin 2.2 H Direct Bilirubin 1.8 H AST 62 H Alkaline Phosphatase 250 H Discharge - Discharge Clinical Impression: Cellulitis of left lower extremity Condition: Stable Disposition: HOME, SELF-CARE Additional Instructions: Cellulitis You have an infection of your skin and underlying soft tissues called cellulitis. This is due to bacteria, which can enter through any break in the skin, or even through an irritated hair follicle. Untreated, cellulitis will usually worsen. Antibiotics are required. Usually, warm packs or warm soaks, and elevation of the infected area are recommended. You should start getting better within 24 to 36 hours. Most infections respond quickly to the right medication. Follow-up care is important, however, to check for abscess (boil) formation, unsuspected foreign body, or resistant infection. If you develop fever, chills, or if the area of infection is becoming rapidly more swollen or painful, call the doctor at once. Doxycycline Doxycycline (Vibramycin, Doryx) is an antibiotic of the tetracycline family. This type of drug is useful for infections of the respiratory tract and genital tract, and is sometimes used for intestinal infections. Unlike most tetracyclines, doxycycline can be taken with food. It is longer acting, and (usually) less prone to side effects than regular tetracycline. Tetracycline antibiotics can stain immature teeth and SHOULD NOT BE TAKEN BY CHILDREN, NURSING MOTHERS, OR WOMEN. Tetracyclines can make you more prone to sunburn. Abdominal cramping, nausea, and diarrhea are occasional side effects. Women may experience vaginal yeast infections. Call the doctor at once if you develop hives, itching, shortness of breath , or lightheadedness. Oral Narcotic Medication You have been given a prescription for pain control. This medication is a narcotic. It's best taken with food, as nausea can result if taken on an empty stomach. Don't operate machinery or drive within six hours of taking this medication. Do not combine this medicine with alcohol, or with any medication which can cause sedation (such as cold tablets or sleeping pills) unless you get permission from the physician. Narcotics tend to cause constipation. If possible, drink plenty of fluids and eat a diet high in fiber and fruits. Please take all medications as prescribed. Please return to the emergency department if you develop worsening pain, increasing redness or swelling, streaking or fever. Prescriptions: Doxycycline Hyclate 100 mg PO BID #14 capsule Morphine Sulfate [Morphine Ir 15 Mg Tablet] 15 mg PO Q4H PRN #12 tablet PRN Reason: Referrals: [facility] [Provider Group] - Follow up as needed [facility] [Provider Group] - Follow up as needed
[2017-12-10 03:44] VITALS: BP 120/68
== END 2017-12-10 03:45 | disposition home or self-care (01) ==
LOC: ER 23:13
DX: L03.116 Cellulitis of left lower limb (principal); M79.672 Pain in left foot; E78.00 Pure hypercholesterolemia, unspecified; I10 Essential (primary) hypertension; Z88.2 Allergy status to sulfonamides; Z86.73 Personal history of transient ischemic attack (TIA), and cerebral infarction without residual deficits; Z86.19 Personal history of other infectious and parasitic diseases; Z87.891 Personal history of nicotine dependence
CPT/HCPCS: 99284; 96374; 36415; 85025; 85610; 85730; 86140; 80053; 73610; 73630; J1885

== ENCOUNTER 2017-12-17 06:25 | Emergency (ER) | payer OTHER ==
--- NOTE | 2017-12-17 08:00 | ER Document Report ---
ED General - General Chief Complaint: Foot Pain Stated Complaint: SWOLLEN FOOT Time Seen by Provider: 12/17/17 07:21 Mode of Arrival: Ambulatory Information source: Patient TRAVEL OUTSIDE OF THE [place] IN LAST 30 DAYS: No - HPI Notes: 32-year-old male with a history of cirrhosis of liver, hepatitis C, hypertension and gout with IV drug use presents to the ED for reevaluation of left foot swelling and pain after he was seen in the ED a week ago, treated for cellulitis with oral doxycycline on 12/10/17. Patient also reports he is experiencing left elbow pain that radiates to his left shoulder, onset approximately 2 days ago. Patient also reports vomiting, he states this is been attributed to his cirrhosis. Pain is 9/10, sharp and constant. Has not tried any [id number] pain medications. Denies fevers, chills, chest pain ,palpitations, shortness of breath, dyspnea, nausea, vomiting, diarrhea, abdominal pain, hematuria,blurred vision, double vision, loss of vision, speech changes, LH, dizziness, syncope, headaches, wheezing, ST, URI, neck pain, weakness, bowel or bladder dysfunction, saddle anesthesia, numbness or tingling in bilateral upper or lower extremities equally, muscle paralysis, weakness in bilateral upper or lower extremities equally or rash. - Related Data Allergies/Adverse Reactions: carisoprodol [From Soma] Allergy (Verified 06/26/17 16:38) Sulfa (Sulfonamide Antibiotics) Allergy (Verified 06/26/17 16:38) Past Medical History - General Information source: Patient - Social History Smoking Status: Current Every Day Smoker Family History: CAD, CVA, Hyperlipidemia, Hypertension, Malignancy, Thyroid Disfunction - Past Medical History Cardiac Medical History: Reports: Hx Hypercholesterolemia, Hx Hypertension Pulmonary Medical History: Reports: Hx Bronchitis Neurological Medical History: Reports: Hx Cerebrovascular Accident - States he has had a TIA. Denies: Hx Seizures Renal/ Medical History: Denies: Hx Peritoneal Dialysis GI Medical History: Reports: Hx Cirrhosis, Hx Gastritis, Hx Hepatitis - Hepatitis-C, Hx Ulcer, Hx Endoscopy Musculoskeltal Medical History: Reports Hx Arthritis, Reports Hx Gout, Reports Hx Musculoskeletal Deformity, Reports Hx Musculoskeletal Trauma Psychiatric Medical History: Reports: Hx Anxiety, Hx Bipolar Disorder, Hx Post Traumatic Stress Disorder Comment Only: Hx Depression - anxiety Traumatic Medical History: Reports: Hx Fractures - Right hand Infectious Medical History: Reports: Hx Hepatitis - Hepatitis-C Past Surgical History: Reports: Hx Orthopedic Surgery - R hand - Immunizations Immunizations up to date: Yes Hx Diphtheria, Pertussis, Tetanus Vaccination: Yes Review of Systems - Review of Systems Constitutional: No symptoms reported EENT: No symptoms reported Cardiovascular: No symptoms reported Respiratory: No symptoms reported Gastrointestinal: No symptoms reported Genitourinary: No symptoms reported Male Genitourinary: No symptoms reported Musculoskeletal: See HPI Skin: See HPI Hematologic/Lymphatic: No symptoms reported Neurological/Psychological: No symptoms reported Physical Exam - Vital signs Vitals: Temp Pulse Resp BP Pulse Ox 99.0 F 95 18 120/71 97 12/17/17 06:38 12/17/17 06:38 12/17/17 06:38 12/17/17 06:38 12/17/17 06:38 - Notes Notes: PHYSICAL EXAMINATION: GENERAL: Well-appearing, well-nourished and in no acute distress. HEAD: Atraumatic, normocephalic. EYES: Pupils equal round and reactive to light, extraocular movements intact, sclera anicteric, conjunctiva are normal. ENT: Nares patent, oropharynx clear without exudates. Moist mucous membranes. NECK: Normal range of motion, supple without lymphadenopathy LUNGS: Breath sounds clear to auscultation bilaterally and equal. No wheezes rales or rhonchi. HEART: Regular rate and rhythm without murmurs ABDOMEN: Soft, nontender, nondistended abdomen. No guarding, no rebound. No masses appreciated. Musculoskeletal: Normal range of motion, no pitting or edema. No cyanosis. left elbow with noted swelling at joint without pain on supination, pronation, extension and flexion. negative , Early Breastfeeding Care Specialist + 2 BUE equally. APROM in shoulder. DTR +2 in BUE equally. negative drop arm, neer sign, dial test, slightly positive impingement sign all on right. Full motor and sensory function in MANOHAR. No vascular compromise. No noted swelling, abrasions, ecchymosis, lacerations, scars of recent trauma. No erythema or induration noted to area. Intact median, ulnar and radial nerves bilaterally and equally. left foot and left ankle with swelling that ends up to his distal tib/fib, slight erythema, tenderness on lateral aspect of ankle and top of left foot. pain with inversion. squeeze test negative bilaterally. dtr +2 BLE. Limited APROM. distal pulses + 2 BLE equally. Full motor and sensory function of bilateral lower extremities. No noted open wounds or abrasion. Normal gait. No vascular compromise. Peroneal nerve is intact with strong eversion and plantar flexion. Negative anterior drawer test. NEUROLOGICAL: Cranial nerves grossly intact. Normal speech, normal gait. Normal sensory, motor exams PSYCH: Normal mood, normal affect. SKIN: Warm, Dry, normal turgor, no rashes or lesions noted. Able to see the old track terrazas on bilateral ECGs and lower extremities and in a linear pattern Course - Re-evaluation Re-evalutation: 12/17/17 10:14 32-year-old male who has a low-grade fever of 99F. His vitals are otherwise stable with complaints of having pain to his left ankle, left foot and left elbow, was recently diagnosed with cellulitis and started on doxycycline course. CBC negative for leukocytosis. CMP negative for any renal or hepatic dysfunction, no electrolyte disturbances, CRP is 5, ESR is 105 which is likely elevated due to his infection. Patient's pulses are palpable bilaterally, warmth to touch, full motor and sensory function of bilateral lower extremities equally. Patient remains afebrile vitals stable, no distress. Consulted case discussed with Dr. Nino Pelayo, ER attending, After reviewing pertinent clinical, laboratory and diagnostic findings felt that if his ultrasound if he was negative for DVT could go home with continuing antibiotic therapy. 1130- patient remains afebrile, vitals stable and in no distress. 1230, venous ultrasound negative, discussed with patient the importance of applying heat, elevation, taking antibiotics as directed with food, monitoring ankle and legs daily, following with primary care provider within the next 24-48 hours, I have reevaluated this patient multiple times and no significant life threatening changes, no signs of toxicity, sepsis or peritonitis are noted. The patient and I have discussed the diagnosis and risks, and we agree with discharging home and close follow-up. We also discussed returning to the Emergency Department immediately if new or worsening symptoms occur with the understanding that symptoms and presentations can change. At this time will discharge with return precautions and follow-up recommendations. Verbal discharge instructions given a the bedside and opportunity for questions given. We have discussed the symptoms which are most concerning (e.g., changing or worsening pain, fever, numbness, weakness, cool or painful digits) that necessitate immediate return. Medication warnings reviewed. All questions and concerns answered by this provider. Patient is in agreement with this plan and has verbalized understanding of return precautions and the need for primary care follow-up in the next 24-72 hours. Patient verbalized understanding of plan of care and agree with plan of care. - Vital Signs Vital signs: Temp Pulse Resp BP Pulse Ox 97.6 F 66 16 114/65 100 12/17/17 14:08 12/17/17 14:08 12/17/17 12:00 12/17/17 14:08 12/17/17 14:08 - Laboratory Result Diagrams: 12/17/17 08:30 12/17/17 08:30 Laboratory results interpreted by me: 12/17/17 12/17/17 12/17/17 08:30 08:30 08:30 RBC 3.57 L Hgb 11.8 L Hct 34.9 L MCV 98 H RDW 14.3 H ESR 105 H APTT 44.7 H Total Bilirubin 2.1 H Direct Bilirubin 1.8 H AST 63 H Alkaline Phosphatase 259 H Total Protein 8.5 H Discharge - Discharge Clinical Impression: Cellulitis of foot without toes, left, Swelling of left elbow Condition: Stable Disposition: HOME, SELF-CARE Instructions: Cellulitis ([facility]), MRSA Cellulitis ([facility]) Additional Instructions: CELLULITIS: You have an infection of your skin and underlying soft tissues called cellulitis. This is due to bacteria, which can enter through any break in the skin, or even through an irritated hair follicle. Untreated, cellulitis will usually worsen. Antibiotics are required. Usually, warm packs or warm soaks, and elevation of the infected area are recommended. You should start getting better within 24 to 36 hours. Most infections respond quickly to the right medication. Follow-up care is important, however, to check for abscess (boil) formation, unsuspected foreign body, or resistant infection. If you develop fever, chills, or if the area of infection is becoming rapidly more swollen or painful, call the doctor at once. MRSA CELLULITIS: You have an infection of your skin and underlying soft tissues called cellulitis. This is due to bacteria, which can enter through any break in the skin, or even through an irritated hair follicle. Untreated, cellulitis will usually worsen and may form an abscess which requires draining. Although many bacterial organisms can cause cellulitis and abscess formations, the most likely bacteria is Methicillin-Resistant Staph Aureus, or MRSA for short. Antibiotics are required. Usually, warm packs or warm soaks, and elevation of the infected area are recommended. You should start getting better within 24 to 36 hours. Most infections respond quickly to the right medication. Follow-up care is important, however, to check for abscess (boil) formation, unsuspected foreign body, or resistant infection. If you develop fever, chills, or if the area of infection is becoming rapidly more swollen or painful, call the doctor at once. ANTIBIOTIC THERAPY: You have been given an antibiotic prescription. It's important that you take all the medication, unless instructed otherwise by your physician. Failure to complete the entire course can result in relapse of your condition. Common side effects of antibiotics include nausea, intestinal cramping, or diarrhea. Women may develop vaginal yeast infections, and babies can get yeast (thrush) in the mouth following the use of antibiotics. Contact your physician if you develop significant side effects from this medication. Allergy to this antibiotic can result in hives, wheezing, faintness, or itching. If symptoms of allergy occur, stop the medication and call the doctor. DOXYCYCLINE: Doxycycline (Vibramycin, Doryx) is an antibiotic of the tetracycline family. This type of drug is useful for infections of the respiratory tract and genital tract, and is sometimes used for intestinal infections. Unlike most tetracyclines, doxycycline can be taken with food. It is longer acting, and (usually) less prone to side effects than regular tetracycline. Tetracycline antibiotics can stain immature teeth and SHOULD NOT BE TAKEN BY CHILDREN, NURSING MOTHERS, OR WOMEN. Tetracyclines can make you more prone to sunburn. Abdominal cramping, nausea, and diarrhea are occasional side effects. Women may experience vaginal yeast infections. Call the doctor at once if you develop hives, itching, shortness of breath , or lightheadedness. CLINDAMYCIN: You have been given a prescription for the antibiotic clindamycin. It is often prescribed for infections in the mouth, such as dental infections or abscesses, and for skin infections due to MRSA. It's important that you take all the medication, unless instructed otherwise by your physician. Failure to complete the entire course can result in relapse of your condition. Common side effects of antibiotics include nausea, intestinal cramping, or diarrhea. Women may develop vaginal yeast infections, and babies can get yeast (thrush) in the mouth following the use of antibiotics. Contact your physician if you develop significant side effects from this medication. Allergy to this antibiotic can result in hives, wheezing, faintness, or itching. If symptoms of allergy occur, stop the medication and call the doctor. ORAL NARCOTIC MEDICATION: You have been given a prescription for pain control. This medication is a narcotic. It's best taken with food, as nausea can result if taken on an empty stomach. Don't operate machinery or drive within six hours of taking this medication. Do not combine this medicine with alcohol, or with any medication which can cause sedation (such as cold tablets or sleeping pills) unless you get permission from the physician. Narcotics tend to cause constipation. If possible, drink plenty of fluids and eat a diet high in fiber and fruits. Please be aware that prescription narcotics also have the potential for abuse. People become addicted to these medications because of the general sense of wellbeing that they induce. This feeling along with a significant reduction in tension, anxiety, and aggression provides a stimulating seductive quality to these drugs. Once your pain is under control, we encourage you to discard your unused narcotics. FOLLOW-UP CARE: If you have been referred to a physician for follow-up care, call the physician s office for an appointment as you were instructed or within the next two days. If you experience worsening or a significant change in your symptoms, notify the physician immediately or return to the Emergency Department at any time for re-evaluation. Return immediately for any new or worsening symptoms. Follow up with primary care provider, call tomorrow to make followup appointment. Prescriptions: Doxycycline Hyclate 100 mg PO BID #14 capsule Referrals: SUZAN DENSON MD [ACTIVE STAFF] - Follow up tomorrow (1-2 days)
[2017-12-17] MEDS ORDERED: KETOROLAC TROMETHAMINE INJ/PF 30 MG/1 ML SDV IV ONE (08:01)
[2017-12-17] MEDS ORDERED: NORMAL SALINE 1000 ML 1,000 ML IV ONE (08:02)
[2017-12-17 09:00] LABS: ABSOLUTE BASOPHILS # (AUTO) 0.1 10^3/uL (0.0-0.2); ABSOLUTE EOSINOPHILS # (AUTO) 0.2 10^3/uL (0.0-0.6); ABSOLUTE LYMPHOCYTES (AUTO) 1.6 10^3/uL (0.5-4.7); ABSOLUTE MONOCYTES (AUTO) 0.4 10^3/uL (0.1-1.4); ABSOLUTE NEUT (AUTO) 5.3 10^3/uL (1.7-8.2); BASOPHILS % (AUTO) 0.7 % (0-2); EOSINOPHILS % (AUTO) 2.5 % (0-6); HEMATOCRIT 34.9 % (37.9-51.0); HEMOGLOBIN 11.8 g/dL (13.5-17.0); LYMPHOCYTES % (AUTO) 20.6 % (13-45); MEAN CORPUSCULAR HGB CONC 33.8 g/dL (32.0-36.0); MEAN CORPUSCULAR VOLUME 98 fl (80-97); PLATELET COUNT 238 10^3/uL (150-450); RED BLOOD COUNT 3.57 10^6/uL (4.35-5.55); RED CELL DISTRIBUTION WIDTH 14.3 % (11.5-14.0); SEGMENTED NEUTROPHILS % (AUTO) 71.2 % (42-78); TOTAL CELLS COUNTED % (AUTO) 100 %; WHITE BLOOD COUNT 7.5 10^3/uL (4.0-10.5)
--- NOTE | 2017-12-17 09:05 | RADIOLOGY REPORT (SQ) ---
EXAM DESCRIPTION: ANKLE LEFT COMPLETE COMPLETED DATE/TIME: 12/17/2017 8:21 am REASON FOR STUDY: left foot/ankle with cellulitis, on doxy x 1 week, COMPARISON: None. NUMBER OF VIEWS: Three views. TECHNIQUE: AP, lateral, and oblique radiographic images acquired of the left ankle. LIMITATIONS: None. FINDINGS: MINERALIZATION: Normal. BONES: No acute fracture or dislocation. No worrisome bone lesions. JOINTS: Small tibiotalar joint effusion. No disruption of the ankle mortise. SOFT TISSUES: Lateral malleolar soft tissue swelling. No radiopaque foreign body. OTHER: No other significant finding. IMPRESSION: Lateral soft tissue swelling and small ankle joint effusion. No acute fracture or malalignment TECHNICAL DOCUMENTATION: JOB ID: [id number] [employer]- All Rights Reserved Reading location - IP/workstation name: [email or web address]
--- NOTE | 2017-12-17 09:10 | RADIOLOGY REPORT (SQ) ---
EXAM DESCRIPTION: ELBOW LEFT OVER 2 VIEWS COMPLETED DATE/TIME: 12/17/2017 8:21 am REASON FOR STUDY: left foot/ankle with cellulitis, on doxy x 1 week, COMPARISON: None. NUMBER OF VIEWS: Four views. TECHNIQUE: AP, lateral, and both oblique radiographic images acquired of the left elbow. LIMITATIONS: None. FINDINGS: MINERALIZATION: Normal. BONES: No acute fracture or dislocation. No worrisome bone lesions. JOINT: No effusion. SOFT TISSUES: No soft tissue swelling. No foreign body. OTHER: No other significant finding. IMPRESSION: NEGATIVE STUDY OF THE LEFT ELBOW. NO RADIOGRAPHIC EVIDENCE OF ACUTE INJURY. TECHNICAL DOCUMENTATION: JOB ID: [id number] [employer]- All Rights Reserved Reading location - IP/workstation name: [email or web address]
--- NOTE | 2017-12-17 09:11 | RADIOLOGY REPORT (SQ) ---
EXAM DESCRIPTION: FOOT LEFT COMPLETE COMPLETED DATE/TIME: 12/17/2017 8:21 am REASON FOR STUDY: left foot/ankle with cellulitis, on doxy x 1 week, COMPARISON: None. NUMBER OF VIEWS: Three views. TECHNIQUE: AP, lateral and oblique radiographic images acquired of the left foot. LIMITATIONS: None. FINDINGS: MINERALIZATION: Normal. BONES: No acute fracture or dislocation. No worrisome bone lesions. JOINTS: No effusions. SOFT TISSUES: No soft tissue swelling. No foreign body. OTHER: No other significant finding. IMPRESSION: NEGATIVE STUDY OF THE LEFT FOOT. NO RADIOGRAPHIC EVIDENCE OF ACUTE INJURY. TECHNICAL DOCUMENTATION: JOB ID: [id number] [employer]- All Rights Reserved Reading location - IP/workstation name: [email or web address]
[2017-12-17 09:15] LABS: INTERNATIONAL RATION (INR) 1.16; PROTHROMBIN TIME 15.4 SEC (11.4-15.4)
[2017-12-17 09:16] LABS: PARTIAL THROMBOPLASTIN TIME 44.7 SEC (23.5-35.8)
[2017-12-17 09:22] LABS: ALANINE AMINOTRANSFERASE 21 U/L (21-72); ALBUMIN 4.3 g/dL (3.5-5.0); ALKALINE PHOSPHATASE 259 U/L (38-126); ANION GAP 16 (5-19); ASPARTATE AMINO TRANSFERASE 63 U/L (17-59); BILIRUBIN,DIRECT 1.8 mg/dL (0.0-0.4); BILIRUBIN,TOTAL 2.1 mg/dL (0.2-1.3); BLOOD UREA NITROGEN 12 mg/dL (7-20); CARBON DIOXIDE 22 mmol/L (22-30); CHLORIDE 106 mmol/L (98-107); GLUCOSE 98 mg/dL (75-110); POTASSIUM 4.2 mmol/L (3.6-5.0); SODIUM 143.8 mmol/L (137-145); TOTAL PROTEIN 8.5 g/dL (6.3-8.2); URIC ACID 6.3 mg/dL (3.5-8.5)
[2017-12-17 09:39] LABS: ERYTHROCYTE SEDIMENTATION RATE 105 mm/hr (0-15)
[2017-12-17] MEDS ORDERED: MORPHINE SULFATE 10 MG/ML INJ IV ONE (09:46)
[2017-12-17 10:56] LABS: C-REACTIVE PROTEIN 5.4 mg/L (<10.0)
[2017-12-17 14:14] VITALS: BP 114/65
--- NOTE | 2017-12-17 22:04 | XCELERA REPORT ---
[address] [address] Lower Extremity Venous Evaluation Name: RAMBO MARTINEZ Age: 32 yrs Gender: Male : 1985 Patient Status: Emergency Patient Location: ER Study Date: 12/17/2017 01:20 PM Procedure: Color flow and duplex imaging of the veins of the left lower extremity as well as the right Common Femoral vein. Reason For Study: pain left leg / Hx clots Ordering Physician: WILFREDO MOLINA Performed By: Lis Avitia Right Sided Venous Evaluation The right common femoral vein is fully compressible. Spontaneous and phasic flow is present in the right common femoral vein. Left Sided Venous Evaluation Normal vessel filling wall to wall, compression and augmentation as well as Colour flow down to the infrageniculate veins. Interpretation Summary No duplex evidence of DVT or obstruction in the left lower extremity nor in the right Common Femoral vein. : WILFREDO MOLINA > Ziyad Gavin
== END 2017-12-17 14:14 | disposition home or self-care (01) ==
LOC: ER 06:25
DX: L03.116 Cellulitis of left lower limb (principal); M79.89 Other specified soft tissue disorders
CPT/HCPCS: 99284; 96361; 96374; 96375; 36415; 87040; 84550; 85025; 85652; 85610; 85730; 86140; 80053; 83605; 93971 ×2; 73610; 73080; 73630; J1885; J2270; J7030

== ENCOUNTER → 2017-12-22 | Outpatient (CLI) | payer OTHER ==
[2017-12-22 11:56] LABS: ABSOLUTE LYMPHOCYTES (AUTO) 1.1 10^3/uL (0.5-4.7); ABSOLUTE MONOCYTES (AUTO) 0.2 10^3/uL (0.1-1.4); ABSOLUTE NEUT (AUTO) 4.9 10^3/uL (1.7-8.2); BASOPHILS % (AUTO) 0.5 % (0-2); EOSINOPHILS % (AUTO) 0.3 % (0-6); HEMATOCRIT 33.4 % (37.9-51.0); HEMOGLOBIN 11.5 g/dL (13.5-17.0); LYMPHOCYTES % (AUTO) 17.4 % (13-45); MEAN CORPUSCULAR HEMOGLOBIN 32.6 pg (27.0-33.4); MEAN CORPUSCULAR HGB CONC 34.4 g/dL (32.0-36.0); MEAN CORPUSCULAR VOLUME 95 fl (80-97); MONOCYTES % (AUTO) 2.9 % (3-13); PLATELET COUNT 255 10^3/uL (150-450); RED BLOOD COUNT 3.52 10^6/uL (4.35-5.55); RED CELL DISTRIBUTION WIDTH 14.4 % (11.5-14.0); SEGMENTED NEUTROPHILS % (AUTO) 78.9 % (42-78); TOTAL CELLS COUNTED % (AUTO) 100 %; WHITE BLOOD COUNT 6.2 10^3/uL (4.0-10.5)
[2017-12-22 12:07] LABS: INTERNATIONAL RATION (INR) 1.18; PROTHROMBIN TIME 15.6 SEC (11.4-15.4)
[2017-12-22 12:22] LABS: BILIRUBIN,TOTAL 1.7 mg/dL (0.2-1.3); URIC ACID 6.3 mg/dL (3.5-8.5)
[2017-12-22 12:37] LABS: ERYTHROCYTE SEDIMENTATION RATE 106 mm/hr (0-15)
== END ==
LOC: CCC 10:33
DX: B18.2 Chronic viral hepatitis C (principal); M10.9 Gout, unspecified; K74.60 Unspecified cirrhosis of liver
CPT/HCPCS: 36415; 82247; 83036; 84443; 84450; 84460; 84550; 85025; 85610; 85652

== ENCOUNTER → 2018-01-11 | Outpatient (CLI) | payer OTHER ==
[2018-01-11 13:53] LABS: ABSOLUTE BASOPHILS # (AUTO) 0.1 10^3/uL (0.0-0.2); ABSOLUTE EOSINOPHILS # (AUTO) 0.2 10^3/uL (0.0-0.6); ABSOLUTE LYMPHOCYTES (AUTO) 2.3 10^3/uL (0.5-4.7); ABSOLUTE MONOCYTES (AUTO) 0.6 10^3/uL (0.1-1.4); ABSOLUTE NEUT (AUTO) 8.1 10^3/uL (1.7-8.2); BASOPHILS % (AUTO) 0.6 % (0-2); EOSINOPHILS % (AUTO) 1.8 % (0-6); HEMATOCRIT 37.4 % (37.9-51.0); HEMOGLOBIN 12.6 g/dL (13.5-17.0); LYMPHOCYTES % (AUTO) 20.4 % (13-45); MEAN CORPUSCULAR HEMOGLOBIN 30.5 pg (27.0-33.4); MEAN CORPUSCULAR HGB CONC 33.7 g/dL (32.0-36.0); MONOCYTES % (AUTO) 5.1 % (3-13); PLATELET COUNT 374 10^3/uL (150-450); RED BLOOD COUNT 4.13 10^6/uL (4.35-5.55); RED CELL DISTRIBUTION WIDTH 14.6 % (11.5-14.0); SEGMENTED NEUTROPHILS % (AUTO) 72.1 % (42-78); TOTAL CELLS COUNTED % (AUTO) 100 %; WHITE BLOOD COUNT 11.2 10^3/uL (4.0-10.5)
[2018-01-11 14:10] LABS: MEAN CORPUSCULAR VOLUME 91 fl (80-97)
[2018-01-11 14:39] LABS: ERYTHROCYTE SEDIMENTATION RATE 56 mm/hr (0-15)
[2018-01-12 16:40] LABS: A/G RATIO 0.9 (0.7-1.7); ALBUMIN 2 3.4 g/dL (2.9-4.4); ALPHA-2-GLOBULIN 2 0.8 g/dL (0.4-1.0); BETA GLOBULINS 1.3 g/dL (0.7-1.3); GAMMA GLOBULIN 1.2 g/dL (0.4-1.8); GLOBULIN TOTAL 3.6 g/dL (2.2-3.9); MONOCLONAL SPIKE Not Observed g/dL (Not Observ)
== END ==
LOC: CCC 12:37
DX: M13.80 Other specified arthritis, unspecified site (principal)
CPT/HCPCS: 36415; 84165; 84550; 85025; 85652; 86038; 86430

== ENCOUNTER 2018-03-23 06:04 | Inpatient (IN) | payer OTHER ==
[2018-03-23] MEDS ORDERED: NORMAL SALINE 1000 ML 1,000 ML IV ONE (06:41)
[2018-03-23] MEDS ORDERED: ONDANSETRON HCL INJ/PF 4 MG/2 ML SDV IV ONE ×2 (06:41→09:26)
[2018-03-23] MEDS ORDERED: MORPHINE SULFATE 10 MG/ML INJ IV ONE ×2 (06:49→09:26)
--- NOTE | 2018-03-23 06:49 | ER Document Report ---
ED Medical Screen (RME) - General Chief Complaint: Abdominal Pain Stated Complaint: FLANK PAIN Time Seen by Provider: 03/23/18 06:38 Notes: Patient is a 32-year-old male with extensive history of liver failure and cirrhosis presenting to the emergency department complaining of right upper quadrant and epigastric abdominal pain. Patient states he was in the hospital a little over a month ago for liver failure. States his cirrhosis is due to alcohol, admits to continued EtOH use. Patient also admits to vomiting, denies fever, diarrhea, chest pain, shortness of breath. Physical exam: Epigastric and right upper quadrant pain positive Collazo sign. Lung sounds clear to equal all costa. I have greeted and performed a rapid initial assessment of this patient. A comprehensive ED assessment and evaluation of the patient, analysis of test results and completion of the medical decision making process will be conducted by additional ED providers. TRAVEL OUTSIDE OF THE [place] IN LAST 30 DAYS: No - Related Data Allergies/Adverse Reactions: carisoprodol [From Soma] Allergy (Verified 06/26/17 16:38) Sulfa (Sulfonamide Antibiotics) Allergy (Verified 06/26/17 16:38) Past Medical History - Past Medical History Cardiac Medical History: Reports: Hx Hypercholesterolemia, Hx Hypertension Pulmonary Medical History: Reports: Hx Bronchitis Neurological Medical History: Reports: Hx Cerebrovascular Accident - States he has had a TIA. Denies: Hx Seizures Renal/ Medical History: Denies: Hx Peritoneal Dialysis GI Medical History: Reports: Hx Cirrhosis, Hx Gastritis, Hx Hepatitis - Hepatitis-C, Hx Ulcer, Hx Endoscopy Musculoskeltal Medical History: Reports Hx Arthritis, Reports Hx Gout, Reports Hx Musculoskeletal Deformity, Reports Hx Musculoskeletal Trauma Psychiatric Medical History: Reports: Hx Anxiety, Hx Bipolar Disorder, Hx Post Traumatic Stress Disorder Comment Only: Hx Depression - anxiety Traumatic Medical History: Reports: Hx Fractures - Right hand Infectious Medical History: Reports: Hx Hepatitis - Hepatitis-C Past Surgical History: Reports: Hx Orthopedic Surgery - R hand - Immunizations Immunizations up to date: Yes Hx Diphtheria, Pertussis, Tetanus Vaccination: Yes History of Influenza Vaccine for 03/2017 - 08/2017 Season: Refused Physical Exam - Vital signs Vitals: Temp Pulse Resp BP Pulse Ox 98.2 F 111 H 20 142/92 H 98 03/23/18 06:08 03/23/18 06:08 03/23/18 06:08 03/23/18 06:08 03/23/18 06:08 Course - Vital Signs Vital signs: Temp Pulse Resp BP Pulse Ox 98.2 F 111 H 20 142/92 H 98 03/23/18 06:08 03/23/18 06:08 03/23/18 06:08 03/23/18 06:08 03/23/18 06:08 - Laboratory Result Diagrams: 03/23/18 06:32 03/23/18 06:32
[2018-03-23 06:52] LABS: ABSOLUTE BASOPHILS # (AUTO) 0.1 10^3/uL (0.0-0.2); ABSOLUTE LYMPHOCYTES (AUTO) 2.2 10^3/uL (0.5-4.7); ABSOLUTE MONOCYTES (AUTO) 0.6 10^3/uL (0.1-1.4); ABSOLUTE NEUT (AUTO) 3.2 10^3/uL (1.7-8.2); BASOPHILS % (AUTO) 0.9 % (0-2); EOSINOPHILS % (AUTO) 0.7 % (0-6); HEMATOCRIT 36.4 % (37.9-51.0); HEMOGLOBIN 12.2 g/dL (13.5-17.0); LYMPHOCYTES % (AUTO) 36.8 % (13-45); MEAN CORPUSCULAR HEMOGLOBIN 28.5 pg (27.0-33.4); MEAN CORPUSCULAR HGB CONC 33.5 g/dL (32.0-36.0); MEAN CORPUSCULAR VOLUME 85 fl (80-97); MONOCYTES % (AUTO) 9.4 % (3-13); PLATELET COUNT 136 10^3/uL (150-450); RED BLOOD COUNT 4.28 10^6/uL (4.35-5.55); RED CELL DISTRIBUTION WIDTH 19.7 % (11.5-14.0); SEGMENTED NEUTROPHILS % (AUTO) 52.2 % (42-78); TOTAL CELLS COUNTED % (AUTO) 100 %
[2018-03-23 07:12] LABS: ALANINE AMINOTRANSFERASE 20 U/L (21-72); ALBUMIN 4.1 g/dL (3.5-5.0); ALKALINE PHOSPHATASE 481 U/L (38-126); ANION GAP 13 (5-19); ASPARTATE AMINO TRANSFERASE 80 U/L (17-59); BILIRUBIN,DIRECT 1.4 mg/dL (0.0-0.4); BLOOD UREA NITROGEN 3 mg/dL (7-20); CARBON DIOXIDE 26 mmol/L (22-30); CHLORIDE 106 mmol/L (98-107); GLUCOSE 105 mg/dL (75-110); LIPASE 63.8 U/L (23-300); POTASSIUM 3.6 mmol/L (3.6-5.0); SODIUM 145.3 mmol/L (137-145); TOTAL PROTEIN 8.4 g/dL (6.3-8.2)
[2018-03-23] MEDS ORDERED: LORAZEPAM INJ 2 MG/1 ML VIAL IV ONE ×2 (07:43→11:04)
--- NOTE | 2018-03-23 07:51 | ER Document Report ---
ED General - General Chief Complaint: Abdominal Pain Stated Complaint: FLANK PAIN Time Seen by Provider: 03/23/18 06:38 Mode of Arrival: Ambulatory Information source: Patient Notes: Patient presents emergency department with complaints of right-sided pain. Patient reports history of IV heroin use and EtOH. Reports at least a 12 pack daily. Patient reports he has not had anything to drink or any heroin since yesterday. He reports due to the pain. Complains of nausea vomiting. Denies diarrhea. Reports history of hep C and cirrhosis. TRAVEL OUTSIDE OF THE [place] IN LAST 30 DAYS: No - HPI Onset: Other Onset/Duration: Persistent Severity: Severe Pain Level: 5 Context: Patient presents emergency department with complaints of right-sided abdominal pain. Denies trauma. Patient reports history of hepatitis and cirrhosis. Patient reports pain for the last 2 days. Reports last heroin IV was yesterday. Reports daily intake of EtOH at least a 12 pack a day. Patient reports last drinking yesterday. He reports vomiting at least twice daily for the past 2 days. Denies fever. Denies diarrhea. Associated symptoms: Nausea, Vomiting Exacerbated by: Denies Relieved by: Denies Similar symptoms previously: Yes Recently seen / treated by doctor: No - Related Data Allergies/Adverse Reactions: carisoprodol [From Soma] Allergy (Verified 06/26/17 16:38) Sulfa (Sulfonamide Antibiotics) Allergy (Verified 06/26/17 16:38) Past Medical History - General Information source: Patient - Social History Smoking Status: Current Every Day Smoker Cigarette use (# per day): Yes Frequency of alcohol use: Heavy Drug Abuse: Heroin Lives with: Family - mom Family History: CAD, CVA, Hyperlipidemia, Hypertension, Malignancy, Thyroid Disfunction Patient has suicidal ideation: No Patient has homicidal ideation: No - Past Medical History Cardiac Medical History: Reports: Hx Hypercholesterolemia, Hx Hypertension Pulmonary Medical History: Reports: Hx Bronchitis Neurological Medical History: Reports: Hx Cerebrovascular Accident - States he has had a TIA. Denies: Hx Seizures Renal/ Medical History: Denies: Hx Peritoneal Dialysis GI Medical History: Reports: Hx Cirrhosis, Hx Gastritis, Hx Hepatitis - Hepatitis-C, Hx Ulcer, Hx Endoscopy Musculoskeletal Medical History: Reports Hx Arthritis, Reports Hx Gout, Reports Hx Musculoskeletal Deformity, Reports Hx Musculoskeletal Trauma Psychiatric Medical History: Reports: Hx Anxiety, Hx Bipolar Disorder, Hx Post Traumatic Stress Disorder Comment Only: Hx Depression - anxiety Traumatic Medical History: Reports: Hx Fractures - Right hand Infectious Medical History: Reports: Hx Hepatitis - Hepatitis-C Past Surgical History: Reports: Hx Orthopedic Surgery - R hand - Immunizations Immunizations up to date: Yes Hx Diphtheria, Pertussis, Tetanus Vaccination: Yes Review of Systems - Review of Systems Notes: Review HPI for review of systems., All other systems negative Physical Exam - Vital signs Vitals: Temp Pulse Resp BP Pulse Ox 98.2 F 111 H 20 142/92 H 98 03/23/18 06:08 03/23/18 06:08 03/23/18 06:08 03/23/18 06:08 03/23/18 06:08 - Notes Notes: PHYSICAL EXAMINATION: GENERAL: looks uncomfortable HEAD: Atraumatic, normocephalic. EYES: Pupils equal round and reactive to light, extraocular movements intact, sclera anicteric, conjunctiva are normal. ENT: nares patent, oropharynx clear. Moist mucous membranes. NECK: Normal range of motion, supple without lymphadenopathy LUNGS: CTAB and equal. No wheezes rales or rhonchi. HEART: Tachy without murmurs ABDOMEN: TTP Right side, firm EXTREMITIES: Normal range of motion, no pitting edema. No cyanosis. NEUROLOGICAL: Cranial nerves grossly intact. Normal sensory/motor exams. PSYCH: Normal mood, normal affect. SKIN: Warm, Dry, normal turgor, no rashes or lesions noted Course - Re-evaluation Re-evalutation: 03/23/18 09:35 amonia 50.2 last amonia level 50.9, US with IMPRESSION: 1. Chronic hepatomegaly and known portal hypertension. 2. Trace amount of pericholecystic fluid may be related to chronic liver disease or acalculous cholecystitis. pt still in pain, has had multiple chest/abd CTA, consulted dr christine, patient reviewed, agrees with admission, contacted dr vallejo who referred to dr rosado for admission, consulted dr rosado, report given , he agrees with admission to [facility]. pt not in DT's yet. No further radiology exam requested. pt updated on plan of care. - Vital Signs Vital signs: Temp Pulse Resp BP Pulse Ox 97.6 F 111 H 16 131/91 H 96 03/23/18 06:12 03/23/18 06:08 03/23/18 11:01 03/23/18 11:01 03/23/18 10:01 - Laboratory Result Diagrams: 03/23/18 06:32 03/23/18 06:32 Laboratory results interpreted by me: 03/23/18 03/23/18 03/23/18 06:32 06:32 06:32 RBC 4.28 L Hgb 12.2 L Hct 36.4 L RDW 19.7 H Plt Count 136 L APTT Sodium 145.3 H BUN 3 L Total Bilirubin 2.0 H Direct Bilirubin 1.4 H AST 80 H ALT 20 L Alkaline Phosphatase 481 H Ammonia 50.2 H Total Protein 8.4 H Urine Protein Urine Bilirubin Urine Urobilinogen 03/23/18 03/23/18 07:48 08:12 RBC Hgb Hct RDW Plt Count APTT 40.4 H Sodium BUN Total Bilirubin Direct Bilirubin AST ALT Alkaline Phosphatase Ammonia Total Protein Urine Protein 30 H Urine Bilirubin SMALL H Urine Urobilinogen 4.0 H - Diagnostic Test Radiology reviewed: Image reviewed, Reports reviewed - EXAM DESCRIPTION: U/S ABDOMEN LIMITED W/O DOP COMPLETED DATE/TIME: 03/23/2018 9:04 am REASON FOR STUDY: RUQ pain COMPARISON: 10/16/2017 TECHNIQUE: Dynamic and static grayscale images acquired of the abdomen and recorded on PACS. Additional selected color Doppler and spectral images recorded. LIMITATIONS: None. FINDINGS: PANCREAS: No masses. Visualized pancreatic duct normal caliber. LIVER : Hepatomegaly. Fatty change. No solid mass. LIVER VASCULATURE: Normal directional flow of the main portal vein and hepatic veins. GALLBLADDER: Small amount of pericholecystic fluid. No gallstones. Gallbladder wall 3 mm. ULTRASOUND-DETECTED GUAMAN'S SIGN: Negative. INTRAHEPATIC DUCTS AND COMMON DUCT : CBD and intrahepatic ducts normal caliber. No filling defects. INFERIOR VENA CAVA: Normal flow. AORTA: No aneurysm. RIGHT KIDNEY: Normal size. Normal echogenicity. No solid or suspicious masses. No hydronephrosis. No calcifications. PERITONEAL AND RIGHT PLEURAL SPACE: No ascites or effusions. OTHER: No other significant findings. IMPRESSION: 1. Chronic hepatomegaly and known portal hypertension. 2. Trace amount of pericholecystic fluid may be related to chronic liver disease or acalculous cholecystitis. Correlation with HIDA scan may be of benefit if clinically indicated. TECHNICAL DOCUMENTATION: JOB ID: [id number] [employer]- All Rights Reserved Reading location - IP/workstation name: [email or web address] Dictated by: LOY RITCHIE MD [id number] CC: GIULIA ROLLINS PA-C > Discharge - Discharge Clinical Impression: etoh withdrawal Abdominal pain Qualifiers: Abdominal location: right upper quadrant Qualified Code(s): R10.11 - Right upper quadrant pain Nausea and vomiting Qualifiers: Vomiting type: unspecified Condition: Stable Disposition: ADMITTED INPATIENT Admitting Provider: Hospitalist - obay[facility] Unit Admitted: [facility]
[2018-03-23] MEDS ORDERED: KETOROLAC TROMETHAMINE INJ/PF 30 MG/1 ML SDV IV ONE (08:15)
[2018-03-23 08:25] LABS: APPEARANCE,URINE CLEAR; BILIRUBIN,URINE SMALL (NEGATIVE); GLUCOSE, URINE NEGATIVE (NEGATIVE); KETONES,URINE NEGATIVE (NEGATIVE); LEUKOCYTE ESTERASE,URINE NEGATIVE (NEGATIVE); NITRITE,URINE NEGATIVE (NEGATIVE); PROTEIN,URINE 30 mg/dL (NEGATIVE); URINE SPECIFIC GRAVITY 1.023
[2018-03-23 08:26] LABS: COLOR,URINE DARK YELLOW
[2018-03-23 08:28] LABS: INTERNATIONAL RATION (INR) 1.15; PROTHROMBIN TIME 15.3 SEC (11.4-15.4)
[2018-03-23 08:29] LABS: PARTIAL THROMBOPLASTIN TIME 40.4 SEC (23.5-35.8)
[2018-03-23 08:43] LABS: URINE AMPHETAMINES SCREEN NEGATIVE; URINE BARBITURATES SCREEN NEGATIVE; URINE BENZODIAZEPINES SCREEN UNCONFIRMED POSITIVE; URINE COCAINE SCREEN NEGATIVE; URINE MARIJUANA (THC) SCREEN NEGATIVE; URINE METHADONE SCREEN NEGATIVE; URINE PHENCYCLIDINE SCREEN NEGATIVE
--- NOTE | 2018-03-23 09:16 | RADIOLOGY REPORT (SQ) ---
EXAM DESCRIPTION: U/S ABDOMEN LIMITED W/O DOP COMPLETED DATE/TIME: 03/23/2018 9:04 am REASON FOR STUDY: RUQ pain COMPARISON: 10/16/2017 TECHNIQUE: Dynamic and static grayscale images acquired of the abdomen and recorded on PACS. Marcelleo jose enrique selected color Doppler and spectral images recorded. LIMITATIONS: None. FINDINGS: PANCREAS: No masses. Visualized pancreatic duct normal caliber. LIVER: Hepatomegaly. Fatty change. No solid mass. LIVER VASCULATURE: Normal directional flow of the main portal vein and hepatic veins. GALLBLADDER: Small amount of pericholecystic fluid. No gallstones. Gallbladder wall 3 mm. ULTRASOUND-DETECTED GUAMAN'S SIGN: Negative. INTRAHEPATIC DUCTS AND COMMON DUCT: CBD and intrahepatic ducts normal caliber. No filling defects. INFERIOR VENA CAVA: Normal flow. AORTA: No aneurysm. RIGHT KIDNEY: Normal size. Normal echogenicity. No solid or suspicious masses. No hydronephrosis. No calcifications. PERITONEAL AND RIGHT PLEURAL SPACE: No ascites or effusions. OTHER: No other significant findings. IMPRESSION: 1. Chronic hepatomegaly and known portal hypertension. 2. Trace amount of pericholecystic fluid may be related to chronic liver disease or acalculous cholec ystitis. Correlation with HIDA scan may be of benefit if clinically indicated. TECHNICAL DOCUMENTATION: JOB ID: [id number] [employer]- All Rights Reserved Reading location - IP/workstation name: [email or web address]
[2018-03-23] MEDS ORDERED: IPRATROPIUM/ALBUTEROL 0.5-2.5 MG/3 ML AMPUL NEB PRN (11:05)
--- NOTE | 2018-03-23 11:42 | PDOC H&P ---
History of Present Illness Admission Date/PCP: 03/23/18 09:40 Patient complains of: Abdominal pain, shaking, and alcohol abuse and IV heroin abuse History of Present Illness: RAMBO MARTINEZ is a 32 year old male This 32-year-old gentleman who is very well-known to me from a previous admission presents to the emergency room with complaints of sided abdominal pain. Patient has a history of heavy alcohol intake at least 12 packs a day. His last drink was yesterday. He was in the hospital for prolonged. Back in October and states he was in rehab a day after discharge for about a month however he admits to going back to drink shortly after discharge from alcoholic rehabilitation facility. He presents today in delirium tremens. Patient also takes heroin IV with his last heroin yesterday. Patient has a known history of hepatitis C, which is untreated. Patient was treated with large doses of Ativan and Haldol due to his withdrawal symptoms which was prolonged. He had liver failure but it appears patient actually recovered and was able to stay out of the hospital over the last 5-6 months. We made attempts to transfer him to [facility] back in October however he was rejected due to his ongoing alcohol issues. Past Medical History Cardiac Medical History: Reports: Hyperlipidema, Hypertension Pulmonary Medical History: Reports: Bronchitis Neurological Medical History: Denies: Seizures GI Medical History: Reports: Cirrhosis, Hepatitis - Hepatitis-C Musculoskeltal Medical History: Reports: Arthritis, Gout Psychiatric Medical History: Reports: Bipolar Disorder, Post Traumatic Stress Disorder Comment Only: Depression - anxiety Past Surgical History Past Surgical History: Reports: Orthopedic Surgery - R hand Social History Information Source: [facility] Records Lives with: Family - mom Smoking Status: Current Every Day Smoker Frequency of Alcohol Use: Heavy - 12 pack Hx Recreational Drug Use: Yes Drugs: Heroin, Marijuana, Other Hx Prescription Drug Abuse: Yes - Advance Directive Resuscitation Status: Full Code Family History Family History: CAD, CVA, Hyperlipidemia, Hypertension, Malignancy, Thyroid Disfunction Parental Family History Reviewed: Yes - Father from ETOH abuse Children Family History Reviewed: NA Sibling(s) Family History Reviewed.: NA Medication/Allergy Home Medications: Gabapentin [Neurontin 100 mg Capsule] 100 mg PO Q8 03/23/18 Propranolol HCl [Inderal 20 mg Tablet] 20 mg PO BID 03/23/18 Allergies/Adverse Reactions: carisoprodol [From Soma] Allergy (Verified 06/26/17 16:38) Sulfa (Sulfonamide Antibiotics) Allergy (Verified 06/26/17 16:38) Review of Systems All systems: reviewed and no additional remarkable complaints except as stated Gastrointestinal: PRESENT: abdominal pain Neurological: PRESENT: other - tremors Psychiatric: PRESENT: other - polysubstance abuse Physical Exam Vital Signs: Temp Pulse Resp BP Pulse Ox 97.6 F 111 H 16 131/91 H 96 03/23/18 06:12 03/23/18 06:08 03/23/18 11:01 03/23/18 11:01 03/23/18 10:01 General appearance: PRESENT: no acute distress, other - young chronically ill looking, shaking wuth tremors Head exam: PRESENT: atraumatic, normocephalic Eye exam: PRESENT: conjunctiva pink, EOMI, PERRLA. ABSENT: scleral icterus Ear exam: PRESENT: normal external ear exam Mouth exam: PRESENT: moist, tongue midline Neck exam: ABSENT: carotid bruit, JVD, lymphadenopathy, thyromegaly Respiratory exam: PRESENT: clear to auscultation jason. ABSENT: rales, rhonchi, wheezes Cardiovascular exam: PRESENT: +S1, +S2, tachycardia. ABSENT: diastolic murmur, rubs, systolic murmur Pulses: PRESENT: normal dorsalis pedis pul Vascular exam: PRESENT: normal capillary refill GI/Abdominal exam: PRESENT: normal bowel sounds, soft, tenderness - vague generalized. ABSENT: distended, guarding, mass, organolmegaly, rebound Rectal exam: PRESENT: deferred Extremities exam: PRESENT: full ROM. ABSENT: calf tenderness, clubbing, pedal edema Neurological exam: PRESENT: alert, awake, oriented to person, oriented to place , oriented to time, oriented to situation, CN II-XII grossly intact, other - asterexis, tremors. ABSENT: motor sensory deficit Psychiatric exam: PRESENT: appropriate affect, normal mood. ABSENT: homicidal ideation, suicidal ideation Skin exam: PRESENT: dry, intact, warm. ABSENT: cyanosis, rash Results Laboratory Results: 03/23/18 06:32 03/23/18 06:32 03/23/18 03/23/18 03/23/18 06:32 06:32 06:32 WBC 6.0 RBC 4.28 L Hgb 12.2 L Hct 36.4 L MCV 85 MCH 28.5 MCHC 33.5 RDW 19.7 H Plt Count 136 L Seg Neutrophils % 52.2 Lymphocytes % 36.8 Monocytes % 9.4 Eosinophils % 0.7 Basophils % 0.9 Absolute Neutrophils 3.2 Absolute Lymphocytes 2.2 Absolute Monocytes 0.6 Absolute Eosinophils 0.0 Absolute Basophils 0.1 Sodium 145.3 H Potassium 3.6 Chloride 106 Carbon Dioxide 26 Anion Gap 13 BUN 3 L Creatinine 0.58 Est GFR ( Amer) > 60 Est GFR (Non-Af Amer) > 60 Glucose 105 Calcium 9.0 Total Bilirubin 2.0 H AST 80 H ALT 20 L Alkaline Phosphatase 481 H Ammonia 50.2 H Total Protein 8.4 H Albumin 4.1 Lipase 63.8 Urine Color Urine Appearance Urine pH Ur Specific [place] Urine Protein Urine Glucose (UA) Urine Ketones Urine Blood Urine Nitrite Ur Leukocyte Esterase Urine WBC (Auto) Urine RBC (Auto) 03/23/18 07:48 WBC RBC Hgb Hct MCV MCH MCHC RDW Plt Count Seg Neutrophils % Lymphocytes % Monocytes % Eosinophils % Basophils % Absolute Neutrophils Absolute Lymphocytes Absolute Monocytes Absolute Eosinophils Absolute Basophils Sodium Potassium Chloride Carbon Dioxide Anion Gap BUN Creatinine Est GFR ( Amer) Est GFR (Non-Af Amer) Glucose Calcium Total Bilirubin AST ALT Alkaline Phosphatase Ammonia Total Protein Albumin Lipase Urine Color DARK YELLOW Urine Appearance CLEAR Urine pH 6.0 Ur Specific [place] 1.023 Urine Protein 30 H Urine Glucose (UA) NEGATIVE Urine Ketones NEGATIVE Urine Blood NEGATIVE Urine Nitrite NEGATIVE Ur Leukocyte Esterase NEGATIVE Urine WBC (Auto) 1 Urine RBC (Auto) 0 Impressions: Abdomen Ultrasound 03/23/18 06:49 IMPRESSION: 1. Chronic hepatomegaly and known portal hypertension. 2. Trace amount of pericholecystic fluid may be related to chronic liver disease or acalculous cholecystitis. Correlation with HIDA scan may be of benefit if clinically indicated. Assessment & Plan - Diagnosis (1) Polysubstance abuse Is this a current diagnosis for this admission?: Yes (2) Alcohol dependence with withdrawal Qualifiers: Complication of substance-induced condition: uncomplicated Qualified Code(s ): F10.230 - Alcohol dependence with withdrawal, uncomplicated (4) Cirrhosis Qualifiers: Hepatic cirrhosis type: alcoholic cirrhosis Is this a current diagnosis for this admission?: Yes Plan: Patient gives a history of cirrhosis of liver. CT scan done during his last admission really does not mention hepatic changes consistent with cirrhosis. He also had minimal ascites although clinically it appears that he had SBP we will unable to obtain any ascitic fluid via paracentesis. There appears to be no sign of infection at this time and so I will defer any antibiotics. (5) Hepatitis C Qualifiers: Viral hepatitis chronicity: chronic Is this a current diagnosis for this admission?: Yes - Time Time Spent: 50 to 70 Minutes Medications reviewed and adjusted accordingly: Yes Anticipated discharge: Home Within: Other - Inpatient Certification Based on my medical assessment, after consideration of the patient's comorbidities, presenting symptoms, or acuity I expect that the services needed warrant INPATIENT care.: Yes Medical Necessity: Need Close Monitoring Due to Risk of Patient Decompensation, Risk of Complication if Not Cared For in Hospital, Risk of Diagnosis Which Will Require Inpatient Eval/Care/Monitoring
[2018-03-23] MEDS: LORAZEPAM INJ 2 MG/1 ML VIAL IV SCH ×3 (14:09→20:23)
[2018-03-23] MEDS: NORMAL SALINE 1000 ML 1,000 ML IV PRN (14:11)
[2018-03-23] MEDS: FAMOTIDINE INJ/PF 20 MG/2 ML SDV IV SCH ×2 (14:11→22:14)
[2018-03-23] MEDS: OXYCODONE-ACETAMINOPHEN 5-325 MG TABLET PO PRN ×3 (14:44→23:11)
[2018-03-23] MEDS ORDERED: NORMAL SALINE 1000 ML 1,000 ML with MAGNESIUM SULFATE 8 MEQ, THIAMINE HCL 100 MG, MVI, ... IV ONE ×4 (18:00)
[2018-03-24] MEDS: LORAZEPAM INJ 2 MG/1 ML VIAL IV SCH ×3 (00:13→07:45)
[2018-03-24] MEDS: NORMAL SALINE 1000 ML 1,000 ML IV PRN ×3 (02:16→22:58)
[2018-03-24] MEDS: OXYCODONE-ACETAMINOPHEN 5-325 MG TABLET PO PRN ×5 (03:28→22:56)
[2018-03-24] MEDS ORDERED: NORMAL SALINE 1000 ML 1,000 ML IV ONE (04:15)
[2018-03-24 04:35] LABS: ABSOLUTE LYMPHOCYTES (AUTO) 1.2 10^3/uL (0.5-4.7); ABSOLUTE MONOCYTES (AUTO) 0.3 10^3/uL (0.1-1.4); ABSOLUTE NEUT (AUTO) 1.4 10^3/uL (1.7-8.2); EOSINOPHILS % (AUTO) 1.4 % (0-6); HEMATOCRIT 29.4 % (37.9-51.0); LYMPHOCYTES % (AUTO) 39.7 % (13-45); MEAN CORPUSCULAR HEMOGLOBIN 28.7 pg (27.0-33.4); MEAN CORPUSCULAR HGB CONC 34.1 g/dL (32.0-36.0); MEAN CORPUSCULAR VOLUME 84 fl (80-97); MONOCYTES % (AUTO) 8.9 % (3-13); RED CELL DISTRIBUTION WIDTH 19.3 % (11.5-14.0); TOTAL CELLS COUNTED % (AUTO) 100 %
[2018-03-24 04:52] LABS: ALANINE AMINOTRANSFERASE 19 U/L (21-72); ALBUMIN 3.1 g/dL (3.5-5.0); ALKALINE PHOSPHATASE 429 U/L (38-126); ANION GAP 9 (5-19); ASPARTATE AMINO TRANSFERASE 61 U/L (17-59); BILIRUBIN,DIRECT 1.6 mg/dL (0.0-0.4); BILIRUBIN,TOTAL 2.4 mg/dL (0.2-1.3); BLOOD UREA NITROGEN 9 mg/dL (7-20); CARBON DIOXIDE 23 mmol/L (22-30); CHLORIDE 109 mmol/L (98-107); GLUCOSE 88 mg/dL (75-110); POTASSIUM 3.6 mmol/L (3.6-5.0); SODIUM 140.6 mmol/L (137-145); TOTAL PROTEIN 6.8 g/dL (6.3-8.2)
[2018-03-24 04:58] LABS: WHITE BLOOD COUNT 2.9 10^3/uL (4.0-10.5)
[2018-03-24 05:03] LABS: PLATELET COUNT 97 10^3/uL (150-450)
[2018-03-24] MEDS: MAGNESIUM SULFATE/D5W 1 GM/100 ML RTUPB IV SCH ×3 (09:09→13:52)
[2018-03-24] MEDS: FAMOTIDINE INJ/PF 20 MG/2 ML SDV IV SCH ×2 (09:09→21:29)
[2018-03-24] MEDS: ENOXAPARIN SODIUM INJ 40 MG/0.4 ML DISP.SYRIN SUBCUT SCH (09:12)
--- NOTE | 2018-03-24 09:48 | PDOC PROGRESS REPORT ---
Subjective Progress Note for:: 03/24/18 Subjective:: Patient feels better, no agitation or confusion Reason For Visit: ALCOHOL WITHDRAWAL,DELIRIUM TREMENS Physical Exam Vital Signs: Temp Pulse Resp BP Pulse Ox 97.8 F 93 15 120/92 H 98 03/24/18 08:00 03/24/18 08:00 03/24/18 08:00 03/24/18 08:00 03/24/18 08:00 Intake & Output 03/23/18 03/24/18 03/25/18 06:59 06:59 06:59 Intake Total 2508 Output Total 150 Balance 2358 Weight 86.9 kg General appearance: PRESENT: no acute distress, well-developed, well-nourished Head exam: PRESENT: atraumatic, normocephalic Eye exam: PRESENT: conjunctiva pink, EOMI, PERRLA. ABSENT: scleral icterus Ear exam: PRESENT: normal external ear exam Mouth exam: PRESENT: moist, tongue midline Neck exam: ABSENT: carotid bruit, JVD, lymphadenopathy, thyromegaly Respiratory exam: PRESENT: clear to auscultation jason. ABSENT: rales, rhonchi, wheezes Cardiovascular exam: PRESENT: RRR. ABSENT: diastolic murmur, rubs, systolic murmur Pulses: PRESENT: normal dorsalis pedis pul Vascular exam: PRESENT: normal capillary refill GI/Abdominal exam: PRESENT: normal bowel sounds, soft, tenderness - mild, RUQ. ABSENT: distended, guarding, mass, organolmegaly, rebound Rectal exam: PRESENT: deferred Extremities exam: PRESENT: full ROM. ABSENT: calf tenderness, clubbing, pedal edema Neurological exam: PRESENT: alert, awake, oriented to person, oriented to place , oriented to time, oriented to situation, CN II-XII grossly intact. ABSENT: motor sensory deficit Psychiatric exam: PRESENT: appropriate affect, normal mood. ABSENT: homicidal ideation, suicidal ideation Skin exam: PRESENT: dry, intact, warm. ABSENT: cyanosis, rash Results Laboratory Results: 03/24/18 04:20 03/24/18 04:20 03/24/18 03/24/18 03/24/18 04:20 04:20 04:20 WBC 2.9 L D RBC 3.50 L Hgb 10.0 L D Hct 29.4 L MCV 84 MCH 28.7 MCHC 34.1 RDW 19.3 H Plt Count 97 L Seg Neutrophils % 49.0 Lymphocytes % 39.7 Monocytes % 8.9 Eosinophils % 1.4 Basophils % 1.0 Absolute Neutrophils 1.4 L Absolute Lymphocytes 1.2 Absolute Monocytes 0.3 Absolute Eosinophils 0.0 Absolute Basophils 0.0 Sodium 140.6 Potassium 3.6 Chloride 109 H Carbon Dioxide 23 Anion Gap 9 BUN 9 Creatinine 0.58 Est GFR ( Amer) > 60 Est GFR (Non-Af Amer) > 60 Glucose 88 Calcium 8.0 L Magnesium 1.3 L Total Bilirubin 2.4 H AST 61 H ALT 19 L Alkaline Phosphatase 429 H Ammonia 42.9 H Total Protein 6.8 Albumin 3.1 L Impressions: Abdomen Ultrasound 03/23/18 06:49 IMPRESSION: 1. Chronic hepatomegaly and known portal hypertension. 2. Trace amount of pericholecystic fluid may be related to chronic liver disease or acalculous cholecystitis. Correlation with HIDA scan may be of benefit if clinically indicated. Assessment & Plan - Diagnosis (1) Polysubstance abuse Is this a current diagnosis for this admission?: Yes Plan: Counselling and encouragement (2) Alcohol dependence with withdrawal Qualifiers: Complication of substance-induced condition: uncomplicated Qualified Code(s ): F10.230 - Alcohol dependence with withdrawal, uncomplicated Is this a current diagnosis for this admission?: Yes Plan: Continue with [facility] protocol. (3) Alcoholic liver disease Is this a current diagnosis for this admission?: Yes Plan: cirrhosis from liver disease, portal hypertension (4) Cirrhosis Qualifiers: Hepatic cirrhosis type: alcoholic cirrhosis Is this a current diagnosis for this admission?: Yes (5) Hepatitis C Qualifiers: Viral hepatitis chronicity: chronic Is this a current diagnosis for this admission?: Yes (6) Cholecystitis Is this a current diagnosis for this admission?: Yes Plan: Patient has RUQ pain and ? acalculous cholecystitis per sono. Will obtain HIDA scan and further consult if indicated. - Time Time Spent with patient: 15-24 minutes Medications reviewed and adjusted accordingly: Yes Anticipated discharge: Home Within: within 72 hours - Inpatient Certification Based on my medical assessment, after consideration of the patient's comorbidities, presenting symptoms, or acuity I expect that the services needed warrant INPATIENT care.: Yes Medical Necessity: Need For IV Fluids, Need for Pain Control, Risk of Complication if Not Cared For in Hospital
[2018-03-24] MEDS ORDERED: PROPRANOLOL HCL 20 MG TABLET PO SCH (12:30)
[2018-03-24] MEDS: LIDOCAINE 5% (700 MG) TRANSDERMAL ADH..PATCH TP SCH (13:06)
[2018-03-24] MEDS ORDERED: HYDROMORPHONE HCL INJ/PF 2 MG/ML AMPULE ONE (13:11)
[2018-03-24] MEDS ORDERED: ONDANSETRON HCL INJ/PF 4 MG/2 ML SDV IV PRN (13:12)
[2018-03-24] MEDS ORDERED: LORAZEPAM INJ 2 MG/1 ML VIAL ONE (13:12)
[2018-03-24] MEDS: LACTULOSE SYRUP 20 GM/30 ML UDCUP PO SCH ×2 (13:13→21:31)
[2018-03-24] MEDS: LORAZEPAM INJ 2 MG/1 ML VIAL IV PRN ×3 (13:21→21:28)
[2018-03-24] MEDS ORDERED: MAGNESIUM SULFATE/D5W 1 GM/100 ML RTUPB IV ONE (13:52)
[2018-03-24] MEDS: GABAPENTIN 100 MG CAPSULE PO SCH ×2 (13:56→21:29)
[2018-03-24] MEDS ORDERED: HYDROMORPHONE HCL INJ/PF 2 MG/ML AMPULE IV ONE (14:00)
--- NOTE | 2018-03-24 14:52 | RADIOLOGY REPORT (SQ) ---
EXAM DESCRIPTION: NM HIDA SCAN COMPLETED DATE/TIME: 03/24/2018 2:38 pm REASON FOR STUDY: ? ACALCULOUS CHOLECYSTITIS COMPARISON: Abdominal ultrasound 03/23/2018 and HIDA scan dated May 2017 RADIONUCLIDE AND DOSE: DOSAGE RADIONUCLIDE: 5 millicuries Tc99m Mebrofenin. DOSAGE MORPHINE: Not required. The route of agent administration: Intravenous TECHNIQUE: Serial imaging right upper quadrant up to 60 minutes following injection of radionuclide. Patient imaged AP and Right Lateral. LIMITATIONS: None. FINDINGS: LIVER: Normal visualization without areas of photopenia. INTRA-HEPATIC BILE DUCTS: Temporal visualization normal. No dilatation. COMMON BILE DUCT: Normal without dilatation or delayed visualization. GALLBLADDER: Normal visualization. OTHER: No other significant finding. IMPRESSION: NORMAL STUDY WITHOUT CYSTIC OR COMMON DUCT OBSTRUCTION. TECHNICAL DOCUMENTATION: JOB ID: [id number] [email or web address]- All Rights Reserved Reading location - IP/workstation name: [email or web address]
--- NOTE | 2018-03-24 15:25 | PDOC CONSULTATION ---
Consultation Consult Date: 03/24/18 Consult reason:: abdominal pains History of Present Illness Admission Date/PCP: 03/23/18 09:40 Patient complains of: abdominal pains History of Present Illness: RAMBO MARTINEZ is a 32 year old male with history of alcoholism and drinks alcohol everyday. Was in rehab and discharge in November only to relapse later that month. Has chronic abdominal pains but worsened yesterday associated with N/V. Went to ED last night and had a CT scan which showed hepatomegaly with portalk hypertension. No gallstone but has pericholecystic fluid which may be due tocirrhosis vs acalculus cholecystitis. Subsequent HIDA scan is normal. Past Medical History Cardiac Medical History: Reports: Hyperlipidema, Hypertension Pulmonary Medical History: Reports: Bronchitis Neurological Medical History: Denies: Seizures GI Medical History: Reports: Cirrhosis, Hepatitis - Hepatitis-C Musculoskeltal Medical History: Reports: Arthritis, Gout Psychiatric Medical History: Reports: Bipolar Disorder, Post Traumatic Stress Disorder Comment Only: Depression - anxiety Past Surgical History Past Surgical History: Reports: Orthopedic Surgery - R hand Social History Lives with: Family - mom Smoking Status: Current Every Day Smoker Frequency of Alcohol Use: Heavy - 12 pack Hx Recreational Drug Use: Yes Drugs: Heroin, Marijuana, Other Hx Prescription Drug Abuse: Yes - Advance Directive Resuscitation Status: Full Code Family History Family History: CAD, CVA, Hyperlipidemia, Hypertension, Malignancy, Thyroid Disfunction Parental Family History Reviewed: Yes Children Family History Reviewed: No Sibling(s) Family History Reviewed.: No Medication/Allergy Home Medications: Gabapentin [Neurontin 100 mg Capsule] 100 mg PO Q8 03/23/18 Propranolol HCl [Inderal 20 mg Tablet] 20 mg PO BID 03/23/18 Allergies/Adverse Reactions: carisoprodol [From Soma] Allergy (Verified 06/26/17 16:38) Sulfa (Sulfonamide Antibiotics) Allergy (Verified 06/26/17 16:38) Review of Systems Constitutional: PRESENT: as per HPI Gastrointestinal: PRESENT: abdominal pain, nausea, vomiting Physical Exam Vital Signs: Temp Pulse Resp BP Pulse Ox 97.8 F 78 14 120/92 H 98 03/24/18 08:00 03/24/18 14:00 03/24/18 11:00 03/24/18 08:00 03/24/18 08:00 Intake & Output 03/23/18 03/24/18 03/25/18 06:59 06:59 06:59 Intake Total 2508 1400 Output Total 150 650 Balance 2358 750 Weight 86.9 kg General appearance: PRESENT: mild distress Head exam: PRESENT: atraumatic Eye exam: PRESENT: conjunctiva pink Mouth exam: PRESENT: moist Neck exam: PRESENT: full ROM Respiratory exam: PRESENT: clear to auscultation jason Cardiovascular exam: PRESENT: RRR Pulses: PRESENT: normal radial pulses Vascular exam: PRESENT: normal capillary refill GI/Abdominal exam: PRESENT: soft, tenderness - epigastrium and RUQ Palpable tender liver edge RUQ tender Neurological exam: PRESENT: alert, awake, oriented to person, oriented to place , oriented to time, oriented to situation Psychiatric exam: PRESENT: appropriate affect Skin exam: PRESENT: normal color, warm Results Laboratory Results: 03/24/18 04:20 03/24/18 04:20 03/24/18 03/24/18 03/24/18 04:20 04:20 04:20 WBC 2.9 L D RBC 3.50 L Hgb 10.0 L D Hct 29.4 L MCV 84 MCH 28.7 MCHC 34.1 RDW 19.3 H Plt Count 97 L Seg Neutrophils % 49.0 Lymphocytes % 39.7 Monocytes % 8.9 Eosinophils % 1.4 Basophils % 1.0 Absolute Neutrophils 1.4 L Absolute Lymphocytes 1.2 Absolute Monocytes 0.3 Absolute Eosinophils 0.0 Absolute Basophils 0.0 Sodium 140.6 Potassium 3.6 Chloride 109 H Carbon Dioxide 23 Anion Gap 9 BUN 9 Creatinine 0.58 Est GFR ( Amer) > 60 Est GFR (Non-Af Amer) > 60 Glucose 88 Calcium 8.0 L Magnesium 1.3 L Total Bilirubin 2.4 H AST 61 H ALT 19 L Alkaline Phosphatase 429 H Ammonia 42.9 H Total Protein 6.8 Albumin 3.1 L Impressions: Abdomen Ultrasound 03/23/18 06:49 IMPRESSION: 1. Chronic hepatomegaly and known portal hypertension. 2. Trace amount of pericholecystic fluid may be related to chronic liver disease or acalculous cholecystitis. Correlation with HIDA scan may be of benefit if clinically indicated. Hepatobiliary Scan Nuclear Medicine 03/24/18 00:00 IMPRESSION: NORMAL STUDY WITHOUT CYSTIC OR COMMON DUCT OBSTRUCTION. Assessment & Plan - Diagnosis (1) Acute hepatic encephalopathy Is this a current diagnosis for this admission?: Yes (2) Alcohol abuse Is this a current diagnosis for this admission?: Yes (3) Alcoholic liver disease Is this a current diagnosis for this admission?: Yes (4) Chronic pancreatitis Qualifiers: Pancreatitis type: alcohol induced Qualified Code(s): K86.0 - Alcohol- induced chronic pancreatitis - Time Time Spent: 30 to 50 Minutes - Inpatient Certification Medical Necessity: Need For IV Fluids, Need for Pain Control, Risk of Complication if Not Cared For in Hospital - Plan Summary Plan Summary: No acute cholecystitis with normal Hida scan . Symptoms appear to be due to alcoholic cirrhosis. Will follow if still needed.
[2018-03-24] MEDS ORDERED: KETOROLAC TROMETHAMINE INJ/PF 30 MG/1 ML SDV IV ONE (15:46)
[2018-03-24] MEDS ORDERED: LORAZEPAM INJ 2 MG/1 ML VIAL IV SCH (16:00)
[2018-03-24] MEDS: PROPRANOLOL HCL 20 MG TABLET PO SCH (21:29)
[2018-03-24] MEDS: PHARMACY COMMUNICATION ORDER MC SCH (22:33)
[2018-03-25] MEDS: LORAZEPAM INJ 2 MG/1 ML VIAL IV PRN ×6 (01:29→22:06)
[2018-03-25] MEDS: OXYCODONE-ACETAMINOPHEN 5-325 MG TABLET PO PRN ×2 (03:04→06:45)
[2018-03-25 05:17] LABS: ABSOLUTE EOSINOPHILS # (AUTO) 0.1 10^3/uL (0.0-0.6); ABSOLUTE MONOCYTES (AUTO) 0.2 10^3/uL (0.1-1.4); ABSOLUTE NEUT (AUTO) 1.5 10^3/uL (1.7-8.2); BASOPHILS % (AUTO) 1.3 % (0-2); EOSINOPHILS % (AUTO) 1.9 % (0-6); HEMATOCRIT 29.7 % (37.9-51.0); HEMOGLOBIN 10.1 g/dL (13.5-17.0); LYMPHOCYTES % (AUTO) 37.9 % (13-45); MEAN CORPUSCULAR HEMOGLOBIN 28.9 pg (27.0-33.4); MEAN CORPUSCULAR HGB CONC 34.1 g/dL (32.0-36.0); MEAN CORPUSCULAR VOLUME 85 fl (80-97); SEGMENTED NEUTROPHILS % (AUTO) 52.9 % (42-78); TOTAL CELLS COUNTED % (AUTO) 100 %; WHITE BLOOD COUNT 2.8 10^3/uL (4.0-10.5)
[2018-03-25] MEDS: GABAPENTIN 100 MG CAPSULE PO SCH ×3 (05:27→22:05)
[2018-03-25 05:34] LABS: ALANINE AMINOTRANSFERASE 23 U/L (21-72); ALBUMIN 3.2 g/dL (3.5-5.0); ALKALINE PHOSPHATASE 435 U/L (38-126); ANION GAP 10 (5-19); ASPARTATE AMINO TRANSFERASE 64 U/L (17-59); BILIRUBIN,DIRECT 1.6 mg/dL (0.0-0.4); BILIRUBIN,TOTAL 2.5 mg/dL (0.2-1.3); BLOOD UREA NITROGEN 5 mg/dL (7-20); CALCIUM 8.8 mg/dL (8.4-10.2); CARBON DIOXIDE 20 mmol/L (22-30); CHLORIDE 112 mmol/L (98-107); GLUCOSE 84 mg/dL (75-110); POTASSIUM 3.7 mmol/L (3.6-5.0); SODIUM 141.6 mmol/L (137-145); TOTAL PROTEIN 6.9 g/dL (6.3-8.2)
[2018-03-25 05:37] LABS: PLATELET COUNT 97 10^3/uL (150-450)
[2018-03-25] MEDS: NORMAL SALINE 1000 ML 1,000 ML IV PRN ×3 (06:46→22:14)
[2018-03-25] MEDS: PROPRANOLOL HCL 20 MG TABLET PO SCH ×2 (09:14→22:05)
[2018-03-25] MEDS: ENOXAPARIN SODIUM INJ 40 MG/0.4 ML DISP.SYRIN SUBCUT SCH (09:14)
[2018-03-25] MEDS: LACTULOSE SYRUP 20 GM/30 ML UDCUP PO SCH ×2 (09:14→22:05)
[2018-03-25] MEDS: FAMOTIDINE INJ/PF 20 MG/2 ML SDV IV SCH ×2 (09:15→22:06)
[2018-03-25] MEDS: HYDROMORPHONE HCL INJ/PF 2 MG/ML AMPULE IV PRN ×3 (09:15→19:55)
[2018-03-25] MEDS: LIDOCAINE 5% (700 MG) TRANSDERMAL ADH..PATCH TP SCH (10:49)
[2018-03-25] MEDS: NICOTINE 21 MG/24 HR PATCH.TD24 TD SCH (14:10)
[2018-03-25] MEDS ORDERED: LORAZEPAM INJ 2 MG/1 ML VIAL IV SCH (15:00)
[2018-03-25] MEDS ORDERED: HYDROMORPHONE HCL INJ/PF 2 MG/ML AMPULE IV PRN (15:29)
--- NOTE | 2018-03-25 15:39 | PDOC PROGRESS REPORT ---
Subjective Progress Note for:: 03/25/18 Subjective:: Pt was walking hallway, in no acute distress and shortly thereafter was in bed complaining of severe chest discomfort related to recent fall at home. He otherwise is not having difficulty breathing. Is feeling a little bit anxious. Fever or chills. No nausea or vomitting. Patient does not feel confused. No significant abdominal pain today. Reason For Visit: ALCOHOL WITHDRAWAL,DELIRIUM TREMENS Physical Exam Vital Signs: Temp Pulse Resp BP Pulse Ox 97.6 F 72 16 129/90 H 100 03/25/18 12:12 03/25/18 12:12 03/25/18 12:12 03/25/18 12:12 03/25/18 12:12 Intake & Output 03/24/18 03/25/18 03/26/18 06:59 06:59 06:59 Intake Total 2508 3742 1237 Output Total 150 650 Balance 2358 3092 1237 Weight 86.9 kg 85.3 kg General appearance: PRESENT: cooperative, disheveled, mild distress Eye exam: ABSENT: conjunctival injection, scleral icterus Mouth exam: PRESENT: moist, tongue midline Respiratory exam: PRESENT: clear to auscultation jason, unlabored. ABSENT: rales , rhonchi, wheezes Cardiovascular exam: PRESENT: RRR. ABSENT: systolic murmur Pulses: PRESENT: normal radial pulses GI/Abdominal exam: PRESENT: distended, normal bowel sounds, soft. ABSENT: rebound, rigid, tenderness Rectal exam: PRESENT: deferred Gentrourinary exam: ABSENT: indwelling catheter Extremities exam: PRESENT: pedal edema Musculoskeletal exam: ABSENT: deformity Neurological exam: PRESENT: alert, awake, oriented to person, oriented to place , oriented to situation, CN II-XII grossly intact Psychiatric exam: PRESENT: anxious, flat affect Skin exam: PRESENT: dry, intact, warm. ABSENT: jaundice Results Laboratory Results: 03/25/18 04:59 03/25/18 04:59 03/25/18 03/25/18 03/25/18 04:59 04:59 04:59 WBC 2.8 L RBC 3.50 L Hgb 10.1 L Hct 29.7 L MCV 85 MCH 28.9 MCHC 34.1 RDW 20.0 H Plt Count 97 L Seg Neutrophils % 52.9 Lymphocytes % 37.9 Monocytes % 6.0 Eosinophils % 1.9 Basophils % 1.3 Absolute Neutrophils 1.5 L Absolute Lymphocytes 1.0 Absolute Monocytes 0.2 Absolute Eosinophils 0.1 Absolute Basophils 0.0 Sodium 141.6 Potassium 3.7 Chloride 112 H Carbon Dioxide 20 L Anion Gap 10 BUN 5 L Creatinine 0.54 Est GFR ( Amer) > 60 Est GFR (Non-Af Amer) > 60 Glucose 84 Calcium 8.8 Magnesium 1.5 L Total Bilirubin 2.5 H AST 64 H ALT 23 Alkaline Phosphatase 435 H Ammonia 46.1 H Total Protein 6.9 Albumin 3.2 L Impressions: Abdomen Ultrasound 03/23/18 06:49 IMPRESSION: 1. Chronic hepatomegaly and known portal hypertension. 2. Trace amount of pericholecystic fluid may be related to chronic liver disease or acalculous cholecystitis. Correlation with HIDA scan may be of benefit if clinically indicated. Hepatobiliary Scan Nuclear Medicine 03/24/18 00:00 IMPRESSION: NORMAL STUDY WITHOUT CYSTIC OR COMMON DUCT OBSTRUCTION. Assessment & Plan - Diagnosis (1) Alcohol withdrawal delirium, acute, hyperactive Is this a current diagnosis for this admission?: Yes Plan: Patient is feeling anxious. Vitals are well-appearing now. I did increase his Ativan from 4 mg IV every 4 hours to IV every 3 hours secondary to continued agitation and history of severe alcohol withdrawal. He is hemodynamically stable and calm this afternoon. We will continue to monitor closely. (2) Alcoholic liver disease Is this a current diagnosis for this admission?: Yes Plan: She was admitted with severe alcoholic hepatitis and liver failure several months ago. He survives that hospitalization and was discharged to rehab. Shortly after discharge from rehab he started drinking again. Of note while he was in the hospital last time his father of alcohol related liver disease complications. His LFTs have improved somewhat. Also for his alcoholic liver disease he is on his propranolol and lactulose. He is alert and oriented today. (3) Chest wall discomfort Is this a current diagnosis for this admission?: Yes Plan: Patient reports that he has tenderness to palpation over the right lateral chest. He states that he was pressure washing something at his house recently and he fell. I do not see any imaging from this hospitalization so I have ordered a portable chest x-ray to evaluate for rib fractures. In the meantime the patient is on Dilaudid 0.4 mg IV every 6 hours as needed pain. He is also on telemetry, as today he is describing that some of his chest discomfort is "inside of his chest". Troponin is ordered. (4) Coagulopathy Is this a current diagnosis for this admission?: Yes Plan: Secondary to alcohol use disorder. Has leukopenia and also thrombocytopenia, pharmacologic DVT prophylaxis on hold and he is on SCDs. (5) Hepatitis C Qualifiers: Viral hepatitis chronicity: chronic Is this a current diagnosis for this admission?: Yes Plan: Patient is actively drinking alcohol. He is not seeking treatment for his hepatitis C currently. (6) Alcohol dependence Qualifiers: Substance use status: with intoxication Is this a current diagnosis for this admission?: Yes Plan: This unfortunate man has severe alcohol dependence. He has been in and out of rehab. His father has recently of complications related to alcohol misuse. We will continue to drug counselor abstinence and support as we are able. - Time Time Spent with patient: 25-34 minutes Medications reviewed and adjusted accordingly: Yes - Inpatient Certification Based on my medical assessment, after consideration of the patient's comorbidities, presenting symptoms, or acuity I expect that the services needed warrant INPATIENT care.: Yes I certify that my determination is in accordance with my understanding of Medicare's requirements for reasonable and necessary INPATIENT services [42 CFR 412.3e].: Yes Medical Necessity: Significant Comorbidiites Make Outpatient Treatment Too Risky , Need Close Monitoring Due to Risk of Patient Decompensation, Risk of Complication if Not Cared For in Hospital
--- NOTE | 2018-03-25 17:50 | RADIOLOGY REPORT (SQ) ---
EXAM DESCRIPTION: CHEST SINGLE VIEW COMPLETED DATE/TIME: 03/25/2018 4:15 pm REASON FOR STUDY: see below COMPARISON: 11/10/2017 EXAM PARAMETERS: NUMBER OF VIEWS: One view. TECHNIQUE: Single frontal radiographic view of the chest acquired. RADIATION DOSE: NA LIMITATIONS: None. FINDINGS: LUNGS AND PLEURA: No opacities, masses or pneumothorax. No pleural effusion. MEDIASTINUM AND HILAR STRUCTURES: No masses. Contour normal. HEART AND VASCULAR STRUCTURES: Heart normal in size. Normal vasculature. BONES: No acute findings. HARDWARE: None in the chest. OTHER: No other significant finding. IMPRESSION: NO ACUTE RADIOGRAPHIC FINDING IN THE CHEST. TECHNICAL DOCUMENTATION: JOB ID: [id number] 2010 [email or web address]- All Rights Reserved Reading location - IP/workstation name: [email or web address]
[2018-03-25] MEDS: PHARMACY COMMUNICATION ORDER MC SCH (22:10)
[2018-03-26] MEDS: LORAZEPAM INJ 2 MG/1 ML VIAL IV PRN ×6 (01:20→18:11)
[2018-03-26] MEDS: HYDROMORPHONE HCL INJ/PF 2 MG/ML AMPULE IV PRN ×4 (02:04→21:47)
[2018-03-26] MEDS: GABAPENTIN 100 MG CAPSULE PO SCH ×3 (05:20→21:46)
[2018-03-26 05:30] LABS: HEMATOCRIT 32.4 % (37.9-51.0); HEMOGLOBIN 10.9 g/dL (13.5-17.0); MEAN CORPUSCULAR HEMOGLOBIN 28.7 pg (27.0-33.4); MEAN CORPUSCULAR HGB CONC 33.7 g/dL (32.0-36.0); MEAN CORPUSCULAR VOLUME 85 fl (80-97); PLATELET COUNT 108 10^3/uL (150-450); RED CELL DISTRIBUTION WIDTH 19.6 % (11.5-14.0); WHITE BLOOD COUNT 3.4 10^3/uL (4.0-10.5)
[2018-03-26 05:47] LABS: ALANINE AMINOTRANSFERASE 25 U/L (21-72); ALBUMIN 3.9 g/dL (3.5-5.0); ALKALINE PHOSPHATASE 442 U/L (38-126); ANION GAP 14 (5-19); ASPARTATE AMINO TRANSFERASE 80 U/L (17-59); BILIRUBIN,DIRECT 2.1 mg/dL (0.0-0.4); BLOOD UREA NITROGEN 2 mg/dL (7-20); CALCIUM 9.5 mg/dL (8.4-10.2); CARBON DIOXIDE 19 mmol/L (22-30); CHLORIDE 110 mmol/L (98-107); GLUCOSE 88 mg/dL (75-110); SODIUM 142.7 mmol/L (137-145); TOTAL PROTEIN 8.1 g/dL (6.3-8.2)
[2018-03-26] MEDS: NORMAL SALINE 1000 ML 1,000 ML IV PRN ×3 (07:36→21:58)
[2018-03-26] MEDS: PROPRANOLOL HCL 20 MG TABLET PO SCH ×2 (09:13→21:45)
[2018-03-26] MEDS: FAMOTIDINE INJ/PF 20 MG/2 ML SDV IV SCH ×2 (09:13→21:46)
[2018-03-26] MEDS: NICOTINE 21 MG/24 HR PATCH.TD24 TD SCH (09:13)
[2018-03-26] MEDS: LIDOCAINE 5% (700 MG) TRANSDERMAL ADH..PATCH TP SCH (09:14)
[2018-03-26] MEDS: LACTULOSE SYRUP 20 GM/30 ML UDCUP PO SCH ×2 (09:14→21:45)
--- NOTE | 2018-03-26 13:32 | PDOC PROGRESS REPORT ---
Subjective Progress Note for:: 03/26/18 Subjective:: Patient tells me that he is feeling significantly better today, able to walk around the [place] without too much difficulty. Tells me he thinks he wants to go home. When I talked about discontinuing his IV medications for his abdominal pain and alcohol withdrawal he told me that he was really not feeling better and that he was having severe abdominal pain. It is a little bit difficult to tell exactly what is going on with this patient symptomatically. No nausea or vomiting. No bowel movement in the last couple of days. He does feel less confused. No chest pain today, he does continue to have right upper quadrant pain per his report. No fEvers or chills. Reason For Visit: ALCOHOL WITHDRAWAL,DELIRIUM TREMENS Physical Exam Vital Signs: Temp Pulse Resp BP Pulse Ox 98.9 F 71 16 131/83 H 100 03/26/18 10:54 03/26/18 10:54 03/26/18 10:54 03/26/18 10:54 03/26/18 10:54 Intake & Output 03/25/18 03/26/18 03/27/18 06:59 06:59 06:59 Intake Total 3742 3650 100 Output Total 650 Balance 3092 3650 100 Weight 85.3 kg 84.6 kg General appearance: PRESENT: no acute distress, cooperative Head exam: PRESENT: atraumatic, normocephalic Eye exam: ABSENT: conjunctival injection, scleral icterus Mouth exam: PRESENT: moist, tongue midline Respiratory exam: PRESENT: clear to auscultation jason, unlabored. ABSENT: rales , rhonchi, wheezes Cardiovascular exam: PRESENT: RRR. ABSENT: systolic murmur GI/Abdominal exam: PRESENT: ascites, distended, hyperactive bowel sounds, soft. ABSENT: mass, rebound, rigid, tenderness Rectal exam: PRESENT: deferred Extremities exam: PRESENT: pedal edema Neurological exam: PRESENT: alert, altered, oriented to person, oriented to place, oriented to situation, CN II-XII grossly intact Psychiatric exam: PRESENT: flat affect. ABSENT: anxious Skin exam: PRESENT: dry, intact, warm Results Laboratory Results: 03/26/18 04:54 03/26/18 04:54 03/26/18 03/26/18 04:54 04:54 WBC 3.4 L RBC 3.80 L Hgb 10.9 L Hct 32.4 L MCV 85 MCH 28.7 MCHC 33.7 RDW 19.6 H Plt Count 108 L Sodium 142.7 Potassium 4.0 Chloride 110 H Carbon Dioxide 19 L Anion Gap 14 BUN 2 L Creatinine 0.53 Est GFR ( Amer) > 60 Est GFR (Non-Af Amer) > 60 Glucose 88 Calcium 9.5 Total Bilirubin 3.0 H AST 80 H ALT 25 Alkaline Phosphatase 442 H Total Protein 8.1 Albumin 3.9 03/25/18 15:55 Troponin I < 0.012 Impressions: Abdomen Ultrasound 03/23/18 06:49 IMPRESSION: 1. Chronic hepatomegaly and known portal hypertension. 2. Trace amount of pericholecystic fluid may be related to chronic liver disease or acalculous cholecystitis. Correlation with HIDA scan may be of benefit if clinically indicated. Hepatobiliary Scan Nuclear Medicine 03/24/18 00:00 IMPRESSION: NORMAL STUDY WITHOUT CYSTIC OR COMMON DUCT OBSTRUCTION. Chest X-Ray 03/25/18 00:00 IMPRESSION: NO ACUTE RADIOGRAPHIC FINDING IN THE CHEST. Assessment & Plan - Diagnosis (1) Alcohol withdrawal delirium, acute, hyperactive Is this a current diagnosis for this admission?: Yes Plan: Patient is currently doing well from a withdrawal perspective on Ativan 4 mg IV every 3 hours. We will continue this until we can taper safely. Mental status aiken he is improved. He has history of severe alcohol withdrawal syndrome. Do Not think it is appropriate to send him home today. (2) Right upper quadrant pain Is this a current diagnosis for this admission?: Yes Plan: The patient was describing right-sided chest pain from yesterday and today he is describing more right upper quadrant and epigastric discomfort. His HIDA scan was negative and he has been seen by the surgeon. I have ordered a duplex of the abdominal vessels to evaluate for portal vein thrombus. His LFTs are increasing slowly. Monitor closely for evidence of complication related to alcoholic liver disease. (3) Alcoholic liver disease Is this a current diagnosis for this admission?: Yes Plan: We will continue his propranolol. Also I have increased his lactulose from 10- 20 twice daily as he has not had a bowel movement since admission per his report. His encephalopathy is improved but his mental status is not back to normal. (4) Chest wall discomfort Is this a current diagnosis for this admission?: Yes Plan: This seems to be resolved. His chest x-ray was negative for acute changes including fractures. Troponin x1 was negative. (5) Coagulopathy Is this a current diagnosis for this admission?: Yes Plan: Secondary to liver disease. Monitor. (6) Hepatitis C Qualifiers: Viral hepatitis chronicity: chronic Is this a current diagnosis for this admission?: Yes (7) Alcohol dependence Qualifiers: Substance use status: with intoxication Is this a current diagnosis for this admission?: Yes Plan: Patient and I talked today about cessation. He wants to quit any alcohol. He came out of rehab several months ago after a prolonged hospitalization here. We will continue to offer rehab support. - Time Time Spent with patient: 15-24 minutes - Inpatient Certification Based on my medical assessment, after consideration of the patient's comorbidities, presenting symptoms, or acuity I expect that the services needed warrant INPATIENT care.: Yes I certify that my determination is in accordance with my understanding of Medicare's requirements for reasonable and necessary INPATIENT services [42 CFR 412.3e].: Yes Medical Necessity: Significant Comorbidiites Make Outpatient Treatment Too Risky , Need For Continuous Telemetry Monitoring, Need for Neurological Checks
--- NOTE | 2018-03-26 13:55 | RADIOLOGY REPORT (SQ) ---
EXAM DESCRIPTION: U/S ABDOMEN LTD W/DOPPLER COMPLETED DATE/TIME: 03/26/2018 1:20 pm REASON FOR STUDY: eval for portal vein thrombosis COMPARISON: 03/23/2018 TECHNIQUE: Dynamic and static grayscale images acquired of the abdomen and recorded on PACS. Marcelleo jose enrique selected color Doppler and spectral images recorded. LIMITATIONS: None. FINDINGS: PANCREAS: No masses. Visualized pancreatic duct normal caliber. LIVER: No masses. Similar hepatomegaly. Echotexture normal. LIVER VASCULATURE: Normal directional flow of the main portal vein and hepatic veins. GALLBLADDER: No stones. Decompressed. No pericholecystic fluid. ULTRASOUND-DETECTED GUAMAN'S SIGN: Negative. INTRAHEPATIC DUCTS AND COMMON DUCT: CBD and intrahepatic ducts normal caliber. No filling defects. INFERIOR VENA CAVA: Normal flow. AORTA: No aneurysm identified. RIGHT KIDNEY: Normal size. Normal echogenicity. No solid or suspicious masses. No hydronephros is. No calcifications. PERITONEAL AND RIGHT PLEURAL SPACE: No ascites or effusions. OTHER: No other significant findings. IMPRESSION: Normal directional flow of the main portal vein and hepatic veins. TECHNICAL DOCUMENTATION: JOB ID: [id number] 2010 [email or web address]- All Rights Reserved Reading location - IP/workstation name: [email or web address]
[2018-03-26] MEDS ORDERED: LORAZEPAM INJ 2 MG/1 ML VIAL IV SCH (18:00)
[2018-03-26] MEDS: PHARMACY COMMUNICATION ORDER MC SCH (21:46)
[2018-03-27] MEDS: LORAZEPAM INJ 2 MG/1 ML VIAL IV PRN ×5 (00:37→21:02)
[2018-03-27] MEDS: HYDROMORPHONE HCL INJ/PF 2 MG/ML AMPULE IV PRN ×3 (04:12→18:35)
[2018-03-27] MEDS: GABAPENTIN 100 MG CAPSULE PO SCH ×3 (05:40→21:01)
[2018-03-27] MEDS: NORMAL SALINE 1000 ML 1,000 ML IV PRN (05:41)
[2018-03-27] MEDS: NICOTINE 21 MG/24 HR PATCH.TD24 TD SCH (10:25)
[2018-03-27] MEDS: LACTULOSE SYRUP 20 GM/30 ML UDCUP PO SCH ×2 (10:26→21:02)
[2018-03-27] MEDS: FAMOTIDINE INJ/PF 20 MG/2 ML SDV IV SCH ×2 (10:26→21:02)
[2018-03-27] MEDS: PROPRANOLOL HCL 20 MG TABLET PO SCH ×2 (10:26→21:01)
[2018-03-27] MEDS: LIDOCAINE 5% (700 MG) TRANSDERMAL ADH..PATCH TP SCH (10:45)
--- NOTE | 2018-03-27 15:07 | PDOC PROGRESS REPORT ---
Subjective Progress Note for:: 03/27/18 Subjective:: No adverse events overnight. No new complaints. He was sitting up in bed with his legs crossed watching a fishing show on television. He looked extremely comfortable. He said that he had some pain in his side from his cirrhosis but he does not go see a doctor. As previously noted in his H&P, he did not have any evidence on his last imaging indicate that he definitely has cirrhosis, but I will review his chart again just to make sure. He seemed a bit sedated and was having trouble following my line of questioning. He wanted to know if we could just give him a prescription of the tapering medication for his alcohol withdrawal he could just take it at home. I told him that given his polysubstance abuse history that this was probably not a good idea for him given the concern that he may take it other than as prescribed. Reason For Visit: ALCOHOL WITHDRAWAL,DELIRIUM TREMENS Physical Exam Vital Signs: Temp Pulse Resp BP Pulse Ox 98.4 F 79 18 139/92 H 100 03/27/18 12:28 03/27/18 12:28 03/27/18 12:28 03/27/18 12:28 03/27/18 12:28 Intake & Output 03/26/18 03/27/18 03/28/18 06:59 06:59 06:59 Intake Total 3650 3341 1271 Balance 3650 3341 1271 Weight 84.6 kg 81.5 kg General appearance: PRESENT: no acute distress, cooperative, disheveled Respiratory exam: PRESENT: clear to auscultation jason, unlabored. ABSENT: accessory muscle use, crackles, rhonchi, tachypnea, wheezes Cardiovascular exam: PRESENT: RRR, +S1, +S2. ABSENT: diastolic murmur, systolic murmur GI/Abdominal exam: PRESENT: normal bowel sounds, soft. ABSENT: ascites, distended, guarding, rebound, tenderness Extremities exam: ABSENT: clubbing, pedal edema Musculoskeletal exam: PRESENT: normal inspection. ABSENT: deformity Neurological exam: PRESENT: altered - Speech was a bit slurred and his responses were appropriate but delayed Results Laboratory Results: 03/26/18 04:54 03/26/18 04:54 03/25/18 15:55 Troponin I < 0.012 Impressions: Hepatobiliary Scan Nuclear Medicine 03/24/18 00:00 IMPRESSION: NORMAL STUDY WITHOUT CYSTIC OR COMMON DUCT OBSTRUCTION. Chest X-Ray 03/25/18 00:00 IMPRESSION: NO ACUTE RADIOGRAPHIC FINDING IN THE CHEST. Abdomen Ultrasound 03/26/18 00:00 IMPRESSION: Normal directional flow of the main portal vein and hepatic veins. Assessment & Plan - Diagnosis (1) Alcohol dependence with withdrawal Qualifiers: Complication of substance-induced condition: uncomplicated Qualified Code(s ): F10.230 - Alcohol dependence with withdrawal, uncomplicated Is this a current diagnosis for this admission?: Yes Plan: I think this is resolved. I am going to wean him off of Ativan. (2) Polysubstance abuse Is this a current diagnosis for this admission?: Yes Plan: He has been on as needed Dilaudid, ostensibly to prevent heroin withdrawal. He looked over sedated so I backed off on both Ativan and the Dilaudid. Anticipate discharge in the next 1-2 days. - Time Time Spent with patient: 25-34 minutes
[2018-03-27] MEDS: PHARMACY COMMUNICATION ORDER MC SCH (21:03)
[2018-03-27] MEDS ORDERED: LORAZEPAM INJ 2 MG/1 ML VIAL IV SCH (22:00)
[2018-03-28] MEDS: HYDROMORPHONE HCL INJ/PF 2 MG/ML AMPULE IV PRN ×2 (02:50→10:47)
[2018-03-28] MEDS: LORAZEPAM INJ 2 MG/1 ML VIAL IV PRN ×2 (04:45→10:47)
[2018-03-28] MEDS: GABAPENTIN 100 MG CAPSULE PO SCH (05:14)
[2018-03-28] MEDS: LACTULOSE SYRUP 20 GM/30 ML UDCUP PO SCH (10:45)
[2018-03-28] MEDS: PROPRANOLOL HCL 20 MG TABLET PO SCH (10:45)
[2018-03-28] MEDS: LIDOCAINE 5% (700 MG) TRANSDERMAL ADH..PATCH TP SCH (10:46)
[2018-03-28] MEDS: FAMOTIDINE INJ/PF 20 MG/2 ML SDV IV SCH (10:46)
[2018-03-28] MEDS: NICOTINE 21 MG/24 HR PATCH.TD24 TD SCH (10:46)
[2018-03-28 12:58] VITALS: BP 125/83
--- NOTE | 2018-03-28 16:13 | PDOC DISCHARGE SUMMARY ---
General - Admit/Disc Date/PCP Admission Date/Primary Care Provider: 03/23/18 09:40 Discharge Date: 03/28/18 - Discharge Diagnosis (1) Alcohol dependence with withdrawal Is this a current diagnosis for this admission?: Yes Summary: Resolved. He was taken off benzodiazepines and immediately asked to leave the hospital. (2) Polysubstance abuse Is this a current diagnosis for this admission?: Yes Summary: He was encouraged to quit using all the various substances to which he currently abuses. - Additional Information Resuscitation Status: Full Code Discharge Diet: Regular Discharge Activity: Activity As Tolerated Home Medications: Gabapentin [Neurontin 100 mg Capsule] 100 mg PO Q8 03/23/18 Propranolol HCl [Inderal 20 mg Tablet] 20 mg PO BID 03/23/18 History of Present Illness History of Present Illness: RAMBO MARTINEZ is a 32 year old male "who is very well-known to me from a previous admission presents to the emergency room with complaints of sided abdominal pain. Patient has a history of heavy alcohol intake at least 12 packs a day. His last drink was yesterday. He was in the hospital for prolonged. Back in October and states he was in rehab a day after discharge for about a month however he admits to going back to drink shortly after discharge from alcoholic rehabilitation facility. He presents today in delirium tremens. Patient also takes heroin IV with his last heroin yesterday. Patient has a known history of hepatitis C, which is untreated. Patient was treated with large doses of Ativan and Haldol due to his withdrawal symptoms which was prolonged. He had liver failure but it appears patient actually recovered and was able to stay out of the hospital over the last 5-6 months. We made attempts to transfer him to [facility] back in October however he was rejected due to his ongoing alcohol issues." Hospital Course Hospital Course: He was placed on high-dose benzodiazepines and was put on IV Dilaudid to prevent him going to opiate withdrawal and he actually looked oversedated to me the first day that I saw him. I was able to de-escalate his medications and he continued to show no signs of any withdrawal. He initially said he wanted to receive treatment but he reneged on that today and said he just wanted to go home. He was strongly encouraged to initiate and maintain a Program of complete abstinence. He was discharged in good condition. Physical Exam Vital Signs: Temp Pulse Resp BP Pulse Ox 98.1 F 79 16 125/83 100 03/28/18 12:56 03/28/18 12:56 03/28/18 12:56 03/28/18 12:56 03/28/18 12:56 Intake & Output 03/27/18 03/28/18 03/29/18 06:59 06:59 06:59 Intake Total 3341 2610 1373 Balance 3341 2610 1373 Weight 81.5 kg 79.1 kg General appearance: PRESENT: no acute distress, cooperative, disheveled Respiratory exam: PRESENT: clear to auscultation jason, unlabored. ABSENT: accessory muscle use, crackles, rhonchi, tachypnea, wheezes Cardiovascular exam: PRESENT: RRR, +S1, +S2. ABSENT: diastolic murmur, systolic murmur GI/Abdominal exam: PRESENT: normal bowel sounds, soft. ABSENT: ascites, distended, guarding, rebound, tenderness Extremities exam: ABSENT: clubbing, pedal edema Musculoskeletal exam: PRESENT: normal inspection. ABSENT: deformity Results Laboratory Results: 03/26/18 04:54 03/26/18 04:54 03/25/18 15:55 Troponin I < 0.012 Impressions: Hepatobiliary Scan Nuclear Medicine 03/24/18 00:00 IMPRESSION: NORMAL STUDY WITHOUT CYSTIC OR COMMON DUCT OBSTRUCTION. Chest X-Ray 03/25/18 00:00 IMPRESSION: NO ACUTE RADIOGRAPHIC FINDING IN THE CHEST. Abdomen Ultrasound 03/26/18 00:00 IMPRESSION: Normal directional flow of the main portal vein and hepatic veins. Qualifiers - * PATIENT BEING DISCHARGED WITH ANY OF THE FOLLOWING DIAGNOSIS: No
== END 2018-03-28 14:15 | disposition home or self-care (01) | DRG 897 ==
LOC: ER 06:04 → EH 09:40 → 3S 12:08 → ICU 13:38 → 3W 03-24 13:37
PROVIDERS: ADMIT Internal Medicine; ATTEND Internal Medicine
DX: F10.239 Alcohol dependence with withdrawal, unspecified (principal); F11.20 Opioid dependence, uncomplicated; F19.20 Other psychoactive substance dependence, uncomplicated; K86.0 Alcohol-induced chronic pancreatitis; K70.30 Alcoholic cirrhosis of liver without ascites; K81.9 Cholecystitis, unspecified; K72.90 Hepatic failure, unspecified without coma; B18.2 Chronic viral hepatitis C; E78.5 Hyperlipidemia, unspecified; I10 Essential (primary) hypertension; M19.90 Unspecified osteoarthritis, unspecified site; M10.9 Gout, unspecified; Y90.6 Blood alcohol level of 120-199 mg/100 ml; F17.210 Nicotine dependence, cigarettes, uncomplicated
CPT/HCPCS: 36415; 71045; 76705; 78226; 80053; 80307; 81001; 82140; 83690; 83735; 84484; 85025; 85027; 85610; 85730; 93976; 96361; 96374; 96375; 96376; 99285; A9537; J1170; J1885; J2060; J2270; J2405; J3411; J3475; J3490; J7030; Q9969; S0028

== ENCOUNTER 2018-05-11 03:57 | Emergency (ER) | payer OTHER ==
[2018-05-11] MEDS ORDERED: DIAZEPAM 5 MG TABLET PO ONE (04:10)
[2018-05-11] MEDS ORDERED: HYDROMORPHONE HCL INJ/PF 2 MG/ML AMPULE IM ONE (04:10)
--- NOTE | 2018-05-11 04:15 | ER Document Report ---
ED General - General Chief Complaint: Abscess Stated Complaint: NECK PAIN Time Seen by Provider: 05/11/18 04:10 Notes: Patient is a 32-year-old male presents with complaint of a knot on his left lower neck. Patient says it started proximally week ago after he tried injecting her went over this area. He is well-known to the ER. Is a history of chronic alcohol abuse as well as heroin abuse. He has been through rehab many times and fortunately has always had relapses. He says less than a drink alcohol was last night. Denies any fevers but says he has had some sweats. No difficulty breathing or swallowing. No other complaints at this time. He says he is pretty sure that the needle did not break when he poked his neck. TRAVEL OUTSIDE OF THE [place] IN LAST 30 DAYS: No - Related Data Allergies/Adverse Reactions: carisoprodol [From Soma] Allergy (Verified 06/26/17 16:38) Sulfa (Sulfonamide Antibiotics) Allergy (Verified 06/26/17 16:38) Past Medical History - Social History Smoking Status: Current Some Day Smoker Frequency of alcohol use: Heavy Drug Abuse: Heroin Family History: CAD, CVA, Hyperlipidemia, Hypertension, Malignancy, Thyroid Disfunction - Past Medical History Cardiac Medical History: Reports: Hx Hypercholesterolemia, Hx Hypertension Pulmonary Medical History: Reports: Hx Bronchitis Neurological Medical History: Reports: Hx Cerebrovascular Accident - States he has had a TIA. Denies: Hx Seizures Renal/ Medical History: Denies: Hx Peritoneal Dialysis GI Medical History: Reports: Hx Cirrhosis, Hx Gastritis, Hx Hepatitis - Hepatitis-C, Hx Ulcer, Hx Endoscopy Musculoskeletal Medical History: Reports Hx Arthritis, Reports Hx Gout, Reports Hx Musculoskeletal Deformity, Reports Hx Musculoskeletal Trauma Psychiatric Medical History: Reports: Hx Anxiety, Hx Bipolar Disorder, Hx Post Traumatic Stress Disorder Comment Only: Hx Depression - anxiety Traumatic Medical History: Reports: Hx Fractures - Right hand Infectious Medical History: Reports: Hx Hepatitis - Hepatitis-C Past Surgical History: Reports: Hx Orthopedic Surgery - R hand - Immunizations Immunizations up to date: Yes Hx Diphtheria, Pertussis, Tetanus Vaccination: Yes Review of Systems - Review of Systems Notes: My Normal Review Basic REVIEW OF SYSTEMS: CONSTITUTIONAL : Some sweats. No objective fevers. EENT: Full knot over left lower neck. CARDIOVASCULAR: Denies chest pain. RESPIRATORY: Denies cough, cold, or chest congestion. Denies shortness of breath, difficulty breathing, or wheezing. GASTROINTESTINAL: Denies abdominal pain. Denies nausea, vomiting, MUSCULOSKELETAL: Pain over left lower neck localized to the subcutaneous knot SKIN: Denies rash or skin lesions. NEUROLOGICAL: Denies altered mental status or loss of consciousness. Denies headache. Denies weakness or paralysis or loss of use of either side. Denies problems with gait or speech. Denies sensory or motor loss. ALL OTHER SYSTEMS REVIEWED AND NEGATIVE. Physical Exam - Vital signs Vitals: Temp Pulse Resp BP Pulse Ox 98.3 F 128 H 18 141/73 H 95 05/11/18 04:01 05/11/18 04:01 05/11/18 04:01 05/11/18 04:01 05/11/18 04:01 - Notes Notes: General Appearance: Well nourished, alert, cooperative, no acute distress, mild to moderate obvious discomfort. Vitals: reviewed, See vital signs table. Head: no swelling or tenderness to the head Eyes: PERRL, EOMI, Conjuctiva clear Mouth: No decreasd moisture Throat: No tonsillar inflammation, No airway obstruction, No lymphadenopathy Neck: Patient has a a small team is not over the left lower neck. The knot is firm to palpation. There is no surrounding cellulitis. It is approximately 2 cm in diameter. Lungs: No wheezing, No rales, No rhonci, No accessory muscle use, good air exchange bilaterally. Heart: Normal rate, Regular rythm, No murmur, no rub Skin: warm, dry, appropriate color, no rash Neuro: speech clear, oriented x 3, normal affect, responds appropriately to questions. Course - Re-evaluation Re-evalutation: 05/11/18 05:57 Patient Had a second exam does not have any spreading erythema however it was a indurated area over the location where he had previously injected. The area is small. To an ultrasound which showed possible abscess. Reviewed ultrasound images in the area of purulence appeared to be small.. Patient has history of liver disease making him likely to be hypercoagulable as well as it being a very small area felt that going forward with the needle aspiration would be the most appropriate way of approaching this. I was able to aspirate a small amount of purulent drainage from the area. I then placed a Xeroform gauze and a sterile dressing over the wound. I will place him on clindamycin. I encouraged him return to ER if he has worsening of symptoms, fevers, increasing neck swelling, or feels unwell. Currently patient is not having any withdrawal. Initially gave him a dose of Valium me that my expanse with him in the past is that he will be going to withdrawal if he goes long time without alcohol. I want to make sure that he did not start having some some withdrawal while he was here. Patient currently is not tachycardic and does not have tremor looks well. I talked him at length about the need to cut back slowly on his alcohol intake and will give him resources to follow-up with regards to both opiate and alcohol abuse. Patient agrees with plan will be discharged home. Patient to return to the ER or with the doctor in 2 days for reevaluation of his neck. Dictation of this chart was performed using voice recognition software; therefore, there may be some unintended grammatical errors. - Vital Signs Vital signs: Temp Pulse Resp BP Pulse Ox 98.3 F 128 H 18 141/73 H 95 05/11/18 04:01 05/11/18 04:01 05/11/18 04:01 05/11/18 04:01 05/11/18 04:01 Discharge - Discharge Clinical Impression: Abscess Condition: Good Disposition: HOME, SELF-CARE Additional Instructions: lease avoid injecting any substance into your body. Please avoid all medications or drugs that are not prescribed for you. Please try to gradually cut back on alcohol intake until you are no longer drinking alcohol without having any withdrawl ymptoms. Please follow up with [facility] or [facility] about help with both opiate and alcohol addiction. I have provided a paper with there numbers. Please take the antibiotics as prescribed. please return to the ER immediately if you have fevers, increasing swelling, spreading redness, or if you feel that you are worsneing in any way. Please follow up in the ER or with a physician in 2 days for recheck of your neck Prescriptions: Clindamycin HCl [Cleocin 150 mg Capsule] 300 mg PO Q6 #56 capsule
--- NOTE | 2018-05-11 05:36 | RADIOLOGY REPORT (SQ) ---
EXAM DESCRIPTION: US HEAD NECK SOFT TISSUE COMPLETED DATE/TME: 05/11/2018 04:10 CLINICAL HISTORY: 32 years, Male, evaluate knot on left side of neck. LN vs abscess COMPARISON: None. TECHNIQUE: Transverse and longitudinal sonographic images of the left neck region were obtained, in the region of the patient's clinical/palpable abnormality LIMITATIONS: None. FINDINGS: A complex 3.6 x 1.3 x 2.7 cm poorly defined area is noted in the left neck superficial soft tissues. This contains internal areas of cystic change. This could reflect abscess.. IMPRESSION: Complex area corresponding to the clinical/palpable abnormality, as above for which abscess is considered copyright 2010 [employer]- All Rights Reserved
--- NOTE | 2018-05-11 05:47 | RADIOLOGY REPORT (SQ) ---
EXAM DESCRIPTION: XR NECK SOFT TISSUE COMPLETED DATE/TME: 05/11/2018 04:12 CLINICAL HISTORY: 32 years, Male, rule out foreign body left lower neck COMPARISON: None. NUMBER OF VIEWS: 2 TECHNIQUE: 2 views of the neck using soft tissue technique LIMITATIONS: None. FINDINGS: The epiglottis and aryepiglottic folds are normal. Negative for radiopaque foreign body. Prevertebral soft tissues are normal. Airway is widely patent. IMPRESSION: Negative exam copyright 2010 [employer]- All Rights Reserved
[2018-05-11] MEDS ORDERED: CLINDAMYCIN HCL 150 MG CAPSULE PO ONE (05:56)
[2018-05-11 06:14] VITALS: BP 112/62
== END 2018-05-11 06:12 | disposition home or self-care (01) ==
LOC: ER 03:57
DX: L02.11 Cutaneous abscess of neck (principal); M54.2 Cervicalgia; F11.10 Opioid abuse, uncomplicated; F10.10 Alcohol abuse, uncomplicated; F17.210 Nicotine dependence, cigarettes, uncomplicated; B19.20 Unspecified viral hepatitis C without hepatic coma; K74.60 Unspecified cirrhosis of liver; R41.9 Unspecified symptoms and signs involving cognitive functions and awareness; F31.9 Bipolar disorder, unspecified; F43.10 Post-traumatic stress disorder, unspecified; I10 Essential (primary) hypertension; E78.00 Pure hypercholesterolemia, unspecified; Z82.49 Family history of ischemic heart disease and other diseases of the circulatory system; Z86.73 Personal history of transient ischemic attack (TIA), and cerebral infarction without residual deficits
CPT/HCPCS: 10160; 99284; 96372; 70360; 76536; J1170

== ENCOUNTER 2018-06-19 19:34 | Emergency (ER) | payer OTHER ==
[2018-06-19] MEDS ORDERED: THIAMINE HCL 100 MG, FOLIC ACID 1 MG in NORMAL SALINE 250 ML IV ONE (20:28)
[2018-06-19] MEDS ORDERED: LORAZEPAM INJ 2 MG/1 ML VIAL IV ONE (20:28)
--- NOTE | 2018-06-19 20:32 | ER Document Report ---
ED General - General Chief Complaint: Accidental Overdose Stated Complaint: POSSIBLE OVERDOSE Time Seen by Provider: 06/19/18 19:50 Mode of Arrival: Medic Information source: Patient, Parent, [facility] Records Notes: 32-year-old male with known heroin abuse, alcohol abuse presents after heroin overdose. Per EMS patient's friend called when the patient became unresponsive. They did perform CPR prior to EMS arrival and then Narc is administered and the patient awoke. Patient is complaining of some anterior chest pain with palpation. He states his last alcoholic beverage was just prior to arrival. Mother is at the bedside and states that the patient lives with her. TRAVEL OUTSIDE OF THE [place] IN LAST 30 DAYS: No - HPI Onset: Just prior to arrival Onset/Duration: Sudden Quality of pain: Achy Associated symptoms: Chest pain. denies: Nausea, Vomiting, Shortness of breath Exacerbated by: Movement Relieved by: Denies Similar symptoms previously: Yes Recently seen / treated by doctor: Yes - Related Data Allergies/Adverse Reactions: carisoprodol [From Soma] Allergy (Verified 06/26/17 16:38) Sulfa (Sulfonamide Antibiotics) Allergy (Verified 06/26/17 16:38) Past Medical History - General Information source: Patient, [facility] Records - Social History Smoking Status: Current Every Day Smoker Cigarette use (# per day): Yes - 10 Chew tobacco use (# tins/day): Yes Frequency of alcohol use: Heavy Drug Abuse: Heroin Lives with: Family Family History: CAD, CVA, Hyperlipidemia, Hypertension, Malignancy, Thyroid Disfunction Patient has suicidal ideation: No Patient has homicidal ideation: No - Past Medical History Cardiac Medical History: Reports: Hx Hypercholesterolemia, Hx Hypertension Pulmonary Medical History: Reports: Hx Bronchitis Neurological Medical History: Reports: Hx Cerebrovascular Accident - States he has had a TIA. Denies: Hx Seizures Renal/ Medical History: Denies: Hx Peritoneal Dialysis GI Medical History: Reports: Hx Cirrhosis, Hx Gastritis, Hx Hepatitis - Hepatitis-C, Hx Ulcer, Hx Endoscopy Musculoskeletal Medical History: Reports Hx Arthritis, Reports Hx Gout, Reports Hx Musculoskeletal Deformity, Reports Hx Musculoskeletal Trauma Psychiatric Medical History: Reports: Hx Anxiety, Hx Bipolar Disorder, Hx Post Traumatic Stress Disorder Comment Only: Hx Depression - anxiety Traumatic Medical History: Reports: Hx Fractures - Right hand Infectious Medical History: Reports: Hx Hepatitis - Hepatitis-C Past Surgical History: Reports: Hx Orthopedic Surgery - R hand - Immunizations Immunizations up to date: Yes Hx Diphtheria, Pertussis, Tetanus Vaccination: Yes Review of Systems - Review of Systems Notes: REVIEW OF SYSTEMS: CONSTITUTIONAL : Denies fever, chills, or sweats. Denies recent illness. Denies weight loss, recent hospitalizations. EENT: Denies visual changes, eye pain. Denies sore throat, oral lesions, difficulty swallowing. CARDIOVASCULAR: Denies palpitations. Denies lower extremity edema. RESPIRATORY: Denies cough. Denies shortness of breath, wheezing. GASTROINTESTINAL: Denies abdominal pain or distention. Denies nausea, vomiting, or diarrhea. Denies blood in vomitus, stools, or per rectum. Denies black, tarry stools. Denies constipation. GENITOURINARY: Denies difficulty urinating, painful urination, frequency, blood in urine, testicular pain or penile discharge. MUSCULOSKELETAL: Denies back or neck pain or stiffness. Denies joint pain or swelling. SKIN: Denies rash, lesions or sores. HEMATOLOGIC : Denies easy bruising or bleeding. LYMPHATIC: Denies swollen glands. NEUROLOGICAL: Denies confusion or altered mental status. Denies loss of consciousness. Denies dizziness or lightheadedness. Denies headache. Denies weakness or paralysis. Denies problems difficulty with ambulation, slurred speech. Denies sensory loss, numbness, or tingling. Denies seizures. PSYCHIATRIC: Denies anxiety or stress. Denies depression, suicidal ideation, or Physical Exam - Vital signs Vitals: Resp 16 06/19/18 19:43 - Notes Notes: PHYSICAL EXAMINATION: GENERAL: Well-appearing, well-nourished and in no acute distress. HEAD: Atraumatic, normocephalic. EYES: Pupils equal round and reactive to light, extraocular movements intact, sclera anicteric, conjunctiva are normal. ENT: Nares patent, oropharynx clear without exudates. Moist mucous membranes. NECK: Normal range of motion, supple without lymphadenopathy LUNGS: Breath sounds clear to auscultation bilaterally and equal. No wheezes rales or rhonchi. HEART: Regular rate and rhythm without murmurs ABDOMEN: Soft, nontender, nondistended abdomen. No guarding, no rebound. No masses appreciated. Musculoskeletal: Normal range of motion, no pitting or edema. No cyanosis. NEUROLOGICAL: Cranial nerves grossly intact. Normal speech, normal gait. Normal sensory, motor exams PSYCH: Normal mood, normal affect. SKIN: Warm, Dry, normal turgor, no rashes or lesions noted. Course - Re-evaluation Re-evalutation: 06/20/18 00:16 Patient presents after an acute opiate overdose, reversed in the field by EMS with naloxone. Patient presents nontoxic in appearance, in no distress, admits to ongoing opiate abuse, alcohol abuse. I had an extensive conversation with the patient about the dangers opiate abuse, have emphasized that they are never going to be certain what they are self administering particularly given the high rates of fentanyl in our community. Rehab resources have been offered. No indication for labs. Chest x-ray and EKG were performed because of the patient's complaint of chest pain which was likely secondary to his friend doing CPR when he became unresponsive. Chest x-ray and EKG within normal limits. Patient did receive thiamine, folic acid, IV fluids, Ativan due to his concern that he may go through alcohol withdrawal although his last drink was only a few hours ago. Patient has remained awake, alert, oriented without any evidence of somnolence, hypoventilation or bradycardia to suggest ongoing opiate intoxication that would warrant further observation. At this time will discharge with return precautions and follow-up recommendations. Verbal discharge instructions given a the bedside and opportunity for questions given. Medication warnings reviewed. Patient is in agreement with this plan and has verbalized understanding of return precautions and the need for primary care follow-up in the next 24-72 hours. - Vital Signs Vital signs: Temp Pulse Resp BP Pulse Ox 98.6 F 19 117/74 94 06/19/18 22:01 06/19/18 22:01 06/19/18 22:01 06/19/18 22:01 Discharge - Discharge Clinical Impression: History of alcoholism Heroin overdose Qualifiers: Encounter type: initial encounter Injury intent: accidental or unintentional Qualified Code(s): T40.1X1A - Poisoning by heroin, accidental (unintentional), initial encounter Condition: Good Disposition: HOME, SELF-CARE Instructions: Chronic Alcoholism ([facility]), Overdose ([facility]), Overdose / Ingestion ([facility]) Additional Instructions: You were seen today for heroin overdose. Please never use opiates of any kind. Over 130 people every day in the [place] from opiate overdoses. Do not become a statistic. You should urgently seek rehab or a similar resource. You can call 1-373-739-CPGF to find local resources. Return if you have any symptoms that are concerning to you including difficulty breathing, fever, persistent vomiting, or any other symptoms that are concerning to you. You have been sent home on medication to help withdraw from alcohol. You should only start taking this medication and discontinue alcohol if you are seroius about quitting alcohol. This will not completely remove all your symptoms from withdrawal should make it so that your symptoms are more manageable. You need to return to the emergency room immediately if you pass out, or vomiting so severely your unable to keep anything down, start hallucinate, or have any other symptoms that are of concern to you. You need to go to an inpatient program and should speak with your primary care doctor regarding these resources. How to take the librium to come off alcohol. DO NOT DRINK ANY ALCOHOL WHILE USING THIS MEDICATION Day 1-3: 75mg PO TID Day 4-6: 50mg PO TID Day 7-9: 25mg PO TID Day 10-12: 25mg PO BID Day 13-15: 25mg PO daily PRN Prescriptions: Chlordiazepoxide HCl [Librium 25 mg Capsule] 1 cap PO ASDIR PRN #25 capsule PRN Reason:
--- NOTE | 2018-06-19 20:35 | EKG REPORT ---
SEVERITY:- ABNORMAL ECG - SINUS RHYTHM NONSPECIFIC T ABNORMALITIES, INFERIOR LEADS BORDERLINE PROLONGED QT INTERVAL : Confirmed by: Rory Valadez MD 19-Jun-2018 20:34:46
--- NOTE | 2018-06-19 20:47 | RADIOLOGY REPORT (SQ) ---
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 TECHNIQUE: Single frontal radiographic view of the chest acquired. RADIATION DOSE: NA LIMITATIONS: None. FINDINGS: LUNGS AND PLEURA: No opacities, masses or pneumothorax. No pleural effusion. MEDIASTINUM AND HILAR STRUCTURES: No masses. Contour normal. HEART AND VASCULAR STRUCTURES: Heart normal in size. Normal vasculature. BONES: No acute findings. HARDWARE: None in the chest. OTHER: No other significant finding. IMPRESSION: NO ACUTE RADIOGRAPHIC FINDING IN THE CHEST. TECHNICAL DOCUMENTATION: JOB ID: [id number] [employer]- All Rights Reserved Reading location - IP/workstation name: [email or web address]
[2018-06-19] MEDS ORDERED: DIAZEPAM 5 MG TABLET PO ONE (21:47)
[2018-06-19 22:19] VITALS: BP 117/74
== END 2018-06-19 22:25 | disposition home or self-care (01) ==
LOC: ER 19:34
DX: T40.1X1A Poisoning by heroin, accidental (unintentional), initial encounter (principal); F10.10 Alcohol abuse, uncomplicated; R07.9 Chest pain, unspecified; X58.XXXA Exposure to other specified factors, initial encounter; F17.210 Nicotine dependence, cigarettes, uncomplicated; E78.00 Pure hypercholesterolemia, unspecified; I10 Essential (primary) hypertension; Z88.2 Allergy status to sulfonamides; Z86.74 Personal history of sudden cardiac arrest; Z86.19 Personal history of other infectious and parasitic diseases
CPT/HCPCS: 93005; 99285; 71045; 93010; J3490; J2060; J3411; J7050

== ENCOUNTER 2018-10-27 08:11 | Emergency (ER) | payer OTHER ==
[2018-10-27 08:48] LABS: ABSOLUTE LYMPHOCYTES (AUTO) 1.3 10^3/uL (0.5-4.7); ABSOLUTE MONOCYTES (AUTO) 0.4 10^3/uL (0.1-1.4); ABSOLUTE NEUT (AUTO) 5.1 10^3/uL (1.7-8.2); BASOPHILS % (AUTO) 0.4 % (0-2); EOSINOPHILS % (AUTO) 0.7 % (0-6); HEMATOCRIT 38.6 % (37.9-51.0); LYMPHOCYTES % (AUTO) 18.6 % (13-45); MEAN CORPUSCULAR HEMOGLOBIN 31.1 pg (27.0-33.4); MEAN CORPUSCULAR HGB CONC 33.6 g/dL (32.0-36.0); MEAN CORPUSCULAR VOLUME 93 fl (80-97); MONOCYTES % (AUTO) 5.7 % (3-13); PLATELET COUNT 162 10^3/uL (150-450); RED BLOOD COUNT 4.17 10^6/uL (4.35-5.55); SEGMENTED NEUTROPHILS % (AUTO) 74.6 % (42-78); TOTAL CELLS COUNTED % (AUTO) 100 %; WHITE BLOOD COUNT 6.8 10^3/uL (4.0-10.5)
[2018-10-27 08:51] LABS: APPEARANCE,URINE CLEAR; BILIRUBIN,URINE SMALL (NEGATIVE); COLOR,URINE AMBER; GLUCOSE, URINE NEGATIVE (NEGATIVE); KETONES,URINE NEGATIVE (NEGATIVE); LEUKOCYTE ESTERASE,URINE NEGATIVE (NEGATIVE); NITRITE,URINE NEGATIVE (NEGATIVE); PROTEIN,URINE 30 mg/dL (NEGATIVE); URINE SPECIFIC GRAVITY 1.016
[2018-10-27 09:09] LABS: ALANINE AMINOTRANSFERASE 24 U/L (21-72); ALBUMIN 3.9 g/dL (3.5-5.0); ALKALINE PHOSPHATASE 420 U/L (38-126); ANION GAP 15 (5-19); ASPARTATE AMINO TRANSFERASE 100 U/L (17-59); BILIRUBIN,DIRECT 2.7 mg/dL (0.0-0.4); BILIRUBIN,TOTAL 3.7 mg/dL (0.2-1.3); CARBON DIOXIDE 28 mmol/L (22-30); CHLORIDE 97 mmol/L (98-107); GLUCOSE 157 mg/dL (75-110); LIPASE 75.3 U/L (23-300); POTASSIUM 3.5 mmol/L (3.6-5.0); SODIUM 140.1 mmol/L (137-145); TOTAL PROTEIN 8.9 g/dL (6.3-8.2)
[2018-10-27 09:10] LABS: BLOOD UREA NITROGEN < 2 mg/dL (7-20)
[2018-10-27] MEDS ORDERED: MORPHINE SULFATE 10 MG/ML INJ IV ONE (09:40)
[2018-10-27] MEDS ORDERED: ONDANSETRON HCL INJ/PF 4 MG/2 ML SDV IV ONE (09:40)
[2018-10-27 09:41] LABS: ALCOHOL 38 mg/dL (NONE DETECTED)
[2018-10-27 10:03] LABS: URINE AMPHETAMINES SCREEN NEGATIVE; URINE BARBITURATES SCREEN NEGATIVE; URINE BENZODIAZEPINES SCREEN UNCONFIRMED POSITIVE; URINE COCAINE SCREEN UNCONFIRMED POSITIVE; URINE MARIJUANA (THC) SCREEN UNCONFIRMED POSITIVE; URINE METHADONE SCREEN NEGATIVE; URINE PHENCYCLIDINE SCREEN NEGATIVE
[2018-10-27 10:22] LABS: INTERNATIONAL RATION (INR) 1.16; PROTHROMBIN TIME 15.4 SEC (11.4-15.4)
[2018-10-27] MEDS: MAGNESIUM SULFATE/D5W 1 GM/100 ML RTUPB IV SCH ×2 (11:16→11:48)
--- NOTE | 2018-10-27 12:23 | RADIOLOGY REPORT (SQ) ---
EXAM DESCRIPTION: ABDOMEN 2 VIEWS COMPLETED DATE/TIME: 10/27/2018 12:09 pm REASON FOR STUDY: Upper abdominal pain COMPARISON: 10/18/2017 NUMBER OF VIEWS: Two views. TECHNIQUE: Supine and erect/decubitus radiographic images of the abdomen acquired. LIMITATIONS: None. FINDINGS: FREE AIR: None. No abnormal gas collections. LUNG BASES: Clear. BOWEL GAS PATTERN: Nonobstructive pattern. No dilated loops or air fluid levels. CALCIFICATIONS: No suspicious calcifications. SOFT TISSUES: The spleen appears prominent. No abnormal calcifications. HARDWARE: None in the abdomen. BONES: No acute fracture. No worrisome bone lesions. OTHER: No other significant finding. IMPRESSION: The spleen appears somewhat enlarged. Otherwise unremarkable radiographic appearance of the abdomen and pelvis. TECHNICAL DOCUMENTATION: JOB ID: [id number]- All Rights Reserved Reading location - IP/workstation name: [email or web address]
[2018-10-27] MEDS ORDERED: MAG HYDROX/AL HYDROX/SIMETH SUSP 30 ML UDCUP PO ONE (12:41)
[2018-10-27] MEDS ORDERED: LIDOCAINE 2% VISCOUS SOLN 20 ML UDCUP PO ONE (12:41)
[2018-10-27] MEDS ORDERED: CLONIDINE HCL 0.1 MG TABLET PO ONE (12:42)
--- NOTE | 2018-10-27 13:33 | RADIOLOGY REPORT (SQ) ---
EXAM DESCRIPTION: CT ABD/PELVIS NO ORAL OR IV COMPLETED DATE/TIME: 10/27/2018 1:08 pm REASON FOR STUDY: Epigastric abdominal pain.Cirrhosis. Splenomegaly COMPARISON: 11/03/2015 TECHNIQUE: CT scan of the abdomen and pelvis performed without intravenous or oral contrast. Images reviewed with lung, soft tissue, and bone windows. Reconstructed coronal and sagittal MPR images revi ewed. All images stored on PACS. All CT scanners at this facility use dose modulation, iterative reconstruction, and/or weight based d osing when appropriate to reduce radiation dose to as low as reasonably achievable (ALARA). [facility]: Dose Right [facility]: CareDose [facility]: Dose Right [facility]: Teradose 4D [facility]: Smart [employer] RADIATION DOSE: CT Rad equipment meets quality standard of care and radiation dose reduction techniq ues were employed. CTDIvol: 14.0 mGy. DLP: 823 mGy-cm.mGy. LIMITATIONS: None. FINDINGS: LOWER CHEST: No significant findings. No nodules or infiltrates. NON-CONTRASTED LIVER, SPLEEN, ADRENALS: Hepatosplenomegaly. PANCREAS: No masses. No peripancreatic inflammatory changes. GALLBLADDER: No identified stones by CT criteria. No inflammatory changes to suggest cholecystitis. RIGHT KIDNEY AND URETER: No suspicious masses. Assessment limited by lack of IV contrast. No signif icant calcifications. No hydronephrosis or hydroureter. LEFT KIDNEY AND URETER: No suspicious masses. Assessment limited by lack of IV contrast. No signifi cant calcifications. No hydronephrosis or hydroureter. AORTA AND RETROPERITONEUM: No aneurysm. There are some nonspecific subcentimeter sized retroperitone al nodes. BOWEL AND PERITONEAL CAVITY: Mild sigmoid diverticulosis with no associated inflammation. No obvious bowel mass. No bowel obstruction. APPENDIX: Normal. PELVIS, BLADDER, AND ABDOMINAL WALL:The bladder is not well filled and not well evaluated. No pelvic mass or fluid collection. BONES: No significant findings. OTHER: No other significant finding. IMPRESSION: Hepatosplenomegaly. Multiple small nonspecific retroperitoneal lymph nodes. Mild diver ticulosis coli. COMMENT: Quality ID # [id number]: Final reports with documentation of one or more dose reduction techniques (e.g., Automated exposure control, adjustment of the mA and/or kV according to patient size, use of iterative reconstruction technique) TECHNICAL DOCUMENTATION: JOB ID: [id number] [employer]- All Rights Reserved Reading location - IP/workstation name: [email or web address]
[2018-10-27 13:49] VITALS: BP 119/73
--- NOTE | 2018-10-27 14:22 | ER Document Report ---
Entered by BHASKAR FREY SCRIBE 10/27/18 0917 Acting as scribe for:LES METZ MD ED General - General Chief Complaint: Abdominal Pain Stated Complaint: ABDOMINAL PAIN Time Seen by Provider: 10/27/18 08:55 Mode of Arrival: Ambulatory Information source: Patient, [facility] Records Notes: Patient is a 33-year-old male with hepatitis presenting to the emergency depar tment complaining of abdominal pain. Patient states that the pain started x1 week ago and that he has been vomiting everyday. Patient reports that he has been "shaking for the last day or so" but his last drink was last night at 23:00. Patient states that he injected heroin yesterday morning. Patient states that he went to rehab for alcohol abuse last year and was in for 28 days but began drinking immediately after leaving. TRAVEL OUTSIDE OF THE [place] IN LAST 30 DAYS: No - Related Data Allergies/Adverse Reactions: carisoprodol [From Soma] Allergy (Verified 10/27/18 08:11) Sulfa (Sulfonamide Antibiotics) Allergy (Verified 10/27/18 08:11) Past Medical History - General Information source: Patient, [facility] Records - Social History Smoking Status: Current Every Day Smoker Cigarette use (# per day): Yes - 1/2 PPD Chew tobacco use (# tins/day): No Smoking Education Provided: No Frequency of alcohol use: Heavy Drug Abuse: Heroin Occupation: Unemployed Lives with: Parents Family History: Reviewed & Not Pertinent, CAD, CVA, Hyperlipidemia, Hypertension, Malignancy, Thyroid Disfunction Patient has suicidal ideation: No Patient has homicidal ideation: No - Past Medical History Cardiac Medical History: Reports: Hx Hypercholesterolemia, Hx Hypertension Pulmonary Medical History: Reports: Hx Bronchitis Neurological Medical History: Reports: Hx Cerebrovascular Accident - States he has had a TIA GI Medical History: Reports: Hx Cirrhosis, Hx Gastritis, Hx Hepatitis - Hepatitis-C, Hx Ulcer, Hx Endoscopy Musculoskeletal Medical History: Reports Hx Arthritis, Reports Hx Gout, Reports Hx Musculoskeletal Deformity, Reports Hx Musculoskeletal Trauma Psychiatric Medical History: Reports: Hx Anxiety, Hx Bipolar Disorder, Hx Depression, Hx Post Traumatic Stress Disorder Traumatic Medical History: Reports: Hx Fractures - Right hand Infectious Medical History: Reports: Hx Hepatitis - Hepatitis-C Past Surgical History: Reports: Hx Orthopedic Surgery - R hand - Immunizations Immunizations up to date: Yes Hx Diphtheria, Pertussis, Tetanus Vaccination: Yes Review of Systems - Review of Systems Constitutional: See HPI, Other - Shaking, loss of appetite EENT: No symptoms reported Cardiovascular: No symptoms reported Respiratory: No symptoms reported Gastrointestinal: See HPI, Abdominal pain, Vomiting Genitourinary: No symptoms reported Male Genitourinary: No symptoms reported Musculoskeletal: No symptoms reported Skin: No symptoms reported Hematologic/Lymphatic: No symptoms reported Neurological/Psychological: No symptoms reported -: Yes All other systems reviewed and negative Physical Exam - Vital signs Vitals: Temp Pulse Resp BP 98.1 F 106 H 16 149/87 H 10/27/18 08:12 10/27/18 08:12 10/27/18 08:12 10/27/18 08:12 - Notes Notes: Physical Exam: General: Alert, obese. HEENT: Normocephalic. Atraumatic. PERRL. Extraocular movements intact. Oropharynx clear. Neck: Supple. Non-tender. Respiratory: No respiratory distress. Clear and equal breath sounds bilaterally. Cardiovascular: Slightly tachycardic. Regular rhythm. Abdominal: Distended. Guarding. Stretch terrazas. Right upper quadrant tenderness to palpation. Epigastric tenderness to palpation. Normal Bowel Sounds. Back: Non-tender. No deformity or step off. Extremities: Moves all four extremities. Upper extremities: Normal inspection. Normal ROM. Lower extremities: Normal inspection. No edema. Normal ROM. Neurological: Normal cognition. AAOx4. Normal speech. Psychological: Normal affect. Normal Mood. Skin: Warm. Dry. Normal color. Course - Re-evaluation Re-evalutation: 10/27/18 12:40 Patient's KUB does show some splenomegaly which has not been commented on in the past. I cannot find any studies that would have shown the spleen in the last few years. He does have known cirrhosis, portal hypertension and this may be the cause of the splenomegaly. Due to his persistent epigastric pain with no clear explanation, I will do a CT scan of the abdomen pelvis without contrast. At this time the patient seems quite relaxed and comfortable, although he is wanting to know if he goes home what medications I will give him for his withdrawal symptoms. He is specifically asking for Ativan. His urine drug screen was positive for opiates, benzodiazepines, cocaine, and marijuana. He specifically denies taking any bodies benzos in the last at least 2 weeks. When asked what he was going to do if it is determined it is safe for him to be discharged, he states he will probably go see about getting into a detox program. - Vital Signs Vital signs: Temp Pulse Resp BP Pulse Ox 98.4 F 82 18 119/73 97 10/27/18 13:48 10/27/18 13:48 10/27/18 13:48 10/27/18 13:48 10/27/18 13:48 - Laboratory Result Diagrams: 10/27/18 08:29 10/27/18 08:29 Laboratory results interpreted by me: 10/27/18 10/27/18 10/27/18 08:29 08:29 08:29 RBC 4.17 L Hgb 13.0 L RDW 16.0 H Potassium 3.5 L Chloride 97 L BUN < 2 L Glucose 157 H Magnesium Total Bilirubin 3.7 H Direct Bilirubin 2.7 H AST 100 H Alkaline Phosphatase 420 H Total Protein 8.9 H Urine Protein 30 H Urine Bilirubin SMALL H Urine Urobilinogen 4.0 H 10/27/18 08:29 RBC Hgb RDW Potassium Chloride BUN Glucose Magnesium 0.9 L* Total Bilirubin Direct Bilirubin AST Alkaline Phosphatase Total Protein Urine Protein Urine Bilirubin Urine Urobilinogen - Diagnostic Test Radiology reviewed: Image reviewed, Reports reviewed - CT scan of the abdomen pelvis shows hepatosplenomegaly, mild sigmoid diverticulosis. No acute findings. Discharge - Discharge Clinical Impression: Chronic alcohol abuse, Marijuana use, Polysubstance abuse, Cocaine abuse, Heroin abuse, Epigastric abdominal pain, Portal hypertension, Hepatosplenomegaly Alcoholic cirrhosis of liver Qualifiers: Ascites presence: without ascites Qualified Code(s): K70.30 - Alcoholic cirrhosis of liver without ascites Condition: Stable Disposition: HOME, SELF-CARE Additional Instructions: Abdominal Pain There are many causes of abdominal pain. Pain can mean a serious problem requiring surgery (such as appendicitis). It can also be an innocent problem that goes away on its own (such as a viral infection). Often, time must pass to determine the cause of pain. The physician does not feel that hospitalization is necessary, at present. Things may change within the next 24 hours. Call the doctor or come back for re- examination if any problems occur, such as: (1) Pain that becomes more severe, steady, or becomes concentrated in one specific area. Also, pain that is more severe with movement or coughing. (2) Vomiting that persists or becomes more frequent. (3) Blood in the vomitus, urine, or bowel movements. Blood in the stool may have a tarry or black appearance. (4) Shaking chills or fever greater than 100 degrees F. (5) The abdomen becomes more distended or swollen. (6) Bowel movements cease. (7) Failure to improve as expected. No specific cause for your abdominal pain was found, it is probably related to alcoholic gastritis. You are not experiencing alcohol withdrawal symptoms at this time. You will be prescribed clonidine to take to help reduce your alcohol withdrawal symptoms if you do decide to stop drinking. You should follow-up with 1 of the local mental health providers to discuss reentering and alcohol and substance abuse program. Follow-up with a local medical doctor as needed. RETURN TO THE EMERGENCY ROOM IF ANY NEW OR WORSENING SYMPTOMS. Prescriptions: Clonidine HCl [Catapres 0.1 mg Tablet] 0.1 mg PO Q8 #15 tablet Scribe Attestation: 10/27/18 09:41 I personally performed the services described in the documentation, reviewed and edited the documentation which was dictated to the scribe in my presence, and it accurately records my words and actions. I personally performed the services described in the documentation, reviewed and edited the documentation which was dictated to the scribe in my presence, and it accurately records my words and actions.
== END 2018-10-27 14:10 | disposition home or self-care (01) ==
LOC: ER 08:11
DX: K70.30 Alcoholic cirrhosis of liver without ascites (principal); K76.6 Portal hypertension; R16.2 Hepatomegaly with splenomegaly, not elsewhere classified; F10.20 Alcohol dependence, uncomplicated; F12.20 Cannabis dependence, uncomplicated; F19.10 Other psychoactive substance abuse, uncomplicated; F11.10 Opioid abuse, uncomplicated; F14.20 Cocaine dependence, uncomplicated; F15.10 Other stimulant abuse, uncomplicated; R10.13 Epigastric pain; R10.9 Unspecified abdominal pain; R11.10 Vomiting, unspecified; F17.210 Nicotine dependence, cigarettes, uncomplicated; I10 Essential (primary) hypertension
CPT/HCPCS: 99284; 96375; 96365; 96366; 36415; 80307 ×2; 83690; 83735; 85025; 85610; 80053; 81001; 74019; 74176; J3490; J2270; J3475; J2405

== ENCOUNTER 2018-11-22 11:52 | Inpatient (IN) | payer SELFPAY ==
--- NOTE | 2018-11-22 12:28 | ER Document Report ---
ED Medical Screen (RME) - General Chief Complaint: Abdominal Pain Stated Complaint: ABDOMINAL PAIN Time Seen by Provider: 11/22/18 12:24 Mode of Arrival: Ambulatory Information source: Patient Notes: 33-year-old male presented to ED for complaint of severe abdominal pain nausea vomiting diarrhea palpitation. He has a history of cirrhosis. He drinks alcohol he states by the hour. He is also a heroin addict. He states he last used heroin yesterday. Patient is alert and oriented states he is in severe pain at this time. Abdomen is very distended. Apical pulse of 135 I have greeted and performed a rapid initial assessment of this patient. A comprehensive ED assessment and evaluation of the patient, analysis of test results and completion of medical decision making process will be conducted by an additional ED providers. Dictation of this chart was performed using voice recognition software; therefore, there may be some unintended grammatical errors. TRAVEL OUTSIDE OF THE [place] IN LAST 30 DAYS: No - Related Data Allergies/Adverse Reactions: carisoprodol [From Soma] Allergy (Verified 11/22/18 11:58) Sulfa (Sulfonamide Antibiotics) Allergy (Verified 11/22/18 11:58) Past Medical History - Social History Chew tobacco use (# tins/day): No Frequency of alcohol use: Heavy Drug Abuse: Heroin - Past Medical History Cardiac Medical History: Reports: Hx Hypercholesterolemia, Hx Hypertension Pulmonary Medical History: Reports: Hx Bronchitis Neurological Medical History: Reports: Hx Cerebrovascular Accident - States he has had a TIA. Denies: Hx Seizures Renal/ Medical History: Denies: Hx Peritoneal Dialysis GI Medical History: Reports: Hx Cirrhosis, Hx Gastritis, Hx Hepatitis - Hepatitis-C, Hx Ulcer, Hx Endoscopy Musculoskeltal Medical History: Reports Hx Arthritis, Reports Hx Gout, Reports Hx Musculoskeletal Deformity, Reports Hx Musculoskeletal Trauma Psychiatric Medical History: Reports: Hx Anxiety, Hx Bipolar Disorder, Hx Depression, Hx Post Traumatic Stress Disorder Traumatic Medical History: Reports: Hx Fractures - Right hand Infectious Medical History: Reports: Hx Hepatitis - Hepatitis-C Past Surgical History: Reports: Hx Orthopedic Surgery - R hand - Immunizations Immunizations up to date: Yes Hx Diphtheria, Pertussis, Tetanus Vaccination: Yes History of Influenza Vaccine for 03/2017 - 08/2017 Season: Refused Physical Exam - Vital signs Vitals: Temp Pulse Resp BP Pulse Ox 98.7 F 136 H 16 150/90 H 97 11/22/18 12:11 11/22/18 12:11 11/22/18 12:11 11/22/18 12:11 11/22/18 12:11 Course - Vital Signs Vital signs: Temp Pulse Resp BP Pulse Ox 98.7 F 136 H 16 150/90 H 97 11/22/18 12:11 11/22/18 12:11 11/22/18 12:11 11/22/18 12:11 11/22/18 12:11
[2018-11-22] MEDS ORDERED: NORMAL SALINE 1000 ML 1,000 ML IV ONE ×2 (12:45→13:33)
[2018-11-22 13:02] LABS: ABSOLUTE BASOPHILS # (AUTO) 0.1 10^3/uL (0.0-0.2); ABSOLUTE LYMPHOCYTES (AUTO) 1.4 10^3/uL (0.5-4.7); ABSOLUTE MONOCYTES (AUTO) 0.3 10^3/uL (0.1-1.4); ABSOLUTE NEUT (AUTO) 8.1 10^3/uL (1.7-8.2); BASOPHILS % (AUTO) 1.2 % (0-2); EOSINOPHILS % (AUTO) 0.2 % (0-6); HEMATOCRIT 41.1 % (37.9-51.0); HEMOGLOBIN 14.2 g/dL (13.5-17.0); LYMPHOCYTES % (AUTO) 14.1 % (13-45); MEAN CORPUSCULAR HEMOGLOBIN 32.3 pg (27.0-33.4); MEAN CORPUSCULAR HGB CONC 34.4 g/dL (32.0-36.0); MEAN CORPUSCULAR VOLUME 94 fl (80-97); MONOCYTES % (AUTO) 3.2 % (3-13); PLATELET COUNT 177 10^3/uL (150-450); RED BLOOD COUNT 4.38 10^6/uL (4.35-5.55); SEGMENTED NEUTROPHILS % (AUTO) 81.3 % (42-78); TOTAL CELLS COUNTED % (AUTO) 100 %; WHITE BLOOD COUNT 9.9 10^3/uL (4.0-10.5)
[2018-11-22] MEDS ORDERED: LORAZEPAM INJ 2 MG/1 ML VIAL IV ONE (13:07)
[2018-11-22] MEDS ORDERED: MORPHINE SULFATE 10 MG/ML INJ IV ONE (13:14)
--- NOTE | 2018-11-22 13:19 | ER Document Report ---
ED GI/ - General Chief Complaint: Abdominal Pain Stated Complaint: ABDOMINAL PAIN Time Seen by Provider: 11/22/18 12:24 Mode of Arrival: Ambulatory Notes: 33-year-old male with history of chronic alcoholism, cirrhosis of the liver, hep C, IV drug use last use yesterday presents to the emergency department with chief complaint of severe abdominal pain, nausea, vomiting, abdominal distention. Patient drinks over 1/5 a day, last drink this morning at 6 AM and states he is trying to quit. Patient is in acute distress and tachycardic. Patient denies fevers or recent illness, headache, dizziness or lightheadedness, complains of nausea, vomited about 1 hour ago, complains of distention. TRAVEL OUTSIDE OF THE [place] IN LAST 30 DAYS: No - Related Data Allergies/Adverse Reactions: carisoprodol [From Soma] Allergy (Verified 11/22/18 11:58) Sulfa (Sulfonamide Antibiotics) Allergy (Verified 11/22/18 11:58) Past Medical History - General Information source: Patient - Social History Smoking Status: Current Every Day Smoker Chew tobacco use (# tins/day): No Frequency of alcohol use: Heavy Drug Abuse: Heroin Family History: Reviewed & Not Pertinent, CAD, CVA, Hyperlipidemia, Hypertension, Malignancy, Thyroid Disfunction Patient has suicidal ideation: No Patient has homicidal ideation: No - Past Medical History Cardiac Medical History: Reports: Hx Hypercholesterolemia, Hx Hypertension Pulmonary Medical History: Reports: Hx Bronchitis Neurological Medical History: Reports: Hx Cerebrovascular Accident - States he has had a TIA. Denies: Hx Seizures Renal/ Medical History: Denies: Hx Peritoneal Dialysis GI Medical History: Reports: Hx Cirrhosis, Hx Gastritis, Hx Hepatitis - Hepatitis-C, Hx Ulcer, Hx Endoscopy Musculoskeletal Medical History: Reports Hx Arthritis, Reports Hx Gout, Reports Hx Musculoskeletal Deformity, Reports Hx Musculoskeletal Trauma Psychiatric Medical History: Reports: Hx Anxiety, Hx Bipolar Disorder, Hx Depression, Hx Post Traumatic Stress Disorder Traumatic Medical History: Reports: Hx Fractures - Right hand Infectious Medical History: Reports: Hx Hepatitis - Hepatitis-C Past Surgical History: Reports: Hx Orthopedic Surgery - R hand - Immunizations Immunizations up to date: Yes Hx Diphtheria, Pertussis, Tetanus Vaccination: Yes Review of Systems - Review of Systems Constitutional: See HPI EENT: No symptoms reported Cardiovascular: See HPI Respiratory: See HPI Gastrointestinal: See HPI Genitourinary: No symptoms reported Male Genitourinary: No symptoms reported Musculoskeletal: No symptoms reported Skin: No symptoms reported Hematologic/Lymphatic: No symptoms reported Neurological/Psychological: See HPI Physical Exam - Vital signs Vitals: Temp Pulse Resp BP Pulse Ox 98.7 F 136 H 16 150/90 H 97 11/22/18 12:11 11/22/18 12:11 11/22/18 12:11 11/22/18 12:11 11/22/18 12:11 - Notes Notes: PHYSICAL EXAMINATION: Reviewed vital signs and charting by RN GENERAL: Alert, interacts well. In acute distress. HEAD: Normocephalic, atraumatic. EYES: Pupils equal and round. Extraocular movements intact. Scleral icterus ENT: Oral mucosa moist, tongue midline. NECK: Full range of motion. Trachea midline. LUNGS: Clear to auscultation bilaterally, no wheezes, rales, or rhonchi. No respiratory distress. HEART: Tachycardic ABDOMEN: Distended, tenderness to palpation generalized, soft EXTREMITIES: Moves all 4 extremities spontaneously. No edema, No cyanosis. PSYCH: Normal affect, normal mood. SKIN: Warm, dry, normal turgor. Jaundice Course - Re-evaluation Re-evalutation: 11/22/18 13:19 Presents in acute distress and tachycardic. Ativan 1 mg IV given and morphine 2 mg IV given. Lab work is pending but patient does not have a leukocytosis at this time. 11/22/18 13:39 Lab work complete, no evidence of acute alcoholic pancreatitis, direct bilirubin and total bilirubin are elevated but nothing grossly elevated from previous trends. Patient is still tachycardic at 115. I talked with Dr. Rodgers, hospitalist, who accepted the patient for full admission to [facility]. - Vital Signs Vital signs: Temp Pulse Resp BP Pulse Ox 98.7 F 136 H 16 150/90 H 97 11/22/18 12:11 11/22/18 12:11 11/22/18 12:11 11/22/18 12:11 11/22/18 12:11 - Laboratory Result Diagrams: 11/22/18 12:50 11/22/18 12:50 Laboratory results interpreted by me: 11/22/18 11/22/18 12:50 12:50 RDW 16.0 H Seg Neutrophils % 81.3 H BUN < 2 L Total Bilirubin 2.2 H Direct Bilirubin 1.6 H AST 107 H ALT 9 L Alkaline Phosphatase 463 H Total Protein 9.2 H Acetaminophen < 10 L Discharge - Discharge Clinical Impression: Alcohol withdrawal Qualifiers: Complication of substance-induced condition: uncomplicated Qualified Code(s): F10.230 - Alcohol dependence with withdrawal, uncomplicated Condition: Stable Disposition: ADMITTED INPATIENT Admitting Provider: Ana Maria (Hospitalist) Unit Admitted: [facility]
[2018-11-22 13:22] LABS: ALANINE AMINOTRANSFERASE 9 U/L (21-72); ALBUMIN 3.9 g/dL (3.5-5.0); ALCOHOL 178 mg/dL (NONE DETECTED); ALKALINE PHOSPHATASE 463 U/L (38-126); ANION GAP 17 (5-19); ASPARTATE AMINO TRANSFERASE 107 U/L (17-59); BILIRUBIN,DIRECT 1.6 mg/dL (0.0-0.4); BILIRUBIN,TOTAL 2.2 mg/dL (0.2-1.3); CALCIUM 9.1 mg/dL (8.4-10.2); CARBON DIOXIDE 25 mmol/L (22-30); CHLORIDE 101 mmol/L (98-107); GLUCOSE 104 mg/dL (75-110); LIPASE 117.4 U/L (23-300); POTASSIUM 3.8 mmol/L (3.6-5.0); SODIUM 142.6 mmol/L (137-145); TOTAL PROTEIN 9.2 g/dL (6.3-8.2)
[2018-11-22 13:23] LABS: ACETAMINOPHEN < 10 ug/mL (10-30); BLOOD UREA NITROGEN < 2 mg/dL (7-20)
[2018-11-22] MEDS ORDERED: ONDANSETRON HCL INJ/PF 4 MG/2 ML SDV IV ONE (13:28)
[2018-11-22] MEDS ORDERED: THIAMINE HCL 100 MG TABLET PO ONE (13:34)
[2018-11-22] MEDS ORDERED: FOLIC ACID 1 MG TABLET PO ONE (13:34)
--- NOTE | 2018-11-22 13:39 | RADIOLOGY REPORT (SQ) ---
EXAM DESCRIPTION: CHEST 2 VIEWS COMPLETED DATE/TIME: 11/22/2018 1:26 pm REASON FOR STUDY: severe pain palpitations COMPARISON: 06/19/2018 EXAM PARAMETERS: NUMBER OF VIEWS: two views TECHNIQUE: Digital Frontal and Lateral radiographic views of the chest acquired. RADIATION DOSE: NA LIMITATIONS: none FINDINGS: LUNGS AND PLEURA: No opacities, masses or pneumothorax. No pleural effusion. MEDIASTINUM AND HILAR STRUCTURES: No masses or contour abnormalities. HEART AND VASCULAR STRUCTURES: Heart normal size. No evidence for failure. BONES: No acute findings. HARDWARE: None in the chest. OTHER: No other significant finding. IMPRESSION: NO ACUTE RADIOGRAPHIC FINDING IN THE CHEST. TECHNICAL DOCUMENTATION: JOB ID: [id number] [employer]- All Rights Reserved Reading location - IP/workstation name: [email or web address]
[2018-11-22] MEDS ORDERED: IPRATROPIUM/ALBUTEROL 0.5-2.5 MG/3 ML AMPUL NEB PRN (14:15)
[2018-11-22] MEDS ORDERED: ACETAMINOPHEN 325 MG TABLET PO PRN (14:15)
[2018-11-22] MEDS ORDERED: ONDANSETRON HCL INJ/PF 4 MG/2 ML SDV IV PRN (14:15)
[2018-11-22] MEDS ORDERED: PROMETHAZINE HCL INJ 25 MG/1 ML VIAL IV PRN (14:15)
[2018-11-22] MEDS ORDERED: HYDRALAZINE HCL INJ/PF 20 MG/1 ML SDV IV PRN (14:26)
[2018-11-22] MEDS: DEXTROSE 5%-NORMAL SALINE 1,000 ML IV PRN (14:55)
[2018-11-22] MEDS ORDERED: MAGNESIUM SULFATE/D5W 1 GM/100 ML RTUPB IV ONE (15:30)
[2018-11-22 15:44] LABS: APPEARANCE,URINE CLEAR; BILIRUBIN,URINE NEGATIVE (NEGATIVE); COLOR,URINE YELLOW; GLUCOSE, URINE NEGATIVE (NEGATIVE); KETONES,URINE NEGATIVE (NEGATIVE); LEUKOCYTE ESTERASE,URINE NEGATIVE (NEGATIVE); NITRITE,URINE NEGATIVE (NEGATIVE); PROTEIN,URINE NEGATIVE (NEGATIVE); URINE SPECIFIC GRAVITY 1.006; UROBILINOGEN,URINE NEGATIVE mg/dL (<2.0)
--- NOTE | 2018-11-22 15:47 | EKG REPORT ---
SEVERITY:- OTHERWISE NORMAL ECG - SINUS TACHYCARDIA : Confirmed by: Rory Valadez MD 22-Nov-2018 15:47:00
--- NOTE | 2018-11-22 15:58 | RADIOLOGY REPORT (SQ) ---
EXAM DESCRIPTION: U/S ABDOMEN LTD W/DOPPLER COMPLETED DATE/TIME: 11/22/2018 3:42 pm REASON FOR STUDY: RUQ tenderness COMPARISON: 03/26/2018 TECHNIQUE: Dynamic and static grayscale images acquired of the abdomen and recorded on PACS. Additio jose enrique selected color Doppler and spectral images recorded. LIMITATIONS: Limited visualization. Poor acoustical window FINDINGS: PANCREAS: Not visualized. LIVER: Enlarged, 23 cm. Sub capsular nodularity. No focal masses. LIVER VASCULATURE: Normal directional flow of the main portal vein and hepatic veins. GALLBLADDER: No stones. Normal wall thickness. No pericholecystic fluid. ULTRASOUND-DETECTED GUAMAN'S SIGN: Negative. INTRAHEPATIC DUCTS AND COMMON DUCT: CBD and intrahepatic ducts normal caliber. No filling defects. INFERIOR VENA CAVA: Normal flow. AORTA: No aneurysm. RIGHT KIDNEY: Normal size. Normal echogenicity. No solid or suspicious masses. No hydronephros is. No calcifications. PERITONEAL AND RIGHT PLEURAL SPACE: No ascites or effusions. OTHER: No other significant findings. IMPRESSION: Hepatomegaly. Cirrhosis. No ascites. TECHNICAL DOCUMENTATION: JOB ID: [id number] [employer]- All Rights Reserved Reading location - IP/workstation name: [email or web address]
--- NOTE | 2018-11-22 16:14 | PDOC H&P ---
History of Present Illness Admission Date/PCP: 11/22/18 14:03 History of Present Illness: RABMO MARTINEZ is a 33 year old male has medical history of heavy EtOH abuse x17 years (last drink 6 AM taday) , DTs with multiple hospitalizations, EtOH induced cirrhosis, tobacco abuse, IV drug abuse (including heroin, last use 3 days ago), chronic recurrent alcoholic pancreatitis presenting to ED complaining of worsening chronic persistent epi-gastric abdominal pain x3 days, 5/5, sharp, nonradiating associated with nausea and nonbloody non-bilious vomiting and bloating. He is stating he cannot tolerate any food except for alcohol. Last alcohol intake 6 AM today. He still passing flatus and having normal bowel movements, complaining of being anxious and tremulous. Denies any fever, s hortness of breath, chills, headache, vision changes, weakness, visual or auditory hallucinations or formication. In ED he is found to be tachycardic, tremulous, with elevated alcohol level and low magnesium level. Abdominal ultrasound negative for acute acute changes. Lipase level 172. Note: Patient is not does not have any kids. Would like for her mother Fela Martinez to be contacted in case he cannot make his own medical decision. Phone #[phone]. Past Medical History Cardiac Medical History: Reports: Hyperlipidema, Hypertension Pulmonary Medical History: Reports: Bronchitis Neurological Medical History: Denies: Seizures GI Medical History: Reports: Cirrhosis, Hepatitis - Hepatitis-C Musculoskeltal Medical History: Reports: Arthritis, Gout Psychiatric Medical History: Reports: Bipolar Disorder, Depression, Post Traumatic Stress Disorder Past Surgical History Past Surgical History: Reports: Orthopedic Surgery - R hand Social History Smoking Status: Current Every Day Smoker Frequency of Alcohol Use: Heavy - 12 pack Hx Recreational Drug Use: Yes Drugs: Heroin, Marijuana, Other Hx Prescription Drug Abuse: Yes Family History Family History: Reviewed & Not Pertinent, CAD, CVA, Hyperlipidemia, Hypertension, Malignancy, Thyroid Disfunction Parental Family History Reviewed: Yes Children Family History Reviewed: Yes Sibling(s) Family History Reviewed.: Yes Medication/Allergy Home Medications: No Home Medications 11/22/18 Allergies/Adverse Reactions: carisoprodol [From Soma] Allergy (Verified 11/22/18 11:58) Sulfa (Sulfonamide Antibiotics) Allergy (Verified 11/22/18 11:58) Review of Systems Review of Systems: as per hpi Physical Exam Vital Signs: Temp Pulse Resp BP Pulse Ox 98.2 F 114 H 16 140/82 H 95 11/22/18 15:54 11/22/18 15:54 11/22/18 15:54 11/22/18 15:54 11/22/18 15:54 Intake & Output 11/21/18 11/22/18 11/23/18 06:59 06:59 06:59 Intake Total 1999 Balance 1999 Weight 85.1 kg General appearance: PRESENT: no acute distress, cooperative, disheveled, mild distress, well-developed, well-nourished Head exam: PRESENT: atraumatic, normocephalic Respiratory exam: PRESENT: clear to auscultation jason. ABSENT: rales, rhonchi, wheezes Cardiovascular exam: PRESENT: RRR, tachycardia. ABSENT: diastolic murmur, rubs, systolic murmur Pulses: PRESENT: normal dorsalis pedis pul GI/Abdominal exam: PRESENT: distended, normal bowel sounds, tenderness Extremities exam: PRESENT: full ROM. ABSENT: calf tenderness, clubbing, pedal edema Neurological exam: PRESENT: alert, awake, oriented to person, oriented to place, oriented to time, oriented to situation, CN II-XII grossly intact. ABSENT: motor sensory deficit Psychiatric exam: PRESENT: anxious Skin exam: PRESENT: dry, intact, warm. ABSENT: cyanosis, rash Results Laboratory Results: 11/22/18 12:50 11/22/18 12:50 11/22/18 11/22/18 11/22/18 12:50 12:50 12:50 WBC 9.9 RBC 4.38 Hgb 14.2 Hct 41.1 MCV 94 MCH 32.3 MCHC 34.4 RDW 16.0 H Plt Count 177 Seg Neutrophils % 81.3 H Lymphocytes % 14.1 Monocytes % 3.2 Eosinophils % 0.2 Basophils % 1.2 Absolute Neutrophils 8.1 Absolute Lymphocytes 1.4 Absolute Monocytes 0.3 Absolute Eosinophils 0.0 Absolute Basophils 0.1 Sodium 142.6 Potassium 3.8 Chloride 101 Carbon Dioxide 25 Anion Gap 17 BUN < 2 L Creatinine 0.63 Est GFR ( Amer) > 60 Est GFR (Non-Af Amer) > 60 Glucose 104 Calcium 9.1 Magnesium 1.1 L* Total Bilirubin 2.2 H AST 107 H ALT 9 L Alkaline Phosphatase 463 H Total Protein 9.2 H Albumin 3.9 Lipase 117.4 Urine Color Urine Appearance Urine pH Ur Specific [place] Urine Protein Urine Glucose (UA) Urine Ketones Urine Blood Urine Nitrite Ur Leukocyte Esterase Urine WBC (Auto) 11/22/18 14:49 WBC RBC Hgb Hct MCV MCH MCHC RDW Plt Count Seg Neutrophils % Lymphocytes % Monocytes % Eosinophils % Basophils % Absolute Neutrophils Absolute Lymphocytes Absolute Monocytes Absolute Eosinophils Absolute Basophils Sodium Potassium Chloride Carbon Dioxide Anion Gap BUN Creatinine Est GFR ( Amer) Est GFR (Non-Af Amer) Glucose Calcium Magnesium Total Bilirubin AST ALT Alkaline Phosphatase Total Protein Albumin Lipase Urine Color YELLOW Urine Appearance CLEAR Urine pH 8.0 Ur Specific [place] 1.006 Urine Protein NEGATIVE Urine Glucose (UA) NEGATIVE Urine Ketones NEGATIVE Urine Blood NEGATIVE Urine Nitrite NEGATIVE Ur Leukocyte Esterase NEGATIVE Urine WBC (Auto) 0 11/22/18 12:50 Troponin I < 0.012 Impressions: Chest X-Ray 11/22/18 12:25 IMPRESSION: NO ACUTE RADIOGRAPHIC FINDING IN THE CHEST. Abdomen Ultrasound 11/22/18 13:38 IMPRESSION: Hepatomegaly. Cirrhosis. No ascites. Assessment and Plan - Diagnosis (1) Alcohol dependence with withdrawal Qualifiers: Complication of substance-induced condition: with unspecified complication Qualified Code(s): F10.239 - Alcohol dependence with withdrawal, unspecified Is this a current diagnosis for this admission?: Yes Plan: CIWA-Ar Scale 17. EtOH level 178. History of DTs and severe withdrawals. Admit to IMCU, D5W NS, banana bag, p.o. folic acid, thiamine, multivitamins, PRN benzos for withdrawal, seizure, fall and aspiration precautions, one-to-one, Haldol as needed for agitation. (2) Cirrhosis Qualifiers: Hepatic cirrhosis type: alcoholic cirrhosis Is this a current diagnosis for this admission?: No Plan: Due to EtOH abuse. Visible asterixis. Not encephalopathic. Alert oriented x4. Platelets 177, direct bili 1.6, total bilirubin 2.2, AST 107, ALT 9, alkaline phosphatase 463, albumin 3.9. Pending ammonia level. Monitor for hepatic encephalopathy and bleeding. Lactulose as needed, titrate to have 3 soft BM q24hr. Propranolol for variceal bleeding prophylaxis. Not being followed by loom starter. Outpatient gastroenterology follow- up. (3) Chronic pancreatitis Qualifiers: Pancreatitis type: alcohol induced Qualified Code(s): K86.0 - Alcohol- induced chronic pancreatitis Is this a current diagnosis for this admission?: No Plan: Continue supportive measures. (4) Polysubstance abuse Is this a current diagnosis for this admission?: No Plan: Endorses history of polysubstance IV abuse including heroin. Last use 3 days ago. UDS pending. PRN opiates for withdrawal. Monitor for withdrawals. (5) Hypomagnesemia Is this a current diagnosis for this admission?: No Plan: Due to GI losses. Replace as needed. Magnesium level tomorrow. Continue supplemental oxygen.
[2018-11-22] MEDS: LORAZEPAM INJ 2 MG/1 ML VIAL IV PRN ×2 (16:15→19:41)
[2018-11-22 16:33] LABS: URINE AMPHETAMINES SCREEN NEGATIVE; URINE BARBITURATES SCREEN NEGATIVE; URINE BENZODIAZEPINES SCREEN NEGATIVE; URINE COCAINE SCREEN NEGATIVE; URINE MARIJUANA (THC) SCREEN NEGATIVE; URINE METHADONE SCREEN NEGATIVE; URINE PHENCYCLIDINE SCREEN NEGATIVE
[2018-11-22] MEDS: MORPHINE SULFATE 10 MG/ML INJ IV PRN ×2 (16:52→19:53)
[2018-11-22] MEDS ORDERED: LACTULOSE SYRUP 20 GM/30 ML UDCUP PO PRN (17:38)
[2018-11-22] MEDS: HALOPERIDOL LACTATE INJ 5 MG/1 ML VIAL IV PRN (17:56)
[2018-11-22] MEDS: PROPRANOLOL HCL 10 MG TABLET PO SCH ×2 (17:56→22:28)
[2018-11-22] MEDS: NORMAL SALINE 1000 ML 1,000 ML with POTASSIUM CHLORIDE 20 MEQ, MAGNESIUM SULFATE 8 MEQ,... IV SCH ×5 (17:57)
[2018-11-22] MEDS: MAGNESIUM OXIDE 400 MG TABLET PO SCH (17:57)
[2018-11-22] MEDS: HEPARIN SOD (PORCINE) 5,000 UNIT/ML 1 ML SYRINGE SUBCUT SCH (22:19)
[2018-11-22] MEDS: LORAZEPAM INJ 2 MG/1 ML VIAL IV SCH (22:28)
[2018-11-22] MEDS: PANTOPRAZOLE SODIUM 40 MG VIAL IV SCH (22:28)
[2018-11-23] MEDS: LORAZEPAM INJ 2 MG/1 ML VIAL IV PRN ×7 (00:43→20:05)
[2018-11-23] MEDS: MORPHINE SULFATE 10 MG/ML INJ IV PRN ×6 (00:46→20:06)
[2018-11-23] MEDS: HEPARIN SOD (PORCINE) 5,000 UNIT/ML 1 ML SYRINGE SUBCUT SCH ×4 (05:01→21:17)
[2018-11-23] MEDS: LORAZEPAM INJ 2 MG/1 ML VIAL IV SCH ×3 (05:08→22:34)
[2018-11-23] MEDS: PROPRANOLOL HCL 10 MG TABLET PO SCH ×3 (05:09→22:35)
[2018-11-23 05:22] LABS: INTERNATIONAL RATION (INR) 1.22; PROTHROMBIN TIME 16.1 SEC (11.4-15.4)
[2018-11-23 05:40] LABS: ANION GAP 8 (5-19); BLOOD UREA NITROGEN 3 mg/dL (7-20); CALCIUM 7.8 mg/dL (8.4-10.2); CARBON DIOXIDE 23 mmol/L (22-30); CHLORIDE 106 mmol/L (98-107); GLUCOSE 83 mg/dL (75-110); POTASSIUM 4.4 mmol/L (3.6-5.0); SODIUM 137.4 mmol/L (137-145)
[2018-11-23] MEDS ORDERED: MAGNESIUM SULFATE/D5W 1 GM/100 ML RTUPB IV ONE (07:43)
[2018-11-23] MEDS ORDERED: CALCIUM GLUCONATE 1000 MG/10 ML INJ IV ONE ×3 (07:43→11:30)
[2018-11-23 07:54] LABS: ABSOLUTE EOSINOPHILS # (AUTO) 0.1 10^3/uL (0.0-0.6); ABSOLUTE LYMPHOCYTES (AUTO) 1.7 10^3/uL (0.5-4.7); ABSOLUTE MONOCYTES (AUTO) 0.3 10^3/uL (0.1-1.4); ABSOLUTE NEUT (AUTO) 2.5 10^3/uL (1.7-8.2); EOSINOPHILS % (AUTO) 1.1 % (0-6); HEMATOCRIT 32.2 % (37.9-51.0); LYMPHOCYTES % (AUTO) 36.7 % (13-45); MEAN CORPUSCULAR HGB CONC 33.9 g/dL (32.0-36.0); MEAN CORPUSCULAR VOLUME 95 fl (80-97); MONOCYTES % (AUTO) 6.4 % (3-13); RED BLOOD COUNT 3.41 10^6/uL (4.35-5.55); RED CELL DISTRIBUTION WIDTH 16.2 % (11.5-14.0); SEGMENTED NEUTROPHILS % (AUTO) 54.8 % (42-78); TOTAL CELLS COUNTED % (AUTO) 100 %; WHITE BLOOD COUNT 4.6 10^3/uL (4.0-10.5)
[2018-11-23] MEDS: LACTULOSE SYRUP 20 GM/30 ML UDCUP PO SCH ×3 (08:26→22:35)
[2018-11-23 08:29] LABS: HEMOGLOBIN 10.9 g/dL (13.5-17.0); PLATELET COUNT 97 10^3/uL (150-450)
[2018-11-23] MEDS: MAGNESIUM OXIDE 400 MG TABLET PO SCH ×2 (11:19→17:48)
[2018-11-23] MEDS: DOCUSATE SODIUM 100 MG CAPSULE PO SCH (11:20)
[2018-11-23] MEDS: PANTOPRAZOLE SODIUM 40 MG VIAL IV SCH ×2 (11:21→22:35)
[2018-11-23] MEDS ORDERED: ONDANSETRON HCL INJ/PF 4 MG/2 ML SDV IV PRN (13:30)
[2018-11-23] MEDS ORDERED: PROMETHAZINE HCL INJ 25 MG/1 ML VIAL IV PRN (13:30)
--- NOTE | 2018-11-23 13:42 | PDOC PROGRESS REPORT ---
Subjective Progress Note for:: 11/23/18 Subjective:: RAMBO MARTINEZ is a 33 year old male has medical history of heavy EtOH abuse x17 years (last drink 6 AM taday) , DTs with multiple hospitalizations, EtOH induced cirrhosis, tobacco abuse, IV drug abuse (including heroin, last use 3 days ago), chronic recurrent alcoholic pancreatitis presenting to ED complaining of worsening chronic persistent epi-gastric abdominal pain x3 days, 5/5, sharp, nonradiating associated with nausea and nonbloody non-bilious vomiting and bloating. He is stating he cannot tolerate any food except for alcohol. Last alcohol intake 6 AM today. He still passing flatus and having normal bowel movements, complaining of being anxious and tremulous. Denies any fever, shortness of breath, chills, headache, vision changes, weakness, visual or auditory hallucinations or formication. In ED he is found to be tachycardic, tremulous, with elevated alcohol level and low magnesium level. Abdominal ultrasound negative for acute acute changes. Lipase level 172. Note: Patient is not does not have any kids. Would like for her mother Fela Martinez to be contacted in case he cannot make his own medical decision. Phone #[phone]. 11/23/2018. No acute events overnight. Patient is stating that she still feels very anxious and tremulous, having persistent abdominal pain, passing flatus and having bowel movement, denies any auditory or visual hallucinations. Denies any fever, chills, nausea, vomiting, diarrhea, constipation or any urinary symptoms. Reason For Visit: ETOH W/L Physical Exam Vital Signs: Temp Pulse Resp BP Pulse Ox 98.3 F 89 17 121/79 96 11/23/18 11:57 11/23/18 11:57 11/23/18 11:57 11/23/18 11:57 11/23/18 11:57 Intake & Output 11/22/18 11/23/18 11/24/18 06:59 06:59 06:59 Intake Total 3951 Balance 3951 Weight 89.2 kg General appearance: PRESENT: no acute distress, well-developed, well-nourished Head exam: PRESENT: atraumatic, normocephalic Neck exam: ABSENT: carotid bruit, JVD, lymphadenopathy, thyromegaly Respiratory exam: PRESENT: clear to auscultation jason. ABSENT: rales, rhonchi, wheezes Cardiovascular exam: PRESENT: RRR. ABSENT: diastolic murmur, rubs, systolic murmur GI/Abdominal exam: PRESENT: normal bowel sounds, soft. ABSENT: distended, guarding, mass, organolmegaly, rebound, tenderness Extremities exam: PRESENT: full ROM. ABSENT: calf tenderness, clubbing, pedal edema Neurological exam: PRESENT: alert, awake, oriented to person, oriented to place, oriented to time, oriented to situation, CN II-XII grossly intact. ABSENT: motor sensory deficit Psychiatric exam: PRESENT: anxious Results Laboratory Results: 11/23/18 07:31 11/23/18 05:04 11/22/18 11/22/18 11/22/18 12:50 14:49 16:48 WBC RBC Hgb Hct MCV MCH MCHC RDW Plt Count Seg Neutrophils % Lymphocytes % Monocytes % Eosinophils % Basophils % Absolute Neutrophils Absolute Lymphocytes Absolute Monocytes Absolute Eosinophils Absolute Basophils Sodium Potassium Chloride Carbon Dioxide Anion Gap BUN Creatinine Est GFR ( Amer) Est GFR (Non-Af Amer) Glucose Calcium Magnesium 1.1 L* Ammonia 24.1 Urine Color YELLOW Urine Appearance CLEAR Urine pH 8.0 Ur Specific [place] 1.006 Urine Protein NEGATIVE Urine Glucose (UA) NEGATIVE Urine Ketones NEGATIVE Urine Blood NEGATIVE Urine Nitrite NEGATIVE Ur Leukocyte Esterase NEGATIVE Urine WBC (Auto) 0 11/23/18 11/23/18 11/23/18 05:04 05:04 05:04 WBC Cancelled RBC Cancelled Hgb Cancelled Hct Cancelled MCV Cancelled MCH Cancelled MCHC Cancelled RDW Cancelled Plt Count Cancelled Seg Neutrophils % Cancelled Lymphocytes % Cancelled Monocytes % Cancelled Eosinophils % Cancelled Basophils % Cancelled Absolute Neutrophils Cancelled Absolute Lymphocytes Cancelled Absolute Monocytes Cancelled Absolute Eosinophils Cancelled Absolute Basophils Cancelled Sodium 137.4 Potassium 4.4 Chloride 106 Carbon Dioxide 23 Anion Gap 8 BUN 3 L Creatinine 0.61 Est GFR ( Amer) > 60 Est GFR (Non-Af Amer) > 60 Glucose 83 Calcium 7.8 L Magnesium 1.5 L Ammonia 40.7 H Urine Color Urine Appearance Urine pH Ur Specific [place] Urine Protein Urine Glucose (UA) Urine Ketones Urine Blood Urine Nitrite Ur Leukocyte Esterase Urine WBC (Auto) 11/23/18 07:31 WBC 4.6 RBC 3.41 L Hgb 10.9 L D Hct 32.2 L MCV 95 MCH 32.0 MCHC 33.9 RDW 16.2 H Plt Count 97 L Seg Neutrophils % 54.8 Lymphocytes % 36.7 Monocytes % 6.4 Eosinophils % 1.1 Basophils % 1.0 Absolute Neutrophils 2.5 Absolute Lymphocytes 1.7 Absolute Monocytes 0.3 Absolute Eosinophils 0.1 Absolute Basophils 0.0 Sodium Potassium Chloride Carbon Dioxide Anion Gap BUN Creatinine Est GFR ( Amer) Est GFR (Non-Af Amer) Glucose Calcium Magnesium Ammonia Urine Color Urine Appearance Urine pH Ur Specific [place] Urine Protein Urine Glucose (UA) Urine Ketones Urine Blood Urine Nitrite Ur Leukocyte Esterase Urine WBC (Auto) 11/22/18 12:50 Troponin I < 0.012 Impressions: Chest X-Ray 11/22/18 12:25 IMPRESSION: NO ACUTE RADIOGRAPHIC FINDING IN THE CHEST. Abdomen Ultrasound 11/22/18 13:38 IMPRESSION: Hepatomegaly. Cirrhosis. No ascites. Assessment and Plan - Diagnosis (1) Alcohol dependence with withdrawal Qualifiers: Complication of substance-induced condition: with unspecified complication Qualified Code(s): F10.239 - Alcohol dependence with withdrawal, unspecified Is this a current diagnosis for this admission?: Yes Plan: Improving. CIWA-Ar Scale 10. EtOH level 178. History of DTs and severe withdrawals. Admit to IMCU, D5W NS, banana bag, p.o. folic acid, thiamine, multivitamins, PRN benzos for withdrawal, seizure, fall and aspiration precautions, one-to-one, Haldol as needed for agitation. (2) Cirrhosis Qualifiers: Hepatic cirrhosis type: alcoholic cirrhosis Is this a current diagnosis for this admission?: No Plan: Due to EtOH abuse. Visible asterixis. Not encephalopathic. Alert oriented x4. Platelets 177, direct bili 1.6, total bilirubin 2.2, AST 107, ALT 9, alkaline phosphatase 463, albumin 3.9. Ammonia level trending up to 40. Monitor for hepatic encephalopathy and bleeding. Lactulose 3 times daily titrate to have 3 soft BM q24hr. Propranolol for variceal bleeding prophylaxis. Not being followed by adjunct art history instructor. Outpatient gastroenterology follow- up. (3) Chronic pancreatitis Qualifiers: Pancreatitis type: alcohol induced Qualified Code(s): K86.0 - Alcohol- induced chronic pancreatitis Is this a current diagnosis for this admission?: No Plan: Continue supportive measures. (4) Polysubstance abuse Is this a current diagnosis for this admission?: No Plan: Endorses history of polysubstance IV abuse including heroin. Last use 3 days ago. UDS positive for opiates. PRN opiates for withdrawal. Monitor for withdrawals. (5) Hypomagnesemia Is this a current diagnosis for this admission?: No Plan: Replaced. Due to GI losses. Replace as needed. Magnesium level tomorrow. Continue supplemental magnesium.
[2018-11-23] MEDS: DEXTROSE 5%-NORMAL SALINE 1,000 ML IV PRN (15:50)
[2018-11-23] MEDS: NORMAL SALINE 1000 ML 1,000 ML with POTASSIUM CHLORIDE 20 MEQ, MAGNESIUM SULFATE 8 MEQ,... IV SCH ×5 (17:48)
[2018-11-23] MEDS: NICOTINE 21 MG/24 HR PATCH.TD24 TD SCH (22:34)
[2018-11-24] MEDS: MORPHINE SULFATE 10 MG/ML INJ IV PRN ×7 (00:38→20:57)
[2018-11-24] MEDS: LORAZEPAM INJ 2 MG/1 ML VIAL IV PRN ×7 (00:39→23:56)
[2018-11-24] MEDS: LACTULOSE SYRUP 20 GM/30 ML UDCUP PO SCH ×3 (05:51→21:58)
[2018-11-24] MEDS: LORAZEPAM INJ 2 MG/1 ML VIAL IV SCH ×3 (05:52→21:58)
[2018-11-24] MEDS: HEPARIN SOD (PORCINE) 5,000 UNIT/ML 1 ML SYRINGE SUBCUT SCH ×3 (05:52→22:00)
[2018-11-24] MEDS: PROPRANOLOL HCL 10 MG TABLET PO SCH ×3 (05:52→21:59)
[2018-11-24 06:30] LABS: ABSOLUTE LYMPHOCYTES (AUTO) 1.2 10^3/uL (0.5-4.7); ABSOLUTE MONOCYTES (AUTO) 0.2 10^3/uL (0.1-1.4); ABSOLUTE NEUT (AUTO) 2.6 10^3/uL (1.7-8.2); BASOPHILS % (AUTO) 0.7 % (0-2); HEMOGLOBIN 10.9 g/dL (13.5-17.0); LYMPHOCYTES % (AUTO) 29.6 % (13-45); MEAN CORPUSCULAR HEMOGLOBIN 32.2 pg (27.0-33.4); MEAN CORPUSCULAR HGB CONC 34.2 g/dL (32.0-36.0); MEAN CORPUSCULAR VOLUME 94 fl (80-97); MONOCYTES % (AUTO) 5.7 % (3-13); RED BLOOD COUNT 3.39 10^6/uL (4.35-5.55); RED CELL DISTRIBUTION WIDTH 15.9 % (11.5-14.0); TOTAL CELLS COUNTED % (AUTO) 100 %; WHITE BLOOD COUNT 4.1 10^3/uL (4.0-10.5)
[2018-11-24 06:52] LABS: PLATELET COUNT 87 10^3/uL (150-450)
[2018-11-24 07:06] LABS: ALANINE AMINOTRANSFERASE 14 U/L (21-72); ALKALINE PHOSPHATASE 349 U/L (38-126); ANION GAP 9 (5-19); ASPARTATE AMINO TRANSFERASE 78 U/L (17-59); BILIRUBIN,DIRECT 2.1 mg/dL (0.0-0.4); BILIRUBIN,TOTAL 2.9 mg/dL (0.2-1.3); CALCIUM 8.6 mg/dL (8.4-10.2); CARBON DIOXIDE 22 mmol/L (22-30); CHLORIDE 107 mmol/L (98-107); GLUCOSE 88 mg/dL (75-110); POTASSIUM 4.4 mmol/L (3.6-5.0); SODIUM 138.3 mmol/L (137-145); TOTAL PROTEIN 7.3 g/dL (6.3-8.2)
[2018-11-24 07:07] LABS: BLOOD UREA NITROGEN < 2 mg/dL (7-20)
[2018-11-24] MEDS: DOCUSATE SODIUM 100 MG CAPSULE PO SCH (09:40)
[2018-11-24] MEDS: PANTOPRAZOLE SODIUM 40 MG VIAL IV SCH ×2 (09:54→22:08)
[2018-11-24] MEDS: MAGNESIUM OXIDE 400 MG TABLET PO SCH ×2 (10:11→19:15)
[2018-11-24] MEDS: HALOPERIDOL LACTATE INJ 5 MG/1 ML VIAL IV PRN (12:43)
--- NOTE | 2018-11-24 14:05 | RADIOLOGY REPORT (SQ) ---
EXAM DESCRIPTION: CT ABD/PELVIS WITH IV ORAL COMPLETED DATE/TIME: 11/24/2018 1:47 pm REASON FOR STUDY: intractable abdominal pain COMPARISON: 10/27/2018, 11/03/2015 TECHNIQUE: CT scan of the abdomen and pelvis performed using helical scanning technique with dynamic intravenous contrast injection. No oral contrast. Images reviewed with lung, soft tissue, and bone windows. Reconstructed coronal and sagittal MPR images reviewed. Delayed images for evaluation of the urinary system also acquired. All images stored on PACS. All CT scanners at this facility use dose modulation, iterative reconstruction, and/or weight based d osing when appropriate to reduce radiation dose to as low as reasonably achievable (ALARA). [facility]: Dose Right [facility]: CareDose [facility]: Dose Right [facility]: Teradose 4D [facility]: Syncing.Net CONTRAST TYPE AND DOSE: 100 mL Isovue 370- low osmolar. RENAL FUNCTION: BUN 2, creatinine 0.63 RADIATION DOSE: CT Rad equipment meets quality standard of care and radiation dose reduction techniq ues were employed. CTDIvol: 9.7 - 11.2 mGy. DLP: 1249 mGy-cm.. LIMITATIONS: None. FINDINGS: LOWER CHEST: No significant findings. No nodules or infiltrates. LIVER: There is hepatomegaly. There is heterogeneous enhancement. On delayed images the liver appea rs homogeneous in appearance. No focal masses. SPLEEN: There is splenomegaly. PANCREAS: No masses. No significant calcifications. No adjacent inflammation or peripancreatic fluid collections. Pancreatic duct not dilated. GALLBLADDER: No identified stones by CT criteria. No inflammatory changes to suggest cholecystitis. ADRENAL GLANDS: No significant masses or asymmetry. RIGHT KIDNEY AND URETER: No solid masses. No significant calcifications. No hydronephrosis or hyd roureter. LEFT KIDNEY AND URETER: No solid masses. No significant calcifications. No hydronephrosis or hydr oureter. AORTA AND VESSELS: No aneurysm. No dissection. Renal arteries, SMA, celiac without stenosis. RETROPERITONEUM: Numerous small retroperitoneal lymph nodes are again noted and unchanged from prior study. BOWEL AND PERITONEAL CAVITY: No masses or inflammatory changes. No free fluid or peritoneal masses. There are scattered diverticuli. No acute diverticulitis. APPENDIX: Normal. PELVIS: No mass. No free fluid. Normal bladder. ABDOMINAL WALL: No masses. No hernias. BONES: No significant or acute findings. OTHER: No other significant finding. IMPRESSION: 1. Stable hepatosplenomegaly. Findings are nonspecific but include infectious or inflam matory process, lymphoma or leukemia. 2. Scattered small periaortic lymph nodes which are unchanged from prior study. These are nonspecif ic as well. TECHNICAL DOCUMENTATION: JOB ID: [id number] Quality ID # [id number]: Final reports with documentation of one or more dose reduction techniques (e.g., Au tomated exposure control, adjustment of the mA and/or kV according to patient size, use of iterative reconstruction technique) 2010 [employer]- All Rights Reserved Reading location - IP/workstation name: [facility] [place]-
--- NOTE | 2018-11-24 15:50 | PDOC PROGRESS REPORT ---
Subjective Progress Note for:: 11/24/18 Subjective:: No adverse events overnight. Has looked a bit tremulous at times today but was not symptomatic whenever I saw him this morning. He was still complaining of some abdominal pain but was not having any more nausea or vomiting. Complaining of his belly feeling swollen but when he was initially presenting to the ER abdominal ultrasound was done and did not show any ascites. Reason For Visit: ETOH W/L Physical Exam Vital Signs: Temp Pulse Resp BP Pulse Ox 97.4 F 87 17 120/89 H 98 11/24/18 11:32 11/24/18 11:32 11/24/18 06:49 11/24/18 11:32 11/24/18 11:32 Intake & Output 11/23/18 11/24/18 11/25/18 06:59 06:59 06:59 Intake Total 4951 2293 250 Balance 4951 2293 250 Weight 89.2 kg 92.5 kg General appearance: PRESENT: no acute distress, cooperative, disheveled, obese Teeth exam: PRESENT: poor dentation Respiratory exam: PRESENT: clear to auscultation jason, symmetrical, unlabored. ABSENT: accessory muscle use, crackles, prolonged expiratory phas, rhonchi, tachypnea, wheezes Cardiovascular exam: PRESENT: RRR, +S1, +S2 Pulses: PRESENT: normal carotid pulses Vascular exam: PRESENT: normal capillary refill GI/Abdominal exam: PRESENT: distended, normal bowel sounds, soft. ABSENT: guarding, rebound, tenderness Extremities exam: ABSENT: clubbing, pedal edema Musculoskeletal exam: PRESENT: normal inspection. ABSENT: deformity Neurological exam: PRESENT: alert, awake, oriented to person, oriented to place, oriented to situation Psychiatric exam: PRESENT: flat affect Skin exam: PRESENT: dry, warm Results Laboratory Results: 11/24/18 05:17 11/24/18 05:17 11/24/18 11/24/18 05:17 05:17 WBC 4.1 RBC 3.39 L Hgb 10.9 L Hct 32.0 L MCV 94 MCH 32.2 MCHC 34.2 RDW 15.9 H Plt Count 87 L Seg Neutrophils % 63.0 Lymphocytes % 29.6 Monocytes % 5.7 Eosinophils % 1.0 Basophils % 0.7 Absolute Neutrophils 2.6 Absolute Lymphocytes 1.2 Absolute Monocytes 0.2 Absolute Eosinophils 0.0 Absolute Basophils 0.0 Sodium 138.3 Potassium 4.4 Chloride 107 Carbon Dioxide 22 Anion Gap 9 BUN < 2 L Creatinine 0.63 Est GFR ( Amer) > 60 Est GFR (Non-Af Amer) > 60 Glucose 88 Calcium 8.6 Magnesium 1.5 L Total Bilirubin 2.9 H AST 78 H ALT 14 L Alkaline Phosphatase 349 H Total Protein 7.3 Albumin 3.0 L 11/22/18 12:50 Troponin I < 0.012 Impressions: Chest X-Ray 11/22/18 12:25 IMPRESSION: NO ACUTE RADIOGRAPHIC FINDING IN THE CHEST. Abdomen Ultrasound 11/22/18 13:38 IMPRESSION: Hepatomegaly. Cirrhosis. No ascites. Abdomen/Pelvis CT 11/24/18 00:00 IMPRESSION: 1. Stable hepatosplenomegaly. Findings are nonspecific but include infectious or inflammatory process, lymphoma or leukemia. 2. Scattered small periaortic lymph nodes which are unchanged from prior study. These are nonspecific as well. Assessment and Plan - Diagnosis (1) Alcohol withdrawal Qualifiers: Complication of substance-induced condition: uncomplicated Qualified Code(s): F10.230 - Alcohol dependence with withdrawal, uncomplicated Is this a current diagnosis for this admission?: Yes Plan: He is getting as needed medication. Apparently he does not have any plans to quit drinking, as I am told he was arguing with his mother because she would not give him any money to go by some alcohol. (2) Abdominal pain Qualifiers: Abdominal location: right upper quadrant Qualified Code(s): R10.11 - Right upper quadrant pain Is this a current diagnosis for this admission?: Yes Plan: CT scan did not show any new evidence of any cause for abdominal pain. Shows his persistent hepatosplenomegaly that has had for quite some time, as a result of his cirrhosis and hepatitis C. (3) Polysubstance abuse Is this a current diagnosis for this admission?: Yes Plan: He admits to most recently using IV heroin. Monitoring for signs of withdrawal. - Time Time Spent with patient: 15-24 minutes - Plan Summary Plan Summary: His liver panel has improved, and if he continues to trend down tomorrow we will likely send him home.
[2018-11-24] MEDS: NORMAL SALINE 1000 ML 1,000 ML with POTASSIUM CHLORIDE 20 MEQ, MAGNESIUM SULFATE 8 MEQ,... IV SCH ×5 (19:15)
[2018-11-24] MEDS: NICOTINE 21 MG/24 HR PATCH.TD24 TD SCH (21:59)
[2018-11-25] MEDS: HALOPERIDOL LACTATE INJ 5 MG/1 ML VIAL IV PRN (00:59)
[2018-11-25] MEDS: DEXTROSE 5%-NORMAL SALINE 1,000 ML IV PRN (01:03)
[2018-11-25] MEDS: LORAZEPAM INJ 2 MG/1 ML VIAL IV PRN (03:25)
[2018-11-25 04:08] VITALS: BP 121/73
[2018-11-25] MEDS: MORPHINE SULFATE 10 MG/ML INJ IV PRN (04:15)
[2018-11-25] MEDS: PROPRANOLOL HCL 10 MG TABLET PO SCH (05:12)
[2018-11-25] MEDS: LACTULOSE SYRUP 20 GM/30 ML UDCUP PO SCH (05:12)
[2018-11-25] MEDS: HEPARIN SOD (PORCINE) 5,000 UNIT/ML 1 ML SYRINGE SUBCUT SCH (05:13)
[2018-11-25 05:29] LABS: ABSOLUTE LYMPHOCYTES (AUTO) 0.9 10^3/uL (0.5-4.7); ABSOLUTE MONOCYTES (AUTO) 0.2 10^3/uL (0.1-1.4); ABSOLUTE NEUT (AUTO) 2.6 10^3/uL (1.7-8.2); BASOPHILS % (AUTO) 0.9 % (0-2); EOSINOPHILS % (AUTO) 1.1 % (0-6); HEMATOCRIT 32.5 % (37.9-51.0); HEMOGLOBIN 11.1 g/dL (13.5-17.0); LYMPHOCYTES % (AUTO) 24.5 % (13-45); MEAN CORPUSCULAR HEMOGLOBIN 32.4 pg (27.0-33.4); MEAN CORPUSCULAR HGB CONC 34.1 g/dL (32.0-36.0); MEAN CORPUSCULAR VOLUME 95 fl (80-97); MONOCYTES % (AUTO) 4.8 % (3-13); RED BLOOD COUNT 3.42 10^6/uL (4.35-5.55); RED CELL DISTRIBUTION WIDTH 15.6 % (11.5-14.0); SEGMENTED NEUTROPHILS % (AUTO) 68.7 % (42-78); TOTAL CELLS COUNTED % (AUTO) 100 %; WHITE BLOOD COUNT 3.8 10^3/uL (4.0-10.5)
[2018-11-25 05:48] LABS: PLATELET COUNT 97 10^3/uL (150-450)
[2018-11-25 05:50] LABS: ANION GAP 12 (5-19); CALCIUM 8.6 mg/dL (8.4-10.2); CARBON DIOXIDE 19 mmol/L (22-30); CHLORIDE 108 mmol/L (98-107); GLUCOSE 93 mg/dL (75-110); POTASSIUM 4.2 mmol/L (3.6-5.0); SODIUM 138.9 mmol/L (137-145)
[2018-11-25 05:51] LABS: BLOOD UREA NITROGEN < 2 mg/dL (7-20)
[2018-11-25] MEDS: LORAZEPAM INJ 2 MG/1 ML VIAL IV SCH (05:55)
--- NOTE | 2018-11-25 15:35 | Left Against Medical Advice ---
Against Medical Advice Admission Date/Time: 11/22/18 14:03 Primary Care Provider: Date of Patient Emigration: 11/25/18 - Diagnosis: (1) Alcohol withdrawal Is this a current diagnosis for this admission?: Yes (2) Abdominal pain Is this a current diagnosis for this admission?: Yes (3) Polysubstance abuse Is this a current diagnosis for this admission?: Yes - Summary: Summary: Please see Admission and Progress Notes as well. RAMBO MARTINEZ is a 33 M, who LEFT AGAINST MEDICAL ADVICE. The Patient was admitted on 11/22/18 14:03.
== END 2018-11-25 07:43 | disposition left against medical advice (07) | DRG 894 ==
LOC: ER 11:52 → EH 14:03 → 3S 15:54
PROVIDERS: ADMIT Internal Medicine; ATTEND Internal Medicine
DX: F10.239 Alcohol dependence with withdrawal, unspecified (principal); K86.0 Alcohol-induced chronic pancreatitis; E83.42 Hypomagnesemia; F10.229 Alcohol dependence with intoxication, unspecified; K70.30 Alcoholic cirrhosis of liver without ascites; F19.10 Other psychoactive substance abuse, uncomplicated; F17.210 Nicotine dependence, cigarettes, uncomplicated; Y90.6 Blood alcohol level of 120-199 mg/100 ml
CPT/HCPCS: 36415; 71046; 74177; 76705; 80048; 80053; 80307; 81001; 82140; 83690; 83735; 84484; 85025; 85610; 93005; 93010; 93976; 96361; 96374; 96375; 99285; J0610; J1630; J1644; J2060; J2270; J2405; J3411; J3475; J3480; J3490; J7030; J7042; S0164

== ENCOUNTER 2018-11-26 22:18 | Emergency (ER) | payer OTHER ==
[2018-11-26] MEDS ORDERED: LIDOCAINE 1%/EPINEPHRINE INJ 20 ML VIAL INJ ONE (23:22)
[2018-11-26] MEDS ORDERED: KETOROLAC TROMETHAMINE INJ/PF 30 MG/1 ML SDV IV ONE (23:22)
[2018-11-26] MEDS ORDERED: DIPH/PERTUSS(ACELL)/TETANUS VAC/PF 0.5 ML SYR (>=10YO) IM ONE (23:22)
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
--- NOTE | 2018-11-27 00:05 | RADIOLOGY REPORT (SQ) ---
EXAM DESCRIPTION: XR ELBOW 1-2 VIEWS COMPLETED DATE/TME: 11/26/2018 23:21 CLINICAL HISTORY: 33 years, Male, trauma COMPARISON: None. NUMBER OF VIEWS: 2 TECHNIQUE: 2 view right elbow LIMITATIONS: None. FINDINGS: Negative for fracture or dislocation. Soft tissues are unremarkable IMPRESSION: Negative exam copyright 2010 [employer]- All Rights Reserved
--- NOTE | 2018-11-27 00:07 | RADIOLOGY REPORT (SQ) ---
EXAM DESCRIPTION: XR FOREARM 2 VIEWS COMPLETED DATE/TME: 11/26/2018 23:21 CLINICAL HISTORY: 33 years, Male, trauma COMPARISON: None. NUMBER OF VIEWS: 2 TECHNIQUE: 2 view right forearm LIMITATIONS: None. FINDINGS: Negative for fracture or dislocation. Soft tissues are unremarkable IMPRESSION: Negative exam copyright 2011 [employer]- All Rights Reserved
--- NOTE | 2018-11-27 00:48 | RADIOLOGY REPORT (SQ) ---
EXAM DESCRIPTION: XR WRIST 3 OR MORE VIEWS BILATERAL COMPLETED DATE/TME: 11/26/2018 23:21 CLINICAL HISTORY: 33 years, Male, trauma COMPARISON: None. NUMBER OF VIEWS: 2 images of the right wrist TECHNIQUE: 2 images of the right wrist LIMITATIONS: Lucency on the volar aspect of the lunate bone on the lateral view has no corresponding abnormality on other view and is likely artifactual. No convincing evidence for an acute fracture or dislocation. Postsurgical changes of the fourth and fifth metacarpals. Soft tissues are unremarkable FINDINGS: Probable artifact associated with the volar aspect of the lunate bone on the lateral view. Correlate with site of pain. If warranted, a follow-up exam in 10-14 days could be performed IMPRESSION: copyright 2010 [employer]- All Rights Reserved
[2018-11-27] MEDS ORDERED: KETOROLAC TROMETHAMINE INJ/PF 30 MG/1 ML SDV IV ONE (01:07)
[2018-11-27 01:13] VITALS: BP 114/81
--- NOTE | 2018-11-27 06:39 | EKG REPORT ---
SEVERITY:- BORDERLINE ECG - SINUS RHYTHM NONSPECIFIC ST-T CHANGES- INFERIOR LEADS : Confirmed by: Rory Valadez MD 27-Nov-2018 06:38:42
== END 2018-11-27 01:13 | disposition home or self-care (01) ==
LOC: ER 22:18
DX: S41.111A Laceration without foreign body of right upper arm, initial encounter (principal); S01.311A Laceration without foreign body of right ear, initial encounter; V67.6XXA Passenger in heavy transport vehicle injured in collision with fixed or stationary object in traffic accident, initial encounter; F17.200 Nicotine dependence, unspecified, uncomplicated; I10 Essential (primary) hypertension; Z23 Encounter for immunization; Z88.2 Allergy status to sulfonamides; Z88.8 Allergy status to other drugs, medicaments and biological substances
CPT/HCPCS: 93005; 99284; 90471; 96374; 73070; 73090; 73110; 90715; 93010; 12002; J3490; J1885

== ENCOUNTER 2018-11-28 13:54 | Emergency (ER) | payer OTHER ==
[2018-11-28 14:03] VITALS: BP 136/82
[2018-11-28 14:41] LABS: ABSOLUTE BASOPHILS # (AUTO) 0.1 10^3/uL (0.0-0.2); ABSOLUTE LYMPHOCYTES (AUTO) 1.3 10^3/uL (0.5-4.7); ABSOLUTE MONOCYTES (AUTO) 0.3 10^3/uL (0.1-1.4); ABSOLUTE NEUT (AUTO) 3.9 10^3/uL (1.7-8.2); BASOPHILS % (AUTO) 1.3 % (0-2); EOSINOPHILS % (AUTO) 0.5 % (0-6); HEMATOCRIT 38.1 % (37.9-51.0); LYMPHOCYTES % (AUTO) 23.7 % (13-45); MEAN CORPUSCULAR HEMOGLOBIN 32.6 pg (27.0-33.4); MEAN CORPUSCULAR VOLUME 96 fl (80-97); MONOCYTES % (AUTO) 5.6 % (3-13); PLATELET COUNT 171 10^3/uL (150-450); RED BLOOD COUNT 3.98 10^6/uL (4.35-5.55); RED CELL DISTRIBUTION WIDTH 16.5 % (11.5-14.0); SEGMENTED NEUTROPHILS % (AUTO) 68.9 % (42-78); TOTAL CELLS COUNTED % (AUTO) 100 %; WHITE BLOOD COUNT 5.6 10^3/uL (4.0-10.5)
[2018-11-28 15:00] LABS: APPEARANCE,URINE CLEAR; BILIRUBIN,URINE NEGATIVE (NEGATIVE); COLOR,URINE YELLOW; GLUCOSE, URINE NEGATIVE (NEGATIVE); KETONES,URINE NEGATIVE (NEGATIVE); LEUKOCYTE ESTERASE,URINE NEGATIVE (NEGATIVE); NITRITE,URINE NEGATIVE (NEGATIVE); PROTEIN,URINE NEGATIVE (NEGATIVE); URINE SPECIFIC GRAVITY 1.008; UROBILINOGEN,URINE NEGATIVE mg/dL (<2.0)
[2018-11-28 15:02] LABS: ALANINE AMINOTRANSFERASE 17 U/L (21-72); ALBUMIN 4.2 g/dL (3.5-5.0); ALCOHOL 117 mg/dL (NONE DETECTED); ALKALINE PHOSPHATASE 364 U/L (38-126); ANION GAP 15 (5-19); ASPARTATE AMINO TRANSFERASE 112 U/L (17-59); BILIRUBIN,DIRECT 1.6 mg/dL (0.0-0.4); BILIRUBIN,TOTAL 2.1 mg/dL (0.2-1.3); BLOOD UREA NITROGEN 4 mg/dL (7-20); CALCIUM 9.7 mg/dL (8.4-10.2); CARBON DIOXIDE 20 mmol/L (22-30); CHLORIDE 107 mmol/L (98-107); GLUCOSE 149 mg/dL (75-110); LIPASE 339.4 U/L (23-300); POTASSIUM 3.5 mmol/L (3.6-5.0); SODIUM 142.2 mmol/L (137-145); TOTAL PROTEIN 9.7 g/dL (6.3-8.2)
[2018-11-28 15:03] LABS: ACETAMINOPHEN < 10 ug/mL (10-30); SALICYLATE < 1.0 mg/dL (2.0-20.0)
[2018-11-28 15:15] LABS: URINE AMPHETAMINES SCREEN NEGATIVE; URINE BARBITURATES SCREEN NEGATIVE; URINE BENZODIAZEPINES SCREEN NEGATIVE; URINE COCAINE SCREEN NEGATIVE; URINE MARIJUANA (THC) SCREEN NEGATIVE; URINE METHADONE SCREEN NEGATIVE; URINE PHENCYCLIDINE SCREEN NEGATIVE
--- NOTE | 2018-11-29 07:52 | EKG REPORT ---
SEVERITY:- BORDERLINE ECG - SINUS TACHYCARDIA BORDERLINE T ABNORMALITIES, ANTERIOR LEADS : Confirmed by: Ching Martin MD 29-Nov-2018 07:51:11
== END 2018-11-28 15:05 | disposition left against medical advice (07) ==
LOC: ER 13:54
DX: Z53.21 Procedure and treatment not carried out due to patient leaving prior to being seen by health care provider (principal)
CPT/HCPCS: 36415; 80053; 80307; 81001; 83690; 85025; 93005; 93010; 99281

== ENCOUNTER 2019-03-03 12:41 | Emergency (ER) | payer SELFPAY ==
--- NOTE | 2019-03-03 12:57 | ER Document Report ---
ED Medical Screen (RME) - General Chief Complaint: Medical Clearance Stated Complaint: POSSIBLE DETOX/EVAL Time Seen by Provider: 03/03/19 12:52 Mode of Arrival: Ambulatory Information source: Patient Notes: This 33-year-old male presents to the emergency department with history of EtOH abuse since he was 13 years old and heroin abuse since he was 25 years old for medical clearance for detox. He reports he contacted mobile crisis they told him to come here to get cleared to go to [facility]. Patient denies suicidal or homicidal ideations. He reports he last used heroin yesterday and drank EtOH this morning. I have greeted and performed a rapid initial assessment of this patient. A comprehensive ED assessment and evaluation of the patient, analysis of test results and completion of the medical decision making process will be conducted by additional ED providers. Dictation of this chart was performed using voice recognition software; therefore, there may be some unintended grammatical errors.. TRAVEL OUTSIDE OF THE [place] IN LAST 30 DAYS: No - Related Data Allergies/Adverse Reactions: carisoprodol [From Soma] Allergy (Verified 03/03/19 12:55) Sulfa (Sulfonamide Antibiotics) Allergy (Verified 03/03/19 12:55) Past Medical History - Social History Chew tobacco use (# tins/day): No Frequency of alcohol use: Heavy, Over a fifth of liquor a day, last drink this morning Drug Abuse: Heroin - Past Medical History Cardiac Medical History: Reports: Hx Hypercholesterolemia, Hx Hypertension Pulmonary Medical History: Reports: Hx Bronchitis Neurological Medical History: Reports: Hx Cerebrovascular Accident - States he has had a TIA. Denies: Hx Seizures Renal/ Medical History: Denies: Hx Peritoneal Dialysis GI Medical History: Reports: Hx Cirrhosis, Hx Gastritis, Hx Hepatitis - Hepatitis-C, Hx Ulcer, Hx Endoscopy Musculoskeltal Medical History: Reports Hx Arthritis, Reports Hx Gout, Reports Hx Musculoskeletal Deformity, Reports Hx Musculoskeletal Trauma Psychiatric Medical History: Reports: Hx Anxiety, Hx Bipolar Disorder, Hx Depression, Hx Post Traumatic Stress Disorder Traumatic Medical History: Reports: Hx Fractures - Right hand Infectious Medical History: Reports: Hx Hepatitis - Hepatitis-C Past Surgical History: Reports: Hx Orthopedic Surgery - R hand - Immunizations Immunizations up to date: Yes Hx Diphtheria, Pertussis, Tetanus Vaccination: Yes History of Influenza Vaccine for 03/2017 - 08/2017 Season: Refused Physical Exam - Vital signs Vitals: Temp Pulse Resp BP Pulse Ox 97.9 F 92 16 120/76 98 03/03/19 12:47 03/03/19 12:47 03/03/19 12:47 03/03/19 12:47 03/03/19 12:47 Course - Vital Signs Vital signs: Temp Pulse Resp BP Pulse Ox 97.9 F 92 16 120/76 98 03/03/19 12:47 03/03/19 12:47 03/03/19 12:47 03/03/19 12:47 03/03/19 12:47
[2019-03-03 14:15] LABS: ABSOLUTE EOSINOPHILS # (AUTO) 0.1 10^3/uL (0.0-0.6); ABSOLUTE LYMPHOCYTES (AUTO) 2.1 10^3/uL (0.5-4.7); ABSOLUTE MONOCYTES (AUTO) 0.4 10^3/uL (0.1-1.4); ABSOLUTE NEUT (AUTO) 3.8 10^3/uL (1.7-8.2); BASOPHILS % (AUTO) 0.7 % (0-2); EOSINOPHILS % (AUTO) 1.2 % (0-6); HEMATOCRIT 34.8 % (37.9-51.0); HEMOGLOBIN 11.6 g/dL (13.5-17.0); LYMPHOCYTES % (AUTO) 32.4 % (13-45); MEAN CORPUSCULAR HEMOGLOBIN 29.5 pg (27.0-33.4); MEAN CORPUSCULAR HGB CONC 33.3 g/dL (32.0-36.0); MEAN CORPUSCULAR VOLUME 89 fl (80-97); MONOCYTES % (AUTO) 5.6 % (3-13); PLATELET COUNT 158 10^3/uL (150-450); RED BLOOD COUNT 3.93 10^6/uL (4.35-5.55); RED CELL DISTRIBUTION WIDTH 16.7 % (11.5-14.0); SEGMENTED NEUTROPHILS % (AUTO) 60.1 % (42-78); TOTAL CELLS COUNTED % (AUTO) 100 %; WHITE BLOOD COUNT 6.4 10^3/uL (4.0-10.5)
[2019-03-03 14:17] LABS: APPEARANCE,URINE CLEAR; BILIRUBIN,URINE NEGATIVE (NEGATIVE); COLOR,URINE YELLOW; GLUCOSE, URINE NEGATIVE (NEGATIVE); KETONES,URINE NEGATIVE (NEGATIVE); LEUKOCYTE ESTERASE,URINE NEGATIVE (NEGATIVE); NITRITE,URINE NEGATIVE (NEGATIVE); PROTEIN,URINE NEGATIVE (NEGATIVE); URINE SPECIFIC GRAVITY 1.004; UROBILINOGEN,URINE NEGATIVE mg/dL (<2.0)
[2019-03-03 14:32] LABS: URINE AMPHETAMINES SCREEN NEGATIVE; URINE BARBITURATES SCREEN NEGATIVE; URINE BENZODIAZEPINES SCREEN UNCONFIRMED POSITIVE; URINE COCAINE SCREEN NEGATIVE; URINE MARIJUANA (THC) SCREEN NEGATIVE; URINE METHADONE SCREEN NEGATIVE; URINE PHENCYCLIDINE SCREEN NEGATIVE
[2019-03-03 14:37] LABS: ALBUMIN 3.7 g/dL (3.5-5.0); ALCOHOL 87 mg/dL (NONE DETECTED); ALKALINE PHOSPHATASE 507 U/L (38-126); ANION GAP 13 (5-19); ASPARTATE AMINO TRANSFERASE 47 U/L (17-59); BILIRUBIN,TOTAL 1.6 mg/dL (0.2-1.3); BLOOD UREA NITROGEN 3 mg/dL (7-20); CARBON DIOXIDE 23 mmol/L (22-30); CHLORIDE 103 mmol/L (98-107); GLUCOSE 87 mg/dL (75-110); POTASSIUM 3.7 mmol/L (3.6-5.0); TOTAL PROTEIN 8.1 g/dL (6.3-8.2)
[2019-03-03 14:45] LABS: ACETAMINOPHEN < 10 ug/mL (10-30); SALICYLATE < 1.0 mg/dL (2.0-20.0)
--- NOTE | 2019-03-03 15:19 | ER Document Report ---
ED General - General Chief Complaint: Medical Clearance Stated Complaint: POSSIBLE DETOX/EVAL Time Seen by Provider: 03/03/19 12:52 Mode of Arrival: Ambulatory TRAVEL OUTSIDE OF THE [place] IN LAST 30 DAYS: No - HPI Notes: 33-year-old male with history of polysubstance abuse, hepatic encephalopathy, alcohol induced liver disease to the emergency department for medical clearance that he can go to [facility] for alcohol and drug detox. He states that he has been using alcohol and drugs for some time. He has been using alcohol nearly daily since he was 17. He states that he started to use IV heroin and he last used approximately 2 days ago. He states that he has been in contact with the mobile crisis unit and they are getting him a bed at [facility]. He was sent to the emergency department for medical clearance. He denies any suicidal thoughts, homicidal thoughts, hallucinations. He is never had a seizure with alcohol withdrawal. He states that he has been drinking in the past 24 hours but is not sure how much. He states that it is "just a little". Denies any other complaints such as chest pain, nausea vomiting, tremors, shortness of breath, abdominal pain. - Related Data Allergies/Adverse Reactions: carisoprodol [From Soma] Allergy (Verified 03/03/19 12:55) Sulfa (Sulfonamide Antibiotics) Allergy (Verified 03/03/19 12:55) Past Medical History - General Information source: Patient - Social History Smoking Status: Current Every Day Smoker Chew tobacco use (# tins/day): No Frequency of alcohol use: Heavy, Over a fifth of liquor a day, last drink this m orning Drug Abuse: Heroin Lives with: Family Family History: Reviewed & Not Pertinent, CAD, CVA, Hyperlipidemia, Hypertension , Malignancy, Thyroid Disfunction Patient has suicidal ideation: No Patient has homicidal ideation: No - Past Medical History Cardiac Medical History: Reports: Hx Hypercholesterolemia, Hx Hypertension Pulmonary Medical History: Reports: Hx Bronchitis Neurological Medical History: Reports: Hx Cerebrovascular Accident - States he has had a TIA. Denies: Hx Seizures Renal/ Medical History: Denies: Hx Peritoneal Dialysis GI Medical History: Reports: Hx Cirrhosis, Hx Gastritis, Hx Hepatitis - Hepatitis-C, Hx Ulcer, Hx Endoscopy Musculoskeletal Medical History: Reports Hx Arthritis, Reports Hx Gout, Reports Hx Musculoskeletal Deformity, Reports Hx Musculoskeletal Trauma Psychiatric Medical History: Reports: Hx Anxiety, Hx Bipolar Disorder, Hx Depression, Hx Post Traumatic Stress Disorder Traumatic Medical History: Reports: Hx Fractures - Right hand Infectious Medical History: Reports: Hx Hepatitis - Hepatitis-C Past Surgical History: Reports: Hx Orthopedic Surgery - R hand - Immunizations Immunizations up to date: Yes Hx Diphtheria, Pertussis, Tetanus Vaccination: Yes Review of Systems - Review of Systems Constitutional: denies: Chills, Fever EENT: No symptoms reported Cardiovascular: denies: Chest pain, Palpitations, Heart racing, Orthopnea, Dyspnea, Syncope, Dizziness, Lightheaded, Edema Respiratory: denies: Cough, Short of breath Gastrointestinal: denies: Abdominal pain, Diarrhea, Nausea, Vomiting Genitourinary: No symptoms reported Musculoskeletal: No symptoms reported Skin: No symptoms reported Neurological/Psychological: No symptoms reported -: Yes All other systems reviewed and negative Physical Exam - Vital signs Vitals: Temp Pulse Resp BP Pulse Ox 97.9 F 92 16 120/76 98 03/03/19 12:47 03/03/19 12:47 03/03/19 12:47 03/03/19 12:47 03/03/19 12:47 - General General appearance: Appears well, Alert - HEENT Head: Normocephalic, Atraumatic Eyes: Normal Pupils: PERRL - Respiratory Respiratory status: No respiratory distress Chest status: Nontender Breath sounds: Normal Chest palpation: Normal - Cardiovascular Rhythm: Regular Heart sounds: Normal auscultation Murmur: No - Abdominal Inspection: Obese Distension: No distension Bowel sounds: Normal Tenderness: Nontender Organomegaly: No organomegaly - Back Back: Normal, Nontender - Psychological Associated symptoms: Normal affect, Normal mood. No: Confused, Paranoid, Tactile hallucinations, Visual hallucinations - Skin Skin Temperature: Warm Skin Moisture: Dry Skin Color: Normal Course - Re-evaluation Re-evalutation: 03/03/19 Corby from [facility] went and saw patient. She offered placement at [place] but patient declined and would like to go to [facility]. She evaluated him further and agrees that he is not displaying any signs of suicidal ideation, homicidal ideation, or hallucinations. She states that he is clear from a psychiatric point of view and once medically clear he can go home with his mom who will stay with him until his placement at [facility]. Impression: Polysubstance abuse. Patient would like to go to [facility] and he is not suicidal or homicidal. He has a good support system at home and his mom. Mobile crisis is involved in his case and is awaiting placement at [facility]. I have encouraged him to return if any worsening symptoms such as SI, HI, hallucinations, tremors that are uncontrollable, seizures, intractable vomiting or any other complaints. Mom and patient agree with the plan. Noted alk phos that is elevated as well as alcohol level of 87. Patient appears clinically sober and mom bedside who is willing to assume responsibility of patient. Noted positive toxicology for opioids which is consistent with patient's use of heroin. Will discharge and have him follow-up for further detox with [facility] as planned. - Vital Signs Vital signs: Temp Pulse Resp BP Pulse Ox 97.9 F 92 16 120/76 98 03/03/19 12:47 03/03/19 12:47 03/03/19 12:47 03/03/19 12:47 03/03/19 12:47 - Laboratory Result Diagrams: 03/03/19 14:00 03/03/19 14:00 Laboratory results interpreted by me: 03/03/19 03/03/19 14:00 14:00 RBC 3.93 L Hgb 11.6 L Hct 34.8 L RDW 16.7 H BUN 3 L Total Bilirubin 1.6 H Direct Bilirubin 1.0 H Alkaline Phosphatase 507 H Salicylates < 1.0 L Acetaminophen < 10 L Discharge - Discharge Clinical Impression: Alcohol abuse, Heroin abuse, Polysubstance abuse, Elevated alkaline phosphatase level Condition: Stable Disposition: HOME, SELF-CARE Instructions: Chronic Alcoholism ([facility]) Additional Instructions: FOLLOW UP WITH [facility] PLANNED FOR PLACEMENT FOR DETOX FROM POLYSUBSTANCES. RETURN IMMEDIATELY IF ANY WORSENING SYMPTOMS SUCH INTRACTABLE VOMITING, FEVERS, CHILLS, CHEST PAIN, SHORTNESS OF BREATH, SEIZURES, ALTERED MENTAL STATUS.
[2019-03-03 15:54] VITALS: BP 119/79
--- NOTE | 2019-03-03 22:08 | EKG REPORT ---
SEVERITY:- NORMAL ECG - SINUS RHYTHM : Confirmed by: Rory Valadez MD 03-Mar-2019 22:07:41
== END 2019-03-03 14:50 | disposition home or self-care (01) ==
LOC: ER 12:41
DX: F10.10 Alcohol abuse, uncomplicated (principal); Y90.4 Blood alcohol level of 80-99 mg/100 ml; F11.10 Opioid abuse, uncomplicated; R74.8 Abnormal levels of other serum enzymes; F17.200 Nicotine dependence, unspecified, uncomplicated; I10 Essential (primary) hypertension; Z88.8 Allergy status to other drugs, medicaments and biological substances; Z88.2 Allergy status to sulfonamides
CPT/HCPCS: 36415; 80053; 80307; 81001; 85025; 93005; 93010; 99283

== ENCOUNTER 2019-04-18 15:17 | Observation (INO) | payer OTHER ==
[2019-04-18] MEDS ORDERED: NORMAL SALINE IV ONE (15:32)
[2019-04-18] MEDS ORDERED: ONDANSETRON HCL INJ/PF 4 MG/2 ML SDV IV ONE (15:33)
--- NOTE | 2019-04-18 15:36 | ER Document Report ---
ED Medical Screen (RME) - General Chief Complaint: Fever Stated Complaint: FEVER Time Seen by Provider: 04/18/19 15:31 Mode of Arrival: Ambulatory Information source: Patient Notes: Patient presents complaining of fever and abdominal pain for the past 3 days. Patient reports nausea vomiting diarrhea. Patient does report a history of alcoholism and heroin use with hep C, pancreatitis and cirrhosis. Patient does report recent sick contacts. Patient also reports recent dental extraction performed last week. I have greeted and performed a rapid initial assessment of this patient. A com prehensive ED assessment and evaluation of the patient, analysis of test results and completion of the medical decision making process will be conducted by additional ED providers. TRAVEL OUTSIDE OF THE [place] IN LAST 30 DAYS: No - Related Data Allergies/Adverse Reactions: carisoprodol [From Soma] Allergy (Verified 03/03/19 12:55) Sulfa (Sulfonamide Antibiotics) Allergy (Verified 03/03/19 12:55) Past Medical History - Past Medical History Cardiac Medical History: Reports: Hx Hypercholesterolemia, Hx Hypertension Pulmonary Medical History: Reports: Hx Bronchitis Neurological Medical History: Reports: Hx Cerebrovascular Accident - States he has had a TIA. Denies: Hx Seizures Renal/ Medical History: Denies: Hx Peritoneal Dialysis GI Medical History: Reports: Hx Cirrhosis, Hx Gastritis, Hx Hepatitis - Hepatitis-C, Hx Ulcer, Hx Endoscopy Musculoskeltal Medical History: Reports Hx Arthritis, Reports Hx Gout, Reports Hx Musculoskeletal Deformity, Reports Hx Musculoskeletal Trauma Psychiatric Medical History: Reports: Hx Anxiety, Hx Bipolar Disorder, Hx Depression, Hx Post Traumatic Stress Disorder Traumatic Medical History: Reports: Hx Fractures - Right hand Infectious Medical History: Reports: Hx Hepatitis - Hepatitis-C Past Surgical History: Reports: Hx Orthopedic Surgery - R hand - Immunizations Immunizations up to date: Yes Hx Diphtheria, Pertussis, Tetanus Vaccination: Yes Physical Exam - Vital signs Vitals: Temp Pulse Resp BP Pulse Ox 101.4 F H 147 H 19 107/61 95 04/18/19 15:29 04/18/19 15:29 04/18/19 15:29 04/18/19 15:29 04/18/19 15:29 - Cardiovascular Rhythm: Tachycardia Heart sounds: S1 appreciated, S2 appreciated Course - Vital Signs Vital signs: Temp Pulse Resp BP Pulse Ox 101.4 F H 147 H 19 107/61 95 04/18/19 15:29 04/18/19 15:29 04/18/19 15:29 04/18/19 15:29 04/18/19 15:29
[2019-04-18] MEDS ORDERED: IBUPROFEN 800 MG TABLET PO ONE (15:37)
--- NOTE | 2019-04-18 15:58 | RADIOLOGY REPORT (SQ) ---
EXAM DESCRIPTION: CHEST 2 VIEWS COMPLETED DATE/TIME: 04/18/2019 3:44 pm REASON FOR STUDY: fever COMPARISON: 11/22/2018 EXAM PARAMETERS: NUMBER OF VIEWS: two views TECHNIQUE: Digital Frontal and Lateral radiographic views of the chest acquired. RADIATION DOSE: NA LIMITATIONS: none FINDINGS: LUNGS AND PLEURA: No opacities, masses or pneumothorax. No pleural effusion. MEDIASTINUM AND HILAR STRUCTURES: No masses or contour abnormalities. HEART AND VASCULAR STRUCTURES: Heart normal size. No evidence for failure. BONES: No acute findings. HARDWARE: None in the chest. OTHER: No other significant finding. IMPRESSION: NO ACUTE RADIOGRAPHIC FINDING IN THE CHEST. TECHNICAL DOCUMENTATION: JOB ID: [id number] [employer]- All Rights Reserved Reading location - IP/workstation name: [email or web address]
[2019-04-18 16:45] LABS: ABSOLUTE MONOCYTES (AUTO) 0.5 10^3/uL (0.1-1.4); ABSOLUTE NEUT (AUTO) 12.6 10^3/uL (1.7-8.2); BASOPHILS % (AUTO) 0.3 % (0-2); EOSINOPHILS % (AUTO) 0.1 % (0-6); HEMATOCRIT 35.6 % (37.9-51.0); HEMOGLOBIN 12.4 g/dL (13.5-17.0); LYMPHOCYTES % (AUTO) 7.3 % (13-45); MEAN CORPUSCULAR HEMOGLOBIN 31.7 pg (27.0-33.4); MEAN CORPUSCULAR HGB CONC 34.9 g/dL (32.0-36.0); MEAN CORPUSCULAR VOLUME 91 fl (80-97); MONOCYTES % (AUTO) 3.5 % (3-13); PLATELET COUNT 116 10^3/uL (150-450); RED BLOOD COUNT 3.92 10^6/uL (4.35-5.55); RED CELL DISTRIBUTION WIDTH 16.4 % (11.5-14.0); SEGMENTED NEUTROPHILS % (AUTO) 88.8 % (42-78); TOTAL CELLS COUNTED % (AUTO) 100 %; WHITE BLOOD COUNT 14.1 10^3/uL (4.0-10.5)
[2019-04-18 16:47] LABS: VENOUS BLOOD BASE EXCESS 0.3 mmol/L; VENOUS BLOOD HCO3 21.9 mmol/L (20-32); VENOUS BLOOD PCO2 28.9 mmHg (35-63); VENOUS BLOOD PH 7.5 (7.30-7.42)
[2019-04-18 16:52] LABS: INTERNATIONAL RATION (INR) 1.22; PROTHROMBIN TIME 15.5 SEC (11.4-15.4)
[2019-04-18 17:04] LABS: ALBUMIN 3.8 g/dL (3.5-5.0); ALKALINE PHOSPHATASE 401 U/L (38-126); ASPARTATE AMINO TRANSFERASE 85 U/L (17-59); BILIRUBIN,DIRECT 2.1 mg/dL (0.0-0.4); BLOOD UREA NITROGEN 6 mg/dL (7-20); CALCIUM 8.4 mg/dL (8.4-10.2); GLUCOSE 139 mg/dL (75-110); POTASSIUM 4.6 mmol/L (3.6-5.0); TOTAL PROTEIN 8.6 g/dL (6.3-8.2)
[2019-04-18 17:09] LABS: CARBON DIOXIDE 26 mmol/L (22-30); CHLORIDE 88 mmol/L (98-107)
[2019-04-18 17:12] LABS: ANION GAP 21 (5-19)
[2019-04-18] MEDS ORDERED: CEFTRIAXONE 1 GM/D5W RTU 1 GM/50 ML RTUPB IV ONE (17:14)
--- NOTE | 2019-04-18 19:09 | RADIOLOGY REPORT (SQ) ---
EXAM DESCRIPTION: CT ABD/PELVIS WITH IV ONLY COMPLETED DATE/TIME: 04/18/2019 6:46 pm REASON FOR STUDY: n/v, abd pain, fever COMPARISON: 08/12/2017 TECHNIQUE: CT scan of the abdomen and pelvis performed using helical scanning technique with dynamic intravenous contrast injection. No oral contrast. Images reviewed with lung, soft tissue, and bone windows. Reconstructed coronal and sagittal MPR images reviewed. Delayed images for evaluation of the urinary system also acquired. All images stored on PACS. All CT scanners at this facility use dose modulation, iterative reconstruction, and/or weight based d osing when appropriate to reduce radiation dose to as low as reasonably achievable (ALARA). [facility]: Dose Right [facility]: CareDose [facility]: Dose Right [facility]: Teradose 4D [facility]: [employer] CONTRAST TYPE AND DOSE: contrast/concentration: Isovue 350.00 mg/ml; Total Contrast Delivered: 95.0 ml; Total Saline Delivered: 41.0 ml RENAL FUNCTION: BUN 6 creatinine 0.67 RADIATION DOSE: CT Rad equipment meets quality standard of care and radiation dose reduction techniq ues were employed. CTDIvol: 10.2 - 13.8 mGy. DLP: 1499 mGy-cm.. LIMITATIONS: None. FINDINGS: LOWER CHEST: No significant findings. No nodules or infiltrates. LIVER: The liver is mildly hypoattenuating and slightly heterogeneous. SPLEEN: Splenomegaly is present. PANCREAS: No masses. No significant calcifications. No adjacent inflammation or peripancreatic fluid collections. Pancreatic duct not dilated. GALLBLADDER: No identified stones by CT criteria. No inflammatory changes to suggest cholecystitis. ADRENAL GLANDS: No significant masses or asymmetry. RIGHT KIDNEY AND URETER: No solid masses. No significant calcifications. No hydronephrosis or hyd roureter. LEFT KIDNEY AND URETER: No solid masses. No significant calcifications. No hydronephrosis or hydr oureter. AORTA AND VESSELS: No aneurysm. No dissection. Renal arteries, SMA, celiac without stenosis. RETROPERITONEUM: There are numerous small mesenteric and periaortic nodes. BOWEL AND PERITONEAL CAVITY: No masses or inflammatory changes. No free fluid or peritoneal masses. APPENDIX: Normal. PELVIS: No mass. No free fluid. Normal bladder. ABDOMINAL WALL: No masses. No hernias. BONES: No significant or acute findings. OTHER: No other significant finding. IMPRESSION: 1. The liver is slightly heterogeneous and mildly hypoattenuating. Fatty infiltration versus hepatocellular disease. 2. Splenomegaly. 3. There are numerous small mesenteric and periaortic nodes. Cannot exclude mesenteric adenitis. TECHNICAL DOCUMENTATION: JOB ID: [id number] Quality ID # [id number]: Final reports with documentation of one or more dose reduction techniques (e.g., Au tomated exposure control, adjustment of the mA and/or kV according to patient size, use of iterative reconstruction technique) 2010 [employer]- All Rights Reserved Reading location - IP/workstation name: [email or web address]
[2019-04-18 19:49] LABS: APPEARANCE,URINE CLEAR; BILIRUBIN,URINE NEGATIVE (NEGATIVE); COLOR,URINE YELLOW; GLUCOSE, URINE NEGATIVE (NEGATIVE); KETONES,URINE NEGATIVE (NEGATIVE); PROTEIN,URINE NEGATIVE (NEGATIVE); URINE SPECIFIC GRAVITY 1.029
--- NOTE | 2019-04-18 20:17 | ER Document Report ---
ED Fever - General Chief Complaint: Fever Stated Complaint: FEVER Time Seen by Provider: 04/18/19 15:31 Mode of Arrival: Ambulatory Notes: Patient is a 33-year-old male that comes to the emergency department for chief complaint fever, generalized abdominal pain with vomiting, and some lower back pain for the past 3 days. He has a complicated medical history including hepatitis C, cirrhosis, pancreatitis, and heroin use using the last time 2 days ago. He also has a history of alcohol abuse and withdrawal, states he drank earlier today but admits that he quickly withdraws. He is not on any current medications except gabapentin reportedly. He did have a dental extraction 1 week ago. Mother is at bedside. TRAVEL OUTSIDE OF THE [place] IN LAST 30 DAYS: No - Related Data Allergies/Adverse Reactions: carisoprodol [From Soma] Allergy (Verified 03/03/19 12:55) Sulfa (Sulfonamide Antibiotics) Allergy (Verified 03/03/19 12:55) Past Medical History - General Information source: Patient - Social History Smoking Status: Current Every Day Smoker Frequency of alcohol use: Heavy Drug Abuse: Heroin Lives with: Family Family History: Reviewed & Not Pertinent, CAD, CVA, Hyperlipidemia, Hypertension, Malignancy, Thyroid Disfunction Patient has suicidal ideation: No Patient has homicidal ideation: No - Past Medical History Cardiac Medical History: Reports: Hx Hypercholesterolemia, Hx Hypertension Pulmonary Medical History: Reports: Hx Bronchitis Neurological Medical History: Reports: Hx Cerebrovascular Accident - States he has had a TIA. Denies: Hx Seizures Renal/ Medical History: Denies: Hx Peritoneal Dialysis GI Medical History: Reports: Hx Cirrhosis, Hx Gastritis, Hx Hepatitis - Hepatitis-C, Hx Ulcer, Hx Endoscopy Musculoskeletal Medical History: Reports Hx Arthritis, Reports Hx Gout, Reports Hx Musculoskeletal Deformity, Reports Hx Musculoskeletal Trauma Psychiatric Medical History: Reports: Hx Anxiety, Hx Bipolar Disorder, Hx Depression, Hx Post Traumatic Stress Disorder Traumatic Medical History: Reports: Hx Fractures - Right hand Infectious Medical History: Reports: Hx Hepatitis - Hepatitis-C Past Surgical History: Reports: Hx Orthopedic Surgery - R hand - Immunizations Immunizations up to date: Yes Hx Diphtheria, Pertussis, Tetanus Vaccination: Yes Review of Systems - Review of Systems Constitutional: See HPI EENT: See HPI Cardiovascular: No symptoms reported Respiratory: No symptoms reported Gastrointestinal: See HPI Genitourinary: No symptoms reported Male Genitourinary: No symptoms reported Musculoskeletal: No symptoms reported Skin: No symptoms reported Hematologic/Lymphatic: No symptoms reported Neurological/Psychological: No symptoms reported Physical Exam - Vital signs Vitals: Temp Pulse Resp BP Pulse Ox 101.4 F H 147 H 19 107/61 95 04/18/19 15:29 04/18/19 15:29 04/18/19 15:29 04/18/19 15:29 04/18/19 15:29 - Notes Notes: GENERAL: Alert, interacts well. Very mildly shaky HEAD: Normocephalic, atraumatic. EYES: Pupils equal, round, and reactive to light. Extraocular movements intact. ENT: Oral mucosa moist, tongue midline. Oropharynx unremarkable. Airway patent. Some dental caries. Otherwise unremarkable oral exam. NECK: Full range of motion. Supple. Trachea midline. No nuchal rigidity. LUNGS: Clear to auscultation bilaterally, no wheezes, rales, or rhonchi. No respiratory distress. HEART: Regular rate and rhythm. No murmur ABDOMEN: Soft, non-tender. Non-distended. Bowel sounds present in all 4 quadrants. No guarding or rigidity. GENITOURINARY: Deferred EXTREMITIES: Moves all 4 extremities spontaneously. No edema, normal radial and dorsalis pedis pulses bilaterally. No cyanosis. BACK: no cervical, thoracic, lumbar midline tenderness. No saddle anesthesia, normal distal neurovascular exam. Moves all extremities in full range of motion. NEUROLOGICAL: Alert and oriented x3. Normal speech. Cranial nerves II through XII grossly intact. PSYCH: Slightly restless but cooperative SKIN: Warm, dry, normal turgor. No rashes or lesions noted. Course - Re-evaluation Re-evalutation: Patient actually does not have what appears to be ascites, he has a soft benign abdomen that does not suggest spontaneous bacterial peritonitis. His lungs are clear, he has no nuchal rigidity, he is alert and oriented. He is restless and fidgety, states he feels like he is starting to withdraw already. Patient initially tachycardic in the 140s with fever of one 101.6. No obvious murmur on exam. No chest pain reported. No neurological deficits or severe back pain suggesting epidural abscess but he does admit to mild back pain. CBC shows leukocytosis of 14,000 with elevation of neutrophils but no bandemia. Chemistry shows mild hyponatremia, elevated bilirubin slightly higher than last time but patient has been vomiting a lot reportedly. Lipase unremarkable. LFTs unremarkable. Lactic acid is very elevated at 7.6, blood cultures are pending. Patient has been given Rocephin and IV fluids. Also giving vancomycin. His systolic blood pressure is 101, heart rate is now in the 90s, patient actually is not toxic in appearance at this time. 04/18/19 21:[address] Gamino, internal medicine, requests right upper quadrant ultrasound and continued fluids. Right upper quadrant ultrasound nonspecific, lactate is significantly improved at 2.9, patient with no significant change in vital signs, I did give him a milligram of Ativan because he is starting to get somewhat shaky and has a history of alcohol withdrawal. I spoke again with Dr. Gamino, patient accepted to [facility] full admission. - Vital Signs Vital signs: Temp Pulse Resp BP Pulse Ox 98.4 F 78 16 126/77 H 93 04/19/19 01:38 04/19/19 01:38 04/19/19 01:38 04/19/19 01:38 04/19/19 01:38 - Laboratory Result Diagrams: 04/19/19 03:12 04/19/19 03:12 Laboratory results interpreted by me: 04/18/19 04/18/19 04/18/19 16:26 16:26 16:26 WBC 14.1 H RBC 3.92 L Hgb 12.4 L Hct 35.6 L RDW 16.4 H Plt Count 116 L Lymph % (Auto) 7.3 L Absolute Neuts (auto) 12.6 H Seg Neutrophils % 88.8 H PT APTT VBG pH VBG pCO2 Sodium 134.6 L Chloride 88 L Anion Gap 21 H BUN 6 L Glucose 139 H Lactic Acid 7.6 H Total Bilirubin 3.0 H Direct Bilirubin 2.1 H AST 85 H Alkaline Phosphatase 401 H Ammonia Total Protein 8.6 H Urine Urobilinogen 04/18/19 04/18/19 04/18/19 16:26 16:26 16:26 WBC RBC Hgb Hct RDW Plt Count Lymph % (Auto) Absolute Neuts (auto) Seg Neutrophils % PT 15.5 H APTT 36.0 H VBG pH 7.50 H VBG pCO2 28.9 L Sodium Chloride Anion Gap BUN Glucose Lactic Acid Total Bilirubin Direct Bilirubin AST Alkaline Phosphatase Ammonia 38.5 H Total Protein Urine Urobilinogen 04/18/19 04/18/19 19:25 22:30 WBC RBC Hgb Hct RDW Plt Count Lymph % (Auto) Absolute Neuts (auto) Seg Neutrophils % PT APTT VBG pH VBG pCO2 Sodium Chloride Anion Gap BUN Glucose Lactic Acid 2.9 H Total Bilirubin Direct Bilirubin AST Alkaline Phosphatase Ammonia Total Protein Urine Urobilinogen 2.0 H Discharge - Discharge Clinical Impression: Tachycardia, Heroin abuse Fever Qualifiers: Fever type: unspecified Qualified Code(s): R50.9 - Fever, unspecified Vomiting Qualifiers: Vomiting type: unspecified Vomiting Intractability: unspecified Nausea presence: with nausea Qualified Code(s): R11.2 - Nausea with vomiting, unspecified Abdominal pain Qualifiers: Abdominal location: generalized Qualified Code(s): R10.84 - Generalized abdominal pain Alcohol dependence Qualifiers: Substance use status: unspecified alcohol-induced disorder Qualified Code(s): F10.29 - Alcohol dependence with unspecified alcohol-induced disorder Condition: Fair Disposition: ADMITTED INPATIENT Admitting Provider: Stevenson AlfaroHospitalist) Unit Admitted: [facility]
[2019-04-18] MEDS ORDERED: VANCOMYCIN HCL INJ 1000 MG VIAL IV ONE (21:11)
[2019-04-18] MEDS ORDERED: NORMAL SALINE 1000 ML 1,000 ML IV PRN (21:18)
[2019-04-18] MEDS ORDERED: LORAZEPAM INJ 2 MG/1 ML VIAL IV ONE (21:19)
--- NOTE | 2019-04-18 22:47 | RADIOLOGY REPORT (SQ) ---
EXAM DESCRIPTION: US ABDOMEN LIMITED COMPLETED DATE/TME: 04/18/2019 21:18 CLINICAL HISTORY: 33 years, Male, elevated bilirubin, vomiting COMPARISON: CT abdomen/pelvis performed earlier the same day. TECHNIQUE: Axial 2-D grayscale images of the abdomen were acquired. Doppler was utilized. LIMITATIONS: Limited exam secondary to the patient's inability to lie still FINDINGS: Visualized portions of the pancreas appear normal in echogenicity. Abdominal aortic measurements are as follows: Proximal: 2.0 cm Mid: 2.2 cm Distal: 1.9 cm Liver is diffusely heterogenous in echogenicity. It measures 23.2 cm in length, enlarged. Antegrade flow is documented within the main portal vein. Gallbladder wall thickness measures 4 mm. No gallstones. No pericholecystic free fluid. Sonographic Collazo sign was negative. Common bile duct diameter measures 5 mm. Right kidney measures 13.2 x 4.9 x 5.3 cm in size. No hydronephrosis. No free fluid is identified within the imaged upper abdomen. IMPRESSION: Enlarged, diffusely heterogeneously echogenic liver, nonspecific though potentially indicative of a diffuse hepatocellular disease such as hepatic steatosis. Isolated mild gallbladder wall thickening, nonspecific. copyright 2010 [employer]- All Rights Reserved
[2019-04-18 23:03] LABS: A TYPE INFLUENZA AG NEGATIVE (NEGATIVE); B INFLUENZA AG NEGATIVE (NEGATIVE)
[2019-04-18] MEDS ORDERED: MAG HYDROX/AL HYDROX/SIMETH SUSP 30 ML UDCUP PO PRN (23:41)
[2019-04-18] MEDS ORDERED: PROMETHAZINE HCL 25 MG SUPP.RECT PR PRN (23:41)
[2019-04-18] MEDS ORDERED: ACETAMINOPHEN 325 MG TABLET PO PRN (23:41)
--- NOTE | 2019-04-19 | EKG REPORT ---
SEVERITY:- BORDERLINE ECG - SINUS TACHYCARDIA BORDERLINE PROLONGED QT INTERVAL : Confirmed by: Braden Elias 18-Apr-2019 23:58:53
[2019-04-19] MEDS ORDERED: MORPHINE SULFATE 10 MG/ML INJ IV ONE (00:26)
[2019-04-19] MEDS: NORMAL SALINE 1000 ML 1,000 ML IV SCH ×3 (00:32→07:29)
[2019-04-19] MEDS ORDERED: HALOPERIDOL LACTATE INJ 5 MG/1 ML VIAL IV ONE (01:04)
[2019-04-19] MEDS ORDERED: METRONIDAZOLE 500 MG TABLET PO ONE (01:15)
--- NOTE | 2019-04-19 02:10 | PDOC H&P ---
History of Present Illness Admission Date/PCP: 04/18/19 23:49 Patient complains of: Abdominal pain History of Present Illness: RAMBO MARTINEZ is a 33 year old male with a past medical history of bipolar, hepatitis C, alcoholism, IV drug use and recurrent pancreatitis. He presents with abdominal pain of 24 hours associated with fever vomiting of gastric content and diarrhea. In the emergency room he has a leukocytosis, fever, lactic acidosis and CT suggestive of mesenteric adenitis with a normal gallbladder and appendix. He receives empiric antibiotics and symptomatic management then referred to the hospitalist for admission. Patient in no acute distress without hypotension or tachycardia speaking clearly insisting he is in alcohol withdrawal requesting Ativan and morphine. His last use of IV morphine was 24 hours ago. Past Medical History Cardiac Medical History: Reports: Hyperlipidema, Hypertension Pulmonary Medical History: Reports: Bronchitis Neurological Medical History: Denies: Seizures GI Medical History: Reports: Cirrhosis, Hepatitis - Hepatitis-C Musculoskeltal Medical History: Reports: Arthritis, Gout Psychiatric Medical History: Reports: Alcohol Dependency, Bipolar Disorder, Depression, General Anxiety Disorder, Post Traumatic Stress Disorder, Substance Abuse, Tobacco Dependency Past Surgical History Past Surgical History: Reports: Orthopedic Surgery - R hand Social History Information Source: Patient, [facility] Records Lives with: Family Smoking Status: Current Every Day Smoker Frequency of Alcohol Use: Heavy - 12 pack Hx Recreational Drug Use: Yes Drugs: Heroin, Marijuana, Other Hx Prescription Drug Abuse: Yes - Advance Directive Resuscitation Status: Full Code Family History Family History: CAD, CVA, Hyperlipidemia, Hypertension, Malignancy, Thyroid Disfunction Parental Family History Reviewed: Yes Children Family History Reviewed: Yes Sibling(s) Family History Reviewed.: Yes Medication/Allergy Home Medications: No Home Medications 11/22/18 Allergies/Adverse Reactions: carisoprodol [From Soma] Allergy (Verified 03/03/19 12:55) Sulfa (Sulfonamide Antibiotics) Allergy (Verified 03/03/19 12:55) Review of Systems ROS unobtainable: Due to mental status - Intoxicated Physical Exam Vital Signs: Temp Pulse Resp BP Pulse Ox 98.4 F 78 16 126/77 H 93 04/19/19 01:38 04/19/19 01:38 04/19/19 01:38 04/19/19 01:38 04/19/19 01:38 Intake & Output 04/17/19 04/18/19 04/19/19 11:59 11:59 11:59 Intake Total 2530 Output Total 500 Balance 2030 Weight 82.554 kg General appearance: PRESENT: cooperative, disheveled, mild distress, well- developed, well-nourished Head exam: PRESENT: atraumatic, normocephalic Eye exam: PRESENT: conjunctiva pink, EOMI, PERRLA. ABSENT: scleral icterus Ear exam: PRESENT: normal external ear exam Mouth exam: PRESENT: moist, tongue midline Neck exam: ABSENT: carotid bruit, JVD, lymphadenopathy, thyromegaly Respiratory exam: PRESENT: clear to auscultation jason. ABSENT: rales, rhonchi, wheezes Cardiovascular exam: PRESENT: RRR. ABSENT: diastolic murmur, rubs, systolic murmur Pulses: PRESENT: normal dorsalis pedis pul Vascular exam: PRESENT: normal capillary refill GI/Abdominal exam: PRESENT: ascites, hyperactive bowel sounds, normal bowel sounds, soft, tenderness. ABSENT: diminished bowel sounds, distended, guarding, mass, organolmegaly, rebound, rigid Rectal exam: PRESENT: deferred Extremities exam: PRESENT: full ROM. ABSENT: calf tenderness, clubbing, pedal edema Neurological exam: PRESENT: alert, awake, oriented to person, oriented to place, oriented to time, oriented to situation, CN II-XII grossly intact. ABSENT: motor sensory deficit Psychiatric exam: PRESENT: anxious, unusual affect Skin exam: PRESENT: dry, intact, warm. ABSENT: cyanosis, rash Results Laboratory Results: 04/18/19 16:26 04/18/19 16:26 04/18/19 04/18/19 04/18/19 16:26 16:26 16:26 WBC 14.1 H RBC 3.92 L Hgb 12.4 L Hct 35.6 L MCV 91 MCH 31.7 MCHC 34.9 RDW 16.4 H Plt Count 116 L Seg Neutrophils % 88.8 H VBG pH VBG pCO2 VBG HCO3 VBG Base Excess Sodium 134.6 L Potassium 4.6 Chloride 88 L Carbon Dioxide 26 Anion Gap 21 H BUN 6 L Creatinine 0.67 Est GFR ( Amer) > 60 Glucose 139 H Lactic Acid 7.6 H Calcium 8.4 Total Bilirubin 3.0 H AST 85 H Alkaline Phosphatase 401 H Ammonia Total Protein 8.6 H Albumin 3.8 Lipase 93.7 Urine Color Urine Appearance Urine pH Ur Specific Alderson Urine Protein Urine Glucose (UA) Urine Ketones Urine Blood Urine RBC (Auto) 04/18/19 04/18/19 04/18/19 16:26 16:26 19:25 WBC RBC Hgb Hct MCV MCH MCHC RDW Plt Count Seg Neutrophils % VBG pH 7.50 H VBG pCO2 28.9 L VBG HCO3 21.9 VBG Base Excess 0.3 Sodium Potassium Chloride Carbon Dioxide Anion Gap BUN Creatinine Est GFR ( Amer) Glucose Lactic Acid Calcium Total Bilirubin AST Alkaline Phosphatase Ammonia 38.5 H Total Protein Albumin Lipase Urine Color YELLOW Urine Appearance CLEAR Urine pH 6.0 Ur Specific [place] 1.029 Urine Protein NEGATIVE Urine Glucose (UA) NEGATIVE Urine Ketones NEGATIVE Urine Blood NEGATIVE Urine RBC (Auto) 0 04/18/19 22:30 WBC RBC Hgb Hct MCV MCH MCHC RDW Plt Count Seg Neutrophils % VBG pH VBG pCO2 VBG HCO3 VBG Base Excess Sodium Potassium Chloride Carbon Dioxide Anion Gap BUN Creatinine Est GFR ( Amer) Glucose Lactic Acid 2.9 H Calcium Total Bilirubin AST Alkaline Phosphatase Ammonia Total Protein Albumin Lipase Urine Color Urine Appearance Urine pH Ur Specific Ald[place] Urine Protein Urine Glucose (UA) Urine Ketones Urine Blood Urine RBC (Auto) Impressions: Chest X-Ray 04/18/19 15:32 IMPRESSION: NO ACUTE RADIOGRAPHIC FINDING IN THE CHEST. Abdomen/Pelvis CT 04/18/19 17:17 IMPRESSION: 1. The liver is slightly heterogeneous and mildly hypoattenuating. Fatty infiltration versus hepatocellular disease. 2. Splenomegaly. 3. There are numerous small mesenteric and periaortic nodes. Cannot exclude me senteric adenitis. Abdomen Ultrasound 04/18/19 21:18 IMPRESSION: Enlarged, diffusely heterogeneously echogenic liver, nonspecific though potentially indicative of a diffuse hepatocellular disease such as hepatic steatosis. Isolated mild gallbladder wall thickening, nonspecific. copyright 2011 [employer]- All Rights Reserved Assessment and Plan - Diagnosis (1) Mesenteric adenitis Is this a current diagnosis for this admission?: Yes Plan: Questionable use Yersinia enterocolitis, trial Rocephin, Flagyl, symptomatic management, follow-up chemistry (2) Lactic acidosis Is this a current diagnosis for this admission?: Yes Plan: Secondary to #1 , resolved with fluid resuscitation (3) IV drug user Is this a current diagnosis for this admission?: Yes Plan: Anticipate withdrawal, low-dose opiate PRN, echocardiogram PRN bacteremia or murmur (4) Alcoholic liver disease Is this a current diagnosis for this admission?: Yes Plan: No clear history of DTs, benzodiazepine seeking. Thiamine and folate ordered (5) Bipolar disorder Is this a current diagnosis for this admission?: Yes Plan: Seroquel and Haldol as needed - Time Time Spent with patient: 35 or more minutes - Inpatient Certification Medical Necessity: Need Close Monitoring Due to Risk of Patient Decompensation
[2019-04-19] MEDS: HALOPERIDOL LACTATE INJ 5 MG/1 ML VIAL IV PRN ×2 (02:58→15:01)
[2019-04-19] MEDS ORDERED: GABAPENTIN 100 MG CAPSULE PO ONE (03:00)
[2019-04-19 03:36] LABS: ABSOLUTE LYMPHOCYTES (AUTO) 1.3 10^3/uL (0.5-4.7); ABSOLUTE MONOCYTES (AUTO) 0.4 10^3/uL (0.1-1.4); ABSOLUTE NEUT (AUTO) 3.5 10^3/uL (1.7-8.2); BASOPHILS % (AUTO) 0.5 % (0-2); EOSINOPHILS % (AUTO) 0.9 % (0-6); HEMOGLOBIN 10.6 g/dL (13.5-17.0); LYMPHOCYTES % (AUTO) 24.5 % (13-45); MEAN CORPUSCULAR HEMOGLOBIN 31.8 pg (27.0-33.4); MEAN CORPUSCULAR HGB CONC 35.4 g/dL (32.0-36.0); MEAN CORPUSCULAR VOLUME 90 fl (80-97); MONOCYTES % (AUTO) 7.4 % (3-13); RED BLOOD COUNT 3.34 10^6/uL (4.35-5.55); RED CELL DISTRIBUTION WIDTH 15.8 % (11.5-14.0); SEGMENTED NEUTROPHILS % (AUTO) 66.7 % (42-78); TOTAL CELLS COUNTED % (AUTO) 100 %; WHITE BLOOD COUNT 5.3 10^3/uL (4.0-10.5)
[2019-04-19 03:52] LABS: ALBUMIN 2.7 g/dL (3.5-5.0); ALKALINE PHOSPHATASE 320 U/L (38-126); ANION GAP 9 (5-19); ASPARTATE AMINO TRANSFERASE 48 U/L (17-59); BILIRUBIN,DIRECT 1.5 mg/dL (0.0-0.4); BLOOD UREA NITROGEN 5 mg/dL (7-20); CALCIUM 7.3 mg/dL (8.4-10.2); CARBON DIOXIDE 27 mmol/L (22-30); CHLORIDE 102 mmol/L (98-107); GLUCOSE 98 mg/dL (75-110); PHOSPHORUS 3.4 mg/dL (2.5-4.5); TOTAL PROTEIN 6.5 g/dL (6.3-8.2)
[2019-04-19 03:55] LABS: PLATELET COUNT 59 10^3/uL (150-450)
[2019-04-19 04:10] LABS: POTASSIUM 3.1 mmol/L (3.6-5.0)
[2019-04-19] MEDS: HEPARIN SOD (PORCINE) 5,000 UNIT/ML 1 ML VIAL SUBCUT SCH ×3 (07:26→21:28)
[2019-04-19] MEDS: METRONIDAZOLE 500 MG TABLET PO SCH ×2 (07:27→14:26)
[2019-04-19] MEDS: GABAPENTIN 100 MG CAPSULE PO SCH ×3 (07:28→21:37)
[2019-04-19] MEDS ORDERED: DIAZEPAM 5 MG TABLET PO SCH (10:00)
[2019-04-19] MEDS ORDERED: CEFTRIAXONE 2 GM/D5W RTU 2 GM/50 ML RTUPB IV SCH (10:00)
[2019-04-19] MEDS: THIAMINE HCL 100 MG, FOLIC ACID 1 MG in NORMAL SALINE 250 ML IV SCH (10:00)
[2019-04-19] MEDS ORDERED: INFLUENZA QUAD (6MOS+) 2019-20 VAC 0.5 ML SYR IM ONE (10:00)
[2019-04-19] MEDS: SULFAMETHOXAZOLE/TRIMETHOPRIM 800-160 MG TABLET PO SCH ×2 (14:25→21:38)
--- NOTE | 2019-04-19 16:05 | PDOC PROGRESS REPORT ---
Subjective Progress Note for:: 04/19/19 Subjective:: RAMBO MARTINEZ is a 33 year old male with a past medical history of bipolar, hepatitis C, alcoholism, IV drug use and recurrent pancreatitis who was admitted 04/18/2019 for lactic acidosis secondary to mesenteric adenitis. Patient was seen on morning rounds. He is found ambulating in his room. He is very unhappy with his current pain medication and benzodiazepine plan. Repetitively asks me for increased dosing for management of his withdrawal; then hold his hands out to demonstrate his tremulous behavior. On telemetry he is noted to have a heart rate sustained in the mid 70s to 80s and is normotensive at this time. Patient tells me that he was able to tolerate a clear liquid diet; not interested in advancing at this time. He reports continued diarrhea but denies nausea, vomiting, and increased abdominal pain. He further denies fever, chills, chest pain, palpitations, dyspnea. He has no other questions or concerns at this time. No concerns per nursing. Reason For Visit: SEPSIS MESENTERIC ADENITIS, POLY SUBSTANCE ABUSE Physical Exam Vital Signs: Temp Pulse Resp BP Pulse Ox 97.4 F 85 16 108/73 97 04/19/19 07:34 04/19/19 07:34 04/19/19 07:34 04/19/19 07:34 04/19/19 07:34 Intake & Output 04/18/19 04/19/19 04/20/19 06:59 06:59 06:59 Intake Total 5297 133 Output Total 500 Balance 4797 133 Weight 82.4 kg General appearance: PRESENT: no acute distress, well-developed, well-nourished - overweight Head exam: PRESENT: atraumatic, normocephalic Eye exam: PRESENT: conjunctiva pink, EOMI, PERRLA. ABSENT: scleral icterus Ear exam: PRESENT: normal external ear exam Mouth exam: PRESENT: moist, tongue midline Neck exam: ABSENT: carotid bruit, JVD, lymphadenopathy, thyromegaly Respiratory exam: PRESENT: clear to auscultation jason, symmetrical, unlabored. ABSENT: rales, rhonchi, wheezes Cardiovascular exam: PRESENT: RRR - HR 80s, +S1, +S2. ABSENT: diastolic murmur, rubs, systolic murmur Pulses: PRESENT: normal dorsalis pedis pul Vascular exam: PRESENT: normal capillary refill GI/Abdominal exam: PRESENT: normal bowel sounds, soft, tenderness. ABSENT: distended, guarding, mass, organolmegaly, rebound Rectal exam: PRESENT: deferred Extremities exam: PRESENT: full ROM. ABSENT: calf tenderness, clubbing, pedal edema Neurological exam: PRESENT: alert, awake, oriented to person, oriented to place, oriented to time, oriented to situation, CN II-XII grossly intact, other - tremulous. ABSENT: motor sensory deficit Psychiatric exam: PRESENT: agitated, appropriate affect, normal mood. ABSENT: homicidal ideation, suicidal ideation Skin exam: PRESENT: dry, intact, warm. ABSENT: cyanosis, rash Results Laboratory Results: 04/19/19 03:12 04/19/19 03:12 04/18/19 04/18/19 04/18/19 16:26 16:26 16:26 WBC 14.1 H RBC 3.92 L Hgb 12.4 L Hct 35.6 L MCV 91 MCH 31.7 MCHC 34.9 RDW 16.4 H Plt Count 116 L Seg Neutrophils % 88.8 H VBG pH VBG pCO2 VBG HCO3 VBG Base Excess Sodium 134.6 L Potassium 4.6 Chloride 88 L Carbon Dioxide 26 Anion Gap 21 H BUN 6 L Creatinine 0.67 Est GFR ( Amer) > 60 Glucose 139 H Lactic Acid 7.6 H Calcium 8.4 Phosphorus Magnesium Total Bilirubin 3.0 H AST 85 H Alkaline Phosphatase 401 H Ammonia Total Protein 8.6 H Albumin 3.8 Lipase 93.7 Urine Color Urine Appearance Urine pH Ur Specific [place] Urine Protein Urine Glucose (UA) Urine Ketones Urine Blood Urine RBC (Auto) 04/18/19 04/18/19 04/18/19 16:26 16:26 19:25 WBC RBC Hgb Hct MCV MCH MCHC RDW Plt Count Seg Neutrophils % VBG pH 7.50 H VBG pCO2 28.9 L VBG HCO3 21.9 VBG Base Excess 0.3 Sodium Potassium Chloride Carbon Dioxide Anion Gap BUN Creatinine Est GFR ( Amer) Glucose Lactic Acid Calcium Phosphorus Magnesium Total Bilirubin AST Alkaline Phosphatase Ammonia 38.5 H Total Protein Albumin Lipase Urine Color YELLOW Urine Appearance CLEAR Urine pH 6.0 Ur Specific [place] 1.029 Urine Protein NEGATIVE Urine Glucose (UA) NEGATIVE Urine Ketones NEGATIVE Urine Blood NEGATIVE Urine RBC (Auto) 0 1104/19/19 04/19/19 22:30 03:12 03:12 WBC 5.3 RBC 3.34 L Hgb 10.6 L Hct 30.0 L MCV 90 MCH 31.8 MCHC 35.4 RDW 15.8 H Plt Count 59 L Seg Neutrophils % 66.7 VBG pH VBG pCO2 VBG HCO3 VBG Base Excess Sodium 138.1 Potassium 3.1 L D Chloride 102 Carbon Dioxide 27 Anion Gap 9 BUN 5 L Creatinine 0.54 Est GFR ( Amer) > 60 Glucose 98 Lactic Acid 2.9 H Calcium 7.3 L Phosphorus 3.4 Magnesium 1.5 L Total Bilirubin 2.0 H AST 48 Alkaline Phosphatase 320 H Ammonia Total Protein 6.5 Albumin 2.7 L Lipase Urine Color Urine Appearance Urine pH Ur Specific [place] Urine Protein Urine Glucose (UA) Urine Ketones Urine Blood Urine RBC (Auto) 04/19/19 04/19/19 03:12 13:35 WBC RBC Hgb Hct MCV MCH MCHC RDW Plt Count Seg Neutrophils % VBG pH VBG pCO2 VBG HCO3 VBG Base Excess Sodium Potassium Chloride Carbon Dioxide Anion Gap BUN Creatinine Est GFR ( Amer) Glucose Lactic Acid 2.3 H 3.7 H Calcium Phosphorus Magnesium Total Bilirubin AST Alkaline Phosphatase Ammonia Total Protein Albumin Lipase Urine Color Urine Appearance Urine pH Ur Specific [place] Urine Protein Urine Glucose (UA) Urine Ketones Urine Blood Urine RBC (Auto) Impressions: Chest X-Ray 04/18/19 15:32 IMPRESSION: NO ACUTE RADIOGRAPHIC FINDING IN THE CHEST. Abdomen/Pelvis CT 04/18/19 17:17 IMPRESSION: 1. The liver is slightly heterogeneous and mildly hypoattenuating. Fatty infiltration versus hepatocellular disease. 2. Splenomegaly. 3. There are numerous small mesenteric and periaortic nodes. Cannot exclude mesenteric adenitis. Abdomen Ultrasound 04/18/19 21:18 IMPRESSION: Enlarged, diffusely heterogeneously echogenic liver, nonspecific though potentially indicative of a diffuse hepatocellular disease such as hepatic steatosis. Isolated mild gallbladder wall thickening, nonspecific. copyright 2011 [employer]- All Rights Reserved Assessment and Plan - Diagnosis (1) Mesenteric adenitis Is this a current diagnosis for this admission?: Yes Plan: Noted on CT of the abdomen; typically associated with Yersinia enterocolitis Blood cultures pending. Patient is admitted to [facility] on continuous cardiac telemetry. Will transition to oral Bactrim. Continue on clear liquid diet; advance as tolerated. Analgesics and antiemetics as needed. (2) Abdominal pain Qualifiers: Abdominal location: generalized Qualified Code(s): R10.84 - Generalized abdominal pain Is this a current diagnosis for this admission?: Yes Plan: Secondary to #1. Patient does have a history of alcohol cirrhosis, hepatitis C, and chronic pancreatitis. Meld score 16; 6% 3-month mortality risk. Continue Tylenol as needed. Clear liquid diet; advance slowly as tolerated. Consider Bentyl. Avoid narcotic medications secondary to abuse. (3) Alcohol dependence Qualifiers: Substance use status: unspecified alcohol-induced disorder Qualified Code(s): F10.29 - Alcohol dependence with unspecified alcohol-induced disorder Is this a current diagnosis for this admission?: Yes Plan: Patient was admitted with a serum EtOH of 176. He is provided IV banana bag nightly. He is on scheduled Valium 10 mg every 8 hours. Continue IV Haldol as needed for anxiety/agitation/withdrawal. We will consider additional PRN benzodiazepines if objective signs of withdrawal are present. Otherwise avoid increased dosing secondary to history of abuse. (4) IV drug user Is this a current diagnosis for this admission?: Yes Plan: Cessation recommended. Monitor for evidence of withdrawal. Blood cultures currently pending. (5) Lactic acidosis Is this a current diagnosis for this admission?: Yes Plan: Secondary to #1 , continue IV fluids. Continue to trend. (6) Cirrhosis Qualifiers: Hepatic cirrhosis type: unspecified hepatic cirrhosis Ascites presence: without ascites Qualified Code(s): K74.60 - Unspecified cirrhosis of liver Is this a current diagnosis for this admission?: Yes Plan: Patient does have a history of alcohol cirrhosis, hepatitis C, and chronic pancreatitis. Meld score 16; 6% 3-month mortality risk. LFTs improved today following IV fluid resuscitation. We will continue to monitor chemistries. Remaining management as above. - Time Time Spent with patient: 25-34 minutes Medications reviewed and adjusted accordingly: Yes Anticipated discharge: Home Within: within 48 hours
[2019-04-19] MEDS: NORMAL SALINE 1000 ML 1,000 ML IV PRN (16:49)
[2019-04-19] MEDS: DIAZEPAM 5 MG TABLET PO SCH ×2 (16:49→21:37)
[2019-04-19] MEDS ORDERED: QUETIAPINE FUMARATE 100 MG TABLET PO SCH (22:00)
[2019-04-20] MEDS: NORMAL SALINE 1000 ML 1,000 ML IV PRN ×2 (00:32→06:49)
[2019-04-20] MEDS: HALOPERIDOL LACTATE INJ 5 MG/1 ML VIAL IV PRN (02:23)
[2019-04-20 05:46] LABS: HEMATOCRIT 27.6 % (37.9-51.0); HEMOGLOBIN 9.6 g/dL (13.5-17.0); MEAN CORPUSCULAR HEMOGLOBIN 31.9 pg (27.0-33.4); MEAN CORPUSCULAR HGB CONC 34.8 g/dL (32.0-36.0); MEAN CORPUSCULAR VOLUME 92 fl (80-97); RED BLOOD COUNT 3.01 10^6/uL (4.35-5.55)
[2019-04-20 05:59] LABS: ALBUMIN 2.5 g/dL (3.5-5.0); ALKALINE PHOSPHATASE 290 U/L (38-126); ANION GAP 9 (5-19); ASPARTATE AMINO TRANSFERASE 53 U/L (17-59); BILIRUBIN,DIRECT 1.1 mg/dL (0.0-0.4); BILIRUBIN,TOTAL 1.4 mg/dL (0.2-1.3); BLOOD UREA NITROGEN 3 mg/dL (7-20); CALCIUM 7.4 mg/dL (8.4-10.2); CARBON DIOXIDE 22 mmol/L (22-30); CHLORIDE 114 mmol/L (98-107); GLUCOSE 73 mg/dL (75-110); POTASSIUM 3.1 mmol/L (3.6-5.0); TOTAL PROTEIN 6.2 g/dL (6.3-8.2)
[2019-04-20 06:05] LABS: PLATELET COUNT 64 10^3/uL (150-450); WHITE BLOOD COUNT 2.3 10^3/uL (4.0-10.5)
[2019-04-20] MEDS: DIAZEPAM 5 MG TABLET PO SCH ×2 (06:50→14:29)
[2019-04-20] MEDS: GABAPENTIN 100 MG CAPSULE PO SCH ×2 (06:50→14:30)
[2019-04-20] MEDS: HEPARIN SOD (PORCINE) 5,000 UNIT/ML 1 ML VIAL SUBCUT SCH ×2 (10:14→14:29)
[2019-04-20] MEDS: THIAMINE HCL 100 MG, FOLIC ACID 1 MG in NORMAL SALINE 250 ML IV SCH (10:17)
[2019-04-20] MEDS: SULFAMETHOXAZOLE/TRIMETHOPRIM 800-160 MG TABLET PO SCH (10:17)
[2019-04-20 17:37] VITALS: BP 123/71
--- NOTE | 2019-04-21 16:18 | PDOC DISCHARGE SUMMARY ---
Impression - Admit/DC Date/PCP Admission Date/Primary Care Provider: 04/18/19 23:49 Discharge Date: 04/20/19 - Discharge Diagnosis (1) Mesenteric adenitis Is this a current diagnosis for this admission?: Yes (2) Abdominal pain Is this a current diagnosis for this admission?: Yes (3) Alcohol dependence Is this a current diagnosis for this admission?: Yes (4) IV drug user Is this a current diagnosis for this admission?: Yes (5) Lactic acidosis Is this a current diagnosis for this admission?: Yes (6) Cirrhosis Is this a current diagnosis for this admission?: Yes - Additional Information Resuscitation Status: Full Code Discharge Diet: Regular Discharge Activity: Activity As Tolerated, Balance Activity w/Rest, Slowly Increase Activity Referrals: [facility] [Provider Group] - 05/01/19 3:15 pm Prescriptions: Ciprofloxacin HCl [Cipro 500 mg Tablet] 500 mg PO BID #14 tablet Gabapentin [Neurontin 100 mg Capsule] 100 mg PO Q8 #90 capsule Quetiapine Fumarate [Seroquel 100 mg Tablet] 100 mg PO QHS #30 tablet Diazepam [Valium 5 mg Tablet] 5 mg PO Q8 #6 tablet Home Medications: Gabapentin [Neurontin 100 mg Capsule] 100 mg PO Q8 04/19/19 Acetaminophen [Tylenol 325 mg Tablet] 650 mg PO Q4HP PRN tablet 04/20/19 Ciprofloxacin HCl [Cipro 500 mg Tablet] 500 mg PO BID #14 tablet 04/20/19 Diazepam [Valium 5 mg Tablet] 5 mg PO Q8 #6 tablet 04/20/19 Gabapentin [Neurontin 100 mg Capsule] 100 mg PO Q8 #90 capsule 04/20/19 Quetiapine Fumarate [Seroquel 100 mg Tablet] 100 mg PO QHS #30 tablet 04/20/19 History of Present Illiness History of Present Illness: Per H&P by Dr. Gamino: RAMBO MARTINEZ is a 33 year old male with a past medical history of bipolar, hepatitis C, alcoholism, IV drug use and recurrent pancreatitis. He presents with abdominal pain of 24 hours associated with fever vomiting of gastric content and diarrhea. In the emergency room he has a leukocytosis, fever, lactic acidosis and CT suggestive of mesenteric adenitis with a normal gallbladder and appendix. He receives empiric antibiotics and symptomatic management then referred to the hospitalist for admission. Patient in no acute distress without hypotension or tachycardia speaking clearly insisting he is in alcohol withdrawal requesting Ativan and morphine. His last use of IV morphine was 24 hours ago. Hospital Course Hospital Course: The patient was admitted to [facility] on continuous cardiac telemetry. Blood cultures are negative at 48 hours, leukocytosis is trended down, patient's symptoms have improved and he is now tolerating a regular diet without increased pain, nausea, vomiting or diarrhea. He was transitioned to oral Bactrim for coverage of the Yersinia enterocolitis, this is most typically associated with mesenteric adenitis. The patient's alcohol dependence was managed with scheduled oral Valium and IV Haldol as needed. He was provided IV banana bag nightly. He did not demonstrate acute withdrawal symptoms during his admission. The patient did contact [facility] to inquire about possible for detox and acute rehabilitation. He did not have any beds available at that time. Patient is encouraged to follow-up on discharge. At time of discharge, patient is in stable condition, maintaining oxygen saturations on room air, tolerating a regular diet without increased discomfort, and has required minimal PRN medications for symptom management. He is requesting to be discharged home today. He is advised to follow-up with his primary care provider within 1 week. He is instructed to complete his course of antibiotic therapy and to take all other medications as prescribed. He is advised to discontinue all alcohol and recreational drug use. He is instructed to return to the emergency department as needed for concerning symptoms. Physical Exam Vital Signs: Temp Pulse Resp BP Pulse Ox 97.7 F 94 16 123/71 96 04/20/19 17:36 04/20/19 17:36 04/20/19 17:36 04/20/19 17:36 04/20/19 17:36 Intake & Output 04/20/19 04/21/19 04/22/19 06:59 06:59 06:59 Intake Total 3004 1525 Balance 3004 1525 Weight 110 kg General appearance: PRESENT: no acute distress, well-developed, well-nourished - Overweight Head exam: PRESENT: atraumatic, normocephalic Eye exam: PRESENT: conjunctiva pink, EOMI, PERRLA. ABSENT: scleral icterus Ear exam: PRESENT: normal external ear exam Mouth exam: PRESENT: moist, tongue midline Teeth exam: PRESENT: poor dentation Respiratory exam: PRESENT: clear to auscultation jason, symmetrical, unlabored. ABSENT: rales, rhonchi, wheezes Cardiovascular exam: PRESENT: RRR. ABSENT: diastolic murmur, rubs, systolic murmur Vascular exam: PRESENT: normal capillary refill GI/Abdominal exam: PRESENT: normal bowel sounds, soft. ABSENT: distended, guarding, mass, organolmegaly, rebound, tenderness Rectal exam: PRESENT: deferred Extremities exam: PRESENT: full ROM. ABSENT: calf tenderness, clubbing, pedal edema Musculoskeletal exam: PRESENT: ambulatory Neurological exam: PRESENT: alert, awake, oriented to person, oriented to place, oriented to time, oriented to situation, CN II-XII grossly intact. ABSENT: motor sensory deficit Psychiatric exam: PRESENT: appropriate affect, normal mood. ABSENT: homicidal ideation, suicidal ideation Skin exam: PRESENT: dry, intact, warm. ABSENT: cyanosis, rash Results Laboratory Results: WBC 2.3 10^3/uL (4.0-10.5) L D 04/20/19 05:28 RBC 3.01 10^6/uL (4.35-5.55) L 04/20/19 05:28 Hgb 9.6 g/dL (13.5-17.0) L 04/20/19 05:28 Hct 27.6 % (37.9-51.0) L 04/20/19 05:28 MCV 92 fl (80-97) 04/20/19 05:28 MCH 31.9 pg (27.0-33.4) 04/20/19 05:28 MCHC 34.8 g/dL (32.0-36.0) 04/20/19 05:28 RDW 16.0 % (11.5-14.0) H 04/20/19 05:28 Plt Count 64 10^3/uL (150-450) L 04/20/19 05:28 Lymph % (Auto) 24.5 % (13-45) 04/19/19 03:12 [place] % (Auto) 7.4 % (3-13) 04/19/19 03:12 Eos % (Auto) 0.9 % (0-6) 04/19/19 03:12 Baso % (Auto) 0.5 % (0-2) 04/19/19 03:12 Absolute Neuts (auto) 3.5 10^3/uL (1.7-8.2) 04/19/19 03:12 Absolute Lymphs (auto) 1.3 10^3/uL (0.5-4.7) 04/19/19 03:12 Absolute Monos (auto) 0.4 10^3/uL (0.1-1.4) 04/19/19 03:12 Absolute Eos (auto) 0.0 10^3/uL (0.0-0.6) 04/19/19 03:12 Absolute Basos (auto) 0.0 10^3/uL (0.0-0.2) 04/19/19 03:12 Seg Neutrophils % 66.7 % (42-78) 04/19/19 03:12 PT 15.5 SEC (11.4-15.4) H 04/18/19 16:26 INR 1.22 04/18/19 16:26 APTT 36.0 SEC (23.5-35.8) H 04/18/19 16:26 VBG pH 7.50 (7.30-7.42) H 04/18/19 16:26 VBG pCO2 28.9 mmHg (35-63) L 04/18/19 16:26 VBG HCO3 21.9 mmol/L (20-32) 04/18/19 16:26 VBG Base Excess 0.3 mmol/L 04/18/19 16:26 Sodium 145.0 mmol/L (137-145) 04/20/19 05:28 Potassium 3.1 mmol/L (3.6-5.0) L 04/20/19 05:28 Chloride 114 mmol/L (98-107) H 04/20/19 05:28 Carbon Dioxide 22 mmol/L (22-30) 04/20/19 05:28 Anion Gap 9 (5-19) 04/20/19 05:28 BUN 3 mg/dL (7-20) L 04/20/19 05:28 Creatinine 0.61 mg/dL (0.52-1.25) 04/20/19 05:28 Est GFR ( Amer) > 60 (>60) 04/20/19 05:28 Est GFR (MDRD) Non-Af > 60 (>60) 04/20/19 05:28 Glucose 73 mg/dL (75-110) L 04/20/19 05:28 Lactic Acid 1.3 mmol/L (0.7-2.1) 04/20/19 05:28 Calcium 7.4 mg/dL (8.4-10.2) L 04/20/19 05:28 Phosphorus 3.4 mg/dL (2.5-4.5) 04/19/19 03:12 Magnesium 1.5 mg/dL (1.6-2.3) L 04/19/19 03:12 Total Bilirubin 1.4 mg/dL (0.2-1.3) H 04/20/19 05:28 Direct Bilirubin 1.1 mg/dL (0.0-0.4) H 04/20/19 05:28 Neonat Total Bilirubin Not Reportable 04/20/19 05:28 Neonat Direct Bilirubin Not Reportable 04/20/19 05:28 Neonat Indirect Bili Not Reportable 04/20/19 05:28 AST 53 U/L (17-59) 04/20/19 05:28 ALT 14 U/L (<50) 04/20/19 05:28 Alkaline Phosphatase 290 U/L (38-126) H 04/20/19 05:28 Ammonia 38.5 umol/L (9-33) H 04/18/19 16:26 Total Protein 6.2 g/dL (6.3-8.2) L 04/20/19 05:28 Albumin 2.5 g/dL (3.5-5.0) L 04/20/19 05:28 Lipase 93.7 U/L (23-300) 04/18/19 16:26 Urine Color YELLOW 04/18/19 19:25 Urine Appearance CLEAR 04/18/19 19:25 Urine pH 6.0 (5.0-9.0) 04/18/19 19:25 Ur Specific [place] 1.029 04/18/19 19:25 Urine Protein NEGATIVE mg/dL (NEGATIVE) 04/18/19 19:25 Urine Glucose (UA) NEGATIVE mg/dL (NEGATIVE) 04/18/19 19:25 Urine Ketones NEGATIVE mg/dL (NEGATIVE) 04/18/19 19:25 Urine Blood NEGATIVE (NEGATIVE) 04/18/19 19:25 Urine Nitrite (Reflex) NEGATIVE (NEGATIVE) 04/18/19 19:25 Urine Bilirubin NEGATIVE (NEGATIVE) 04/18/19 19:25 Urine Urobilinogen 2.0 mg/dL (<2.0) H 04/18/19 19:25 Leukocyte Esterase Rfl NEGATIVE (NEGATIVE) 04/18/19 19:25 Urine RBC (Auto) 0 /HPF 04/18/19 19:25 Urine WBC (Reflex) < 1 /HPF 04/18/19 19:25 Squamous Epi Cells Auto <1 /HPF 04/18/19 19:25 Urine Ascorbic Acid NEGATIVE (NEGATIVE) 04/18/19 19:25 Serum Alcohol 176 mg/dL (NONE DETECTED) 04/18/19 16:26 Influenza A (Rapid) NEGATIVE (NEGATIVE) 04/18/19 21:18 Influenza B (Rapid) NEGATIVE (NEGATIVE) 04/18/19 21:18 Impressions: Chest X-Ray 04/18/19 15:32 IMPRESSION: NO ACUTE RADIOGRAPHIC FINDING IN THE CHEST. Abdomen/Pelvis CT 04/18/19 17:17 IMPRESSION: 1. The liver is slightly heterogeneous and mildly hypoattenuating. Fatty infiltration versus hepatocellular disease. 2. Splenomegaly. 3. There are numerous small mesenteric and periaortic nodes. Cannot exclude mesenteric adenitis. Abdomen Ultrasound 04/18/19 21:18 IMPRESSION: Enlarged, diffusely heterogeneously echogenic liver, nonspecific though potentially indicative of a diffuse hepatocellular disease such as hepatic steatosis. Isolated mild gallbladder wall thickening, nonspecific. copyright 2011 [employer]- All Rights Reserved Plan Plan of Treatment: The patient was discharged in stable condition. He was advised to follow-up with his primary care provider within 1 week. He is instructed to complete his course of antibiotic therapy and take all other medications as prescribed. He was instructed to stop drinking and not to use recreational drugs. He was encouraged to return to emergency department as needed for concerning symptoms. Time Spent: Greater than 30 Minutes Stroke Is this a Stroke Patient?: No Acute Heart Failure - Is this a Heart Failure Patient?: No
== END 2019-04-20 19:45 | disposition home or self-care (01) ==
LOC: ER 15:17 → INTOOBSV 23:49 → EH 23:49 → 3S 04-19 01:52
PROVIDERS: ADMIT Internal Medicine; ATTEND Internal Medicine
DX: I88.0 Nonspecific mesenteric lymphadenitis (principal); R10.84 Generalized abdominal pain; F10.29 Alcohol dependence with unspecified alcohol-induced disorder; F19.90 Other psychoactive substance use, unspecified, uncomplicated; E87.2 Acidosis; K70.30 Alcoholic cirrhosis of liver without ascites; F31.9 Bipolar disorder, unspecified; E66.3 Overweight; M19.90 Unspecified osteoarthritis, unspecified site; R00.0 Tachycardia, unspecified; M54.5 Low back pain; E87.1 Hypo-osmolality and hyponatremia; F17.200 Nicotine dependence, unspecified, uncomplicated; K86.1 Other chronic pancreatitis; F11.10 Opioid abuse, uncomplicated; Z79.899 Other long term (current) drug therapy; Z86.19 Personal history of other infectious and parasitic diseases; Z86.73 Personal history of transient ischemic attack (TIA), and cerebral infarction without residual deficits; Z87.11 Personal history of peptic ulcer disease; Z23 Encounter for immunization
CPT/HCPCS: 93005; 99285; 96361; 96375; 96365; 96367; 36415 ×3; 87040; 80307; 82140; 83605 ×4; 83690; 83735; 84100; 85025 ×2; 85027; 85610; 85730; 80053 ×3; 81001; 82803; 87804; 71046; 76705; 74177; 90686; 93010; G0378 ×3; J1644; J3490 ×2; J1630 ×2; J2270; J2060; J3411 ×2; J2405; J7030 ×3; J7050 ×2; J3370; J0696 ×2

== ENCOUNTER 2019-06-15 11:19 | Emergency (ER) | payer OTHER ==
--- NOTE | 2019-06-15 12:42 | ER Document Report ---
ED Medical Screen (RME) - General Chief Complaint: Productive Cough Stated Complaint: COUGH/SORE THROAT Time Seen by Provider: 06/15/19 12:36 Notes: Patient is a 33-year-old male who presents the emergency department for 2 different reasons. His first reason is that he has had a cough and congestion for the past month. He also has anxiety and he has been picking at his skin. He also has drainage from his right eye. Patient states that he is an alcoholic and his last drink was this morning. He is looking to get clearance to go to [facility] for detox. He has a history of MRSA and cirrhosis of the liver. Exam: Multiple lesions noted all over her body, due to picking. I have greeted and performed a rapid initial assessment of this patient. A comprehensive ED assessment and evaluation of the patient, analysis of test results and completion of medical decision making process will be conducted by an additional ED providers. TRAVEL OUTSIDE OF THE [place] IN LAST 30 DAYS: No - Related Data Allergies/Adverse Reactions: carisoprodol [From Soma] Allergy (Verified 06/15/19 12:35) Sulfa (Sulfonamide Antibiotics) Allergy (Verified 06/15/19 12:35) Past Medical History - Past Medical History Cardiac Medical History: Reports: Hx Hypercholesterolemia, Hx Hypertension Pulmonary Medical History: Reports: Hx Bronchitis Neurological Medical History: Reports: Hx Cerebrovascular Accident - States he has had a TIA. Denies: Hx Seizures Renal/ Medical History: Denies: Hx Peritoneal Dialysis GI Medical History: Reports: Hx Cirrhosis, Hx Gastritis, Hx Hepatitis - Hepatitis-C, Hx Ulcer, Hx Endoscopy Musculoskeltal Medical History: Reports Hx Arthritis, Reports Hx Gout, Reports Hx Musculoskeletal Deformity, Reports Hx Musculoskeletal Trauma Psychiatric Medical History: Reports: Hx Anxiety, Hx Bipolar Disorder, Hx Depression, Hx Post Traumatic Stress Disorder Traumatic Medical History: Reports: Hx Fractures - Right hand Infectious Medical History: Reports: Hx Hepatitis - Hepatitis-C Past Surgical History: Reports: Hx Orthopedic Surgery - R hand - Immunizations Immunizations up to date: Yes Hx Diphtheria, Pertussis, Tetanus Vaccination: Yes
[2019-06-15 13:24] LABS: ABSOLUTE BASOPHILS # (AUTO) 0.1 10^3/uL (0.0-0.2); ABSOLUTE LYMPHOCYTES (AUTO) 1.8 10^3/uL (0.5-4.7); ABSOLUTE MONOCYTES (AUTO) 0.3 10^3/uL (0.1-1.4); ABSOLUTE NEUT (AUTO) 3.1 10^3/uL (1.7-8.2); BASOPHILS % (AUTO) 1.3 % (0-2); EOSINOPHILS % (AUTO) 0.8 % (0-6); HEMATOCRIT 34.2 % (37.9-51.0); HEMOGLOBIN 11.8 g/dL (13.5-17.0); LYMPHOCYTES % (AUTO) 33.1 % (13-45); MEAN CORPUSCULAR HEMOGLOBIN 32.3 pg (27.0-33.4); MEAN CORPUSCULAR HGB CONC 34.5 g/dL (32.0-36.0); MEAN CORPUSCULAR VOLUME 94 fl (80-97); PLATELET COUNT 138 10^3/uL (150-450); RED BLOOD COUNT 3.65 10^6/uL (4.35-5.55); RED CELL DISTRIBUTION WIDTH 14.4 % (11.5-14.0); SEGMENTED NEUTROPHILS % (AUTO) 58.8 % (42-78); TOTAL CELLS COUNTED % (AUTO) 100 %; WHITE BLOOD COUNT 5.3 10^3/uL (4.0-10.5)
[2019-06-15 13:33] LABS: APPEARANCE,URINE CLEAR; BILIRUBIN,URINE NEGATIVE (NEGATIVE); COLOR,URINE YELLOW; GLUCOSE, URINE NEGATIVE (NEGATIVE); KETONES,URINE NEGATIVE (NEGATIVE); LEUKOCYTE ESTERASE,URINE NEGATIVE (NEGATIVE); NITRITE,URINE NEGATIVE (NEGATIVE); PROTEIN,URINE NEGATIVE (NEGATIVE); URINE SPECIFIC GRAVITY 1.004; UROBILINOGEN,URINE NEGATIVE mg/dL (<2.0)
[2019-06-15 13:45] LABS: ALBUMIN 3.4 g/dL (3.5-5.0); ALCOHOL 61 mg/dL (NONE DETECTED); ALKALINE PHOSPHATASE 562 U/L (38-126); ANION GAP 15 (5-19); ASPARTATE AMINO TRANSFERASE 63 U/L (17-59); BILIRUBIN,DIRECT 0.8 mg/dL (0.0-0.4); BILIRUBIN,TOTAL 1.3 mg/dL (0.2-1.3); BLOOD UREA NITROGEN 2 mg/dL (7-20); CALCIUM 8.6 mg/dL (8.4-10.2); CARBON DIOXIDE 24 mmol/L (22-30); CHLORIDE 99 mmol/L (98-107); GLUCOSE 100 mg/dL (75-110); POTASSIUM 3.6 mmol/L (3.6-5.0); TOTAL PROTEIN 8.1 g/dL (6.3-8.2)
[2019-06-15 13:47] LABS: URINE BARBITURATES SCREEN NEGATIVE; URINE BENZODIAZEPINES SCREEN NEGATIVE; URINE COCAINE SCREEN NEGATIVE; URINE MARIJUANA (THC) SCREEN NEGATIVE; URINE METHADONE SCREEN NEGATIVE; URINE PHENCYCLIDINE SCREEN NEGATIVE
[2019-06-15 14:04] LABS: ACETAMINOPHEN < 10 ug/mL (10-30); SALICYLATE < 1.0 mg/dL (2.0-20.0)
[2019-06-15 14:05] LABS: URINE AMPHETAMINES SCREEN UNCONFIRMED POSITIVE
--- NOTE | 2019-06-15 14:21 | RADIOLOGY REPORT (SQ) ---
EXAM DESCRIPTION: CHEST 2 VIEWS COMPLETED DATE/TIME: 06/15/2019 2:02 pm REASON FOR STUDY: cough/congestion COMPARISON: 04/18/2019, 08/28/2016 EXAM PARAMETERS: NUMBER OF VIEWS: two views TECHNIQUE: Digital Frontal and Lateral radiographic views of the chest acquired. RADIATION DOSE: NA LIMITATIONS: none FINDINGS: LUNGS AND PLEURA: Minimal right middle lobe bandlike atelectasis. Remainder of the lungs are free of focal infiltrates. No pleural effusion. No pneumothorax. MEDIASTINUM AND HILAR STRUCTURES: No masses or contour abnormalities. HEART AND VASCULAR STRUCTURES: Heart normal size. No evidence for failure. BONES: No acute findings. HARDWARE: None in the chest. OTHER: No other significant finding. IMPRESSION: Minimal right middle lobe scarring or atelectasis TECHNICAL DOCUMENTATION: JOB ID: [id number] [employer]- All Rights Reserved Reading location - IP/workstation name: [email or web address]
[2019-06-15] MEDS ORDERED: IPRATROPIUM/ALBUTEROL 0.5-2.5 MG/3 ML AMPUL NEB ONE (18:32)
[2019-06-15] MEDS ORDERED: PREDNISONE 20 MG TABLET PO ONE (18:32)
[2019-06-15] MEDS ORDERED: DOXYCYCLINE HYCLATE 100 MG TABLET PO ONE (18:33)
--- NOTE | 2019-06-15 19:09 | ER Document Report ---
ED Respiratory Problem - General Chief Complaint: Cold Symptoms Stated Complaint: COUGH/SORE THROAT Time Seen by Provider: 06/15/19 12:36 Notes: Patient is a 33-year-old male who comes in complaining of a cough that he has had over the last 2 weeks. States that he feels it is getting worse. Patient also has had some nasal congestion. Denies any trouble breathing. No history of asthma but does smoke. Has used an inhaler before related to bronchospasm. No chest pain or abdominal pain. Patient has a history of cirrhosis from alcohol abuse. He is apparently going [facility] be seeing [facility] to [facility] to get into [facility] and would like a copy of his blood work and EKG. Denies any fever. Also states that he has some lesions on his skin because he has been picking at it. Concerned that they may be getting infected. TRAVEL OUTSIDE OF THE [place] IN LAST 30 DAYS: No - HPI Patient complains to provider of: Cough Onset: Other Duration: Continuous Quality of pain: No pain Severity: None Context: Smoker Cough: Nonproductive - Related Data Allergies/Adverse Reactions: carisoprodol [From Soma] Allergy (Verified 06/15/19 12:35) Sulfa (Sulfonamide Antibiotics) Allergy (Verified 06/15/19 12:35) Past Medical History - Social History Smoking Status: Current Every Day Smoker Chew tobacco use (# tins/day): No Frequency of alcohol use: Heavy Family History: Reviewed & Not Pertinent, CAD, CVA, Hyperlipidemia, Hypertension, Malignancy, Thyroid Disfunction Patient has suicidal ideation: No Patient has homicidal ideation: No - Past Medical History Cardiac Medical History: Reports: Hx Hypercholesterolemia, Hx Hypertension Pulmonary Medical History: Reports: Hx Bronchitis Neurological Medical History: Reports: Hx Cerebrovascular Accident - States he has had a TIA. Denies: Hx Seizures Renal/ Medical History: Denies: Hx Peritoneal Dialysis GI Medical History: Reports: Hx Cirrhosis, Hx Gastritis, Hx Hepatitis - Hepatitis-C, Hx Ulcer, Hx Endoscopy Musculoskeletal Medical History: Reports Hx Arthritis, Reports Hx Gout, Reports Hx Musculoskeletal Deformity, Reports Hx Musculoskeletal Trauma Psychiatric Medical History: Reports: Hx Anxiety, Hx Bipolar Disorder, Hx Depression, Hx Post Traumatic Stress Disorder Traumatic Medical History: Reports: Hx Fractures - Right hand Infectious Medical History: Reports: Hx Hepatitis - Hepatitis-C Past Surgical History: Reports: Hx Orthopedic Surgery - R hand - Immunizations Immunizations up to date: Yes Hx Diphtheria, Pertussis, Tetanus Vaccination: Yes Review of Systems - Review of Systems -: Yes All other systems reviewed and negative Physical Exam - Vital signs Vitals: Temp Pulse Resp BP Pulse Ox 98.0 F 107 H 18 115/67 96 06/15/19 12:41 06/15/19 12:41 06/15/19 12:41 06/15/19 12:41 06/15/19 12:41 Interpretation: Normal - General General appearance: Alert Notes: Chronically ill-appearing - HEENT Head: Normocephalic, Atraumatic Cornea: Normal Extraocular movements intact: Yes Mouth/Lips: Normal Pharynx: Normal - Respiratory Respiratory status: No respiratory distress Breath sounds: Other - Wheezing with cough only - Cardiovascular Rhythm: Regular, Tachycardia - Abdominal Inspection: Normal Tenderness: Nontender - Back Back: Normal - Extremities General upper extremity: Nontender, Normal ROM General lower extremity: Nontender, Normal ROM - Neurological Neuro grossly intact: Yes Cognition: Normal Orientation: AAOx4 Lane Coma Scale Eye Opening: Spontaneous Srikanth Coma Scale Verbal: Oriented - Psychological Associated symptoms: Normal affect, Normal mood - Skin Skin Temperature: Warm Skin Moisture: Dry Skin irregularity: Lesion - Areas consistent with patient picking at skin over bilateral upper and lower extremities as well as face. No erythema or evidence for abscess Course - Re-evaluation Re-evalutation: Patient unlikely with pneumonia. Better after DuoNeb. Will be discharged home with albuterol inhaler, prednisone, and doxycycline prescription. Requesting copy of blood work and EKG so that he can go to detox. Patient is otherwise medically stable. Slight tachycardia likely from albuterol given in the emergency department. Nontoxic-appearing. Return if any worsening or yana rning symptoms. Understands and agrees with plan. Stable for discharge. - Vital Signs Vital signs: Temp Pulse Resp BP Pulse Ox 98.7 F 106 H 17 119/70 98 06/15/19 19:25 06/15/19 19:25 06/15/19 19:25 06/15/19 19:25 06/15/19 19:25 - Laboratory Result Diagrams: 06/15/19 12:53 06/15/19 12:53 Laboratory results interpreted by me: 06/15/19 06/15/19 12:53 12:53 RBC 3.65 L Hgb 11.8 L Hct 34.2 L RDW 14.4 H Plt Count 138 L BUN 2 L Direct Bilirubin 0.8 H AST 63 H Alkaline Phosphatase 562 H Albumin 3.4 L Salicylates < 1.0 L Acetaminophen < 10 L - Diagnostic Test Radiology reviewed: Reports reviewed Discharge - Discharge Clinical Impression: Cough, Bronchospasm with bronchitis, acute Condition: Stable Disposition: HOME, SELF-CARE Instructions: Bronchitis With Bronchospasm (Wheezing) ([facility]) Prescriptions: Prednisone [Deltasone 20 mg Tablet] 3 tab PO DAILY 4 Days tablet Doxycycline Hyclate 100 mg PO BID #20 capsule Albuterol Sulfate [Proair HFA Inhalation Aerosol 8.5 gm MDI] 2 puff IH Q4H PRN #1 mdi PRN Reason:
[2019-06-15 19:26] VITALS: BP 119/70
--- NOTE | 2019-06-15 19:48 | EKG REPORT ---
SEVERITY:- BORDERLINE ECG - SINUS TACHYCARDIA BORDERLINE PROLONGED QT INTERVAL : Confirmed by: Rory Valadez MD 15-Jun-2019 19:46:53
== END 2019-06-15 19:25 | disposition home or self-care (01) ==
LOC: ER 11:19
DX: J20.9 Acute bronchitis, unspecified (principal); R05 Cough; J02.9 Acute pharyngitis, unspecified; F17.200 Nicotine dependence, unspecified, uncomplicated; I10 Essential (primary) hypertension
CPT/HCPCS: 93005; 94640; 99284; 36415; 80307 ×4; 85025; 80053; 81001; 71046; 93010; J7512; J7620

== ENCOUNTER 2019-07-04 07:24 | Emergency (ER) | payer OTHER ==
[2019-07-04] MEDS ORDERED: ONDANSETRON HCL INJ/PF 4 MG/2 ML SDV IV ONE (08:12)
[2019-07-04] MEDS ORDERED: NORMAL SALINE 1000 ML 1,000 ML IV ONE (08:12)
[2019-07-04] MEDS ORDERED: MORPHINE SULFATE 10 MG/ML INJ IV ONE (08:13)
[2019-07-04 08:39] LABS: ABSOLUTE EOSINOPHILS # (AUTO) 0.1 10^3/uL (0.0-0.6); ABSOLUTE LYMPHOCYTES (AUTO) 1.5 10^3/uL (0.5-4.7); ABSOLUTE MONOCYTES (AUTO) 0.3 10^3/uL (0.1-1.4); ABSOLUTE NEUT (AUTO) 3.4 10^3/uL (1.7-8.2); BASOPHILS % (AUTO) 0.2 % (0-2); EOSINOPHILS % (AUTO) 1.5 % (0-6); HEMOGLOBIN 11.5 g/dL (13.5-17.0); LYMPHOCYTES % (AUTO) 28.5 % (13-45); MEAN CORPUSCULAR VOLUME 94 fl (80-97); PLATELET COUNT 137 10^3/uL (150-450); RED BLOOD COUNT 3.61 10^6/uL (4.35-5.55); RED CELL DISTRIBUTION WIDTH 14.7 % (11.5-14.0); SEGMENTED NEUTROPHILS % (AUTO) 64.8 % (42-78); TOTAL CELLS COUNTED % (AUTO) 100 %; WHITE BLOOD COUNT 5.3 10^3/uL (4.0-10.5)
[2019-07-04 08:55] LABS: ALBUMIN 3.5 g/dL (3.5-5.0); ALKALINE PHOSPHATASE 433 U/L (38-126); ANION GAP 16 (5-19); ASPARTATE AMINO TRANSFERASE 60 U/L (17-59); BILIRUBIN,DIRECT 0.6 mg/dL (0.0-0.4); BILIRUBIN,TOTAL 1.1 mg/dL (0.2-1.3); BLOOD UREA NITROGEN < 2 mg/dL (7-20); CALCIUM 8.9 mg/dL (8.4-10.2); CARBON DIOXIDE 25 mmol/L (22-30); CHLORIDE 99 mmol/L (98-107); GLUCOSE 128 mg/dL (75-110); POTASSIUM 3.6 mmol/L (3.6-5.0); TOTAL PROTEIN 8.1 g/dL (6.3-8.2)
--- NOTE | 2019-07-04 09:14 | ER Document Report ---
ED GI/ - General Chief Complaint: Vomiting Stated Complaint: VOMITING BLOOD/ABDOMINAL PAIN Time Seen by Provider: 07/04/19 07:57 Notes: HPI: 34-year-old male who presents today with the onset a few weeks ago of some runny nose, congestion, and cough. He was seen here at this facility at that time. He got prescribed doxycycline and inhaler. Patient states that the cough has continued but improved. Nasal congestion is dried up. He started to have some intermittent vomiting and diarrhea. He states he has had diarrhea around 5 times a day for in 1 week. Denies any black or bloody in the diarrhea. He does state a little bit of red specks in the vomiting. He states mild epigastric abdominal discomfort. Patient does have alcoholic cirrhosis. He does admit to drinking alcohol. ROS: See HPI All other review of systems reviewed and otherwise negative Reviewed vital signs and nursing note as charted by RN. PHYSICAL EXAM: CONSTITUTIONAL: Alert and oriented and responds appropriately to questions. Well-appearing; well-nourished HEAD: Normocephalic; atraumatic EYES: PERRL; sclerae non-icteric ENT: Normal nose; no rhinorrhea; moist mucous membranes; pharynx without lesions noted NECK: Supple without meningismus; non-tender; no cervical lymphadenopathy, no masses CARD: Regular rate and rhythm; no murmurs; symmetric distal pulses RESP: Normal chest excursion without splinting or tachypnea; breath sounds clear and equal bilaterally; no wheezes, no rhonchi, no rales ABD/GI: Normal bowel sounds; non-distended; soft, mildly tender to palpation of the epigastric region without rebound or guarding. No palpable masses. No palpable fluid wave BACK: The back appears normal and is non-tender to palpation EXT: Normal ROM in all joints; non-tender to palpation; no edema SKIN: No acute lesions noted NEURO: CN 2-12 intact; 5/5 bilateral upper and lower extremity strength with sensation intact to light touch PSYCH: The patient's mood and manner are appropriate. Grooming and personal hygiene are appropriate. TRAVEL OUTSIDE OF THE [place] IN LAST 30 DAYS: No - Related Data Allergies/Adverse Reactions: carisoprodol [From Soma] Allergy (Verified 07/04/19 07:37) Sulfa (Sulfonamide Antibiotics) Allergy (Verified 07/04/19 07:37) Home Medications: albuterol Past Medical History - Social History Smoking Status: Current Every Day Smoker Chew tobacco use (# tins/day): No Frequency of alcohol use: Heavy Drug Abuse: None Family History: Reviewed & Not Pertinent, CAD, CVA, Hyperlipidemia, Hypertension, Malignancy, Thyroid Disfunction Patient has suicidal ideation: No Patient has homicidal ideation: No - Past Medical History Cardiac Medical History: Reports: Hx Hypercholesterolemia, Hx Hypertension Pulmonary Medical History: Reports: Hx Bronchitis Neurological Medical History: Reports: Hx Cerebrovascular Accident - States he has had a TIA. Denies: Hx Seizures Renal/ Medical History: Denies: Hx Peritoneal Dialysis GI Medical History: Reports: Hx Cirrhosis, Hx Gastritis, Hx Hepatitis - Hepatitis-C, Hx Ulcer, Hx Endoscopy Musculoskeletal Medical History: Reports Hx Arthritis, Reports Hx Gout, Reports Hx Musculoskeletal Deformity, Reports Hx Musculoskeletal Trauma Psychiatric Medical History: Reports: Hx Anxiety, Hx Bipolar Disorder, Hx Depression, Hx Post Traumatic Stress Disorder Traumatic Medical History: Reports: Hx Fractures - Right hand Infectious Medical History: Reports: Hx Hepatitis - Hepatitis-C Past Surgical History: Reports: Hx Orthopedic Surgery - R hand - Immunizations Immunizations up to date: Yes Hx Diphtheria, Pertussis, Tetanus Vaccination: Yes Physical Exam - Vital signs Vitals: Temp Pulse Resp BP Pulse Ox 99 F 99 18 121/66 97 07/04/19 07:32 07/04/19 07:32 07/04/19 07:32 07/04/19 07:32 07/04/19 07:32 Course - Re-evaluation Re-evalutation: 07/04/19 09:13 Given the above history and physical I did perform a rectal examination with fur trimming machine operator present showing no gross blood with Hemoccult negative stool. No change in the patient's hemoglobin level. Three-way x-ray of the abdomen is pending. I do believe given the constellation of symptoms of an upper respiratory tract infection followed by vomiting and diarrhea, that the patient most likely is suffering a viral-like illness. 07/04/19 09:50 Abdominal exam repeat is benign. Bilirubin as recorded. We have had our behavioral health team talk to the patient about outpatient resources given that I do not believe the slightly elevated bilirubin should exclude placement for alcohol detox. Patient understands the importance of follow-up. I have started the patient on antiacid medication given that I believe the combination of alcohol and doxycycline possibly have caused the patient to have some gastritis or develop stomach ulcer. Hemoccult is negative. Hemoglobin unchanged. Patient will be discharged home with strict return precautions and follow-up outpatient instructions as well as starting the patient on antiacid medications. First dose will be provided here. - Vital Signs Vital signs: Temp Pulse Resp BP Pulse Ox 99 F 99 18 121/66 97 07/04/19 07:32 07/04/19 07:32 07/04/19 07:32 07/04/19 07:32 07/04/19 07:32 - Laboratory Result Diagrams: 07/04/19 08:20 07/04/19 08:20 Laboratory results interpreted by me: 07/04/19 07/04/19 08:20 08:20 RBC 3.61 L Hgb 11.5 L Hct 34.0 L RDW 14.7 H Plt Count 137 L BUN < 2 L Creatinine 0.51 L Glucose 128 H Direct Bilirubin 0.6 H AST 60 H Alkaline Phosphatase 433 H Discharge - Discharge Clinical Impression: Nausea vomiting and diarrhea, Epigastric abdominal pain, Alcohol abuse Condition: Good Disposition: HOME, SELF-CARE Additional Instructions: Come back immediately for any worsening pain, repeated vomiting or diarrhea, worsening blood in the vomit, lightheadedness or dizziness, change in location or quality of pain, or any other acute problems. Please start taking an [id number] Prilosec as we have discussed. Please refrain from alcohol as best you can and please follow-up with 1 of the outpatient services we have provided. Prescriptions: Ondansetron [Zofran Odt 4 mg Tablet] 1 - 2 tab PO Q4HP PRN #10 tab.rapdis PRN Reason:
--- NOTE | 2019-07-04 09:28 | RADIOLOGY REPORT (SQ) ---
EXAM DESCRIPTION: ACUTE ABDOMEN SERIES COMPLETED DATE/TIME: 07/04/2019 9:03 am REASON FOR STUDY: 7; Pain, vomiting blood COMPARISON: Chest x-ray dated 04/28/2019, abdomen dated 10/27/2018 NUMBER OF VIEWS: Three views. TECHNIQUE: Frontal chest, supine abdomen and upright/decubitus abdomen radiographic images acquired. LIMITATIONS: None. FINDINGS: CHEST: Lungs clear of infiltrates. FREE AIR: None. No abnormal gas collections. BOWEL GAS PATTERN: Nonobstructive pattern. No dilated loops or air fluid levels. CALCIFICATIONS: No suspicious calcifications. HARDWARE: None in the abdomen. SOFT TISSUES: No gross mass or suggestion of organomegaly. BONES: No acute fracture. No worrisome bone lesions. OTHER: No other significant finding. IMPRESSION: NO RADIOGRAPHIC EVIDENCE FOR ACUTE ABDOMINAL DISEASE. TECHNICAL DOCUMENTATION: JOB ID: [id number] [employer]- All Rights Reserved Reading location - IP/workstation name: [email or web address]
[2019-07-04] MEDS ORDERED: MAG HYDROX/AL HYDROX/SIMETH SUSP 30 ML UDCUP PO ONE (09:51)
[2019-07-04] MEDS ORDERED: METOCLOPRAMIDE HCL ORAL SOLN 10 MG/10 ML UDCUP PO ONE (09:51)
[2019-07-04] MEDS ORDERED: LIDOCAINE 2% VISCOUS SOLN 15 ML UDCUP PO ONE (09:51)
[2019-07-04 10:23] VITALS: BP 142/60
== END 2019-07-04 10:21 | disposition home or self-care (01) ==
LOC: ER 07:24
DX: K92.0 Hematemesis (principal); R10.13 Epigastric pain; R19.7 Diarrhea, unspecified; F10.10 Alcohol abuse, uncomplicated; R09.89 Other specified symptoms and signs involving the circulatory and respiratory systems; R05 Cough; R10.816 Epigastric abdominal tenderness; F17.200 Nicotine dependence, unspecified, uncomplicated; I10 Essential (primary) hypertension; Z88.8 Allergy status to other drugs, medicaments and biological substances
CPT/HCPCS: 99284; 96361; 96374; 96375; 36415; 83690; 85025; 80053; 74022; J2270; J2405; J7030

== ENCOUNTER 2019-09-20 23:28 | Emergency (ER) | payer OTHER ==
[2019-09-21] MEDS ORDERED: ONDANSETRON HCL INJ/PF 4 MG/2 ML SDV IV ONE (00:33)
[2019-09-21] MEDS ORDERED: ACETAMINOPHEN 325 MG TABLET PO ONE (00:33)
[2019-09-21] MEDS ORDERED: MORPHINE SULFATE 10 MG/ML INJ IV ONE ×3 (00:33→11:47)
[2019-09-21] MEDS ORDERED: NORMAL SALINE 1000 ML 1,000 ML IV ONE ×2 (00:33→02:17)
--- NOTE | 2019-09-21 01:02 | ER Document Report ---
ED General - General TRAVEL OUTSIDE OF THE [place] IN LAST 30 DAYS: No <SUSAN LAI - Last Filed: 09/21/19 08:01> <PALLAVI,NORMANZEUS - Last Filed: 09/21/19 13:30> - General Stated Complaint: ABDOMINAL PAIN Time Seen by Provider: 09/20/19 23:51 Primary Care Provider: [facility] [Provider Group] - Follow up as needed [facility] [Provider Group] - Follow up as needed JOE OSMAN MD [ACTIVE STAFF] - Follow up as needed GABI PRABHAKAR MD [ACTIVE STAFF] - Follow up as needed SHAREE RAIN MD [ACTIVE STAFF] - Follow up as needed Notes: Patient is a 34 year old male that comes to the Emergency Department for chief complaint of about 4 days of sick symptoms. He states his worst symptom is sharp abdominal pain in his upper abdomen that radiates around to his back, reports nausea but denies vomiting. Pain occasionally goes up into the chest. He reports normal bowel movements. He is also had a intermittent cough. He denies sore throat, congestion. He denies recent travel or exposures. He does admit to alcohol dependence, he did drink alcohol this morning, he does have a history of alcohol withdrawals. He also has a history of IV drug abuse. He denies any daily medications. He does smoke but denies history of asthma. (SUSAN LAI) - Related Data Allergies/Adverse Reactions: carisoprodol [From Soma] Allergy (Verified 07/04/19 07:37) Sulfa (Sulfonamide Antibiotics) Allergy (Verified 07/04/19 07:37) Past Medical History - General Information source: Patient - Social History Smoking Status: Never Smoker Frequency of alcohol use: None Drug Abuse: None Lives with: Family Family History: Reviewed & Not Pertinent, CAD, CVA, Hyperlipidemia, Hypertension, Malignancy, Thyroid Disfunction - Past Medical History Cardiac Medical History: Reports: Hx Hypercholesterolemia, Hx Hypertension Pulmonary Medical History: Reports: Hx Bronchitis Neurological Medical History: Reports: Hx Cerebrovascular Accident - States he has had a TIA. Denies: Hx Seizures Renal/ Medical History: Denies: Hx Peritoneal Dialysis GI Medical History: Reports: Hx Cirrhosis, Hx Gastritis, Hx Hepatitis - Hepatitis-C, Hx Ulcer, Hx Endoscopy Musculoskeletal Medical History: Reports Hx Arthritis, Reports Hx Gout, Reports Hx Musculoskeletal Deformity, Reports Hx Musculoskeletal Trauma Psychiatric Medical History: Reports: Hx Anxiety, Hx Bipolar Disorder, Hx Depression, Hx Post Traumatic Stress Disorder Traumatic Medical History: Reports: Hx Fractures - Right hand Infectious Medical History: Reports: Hx Hepatitis - Hepatitis-C Past Surgical History: Reports: Hx Orthopedic Surgery - R hand - Immunizations Immunizations up to date: Yes Hx Diphtheria, Pertussis, Tetanus Vaccination: Yes <SUSAN LAI - Last Filed: 09/21/19 08:01> Review of Systems - Review of Systems Constitutional: See HPI EENT: No symptoms reported Cardiovascular: No symptoms reported Respiratory: See HPI Gastrointestinal: See HPI Genitourinary: No symptoms reported Male Genitourinary: No symptoms reported Musculoskeletal: No symptoms reported Skin: No symptoms reported Hematologic/Lymphatic: No symptoms reported Neurological/Psychological: No symptoms reported <SUSAN LAI - Last Filed: 09/21/19 08:01> Physical Exam <SUSAN LAI - Last Filed: 09/21/19 08:01> - Vital signs Vitals: Temp Pulse Resp BP Pulse Ox 100.2 F 127 H 19 109/60 96 09/20/19 23:28 09/20/19 23:28 09/20/19 23:28 09/20/19 23:28 09/20/19 23:28 - Notes Notes: GENERAL: Alert, responsive, somewhat ill-appearing HEAD: Normocephalic, atraumatic. EYES: Pupils equal, round, and reactive to light. Extraocular movements intact. ENT: Oral mucosa moist, tongue midline. Oropharynx unremarkable. Airway patent. Nares patent, sinuses non-tender, ear canals unremarkable, TM's intact. NECK: Full range of motion. Supple. Trachea midline. No lymphadenopathy. Negative LUNGS: Clear to auscultation bilaterally, no wheezes, rales, or rhonchi. No respiratory distress. Non-tender chest wall. HEART: Tachycardia, normal rhythm, no murmur ABDOMEN: Tender in the generalized upper abdomen with wincing. General lower abdomen is benign. Bowel sounds present. No distention or guarding. Large amount of striation/stretch terrazas. EXTREMITIES: Moves all 4 extremities spontaneously. No edema, normal radial and dorsalis pedis pulses bilaterally. No cyanosis. BACK: no cervical, thoracic, lumbar midline tenderness. No saddle anesthesia, normal distal neurovascular exam. Moves all extremities in full range of motion. NEUROLOGICAL: Alert and oriented x3. Normal speech. Cranial nerves II through XII grossly intact. Strength 5/5 in all extremities. PSYCH: Slightly agitated SKIN: Flushed (SUSAN LAI) Course - Laboratory Result Diagrams: 09/21/19 00:54 09/21/19 00:54 <SUSAN LAI - Last Filed: 09/21/19 08:01> - Laboratory Result Diagrams: 09/21/19 00:54 09/21/19 00:54 - Diagnostic Test Radiology reviewed: Reports reviewed <SUREKHA WORLEY - Last Filed: 09/21/19 13:30> - Re-evaluation Re-evalutation: Patient tachycardic, ill-appearing, temperature of 100.2, tenderness in the upper abdomen on exam. No history of kidney stones but he does report some flank pain. Full work-up pending. Patient will be given symptom management, IV fluids. Patient continued to be tachycardic on reevaluation, given Ativan and this resolved. There appears to be a withdrawal component, alcohol level is 0. CBC unremarkable, chemistry shows borderline bilirubin, lipase unremarkable. Troponin is not elevated. Chest x-ray unremarkable. Ultrasound performed, shows some gallbladder wall thickening but no stones or pericholecystic fluid. If concern persists for acute cholecystitis HIDA scan is recommended. Urinalysis finally obtained after 2 bags of IV fluids and this was generally unremarkable. Drug screen also showing methamphetamine which could be contributing to patient's overall symptoms. Cultures are pending. On evaluation patient appears uncomfortable again, he is not complaining of chest pain, his only pain is in the right upper quadrant and he does appear uncomfortable. I discussed with Dr. Del Angel. His recommendation is patient to have a HIDA scan to help with the disposition. I discussed with patient, patient states agreement. He is comfortable on this evaluation. 09/21/19 Report given to Fiona Worley NP pending report and disposition. (SUSAN LAI) 09/21/19 09:30 Confirmed with corporate secretary that radiology staff are aware of ordered HIDA scan. 09/21/19 11:48 Patient continues with right upper quadrant abdominal tenderness. Patient requesting additional pain medication at this time. Patient tachycardic heart rate in the 110s. Patient's HIDA scan reviewed, no acute abnormalities. 09/21/19 12:[address] Rowley regarding patient presentation diagnostic evaluation. No additional testing advised at this time. Recommends outpatient follow-up with GI doctor. 09/21/19 13:21 Patient advised of discharge plan of care. Advised patient to follow-up with a primary doctor as well as air export logistics manager for further evaluation. Patient encouraged to return for any vomiting, fever, worsening pain or new concerning symptoms. Patient does acknowledge a history of similar abdominal pain in the past typically about 1 episode every year. Patient states that this pain is sim ilar to the episodes that he has had in the past. Patient requesting narcotic pain medication. Patient advised that no narcotic prescription would be written. Patient states "that is okay, I just want to leave". Patient does still have some mild tachycardia that did improve after administration of narcotic pain medication. Patient has a known history of polysubstance abuse although presently denies any recent use. Patient did test positive for amphetamines on his urine drug screen. Patient does acknowledge that he is likely withdrawing from alcohol but declines any treatment at this time. Last alcohol use was yesterday. (SUREKHA WORLEY) - Vital Signs Vital signs: Temp Pulse Resp BP Pulse Ox 98.7 F 118 H 15 105/60 93 09/21/19 06:58 09/21/19 01:36 09/21/19 09:01 09/21/19 13:01 09/21/19 13:01 - Laboratory Laboratory results interpreted by me: 09/21/19 09/21/19 09/21/19 00:54 00:54 00:54 RBC 3.77 L Hgb 11.4 L Hct 32.8 L RDW 15.4 H Plt Count 107 L Sodium 129.3 L Chloride 94 L BUN 5 L Lactic Acid 3.0 H Total Bilirubin 1.8 H Direct Bilirubin 0.9 H Alkaline Phosphatase 429 H Lipase 17.8 L Urine Urobilinogen 09/21/19 03:40 RBC Hgb Hct RDW Plt Count Sodium Chloride BUN Lactic Acid Total Bilirubin Direct Bilirubin Alkaline Phosphatase Lipase Urine Urobilinogen 2.0 H 09/21/19 11:48 Labs- Entire Visit 09/21/19 09/21/19 09/21/19 00:54 00:54 00:54 WBC 5.4 RBC 3.77 L Hgb 11.4 L Hct 32.8 L MCV 87 MCH 30.3 MCHC 34.8 RDW 15.4 H Plt Count 107 L Lymph % (Auto) 23.0 Dupage % (Auto) 7.2 Eos % (Auto) 0.6 Baso % (Auto) 0.7 Absolute Neuts (auto) 3.7 Absolute Lymphs (auto) 1.3 Absolute Monos (auto) 0.4 Absolute Eos (auto) 0.0 Absolute Basos (auto) 0.0 Seg Neutrophils % 68.5 Sodium 129.3 L Potassium 3.8 Chloride 94 L Carbon Dioxide 24 Anion Gap 11 BUN 5 L Creatinine 0.63 Est GFR ( Amer) > 60 Est GFR (MDRD) Non-Af > 60 Glucose 97 Lactic Acid Calcium 8.6 Total Bilirubin 1.8 H Direct Bilirubin 0.9 H Neonat Total Bilirubin Not Reportable Neonat Direct Bilirubin Not Reportable Neonat Indirect Bili Not Reportable AST 28 ALT 11 Alkaline Phosphatase 429 H Troponin I < 0.012 Total Protein 8.1 Albumin 3.6 Lipase 17.8 L Urine Color Urine Appearance Urine pH Ur Specific Cantrall Urine Protein Urine Glucose (UA) Urine Ketones Urine Blood Urine Nitrite Urine Bilirubin Urine Urobilinogen Ur Leukocyte Esterase Urine WBC (Auto) Urine RBC (Auto) Squamous Epi Cells Auto Urine Mucus (Auto) Urine Ascorbic Acid Urine Opiates Screen Urine Methadone Screen Ur Barbiturates Screen Ur Phencyclidine Scrn Ur Amphetamines Screen U Benzodiazepines Scrn Urine Cocaine Screen U Marijuana (THC) Screen Serum Alcohol < 10 Influenza A (Rapid) Influenza B (Rapid) Group A Strep Rapid 09/21/19 09/21/19 09/21/19 00:54 00:54 00:54 WBC RBC Hgb Hct MCV MCH MCHC RDW Plt Count Lymph % (Auto) Dupage % (Auto) Eos % (Auto) Baso % (Auto) Absolute Neuts (auto) Absolute Lymphs (auto) Absolute Monos (auto) Absolute Eos (auto) Absolute Basos (auto) Seg Neutrophils % Sodium Potassium Chloride Carbon Dioxide Anion Gap BUN Creatinine Est GFR ( Amer) Est GFR (MDRD) Non-Af Glucose Lactic Acid 3.0 H Calcium Total Bilirubin Direct Bilirubin Neonat Total Bilirubin Neonat Direct Bilirubin Neonat Indirect Bili AST ALT Alkaline Phosphatase Troponin I Total Protein Albumin Lipase Urine Color Urine Appearance Urine pH Ur Specific [place]rall Urine Protein Urine Glucose (UA) Urine Ketones Urine Blood Urine Nitrite Urine Bilirubin Urine Urobilinogen Ur Leukocyte Esterase Urine WBC (Auto) Urine RBC (Auto) Squamous Epi Cells Auto Urine Mucus (Auto) Urine Ascorbic Acid Urine Opiates Screen Urine Methadone Screen Ur Barbiturates Screen Ur Phencyclidine Scrn Ur Amphetamines Screen U Benzodiazepines Scrn Urine Cocaine Screen U Marijuana (THC) Screen Serum Alcohol Influenza A (Rapid) NEGATIVE Influenza B (Rapid) NEGATIVE Group A Strep Rapid NEGATIVE 09/21/19 09/21/19 09/21/19 03:40 03:40 04:30 WBC RBC Hgb Hct MCV MCH MCHC RDW Plt Count Lymph % (Auto) Dupage % (Auto) Eos % (Auto) Baso % (Auto) Absolute Neuts (auto) Absolute Lymphs (auto) Absolute Monos (auto) Absolute Eos (auto) Absolute Basos (auto) Seg Neutrophils % Sodium Potassium Chloride Carbon Dioxide Anion Gap BUN Creatinine Est GFR ( Amer) Est GFR (MDRD) Non-Af Glucose Lactic Acid 1.1 Calcium Total Bilirubin Direct Bilirubin Neonat Total Bilirubin Neonat Direct Bilirubin Neonat Indirect Bili AST ALT Alkaline Phosphatase Troponin I Total Protein Albumin Lipase Urine Color TARIK Urine Appearance CLEAR Urine pH 7.0 Ur Specific Cantrall 1.006 Urine Protein NEGATIVE Urine Glucose (UA) NEGATIVE Urine Ketones NEGATIVE Urine Blood NEGATIVE Urine Nitrite NEGATIVE Urine Bilirubin NEGATIVE Urine Urobilinogen 2.0 H Ur Leukocyte Esterase NEGATIVE Urine WBC (Auto) 1 Urine RBC (Auto) 1 Squamous Epi Cells Auto <1 Urine Mucus (Auto) RARE Urine Ascorbic Acid NEGATIVE Urine Opiates Screen UNCONFIRMED POSITIVE Urine Methadone Screen NEGATIVE Ur Barbiturates Screen NEGATIVE Ur Phencyclidine Scrn NEGATIVE Ur Amphetamines Screen UNCONFIRMED POSITIVE U Benzodiazepines Scrn UNCONFIRMED POSITIVE Urine Cocaine Screen NEGATIVE U Marijuana (THC) Screen NEGATIVE Serum Alcohol Influenza A (Rapid) Influenza B (Rapid) Group A Strep Rapid (SUREKHA WORLEY) Discharge <SUSAN LAI - Last Filed: 09/21/19 08:01> <SUREKHA WORLEY - Last Filed: 09/21/19 13:30> - Discharge Clinical Impression: Upper abdominal pain, Tachycardia, Methamphetamine abuse Alcohol withdrawal Qualifiers: Complication of substance-induced condition: with unspecified complication Qualified Code(s): F10.239 - Alcohol dependence with withdrawal, unspecified Alcohol dependence Qualifiers: Substance use status: unspecified alcohol-induced disorder Qualified Code(s): F10.29 - Alcohol dependence with unspecified alcohol-induced disorder Condition: Stable Disposition: HOME, SELF-CARE Instructions: Abdominal Pain ([facility]), Antispasmodics ([facility]), Chronic Alcoholism ([facility]) Additional Instructions: Return immediately for any new or worsening symptoms Followup with your primary care provider, call tomorrow to make a followup appointment Follow-up with a air export logistics manager, call today to make a follow-up appointment Prescriptions: Dicyclomine HCl [Bentyl 20 mg Tablet] 20 mg PO QID PRN #12 tablet PRN Reason: Naproxen [Naprosyn 250 Nmg Tablet] 1 tab PO BID #14 tablet Referrals: [facility] [Provider Group] - Follow up as needed [facility] [Provider Group] - Follow up as needed GABI PRABHAKAR MD [ACTIVE STAFF] - Follow up as needed JOE OSMAN MD [ACTIVE STAFF] - Follow up as needed SHAREE RAIN MD [ACTIVE STAFF] - Follow up as needed
[2019-09-21 01:09] LABS: ABSOLUTE LYMPHOCYTES (AUTO) 1.3 10^3/uL (0.5-4.7); ABSOLUTE MONOCYTES (AUTO) 0.4 10^3/uL (0.1-1.4); ABSOLUTE NEUT (AUTO) 3.7 10^3/uL (1.7-8.2); BASOPHILS % (AUTO) 0.7 % (0-2); EOSINOPHILS % (AUTO) 0.6 % (0-6); HEMATOCRIT 32.8 % (37.9-51.0); HEMOGLOBIN 11.4 g/dL (13.5-17.0); MEAN CORPUSCULAR HEMOGLOBIN 30.3 pg (27.0-33.4); MEAN CORPUSCULAR HGB CONC 34.8 g/dL (32.0-36.0); MEAN CORPUSCULAR VOLUME 87 fl (80-97); MONOCYTES % (AUTO) 7.2 % (3-13); PLATELET COUNT 107 10^3/uL (150-450); RED BLOOD COUNT 3.77 10^6/uL (4.35-5.55); RED CELL DISTRIBUTION WIDTH 15.4 % (11.5-14.0); SEGMENTED NEUTROPHILS % (AUTO) 68.5 % (42-78); TOTAL CELLS COUNTED % (AUTO) 100 %; WHITE BLOOD COUNT 5.4 10^3/uL (4.0-10.5)
[2019-09-21 01:27] LABS: ALBUMIN 3.6 g/dL (3.5-5.0); ALKALINE PHOSPHATASE 429 U/L (38-126); ANION GAP 11 (5-19); ASPARTATE AMINO TRANSFERASE 28 U/L (17-59); BILIRUBIN,DIRECT 0.9 mg/dL (0.0-0.4); BILIRUBIN,TOTAL 1.8 mg/dL (0.2-1.3); BLOOD UREA NITROGEN 5 mg/dL (7-20); CALCIUM 8.6 mg/dL (8.4-10.2); CARBON DIOXIDE 24 mmol/L (22-30); CHLORIDE 94 mmol/L (98-107); GLUCOSE 97 mg/dL (75-110); POTASSIUM 3.8 mmol/L (3.6-5.0); TOTAL PROTEIN 8.1 g/dL (6.3-8.2)
[2019-09-21 01:29] LABS: ALCOHOL < 10 mg/dL (NONE DETECTED)
[2019-09-21 01:39] LABS: A TYPE INFLUENZA AG NEGATIVE (NEGATIVE); B INFLUENZA AG NEGATIVE (NEGATIVE)
[2019-09-21] MEDS ORDERED: LORAZEPAM INJ 2 MG/1 ML VIAL IV ONE (01:49)
--- NOTE | 2019-09-21 03:02 | RADIOLOGY REPORT (SQ) ---
CLINICAL INDICATION: fever, cough. TECHNIQUE: A single portable AP view was obtained of the chest at 0229 hours. COMPARISON: June 15, 2019. FINDINGS: The cardiomediastinal silhouette is normal. The lungs are grossly clear. No evidence of effusion or pneumothorax. The visualized bones are unremarkable. Lungs of low volume IMPRESSION: No evidence of active intrathoracic disease. Lungs of low volume but grossly clear. No adverse change compared to prior
--- NOTE | 2019-09-21 03:13 | RADIOLOGY REPORT (SQ) ---
EXAM DESCRIPTION: US ABDOMEN LIMITED COMPLETED DATE/TME: 09/21/2019 01:48 CLINICAL HISTORY: 34 years, Male, epigastric and flank pain, fever COMPARISON: CT and ultrasound dated 04/18/2019 TECHNIQUE: Grayscale and color images of the abdomen were obtained LIMITATIONS: None. FINDINGS: The visualized portions of the pancreas and abdominal aorta appear unremarkable. The liver measures 23.3 cm. No focal hepatic lesion is identified. The main portal vein demonstrates normal hepatopedal flow. There is no evidence of cholelithiasis. The gallbladder wall measures up to 5 mm in thickness. No pericholecystic fluid. No sonographic Collazo sign was elicited. The common bile duct measures up to 5 mm in diameter. The right kidney measures 12.3 cm in length. No hydronephrosis. No free fluid is identified. IMPRESSION: Nonspecific gallbladder wall thickening. No evidence of cholelithiasis. No sonographic Collazo sign was elicited. If there is concern for acute cholecystitis, a nuclear medicine scan may be useful in further evaluation. Hepatomegaly. copyright 2010 [employer]- All Rights Reserved
[2019-09-21 04:01] LABS: APPEARANCE,URINE CLEAR; BILIRUBIN,URINE NEGATIVE (NEGATIVE); COLOR,URINE AMBER; GLUCOSE, URINE NEGATIVE (NEGATIVE); KETONES,URINE NEGATIVE (NEGATIVE); LEUKOCYTE ESTERASE,URINE NEGATIVE (NEGATIVE); NITRITE,URINE NEGATIVE (NEGATIVE); PROTEIN,URINE NEGATIVE (NEGATIVE); URINE SPECIFIC GRAVITY 1.006
[2019-09-21 04:22] LABS: URINE BARBITURATES SCREEN NEGATIVE; URINE COCAINE SCREEN NEGATIVE; URINE MARIJUANA (THC) SCREEN NEGATIVE; URINE METHADONE SCREEN NEGATIVE; URINE PHENCYCLIDINE SCREEN NEGATIVE
[2019-09-21 04:25] LABS: URINE AMPHETAMINES SCREEN UNCONFIRMED POSITIVE; URINE BENZODIAZEPINES SCREEN UNCONFIRMED POSITIVE
--- NOTE | 2019-09-21 09:52 | EKG REPORT ---
SEVERITY:- OTHERWISE NORMAL ECG - SINUS TACHYCARDIA : Confirmed by: Ching Martin MD 21-Sep-2019 09:51:01
--- NOTE | 2019-09-21 11:02 | RADIOLOGY REPORT (SQ) ---
EXAM DESCRIPTION: NM HIDA SCAN IMAGES COMPLETED DATE/TIME: 09/21/2019 10:52 am REASON FOR STUDY: RUQ pain, fever, indeterminate U/S COMPARISON: 03/24/2018. RADIONUCLIDE AND DOSE: DOSAGE RADIONUCLIDE: 5.13 millicuries Tc99m Mebrofenin. DOSAGE MORPHINE: Not required. The route of agent administration: Intravenous TECHNIQUE: Serial imaging right upper quadrant up to 60 minutes following injection of radionuclide. Patient imaged AP and Right Lateral. LIMITATIONS: None. FINDINGS: LIVER: Normal visualization without areas of photopenia. INTRA-HEPATIC BILE DUCTS: Temporal visualization normal. No dilatation. COMMON BILE DUCT: Normal without dilatation or delayed visualization. GALLBLADDER: Normal visualization. OTHER: No other significant finding. IMPRESSION: NORMAL STUDY WITHOUT CYSTIC OR COMMON DUCT OBSTRUCTION. TECHNICAL DOCUMENTATION: JOB ID: [id number] 2010 [employer]- All Rights Reserved Reading location - IP/workstation name: [email or web address]
[2019-09-21 13:21] VITALS: BP 105/60
== END 2019-09-21 13:43 | disposition home or self-care (01) ==
LOC: ER 23:28
DX: R10.10 Upper abdominal pain, unspecified (principal); R00.0 Tachycardia, unspecified; F19.10 Other psychoactive substance abuse, uncomplicated; F10.239 Alcohol dependence with withdrawal, unspecified; F10.29 Alcohol dependence with unspecified alcohol-induced disorder; R10.30 Lower abdominal pain, unspecified; M54.9 Dorsalgia, unspecified; R11.0 Nausea; R05 Cough; Z88.8 Allergy status to other drugs, medicaments and biological substances; Z88.2 Allergy status to sulfonamides; I10 Essential (primary) hypertension
CPT/HCPCS: 93005; 96376; 99284; 96361; 96374; 96375; 36415; 87040; 87070; 87880; 80307 ×2; 83605; 83690; 85025; 87077; 80053; 81001; 84484; 87186; 87804; 87150 ×26; 71045; 76705; 78226; 93010; A9537; J2270; J2060; J2405; J7030; Q9969

== ENCOUNTER 2019-09-21 21:54 | Inpatient (IN) | payer OTHER ==
[2019-09-21] MEDS ORDERED: PIPERACILLIN/TAZOBACTAM 4.5 GM VIAL IV ONE (22:15)
[2019-09-21] MEDS ORDERED: RINGERS LACTATED IV ONE (22:27)
[2019-09-21 22:33] LABS: ABSOLUTE LYMPHOCYTES (AUTO) 0.5 10^3/uL (0.5-4.7); ABSOLUTE MONOCYTES (AUTO) 0.2 10^3/uL (0.1-1.4); ABSOLUTE NEUT (AUTO) 4.4 10^3/uL (1.7-8.2); BASOPHILS % (AUTO) 0.3 % (0-2); EOSINOPHILS % (AUTO) 0.5 % (0-6); HEMATOCRIT 32.2 % (37.9-51.0); HEMOGLOBIN 11.1 g/dL (13.5-17.0); LYMPHOCYTES % (AUTO) 8.9 % (13-45); MEAN CORPUSCULAR HEMOGLOBIN 30.3 pg (27.0-33.4); MEAN CORPUSCULAR HGB CONC 34.5 g/dL (32.0-36.0); MEAN CORPUSCULAR VOLUME 88 fl (80-97); MONOCYTES % (AUTO) 3.8 % (3-13); PLATELET COUNT 107 10^3/uL (150-450); RED BLOOD COUNT 3.66 10^6/uL (4.35-5.55); RED CELL DISTRIBUTION WIDTH 15.3 % (11.5-14.0); SEGMENTED NEUTROPHILS % (AUTO) 86.5 % (42-78); TOTAL CELLS COUNTED % (AUTO) 100 %; WHITE BLOOD COUNT 5.1 10^3/uL (4.0-10.5)
[2019-09-21 22:34] LABS: VENOUS BLOOD BASE EXCESS -3.1 mmol/L; VENOUS BLOOD HCO3 22.1 mmol/L (20-32); VENOUS BLOOD PCO2 40.4 mmHg (35-63); VENOUS BLOOD PH 7.36 (7.30-7.42)
[2019-09-21 22:43] LABS: INTERNATIONAL RATION (INR) 1.29; PROTHROMBIN TIME 16.2 SEC (11.4-15.4)
[2019-09-21] MEDS ORDERED: ONDANSETRON HCL INJ/PF 4 MG/2 ML SDV IV ONE (22:50)
[2019-09-21] MEDS ORDERED: HYDROMORPHONE HCL INJ/PF 2 MG/ML AMPULE IV ONE (22:50)
[2019-09-21 22:51] LABS: ALBUMIN 3.5 g/dL (3.5-5.0); ALKALINE PHOSPHATASE 415 U/L (38-126); ANION GAP 16 (5-19); ASPARTATE AMINO TRANSFERASE 28 U/L (17-59); BILIRUBIN,DIRECT 1.2 mg/dL (0.0-0.4); BLOOD UREA NITROGEN 6 mg/dL (7-20); CALCIUM 8.3 mg/dL (8.4-10.2); CARBON DIOXIDE 17 mmol/L (22-30); CHLORIDE 99 mmol/L (98-107); GLUCOSE 148 mg/dL (75-110); POTASSIUM 3.5 mmol/L (3.6-5.0); TOTAL PROTEIN 7.8 g/dL (6.3-8.2)
[2019-09-21] MEDS ORDERED: CEFEPIME 2 GM/D5W RTU 2 GM/50 ML RTUPB IV ONE (22:58)
--- NOTE | 2019-09-21 23:00 | RADIOLOGY REPORT (SQ) ---
XR CHEST 1 VIEW EXAM DATE: 09/21/2019 10:16 PM CDT HISTORY: Possible sepsis. COMPARISON: Radiographs from earlier the same day. FINDINGS: The heart size is within normal limits. There is no pulmonary vascular congestion. No consolidation, pleural effusion, or pneumothorax is seen. IMPRESSION: No evidence of acute cardiopulmonary disease.
[2019-09-22] MEDS ORDERED: HYDROMORPHONE HCL INJ/PF 2 MG/ML AMPULE IV ONE (02:45)
[2019-09-22] MEDS ORDERED: NORMAL SALINE 1000 ML 1,000 ML IV ONE (02:45)
--- NOTE | 2019-09-22 02:52 | RADIOLOGY REPORT (SQ) ---
EXAM DESCRIPTION: CT ABDOMEN PELVIS WITH IV CONTRAST COMPLETED DATE/TME: 09/21/2019 00:00 CLINICAL HISTORY: 34 years Male, RIGHT UPPER QUADRANT PAIN Comparison:Apr 18 2019, November 24, 2018 Technique: No IV contrast. Oral contrast only. This exam was performed according to our departmental dose-optimization program, which includes automated exposure control, adjustment of the mA and/or kV according to patient size and/or use of iterative reconstruction technique. [facility]: Dose Right [facility]: CareDose [facility]: Dose Right [facility]: Teradose 4D [facility]: [employer] LIMITATIONS: None Findings: Atelectasis or scar. Severe splenomegaly, interval worsening. Heterogeneous attenuation of the liver and 24 cm hepatomegaly indicative of a diffuse hepatic disease process. Similar appearance on prior exam from April 2019. Differential diagnosis includes malignancy. Moderate chronic lymphadenopathy of the upper mid abdomen including periceliac perigastric nodes. Minimal pericholecystic fluid, chronic. No pneumoperitoneum. Normal appendix. No bowel obstruction. No hydronephrosis or hydroureter. No renal/ureteral stone. No evidence of abdominal aortic aneurysm. No gross evidence of thecal sac/cord or nerve root compression. Inferior thorax, pancreas, adrenals, renal system, gastrointestinal tract, pelvic organs, vasculature, and musculoskeleton appear otherwise unremarkable. IMPRESSION: 1. Increased severe hepatosplenomegaly and diffuse hepatic process compared with prior CT from April 2019. 2. Minimal pericholecystic fluid, chronic. 3. Moderate abdominal lymphadenopathy.
--- NOTE | 2019-09-22 03:45 | ER Document Report ---
Entered by MAXX VALIENTE SCRIBE 09/22/19 0328 Acting as scribe for:EDWIGE CORRAL IV, MD ED General - General Chief Complaint: Abdominal Pain Stated Complaint: POSSIBLE SEPSIS Time Seen by Provider: 09/21/19 22:14 Information source: Patient Notes: This 34-year-old male with a history of sepsis, hepatitis C, alcoholism and IV drug abuse presents to the emergency department after getting a call from the [facility] laboratory asking the patient to return to the emerge ncy department for a sepsis work-up. Patient was seen in the emergency department last night with sharp abdominal pain, nausea, cough and fever. Patient denied vomiting, throat pain and congestion. Patient was discharged. Patient was called and told that his blood cultures resulted positive for Stap hylococcus Aureus and Gram Positive Cocci. Patient returned to the emergency department on these orders. TRAVEL OUTSIDE OF THE [place] IN LAST 30 DAYS: No - Related Data Allergies/Adverse Reactions: carisoprodol [From Soma] Allergy (Verified 07/04/19 07:37) Sulfa (Sulfonamide Antibiotics) Allergy (Verified 07/04/19 07:37) Past Medical History - General Information source: Patient - Social History Smoking Status: Current Every Day Smoker Cigarette use (# per day): Yes Chew tobacco use (# tins/day): No Frequency of alcohol use: Heavy Family History: Reviewed & Not Pertinent, CAD, CVA, Hyperlipidemia, Hypertension, Malignancy, Thyroid Disfunction Patient has suicidal ideation: No Patient has homicidal ideation: No - Past Medical History Cardiac Medical History: Reports: Hx Hypercholesterolemia, Hx Hypertension Pulmonary Medical History: Reports: Hx Bronchitis Neurological Medical History: Reports: Hx Cerebrovascular Accident - States he has had a TIA GI Medical History: Reports: Hx Cirrhosis, Hx Gastritis, Hx Hepatitis - Hepatitis-C, Hx Ulcer, Hx Endoscopy Musculoskeletal Medical History: Reports Hx Arthritis, Reports Hx Gout, Reports Hx Musculoskeletal Deformity, Reports Hx Musculoskeletal Trauma Psychiatric Medical History: Reports: Hx Anxiety, Hx Bipolar Disorder, Hx Depression, Hx Post Traumatic Stress Disorder Traumatic Medical History: Reports: Hx Fractures - Right hand Infectious Medical History: Reports: Hx Hepatitis - Hepatitis-C Past Surgical History: Reports: Hx Orthopedic Surgery - R hand - Immunizations Immunizations up to date: Yes Hx Diphtheria, Pertussis, Tetanus Vaccination: Yes Review of Systems - Review of Systems Constitutional: See HPI, Fever EENT: See HPI. denies: Nose congestion, Throat pain Cardiovascular: No symptoms reported Respiratory: See HPI, Cough Gastrointestinal: See HPI, Abdominal pain, Nausea. denies: Vomiting Genitourinary: No symptoms reported Male Genitourinary: No symptoms reported Musculoskeletal: No symptoms reported Skin: No symptoms reported Hematologic/Lymphatic: No symptoms reported Neurological/Psychological: No symptoms reported -: Yes All other systems reviewed and negative Physical Exam - Vital signs Vitals: Resp Pulse Ox 21 H 98 09/21/19 21:56 09/21/19 21:56 - Notes Notes: Physical Exam: General: Alert, appears well. HEENT: Normocephalic. Atraumatic. PERRL. Extraocular movements intact. Oropharynx clear. Neck: Supple. Non-tender. Respiratory: No respiratory distress. Clear and equal breath sounds bilaterally. Cardiovascular: Tachycardic. Abdominal: RUQ tenderness to palpation. No distension. Normal Bowel Sounds. Back: No gross abnormalities. Extremities: Moves all four extremities. Upper extremities: Normal inspection. Normal ROM. Lower extremities: Normal inspection. No edema. Normal ROM. Neurological: Normal cognition. AAOx4. Normal speech. Psychological: Normal affect. Normal Mood. Skin: Warm. Dry. Pale. Course - Vital Signs Vital signs: Temp Pulse Resp BP Pulse Ox 98.5 F 14 91/63 L 95 09/22/19 02:31 09/22/19 03:31 09/22/19 03:31 09/22/19 03:31 - Laboratory Result Diagrams: 09/21/19 22:10 09/21/19 22:10 Laboratory results interpreted by me: 09/21/19 09/21/19 09/21/19 22:10 22:10 22:10 RBC 3.66 L Hgb 11.1 L Hct 32.2 L RDW 15.3 H Plt Count 107 L Lymph % (Auto) 8.9 L Seg Neutrophils % 86.5 H PT 16.2 H Sodium 131.8 L Potassium 3.5 L Carbon Dioxide 17 L BUN 6 L Glucose 148 H Lactic Acid Calcium 8.3 L Total Bilirubin 2.0 H Direct Bilirubin 1.2 H Alkaline Phosphatase 415 H 09/21/19 09/22/19 22:10 01:15 RBC Hgb Hct RDW Plt Count Lymph % (Auto) Seg Neutrophils % PT Sodium Potassium Carbon Dioxide BUN Glucose Lactic Acid 3.7 H 3.9 H Calcium Total Bilirubin Direct Bilirubin Alkaline Phosphatase - EKG Interpretation by Me Additional EKG results interpreted by me: 09/22/19 04:24 EKG obtained on 09/21/2019 at 2203 hrs. was interpreted by this MD. Findings: Sinus tachycardia with a rate of 127, normal axis, P waves proceed QRS complexes, QRS complexes appear narrow, there are no obvious patterns of ST segment elevation or depression present to suggest acute myocardial ischemia or infarction. Impression: Sinus tachycardia with nonspecific ST segments. Critical Care Note - Critical Care Note Total time excluding time spent on procedures (mins): 120 Discharge - Discharge Clinical Impression: Sepsis Qualifiers: Sepsis type: sepsis due to unspecified organism Sepsis acute organ dysfunction status: unspecified Qualified Code(s): A41.9 - Sepsis, unspecified organism Disposition: ADMITTED OBSERVATION Admitting Provider: Stevenson (Hospitalist) Unit Admitted: Telemetry I personally performed the services described in the documentation, reviewed and edited the documentation which was dictated to the scribe in my presence, and it accurately records my words and actions.
[2019-09-22] MEDS ORDERED: NAFCILLIN SODIUM INJ 2 GM VIAL IV PRN (04:49)
[2019-09-22] MEDS ORDERED: NAFCILLIN SODIUM INJ 2 GM VIAL ONE (04:56)
[2019-09-22] MEDS ORDERED: NAFCILLIN SODIUM 2 GM in DEXTROSE 5%-WATER 100 ML IV ONE (05:00)
[2019-09-22] MEDS ORDERED: DIAZEPAM INJ 10 MG/2 ML DISP.SYRIN IV PRN (05:08)
[2019-09-22] MEDS ORDERED: FENTANYL CITRATE INJ/PF 100 MCG/2 ML AMPUL IV PRN (05:08)
[2019-09-22] MEDS ORDERED: MAG HYDROX/AL HYDROX/SIMETH SUSP 30 ML UDCUP PO PRN (05:10)
[2019-09-22] MEDS ORDERED: ONDANSETRON HCL INJ/PF 4 MG/2 ML SDV IV PRN (05:10)
[2019-09-22] MEDS ORDERED: IPRATROPIUM/ALBUTEROL 0.5-2.5 MG/3 ML AMPUL NEB PRN (05:10)
[2019-09-22] MEDS: NORMAL SALINE 1000 ML 1,000 ML IV PRN ×2 (05:24→07:29)
--- NOTE | 2019-09-22 05:31 | PDOC H&P ---
History of Present Illness Admission Date/PCP: 09/22/19 04:30 Patient complains of: Thoracic spine pain, right upper quadrant pain, fever History of Present Illness: RAMBO MARTINEZ is a 34 year old male with a past medical history of bipolar disorder, current IV drug use, hepatitis C, alcoholism, recurrent pancreatitis and mesenteric adenitis. He returns the emergency department with staph aureus positive blood culture and fever following evaluation with unremarkable work-up including HIDA scan. He complains of thoracic spine pain, right upper quadrant pain and fever. He denies headache or chest pain. He denies history of endocarditis. Past Medical History Cardiac Medical History: Reports: Hyperlipidema, Hypertension Pulmonary Medical History: Reports: Bronchitis Neurological Medical History: Denies: Seizures GI Medical History: Reports: Cirrhosis, Hepatitis - Hepatitis-C Musculoskeltal Medical History: Reports: Arthritis, Gout Psychiatric Medical History: Reports: Alcohol Dependency, Bipolar Disorder, Depression, Post Traumatic Stress Disorder, Substance Abuse, Tobacco Dependency Past Surgical History Past Surgical History: Reports: Orthopedic Surgery - R hand Social History Information Source: Patient Smoking Status: Current Every Day Smoker Frequency of Alcohol Use: Heavy - 12 pack or half gallon of whiskey per day Hx Recreational Drug Use: Yes Drugs: Cocaine, Heroin, Marijuana, Other Hx Prescription Drug Abuse: Yes - Advance Directive Resuscitation Status: Full Code Family History Family History: CAD, CVA, Hyperlipidemia, Hypertension, Malignancy, Thyroid Disfunction Parental Family History Reviewed: Yes Children Family History Reviewed: Yes Sibling(s) Family History Reviewed.: Yes Medication/Allergy Home Medications: Albuterol Sulfate [Proair HFA Inhalation Aerosol 8.5 gm MDI] 2 puff IH Q4H PRN #1 mdi 06/15/19 Ondansetron [Zofran Odt 4 mg Tablet] 1 - 2 tab PO Q4HP PRN #10 tab.rapdis 07/04/19 Dicyclomine HCl [Bentyl 20 mg Tablet] 20 mg PO QID PRN #12 tablet 09/21/19 Naproxen [Naprosyn 250 Nmg Tablet] 1 tab PO BID #14 tablet 09/21/19 Allergies/Adverse Reactions: carisoprodol [From Soma] Allergy (Verified 07/04/19 07:37) Sulfa (Sulfonamide Antibiotics) Allergy (Verified 07/04/19 07:37) Review of Systems Constitutional: PRESENT: as per HPI, anorexia, chills, fatigue, fever(s), night sweats, weakness Eyes: ABSENT: visual disturbances Ears: ABSENT: hearing changes Cardiovascular: PRESENT: dyspnea on exertion, palpitations. ABSENT: chest pain, edema, orthropnea Respiratory: ABSENT: cough, hemoptysis Gastrointestinal: PRESENT: as per HPI, abdominal pain, bloating, nausea. ABSENT: melena Genitourinary: ABSENT: dysuria, hematuria Musculoskeletal: PRESENT: as per HPI, back pain. ABSENT: joint swelling Integumentary: PRESENT: other - Bilateral needle tracking to the neck. ABSENT: rash, wounds Neurological: ABSENT: abnormal gait, abnormal speech, confusion, dizziness, focal weakness, syncope Psychiatric: ABSENT: anxiety, depression, homidical ideation, suicidal ideation Endocrine: ABSENT: cold intolerance, heat intolerance, polydipsia, polyuria Hematologic/Lymphatic: ABSENT: easy bleeding, easy bruising Physical Exam Vital Signs: Temp Pulse Resp BP Pulse Ox 98.5 F 14 91/63 L 95 09/22/19 02:31 09/22/19 03:31 09/22/19 03:31 09/22/19 03:31 Intake & Output 09/20/19 09/21/19 09/22/19 11:59 11:59 11:59 Intake Total 3500 Balance 3500 Weight 81.647 kg General appearance: PRESENT: cooperative, disheveled, mild distress, well- developed, well-nourished Head exam: PRESENT: atraumatic, normocephalic Eye exam: PRESENT: conjunctiva pink, EOMI, PERRLA, scleral icterus Ear exam: PRESENT: normal external ear exam Mouth exam: PRESENT: moist, tongue midline Neck exam: PRESENT: other - Bilateral needle track scarring. ABSENT: carotid bruit, JVD, lymphadenopathy, thyromegaly Respiratory exam: PRESENT: clear to auscultation jason, symmetrical. ABSENT: rales, rhonchi, wheezes Cardiovascular exam: PRESENT: RRR, +S1, +S2, systolic murmur - Tricuspid murmur Pulses: PRESENT: normal dorsalis pedis pul Vascular exam: PRESENT: normal capillary refill GI/Abdominal exam: PRESENT: diminished bowel sounds, distended, hypoactive bowel sounds, mass - Enlarged hepatic mass, normal bowel sounds, soft, tenderness. ABSENT: guarding, organolmegaly, rebound Rectal exam: PRESENT: deferred Extremities exam: PRESENT: full ROM. ABSENT: calf tenderness, clubbing, pedal edema Neurological exam: PRESENT: alert, awake, oriented to person, oriented to place, oriented to time, oriented to situation, CN II-XII grossly intact. ABSENT: motor sensory deficit Psychiatric exam: PRESENT: appropriate affect, normal mood. ABSENT: homicidal ideation, suicidal ideation Skin exam: PRESENT: dry, intact, warm. ABSENT: cyanosis, rash Results Laboratory Results: 09/21/19 22:10 09/21/19 22:10 09/21/19 09/21/19 09/21/19 22:10 22:10 22:10 WBC 5.1 RBC 3.66 L Hgb 11.1 L Hct 32.2 L MCV 88 MCH 30.3 MCHC 34.5 RDW 15.3 H Plt Count 107 L Seg Neutrophils % 86.5 H VBG pH 7.36 VBG pCO2 40.4 VBG HCO3 22.1 VBG Base Excess -3.1 Sodium 131.8 L Potassium 3.5 L Chloride 99 Carbon Dioxide 17 L Anion Gap 16 BUN 6 L Creatinine 0.59 Est GFR ( Amer) > 60 Glucose 148 H Lactic Acid Calcium 8.3 L Total Bilirubin 2.0 H AST 28 Alkaline Phosphatase 415 H Total Protein 7.8 Albumin 3.5 Lipase 09/21/19 09/21/19 09/22/19 22:10 22:10 01:15 WBC RBC Hgb Hct MCV MCH MCHC RDW Plt Count Seg Neutrophils % VBG pH VBG pCO2 VBG HCO3 VBG Base Excess Sodium Potassium Chloride Carbon Dioxide Anion Gap BUN Creatinine Est GFR ( Amer) Glucose Lactic Acid 3.7 H 3.9 H Calcium Total Bilirubin AST Alkaline Phosphatase Total Protein Albumin Lipase 29.0 Impressions: Abdomen/Pelvis CT 09/21/19 00:00 IMPRESSION: 1. Increased severe hepatosplenomegaly and diffuse hepatic process compared with prior CT from April 2019. 2. Minimal pericholecystic fluid, chronic. 3. Moderate abdominal lymphadenopathy. Chest X-Ray 09/21/19 22:16 IMPRESSION: No evidence of acute cardiopulmonary disease. Assessment and Plan - Diagnosis (1) Thoracic spine pain Is this a current diagnosis for this admission?: Yes Plan: Follow-up MRI evaluation of spinal epidural abscess as possible source of bacteremia with IV drug use (2) Sepsis Qualifiers: Sepsis type: sepsis due to unspecified organism Sepsis acute organ dysfunction status: unspecified Qualified Code(s): A41.9 - Sepsis, unspecified organism Is this a current diagnosis for this admission?: Yes Plan: With staph aureus bacteremia, complicated by IV drug use therefore endocarditis versus spinal epidural abscess, Empiric treatment with nafcillin initiated. IV fluid challenge,follow-up 2D echocardiogram and MRI thoracic spine. (3) Alcohol dependence with withdrawal Qualifiers: Is this a current diagnosis for this admission?: Yes Plan: Thiamine, scheduled Valium, as needed Ativan ordered. (4) Bipolar disorder Is this a current diagnosis for this admission?: Yes Plan: Supportive care, consider Abilify. (5) Cirrhosis Qualifiers: Is this a current diagnosis for this admission?: Yes Plan: Secondary to hepatitis C complicated by alcoholism. (7) Heroin abuse Is this a current diagnosis for this admission?: Yes Plan: Supportive care, narcotics as needed withdrawal (8) IV drug user Is this a current diagnosis for this admission?: Yes Plan: Supportive care, follow-up MRI thoracic spine, echocardiogram and mental health consult.
[2019-09-22] MEDS ORDERED: PHYTONADIONE INJ 10 MG/1 ML AMPULE SUBCUT ONE (05:32)
[2019-09-22] MEDS: HEPARIN SOD (PORCINE) 5,000 UNIT/ML 1 ML VIAL SUBCUT SCH ×3 (07:27→21:21)
[2019-09-22] MEDS: LORAZEPAM INJ 2 MG/1 ML VIAL IV PRN ×2 (07:42→12:41)
[2019-09-22] MEDS: DOCUSATE SODIUM 100 MG CAPSULE PO SCH ×2 (09:23→17:36)
[2019-09-22] MEDS: THIAMINE HCL 100 MG, FOLIC ACID 1 MG in NORMAL SALINE 250 ML IV SCH (10:00)
[2019-09-22] MEDS ORDERED: NAFCILLIN SODIUM 2 GM in DEXTROSE 5%-WATER 100 ML IV SCH (10:00)
[2019-09-22] MEDS ORDERED: VANCOMYCIN HCL INJ 1000 MG VIAL IV SCH (10:00)
--- NOTE | 2019-09-22 10:08 | EKG REPORT ---
SEVERITY:- ABNORMAL ECG - SINUS TACHYCARDIA BORDERLINE LEFT AXIS DEVIATION CONSIDER ANTERIOR INFARCT BORDERLINE T WAVE ABNORMALITIES : Confirmed by: Ching Martin MD 22-Sep-2019 10:07:29
[2019-09-22] MEDS: VANCOMYCIN HCL 1,250 MG in DEXTROSE 5%-WATER 250 ML IV SCH ×2 (10:30→18:09)
[2019-09-22] MEDS ORDERED: ACETAMINOPHEN 325 MG TABLET PO PRN (13:10)
--- NOTE | 2019-09-22 13:27 | RADIOLOGY REPORT (SQ) ---
EXAM DESCRIPTION: MRI THORACIC SPINE WITHOUT IMAGES COMPLETED DATE/TIME: 09/22/2019 12:31 pm REASON FOR STUDY: IVDU c bactermia T4pain, sub-epidural abscess? COMPARISON: None. TECHNIQUE: Sagittal and Axial imaging includes T1, T2, STIR and gradient echo sequences. LIMITATIONS: Excessive motion. FINDINGS: No evidence of epidural abscess. No evidence of acute compression fracture. Bulging disc at multiple levels in the mid and lower thoracic spine. No evidence of acute disc herniation. No p araspinal mass. IMPRESSION: No evidence of epidural abscess. TECHNICAL DOCUMENTATION: JOB ID: [id number] 2010 [employer]- All Rights Reserved Reading location - IP/workstation name: [email or web address]
[2019-09-22] MEDS: DIAZEPAM 5 MG TABLET PO SCH ×2 (14:12→21:20)
[2019-09-22] MEDS: TRAMADOL HCL 50 MG TABLET PO PRN ×2 (14:12→20:10)
[2019-09-22] MEDS: MORPHINE SULFATE 10 MG/ML INJ IV PRN ×2 (15:47→21:20)
[2019-09-23] MEDS: MORPHINE SULFATE 10 MG/ML INJ IV PRN ×5 (01:39→20:45)
[2019-09-23] MEDS: VANCOMYCIN HCL 1,250 MG in DEXTROSE 5%-WATER 250 ML IV SCH ×3 (01:39→17:13)
[2019-09-23] MEDS: DIAZEPAM 5 MG TABLET PO SCH ×3 (05:15→21:05)
[2019-09-23] MEDS: HEPARIN SOD (PORCINE) 5,000 UNIT/ML 1 ML VIAL SUBCUT SCH ×3 (05:17→21:03)
[2019-09-23 06:16] LABS: ABSOLUTE LYMPHOCYTES (AUTO) 0.9 10^3/uL (0.5-4.7); ABSOLUTE MONOCYTES (AUTO) 0.2 10^3/uL (0.1-1.4); ABSOLUTE NEUT (AUTO) 1.5 10^3/uL (1.7-8.2); BASOPHILS % (AUTO) 0.7 % (0-2); EOSINOPHILS % (AUTO) 1.8 % (0-6); HEMATOCRIT 29.5 % (37.9-51.0); HEMOGLOBIN 10.1 g/dL (13.5-17.0); LYMPHOCYTES % (AUTO) 35.4 % (13-45); MEAN CORPUSCULAR HGB CONC 34.4 g/dL (32.0-36.0); MEAN CORPUSCULAR VOLUME 87 fl (80-97); MONOCYTES % (AUTO) 5.8 % (3-13); RED BLOOD COUNT 3.38 10^6/uL (4.35-5.55); RED CELL DISTRIBUTION WIDTH 15.6 % (11.5-14.0); SEGMENTED NEUTROPHILS % (AUTO) 56.3 % (42-78); TOTAL CELLS COUNTED % (AUTO) 100 %
[2019-09-23 06:34] LABS: ALBUMIN 2.7 g/dL (3.5-5.0); ALKALINE PHOSPHATASE 364 U/L (38-126); ANION GAP 6 (5-19); ASPARTATE AMINO TRANSFERASE 26 U/L (17-59); BILIRUBIN,DIRECT 0.8 mg/dL (0.0-0.4); BLOOD UREA NITROGEN 5 mg/dL (7-20); CARBON DIOXIDE 21 mmol/L (22-30); CHLORIDE 109 mmol/L (98-107); GLUCOSE 84 mg/dL (75-110); POTASSIUM 3.6 mmol/L (3.6-5.0); TOTAL PROTEIN 6.6 g/dL (6.3-8.2)
[2019-09-23 06:35] LABS: PLATELET COUNT 89 10^3/uL (150-450); WHITE BLOOD COUNT 2.7 10^3/uL (4.0-10.5)
[2019-09-23] MEDS: TRAMADOL HCL 50 MG TABLET PO PRN (07:46)
[2019-09-23] MEDS: DOCUSATE SODIUM 100 MG CAPSULE PO SCH ×2 (09:25→17:08)
[2019-09-23] MEDS: THIAMINE HCL 100 MG, FOLIC ACID 1 MG in NORMAL SALINE 250 ML IV SCH (09:30)
--- NOTE | 2019-09-23 09:33 | PDOC PROGRESS REPORT ---
Subjective Progress Note for:: 09/23/19 Subjective:: Patient still complaining of abdominal pain mostly in his epigastric and upper abdomen radiating to the back. Denies any nausea or vomiting. States occasionally feels anxious. States he would like his Ativan. Denies any diarrhea. Had a bowel movement last night. Denies any issues with bowel movements. Reason For Visit: BACTEREMIA, SEPSIS, MESENTERIC ADENITIS, HEP C, Physical Exam Vital Signs: Temp Pulse Resp BP Pulse Ox 98.0 F 88 20 118/80 94 09/23/19 07:31 09/23/19 07:31 09/23/19 07:31 09/23/19 07:31 09/23/19 07:31 Intake & Output 09/22/19 09/23/19 09/24/19 06:59 06:59 06:59 Intake Total 4500 2717.2 Output Total 0 Balance 4500 2717.2 Weight 81.647 kg 83.4 kg General appearance: PRESENT: no acute distress, cooperative Neck exam: ABSENT: JVD Respiratory exam: PRESENT: clear to auscultation jason, tachypnea, wheezes. ABSENT: unlabored Cardiovascular exam: PRESENT: RRR, +S1, +S2. ABSENT: tachycardia GI/Abdominal exam: PRESENT: distended, guarding - Some voluntary guarding, organolmegaly, soft, tenderness - In his upper abdomen but mostly his epigastric and his right upper quadrant. ABSENT: firm, rebound, rigid Extremities exam: ABSENT: calf tenderness Neurological exam: PRESENT: alert, awake, oriented to person, oriented to place, oriented to time, oriented to situation Results Laboratory Results: 09/23/19 05:24 09/23/19 05:24 09/23/19 09/23/19 05:24 05:24 WBC 2.7 L D RBC 3.38 L Hgb 10.1 L Hct 29.5 L MCV 87 MCH 30.0 MCHC 34.4 RDW 15.6 H Plt Count 89 L Seg Neutrophils % 56.3 Sodium 136.2 L Potassium 3.6 Chloride 109 H Carbon Dioxide 21 L Anion Gap 6 BUN 5 L Creatinine 0.56 Est GFR ( Amer) > 60 Glucose 84 Calcium 8.0 L Total Bilirubin 1.0 AST 26 Alkaline Phosphatase 364 H Total Protein 6.6 Albumin 2.7 L 09/21/19 22:10 Blood Blood Culture (PCR) - Final Staphylococcus Aureus 09/21/19 23:40 Blood Blood Culture (PCR) - Final Staphylococcus Aureus Impressions: Abdomen/Pelvis CT 09/21/19 00:00 IMPRESSION: 1. Increased severe hepatosplenomegaly and diffuse hepatic process compared with prior CT from April 2019. 2. Minimal pericholecystic fluid, chronic. 3. Moderate abdominal lymphadenopathy. Chest X-Ray 09/21/19 22:16 IMPRESSION: No evidence of acute cardiopulmonary disease. Thoracic Spine MRI 09/22/19 00:00 IMPRESSION: No evidence of epidural abscess. Assessment and Plan - Diagnosis (1) Staphylococcus aureus bacteremia with sepsis Is this a current diagnosis for this admission?: Yes Plan: Secondary to IV drug abuse. Check TTE to evaluate for endocarditis. Vancomycin. We will repeat blood cultures tomorrow. MRI of thoracic spine does not show any evidence of epidural abscess. (2) Abdominal pain Qualifiers: Abdominal location: upper abdomen, unspecified Qualified Code(s): R10.10 - Upper abdominal pain, unspecified Is this a current diagnosis for this admission?: Yes Plan: Possibly this may be secondary to patient's chronic severe hepatosplenomegaly possibly fatty infiltration from alcoholism or chronic hepatitis C. Patient is a chronic alcohol abuser with cirrhosis. Admission record documents history of hepatitis C. Abdominal CT scan does not show any significant pancreatic disease or calcifications. Lipase is normal. Abdominal ultrasound and HIDA scan revealed no evidence of biliary tract disease and no evidence of cholecystitis. Check hepatitis panel. Liver enzymes do not show significant elevation. Pain control. Supportive care. (3) Alcohol dependence Qualifiers: Substance use status: unspecified alcohol-induced disorder Qualified Code(s): F10.29 - Alcohol dependence with unspecified alcohol-induced disorder Is this a current diagnosis for this admission?: Yes Plan: High risk of withdrawal as he is a daily drinker. Monitor CIWA every 4 hours. Standing Valium. Ativan as needed for elevated CIWA scores. (4) Cirrhosis Qualifiers: Is this a current diagnosis for this admission?: Yes Plan: Secondary to hepatitis C complicated by alcoholism. Does not appear to be decompensated. (5) Heroin abuse Is this a current diagnosis for this admission?: Yes Plan: History of IV drug abuse. Supportive care, monitor for withdrawal. - Time Time Spent with patient: 15-24 minutes
[2019-09-23] MEDS: LORAZEPAM INJ 2 MG/1 ML VIAL IV PRN (11:46)
[2019-09-23 17:47] LABS: VANCOMYCIN,TROUGH 17.3 ug/mL (5.0-20.0)
[2019-09-24] MEDS: LORAZEPAM INJ 2 MG/1 ML VIAL IV PRN ×5 (00:24→20:04)
[2019-09-24] MEDS: MORPHINE SULFATE 10 MG/ML INJ IV PRN ×5 (00:50→23:50)
[2019-09-24] MEDS ORDERED: VANCOMYCIN HCL INJ 1000 MG VIAL ONE (02:16)
[2019-09-24] MEDS ORDERED: VANCOMYCIN HCL INJ 500 MG VIAL ONE (02:16)
[2019-09-24] MEDS: VANCOMYCIN HCL 1,250 MG in DEXTROSE 5%-WATER 250 ML IV SCH ×3 (02:47→17:47)
[2019-09-24] MEDS: HEPARIN SOD (PORCINE) 5,000 UNIT/ML 1 ML VIAL SUBCUT SCH ×3 (05:17→21:01)
[2019-09-24] MEDS: DIAZEPAM 5 MG TABLET PO SCH ×3 (05:38→21:01)
[2019-09-24 06:16] LABS: ABSOLUTE EOSINOPHILS # (AUTO) 0.1 10^3/uL (0.0-0.6); ABSOLUTE LYMPHOCYTES (AUTO) 1.5 10^3/uL (0.5-4.7); ABSOLUTE MONOCYTES (AUTO) 0.2 10^3/uL (0.1-1.4); ABSOLUTE NEUT (AUTO) 1.8 10^3/uL (1.7-8.2); BASOPHILS % (AUTO) 0.7 % (0-2); EOSINOPHILS % (AUTO) 2.1 % (0-6); HEMATOCRIT 31.7 % (37.9-51.0); HEMOGLOBIN 10.7 g/dL (13.5-17.0); LYMPHOCYTES % (AUTO) 42.3 % (13-45); MEAN CORPUSCULAR HEMOGLOBIN 30.3 pg (27.0-33.4); MEAN CORPUSCULAR HGB CONC 33.9 g/dL (32.0-36.0); MEAN CORPUSCULAR VOLUME 89 fl (80-97); MONOCYTES % (AUTO) 4.6 % (3-13); RED BLOOD COUNT 3.54 10^6/uL (4.35-5.55); SEGMENTED NEUTROPHILS % (AUTO) 50.3 % (42-78); TOTAL CELLS COUNTED % (AUTO) 100 %; WHITE BLOOD COUNT 3.5 10^3/uL (4.0-10.5)
[2019-09-24 06:43] LABS: ALBUMIN 2.7 g/dL (3.5-5.0); ALKALINE PHOSPHATASE 356 U/L (38-126); ANION GAP 7 (5-19); ASPARTATE AMINO TRANSFERASE 27 U/L (17-59); BILIRUBIN,DIRECT 0.4 mg/dL (0.0-0.4); BILIRUBIN,TOTAL 0.8 mg/dL (0.2-1.3); BLOOD UREA NITROGEN 3 mg/dL (7-20); CALCIUM 8.3 mg/dL (8.4-10.2); CARBON DIOXIDE 21 mmol/L (22-30); CHLORIDE 111 mmol/L (98-107); GLUCOSE 83 mg/dL (75-110); POTASSIUM 3.6 mmol/L (3.6-5.0); TOTAL PROTEIN 6.9 g/dL (6.3-8.2)
[2019-09-24 06:51] LABS: PLATELET COUNT 98 10^3/uL (150-450)
[2019-09-24] MEDS: DOCUSATE SODIUM 100 MG CAPSULE PO SCH ×2 (09:23→17:39)
[2019-09-24] MEDS: THIAMINE HCL 100 MG, FOLIC ACID 1 MG in NORMAL SALINE 250 ML IV SCH (09:38)
[2019-09-24] MEDS: TRAMADOL HCL 50 MG TABLET PO PRN ×2 (12:51→17:46)
[2019-09-24 14:36] LABS: HEPATITS B SURFACE ANTIGEN Negative (Negative)
[2019-09-24 15:13] LABS: HEPATITIS C VIRUS ANTIBODY >11.0 s/co ratio (0.0-0.9)
--- NOTE | 2019-09-24 15:57 | PDOC PROGRESS REPORT ---
Subjective Progress Note for:: 09/24/19 Subjective:: Patient still having some abdominal pain. Otherwise feels well. Denies any shortness of breath or cough. Reason For Visit: BACTEREMIA, SEPSIS, MESENTERIC ADENITIS, HEP C, Physical Exam Vital Signs: Temp Pulse Resp BP Pulse Ox 98.1 F 83 14 93/76 L 91 L 09/24/19 11:33 09/24/19 11:33 09/24/19 11:33 09/24/19 11:33 09/24/19 11:33 Intake & Output 09/23/19 09/24/19 09/25/19 06:59 06:59 06:59 Intake Total 2717.2 2078.2 501.2 Output Total 0 Balance 2717.2 2078.2 501.2 Weight 83.4 kg 81.1 kg General appearance: PRESENT: no acute distress, cooperative Neck exam: ABSENT: JVD Respiratory exam: PRESENT: clear to auscultation jason, unlabored. ABSENT: tachypnea, wheezes Cardiovascular exam: PRESENT: RRR, +S1, +S2. ABSENT: tachycardia GI/Abdominal exam: PRESENT: soft. ABSENT: rebound, rigid, tenderness Neurological exam: PRESENT: alert, awake, oriented to person, oriented to place, oriented to time, oriented to situation Results Laboratory Results: 09/24/19 05:35 09/24/19 05:35 09/23/19 09/24/19 09/24/19 17:12 05:35 05:35 WBC 3.5 L RBC 3.54 L Hgb 10.7 L Hct 31.7 L MCV 89 MCH 30.3 MCHC 33.9 RDW 16.0 H Plt Count 98 L Seg Neutrophils % 50.3 Sodium 138.6 Potassium 3.6 Chloride 111 H Carbon Dioxide 21 L Anion Gap 7 BUN 3 L Creatinine 0.60 0.54 Est GFR ( Amer) > 60 > 60 Glucose 83 Calcium 8.3 L Total Bilirubin 0.8 AST 27 Alkaline Phosphatase 356 H Total Protein 6.9 Albumin 2.7 L 09/21/19 22:10 Blood Blood Culture (PCR) - Final Staphylococcus Aureus 09/21/19 22:10 Blood Blood Culture - Final Staphylococcus Aureus 09/21/19 23:40 Blood Blood Culture (PCR) - Final Staphylococcus Aureus 09/21/19 23:40 Blood Blood Culture - Final Staphylococcus Aureus Impressions: Abdomen/Pelvis CT 09/21/19 00:00 IMPRESSION: 1. Increased severe hepatosplenomegaly and diffuse hepatic process compared with prior CT from April 2019. 2. Minimal pericholecystic fluid, chronic. 3. Moderate abdominal lymphadenopathy. Chest X-Ray 09/21/19 22:16 IMPRESSION: No evidence of acute cardiopulmonary disease. Thoracic Spine MRI 09/22/19 00:00 IMPRESSION: No evidence of epidural abscess. Assessment and Plan - Diagnosis (1) Staphylococcus aureus bacteremia with sepsis Is this a current diagnosis for this admission?: Yes Plan: Secondary to IV drug abuse. MRI of thoracic spine does not show any evidence of epidural abscess. Awaiting results of TTE Continue vancomycin Follow-up repeat blood culture results (2) Abdominal pain Qualifiers: Abdominal location: upper abdomen, unspecified Qualified Code(s): R10.10 - Upper abdominal pain, unspecified Is this a current diagnosis for this admission?: Yes Plan: Possibly this may be secondary to patient's chronic severe hepatosplenomegaly possibly fatty infiltration and chronic hepatitis C. Abdominal CT scan does not show any significant pancreatic disease or calcifications. Lipase is normal. Abdominal ultrasound and HIDA scan revealed no evidence of biliary tract disease and no evidence of cholecystitis. Check hepatitis panel. Liver enzymes do not show significant elevation. Pain control. Supportive care. (3) Hepatitis C virus infection Qualifiers: Viral hepatitis chronicity: chronic Hepatic coma status: without hepatic coma Qualified Code(s): B18.2 - Chronic viral hepatitis C Is this a current diagnosis for this admission?: Yes Plan: Will need referral for treatment upon discharge. Check HCV RNA genotype. Cirrhotic. (4) Alcohol dependence Qualifiers: Substance use status: unspecified alcohol-induced disorder Qualified Code(s): F10.29 - Alcohol dependence with unspecified alcohol-induced disorder Is this a current diagnosis for this admission?: Yes Plan: High risk of withdrawal as he is a daily drinker. Monitor CIWA every 4 hours. Standing Valium. Ativan as needed for elevated CIWA scores. (5) Cirrhosis Qualifiers: Is this a current diagnosis for this admission?: Yes Plan: Secondary to hepatitis C complicated by alcoholism. Does not appear to be decompensated. (6) Heroin abuse Is this a current diagnosis for this admission?: Yes Plan: History of IV drug abuse. Supportive care, monitor for withdrawal. HIV nega tive. Hepatitis C and hepatitis B negative. - Time Time Spent with patient: Less than 15 minutes
--- NOTE | 2019-09-24 16:51 | CDI QUERY ---
CDI Query CDI Review: Dear Provider: To better reflect your patients severity of illness, morbidity, and resource utilization Please specify and document in the Progress Notes and Discharge Summary if you are monitoring / treating / evaluating any of the following conditions: Query Clinical indicators Pancytopenia secondary to drug use Pancytopenia Unable to determine Other Per H&P: 34 year old male with a past medical history of bipolar disorder, current IV drug use, hepatitis C, alcoholism, recurrent pancreatitis and mesenteric adenitis. He returns the emergency department with staph aureus positive blood culture Labs: WBC 2.7 L D 3.5 L RBC 3.38 L 3.54 L Hgb 10.1 L 10.7 L Hct 29.5 L 31.7 L Plt Count 89 L 98 L The terms probable, suspected, likely, possible or still to be ruled out may be used if you are unable to determine the exact nature of a condition. Thank you for your consideration, Clinical Documentation Physician Advisors ASHLEIGH Cat RN, BSN RN Office [phone] Office [phone]
--- NOTE | 2019-09-24 19:00 | XCELERA REPORT ---
[address] [address] Transthoracic Echocardiogram Report Name: RAMBO MARTINEZ Gi Age: 34 yrs Gender: Male : 1985 Patient Status: Inpatient Patient Location: [address] [place] [address] Study Date: 09/24/2019 02:36 PM History: Endocarditis Murmur Height: 68 in Weight: 180 lb BSA: 2.0 m2 Procedure: A complete two-dimensional transthoracic echocardiogram was performed (2D, M-mode, spectral and color flow Doppler). The study was technically difficult with many images being suboptimal in quality. Reason For Study: systolic murmur endocarditis Ordering Physician: EDDIE CASANOVA Performed By: Dandre Bullard Interpretation Summary No vegetation is seen on this exam. CHEMO is more sensitive. Left ventricular systolic function is normal. The Ejection Fraction estimate is 55-60% The right ventricle is normal in size and function. There is a trace amount of mitral regurgitation There is no aortic valve stenosis There is a mild amount of tricuspid regurgitation There is no pericardial effusion. No vegetation is seen on this exam. CHEMO is more sensitive. MMode/2D Measurements & Calculations RVDd: 3.2 cm LVIDd: 4.8 cm FS: 34.6 % Ao root diam: IVSd: 0.82 cm LVIDs: 3.1 cm EDV(Teich): 2.4 cm 108.2 ml Ao root area: LVPWd: 0.78 cm ESV(Teich): 4.5 cm2 39.3 ml LA dimension: EF(Teich): 63.7 % 3.7 cm LVLd ap4: 8.2 cm SV(MOD-sp4): EDV(MOD-sp4): 73.0 ml 113.0 ml LVLs ap4: 6.8 cm ESV(MOD-sp4): 40.0 ml EF(MOD-sp4): 64.6 % Doppler Measurements & Calculations MV E max leonila: MV P1/2t max leonila: Ao V2 max: LV V1 max P.3 cm/sec 117.7 cm/sec 114.9 cm/sec 3.1 mmHg MV A max leonila: MV P1/2t: 75.9 msec Ao max PG: LV V1 max: 74.5 cm/sec MVA(P1/2t): 2.9 cm2 5.3 mmHg 87.5 cm/sec MV E/A: 1.6 MV dec slope: 454.3 cm/sec2 MV dec time: 0.19 sec PA V2 max: PI end-d leonila: TR max leonila: MV P1/2t-pr_phl: 78.0 cm/sec 136.8 cm/sec 269.3 cm/sec 75.9 msec PA max P.4 mmHg TR max P.0 mmHg Left Ventricle The left ventricle is normal in size. There is normal left ventricular wall thickness. Left ventricular systolic function is normal. The Ejection Fraction estimate is 55-60%. The transmitral spectral Doppler flow pattern is normal for age. Doppler measurements suggest normal left ventricular diastolic function. No regional wall motion abnormalities noted. Right Ventricle The right ventricle is normal in size and function. Atria The right atrium is normal. Borderline left atrial enlargement. Mitral Valve The mitral valve is grossly normal. There is no vegetation seen on the mitral valve. There is a trace amount of mitral regurgitation. Aortic Valve The aortic valve is normal in structure and function. The aortic valve is trileaflet. The aortic valve opens well. There is no aortic valvular vegetation. There is no aortic valve stenosis. No aortic regurgitation is present. Tricuspid Valve The tricuspid valve is normal in structure and function. There is no tricuspid valve vegetation. There is a mild amount of tricuspid regurgitation. Doppler findings do not suggest pulmonary hypertension. Pulmonic Valve The pulmonic valve is normal in structure and function. There is no vegetation on the pulmonic valve. There is a trace amount of pulmonic regurgitation. Great Vessels The aortic root is normal size. The IVC is dilated, but has some respiratory collapse suggesting high central venous pressures. Effusions There is no pericardial effusion. Electronically signed by: Tashi chaves 09/24/2019 07:00 PM CC: EDDIE CASANOVA Anil
[2019-09-24] MEDS: MELATONIN 3 MG TABLET PO PRN (21:01)
[2019-09-25] MEDS: LORAZEPAM INJ 2 MG/1 ML VIAL IV PRN ×7 (00:08→22:23)
[2019-09-25] MEDS: VANCOMYCIN HCL 1,250 MG in DEXTROSE 5%-WATER 250 ML IV SCH ×2 (01:39→10:40)
[2019-09-25] MEDS: MORPHINE SULFATE 10 MG/ML INJ IV PRN ×3 (04:33→19:46)
[2019-09-25] MEDS: HEPARIN SOD (PORCINE) 5,000 UNIT/ML 1 ML VIAL SUBCUT SCH ×3 (05:01→22:00)
[2019-09-25] MEDS: DIAZEPAM 5 MG TABLET PO SCH ×3 (05:05→21:12)
[2019-09-25 05:58] LABS: ABSOLUTE EOSINOPHILS # (AUTO) 0.1 10^3/uL (0.0-0.6); ABSOLUTE LYMPHOCYTES (AUTO) 1.1 10^3/uL (0.5-4.7); ABSOLUTE MONOCYTES (AUTO) 0.1 10^3/uL (0.1-1.4); ABSOLUTE NEUT (AUTO) 1.5 10^3/uL (1.7-8.2); BASOPHILS % (AUTO) 1.2 % (0-2); EOSINOPHILS % (AUTO) 2.2 % (0-6); HEMATOCRIT 30.7 % (37.9-51.0); HEMOGLOBIN 10.6 g/dL (13.5-17.0); LYMPHOCYTES % (AUTO) 39.7 % (13-45); MEAN CORPUSCULAR HGB CONC 34.6 g/dL (32.0-36.0); MEAN CORPUSCULAR VOLUME 87 fl (80-97); MONOCYTES % (AUTO) 4.5 % (3-13); PLATELET COUNT 125 10^3/uL (150-450); RED BLOOD COUNT 3.54 10^6/uL (4.35-5.55); RED CELL DISTRIBUTION WIDTH 15.4 % (11.5-14.0); SEGMENTED NEUTROPHILS % (AUTO) 52.4 % (42-78); TOTAL CELLS COUNTED % (AUTO) 100 %; WHITE BLOOD COUNT 2.9 10^3/uL (4.0-10.5)
[2019-09-25] MEDS: TRAMADOL HCL 50 MG TABLET PO PRN ×2 (07:24→21:21)
[2019-09-25] MEDS ORDERED: MORPHINE SULFATE 10 MG/ML INJ IV PRN (08:57)
[2019-09-25] MEDS: DOCUSATE SODIUM 100 MG CAPSULE PO SCH ×2 (09:41→17:03)
[2019-09-25] MEDS: THIAMINE HCL 100 MG, FOLIC ACID 1 MG in NORMAL SALINE 250 ML IV SCH (09:44)
[2019-09-25] MEDS ORDERED: LORAZEPAM 1 MG TABLET PO PRN (12:48)
--- NOTE | 2019-09-25 13:11 | PDOC PROGRESS REPORT ---
Subjective Progress Note for:: 09/25/19 Subjective:: Patient feels well today. Notably he had elevated CIWA scores yesterday and this morning. He does appear fine during our encounter. Patient seems very antsy and will need to leave soon. Unfortunately he will likely not be willing to stay the entire duration of his treatment. Reason For Visit: BACTEREMIA, SEPSIS, MESENTERIC ADENITIS, HEP C, Physical Exam Vital Signs: Temp Pulse Resp BP Pulse Ox 98.3 F 64 16 117/78 94 09/25/19 07:46 09/25/19 07:46 09/25/19 07:46 09/25/19 07:46 09/25/19 07:46 Intake & Output 09/24/19 09/25/19 09/26/19 06:59 06:59 06:59 Intake Total 2078.2 2081.2 251.2 Balance 2078.2 2081.2 251.2 Weight 81.1 kg 79.9 kg General appearance: PRESENT: no acute distress, cooperative Neck exam: ABSENT: JVD Respiratory exam: PRESENT: clear to auscultation jason, unlabored. ABSENT: tachypnea, wheezes Cardiovascular exam: PRESENT: RRR, +S1, +S2. ABSENT: diastolic murmur, systolic murmur, tachycardia GI/Abdominal exam: PRESENT: soft. ABSENT: distended, rebound, rigid, tenderness Neurological exam: PRESENT: alert, awake, oriented to person, oriented to place, oriented to time Results Laboratory Results: 09/25/19 05:46 09/24/19 05:35 09/25/19 05:46 WBC 2.9 L RBC 3.54 L Hgb 10.6 L Hct 30.7 L MCV 87 MCH 30.0 MCHC 34.6 RDW 15.4 H Plt Count 125 L Seg Neutrophils % 52.4 09/21/19 22:10 Blood Blood Culture (PCR) - Final Staphylococcus Aureus 09/21/19 22:10 Blood Blood Culture - Final Staphylococcus Aureus 09/21/19 23:40 Blood Blood Culture (PCR) - Final Staphylococcus Aureus 09/21/19 23:40 Blood Blood Culture - Final Staphylococcus Aureus Impressions: Abdomen/Pelvis CT 09/21/19 00:00 IMPRESSION: 1. Increased severe hepatosplenomegaly and diffuse hepatic process compared with prior CT from April 2019. 2. Minimal pericholecystic fluid, chronic. 3. Moderate abdominal lymphadenopathy. Chest X-Ray 09/21/19 22:16 IMPRESSION: No evidence of acute cardiopulmonary disease. Thoracic Spine MRI 09/22/19 00:00 IMPRESSION: No evidence of epidural abscess. Assessment and Plan - Diagnosis (1) Staphylococcus aureus bacteremia with sepsis Is this a current diagnosis for this admission?: Yes Plan: Secondary to transdermal inoculation from IV drug abuse. MRI of thoracic spine does not show any evidence of epidural abscess. TTE shows no evidence of vegetation. I have discussed with cardiology and apparently TEEs are on hold due to the current pandemic. Antibiotics changed from vancomycin to nafcillin. Will likely need at least 2 weeks of antibiotics from first negative. ID consulted for duration and potentially using p.o. alternative in light of MSSA bacteremia and lack of CHEMO capabilities at this time. (2) Abdominal pain Qualifiers: Abdominal location: upper abdomen, unspecified Qualified Code(s): R10.10 - Upper abdominal pain, unspecified Is this a current diagnosis for this admission?: Yes Plan: Possibly this may be secondary to patient's chronic severe hepatosplenomegaly possibly fatty infiltration and chronic hepatitis C. Abdominal CT scan does not show any significant pancreatic disease or calcifications. Lipase is normal. Abdominal ultrasound and HIDA scan revealed no evidence of biliary tract disease and no evidence of cholecystitis. We will reduce dose of pain meds to discourage dependence. Supportive care. (3) Hepatitis C virus infection Qualifiers: Viral hepatitis chronicity: chronic Hepatic coma status: without hepatic coma Qualified Code(s): B18.2 - Chronic viral hepatitis C Is this a current diagnosis for this admission?: Yes Plan: Hepatitis C antibody positive. Check HCV RNA to see if infection is still present. If so, will need outpatient referral to [facility] for treatment. (4) Alcohol dependence Qualifiers: Substance use status: in withdrawal Qualified Code(s): F10.29 - Alcohol dependence with unspecified alcohol-induced disorder Is this a current diagnosis for this admission?: Yes Plan: Mild withdrawal. Elevated CIWA scores noted. Will leave on Valium 5 mg 3 times daily and wean once CIWA scores improved. Ativan as needed based off CIWA scores only. (5) Cirrhosis Qualifiers: Is this a current diagnosis for this admission?: Yes Plan: 2/2 HCV and alcoholism. Does not appear to be decompensated. Avoid NSAIDs. 2 g daily maximum for Tylenol. (6) Heroin abuse Is this a current diagnosis for this admission?: Yes Plan: History of IV drug abuse. Supportive care, monitor for withdrawal. HIV ne gative. Hepatitis A and hepatitis B negative. (7) Pancytopenia Is this a current diagnosis for this admission?: Yes Plan: Unspecified etiology - Time Time Spent with patient: Less than 15 minutes
[2019-09-25] MEDS ORDERED: NAFCILLIN SODIUM INJ 2 GM VIAL IV SCH (14:00)
[2019-09-25] MEDS: CEFAZOLIN SODIUM 2 GM in DEXTROSE 5%-WATER 100 ML IV SCH ×2 (17:03→21:12)
[2019-09-25] MEDS: MELATONIN 3 MG TABLET PO PRN (22:20)
[2019-09-26] MEDS: LORAZEPAM INJ 2 MG/1 ML VIAL IV PRN ×3 (01:04→06:40)
[2019-09-26] MEDS: MORPHINE SULFATE 10 MG/ML INJ IV PRN (03:58)
[2019-09-26] MEDS: HEPARIN SOD (PORCINE) 5,000 UNIT/ML 1 ML VIAL SUBCUT SCH (05:47)
[2019-09-26] MEDS: DIAZEPAM 5 MG TABLET PO SCH (06:29)
[2019-09-26] MEDS: CEFAZOLIN SODIUM 2 GM in DEXTROSE 5%-WATER 100 ML IV SCH (06:29)
[2019-09-26 08:06] VITALS: BP 121/91
[2019-09-26] MEDS: TRAMADOL HCL 50 MG TABLET PO PRN (08:07)
--- NOTE | 2019-09-26 08:41 | Progress Note ---
Provider Note Provider Note: [facility] Telephone Advice Consultation Chart reviewed. Patient is a 34-year-old man with active IVDU, alcohol abuse, liver disease, HCV, recurrent pancreatitis, mesenteric adenitis, who was evaluated initially in the ED due to abdominal pain, fever and nausea. Blood cultures came back positive for MSSA. He was admitted on 09/20. He was also complaining of back pain for which he had an MRI of the thoracic spine which was negative for discitis, VOM or epidural abscess. CT scan of abdomen and pelvis positive for splenomegaly and lymphadenopathy. CXR negative for cardiopulmonary process. Blood culture on 09/20 positive for MSSA, negative to date from 09/23. TTE negative for valvular vegetations. He was started on vancomycin, now transitioned to nafcillin. ID consulted for recommendations as patient less likely to stay in the hospital for treatment. PMH: CLD HCV Alcohol abuse IVDU Recurrent pancreatitis Mesenteric adenitis Allergies: carisoprodol [From Soma] Allergy (Verified 07/04/19 07:37) Sulfa (Sulfonamide Antibiotics) Allergy (Verified 07/04/19 07:37) Medications: No Home Medications 09/22/19 [History] Vital Signs: Temp Pulse Resp BP Pulse Ox 97.9 F 69 16 121/91 H 97 09/26/19 08:01 09/26/19 08:01 09/26/19 08:01 09/26/19 08:01 09/26/19 08:01 Intake & Output 09/25/19 09/26/19 09/27/19 06:59 06:59 06:59 Intake Total 2081.2 1865.2 Balance 2081.2 1865.2 Weight 79.9 kg 79.1 kg Weight/Height Weight 79.1 kg Height 5 ft 9 in Laboratories: 09/25/19 05:46 09/24/19 05:35 MCV 87 fl (80-97) 09/25/19 05:46 MCH 30.0 pg (27.0-33.4) 09/25/19 05:46 MCHC 34.6 g/dL (32.0-36.0) 09/25/19 05:46 RDW 15.4 % (11.5-14.0) H 09/25/19 05:46 Seg Neutrophils % 52.4 % (42-78) 09/25/19 05:46 VBG pH 7.36 (7.30-7.42) 09/21/19 22:10 VBG pCO2 40.4 mmHg (35-63) 09/21/19 22:10 VBG HCO3 22.1 mmol/L (20-32) 09/21/19 22:10 VBG Base Excess -3.1 mmol/L 09/21/19 22:10 Chloride 111 mmol/L (98-107) H 09/24/19 05:35 Carbon Dioxide 21 mmol/L (22-30) L 09/24/19 05:35 Anion Gap 7 (5-19) 09/24/19 05:35 Est GFR ( Amer) > 60 (>60) 09/24/19 05:35 Glucose 83 mg/dL (75-110) 09/24/19 05:35 Lactic Acid 1.5 mmol/L (0.7-2.1) 09/22/19 04:26 Calcium 8.3 mg/dL (8.4-10.2) L 09/24/19 05:35 Total Bilirubin 0.8 mg/dL (0.2-1.3) 09/24/19 05:35 AST 27 U/L (17-59) 09/24/19 05:35 Alkaline Phosphatase 356 U/L (38-126) H 09/24/19 05:35 Total Protein 6.9 g/dL (6.3-8.2) 09/24/19 05:35 Albumin 2.7 g/dL (3.5-5.0) L 09/24/19 05:35 Lipase 29.0 U/L (23-300) 09/21/19 22:10 Microbiology: Blood cultures 09/20 MSSA 09/23 NGTD Radiology: Abdomen/Pelvis CT 09/21/19 00:00 IMPRESSION: 1. Increased severe hepatosplenomegaly and diffuse hepatic process compared with prior CT from April 2019. 2. Minimal pericholecystic fluid, chronic. 3. Moderate abdominal lymphadenopathy. Chest X-Ray 09/21/19 22:16 IMPRESSION: No evidence of acute cardiopulmonary disease. Thoracic Spine MRI 09/22/19 00:00 IMPRESSION: No evidence of epidural abscess. Assessment and Recommendations: Patient with active IVDU admitted due to sepsis secondary to MSSA bacteremia from IVDU. He is afebrile and HD stable. 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 HIV test negative. New blood cultures from 09/23 are negative in 24 hr. This is a community acquired MSSA bacteremia, it is not clear for how long he was bacteremic prior to presenting to the ED. No evidence of endocarditis, VOM, discitis, epidural abscess, intra abdominal abscess or other metastatic foci of infection that would require source control. IDSA guidelines recommend IV antibiotic treatment for MSSA bacteremia. As he has active IVDU, HCV and liver disease, he will need 4 weeks of therapy from negative blood cultures. Nafcillin or cefazolin are first line therapy. In terms of oral options, unfortunately no good options for him. He is allergic to sulfa drugs and he is pancytopenic (one of the main adverse effects of linezolid is marrow suppression). Dicloxacillin and cephalexin are used for MSSA infection, but not much data on complicated bacteremia. Continue current therapy or can transition to cefazolin as it is better tolerated than nafcillin. [place] course or oral therapy has been associated with high mortality and high relapse rate. Please call if questions. Deya Langston MD [facility] [phone]
--- NOTE | 2019-09-26 15:58 | Left Against Medical Advice ---
Against Medical Advice Admission Date/Time: 09/22/19 05:10 Primary Care Provider: Date of Patient Emigration: 09/26/19 - Diagnosis: (1) Alcohol dependence Is this a current diagnosis for this admission?: Yes (2) Alcoholic liver disease Is this a current diagnosis for this admission?: Yes (3) Bipolar disorder Is this a current diagnosis for this admission?: Yes (4) Cirrhosis Is this a current diagnosis for this admission?: Yes (5) Hepatitis C Is this a current diagnosis for this admission?: Yes (6) Heroin abuse Is this a current diagnosis for this admission?: Yes (7) IV drug user Is this a current diagnosis for this admission?: Yes (8) Methamphetamine abuse Is this a current diagnosis for this admission?: Yes (9) Staphylococcus aureus bacteremia with sepsis Is this a current diagnosis for this admission?: Yes - Summary: Summary: Please see Admission and Progress Notes as well. RAMBO MARTINEZ is a 34 M, who LEFT AGAINST MEDICAL ADVICE. The Patient was admitted on 09/22/19 05:10. No further discussion can be had regarding the patient's diagnosis and prognosis because the patient left AGAINST MEDICAL ADVICE.
== END 2019-09-26 09:24 | disposition left against medical advice (07) | DRG 872 ==
LOC: ER 21:54 → EH 09-22 04:30 → OBSVTOIN 09-22 05:10 → 3S 09-22 07:00
PROVIDERS: ADMIT Internal Medicine; ATTEND Family Medicine
DX: A41.01 Sepsis due to Methicillin susceptible Staphylococcus aureus (principal); D61.818 Other pancytopenia; F10.239 Alcohol dependence with withdrawal, unspecified; K70.30 Alcoholic cirrhosis of liver without ascites; K70.10 Alcoholic hepatitis without ascites; F31.9 Bipolar disorder, unspecified; F19.10 Other psychoactive substance abuse, uncomplicated; F15.10 Other stimulant abuse, uncomplicated; Z53.29 Procedure and treatment not carried out because of patient's decision for other reasons; I88.0 Nonspecific mesenteric lymphadenitis; M54.6 Pain in thoracic spine; E78.5 Hyperlipidemia, unspecified; I10 Essential (primary) hypertension; M19.90 Unspecified osteoarthritis, unspecified site; M10.9 Gout, unspecified; F43.10 Post-traumatic stress disorder, unspecified; F17.200 Nicotine dependence, unspecified, uncomplicated; F12.90 Cannabis use, unspecified, uncomplicated; Z82.49 Family history of ischemic heart disease and other diseases of the circulatory system; Z88.2 Allergy status to sulfonamides; Z88.8 Allergy status to other drugs, medicaments and biological substances
CPT/HCPCS: 36415; 71045; 72146; 74177; 80053; 80074; 80202; 80307; 82565; 82803; 82962; 83605; 83690; 85025; 85610; 86701; 87040; 87070; 87077; 87150; 87186; 87521; 93005; 93010; 93306; 96361; 96365; 96375; 96376; 99291; 99292; J0690; J0692; J1170; J2060; J2270; J2405; J2543; J3010; J3370; J3411; J3430; J3490; J7030; J7050; J7060; J7120; S0032

== ENCOUNTER 2019-09-29 13:57 | Inpatient (IN) | payer OTHER ==
[2019-09-29 14:41] LABS: ABSOLUTE BASOPHILS # (AUTO) 0.1 10^3/uL (0.0-0.2); ABSOLUTE LYMPHOCYTES (AUTO) 0.9 10^3/uL (0.5-4.7); ABSOLUTE MONOCYTES (AUTO) 0.3 10^3/uL (0.1-1.4); ABSOLUTE NEUT (AUTO) 7.8 10^3/uL (1.7-8.2); BASOPHILS % (AUTO) 0.8 % (0-2); EOSINOPHILS % (AUTO) 0.5 % (0-6); HEMATOCRIT 37.8 % (37.9-51.0); HEMOGLOBIN 12.9 g/dL (13.5-17.0); LYMPHOCYTES % (AUTO) 9.6 % (13-45); MEAN CORPUSCULAR HEMOGLOBIN 29.9 pg (27.0-33.4); MEAN CORPUSCULAR HGB CONC 34.2 g/dL (32.0-36.0); MEAN CORPUSCULAR VOLUME 88 fl (80-97); MONOCYTES % (AUTO) 3.3 % (3-13); PLATELET COUNT 167 10^3/uL (150-450); RED BLOOD COUNT 4.32 10^6/uL (4.35-5.55); RED CELL DISTRIBUTION WIDTH 16.4 % (11.5-14.0); SEGMENTED NEUTROPHILS % (AUTO) 85.8 % (42-78); TOTAL CELLS COUNTED % (AUTO) 100 %; WHITE BLOOD COUNT 9.1 10^3/uL (4.0-10.5)
[2019-09-29] MEDS ORDERED: NAFCILLIN SODIUM INJ 2 GM VIAL IV ONE (14:42)
[2019-09-29] MEDS ORDERED: PROMETHAZINE HCL INJ 25 MG/1 ML VIAL IV ONE (14:45)
[2019-09-29] MEDS ORDERED: MORPHINE SULFATE 10 MG/ML INJ IV ONE (14:51)
--- NOTE | 2019-09-29 14:55 | ER Document Report ---
ED General - General Chief Complaint: Abdominal Pain Stated Complaint: SHORTNESS OF BREATH Notes: Patient is a 34-year-old white male with a past medical history of bipolar disorder, IV drug abuse, hepatitis C, alcoholism, recurrent pancreatitis, mesenteric adenitis and ongoing chronic abdominal pain who returns to the emergency department after leaving AMA from hospital admission. Patient was seen here a few days ago, diagnosed with abdominal pain, pending cultures was discharged. He had a largely negative work-up at that time. He was called and advised to come back to be worked up for sepsis as his blood cultures returned with methicillin sensitive staph aureus. The patient was subsequently admitted for further care and management. During his admission he elected to leave AGAINST MEDICAL ADVICE. He states since that time he is continued drinking alc ohol. He drinks about a half a gallon of whiskey per day. He denies any drug use since discharge. He states he still having severe abdominal pain primarily in the upper quadrants but worse in the right upper quadrant. He had largely unremarkable imaging studies previously only showing mesenteric adenitis, severe splenomegaly consistent with chronic liver disease. He admits to some nausea and vomiting today with his abdominal pain. He states he was being "stupid" when he left AGAINST MEDICAL ADVICE and would like to be readmitted for continued care. Patient left AMA on the of this month. TRAVEL OUTSIDE OF THE [place] IN LAST 30 DAYS: No - Related Data Allergies/Adverse Reactions: carisoprodol [From Soma] Allergy (Verified 09/29/19 14:26) Sulfa (Sulfonamide Antibiotics) Allergy (Verified 09/29/19 14:26) Past Medical History - Social History Smoking Status: Current Some Day Smoker Chew tobacco use (# tins/day): No Frequency of alcohol use: Heavy Family History: CAD, CVA, Hyperlipidemia, Hypertension, Malignancy, Thyroid Disfunction Patient has suicidal ideation: No Patient has homicidal ideation: No - Past Medical History Cardiac Medical History: Reports: Hx Hypercholesterolemia, Hx Hypertension Pulmonary Medical History: Reports: Hx Bronchitis Neurological Medical History: Reports: Hx Cerebrovascular Accident - States he has had a TIA. Denies: Hx Seizures Renal/ Medical History: Denies: Hx Peritoneal Dialysis GI Medical History: Reports: Hx Cirrhosis, Hx Gastritis, Hx Hepatitis - Hepatitis-C, Hx Ulcer, Hx Endoscopy Musculoskeletal Medical History: Reports Hx Arthritis, Reports Hx Gout, Reports Hx Musculoskeletal Deformity, Reports Hx Musculoskeletal Trauma Psychiatric Medical History: Reports: Hx Anxiety, Hx Bipolar Disorder, Hx Depression, Hx Post Traumatic Stress Disorder Traumatic Medical History: Reports: Hx Fractures - Right hand Infectious Medical History: Reports: Hx Hepatitis - Hepatitis-C Past Surgical History: Reports: Hx Orthopedic Surgery - R hand - Immunizations Immunizations up to date: Yes Hx Diphtheria, Pertussis, Tetanus Vaccination: Yes Review of Systems - Review of Systems Gastrointestinal: Abdominal pain, Nausea, Vomiting -: Yes All other systems reviewed and negative Physical Exam - Vital signs Vitals: Temp Pulse Resp BP Pulse Ox 100.2 F 92 20 142/86 H 97 09/29/19 14:26 09/29/19 14:26 09/29/19 14:26 09/29/19 14:09/29/19 14:26 - General General appearance: Appears well, Alert In distress: Moderate - HEENT Head: Normocephalic, Atraumatic Eyes: Normal Conjunctiva: Injected Pupils: PERRL Mucous membranes: Moist Neck: Supple - Respiratory Respiratory status: No respiratory distress Chest status: Nontender Breath sounds: Normal Chest palpation: Normal - Cardiovascular Rhythm: Regular Heart sounds: Normal auscultation - Abdominal Inspection: Striae Distension: No distension Bowel sounds: Normal Tenderness: Other - Diffuse tenderness to palpation, worse in the left upper and right upper quadrant - Back Notes: Right-sided CVA area tenderness - Neurological Neuro grossly intact: Yes Cognition: Normal Orientation: AAOx4 [place] Coma Scale Eye Opening: Spontaneous [place] Coma Scale Verbal: Oriented [place] Coma Scale Motor: Obeys Commands Srikanth Coma Scale Total: 15 Speech: Normal - Psychological Associated symptoms: Normal affect, Normal mood - Skin Skin Temperature: Warm Skin Moisture: Dry Skin Color: Normal Course - Re-evaluation Re-evalutation: 09/29/19 15:55 EKG showing sinus tachycardia at 133. Unchanged from prior 09/29/19 19:[address] Jules, he will admit the patient to the medical floor. Patient stable for admission at this time. - Vital Signs Vital signs: Temp Pulse Resp BP Pulse Ox 100.2 F 92 20 142/86 H 97 09/29/19 14:26 09/29/19 14:26 09/29/19 14:26 09/29/19 14:09/29/19 14:26 - Laboratory Result Diagrams: 09/29/19 14:04 09/29/19 14:04 Laboratory results interpreted by me: 09/29/19 09/29/19 09/29/19 14:04 14:04 14:04 RBC 4.32 L Hgb 12.9 L Hct 37.8 L RDW 16.4 H Lymph % (Auto) 9.6 L Seg Neutrophils % 85.8 H Sodium 136.4 L BUN 3 L Total Bilirubin 2.1 H Direct Bilirubin 0.9 H Alkaline Phosphatase 446 H Creatine Kinase < 20 L Total Protein 9.0 H Urine Urobilinogen 09/29/19 14:15 RBC Hgb Hct RDW Lymph % (Auto) Seg Neutrophils % Sodium BUN Total Bilirubin Direct Bilirubin Alkaline Phosphatase Creatine Kinase Total Protein Urine Urobilinogen 4.0 H Discharge - Discharge Clinical Impression: Bacteremia, Elevated temperature, ETOH abuse, History of intravenous drug abuse Condition: Stable Disposition: ADMITTED INPATIENT Admitting Provider: Dhara (Hospitalist) Unit Admitted: Medical Floor
[2019-09-29] MEDS ORDERED: THIAMINE HCL 100 MG TABLET PO ONE (14:56)
[2019-09-29 14:58] LABS: ALBUMIN 4.3 g/dL (3.5-5.0); ALCOHOL 39 mg/dL (NONE DETECTED); ALKALINE PHOSPHATASE 446 U/L (38-126); ANION GAP 12 (5-19); ASPARTATE AMINO TRANSFERASE 38 U/L (17-59); BILIRUBIN,DIRECT 0.9 mg/dL (0.0-0.4); BILIRUBIN,TOTAL 2.1 mg/dL (0.2-1.3); BLOOD UREA NITROGEN 3 mg/dL (7-20); CALCIUM 8.9 mg/dL (8.4-10.2); CARBON DIOXIDE 23 mmol/L (22-30); CHLORIDE 101 mmol/L (98-107); GLUCOSE 91 mg/dL (75-110); POTASSIUM 3.8 mmol/L (3.6-5.0)
[2019-09-29 15:04] LABS: APPEARANCE,URINE CLEAR; BILIRUBIN,URINE NEGATIVE (NEGATIVE); COLOR,URINE AMBER; GLUCOSE, URINE NEGATIVE (NEGATIVE); KETONES,URINE NEGATIVE (NEGATIVE); LEUKOCYTE ESTERASE,URINE NEGATIVE (NEGATIVE); NITRITE,URINE NEGATIVE (NEGATIVE); PROTEIN,URINE NEGATIVE (NEGATIVE); URINE SPECIFIC GRAVITY 1.015
[2019-09-29 15:07] LABS: URINE BARBITURATES SCREEN NEGATIVE; URINE COCAINE SCREEN NEGATIVE; URINE MARIJUANA (THC) SCREEN NEGATIVE; URINE METHADONE SCREEN NEGATIVE; URINE PHENCYCLIDINE SCREEN NEGATIVE
[2019-09-29 15:15] LABS: URINE BENZODIAZEPINES SCREEN UNCONFIRMED POSITIVE
[2019-09-29 15:21] LABS: A TYPE INFLUENZA AG NEGATIVE (NEGATIVE)
[2019-09-29 15:22] LABS: B INFLUENZA AG NEGATIVE (NEGATIVE)
[2019-09-29] MEDS ORDERED: NAFCILLIN SODIUM 2 GM in DEXTROSE 5%-WATER 100 ML IV ONE (16:00)
[2019-09-29] MEDS ORDERED: DIAZEPAM 5 MG TABLET PO ONE (17:11)
--- NOTE | 2019-09-29 18:29 | RADIOLOGY REPORT (SQ) ---
EXAM DESCRIPTION: CT ABD/PELVIS WITH IV ORAL IMAGES COMPLETED DATE/TIME: 09/29/2019 4:57 pm REASON FOR STUDY: abd pain . Diffuse abdominal pain. COMPARISON: 09/22/2019. TECHNIQUE: CT scan of the abdomen and pelvis performed using helical scanning technique with dynamic intravenous contrast injection. No oral contrast. Images reviewed with lung, soft tissue, and bone windows. Reconstructed coronal and sagittal MPR images reviewed. Delayed images for evaluation of the urinary system also acquired. All images stored on PACS. All CT scanners at this facility use dose modulation, iterative reconstruction, and/or weight based d osing when appropriate to reduce radiation dose to as low as reasonably achievable (ALARA). [facility]: Dose Right [facility]: CareDose [facility]: Dose Right [facility]: Teradose 4D [facility]: Sensing Electromagnetic Plus CONTRAST TYPE AND DOSE: contrast/concentration: Isovue 350.00 mg/ml; Total Contrast Delivered: 94.0 ml; Total Saline Delivered: 71.0 ml RENAL FUNCTION: GFR > 60. RADIATION DOSE: CT Rad equipment meets quality standard of care and radiation dose reduction techniq ues were employed. CTDIvol: 9.7 - 13.0 mGy. DLP: 1291 mGy-cm.. LIMITATIONS: None. FINDINGS: LOWER CHEST: No significant findings. No nodules or infiltrates. LIVER: The liver is enlarged measuring 22.7 cm craniocaudal at the midclavicular line. There is a mi ldly nodular contour of the liver border. No focal hepatic mass. Mild diffuse hepatic steatosis. H epatic and portal veins are patent. No intrahepatic or extrahepatic biliary ductal dilation. SPLEEN: There is severe splenomegaly with spleen measuring 18.7 cm craniocaudal at the midclavicular line. No perisplenic fluid. PANCREAS: No masses. No significant calcifications. No adjacent inflammation or peripancreatic fluid collections. Pancreatic duct not dilated. GALLBLADDER: No identified stones by CT criteria. No inflammatory changes to suggest cholecystitis. ADRENAL GLANDS: No significant masses or asymmetry. RIGHT KIDNEY AND URETER: No solid masses. No significant calcifications. No hydronephrosis or hyd roureter. LEFT KIDNEY AND URETER: No solid masses. No significant calcifications. No hydronephrosis or hydr oureter. AORTA AND VESSELS: No aneurysm. No dissection. Renal arteries, SMA, celiac without stenosis. RETROPERITONEUM: Mildly prominent mesenteric lymph nodes are noted. No retroperitoneal adenopathy. No retroperitoneal mass or fluid. No pelvic adenopathy. BOWEL AND PERITONEAL CAVITY: No masses or inflammatory changes. No free fluid or peritoneal masses. APPENDIX: Normal. PELVIS: No mass. No free fluid. Normal bladder. ABDOMINAL WALL: No masses. No hernias. BONES: No significant or acute findings. OTHER: No other significant finding. IMPRESSION: 1. Severe hepatosplenomegaly is again demonstrated. There is mild diffuse hepatic steatosis. Nodula r contour of the liver may indicate underlying hepatic cirrhosis. Clinical correlation is recommende d. 2. Mildly prominent mesenteric lymph nodes may be reactive. TECHNICAL DOCUMENTATION: JOB ID: [id number] Quality ID # [id number]: Final reports with documentation of one or more dose reduction techniques (e.g., Au tomated exposure control, adjustment of the mA and/or kV according to patient size, use of iterative reconstruction technique) 2010 [employer]- All Rights Reserved Reading location - IP/workstation name: [email or web address]
[2019-09-29] MEDS ORDERED: PROMETHAZINE HCL INJ 25 MG/1 ML VIAL IV PRN (20:23)
[2019-09-29] MEDS ORDERED: MAG HYDROX/AL HYDROX/SIMETH SUSP 30 ML UDCUP PO PRN (20:23)
[2019-09-29] MEDS ORDERED: MAGNESIUM HYDROXIDE SUSP 30 ML UDCUP PO PRN (20:23)
[2019-09-29] MEDS ORDERED: METOPROLOL TARTRATE PF/INJ 5 MG/5 ML SDV IV PRN (20:28)
[2019-09-29] MEDS ORDERED: GUAIFENESIN SYRP 200 MG/10 ML UDC PO PRN (20:28)
[2019-09-29] MEDS ORDERED: MORPHINE SULFATE 10 MG/ML INJ IV PRN ×2 (20:28)
[2019-09-29] MEDS ORDERED: NICOTINE 21 MG/24 HR PATCH.TD24 TD PRN (20:28)
[2019-09-29] MEDS ORDERED: CHLORPROMAZINE HCL INJ 25 MG/1 ML AMPULE IV PRN (20:28)
[2019-09-29] MEDS ORDERED: ACETAMINOPHEN 325 MG TABLET PO PRN (20:28)
--- NOTE | 2019-09-29 20:45 | EKG REPORT ---
SEVERITY:- ABNORMAL ECG - SINUS TACHYCARDIA NONSPECIFIC ST-T CHANGES- INFERIOR LEADS : Confirmed by: Rory Valadez MD 29-Sep-2019 20:44:37
[2019-09-29] MEDS: FAMOTIDINE INJ/PF 20 MG/2 ML SDV IV SCH (21:18)
[2019-09-29] MEDS: HEPARIN SOD (PORCINE) 5,000 UNIT/ML 1 ML VIAL SUBCUT SCH (21:18)
[2019-09-29] MEDS: DIAZEPAM INJ 10 MG/2 ML DISP.SYRIN IV SCH (21:18)
[2019-09-29] MEDS: METOCLOPRAMIDE HCL INJ/PF 10 MG/2 ML SDV IV SCH (21:19)
[2019-09-29] MEDS: DEXTROSE 5%-LACTATED RINGERS 1,000 ML IV PRN (21:19)
[2019-09-29] MEDS: SUCRALFATE 1 GM TABLET PO SCH (21:27)
[2019-09-29] MEDS: MORPHINE SULFATE 10 MG/ML INJ IV PRN (21:28)
--- NOTE | 2019-09-29 21:46 | PDOC H&P ---
History of Present Illness Admission Date/PCP: 09/29/2019 19:42 [facility] Patient complains of: Abdominal pain History of Present Illness: RAMBO MARTINEZ is a 34 year old male who presented to the emergency room with an acute exacerbation of chronic abdominal pain. He admits chronic abdominal pain which has worsened since his AMA from this hospital on 09/26/2019. His abdominal pain is a nonradiating, constant, waxing and waning, severe pressure greater on the right side than the left accompanied by nausea and vomiting beginning earlier today. He denies other associated or accompanying signs and symptoms. His pain is worsened by he has alcohol consumption of half a gallon of whiskey on a daily basis. He admits numerous prior similar episodes related to his chronic/recurrent pancreatitis and mesenteric adenitis. He further admits a recent positive blood culture for MSSA which was incompletely treated at the time he left the hospital AMA. He has not identified any additional aggravating or ameliorating factors for his abdominal pain. In the emergency room he was found to have a normal white blood count and a temperature 100.2 F. He was subsequently admitted to the hospital for further evaluation and treatment. Past Medical History Cardiac Medical History: Reports: Hyperlipidema, Hypertension Denies: Atrial Fibrillation, Congestive Heart Failure, Coronary Artery Disease, DVT, Myocardial Infarction, Peripheral Vascular Disease, Pulmonary Embolism Pulmonary Medical History: Reports: Bronchitis Denies: Asthma, Chronic Obstructive Pulmonary Disease (COPD) EENT Medical History: Denies: Cataracts, Ears - Hearing aids Neurological Medical History: Denies: Migraine, Multiple Sclerosis, Seizures Endocrine Medical History: Denies: Diabetes Mellitus Type 1, Diabetes Mellitus Type 2, Hyperthyroidism, Hypothyroidism, Obesity Renal/ Medical History: Denies: Chronic Kidney Disease, Nephrolithiasis Malignancy Medical History: Reports: None GI Medical History: Reports: Cirrhosis, Hepatitis - Hepatitis-C Denies: Crohn's Disease, Gastroesophageal Reflux Disease, Peptic Ulcer Disease, Ulcerative Colitis Musculoskeltal Medical History: Reports: Arthritis, Gout Skin Medical History: Denies: Eczema, Psoriasis Psychiatric Medical History: Reports: Alcohol Dependency, Bipolar Disorder, Depression, Post Traumatic Stress Disorder, Substance Abuse, Other - Tobacco abuse, nondependent Traumatic Medical History: Reports: None Hematology: Denies: Anemia, Bleeding Tendencies Infectious Medical History: Reports: Hepatitis C Infectious History Note: Recent blood cultures positive for MSSA Past Surgical History Past Surgical History: Reports: Orthopedic Surgery - R hand Social History Information Source: Patient Lives with: Parents - Lives with his mother Smoking Status: Current Some Day Smoker Electronic Cigarette use?: No Frequency of Alcohol Use: Heavy - 1/2 gallon of whiskey daily Hx Recreational Drug Use: Yes Drugs: Cocaine, Heroin, Marijuana Hx Prescription Drug Abuse: Yes - Opioids and benzodiazepines - Advance Directive Resuscitation Status: Full Code Surrogate healthcare decision maker:: Fela Martinez Family History Family History: CAD, CVA, Hyperlipidemia, Hypertension, Malignancy, Thyroid Disfunction Parental Family History Reviewed: Yes Children Family History Reviewed: No Sibling(s) Family History Reviewed.: Yes Medication/Allergy Home Medications: No Home Medications 09/22/19 Allergies/Adverse Reactions: carisoprodol [From Soma] Allergy (Verified 09/29/19 14:26) Sulfa (Sulfonamide Antibiotics) Allergy (Verified 09/29/19 14:26) Review of Systems Constitutional: ABSENT: chills, fever(s) Eyes: ABSENT: visual disturbances, other - Eye pain Ears: ABSENT: hearing changes, other - Ear pain Nose, Mouth, and Throat: ABSENT: headache(s), sore throat Cardiovascular: ABSENT: chest pain, palpitations Respiratory: ABSENT: cough, dyspnea Gastrointestinal: PRESENT: as per HPI, abdominal pain, nausea, vomiting. ABSENT: constipation, diarrhea Genitourinary: ABSENT: dysuria, hematuria Musculoskeletal: ABSENT: back pain, joint swelling Integumentary: ABSENT: pruritus, rash Neurological: ABSENT: confusion, convulsions, focal weakness, memory loss, syncope Psychiatric: ABSENT: anxiety, depression Endocrine: ABSENT: cold intolerance, heat intolerance, polydipsia, polyphagia, polyuria Hematologic/Lymphatic: ABSENT: easy bleeding, easy bruising Allergic/Immunologic: ABSENT: seasonal rhinorrhea Physical Exam Vital Signs: Temp Pulse Resp BP Pulse Ox 100.2 F 92 20 142/86 H 97 09/29/19 14:26 09/29/19 14:26 09/29/19 14:26 09/29/19 14:26 09/29/19 14:26 Intake & Output 09/27/19 09/28/19 09/29/19 23:59 23:59 23:59 Weight 81.647 kg General appearance: PRESENT: cooperative, disheveled, mild distress - Secondary to abdominal pain Head exam: PRESENT: atraumatic, normocephalic Eye exam: PRESENT: conjunctiva pink. ABSENT: conjunctival injection, scleral icterus Ear exam: PRESENT: normal external ear exam. ABSENT: bleeding, drainage Mouth exam: PRESENT: dry mucosa, neck supple Neck exam: ABSENT: thyromegaly, tracheal deviation Respiratory exam: PRESENT: clear to auscultation jason, symmetrical, unlabored Cardiovascular exam: PRESENT: RRR. ABSENT: clicks, gallop, rubs Pulses: PRESENT: normal radial pulses, normal dorsalis pedis pul Vascular exam: PRESENT: normal capillary refill. ABSENT: pallor GI/Abdominal exam: PRESENT: hypoactive bowel sounds, soft, tenderness - Moderate bilateral upper quadrant tenderness greater on the right than the left Rectal exam: PRESENT: deferred Extremities exam: ABSENT: joint swelling, pedal edema Musculoskeletal exam: ABSENT: deformity, dislocation Neurological exam: PRESENT: alert, oriented to person, oriented to place, oriented to time, oriented to situation, CN II-XII grossly intact. ABSENT: motor sensory deficit Psychiatric exam: PRESENT: appropriate affect, normal mood Skin exam: PRESENT: dry, intact, warm. ABSENT: jaundice, rash, urticaria Results Laboratory Results: 09/29/19 14:04 09/29/19 14:04 09/29/19 09/29/19 09/29/19 14:04 14:04 14:04 WBC 9.1 RBC 4.32 L Hgb 12.9 L Hct 37.8 L MCV 88 MCH 29.9 MCHC 34.2 RDW 16.4 H Plt Count 167 Seg Neutrophils % 85.8 H Sodium 136.4 L Potassium 3.8 Chloride 101 Carbon Dioxide 23 Anion Gap 12 BUN 3 L Creatinine 0.63 Est GFR ( Amer) > 60 Glucose 91 Lactic Acid 1.8 Calcium 8.9 Total Bilirubin 2.1 H AST 38 Alkaline Phosphatase 446 H Total Protein 9.0 H Albumin 4.3 Lipase 25.9 Urine Color Urine Appearance Urine pH Ur Specific [place] Urine Protein Urine Glucose (UA) Urine Ketones Urine Blood Urine Nitrite Ur Leukocyte Esterase Urine WBC (Auto) Urine RBC (Auto) 09/29/19 14:15 WBC RBC Hgb Hct MCV MCH MCHC RDW Plt Count Seg Neutrophils % Sodium Potassium Chloride Carbon Dioxide Anion Gap BUN Creatinine Est GFR ( Amer) Glucose Lactic Acid Calcium Total Bilirubin AST Alkaline Phosphatase Total Protein Albumin Lipase Urine Color TARIK Urine Appearance CLEAR Urine pH 6.0 Ur Specific [place] 1.015 Urine Protein NEGATIVE Urine Glucose (UA) NEGATIVE Urine Ketones NEGATIVE Urine Blood NEGATIVE Urine Nitrite NEGATIVE Ur Leukocyte Esterase NEGATIVE Urine WBC (Auto) 2 Urine RBC (Auto) 1 09/29/19 09/29/19 14:04 15:20 Creatine Kinase < 20 L Troponin I < 0.012 Impressions: Abdomen/Pelvis CT 09/29/19 00:00 IMPRESSION: 1. Severe hepatosplenomegaly is again demonstrated. There is mild diffuse hepatic steatosis. Nodular contour of the liver may indicate underlying hepatic cirrhosis. Clinical correlation is recommended. 2. Mildly prominent mesenteric lymph nodes may be reactive. Assessment and Plan - Diagnosis (1) Abdominal pain Qualifiers: Abdominal location: upper abdomen, unspecified Qualified Code(s): R10.10 - Upper abdominal pain, unspecified Is this a current diagnosis for this admission?: Yes (2) Nausea and vomiting Qualifiers: Vomiting type: unspecified Vomiting Intractability: non-intractable Qualified Code(s): R11.2 - Nausea with vomiting, unspecified Is this a current diagnosis for this admission?: Yes (3) Mesenteric adenitis Is this a current diagnosis for this admission?: Yes (4) Bacteremia due to methicillin susceptible Staphylococcus aureus (MSSA) Is this a current diagnosis for this admission?: Yes (5) Chronic pancreatitis Qualifiers: Pancreatitis type: alcohol induced Qualified Code(s): K86.0 - Alcohol- induced chronic pancreatitis Is this a current diagnosis for this admission?: Yes (6) Alcohol dependence Qualifiers: Substance use status: in withdrawal Complication of substance-induced condition: uncomplicated Qualified Code(s): F10.230 - Alcohol dependence with withdrawal, uncomplicated Is this a current diagnosis for this admission?: Yes (7) Alcoholic liver disease Is this a current diagnosis for this admission?: Yes (8) Hepatitis C Qualifiers: Viral hepatitis chronicity: chronic Hepatic coma status: without hepatic coma Qualified Code(s): B18.2 - Chronic viral hepatitis C Is this a current diagnosis for this admission?: Yes (9) Essential hypertension Is this a current diagnosis for this admission?: Yes (10) Hyperlipidemia Qualifiers: Hyperlipidemia type: unspecified Qualified Code(s): E78.5 - Hyperlipidemia, unspecified Is this a current diagnosis for this admission?: Yes (11) Tobacco abuse Is this a current diagnosis for this admission?: Yes (12) Polysubstance abuse Is this a current diagnosis for this admission?: Yes (13) Bipolar disorder Qualifiers: Active/Remission status: remission status unspecified Qualified Code(s): F31.9 - Bipolar disorder, unspecified Is this a current diagnosis for this admission?: Yes - Plan Summary Summary: Patient will be admitted to the medical floor where he received routine supportive and symptomatic cares. He will be started on IV Ancef 2 g every 6 hours initially until blood culture results are available. He will receive morphine sulfate 2 to 4 mg IV every 2 hours as needed for pain control. He will receive Valium 5 mg IV every 4 hours for prevention of alcohol withdrawal symptoms. Additionally he will use Valium 10 mg IV every hour as needed for severe alcohol withdrawal symptoms. He will be on a clear liquid diet initially with diet advancement as tolerated. He will receive IV fluids utilizing lactated Ringer's at 167 mL/h for initial therapy until he is better able to tolerate oral intake. CBCs, metabolic profiles, magnesium levels, repeat blood cultures and liver function studies will be obtained as needed. Smoking cessation is advised and counseled briefly at the bedside. A nicotine replacement patch is available for the patient's use, if he so desires. Alcohol use cessation is advised and counseled briefly at the bedside. IV drug abuse cessation is advised and counseled briefly at the bedside. A pediatric social worker consultation will be obtained to assess the patient's needs and to aid the patient with appropriate post hospital follow-up and care. - Time Time Spent with patient: 15-24 minutes Smoking Cessation Education: 3 to 10 minutes Medications reviewed and adjusted accordingly: Yes Anticipated discharge: Home - Inpatient Certification Based on my medical assessment, after consideration of the patient's comorbidities, presenting symptoms, or acuity I expect that the services needed warrant INPATIENT care.: Yes I certify that my determination is in accordance with my understanding of Medicare's requirements for reasonable and necessary INPATIENT services [42 CFR 412.3e].: Yes Medical Necessity: Need Close Monitoring Due to Risk of Patient Decompensation, Need For IV Fluids, Need for Pain Control, Need for IV Antibiotics, Risk of Complication if Not Cared For in Hospital
[2019-09-29] MEDS ORDERED: CEFAZOLIN INJ 1 GM VIAL ONE (23:17)
[2019-09-29] MEDS: CEFAZOLIN 2 GM/D5W RTU 2 GM/50 ML RTUPB IV SCH (23:30)
[2019-09-30] MEDS: DIAZEPAM INJ 10 MG/2 ML DISP.SYRIN IV SCH ×3 (01:40→10:59)
[2019-09-30] MEDS: DEXTROSE 5%-LACTATED RINGERS 1,000 ML IV PRN ×2 (04:13→21:30)
[2019-09-30] MEDS ORDERED: CEFAZOLIN INJ 1 GM VIAL ONE (04:15)
[2019-09-30 04:42] LABS: HEMATOCRIT 30.9 % (37.9-51.0); MEAN CORPUSCULAR HEMOGLOBIN 29.9 pg (27.0-33.4); MEAN CORPUSCULAR HGB CONC 34.8 g/dL (32.0-36.0); MEAN CORPUSCULAR VOLUME 86 fl (80-97); PLATELET COUNT 110 10^3/uL (150-450); RED BLOOD COUNT 3.59 10^6/uL (4.35-5.55); RED CELL DISTRIBUTION WIDTH 16.1 % (11.5-14.0); WHITE BLOOD COUNT 4.3 10^3/uL (4.0-10.5)
[2019-09-30 04:48] LABS: HEMOGLOBIN 10.7 g/dL (13.5-17.0)
[2019-09-30 05:09] LABS: ALBUMIN 3.4 g/dL (3.5-5.0); ALKALINE PHOSPHATASE 360 U/L (38-126); AMYLASE 31 U/L (30-110); ANION GAP 10 (5-19); ASPARTATE AMINO TRANSFERASE 27 U/L (17-59); BILIRUBIN,DIRECT 0.8 mg/dL (0.0-0.4); BILIRUBIN,TOTAL 1.9 mg/dL (0.2-1.3); BLOOD UREA NITROGEN 8 mg/dL (7-20); CALCIUM 8.5 mg/dL (8.4-10.2); CARBON DIOXIDE 24 mmol/L (22-30); CHLORIDE 103 mmol/L (98-107); GLUCOSE 93 mg/dL (75-110); POTASSIUM 3.6 mmol/L (3.6-5.0); TOTAL PROTEIN 7.7 g/dL (6.3-8.2)
[2019-09-30] MEDS: CEFAZOLIN 2 GM/D5W RTU 2 GM/50 ML RTUPB IV SCH (05:34)
[2019-09-30] MEDS: HEPARIN SOD (PORCINE) 5,000 UNIT/ML 1 ML VIAL SUBCUT SCH ×3 (05:34→21:29)
[2019-09-30] MEDS: MORPHINE SULFATE 10 MG/ML INJ IV PRN ×5 (06:06→20:40)
[2019-09-30] MEDS: MAGNESIUM SULFATE 1 GM/D5W 100 ML IV SCH ×2 (06:07→07:39)
[2019-09-30] MEDS: SUCRALFATE 1 GM TABLET PO SCH ×4 (07:39→21:29)
[2019-09-30] MEDS: METOCLOPRAMIDE HCL INJ/PF 10 MG/2 ML SDV IV SCH ×4 (07:39→21:29)
[2019-09-30] MEDS ORDERED: CHLORPROMAZINE HCL INJ 25 MG/1 ML AMPULE IV PRN (09:04)
[2019-09-30] MEDS: LIPASE/PROTEASE/AMYLASE 1 CAP CAPSULE.DR PO SCH ×3 (10:46→17:22)
[2019-09-30] MEDS: FAMOTIDINE INJ/PF 20 MG/2 ML SDV IV SCH ×2 (11:06→21:29)
[2019-09-30] MEDS: CEFAZOLIN SODIUM 2 GM in DEXTROSE 5%-WATER 100 ML IV SCH ×3 (11:16→23:09)
--- NOTE | 2019-09-30 14:48 | PDOC PROGRESS REPORT ---
Subjective Progress Note for:: 09/30/19 Subjective:: No adverse events overnight. No new complaints. Vital signs been stable. He was on a clear liquid diet but cannot tolerate solid food. Talk to him and asked him if he had decided that he was going to stay here for 4 weeks and get his treatment as infectious disease a previously recommended, or if he was probably going to wind up leaving AGAINST MEDICAL ADVICE again. He said he decided he was going to stay here to get his treatment. Reason For Visit: ABDOMINAL PAIN, MSSA BACTEREMIA, Physical Exam Vital Signs: Temp Pulse Resp BP Pulse Ox 97.7 F 74 16 114/58 L 95 09/30/19 11:43 09/30/19 11:43 09/30/19 11:43 09/30/19 11:43 09/30/19 11:43 Intake & Output 09/29/19 09/30/19 10/01/19 06:59 06:59 06:59 Intake Total 1325 340 Balance 1325 340 Weight 81.6 kg General appearance: PRESENT: no acute distress, cooperative, disheveled Respiratory exam: PRESENT: clear to auscultation jason, symmetrical, unlabored. ABSENT: accessory muscle use, chest wall tenderness, crackles, prolonged expiratory phas, retraction, rhonchi, tachypnea, wheezes Cardiovascular exam: PRESENT: RRR, +S1, +S2 Pulses: PRESENT: normal carotid pulses Vascular exam: PRESENT: normal capillary refill GI/Abdominal exam: PRESENT: normal bowel sounds, soft. ABSENT: distended, guarding, rebound, tenderness Extremities exam: ABSENT: clubbing, pedal edema Musculoskeletal exam: PRESENT: normal inspection. ABSENT: deformity Neurological exam: PRESENT: awake, oriented to person, oriented to place, oriented to situation Psychiatric exam: PRESENT: flat affect Skin exam: PRESENT: dry, warm Results Laboratory Results: 09/30/19 04:26 09/30/19 04:26 09/29/19 09/29/19 09/29/19 14:04 14:04 14:04 WBC 9.1 RBC 4.32 L Hgb 12.9 L Hct 37.8 L MCV 88 MCH 29.9 MCHC 34.2 RDW 16.4 H Plt Count 167 Seg Neutrophils % 85.8 H Sodium 136.4 L Potassium 3.8 Chloride 101 Carbon Dioxide 23 Anion Gap 12 BUN 3 L Creatinine 0.63 Est GFR ( Amer) > 60 Glucose 91 Lactic Acid 1.8 Calcium 8.9 Magnesium Total Bilirubin 2.1 H AST 38 Alkaline Phosphatase 446 H Ammonia Total Protein 9.0 H Albumin 4.3 Amylase Lipase 25.9 Urine Color Urine Appearance Urine pH Ur Specific [place] Urine Protein Urine Glucose (UA) Urine Ketones Urine Blood Urine Nitrite Ur Leukocyte Esterase Urine WBC (Auto) Urine RBC (Auto) 09/29/19 09/30/19 09/30/19 14:15 04:26 04:26 WBC 4.3 RBC 3.59 L Hgb 10.7 L D Hct 30.9 L MCV 86 MCH 29.9 MCHC 34.8 RDW 16.1 H Plt Count 110 L Seg Neutrophils % Sodium 136.9 L Potassium 3.6 Chloride 103 Carbon Dioxide 24 Anion Gap 10 BUN 8 Creatinine 0.89 Est GFR ( Amer) > 60 Glucose 93 Lactic Acid Calcium 8.5 Magnesium 1.2 L* Total Bilirubin 1.9 H AST 27 Alkaline Phosphatase 360 H Ammonia Total Protein 7.7 Albumin 3.4 L Amylase 31 Lipase 19.8 L Urine Color TARIK Urine Appearance CLEAR Urine pH 6.0 Ur Specific [place] 1.015 Urine Protein NEGATIVE Urine Glucose (UA) NEGATIVE Urine Ketones NEGATIVE Urine Blood NEGATIVE Urine Nitrite NEGATIVE Ur Leukocyte Esterase NEGATIVE Urine WBC (Auto) 2 Urine RBC (Auto) 1 09/30/19 04:26 WBC RBC Hgb Hct MCV MCH MCHC RDW Plt Count Seg Neutrophils % Sodium Potassium Chloride Carbon Dioxide Anion Gap BUN Creatinine Est GFR ( Amer) Glucose Lactic Acid Calcium Magnesium Total Bilirubin AST Alkaline Phosphatase Ammonia 33.0 Total Protein Albumin Amylase Lipase Urine Color Urine Appearance Urine pH Ur Specific [place] Urine Protein Urine Glucose (UA) Urine Ketones Urine Blood Urine Nitrite Ur Leukocyte Esterase Urine WBC (Auto) Urine RBC (Auto) 09/29/19 09/29/19 14:04 15:20 Creatine Kinase < 20 L Troponin I < 0.012 Impressions: Abdomen/Pelvis CT 09/29/19 00:00 IMPRESSION: 1. Severe hepatosplenomegaly is again demonstrated. There is mild diffuse hepat ic steatosis. Nodular contour of the liver may indicate underlying hepatic cirrhosis. Clinical correlation is recommended. 2. Mildly prominent mesenteric lymph nodes may be reactive. Assessment and Plan - Diagnosis (1) Alcohol abuse Is this a current diagnosis for this admission?: Yes Plan: We got him on some as needed Ativan in case he goes into withdrawal (2) Bacteremia due to methicillin susceptible Staphylococcus aureus (MSSA) Is this a current diagnosis for this admission?: Yes Plan: We will have him on Ancef. We repeated his blood cultures to make sure they are still negative. If so, he will need 4 weeks of IV antibiotics according to infectious disease during his last visit. (3) History of intravenous drug abuse Is this a current diagnosis for this admission?: Yes Plan: He does not appear to be in any pain, but I have some morphine ordered in case he shows any signs of withdrawal. I have encouraged the staff to not give him morphine unless he starts to look like he is withdrawing. - Plan Summary Summary: Patient will be admitted to the medical floor where he received routine supp ortive and symptomatic cares. He will be started on IV Ancef 2 g every 6 hours initially until blood culture results are available. He will receive morphine sulfate 2 to 4 mg IV every 2 hours as needed for pain control. He will receive Valium 5 mg IV every 4 hours for prevention of alcohol withdrawal symptoms. Additionally he will use Valium 10 mg IV every hour as needed for severe alcohol withdrawal symptoms. He will be on a clear liquid diet initially with diet advancement as tolerated. He will receive IV fluids utilizing lactated Ringer's at 167 mL/h for initial therapy until he is better able to tolerate oral intake. CBCs, metabolic profiles, magnesium levels, repeat blood cultures and liver function studies will be obtained as needed. Smoking cessation is advised and counseled briefly at the bedside. A nicotine replacement patch is available for the patient's use, if he so desires. Alcohol use cessation is advised and counseled briefly at the bedside. IV drug abuse cessation is advised and counseled briefly at the bedside. A social science instructor consultation will be obtai mildred to assess the patient's needs and to aid the patient with appropriate post hospital follow-up and care. - Time Time Spent with patient: 15-24 minutes
[2019-09-30] MEDS: DIAZEPAM INJ 10 MG/2 ML DISP.SYRIN IV PRN (19:31)
[2019-10-01] MEDS: MORPHINE SULFATE 10 MG/ML INJ IV PRN ×5 (01:47→20:11)
[2019-10-01] MEDS: DIAZEPAM INJ 10 MG/2 ML DISP.SYRIN IV PRN ×6 (02:13→23:36)
[2019-10-01] MEDS: HEPARIN SOD (PORCINE) 5,000 UNIT/ML 1 ML VIAL SUBCUT SCH ×3 (05:08→22:57)
[2019-10-01] MEDS: CEFAZOLIN SODIUM 2 GM in DEXTROSE 5%-WATER 100 ML IV SCH ×4 (05:08→23:22)
[2019-10-01] MEDS: DEXTROSE 5%-LACTATED RINGERS 1,000 ML IV PRN ×4 (05:12→23:22)
[2019-10-01 05:20] LABS: HEMATOCRIT 30.8 % (37.9-51.0); HEMOGLOBIN 10.5 g/dL (13.5-17.0); MEAN CORPUSCULAR HEMOGLOBIN 30.1 pg (27.0-33.4); MEAN CORPUSCULAR VOLUME 89 fl (80-97); PLATELET COUNT 125 10^3/uL (150-450); RED BLOOD COUNT 3.48 10^6/uL (4.35-5.55); WHITE BLOOD COUNT 3.4 10^3/uL (4.0-10.5)
[2019-10-01] MEDS: METOCLOPRAMIDE HCL INJ/PF 10 MG/2 ML SDV IV SCH ×4 (07:53→23:22)
[2019-10-01] MEDS: SUCRALFATE 1 GM TABLET PO SCH ×4 (07:54→23:22)
[2019-10-01] MEDS: LIPASE/PROTEASE/AMYLASE 1 CAP CAPSULE.DR PO SCH ×3 (07:54→17:58)
[2019-10-01 10:20] LABS: ANION GAP 7 (5-19); BLOOD UREA NITROGEN 12 mg/dL (7-20); CALCIUM 8.9 mg/dL (8.4-10.2); CARBON DIOXIDE 25 mmol/L (22-30); CHLORIDE 107 mmol/L (98-107); GLUCOSE 85 mg/dL (75-110); POTASSIUM 3.9 mmol/L (3.6-5.0)
[2019-10-01] MEDS: FAMOTIDINE INJ/PF 20 MG/2 ML SDV IV SCH ×2 (10:26→23:22)
--- NOTE | 2019-10-01 17:10 | PDOC PROGRESS REPORT ---
Subjective Progress Note for:: 10/01/19 Subjective:: No adverse events overnight. No new complaints. Vital signs been stable. Eating and drinking without difficulty. Shows no signs of withdrawal. Reason For Visit: ABDOMINAL PAIN, MSSA BACTEREMIA, Physical Exam Vital Signs: Temp Pulse Resp BP Pulse Ox 97.8 F 86 20 109/55 L 100 10/01/19 08:24 10/01/19 08:24 10/01/19 08:24 10/01/19 08:24 10/01/19 08:24 Intake & Output 09/30/19 10/01/19 10/02/19 06:59 06:59 06:59 Intake Total 1325 3090 1685 Balance 1325 3090 1685 Weight 81.6 kg 76.9 kg General appearance: PRESENT: no acute distress, cooperative, disheveled Respiratory exam: PRESENT: clear to auscultation jason, symmetrical, unlabored. ABSENT: accessory muscle use, chest wall tenderness, crackles, prolonged expiratory phas, retraction, rhonchi, tachypnea, wheezes Cardiovascular exam: PRESENT: RRR, +S1, +S2 Pulses: PRESENT: normal carotid pulses Vascular exam: PRESENT: normal capillary refill GI/Abdominal exam: PRESENT: normal bowel sounds, soft. ABSENT: distended, guarding, rebound, tenderness Extremities exam: ABSENT: clubbing, pedal edema Musculoskeletal exam: PRESENT: normal inspection. ABSENT: deformity Neurological exam: PRESENT: awake, oriented to person, oriented to place, oriented to situation Psychiatric exam: PRESENT: flat affect Skin exam: PRESENT: dry, warm Results Laboratory Results: 10/01/19 05:09 10/01/19 05:09 10/01/19 10/01/19 05:09 05:09 WBC 3.4 L RBC 3.48 L Hgb 10.5 L Hct 30.8 L MCV 89 MCH 30.1 MCHC 34.0 RDW 16.0 H Plt Count 125 L Sodium 139.3 Potassium 3.9 Chloride 107 Carbon Dioxide 25 Anion Gap 7 BUN 12 Creatinine 0.97 Est GFR ( Amer) > 60 Glucose 85 Calcium 8.9 Magnesium 1.8 09/29/19 14:04 Throat Throat Culture - Final NORMAL THEODORE 09/29/19 09/29/19 14:04 15:20 Creatine Kinase < 20 L Troponin I < 0.012 Impressions: Abdomen/Pelvis CT 09/29/19 00:00 IMPRESSION: 1. Severe hepatosplenomegaly is again demonstrated. There is mild diffuse hepatic steatosis. Nodular contour of the liver may indicate underlying hepatic cirrhosis. Clinical correlation is recommended. 2. Mildly prominent mesenteric lymph nodes may be reactive. Assessment and Plan - Diagnosis (1) Alcohol abuse Is this a current diagnosis for this admission?: Yes Plan: We got him on some as needed Ativan in case he goes into withdrawal (2) Bacteremia due to methicillin susceptible Staphylococcus aureus (MSSA) Is this a current diagnosis for this admission?: Yes Plan: We will have him on Ancef. We repeated his blood cultures to make sure they are still negative, tomorrow will be 48 hours. If so, he will need 4 weeks of IV antibiotics according to infectious disease during his last visit. (3) History of intravenous drug abuse Is this a current diagnosis for this admission?: Yes Plan: He does not appear to be in any pain, but I have some morphine ordered in case he shows any signs of withdrawal. I have encouraged the staff to not give him morphine unless he starts to look like he is withdrawing. He will have to stay here to get his IV antibiotics. PICC line can be ordered tomorrow if his blood cultures are negative at 48 hours. - Plan Summary Summary: Patient will be admitted to the medical floor where he received routine supportive and symptomatic cares. He will be started on IV Ancef 2 g every 6 hours initially until blood culture results are available. He will receive morphine sulfate 2 to 4 mg IV every 2 hours as needed for pain control. He will receive Valium 5 mg IV every 4 hours for prevention of alcohol withdrawal symptoms. Additionally he will use Valium 10 mg IV every hour as needed for severe alcohol withdrawal symptoms. He will be on a clear liquid diet initially with diet advancement as tolerated. He will receive IV fluids utilizing lactated Ringer's at 167 mL/h for initial therapy until he is better able to tolerate oral intake. CBCs, metabolic profiles, magnesium levels, repeat blood cultures and liver function studies will be obtained as needed. Smoking cessation is advised and counseled briefly at the bedside. A nicotine replacement patch is available for the patient's use, if he so desires. Alcohol use cessation is advised and counseled briefly at the bedside. IV drug abuse cessation is advised and counseled briefly at the bedside. A social work administrator consultation will be obtained to assess the patient's needs and to aid the patient with appropriate post hospital follow-up and care. - Time Time Spent with patient: 15-24 minutes
[2019-10-02] MEDS: MORPHINE SULFATE 10 MG/ML INJ IV PRN ×6 (00:15→23:40)
[2019-10-02] MEDS: DIAZEPAM INJ 10 MG/2 ML DISP.SYRIN IV PRN ×2 (04:31→08:12)
[2019-10-02] MEDS: CEFAZOLIN SODIUM 2 GM in DEXTROSE 5%-WATER 100 ML IV SCH ×4 (05:18→23:41)
[2019-10-02] MEDS: HEPARIN SOD (PORCINE) 5,000 UNIT/ML 1 ML VIAL SUBCUT SCH ×3 (05:21→21:21)
[2019-10-02] MEDS: DEXTROSE 5%-LACTATED RINGERS 1,000 ML IV PRN ×2 (06:00→23:42)
[2019-10-02 06:25] LABS: HEMATOCRIT 29.3 % (37.9-51.0); MEAN CORPUSCULAR HEMOGLOBIN 29.8 pg (27.0-33.4); MEAN CORPUSCULAR HGB CONC 34.1 g/dL (32.0-36.0); MEAN CORPUSCULAR VOLUME 88 fl (80-97); PLATELET COUNT 119 10^3/uL (150-450); RED BLOOD COUNT 3.35 10^6/uL (4.35-5.55); RED CELL DISTRIBUTION WIDTH 16.3 % (11.5-14.0); WHITE BLOOD COUNT 2.6 10^3/uL (4.0-10.5)
[2019-10-02 06:44] LABS: ANION GAP 7 (5-19); BLOOD UREA NITROGEN 8 mg/dL (7-20); CALCIUM 9.1 mg/dL (8.4-10.2); CARBON DIOXIDE 25 mmol/L (22-30); CHLORIDE 108 mmol/L (98-107); GLUCOSE 89 mg/dL (75-110); POTASSIUM 3.9 mmol/L (3.6-5.0)
[2019-10-02] MEDS: METOCLOPRAMIDE HCL INJ/PF 10 MG/2 ML SDV IV SCH ×4 (08:11→23:40)
[2019-10-02] MEDS: LIPASE/PROTEASE/AMYLASE 1 CAP CAPSULE.DR PO SCH ×3 (08:11→17:10)
[2019-10-02] MEDS: SUCRALFATE 1 GM TABLET PO SCH ×4 (08:11→23:40)
[2019-10-02] MEDS: MAGNESIUM SULFATE 1 GM/D5W 100 ML IV SCH ×2 (08:12→09:23)
[2019-10-02] MEDS: FAMOTIDINE INJ/PF 20 MG/2 ML SDV IV SCH ×2 (09:23→23:40)
[2019-10-02] MEDS ORDERED: MORPHINE SULFATE 10 MG/ML INJ IV PRN (10:07)
[2019-10-02 10:42] LABS: INTERNATIONAL RATION (INR) 1.09; PROTHROMBIN TIME 14.1 SEC (11.4-15.4)
--- NOTE | 2019-10-02 13:25 | PDOC PROGRESS REPORT ---
Subjective Progress Note for:: 10/02/19 Subjective:: Patient appears quite comfortable today, sleeping peacefully in the room when I entered today. He states he is having abdominal pain and with further questioning he does admit to having history of peptic ulcer disease for which she only occasionally takes his prescribed omeprazole. We will check H. pylori on him and start him on Protonix here to go with his Carafate. If he has H. pylori, we can treat this as well. It is entirely possible that his abdominal pain is due to severe hepatosplenomegaly. There is no evidence whatsoever that he has pancreatitis alcohol-related or otherwise given his lipase was quite low and his pancreas appeared completely normal per his recent abdominal CT. Reduce IV narcotics and use them only for breakthrough pain, added oxycodone as needed for pain, stopped IV Valium and changed this to oral at half the dose. He is very much outside the window for alcohol withdrawal and he has 0 symptoms of this per my exam. He is not in alcohol withdrawal. I fully expect him to request narcotics and other sedatives [id number]. He would be best served by getting plugged into a Suboxone clinic after discharge. He is agreeable to having PICC line placed today. He voiced understanding that he cannot be discharged on oral antibiotics. Reason For Visit: ABDOMINAL PAIN, MSSA BACTEREMIA, Physical Exam Vital Signs: Temp Pulse Resp BP Pulse Ox 98.0 F 85 19 106/65 96 10/02/19 10:00 10/02/19 10:00 10/02/19 10:00 10/02/19 10:00 10/02/19 10:00 Intake & Output 10/01/19 10/02/19 10/03/19 06:59 06:59 06:59 Intake Total 3090 6280 200 Balance 3090 6280 200 Weight 76.9 kg 81.7 kg General appearance: PRESENT: no acute distress, well-developed, well-nourished Head exam: PRESENT: atraumatic, normocephalic Eye exam: PRESENT: conjunctiva pink Mouth exam: PRESENT: moist Respiratory exam: PRESENT: clear to auscultation jason. ABSENT: rales, rhonchi, wheezes Cardiovascular exam: PRESENT: RRR. ABSENT: diastolic murmur, rubs, systolic murmur Rectal exam: PRESENT: deferred Musculoskeletal exam: PRESENT: ambulatory Neurological exam: PRESENT: alert, awake, oriented to person, oriented to place, oriented to time, oriented to situation Psychiatric exam: PRESENT: appropriate affect, normal mood Skin exam: PRESENT: dry, intact, warm Results Laboratory Results: 10/02/19 05:35 10/02/19 05:35 10/02/19 10/02/19 05:35 05:35 WBC 2.6 L RBC 3.35 L Hgb 10.0 L Hct 29.3 L MCV 88 MCH 29.8 MCHC 34.1 RDW 16.3 H Plt Count 119 L Sodium 140.1 Potassium 3.9 Chloride 108 H Carbon Dioxide 25 Anion Gap 7 BUN 8 Creatinine 0.69 Est GFR ( Amer) > 60 Glucose 89 Calcium 9.1 Magnesium 1.2 L* 09/29/19 14:04 Throat Throat Culture - Final NORMAL THEODORE 09/29/19 09/29/19 14:04 15:20 Creatine Kinase < 20 L Troponin I < 0.012 Impressions: Abdomen/Pelvis CT 09/29/19 00:00 IMPRESSION: 1. Severe hepatosplenomegaly is again demonstrated. There is mild diffuse hepatic steatosis. Nodular contour of the liver may indicate underlying hepatic cirrhosis. Clinical correlation is recommended. 2. Mildly prominent mesenteric lymph nodes may be reactive. Assessment and Plan - Diagnosis (1) Bacteremia due to methicillin susceptible Staphylococcus aureus (MSSA) Is this a current diagnosis for this admission?: Yes Plan: -Continue IV Ancef -repeated blood cultures ngtd; cleared to get PICC 10/01 -4 weeks of IV antibiotics according to infectious disease during his last visit. (2) PUD (peptic ulcer disease) Is this a current diagnosis for this admission?: Yes Plan: History of ulcer seen on EGD in the past per patient Was previously prescribed omeprazole but did not take this consistently Start Protonix oral daily, Carafate continued Check H. pylori stool antigen and treat if positive (3) Chronic narcotic dependence Is this a current diagnosis for this admission?: Yes Plan: Gradually wean narcotics by lowering dose every 2 to 3 days Patient does not appear to be uncomfortable or in any significant pain but is still requesting narcotics and benzos as frequently as they are available even when he is somnolent and falling asleep; discussed the case with the nurse will use the available pain medications judiciously/sparingly Discussed patient's narcotics dependence with him in great detail and he agrees that he would like to be eventually tapered off of narcotics as he had been clean for multiple years when taking Suboxone outpatient, he lost his health benefits and could no longer afford the frequent visits (4) History of intravenous drug abuse Is this a current diagnosis for this admission?: Yes Plan: As above (5) Abdominal pain Qualifiers: Abdominal location: upper abdomen, unspecified Qualified Code(s): R10.10 - Upper abdominal pain, unspecified Is this a current diagnosis for this admission?: Yes Plan: Possibly due to severe hepatosplenomegaly versus peptic ulcer disease (6) Alcohol dependence with withdrawal Qualifiers: Is this a current diagnosis for this admission?: Yes (7) Cirrhosis Qualifiers: Is this a current diagnosis for this admission?: Yes (8) Essential hypertension Is this a current diagnosis for this admission?: Yes (9) GERD (gastroesophageal reflux disease) Is this a current diagnosis for this admission?: Yes - Plan Summary Summary: Patient will be admitted to the medical floor where he received routine supportive and symptomatic cares. He will be started on IV Ancef 2 g every 6 hours initially until blood culture results are available. He will receive morphine sulfate 2 to 4 mg IV every 2 hours as needed for pain control. He will receive Valium 5 mg IV every 4 hours for prevention of alcohol withdrawal symptoms. Additionally he will use Valium 10 mg IV every hour as needed for severe alcohol withdrawal symptoms. He will be on a clear liquid diet initially with diet advancement as tolerated. He will receive IV fluids utilizing lactated Ringer's at 167 mL/h for initial therapy until he is better able to tolerate oral intake. CBCs, metabolic profiles, magnesium levels, repeat blood cultures and liver function studies will be obtained as needed. Smoking cessat ion is advised and counseled briefly at the bedside. A nicotine replacement patch is available for the patient's use, if he so desires. Alcohol use cessation is advised and counseled briefly at the bedside. IV drug abuse cessation is advised and counseled briefly at the bedside. A certified social workers in health care consultation will be obtained to assess the patient's needs and to aid the patient with appropriate post hospital follow-up and care. - Time Time Spent with patient: 25-34 minutes - Inpatient Certification Medical Necessity: Significant Comorbidiites Make Outpatient Treatment Too Risky, Need Close Monitoring Due to Risk of Patient Decompensation, Need for IV Antibiotics
[2019-10-02] MEDS: PANTOPRAZOLE SODIUM 20 MG TABLET.DR PO SCH (13:27)
[2019-10-02] MEDS: OXYCODONE HCL IR 5 MG TABLET PO PRN ×2 (13:29→19:35)
--- NOTE | 2019-10-02 14:33 | RADIOLOGY REPORT (SQ) ---
EXAM DESCRIPTION: PICC INSERTION IMAGES COMPLETED DATE/TIME: 10/02/2019 1:21 pm REASON FOR STUDY: iv abx longterm COMPARISON: 09/21/2019. FLUOROSCOPY TIME: 48 seconds 2 images saved to PACS. TECHNIQUE: Fluoroscopic and ultrasound guided PICC placement. LIMITATIONS: None. PROCEDURE: After written consent and assessment were obtained, the patient was brought into the fluo roscopy room and placed supine on the table. Ultrasound evaluation of potential access sites were per formed. After successfully identifying a patent right basilic vein, the right arm was prepped and katelyn ped in a sterile fashion along with the ultrasound probe. The entry site was anesthetized with 1% lid ocaine. A 21 gauge 7 cm needle was advanced through the skin and into the basilic vein under live ult rasound guidance. An ultrasound image was saved to PACS confirming access site. A .018 guide wire w as then inserted through the needle and into the venous system. The needle was then removed and an 11 blade scalpel was used to make a 1cm skin incision. A 5 fr peel-away sheath was advanced over the w bryanna and into the venous system. A measurement was then made using the existing wire and live fluorosc opic guidance. The wire was then removed and trimmed. The PICC was advanced through the peel-away she ath and into the venous system. The peel-away sheath was removed and the catheter was adhered to the patients arm with a stat lock. The catheter was then aspirated and flushed and a sterile bandage was placed over the access site. A fluoroscopic spot image was saved to PACS confirming the catheter tip within the superior vena cava. IMPRESSION: SUCCESSFUL PLACEMENT OF A 5 FR DUAL LUMEN 36 CM PICC IN THE RIGHT BASILIC VEIN. COMMENT: Patient medication list reviewed: Yes- Quality ID# 130:Eligible professional attests to doc umenting in the medical record they obtained, updated, or reviewed the patient's current medications. . Quality ID 145: Final reports for procedures using fluoroscopy that document radiation exposure kenney amisha, or exposure time and number of fluorographic images (if radiation exposure indices are not avail able) Quality ID #76: The patient was prepped and draped using maximum sterile barrier technique including cap, mask, sterile gown, sterile gloves, a large sterile sheet, hand hygiene, and 2% Chlorhexidine fo r cutaneous antisepsis. When ultrasound is used, sterile ultrasound techniques are followed requiring sterile gel and sterile probes. TECHNICAL DOCUMENTATION: JOB ID: [id number] 2010 [employer]- All Rights Reserved rev-10/28 Reading location - IP/workstation name: [email or web address]
[2019-10-02] MEDS ORDERED: NORMAL SALINE 10 ML SDV (AFTER EACH USE) IV PRN (17:00)
[2019-10-02] MEDS: DIAZEPAM 5 MG TABLET PO PRN ×2 (17:10→23:40)
[2019-10-02] MEDS: NORMAL SALINE 10 ML SDV (SCHEDULED) IV SCH (23:41)
[2019-10-03] MEDS: DIAZEPAM 5 MG TABLET PO PRN ×3 (06:06→21:39)
[2019-10-03] MEDS: PANTOPRAZOLE SODIUM 20 MG TABLET.DR PO SCH (06:06)
[2019-10-03] MEDS: CEFAZOLIN SODIUM 2 GM in DEXTROSE 5%-WATER 100 ML IV SCH ×4 (06:06→23:23)
[2019-10-03] MEDS: OXYCODONE HCL IR 5 MG TABLET PO PRN ×3 (06:07→20:29)
[2019-10-03] MEDS: MORPHINE SULFATE 10 MG/ML INJ IV PRN ×5 (06:07→23:23)
[2019-10-03] MEDS: DEXTROSE 5%-LACTATED RINGERS 1,000 ML IV PRN ×3 (06:07→23:30)
[2019-10-03] MEDS: HEPARIN SOD (PORCINE) 5,000 UNIT/ML 1 ML VIAL SUBCUT SCH ×3 (06:19→23:25)
[2019-10-03 06:47] LABS: ANION GAP 6 (5-19); BLOOD UREA NITROGEN 8 mg/dL (7-20); CALCIUM 9.3 mg/dL (8.4-10.2); CARBON DIOXIDE 28 mmol/L (22-30); CHLORIDE 107 mmol/L (98-107); GLUCOSE 82 mg/dL (75-110); POTASSIUM 3.7 mmol/L (3.6-5.0)
[2019-10-03] MEDS: LIPASE/PROTEASE/AMYLASE 1 CAP CAPSULE.DR PO SCH ×3 (08:24→17:12)
[2019-10-03] MEDS: SUCRALFATE 1 GM TABLET PO SCH ×4 (08:24→23:23)
[2019-10-03] MEDS: METOCLOPRAMIDE HCL INJ/PF 10 MG/2 ML SDV IV SCH ×4 (08:24→23:24)
[2019-10-03] MEDS ORDERED: MAGNESIUM SULFATE INJ 8 MEQ/2 ML IV ONE (08:45)
[2019-10-03] MEDS: FAMOTIDINE INJ/PF 20 MG/2 ML SDV IV SCH ×2 (09:17→23:24)
[2019-10-03] MEDS: NORMAL SALINE 10 ML SDV (SCHEDULED) IV SCH ×2 (09:18→23:24)
[2019-10-03] MEDS ORDERED: MAGNESIUM SULFATE/D5W 1 GM/100 ML RTUPB IV ONE (10:00)
--- NOTE | 2019-10-03 13:53 | PDOC PROGRESS REPORT ---
Subjective Progress Note for:: 10/03/19 Subjective:: 10/02/2019 Patient appears quite comfortable today, sleeping peacefully in the room when I entered today. He states he is having abdominal pain and with further questi oning he does admit to having history of peptic ulcer disease for which she only occasionally takes his prescribed omeprazole. We will check H. pylori on him and start him on Protonix here to go with his Carafate. If he has H. pylori, we can treat this as well. It is entirely possible that his abdominal pain is due to severe hepatosplenomegaly. There is no evidence whatsoever that he has pancr eatitis alcohol-related or otherwise given his lipase was quite low and his pancreas appeared completely normal per his recent abdominal CT. Reduce IV narcotics and use them only for breakthrough pain, added oxycodone as needed for pain, stopped IV Valium and changed this to oral at half the dose. He is very much outside the window for alcohol withdrawal and he has 0 symptoms of this per my exam. He is not in alcohol withdrawal. I fully expect him to request narcotics and other sedatives [id number]. He would be best served by getting plugged into a Suboxone/methadone clinic after discharge. He is agreeable to having PICC line placed today. He voiced understanding that he cannot be discharged on oral antibiotics. 10/03/2019 Patient seems to be doing well today, states his pain is controlled and he is tolerating oral narcotics and benzos but states he is also still using IV na rcotics intermittently, seems to be less today. We will keep his pain/anxiety regimen the same today with plans to drop the dose tomorrow. Magnesium low, will replete this today. PICC line has been put in place yesterday. Reason For Visit: ABDOMINAL PAIN, MSSA BACTEREMIA, Physical Exam Vital Signs: Temp Pulse Resp BP Pulse Ox 98.3 F 82 16 116/68 96 10/03/19 07:32 10/03/19 07:32 10/03/19 07:32 10/03/19 07:32 10/03/19 07:32 Intake & Output 10/02/19 10/03/19 10/04/19 06:59 06:59 06:59 Intake Total 6280 3483 240 Output Total 200 Balance 6280 3283 240 Weight 81.7 kg 78.9 kg General appearance: PRESENT: no acute distress, well-developed, well-nourished Head exam: PRESENT: atraumatic, normocephalic Eye exam: PRESENT: conjunctiva pink Mouth exam: PRESENT: moist Respiratory exam: PRESENT: clear to auscultation jason. ABSENT: rales, rhonchi, wheezes Cardiovascular exam: PRESENT: RRR. ABSENT: diastolic murmur, rubs, systolic murmur GI/Abdominal exam: PRESENT: normal bowel sounds, soft. ABSENT: distended, guarding, mass, organolmegaly, rebound, tenderness Musculoskeletal exam: PRESENT: ambulatory Neurological exam: PRESENT: alert, awake, oriented to person, oriented to place, oriented to time, oriented to situation Psychiatric exam: PRESENT: appropriate affect, normal mood Skin exam: PRESENT: dry, intact, warm Results Laboratory Results: 10/02/19 05:35 10/03/19 06:15 10/03/19 06:15 Sodium 140.9 Potassium 3.7 Chloride 107 Carbon Dioxide 28 Anion Gap 6 BUN 8 Creatinine 0.78 Est GFR ( Amer) > 60 Glucose 82 Calcium 9.3 Magnesium 1.3 L 09/29/19 09/29/19 14:04 15:20 Creatine Kinase < 20 L Troponin I < 0.012 Impressions: Abdomen/Pelvis CT 09/29/19 00:00 IMPRESSION: 1. Severe hepatosplenomegaly is again demonstrated. There is mild diffuse hepatic steatosis. Nodular contour of the liver may indicate underlying hepatic cirrhosis. Clinical correlation is recommended. 2. Mildly prominent mesenteric lymph nodes may be reactive. PICC Line Insertion 10/02/19 00:00 IMPRESSION: SUCCESSFUL PLACEMENT OF A 5 FR DUAL LUMEN 36 CM PICC IN THE RIGHT BASILIC VEIN. Assessment and Plan - Diagnosis (1) Bacteremia due to methicillin susceptible Staphylococcus aureus (MSSA) Is this a current diagnosis for this admission?: Yes Plan: -Continue IV Ancef -repeated blood cultures ngtd; cleared to get PICC 10/01 -4 weeks of IV antibiotics according to infectious disease during his last visit. 10/02/2021 Antibiotics continued, tolerated well (2) PUD (peptic ulcer disease) Is this a current diagnosis for this admission?: Yes Plan: History of ulcer seen on EGD in the past per patient Was previously prescribed omeprazole but did not take this consistently Start Protonix oral daily, Carafate continued Check H. pylori stool antigen and treat if positive 10/03/2019 Still needs stool sample to be sent for H. pylori antigen Per patient abdominal pain is much better today (3) Chronic narcotic dependence Is this a current diagnosis for this admission?: Yes (4) History of intravenous drug abuse Is this a current diagnosis for this admission?: Yes (5) Abdominal pain Qualifiers: Abdominal location: upper abdomen, unspecified Qualified Code(s): R10.10 - Upper abdominal pain, unspecified Is this a current diagnosis for this admission?: Yes (6) Alcohol dependence with withdrawal Qualifiers: Is this a current diagnosis for this admission?: Yes (7) Cirrhosis Qualifiers: Is this a current diagnosis for this admission?: Yes (8) Essential hypertension Is this a current diagnosis for this admission?: Yes (9) GERD (gastroesophageal reflux disease) Is this a current diagnosis for this admission?: Yes - Plan Summary Summary: Patient will be admitted to the medical floor where he received routine support leisa and symptomatic cares. He will be started on IV Ancef 2 g every 6 hours initially until blood culture results are available. He will receive morphine sulfate 2 to 4 mg IV every 2 hours as needed for pain control. He will receive Valium 5 mg IV every 4 hours for prevention of alcohol withdrawal symptoms. Additionally he will use Valium 10 mg IV every hour as needed for severe alcohol withdrawal symptoms. He will be on a clear liquid diet initially with diet advancement as tolerated. He will receive IV fluids utilizing lactated Ringer's at 167 mL/h for initial therapy until he is better able to tolerate oral intake. CBCs, metabolic profiles, magnesium levels, repeat blood cultures and liver function studies will be obtained as needed. Smoking cessation is advised and counseled briefly at the bedside. A nicotine replacement patch is available for the patient's use, if he so desires. Alcohol use cessation is advised and counseled briefly at the bedside. IV drug abuse cessation is advised and counseled briefly at the bedside. A drug abuse social worker consultation will be obtained to assess the patient's needs and to aid the patient with appropriate post hospital follow-up and care. - Time Time Spent with patient: 15-24 minutes Medications reviewed and adjusted accordingly: Yes - Inpatient Certification Medical Necessity: Significant Comorbidiites Make Outpatient Treatment Too Risky, Need Close Monitoring Due to Risk of Patient Decompensation, Need for IV Antibiotics
[2019-10-04] MEDS: DEXTROSE 5%-LACTATED RINGERS 1,000 ML IV PRN ×4 (05:08→22:46)
[2019-10-04] MEDS: CEFAZOLIN SODIUM 2 GM in DEXTROSE 5%-WATER 100 ML IV SCH ×3 (05:09→17:24)
[2019-10-04] MEDS: HEPARIN SOD (PORCINE) 5,000 UNIT/ML 1 ML VIAL SUBCUT SCH ×3 (05:09→21:32)
[2019-10-04] MEDS: DIAZEPAM 5 MG TABLET PO PRN ×3 (05:10→18:57)
[2019-10-04] MEDS: PANTOPRAZOLE SODIUM 20 MG TABLET.DR PO SCH (05:10)
[2019-10-04] MEDS: OXYCODONE HCL IR 5 MG TABLET PO PRN ×3 (05:10→18:57)
[2019-10-04 05:45] LABS: ANION GAP 7 (5-19); BLOOD UREA NITROGEN 7 mg/dL (7-20); CALCIUM 9.2 mg/dL (8.4-10.2); CARBON DIOXIDE 28 mmol/L (22-30); CHLORIDE 105 mmol/L (98-107); GLUCOSE 95 mg/dL (75-110); POTASSIUM 3.7 mmol/L (3.6-5.0)
[2019-10-04] MEDS: MAGNESIUM SULFATE/D5W 1 GM/100 ML RTUPB IV SCH ×3 (06:37→09:41)
[2019-10-04] MEDS: METOCLOPRAMIDE HCL INJ/PF 10 MG/2 ML SDV IV SCH ×4 (08:05→21:30)
[2019-10-04] MEDS: LIPASE/PROTEASE/AMYLASE 1 CAP CAPSULE.DR PO SCH ×3 (08:06→17:24)
[2019-10-04] MEDS: SUCRALFATE 1 GM TABLET PO SCH ×4 (08:06→21:30)
[2019-10-04] MEDS: MORPHINE SULFATE 10 MG/ML INJ IV PRN ×3 (09:25→21:29)
[2019-10-04] MEDS: NORMAL SALINE 10 ML SDV (SCHEDULED) IV SCH ×2 (09:44→21:30)
[2019-10-04] MEDS ORDERED: BISACODYL 10 MG SUPP.RECT PR PRN (09:49)
[2019-10-04] MEDS: FAMOTIDINE INJ/PF 20 MG/2 ML SDV IV SCH ×2 (09:57→21:30)
[2019-10-04] MEDS ORDERED: BISACODYL 5 MG TABEC PO ONE (10:30)
--- NOTE | 2019-10-04 12:19 | PDOC PROGRESS REPORT ---
Subjective Progress Note for:: 10/04/19 Subjective:: 10/02/2019 Patient appears quite comfortable today, sleeping peacefully in the room when I entered today. He states he is having abdominal pain and with further questi oning he does admit to having history of peptic ulcer disease for which she only occasionally takes his prescribed omeprazole. We will check H. pylori on him and start him on Protonix here to go with his Carafate. If he has H. pylori, we can treat this as well. It is entirely possible that his abdominal pain is due to severe hepatosplenomegaly. There is no evidence whatsoever that he has pancr eatitis alcohol-related or otherwise given his lipase was quite low and his pancreas appeared completely normal per his recent abdominal CT. Reduce IV narcotics and use them only for breakthrough pain, added oxycodone as needed for pain, stopped IV Valium and changed this to oral at half the dose. He is very much outside the window for alcohol withdrawal and he has 0 symptoms of this per my exam. He is not in alcohol withdrawal. I fully expect him to request narcotics and other sedatives [id number]. He would be best served by getting plugged into a Suboxone/methadone clinic after discharge. He is agreeable to having PICC line placed today. He voiced understanding that he cannot be discharged on oral antibiotics. 10/03/2019 Patient seems to be doing well today, states his pain is controlled and he is tolerating oral narcotics and benzos but states he is also still using IV na rcotics intermittently, seems to be less today. We will keep his pain/anxiety regimen the same today with plans to drop the dose tomorrow. Magnesium low, will replete this today. PICC line has been put in place yesterday. 10/04/2019 Patient again has asked me if he can be sent home on oral antibiotics instead of taking IV. I explained this to him in detail yet again and I wrote it on his dry erase board next to his bed in case he forgets again in the future. We are having the same conversation every single day. He was sleeping comfortably when I entered the room today and by the end of our conversation he was stating he wanted more narcotics and benzos. I will drop the as needed dose of his morphine today and leave the Valium and the oxycodone at the same dose for today. Tomorrow I will drop the morphine and Valium doses. His magnesium was extremely low and this is being actively repleted IV. Reason For Visit: ABDOMINAL PAIN, MSSA BACTEREMIA, Physical Exam Vital Signs: Temp Pulse Resp BP Pulse Ox 98.3 F 81 18 122/86 H 93 10/04/19 07:32 10/04/19 10:00 10/04/19 07:32 10/04/19 07:32 10/04/19 07:32 Intake & Output 10/03/19 10/04/19 10/05/19 06:59 06:59 06:59 Intake Total 3483 4161 1400 Output Total 200 Balance 3283 4161 1400 Weight 78.9 kg 78.9 kg General appearance: PRESENT: no acute distress, well-developed, well-nourished Head exam: PRESENT: atraumatic, normocephalic Eye exam: PRESENT: conjunctiva pink, EOMI, PERRLA. ABSENT: scleral icterus Mouth exam: PRESENT: moist Respiratory exam: PRESENT: clear to auscultation jason. ABSENT: rales, rhonchi, wheezes Cardiovascular exam: PRESENT: RRR. ABSENT: diastolic murmur, rubs, systolic murmur GI/Abdominal exam: PRESENT: normal bowel sounds, soft. ABSENT: distended, guarding, mass, organolmegaly, rebound, tenderness Extremities exam: ABSENT: pedal edema Musculoskeletal exam: PRESENT: ambulatory Neurological exam: PRESENT: alert, awake, oriented to person, oriented to place, oriented to time, oriented to situation Psychiatric exam: PRESENT: appropriate affect, normal mood Skin exam: PRESENT: dry, intact, warm Results Laboratory Results: 10/02/19 05:35 10/04/19 05:20 10/04/19 05:20 Sodium 140.2 Potassium 3.7 Chloride 105 Carbon Dioxide 28 Anion Gap 7 BUN 7 Creatinine 0.81 Est GFR ( Amer) > 60 Glucose 95 Calcium 9.2 Magnesium 1.0 L* 09/29/19 09/29/19 14:04 15:20 Creatine Kinase < 20 L Troponin I < 0.012 Impressions: Abdomen/Pelvis CT 09/29/19 00:00 IMPRESSION: 1. Severe hepatosplenomegaly is again demonstrated. There is mild diffuse hepatic steatosis. Nodular contour of the liver may indicate underlying hepatic cirrhosis. Clinical correlation is recommended. 2. Mildly prominent mesenteric lymph nodes may be reactive. PICC Line Insertion 10/02/19 00:00 IMPRESSION: SUCCESSFUL PLACEMENT OF A 5 FR DUAL LUMEN 36 CM PICC IN THE RIGHT BASILIC VEIN. Assessment and Plan - Diagnosis (1) Bacteremia due to methicillin susceptible Staphylococcus aureus (MSSA) Is this a current diagnosis for this admission?: Yes Plan: -Continue IV Ancef -repeated blood cultures ngtd; cleared to get PICC 10/01 -4 weeks of IV antibiotics according to infectious disease during his last visit. 10/03/2019 Antibiotics continued, tolerated well 10/04/2019 Told the patient yet again that he cannot take oral antibiotics to clear his bloodstream infection. Continue antibiotics as ordered. I suspect he might leave AMA in the near future which he has done previously. (2) PUD (peptic ulcer disease) Is this a current diagnosis for this admission?: Yes Plan: History of ulcer seen on EGD in the past per patient Was previously prescribed omeprazole but did not take this consistently Start Protonix oral daily, Carafate continued Check H. pylori stool antigen and treat if positive 10/03/2019 Still needs stool sample to be sent for H. pylori antigen Per patient abdominal pain is much better today 10/04/2019 It seems that 1 of the lab staff has canceled my H. pylori stool antigen order for an unknown reason. They do not have the authority to cancel my orders without at least informing me of this. The order will be put back in by the nurses and a sample will be collected the next time a stool sample is available. THIS IS AN AVOIDABLE DELAY OF CARE. DO NOT CANCEL MY ORDERS WITHOUT INFORMING ME. (3) Chronic narcotic dependence Is this a current diagnosis for this admission?: Yes Plan: Gradually wean narcotics by lowering dose every 2 to 3 days Patient does not appear to be uncomfortable or in any significant pain but is still requesting narcotics and benzos as frequently as they are available even when he is somnolent and falling asleep; discussed the case with the nurse will use the available pain medications judiciously/sparingly Discussed patient's narcotics dependence with him in great detail and he agrees that he would like to be eventually tapered off of narcotics as he had been clean for multiple years when taking Suboxone outpatient, he lost his health benefits and could no longer afford the frequent visits 10/04/2019 Appears to be sleeping comfortably each day. He repeatedly asks for more narcotics and more benzos despite his overall comfortable appearance and his agreement that his abdominal pain is improving. We will continue tapering his narcotics and benzos every 2 to 3 days. (4) History of intravenous drug abuse Is this a current diagnosis for this admission?: Yes (5) Abdominal pain Qualifiers: Abdominal location: upper abdomen, unspecified Qualified Code(s): R10.10 - Upper abdominal pain, unspecified Is this a current diagnosis for this admission?: Yes (6) Alcohol dependence with withdrawal Qualifiers: Is this a current diagnosis for this admission?: Yes (7) Cirrhosis Qualifiers: Is this a current diagnosis for this admission?: Yes (8) Essential hypertension Is this a current diagnosis for this admission?: Yes (9) GERD (gastroesophageal reflux disease) Is this a current diagnosis for this admission?: Yes - Plan Summary Summary: Patient will be admitted to the medical floor where he received routine supportive and symptomatic cares. He will be started on IV Ancef 2 g every 6 hours initially until blood culture results are available. He will receive morphine sulfate 2 to 4 mg IV every 2 hours as needed for pain control. He will receive Valium 5 mg IV every 4 hours for prevention of alcohol withdrawal symptoms. Additionally he will use Valium 10 mg IV every hour as needed for severe alcohol withdrawal symptoms. He will be on a clear liquid diet initially with diet advancement as tolerated. He will receive IV fluids utilizing lactated Ringer's at 167 mL/h for initial therapy until he is better able to tolerate oral intake. CBCs, metabolic profiles, magnesium levels, repeat blood cultures and liver function studies will be obtained as needed. Smoking cessation is advised and counseled briefly at the bedside. A nicotine replacement patch is available for the patient's use, if he so desires. Alcohol use cessation is advised and counseled briefly at the bedside. IV drug abuse cessation is advised and counseled briefly at the bedside. A social worker masters consultation will be obtained to assess the patient's needs and to aid the patient with appropriate post hospital follow-up and care. - Time Time Spent with patient: 25-34 minutes - Inpatient Certification Medical Necessity: Significant Comorbidiites Make Outpatient Treatment Too Risky, Need Close Monitoring Due to Risk of Patient Decompensation, Need for IV Antibiotics
[2019-10-05] MEDS: CEFAZOLIN SODIUM 2 GM in DEXTROSE 5%-WATER 100 ML IV SCH ×2 (00:54→06:37)
[2019-10-05] MEDS: OXYCODONE HCL IR 5 MG TABLET PO PRN ×2 (00:56→06:38)
[2019-10-05] MEDS: DIAZEPAM 5 MG TABLET PO PRN ×2 (00:56→06:38)
[2019-10-05] MEDS: MORPHINE SULFATE 10 MG/ML INJ IV PRN ×2 (03:35→09:57)
[2019-10-05] MEDS: HEPARIN SOD (PORCINE) 5,000 UNIT/ML 1 ML VIAL SUBCUT SCH (06:38)
[2019-10-05] MEDS: PANTOPRAZOLE SODIUM 20 MG TABLET.DR PO SCH (06:38)
[2019-10-05] MEDS: LIPASE/PROTEASE/AMYLASE 1 CAP CAPSULE.DR PO SCH (07:46)
[2019-10-05] MEDS: METOCLOPRAMIDE HCL INJ/PF 10 MG/2 ML SDV IV SCH ×2 (07:46→10:54)
[2019-10-05] MEDS: SUCRALFATE 1 GM TABLET PO SCH ×2 (07:46→10:54)
[2019-10-05] MEDS: FAMOTIDINE INJ/PF 20 MG/2 ML SDV IV SCH (09:57)
[2019-10-05] MEDS: NORMAL SALINE 10 ML SDV (SCHEDULED) IV SCH (09:57)
[2019-10-05 10:07] VITALS: BP 132/77
[2019-10-05] MEDS ORDERED: LIDOCAINE 5% (700 MG) TRANSDERMAL ADH..PATCH TP PRN (10:14)
[2019-10-05] MEDS ORDERED: MORPHINE SULFATE 10 MG/ML INJ IV PRN (10:15)
[2019-10-05] MEDS ORDERED: MAGNESIUM OXIDE 400 MG TABLET PO SCH (10:30)
--- NOTE | 2019-10-05 15:36 | Left Against Medical Advice ---
Against Medical Advice Admission Date/Time: 09/29/19 19:53 Primary Care Provider: Date of Patient Emigration: 10/05/19 - Diagnosis: (1) Bacteremia due to methicillin susceptible Staphylococcus aureus (MSSA) Is this a current diagnosis for this admission?: Yes (2) PUD (peptic ulcer disease) Is this a current diagnosis for this admission?: Yes (3) Chronic narcotic dependence Is this a current diagnosis for this admission?: Yes (4) History of intravenous drug abuse Is this a current diagnosis for this admission?: Yes (5) Abdominal pain Is this a current diagnosis for this admission?: Yes (6) Alcohol dependence with withdrawal Is this a current diagnosis for this admission?: Yes (7) Cirrhosis Is this a current diagnosis for this admission?: Yes (8) Essential hypertension Is this a current diagnosis for this admission?: Yes (9) GERD (gastroesophageal reflux disease) Is this a current diagnosis for this admission?: Yes - Summary: Summary: Please see Admission and Progress Notes as well. RAMBO MARTINEZ is a 34 M, who LEFT AGAINST MEDICAL ADVICE. Of note, patient's magnesium was 0.9 when he left [facility]. I discussed his severe hypomagnesemia with him and he stated he was not concerned about this and he would take oral magnesium at home. He refused to stay for further treatment of this and states he will follow-up with his primary care doctor if he needs further treatment. I called the patient after he left in order to discuss this with him further but he did not answer his phone. The Patient was admitted on 09/29/19 19:53.
== END 2019-10-05 11:54 | disposition left against medical advice (07) | DRG 872 ==
LOC: ER 13:57 → EH 19:53 → 4S 20:44
PROVIDERS: ADMIT Emergency Medicine; ATTEND Internal Medicine
PROC: 02HV33Z Insertion of Infusion Device into Superior Vena Cava, Percutaneous Approach (ICD-10-PCS; principal; 2019-10-02)
PROC: B518ZZA Fluoroscopy of Superior Vena Cava, Guidance (ICD-10-PCS; 2019-10-02)
PROC: B548ZZA Ultrasonography of Superior Vena Cava, Guidance (ICD-10-PCS; 2019-10-02)
DX: R78.81 Bacteremia (principal); K86.1 Other chronic pancreatitis; F10.230 Alcohol dependence with withdrawal, uncomplicated; F11.20 Opioid dependence, uncomplicated; B95.61 Methicillin susceptible Staphylococcus aureus infection as the cause of diseases classified elsewhere; R10.9 Unspecified abdominal pain; B19.20 Unspecified viral hepatitis C without hepatic coma; K27.9 Peptic ulcer, site unspecified, unspecified as acute or chronic, without hemorrhage or perforation; K21.9 Gastro-esophageal reflux disease without esophagitis; E83.42 Hypomagnesemia; E78.00 Pure hypercholesterolemia, unspecified; I10 Essential (primary) hypertension; I88.0 Nonspecific mesenteric lymphadenitis; F31.9 Bipolar disorder, unspecified; F17.210 Nicotine dependence, cigarettes, uncomplicated; Y90.1 Blood alcohol level of 20-39 mg/100 ml; Z86.73 Personal history of transient ischemic attack (TIA), and cerebral infarction without residual deficits
CPT/HCPCS: 36415; 36573; 74177; 80048; 80053; 80307; 81001; 82140; 82150; 82550; 83605; 83690; 83735; 84484; 85025; 85027; 85610; 87040; 87070; 87338; 87804; 87880; 93005; 93010; 96374; 96375; 99285; J0690; J1642; J1644; J2270; J2550; J2765; J3360; J3475; J3490; J7060; J7121; S0028; S0032

== ENCOUNTER 2019-10-15 18:31 | Emergency (ER) | payer SELFPAY ==
[2019-10-15] MEDS ORDERED: NORMAL SALINE 1000 ML 1,000 ML IV ONE (19:00)
[2019-10-15] MEDS ORDERED: THIAMINE HCL 100 MG, FOLIC ACID 1 MG in NORMAL SALINE 250 ML IV ONE (19:01)
[2019-10-15] MEDS ORDERED: MVI, ADULT NO.1 WITH VIT K INJ 10 ML VIAL IV ONE (19:01)
[2019-10-15] MEDS ORDERED: MORPHINE SULFATE 10 MG/ML INJ IV ONE ×2 (19:02→21:06)
[2019-10-15] MEDS ORDERED: ONDANSETRON HCL INJ/PF 4 MG/2 ML SDV IV ONE (19:02)
--- NOTE | 2019-10-15 19:05 | ER Document Report ---
ED GI/ - General TRAVEL OUTSIDE OF THE [place] IN LAST 30 DAYS: No <TANMAY VILLA - Last Filed: 10/15/19 19:48> <SUSAN LAI - Last Filed: 10/15/19 23:27> - General Stated Complaint: ABDOMINAL PAIN Time Seen by Provider: 10/15/19 18:45 Notes: CHIEF COMPLAINT: Abdominal pain for 5 months HPI: 34-year-old alcoholic male with history of cirrhosis presenting for epigastric abdominal pain daily for 5 months states pain was worse today prompting his visit to the ER. States he drinks approximately half a gallon of whiskey daily last drink was approximately 12:00 today. Has not seen a primary care provider for evaluation of his symptoms ROS: See HPI - all other systems were reviewed and are otherwise negative Constitutional: no fever Eyes: no drainage, no blurred vision ENT: no runny nose, no sore throat Cardiovascular: no chest pain Resp: no SOB, no cough GI: no vomiting, no diarrhea, + abdominal pain : no dysuria Integumentary: no rash Allergy: no hives Musculoskeletal: no extremity pain or swelling Neurological: no numbness/tingling, no weakness MEDICATIONS: I agree with the patient medications as charted by the RN. ALLERGIES: I agree with the allergies as charted by the RN. PAST MEDICAL HISTORY/PAST SURGICAL HISTORY: Reviewed and agree as charted by RN. SOCIAL HISTORY: Reviewed and agree as charted by RN. FAMILY HISTORY: No significant familial comorbid conditions directly related to patient complaint EXAM: Reviewed vital signs as charted by RN. CONSTITUTIONAL: Alert and oriented and responds appropriately to questions. Well-appearing; well-nourished HEAD: Normocephalic; atraumatic EYES: PERRL; Conjunctivae clear, sclerae non-icteric ENT: normal nose; no rhinorrhea; moist mucous membranes; pharynx without lesions noted, no uvula edema or deviation, no tonsillar hypertrophy, phonation normal NECK: Supple without meningismus; non-tender; no cervical lymphadenopathy, no masses CARD: Tachycardic; no murmurs, no clicks, no rubs, no gallops; symmetric distal pulses RESP: Normal chest excursion without splinting or tachypnea; breath sounds clear and equal bilaterally; no wheezes, no rhonchi, no rales, pulse oximetry ABD/GI: Normal bowel sounds; non-distended; soft, mild epigastric tenderness on palpation, no rebound, no guarding; no palpable organomegaly or masses. BACK: The back appears normal and is non-tender to palpation, there is no CVA tenderness EXT: Normal ROM in all joints; non-tender to palpation; no cyanosis, no effusions, no edema SKIN: Normal color for age and race; warm; dry; good turgor; no acute lesions noted NEURO: Moves all extremities equally; Motor and sensory function intact PSYCH: The patient's mood and manner are appropriate. Grooming and personal hygiene are appropriate. MDM: 34-year-old alcoholic male presenting with epigastric pain. Will obtain screening labs to evaluate for pancreatitis, differential would also include alcoholic gastritis, cirrhosis or liver failure (TANMAY VILLA) - Related Data Allergies/Adverse Reactions: carisoprodol [From Soma] Allergy (Verified 09/29/19 14:26) Sulfa (Sulfonamide Antibiotics) Allergy (Verified 09/29/19 14:26) Past Medical History - Social History Family History: CAD, CVA, Hyperlipidemia, Hypertension, Malignancy, Thyroid Disfunction - Past Medical History Cardiac Medical History: Reports: Hx Hypercholesterolemia, Hx Hypertension Denies: Hx Atrial Fibrillation, Hx Congestive Heart Failure, Hx Coronary Artery Disease, Hx DVT, Hx Heart Attack, Hx Peripheral Vascular Disease, Hx Pulmonary Embolism Pulmonary Medical History: Reports: Hx Bronchitis Denies: Hx Asthma, Hx COPD Neurological Medical History: Reports: Hx Cerebrovascular Accident - States he has had a TIA. Denies: Hx Migraine, Hx Seizures Endocrine Medical History: Denies: Hx Diabetes Mellitus Type 1, Hx Diabetes Mellitus Type 2, Hx Hyperthyroidism, Hx Hypothyroidism Renal/ Medical History: Denies: Hx Peritoneal Dialysis GI Medical History: Reports: Hx Cirrhosis, Hx Gastritis, Hx Hepatitis - Hepatitis-C, Hx Ulcer, Hx Endoscopy. Denies: Hx Crohn's Disease, Hx Gastroesophageal Reflux Disease, Hx Ulcerative Colitis Musculoskeletal Medical History: Reports Hx Arthritis, Reports Hx Gout, Reports Hx Musculoskeletal Deformity, Reports Hx Musculoskeletal Trauma Skin Medical History: Denies Hx Eczema, Denies Hx Psoriasis Psychiatric Medical History: Reports: Hx Anxiety, Hx Bipolar Disorder, Hx Depression, Hx Post Traumatic Stress Disorder Traumatic Medical History: Reports: Hx Fractures - Right hand Infectious Medical History: Reports: Hx Hepatitis - Hepatitis-C Past Surgical History: Reports: Hx Orthopedic Surgery - R hand - Immunizations Immunizations up to date: Yes Hx Diphtheria, Pertussis, Tetanus Vaccination: Yes <TANMAY VILLA - Last Filed: 10/15/19 19:48> - Social History Smoking Status: Current Every Day Smoker Drug Abuse: Methamphetamine, Prescription drugs <SUSAN LAI - Last Filed: 10/15/19 23:27> Physical Exam - Vital signs Vitals: Temp Pulse Resp BP Pulse Ox 98.4 F 116 H 18 117/62 93 10/15/19 18:38 10/15/19 18:38 10/15/19 18:38 10/15/19 18:38 10/15/19 18:38 Course - Laboratory Result Diagrams: 10/15/19 18:40 10/15/19 18:40 <TANMAY VILLA - Last Filed: 10/15/19 19:48> - Laboratory Result Diagrams: 10/15/19 18:40 10/15/19 18:40 <SUSAN LAI - Last Filed: 10/15/19 23:27> - Re-evaluation Re-evalutation: 10/15/19 19:47 Patient was noted to have hypomagnesemia which he has chronically. Will give IV magnesium. Patient is also noted to have an alcohol level of 132. Awaiting CT imaging. 10/15/19 19:48 report will be given to oncoming shift to follow and disposition (TANMAY VILLA) 10/15/19 Patient with a history of alcoholic cirrhosis, alcoholic gastritis, peptic ulcer disease, pancreatitis. He also had a history of bacteremia with MSSA although his most recent blood cultures were negative. He does not have a fever here, he does not report fevers at home, he does not have leukocytosis, his work-up is essentially baseline and actually improved from prior. Blood cultures were r epeated and pending. Patient with magnesium of 1.2, has been given IV magnesium 2 g here and is reportedly on oral magnesium at home. Serum alcohol 132, drug screen positive for benzodiazepines, opiates, amphetamines. Finally obtained the CAT scan, this shows no acute findings except for mild rig ht-sided hydronephrosis. There is no obstructing stone now or previously. Patient has no flank pain, patient is tolerating p.o. without difficulty. On reevaluation patient stating he is scared he is going to withdrawal soon but otherwise he has no complaints. He was given a dose of Valium, his heart rate is not elevated, he is not diaphoretic, tremulous, or confused. I discussed with Dr. Muniz. Recommendation is for oral magnesium, treatment for gastritis/peptic ulcers, urology follow-up, and return precautions. These were discussed with patient in detail. Patient states understanding and agreement. Stable and well-appearing at time of discharge. (SUSAN LAI) - Vital Signs Vital signs: Temp Pulse Resp BP Pulse Ox 98.3 F 96 15 110/59 L 93 10/15/19 22:58 10/15/19 22:58 10/15/19 22:58 10/15/19 22:58 10/15/19 22:58 - Laboratory Laboratory results interpreted by me: 10/15/19 10/15/19 10/15/19 18:40 18:40 18:40 RBC 3.99 L Hgb 11.8 L Hct 34.4 L RDW 15.8 H Plt Count 127 L Lymph % (Auto) 11.4 L Seg Neutrophils % 82.8 H Sodium 133.7 L Potassium 3.4 L Chloride 96 L BUN 6 L Glucose 125 H Magnesium 1.2 L* Total Bilirubin 1.5 H Direct Bilirubin 0.7 H Alkaline Phosphatase 382 H Total Protein 8.5 H Discharge <TANMAY VILLA - Last Filed: 10/15/19 19:48> <SUSAN LAI - Last Filed: 10/15/19 23:27> - Discharge Clinical Impression: Alcohol abuse Abdominal pain Qualifiers: Abdominal location: generalized Qualified Code(s): R10.84 - Generalized abdominal pain Alcohol dependence Qualifiers: Substance use status: unspecified alcohol-induced disorder Qualified Code(s): F10.29 - Alcohol dependence with unspecified alcohol-induced disorder Condition: Stable Disposition: HOME, SELF-CARE Additional Instructions: Your evaluation shows low magnesium, this is been supplemented, please take the prescribed magnesium. Take Carafate and Pepcid for peptic ulcers and gastritis as we discussed, take Phenergan if needed for nausea. Start with clear fluids and bland diet. Stop drinking alcohol. Follow-up with the detox center referral. Call listed referral below. Your work-up does show a little bit of swelling in your kidney but there is no obstructing stone or concerning finding. Follow-up with urology for additional evaluation and management of this. Return to the emergency department for any concerning symptoms including vomiting, fever, severe worsening pain, black stools, or any other concerning or worsening symptoms. [facility] [address] [place] [id number] Hours: Open 24 hours [facility] [address] [address] [facility] [place] [id number] Prescriptions: Sucralfate [Carafate 1 gm Tablet] 1 gm PO QID #20 tablet Magnesium Oxide 250 mg PO DAILY #30 tablet Famotidine [Pepcid 20 mg Tablet] 20 mg PO BID #20 tablet Promethazine HCl [Phenergan 25 mg Tablet] 25 mg PO Q6H PRN #20 tablet PRN Reason:
[2019-10-15 19:09] LABS: ABSOLUTE BASOPHILS # (AUTO) 0.1 10^3/uL (0.0-0.2); ABSOLUTE LYMPHOCYTES (AUTO) 0.7 10^3/uL (0.5-4.7); ABSOLUTE MONOCYTES (AUTO) 0.3 10^3/uL (0.1-1.4); ABSOLUTE NEUT (AUTO) 5.3 10^3/uL (1.7-8.2); BASOPHILS % (AUTO) 0.8 % (0-2); EOSINOPHILS % (AUTO) 0.3 % (0-6); HEMATOCRIT 34.4 % (37.9-51.0); HEMOGLOBIN 11.8 g/dL (13.5-17.0); LYMPHOCYTES % (AUTO) 11.4 % (13-45); MEAN CORPUSCULAR HEMOGLOBIN 29.5 pg (27.0-33.4); MEAN CORPUSCULAR HGB CONC 34.3 g/dL (32.0-36.0); MEAN CORPUSCULAR VOLUME 86 fl (80-97); MONOCYTES % (AUTO) 4.7 % (3-13); PLATELET COUNT 127 10^3/uL (150-450); RED BLOOD COUNT 3.99 10^6/uL (4.35-5.55); RED CELL DISTRIBUTION WIDTH 15.8 % (11.5-14.0); SEGMENTED NEUTROPHILS % (AUTO) 82.8 % (42-78); TOTAL CELLS COUNTED % (AUTO) 100 %; WHITE BLOOD COUNT 6.4 10^3/uL (4.0-10.5)
[2019-10-15 19:21] LABS: APPEARANCE,URINE CLEAR; BILIRUBIN,URINE NEGATIVE (NEGATIVE); COLOR,URINE YELLOW; GLUCOSE, URINE NEGATIVE (NEGATIVE); KETONES,URINE NEGATIVE (NEGATIVE); LEUKOCYTE ESTERASE,URINE NEGATIVE (NEGATIVE); NITRITE,URINE NEGATIVE (NEGATIVE); PROTEIN,URINE NEGATIVE (NEGATIVE); URINE SPECIFIC GRAVITY 1.006; UROBILINOGEN,URINE NEGATIVE mg/dL (<2.0)
[2019-10-15 19:28] LABS: ALBUMIN 4.1 g/dL (3.5-5.0); ALCOHOL 132 mg/dL (NONE DETECTED); ALKALINE PHOSPHATASE 382 U/L (38-126); ANION GAP 16 (5-19); ASPARTATE AMINO TRANSFERASE 41 U/L (17-59); BILIRUBIN,DIRECT 0.7 mg/dL (0.0-0.4); BILIRUBIN,TOTAL 1.5 mg/dL (0.2-1.3); BLOOD UREA NITROGEN 6 mg/dL (7-20); CALCIUM 9.6 mg/dL (8.4-10.2); CARBON DIOXIDE 22 mmol/L (22-30); CHLORIDE 96 mmol/L (98-107); GLUCOSE 125 mg/dL (75-110); POTASSIUM 3.4 mmol/L (3.6-5.0); TOTAL PROTEIN 8.5 g/dL (6.3-8.2)
[2019-10-15 19:35] LABS: URINE BARBITURATES SCREEN NEGATIVE; URINE COCAINE SCREEN NEGATIVE; URINE MARIJUANA (THC) SCREEN NEGATIVE; URINE METHADONE SCREEN NEGATIVE; URINE PHENCYCLIDINE SCREEN NEGATIVE
[2019-10-15 19:36] LABS: URINE AMPHETAMINES SCREEN UNCONFIRMED POSITIVE; URINE BENZODIAZEPINES SCREEN UNCONFIRMED POSITIVE
[2019-10-15] MEDS ORDERED: NORMAL SALINE 1000 ML 1,000 ML with THIAMINE HCL 100 MG, MVI, ADULT NO.1 WITH VIT K 10 ... IV ONE ×4 (20:30)
[2019-10-15] MEDS ORDERED: FAMOTIDINE 20 MG TABLET PO ONE (21:05)
[2019-10-15] MEDS ORDERED: SUCRALFATE 1 GM TABLET PO ONE (21:05)
--- NOTE | 2019-10-15 21:14 | RADIOLOGY REPORT (SQ) ---
CLINICAL INDICATION: epigastric pain. . TECHNIQUE: Contrast enhanced spiral axial CT imaging was obtained of the abdomen and pelvis with multiplanar reconstructions. This exam was performed according to our departmental dose-optimization program, which includes automated exposure control, adjustment of the mA and/or kV according to patient size and/or use of iterative reconstruction techniques. COMPARISON: September 29, 2019. CORRELATION: None. FINDINGS: Abdomen: The lung bases demonstrate mild chronic change. The heart is top normal but stable. No evidence of pleural or pericardial fluid. The liver is heterogeneous. It is enlarged at 22 cm craniocaudad. This is similar to prior.. The gallbladder is nondistended without inflammatory change. The pancreas is unremarkable. The spleen is enlarged measuring 20.2 cm anteroposterior, similar to prior. Spleen is also mildly heterogeneous. The portal vein is patent.. The adrenals are unremarkable. The kidneys demonstrate mild right hydronephrosis and hydroureter. Prominent left extrarenal pelvis. No evidence of urolithiasis. Phleboliths within the pelvis.. There is no evidence of free air. No free fluid. No bulky adenopathy. Abdominal aorta is nonaneurysmal. Pelvis: The bowel is nonobstructed. The bowel is unopacified with oral contrast. Pelvic contents are unremarkable. The appendix is normal. Visualized bones are unremarkable. IMPRESSION: Right hydronephrosis and hydroureter, adverse change from prior. Other than the mild physiologic distention of the urinary bladder, cause for this is not seen. There is no evidence of urolithiasis. Mildly prominent extra renal pelvis, which also appears more prominent.. Medical hepatic disease. Hepatomegaly. Splenomegaly. These findings are similar to prior. The portal vein is patent
[2019-10-15] MEDS: MAGNESIUM SULFATE/D5W 1 GM/100 ML RTUPB IV SCH ×2 (21:35→23:19)
[2019-10-15 23:00] VITALS: BP 110/59
[2019-10-15] MEDS ORDERED: DIAZEPAM 5 MG TABLET PO ONE (23:07)
== END 2019-10-16 01:45 | disposition home or self-care (01) ==
LOC: ER 18:31
DX: F10.29 Alcohol dependence with unspecified alcohol-induced disorder (principal); R10.33 Periumbilical pain; R10.84 Generalized abdominal pain; E78.00 Pure hypercholesterolemia, unspecified; I10 Essential (primary) hypertension; Z86.73 Personal history of transient ischemic attack (TIA), and cerebral infarction without residual deficits; Z88.2 Allergy status to sulfonamides; Z86.19 Personal history of other infectious and parasitic diseases
CPT/HCPCS: 96376; 99284; 96375; 96365; 96366; 96368; 36415; 87040; 80307 ×2; 82140; 83690; 83735; 85025; 80053; 81001; 74177; J3490 ×2; J2270; J3475; J3411; J2405; J7030

== ENCOUNTER 2019-12-19 22:48 | Inpatient (IN) | payer OTHER ==
[2019-12-19 23:12] LABS: ABSOLUTE LYMPHOCYTES (AUTO) 0.4 10^3/uL (0.5-4.7); ABSOLUTE MONOCYTES (AUTO) 0.1 10^3/uL (0.1-1.4); ABSOLUTE NEUT (AUTO) 3.3 10^3/uL (1.7-8.2); BASOPHILS % (AUTO) 0.2 % (0-2); EOSINOPHILS % (AUTO) 0.2 % (0-6); HEMATOCRIT 34.3 % (37.9-51.0); HEMOGLOBIN 11.6 g/dL (13.5-17.0); LYMPHOCYTES % (AUTO) 9.4 % (13-45); MEAN CORPUSCULAR HGB CONC 33.7 g/dL (32.0-36.0); MEAN CORPUSCULAR VOLUME 86 fl (80-97); MONOCYTES % (AUTO) 2.4 % (3-13); PLATELET COUNT 100 10^3/uL (150-450); RED BLOOD COUNT 3.99 10^6/uL (4.35-5.55); RED CELL DISTRIBUTION WIDTH 15.1 % (11.5-14.0); SEGMENTED NEUTROPHILS % (AUTO) 87.8 % (42-78); TOTAL CELLS COUNTED % (AUTO) 100 %; WHITE BLOOD COUNT 3.8 10^3/uL (4.0-10.5)
[2019-12-19 23:18] LABS: INTERNATIONAL RATION (INR) 1.15; PROTHROMBIN TIME 14.8 SEC (11.4-15.4)
[2019-12-19 23:28] LABS: ALBUMIN 4.1 g/dL (3.5-5.0); ALCOHOL 108 mg/dL (NONE DETECTED); ALKALINE PHOSPHATASE 401 U/L (38-126); ANION GAP 13 (5-19); ASPARTATE AMINO TRANSFERASE 48 U/L (17-59); BILIRUBIN,DIRECT 0.7 mg/dL (0.0-0.4); BILIRUBIN,TOTAL 1.6 mg/dL (0.2-1.3); BLOOD UREA NITROGEN 7 mg/dL (7-20); CALCIUM 9.2 mg/dL (8.4-10.2); CARBON DIOXIDE 21 mmol/L (22-30); CHLORIDE 98 mmol/L (98-107); GLUCOSE 97 mg/dL (75-110); POTASSIUM 3.8 mmol/L (3.6-5.0); TOTAL PROTEIN 8.6 g/dL (6.3-8.2)
[2019-12-19 23:32] LABS: ACETAMINOPHEN < 10 ug/mL (10-30); SALICYLATE < 1.0 mg/dL (2.0-20.0)
[2019-12-19 23:39] LABS: CREATINE KINASE MB 1.18 ng/mL (<4.55)
[2019-12-19 23:40] LABS: TROPONIN I < 0.012 ng/mL
[2019-12-19] MEDS ORDERED: LORAZEPAM INJ 2 MG/1 ML VIAL IV ONE (23:45)
[2019-12-19] MEDS ORDERED: MORPHINE SULFATE 10 MG/ML INJ IV ONE (23:45)
[2019-12-19] MEDS ORDERED: ONDANSETRON HCL INJ/PF 4 MG/2 ML SDV IV ONE (23:45)
[2019-12-19] MEDS ORDERED: KETOROLAC TROMETHAMINE INJ/PF 30 MG/1 ML SDV IV ONE (23:45)
[2019-12-20] MEDS: NORMAL SALINE 1000 ML 1,000 ML IV PRN ×2 (00:10→01:04)
--- NOTE | 2019-12-20 00:50 | RADIOLOGY REPORT (SQ) ---
EXAM DESCRIPTION: XR CHEST 1 VIEW COMPLETED DATE/TME: 12/19/2019 22:56 CLINICAL HISTORY: 34 years, Male, sob COMPARISON: 09/21/2019 chest NUMBER OF VIEWS: 1 TECHNIQUE: Portable chest LIMITATIONS: None. FINDINGS: The heart size is normal. Low lung volumes. Lungs are clear. No pneumothorax IMPRESSION: No acute cardiopulmonary process copyright 2010 [employer]- All Rights Reserved
[2019-12-20 01:32] LABS: ARTERIAL BLOOD BASE EXCESS -5.2 mmol/L; ARTERIAL BLOOD H2CO3 0.82 mmol/L (1.05-1.35); ARTERIAL BLOOD O2 SATURATION 91.2 % (94-98); ARTERIAL BLOOD PCO2 27.4 mmHg (35-45); ARTERIAL BLOOD PH 7.44 (7.35-7.45); ARTERIAL BLOOD PO2 57.2 mmHg (80-100); ARTERIAL BLOOD TOTAL CO2 18.9 mmol/L (23-27)
[2019-12-20 01:33] LABS: ARTERIAL BLOOD FIO2 ROOM AIR
[2019-12-20] MEDS ORDERED: LORAZEPAM INJ 2 MG/1 ML VIAL IV ONE ×2 (02:13→02:14)
--- NOTE | 2019-12-20 02:58 | RADIOLOGY REPORT (SQ) ---
CLINICAL HISTORY: pain. ETOH abuse reports drinking a half gallon everyday COMPARISON: 10/15/2019. TECHNIQUE: CT ABDOMEN PELVIS WITH IV CONTRAST on 12/19/2019 10:57 PM CDT This exam was performed according to our departmental dose-optimization program, which includes automated exposure control, adjustment of the mA and/or kV according to patient size and/or use of iterative reconstruction technique. FINDINGS: Lower lungs are clear. Abdomen: Liver is enlarged and fatty in attenuation. There is no biliary dilatation. Gallbladder is normal in appearance. Spleen is massively enlarged measuring up to 20 cm. The adrenal glands and kidneys are unremarkable. Abdominal aorta is normal in course and caliber without aneurysm. There is no free air. There is no retroperitoneal adenopathy. Pelvis: There is no bowel obstruction. Urinary bladder is unremarkable. There is no free fluid. Appendix is normal. Appendix is normal. Skeleton: There are no acute osseous findings. No suspicious bony lesions. IMPRESSION: No definite acute findings. No significant change.
[2019-12-20] MEDS ORDERED: ONDANSETRON HCL INJ/PF 4 MG/2 ML SDV IV ONE (03:00)
[2019-12-20] MEDS ORDERED: ACETAMINOPHEN 325 MG TABLET PO ONE (03:00)
[2019-12-20] MEDS ORDERED: IBUPROFEN 600 MG TABLET PO ONE (03:52)
[2019-12-20 03:55] LABS: AMORPHOUS SEDIMENT,URINE TRACE /HPF; APPEARANCE,URINE TURBID; BILIRUBIN,URINE SMALL (NEGATIVE); COLOR,URINE YELLOW; GLUCOSE, URINE NEGATIVE (NEGATIVE); KETONES,URINE NEGATIVE (NEGATIVE); LEUKOCYTE ESTERASE,URINE NEGATIVE (NEGATIVE); NITRITE,URINE NEGATIVE (NEGATIVE); PROTEIN,URINE NEGATIVE (NEGATIVE); URINE SPECIFIC GRAVITY 1.021
[2019-12-20] MEDS ORDERED: NORMAL SALINE 1000 ML 1,000 ML IV ONE (04:02)
[2019-12-20 04:07] LABS: URINE BARBITURATES SCREEN NEGATIVE; URINE COCAINE SCREEN NEGATIVE; URINE MARIJUANA (THC) SCREEN NEGATIVE; URINE METHADONE SCREEN NEGATIVE; URINE PHENCYCLIDINE SCREEN NEGATIVE
[2019-12-20 04:08] LABS: URINE BENZODIAZEPINES SCREEN UNCONFIRMED POSITIVE
--- NOTE | 2019-12-20 04:17 | ER Document Report ---
ED General - General Mode of Arrival: Medic Information source: Patient, Emergency Med Personnel Cannot obtain history due to: Uncooperative, Altered mental status TRAVEL OUTSIDE OF THE [place] IN LAST 30 DAYS: No - HPI Onset: Other - unknown Onset/Duration: Worse Quality of pain: Throbbing Severity: Moderate Pain Level: 4 Associated symptoms: Fever, Nausea, Vomiting, Shortness of breath, Slow to respond, Sweating Exacerbated by: Supine, Sitting, Standing, Movement, Walking, Coughing, Deep breathing, Food Relieved by: Denies Similar symptoms previously: Yes Recently seen / treated by doctor: No <JEREMIAH CONCEPCION - Last Filed: 12/20/19 06:42> <SANDRA HODGSON - Last Filed: 12/20/19 07:32> - General Chief Complaint: Fever Stated Complaint: FEVER Notes: Patient is a 34-year-old male presenting to the emergency department chief complaint of fever and altered mental status. EMS state that the patient had a fever of 103 and they also checked a lactic acid in route and stated that it was 8. EMS also stated that they gave the patient 1 g of Rocephin IV. There was concern for sepsis. On presentation patient is verbally argumentative and combative and is altered. Patient refuses to answer any questions as to condition when it started and any other pertinent information that may help direct his care. Review of systems is also similarly unobtainable for same reason. (JEREMIAH CONCEPCION) - Related Data Allergies/Adverse Reactions: carisoprodol [From Soma] Allergy (Verified 09/29/19 14:26) Sulfa (Sulfonamide Antibiotics) Allergy (Verified 09/29/19 14:26) Past Medical History - General Information source: Patient - Social History Smoking Status: Current Every Day Smoker Cigarette use (# per day): Yes Chew tobacco use (# tins/day): No Smoking Education Provided: Yes Frequency of alcohol use: Heavy Drug Abuse: None Family History: CAD, CVA, Hyperlipidemia, Hypertension, Malignancy, Thyroid Disfunction - Past Medical History Cardiac Medical History: Reports: Hx Hypercholesterolemia, Hx Hypertension Denies: Hx Atrial Fibrillation, Hx Congestive Heart Failure, Hx Coronary Artery Disease, Hx DVT, Hx Heart Attack, Hx Peripheral Vascular Disease, Hx Pulmonary Embolism Pulmonary Medical History: Reports: Hx Bronchitis Denies: Hx Asthma, Hx COPD Neurological Medical History: Reports: Hx Cerebrovascular Accident - States he has had a TIA. Denies: Hx Migraine, Hx Seizures Endocrine Medical History: Denies: Hx Diabetes Mellitus Type 1, Hx Diabetes Mellitus Type 2, Hx Hyperthyroidism, Hx Hypothyroidism Renal/ Medical History: Denies: Hx Peritoneal Dialysis GI Medical History: Reports: Hx Cirrhosis, Hx Gastritis, Hx Hepatitis - Hepatitis-C, Hx Ulcer, Hx Endoscopy. Denies: Hx Crohn's Disease, Hx Gastroesophageal Reflux Disease, Hx Ulcerative Colitis Musculoskeletal Medical History: Reports Hx Arthritis, Reports Hx Gout, Reports Hx Musculoskeletal Deformity, Reports Hx Musculoskeletal Trauma Skin Medical History: Denies Hx Eczema, Denies Hx Psoriasis Psychiatric Medical History: Reports: Hx Anxiety, Hx Bipolar Disorder, Hx Depression, Hx Post Traumatic Stress Disorder Traumatic Medical History: Reports: Hx Fractures - Right hand Infectious Medical History: Reports: Hx Hepatitis - Hepatitis-C Past Surgical History: Reports: Hx Orthopedic Surgery - R hand - Immunizations Immunizations up to date: Yes Hx Diphtheria, Pertussis, Tetanus Vaccination: Yes <JEREMIAH CONCEPCION - Last Filed: 12/20/19 06:42> Review of Systems - Review of Systems -: Yes ROS unobtainable due to patient's medical condition <JEREMIAH CONCEPCION - Last Filed: 12/20/19 06:42> - Review of Systems Notes: Review of systems is unobtainable secondary to patient's lack of cooperation and current medical condition. (JEREMIAH CONCEPCION) Physical Exam <JEREMIAH CONCEPCION - Last Filed: 12/20/19 06:42> - Vital signs Vitals: Temp 103.0 F H 12/19/19 22:48 - Notes Notes: PHYSICAL EXAMINATION: GENERAL: Patient is a 34-year-old disheveled male brought into the emergency [facility] by EMS secondary to fever and altered mental status HEAD: Atraumatic, normocephalic. EYES: Pupils equal round and reactive to light, extraocular movements intact, sclera anicteric, conjunctiva markedly injected. ENT: nares patent, oropharynx clear without exudates. Dry mucous membranes. NECK: Normal range of motion, supple without lymphadenopathy, no appreciable JVD LUNGS: Lungs clear to auscultation bilaterally and equal. No wheezes rales or rhonchi. However poor excursion HEART: Tachycardic rate and rhythm without murmurs ABDOMEN: Soft, distended and markedly tender, normal bowel sounds. Positive guarding guarding, no rebound. No masses appreciated. EXTREMITIES: Active full range of motion, no pitting or edema. No cyanosis. 2+ pulses x4 NEUROLOGICAL: Patient is alert to himself but otherwise uncooperative with neurologic exam. SKIN: Febrile and diaphoretic and intact. Normal turgor, no rashes or lesions noted. (JEREMIAH CONCEPCION) Course - Laboratory Result Diagrams: 12/19/19 22:47 12/19/19 22:47 - Diagnostic Test Radiology reviewed: Reports reviewed - EKG Interpretation by Me EKG shows normal: Sinus rhythm Rate: Tachycardia Rhythm: NSR When compared to previous EKG there are: Previous EKG unavailable <JEREMIAH CONCEPCION - Last Filed: 12/20/19 06:42> - Laboratory Result Diagrams: 12/19/19 22:47 12/19/19 22:47 <SANDRA HODGSON - Last Filed: 12/20/19 07:32> - Re-evaluation Re-evalutation: 12/20/19 06:46 While in the emergency department the patient has received antiemetics, pain medicine and Ativan for alcohol withdrawal patient is also received a total of 3 L of IV normal saline. Patient has been maintained on a vehicle monitor technician and been reevaluated multiple times while in emergency department. Patient has continued to be quite discomforted secondary to his abdominal pain patient originally presented markedly febrile and has had his temperature rechecked several times and most recently fever is down to 100 F. No exact etiology of the patient's fever has been determined at this time. Ultrasound of the abdomen shows gallbladder sludge without signs of cholecystitis. CT abdomen pelvis shows a markedly enlarged spleen per radiology but no other acute pathologies. Urine drug screen does show benzodiazepines and opiates however urine was obtained after patient was being treated. At this time patient is very concerning for alcohol withdrawal and possible delirium tremens. On initial presentation patient was quite confused and verbally combative but has become much more cooperative with exam. Patient will also be tested for coronavirus. (JEREMIAH CONCEPCION) - Vital Signs Vital signs: Temp Pulse Resp BP Pulse Ox 100 F 20 116/52 L 96 12/20/19 06:25 12/20/19 01:01 12/20/19 01:01 12/20/19 01:01 - Laboratory Laboratory results interpreted by me: 12/19/19 12/19/1912/19/20 22:47 22:47 00:25 WBC 3.8 L RBC 3.99 L Hgb 11.6 L Hct 34.3 L RDW 15.1 H Plt Count 100 L Lymph % (Auto) 9.4 L [place] % (Auto) 2.4 L Absolute Lymphs (auto) 0.4 L Seg Neutrophils % 87.8 H Carbonic Acid ABG pCO2 ABG pO2 ABG HCO3 ABG Total CO2 ABG O2 Saturation Sodium 132.2 L Carbon Dioxide 21 L Lactic Acid 2.2 H Total Bilirubin 1.6 H Direct Bilirubin 0.7 H Alkaline Phosphatase 401 H Total Protein 8.6 H Urine Blood Urine Bilirubin Urine Urobilinogen Salicylates < 1.0 L Acetaminophen < 10 L 12/20/19 12/20/19 01:25 02:26 WBC RBC Hgb Hct RDW Plt Count Lymph % (Auto) [place] % (Auto) Absolute Lymphs (auto) Seg Neutrophils % Carbonic Acid 0.82 L ABG pCO2 27.4 L ABG pO2 57.2 L ABG HCO3 18.0 L ABG Total CO2 18.9 L ABG O2 Saturation 91.2 L Sodium Carbon Dioxide Lactic Acid Total Bilirubin Direct Bilirubin Alkaline Phosphatase Total Protein Urine Blood SMALL H Urine Bilirubin SMALL H Urine Urobilinogen 4.0 H Salicylates Acetaminophen Discharge <JEREMIAH CONCEPCION - Last Filed: 12/20/19 06:42> - Discharge Admitting Provider: Ana Maria (Hospitalist) Unit Admitted: Medical Floor <SANDRA HODGSON - Last Filed: 12/20/19 07:32> - Discharge Clinical Impression: Alcohol abuse, Fever, Pancytopenia Anemia Qualifiers: Anemia type: unspecified type Qualified Code(s): D64.9 - Anemia, unspecified Abdominal pain Qualifiers: Abdominal location: generalized Qualified Code(s): R10.84 - Generalized abdominal pain Condition: Fair Disposition: ADMITTED OBSERVATION
[2019-12-20] MEDS ORDERED: MORPHINE SULFATE 10 MG/ML INJ IV ONE (04:32)
--- NOTE | 2019-12-20 05:40 | RADIOLOGY REPORT (SQ) ---
Ultrasound of the right upper quadrant of the abdomen: 12/20/2019 4:37 AM CDT Technique: Multiple grayscale color Doppler images of the right upper quadrant of the abdomen were obtained. Comparison: None available History: 34-year old patient with right upper quadrant abdominal pain. Findings: The visualized portions of the hepatic parenchyma appears diffusely heterogeneous and mildly echogenic. There may be underlying hepatomegaly. There is normal directional flow seen within the main portal vein. There is nonspecific gallbladder wall thickening with sludge. There may be some trace pericholecystic fluid. Sonographic Collazo's sign was negative. The common duct measures 2-3 mm. The right kidney measures up to 10.6 cm in length. The right kidney demonstrates normal cortical echogenicity with no evidence to suggest hydronephrosis. The visualized portions of the IVC and pancreatic head appear normal. The abdominal aorta is ectatic and measures up to 2.7 cm proximally. No free intraperitoneal fluid is seen. Impression: The liver has a heterogeneous appearance which can be seen with underlying hepatic disease. There is nonspecific gallbladder wall thickening with sludge. The common duct is within normal limits of size.
--- NOTE | 2019-12-20 07:51 | EKG REPORT ---
SEVERITY:- OTHERWISE NORMAL ECG - SINUS TACHYCARDIA : Confirmed by: Rory Valadez MD 20-Dec-2019 07:50:33
[2019-12-20] MEDS ORDERED: AZITHROMYCIN 250 MG TABLET PO ONE ×2 (09:27→17:00)
[2019-12-20] MEDS ORDERED: MAGNESIUM HYDROXIDE SUSP 30 ML UDCUP PO PRN (09:34)
[2019-12-20] MEDS ORDERED: ACETAMINOPHEN 325 MG TABLET PO PRN (09:34)
[2019-12-20] MEDS ORDERED: MAG HYDROX/AL HYDROX/SIMETH SUSP 30 ML UDCUP PO PRN (09:34)
[2019-12-20] MEDS ORDERED: VANCOMYCIN HCL 0 MG in DEXTROSE 5%-WATER 250 ML IV NR (09:45)
[2019-12-20 10:01] LABS: FERRITIN 50.2 ng/mL (17.9-464.0)
--- NOTE | 2019-12-20 10:01 | PDOC H&P ---
History of Present Illness Admission Date/PCP: 12/20/19 07:52 Patient complains of: Abdominal pain, nausea, vomiting and diarrhea. Alcoholism and chronic abdominal pain History of Present Illness: RAMBO MARTINEZ is a 34 year old male who drinks 1/2 gallon of whiskey daily. He has a history of hepatitis C, chronic liver disease likely from alcohol and viral hepatitis and currently has thickened gallbladder wall with trace pericholecystic fluid. He also reports that he has been intermittently having discomfort when urinating. He is noncompliant and tends to leave AGAINST MEDICAL ADVICE. His serum alcohol level was 104. He is thrombocytopenic, borderline neutropenic and anemic. He does have a slightly elevated d-dimer. His ferritin and lactate dehydrogenase levels are pending. He was noted to have splenomegaly by CT scan. He does meet sepsis criteria and is being covid tested. He will be admitted to [facility] as a patient under investigation. He has been hypotensive and will receive aggressive IV fluids. He will receive thiamine and folic acid and be on the CIWA protocol with scheduled and as needed benzodiazepines. In addition his serum alcohol was 104 and his drug screen was positive for opiates and benzodiazepines. Dilaudid will be available to avoid narcotic withdrawal in addition to his alcohol withdrawal. Since he meets sepsis criteria he will also undergo the sepsis protocol. He will be on vancomycin and Zosyn for sepsis as well as azithromycin for possible COVID. The azithromycin will be discontinued if he returns as COVID negative. In addition he will be on 1 mg/kg of Lovenox twice daily and this will be discontinued if he is COVID negative. Past Medical History Cardiac Medical History: Reports: Hyperlipidema, Hypertension Denies: Atrial Fibrillation, Congestive Heart Failure, Coronary Artery Disease, DVT, Myocardial Infarction, Peripheral Vascular Disease, Pulmonary Emb olism Pulmonary Medical History: Reports: Bronchitis Denies: Asthma, Chronic Obstructive Pulmonary Disease (COPD) Neurological Medical History: Denies: Migraine, Seizures Endocrine Medical History: Denies: Diabetes Mellitus Type 1, Diabetes Mellitus Type 2, Hyperthyroidism, Hypothyroidism GI Medical History: Reports: Cirrhosis, Hepatitis - Hepatitis-C Denies: Crohn's Disease, Gastroesophageal Reflux Disease, Ulcerative Colitis Musculoskeltal Medical History: Reports: Arthritis, Gout Skin Medical History: Denies: Eczema, Psoriasis Psychiatric Medical History: Reports: Bipolar Disorder, Depression, Post Traumatic Stress Disorder Hematology: Denies: Anemia, Bleeding Tendencies Infectious Medical History: Reports: Hepatitis C Past Surgical History Past Surgical History: Reports: Orthopedic Surgery - R hand Social History Lives with: Alone Smoking Status: Current Every Day Smoker Electronic Cigarette use?: No Frequency of Alcohol Use: Heavy - 1/2 gallon of whiskey daily Hx Recreational Drug Use: Yes Drugs: Cocaine, Heroin, Marijuana Hx Prescription Drug Abuse: Yes - Opioids and benzodiazepines - Advance Directive Resuscitation Status: Full Code Surrogate healthcare decision maker:: The patient's mother is listed as the next of kin/person to contact Family History Family History: CAD, CVA, Hyperlipidemia, Hypertension, Malignancy, Thyroid Disfunction Parental Family History Reviewed: Yes Children Family History Reviewed: Yes Sibling(s) Family History Reviewed.: Yes Medication/Allergy Home Medications: Sucralfate [Carafate 1 gm Tablet] 1 gm PO QID #20 tablet 10/15/19 Dicyclomine HCl [Bentyl 20 mg Tablet] 20 mg PO QID 12/20/19 Naproxen [Naprosyn 250 mg Tablet] 250 mg PO BID 12/20/19 Allergies/Adverse Reactions: carisoprodol [From Soma] Allergy (Verified 09/29/19 14:26) Sulfa (Sulfonamide Antibiotics) Allergy (Verified 09/29/19 14:26) Review of Systems All systems: reviewed and no additional remarkable complaints except as stated Constitutional: PRESENT: anorexia, chills, weakness Gastrointestinal: PRESENT: abdominal pain, diarrhea, nausea Physical Exam Vital Signs: Temp Pulse Resp BP Pulse Ox 98.3 F 103 H 21 H 98/63 L 96 12/20/19 08:00 12/20/19 08:00 12/20/19 08:01 12/20/19 08:00 12/20/19 08:01 Intake & Output 12/19/19 12/20/19 12/21/19 06:59 06:59 06:59 Intake Total 2900 Balance 2900 Weight 78.1 kg General appearance: PRESENT: disheveled, well-developed, other - Moderate to severe distress. ABSENT: cooperative Head exam: PRESENT: atraumatic, normocephalic Eye exam: PRESENT: conjunctival injection, conjunctiva pink, scleral icterus Ear exam: PRESENT: normal external ear exam. ABSENT: bleeding, drainage Mouth exam: PRESENT: moist, tongue midline Neck exam: ABSENT: carotid bruit, JVD, lymphadenopathy Respiratory exam: PRESENT: clear to auscultation jason, symmetrical, unlabored. ABSENT: accessory muscle use, rales, rhonchi, tachypnea, wheezes Cardiovascular exam: PRESENT: RRR, +S1, +S2. ABSENT: diastolic murmur, irregular rhythm, systolic murmur GI/Abdominal exam: PRESENT: diminished bowel sounds, soft, tenderness - Diffuse upper abdominal tenderness nonfocal. ABSENT: distended, guarding Rectal exam: PRESENT: deferred Gentrourinary exam: ABSENT: indwelling catheter Extremities exam: ABSENT: clubbing, joint swelling, pedal edema Musculoskeletal exam: PRESENT: normal inspection. ABSENT: deformity, dislocation Neurological exam: PRESENT: awake, oriented to person, oriented to place, oriented to situation, CN II-XII grossly intact. ABSENT: alert, altered Psychiatric exam: PRESENT: flat affect. ABSENT: agitated, anxious Focused psych exam: ABSENT: delusional, paranoid, restlessness Skin exam: PRESENT: dry, warm. ABSENT: jaundice, rash Results Laboratory Results: 12/19/19 22:47 12/19/19 22:47 12/19/19 12/19/19 12/20/19 22:47 22:47 00:25 WBC 3.8 L RBC 3.99 L Hgb 11.6 L Hct 34.3 L MCV 86 MCH 29.0 MCHC 33.7 RDW 15.1 H Plt Count 100 L Seg Neutrophils % 87.8 H Carbonic Acid HCO3/H2CO3 Ratio ABG pH ABG pCO2 ABG pO2 ABG HCO3 ABG O2 Saturation ABG Base Excess FiO2 Sodium 132.2 L Potassium 3.8 Chloride 98 Carbon Dioxide 21 L Anion Gap 13 BUN 7 Creatinine 0.67 Est GFR ( Amer) > 60 Glucose 97 Lactic Acid 2.2 H Calcium 9.2 Total Bilirubin 1.6 H AST 48 Alkaline Phosphatase 401 H Total Protein 8.6 H Albumin 4.1 Lipase 36.1 Urine Color Urine Appearance Urine pH Ur Specific [place] Urine Protein Urine Glucose (UA) Urine Ketones Urine Blood Urine Nitrite Ur Leukocyte Esterase Urine RBC (Auto) 12/20/19 12/20/19 12/20/19 01:25 02:26 04:26 WBC RBC Hgb Hct MCV MCH MCHC RDW Plt Count Seg Neutrophils % Carbonic Acid 0.82 L HCO3/H2CO3 Ratio 21:1 ABG pH 7.44 ABG pCO2 27.4 L ABG pO2 57.2 L ABG HCO3 18.0 L ABG O2 Saturation 91.2 L ABG Base Excess -5.2 FiO2 ROOM AIR Sodium Potassium Chloride Carbon Dioxide Anion Gap BUN Creatinine Est GFR ( Amer) Glucose Lactic Acid 1.3 Calcium Total Bilirubin AST Alkaline Phosphatase Total Protein Albumin Lipase Urine Color YELLOW Urine Appearance TURBID Urine pH 5.0 Ur Specific [place] 1.021 Urine Protein NEGATIVE Urine Glucose (UA) NEGATIVE Urine Ketones NEGATIVE Urine Blood SMALL H Urine Nitrite NEGATIVE Ur Leukocyte Esterase NEGATIVE Urine RBC (Auto) 8 12/19/19 22:47 CK-MB (CK-2) 1.18 Troponin I < 0.012 Impressions: Chest X-Ray 12/19/19 22:56 IMPRESSION: No acute cardiopulmonary process copyright 2011 [employer]- All Rights Reserved Abdomen/Pelvis CT 12/19/19 22:57 IMPRESSION: No definite acute findings. No significant change. Assessment and Plan - Diagnosis (1) Sepsis Qualifiers: Sepsis type: sepsis due to unspecified organism Sepsis acute organ dysfunction status: unspecified Qualified Code(s): A41.9 - Sepsis, unspecified organism Is this a current diagnosis for this admission?: Yes Plan: 12/20/2019 The patient meets criteria for sepsis with elevated bilirubin, thrombocytopenia and map less than 70. He also had a positive lactic acid level initially. With IV fluids the second serum lactic acid was normal. He is also being tested for COVID 19. He is on vancomycin and Zosyn for possible urosepsis and azithromycin. If his cover test comes back negative I will discontinue the azithromycin. (2) Urinary tract infection Qualifiers: Urinary tract infection type: site unspecified Hematuria presence: without hematuria Qualified Code(s): N39.0 - Urinary tract infection, site not specified Is this a current diagnosis for this admission?: Yes Plan: 12/20/2019 Despite leukocyte esterase and nitrite negative dipstick the patient has many white blood cell clumps on urinalysis. He is on vancomycin and Zosyn speci fically for sepsis. Await urine culture results. (3) Pancytopenia Is this a current diagnosis for this admission?: Yes Plan: 12/20/2019 Hemoglobin 11.6, platelets 100 and white blood cell count 3.8. Pancytopenia is likely from infection. Sepsis is most likely the cause however this could represent a viral infection. We will continue to monitor closely. (4) Elevated d-dimer Is this a current diagnosis for this admission?: Yes Plan: 12/20/2019 Possible inflammatory marker seen with COVID infection. We will fully anticoagulate with Lovenox. If COVID negative will discontinue full-strength Lovenox and drop to DVT prophylaxis dosing. (5) Suspected COVID-19 virus infection Is this a current diagnosis for this admission?: Yes Plan: 12/20/2019 Patient has multiple risk factors. COVID test is pending. Currently on vitamin C, melatonin, zinc, a azithromycin and Lovenox. (6) Alcohol abuse Is this a current diagnosis for this admission?: Yes Plan: 12/20/2019 Alcohol level on admission was 108. He certainly has presented with higher alcohol levels. He also has underlying hepatitis C. He drinks 1/2 gallon of whiskey daily. Supportive care including thiamine and folic acid. IV fluids. Check lipase levels. Place on CIWA protocol as well. (7) Alcohol withdrawal Qualifiers: Complication of substance-induced condition: uncomplicated Qualified Code(s): F10.230 - Alcohol dependence with withdrawal, uncomplicated Is this a current diagnosis for this admission?: Yes Plan: 12/20/2019 As with previous admissions the patient has a high risk for alcohol withdrawal. Scheduled and as needed benzodiazepines available. The patient will be on the CIWA protocol. (8) Abdominal pain Qualifiers: Abdominal location: generalized Qualified Code(s): R10.84 - Generalized abdominal pain Is this a current diagnosis for this admission?: Yes Plan: 12/20/2019 Chronic abdominal pain. Likely related to chronic liver disease from hepatitis C and steatohepatitis secondary to alcohol. Lipase is normal. This could be due to a burned-out pancreas problem alcohol abuse (9) Cholecystitis Is this a current diagnosis for this admission?: Yes Plan: 12/20/2019 The abdominal imaging suggested thickened gallbladder wall and some pericholecystic fluid. The patient is already on broad-spectrum antibiotics for sepsis. Total bilirubin and alkaline phosphatase are elevated. It is possible that he may have a degree of cholecystitis contributing to his overall septic picture. Continue Zosyn and vancomycin (10) Hepatitis C Qualifiers: Viral hepatitis chronicity: chronic Hepatic coma status: without hepatic coma Qualified Code(s): B18.2 - Chronic viral hepatitis C Is this a current diagnosis for this admission?: Yes Plan: 12/20/2019 Supportive care at this point. 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 Triglyceride levels are in fact normal. (12) Hyperlipidemia Qualifiers: Hyperlipidemia type: unspecified Qualified Code(s): E78.5 - Hyperlipidemia, unspecified Is this a current diagnosis for this admission?: Yes Plan: 12/20/2019 History of hypertriglyceridemia. Triglyceride levels currently normal. (13) Lactic acidosis Is this a current diagnosis for this admission?: Yes Plan: 12/20/2019 Mildly elevated initially but back to normal with IV fluids. - Time Time Spent with patient: 35 or more minutes Smoking Cessation Education: 3 to 10 minutes Medications reviewed and adjusted accordingly: Yes - Inpatient Certification Based on my medical assessment, after consideration of the patient's comorbidities, presenting symptoms, or acuity I expect that the services needed warrant INPATIENT care.: Yes I certify that my determination is in accordance with my understanding of Medicare's requirements for reasonable and necessary INPATIENT services [42 CFR 412.3e].: Yes Medical Necessity: Need Close Monitoring Due to Risk of Patient Decompensation, Need For IV Fluids, Need for Pain Control, Need for IV Antibiotics, Risk of Complication if Not Cared For in Hospital Post Hospital Care: D/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
[2019-12-20] MEDS: HYDROMORPHONE HCL INJ/PF 2 MG/ML AMPULE IV PRN ×2 (11:21→19:37)
[2019-12-20] MEDS: PROMETHAZINE HCL INJ 25 MG/1 ML VIAL IV PRN ×2 (11:21→19:40)
[2019-12-20] MEDS: ENOXAPARIN SODIUM INJ 80 MG/0.8 ML DISP.SYRIN SUBCUT SCH ×2 (13:32→22:46)
[2019-12-20] MEDS: SUCRALFATE 1 GM TABLET PO SCH ×2 (13:36→15:42)
[2019-12-20] MEDS: FAMOTIDINE 20 MG TABLET PO SCH ×2 (13:36→22:41)
[2019-12-20] MEDS: ASCORBIC ACID 500 MG TABLET PO SCH ×2 (13:37→17:36)
[2019-12-20] MEDS: ZINC SULFATE 220 MG CAPSULE PO SCH (13:37)
[2019-12-20] MEDS: PIPERACILLIN SODIUM/TAZOBACTAM 4.5 GM in NORMAL SALINE 100 ML IV SCH ×2 (14:38→17:38)
[2019-12-20] MEDS: VANCOMYCIN HCL 1,000 MG in DEXTROSE 5%-WATER 250 ML IV SCH ×2 (15:00→22:54)
[2019-12-20] MEDS: THIAMINE HCL 100 MG, FOLIC ACID 1 MG in NORMAL SALINE 250 ML IV SCH (15:41)
[2019-12-20] MEDS: DIAZEPAM 5 MG TABLET PO SCH ×2 (15:42→22:42)
[2019-12-20] MEDS: MAGNESIUM SULFATE/D5W 1 GM/100 ML RTUPB IV SCH ×3 (19:35→22:41)
[2019-12-20] MEDS: LORAZEPAM INJ 2 MG/1 ML VIAL IV PRN (21:18)
[2019-12-20] MEDS: MELATONIN 5 MG TABLET PO SCH (22:42)
[2019-12-20] MEDS: DICYCLOMINE HCL 20 MG TABLET PO SCH (22:42)
[2019-12-21] MEDS: PROMETHAZINE HCL INJ 25 MG/1 ML VIAL IV PRN ×2 (00:45→06:13)
[2019-12-21] MEDS: HYDROMORPHONE HCL INJ/PF 2 MG/ML AMPULE IV PRN ×5 (00:45→21:46)
[2019-12-21] MEDS: PIPERACILLIN SODIUM/TAZOBACTAM 4.5 GM in NORMAL SALINE 100 ML IV SCH ×4 (01:00→17:35)
[2019-12-21 05:25] LABS: HEMATOCRIT 31.6 % (37.9-51.0); HEMOGLOBIN 10.7 g/dL (13.5-17.0); MEAN CORPUSCULAR HEMOGLOBIN 29.1 pg (27.0-33.4); MEAN CORPUSCULAR HGB CONC 33.7 g/dL (32.0-36.0); MEAN CORPUSCULAR VOLUME 86 fl (80-97); RED BLOOD COUNT 3.66 10^6/uL (4.35-5.55); RED CELL DISTRIBUTION WIDTH 15.2 % (11.5-14.0)
[2019-12-21 05:31] LABS: ALBUMIN 3.1 g/dL (3.5-5.0); ALKALINE PHOSPHATASE 328 U/L (38-126); ASPARTATE AMINO TRANSFERASE 53 U/L (17-59); BILIRUBIN,DIRECT 1.3 mg/dL (0.0-0.4); BLOOD UREA NITROGEN 13 mg/dL (7-20); CALCIUM 7.9 mg/dL (8.4-10.2); GLUCOSE 91 mg/dL (75-110); POTASSIUM 3.2 mmol/L (3.6-5.0); TOTAL PROTEIN 7.3 g/dL (6.3-8.2)
[2019-12-21 05:33] LABS: INTERNATIONAL RATION (INR) 1.29; PROTHROMBIN TIME 16.2 SEC (11.4-15.4)
[2019-12-21 05:37] LABS: ANION GAP 6 (5-19); CARBON DIOXIDE 22 mmol/L (22-30); CHLORIDE 107 mmol/L (98-107)
[2019-12-21] MEDS: VANCOMYCIN HCL 1,000 MG in DEXTROSE 5%-WATER 250 ML IV SCH ×3 (05:48→22:03)
[2019-12-21] MEDS: DIAZEPAM 5 MG TABLET PO SCH ×3 (05:48→21:45)
[2019-12-21 06:20] LABS: WHITE BLOOD COUNT 1.6 10^3/uL (4.0-10.5)
[2019-12-21 06:21] LABS: PLATELET COUNT 64 10^3/uL (150-450)
[2019-12-21] MEDS: SUCRALFATE 1 GM TABLET PO SCH ×3 (08:36→17:35)
[2019-12-21] MEDS: THIAMINE HCL 100 MG, FOLIC ACID 1 MG in NORMAL SALINE 250 ML IV SCH (09:37)
[2019-12-21] MEDS: FAMOTIDINE 20 MG TABLET PO SCH ×2 (09:38→21:46)
[2019-12-21] MEDS: ASCORBIC ACID 500 MG TABLET PO SCH ×2 (09:38→17:35)
[2019-12-21] MEDS: AZITHROMYCIN 250 MG TABLET PO SCH (09:38)
[2019-12-21] MEDS: DICYCLOMINE HCL 20 MG TABLET PO SCH ×4 (09:38→21:46)
[2019-12-21] MEDS: LORAZEPAM INJ 2 MG/1 ML VIAL IV PRN ×3 (09:38→23:39)
[2019-12-21] MEDS: ZINC SULFATE 220 MG CAPSULE PO SCH (09:38)
[2019-12-21] MEDS: ENOXAPARIN SODIUM INJ 80 MG/0.8 ML DISP.SYRIN SUBCUT SCH ×2 (09:39→21:17)
[2019-12-21] MEDS: DEXAMETHASONE 4 MG TABLET PO SCH ×2 (13:42→21:46)
[2019-12-21 13:59] LABS: PATH REVIEW PATHOLOGIST REVIEWED
[2019-12-21 14:15] LABS: APPEARANCE,URINE CLEAR; BILIRUBIN,URINE NEGATIVE (NEGATIVE); COLOR,URINE YELLOW; GLUCOSE, URINE NEGATIVE (NEGATIVE); KETONES,URINE NEGATIVE (NEGATIVE); LEUKOCYTE ESTERASE,URINE NEGATIVE (NEGATIVE); NITRITE,URINE NEGATIVE (NEGATIVE); PROTEIN,URINE NEGATIVE (NEGATIVE); URINE SPECIFIC GRAVITY 1.009; UROBILINOGEN,URINE NEGATIVE mg/dL (<2.0)
--- NOTE | 2019-12-21 17:36 | PDOC PROGRESS REPORT ---
Subjective Progress Note for:: 12/21/19 Subjective:: resting comfortably. Clinically looks better than yesterday despite drop in WBC. He does report some nausea. Reason For Visit: SEPSIS,ALCOHOL INTOXICATION,CHRONIC ABDOMINAL PAIN Physical Exam Vital Signs: Temp Pulse Resp BP Pulse Ox 98.4 F 84 15 107/66 94 12/21/19 14:51 12/21/19 14:51 12/21/19 14:51 12/21/19 14:51 12/21/19 12:51 Intake & Output 12/20/19 12/21/19 12/22/19 06:59 06:59 06:59 Intake Total 2900 1927.2 971.2 Output Total 1600 Balance 2900 327.2 971.2 Weight 78.1 kg 82.1 kg General appearance: PRESENT: no acute distress, cooperative, well-developed Head exam: PRESENT: atraumatic, normocephalic Respiratory exam: PRESENT: clear to auscultation jason, tachypnea, unlabored. ABSENT: rales, rhonchi, symmetrical, wheezes Cardiovascular exam: PRESENT: RRR, +S1, +S2, systolic murmur GI/Abdominal exam: PRESENT: normal bowel sounds, soft. ABSENT: distended, guarding, tenderness Rectal exam: PRESENT: deferred Gentrourinary exam: ABSENT: indwelling catheter Extremities exam: ABSENT: pedal edema Musculoskeletal exam: PRESENT: ambulatory, normal inspection Neurological exam: PRESENT: alert, awake, oriented to person, oriented to place, oriented to situation. ABSENT: altered Psychiatric exam: PRESENT: flat affect. ABSENT: agitated, anxious Focused psych exam: ABSENT: delusional, paranoid, restlessness Skin exam: PRESENT: dry, warm, other - Multiple tattoos and piercings. ABSENT: rash Results Laboratory Results: 12/21/19 04:22 12/21/19 14:14 12/21/19 12/21/19 12/21/19 04:22 04:22 13:55 WBC 1.6 L D RBC 3.66 L Hgb 10.7 L Hct 31.6 L MCV 86 MCH 29.1 MCHC 33.7 RDW 15.2 H Plt Count 64 L Sodium 135.1 L Potassium 3.2 L Chloride 107 Carbon Dioxide 22 Anion Gap 6 BUN 13 Creatinine 0.78 Est GFR ( Amer) > 60 Glucose 91 Calcium 7.9 L Magnesium 1.8 D Total Bilirubin 2.0 H AST 53 Alkaline Phosphatase 328 H Total Protein 7.3 Albumin 3.1 L Urine Color YELLOW Urine Appearance CLEAR Urine pH 7.0 Ur Specific [place] 1.009 Urine Protein NEGATIVE Urine Glucose (UA) NEGATIVE Urine Ketones NEGATIVE Urine Blood NEGATIVE Urine Nitrite NEGATIVE Ur Leukocyte Esterase NEGATIVE Urine RBC (Auto) 0 12/21/19 14:14 WBC RBC Hgb Hct MCV MCH MCHC RDW Plt Count Sodium Potassium Chloride Carbon Dioxide Anion Gap BUN Creatinine 0.75 Est GFR ( Amer) > 60 Glucose Calcium Magnesium Total Bilirubin AST Alkaline Phosphatase Total Protein Albumin Urine Color Urine Appearance Urine pH Ur Specific [place] Urine Protein Urine Glucose (UA) Urine Ketones Urine Blood Urine Nitrite Ur Leukocyte Esterase Urine RBC (Auto) 12/19/19 22:47 Blood Blood Culture (PCR) - Final Desirae Albicans 12/19/19 22:47 CK-MB (CK-2) 1.18 Troponin I < 0.012 Impressions: Chest X-Ray 12/19/19 22:56 IMPRESSION: No acute cardiopulmonary process copyright 2011 [employer]- All Rights Reserved Abdomen/Pelvis CT 12/19/19 22:57 IMPRESSION: No definite acute findings. No significant change. Assessment and Plan - Diagnosis (1) Sepsis Qualifiers: Sepsis type: sepsis due to unspecified organism Sepsis acute organ dysfunction status: unspecified Qualified Code(s): A41.9 - Sepsis, unspecified organism Is this a current diagnosis for this admission?: Yes Plan: Resolved foot IV fluids and antibiotics There is a strep and yeast in one blood culture. This may likely be a contaminant. Will observe for 24 more hours and if there is suspicion of true infection I will add an antifungal medication. (2) Urinary tract infection Qualifiers: Urinary tract infection type: site unspecified Hematuria presence: without hematuria Qualified Code(s): N39.0 - Urinary tract infection, site not specified Is this a current diagnosis for this admission?: Yes Plan: Preliminary no growth (3) Pancytopenia Is this a current diagnosis for this admission?: Yes Plan: Much worse today. White blood cell count is down to 1.6 and platelet count has dropped as well. This could be a reflection of a viral illness. COVID is still pending. Monitor closely and continue antibiotics. (4) Elevated d-dimer Is this a current diagnosis for this admission?: Yes Plan: Continue full-strength anticoagulation. If COVID negative will discontinue and utilize DVT prophylaxis. (5) Suspected COVID-19 virus infection Is this a current diagnosis for this admission?: Yes Plan: Pending (6) Alcohol abuse Is this a current diagnosis for this admission?: Yes Plan: Continue to treat for withdrawal. (7) Alcohol withdrawal Qualifiers: Complication of substance-induced condition: uncomplicated Qualified Code(s): F10.230 - Alcohol dependence with withdrawal, uncomplicated Is this a current diagnosis for this admission?: Yes Plan: Current schedule of benzodiazepine therapy seems to be effective. (8) Abdominal pain Qualifiers: Abdominal location: generalized Qualified Code(s): R10.84 - Generalized abdominal pain Is this a current diagnosis for this admission?: Yes Plan: Chronic. Stable. (9) Cholecystitis Is this a current diagnosis for this admission?: Yes Plan: As noted before the abdominal ultrasound did allow for a possibility of cholecystitis. We will continue antibiotics. I do not think an acute cholecystitis is present. 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 Conservative therapy. (12) Hyperlipidemia Qualifiers: Hyperlipidemia type: unspecified Qualified Code(s): E78.5 - Hyperlipidemia, unspecified Is this a current diagnosis for this admission?: Yes Plan: 12/20/2019 History of hypertriglyceridemia. Triglyceride levels currently normal. (13) Lactic acidosis Is this a current diagnosis for this admission?: Yes Plan: 12/20/2019 Mildly elevated initially but back to normal with IV fluids. - Time Time Spent with patient: 25-34 minutes Medications reviewed and adjusted accordingly: Yes Anticipated discharge: Home
[2019-12-21] MEDS: MELATONIN 5 MG TABLET PO SCH (21:46)
[2019-12-21 22:35] LABS: VANCOMYCIN,TROUGH 15.5 ug/mL (5.0-20.0)
[2019-12-22 00:10] LABS: APPEARANCE,URINE CLEAR; BILIRUBIN,URINE NEGATIVE (NEGATIVE); COLOR,URINE YELLOW; GLUCOSE, URINE NEGATIVE (NEGATIVE); KETONES,URINE NEGATIVE (NEGATIVE); LEUKOCYTE ESTERASE,URINE NEGATIVE (NEGATIVE); NITRITE,URINE NEGATIVE (NEGATIVE); PROTEIN,URINE NEGATIVE (NEGATIVE); URINE SPECIFIC GRAVITY 1.004; UROBILINOGEN,URINE NEGATIVE mg/dL (<2.0)
[2019-12-22] MEDS: PIPERACILLIN SODIUM/TAZOBACTAM 4.5 GM in NORMAL SALINE 100 ML IV SCH ×2 (00:54→05:43)
[2019-12-22] MEDS: HYDROMORPHONE HCL INJ/PF 2 MG/ML AMPULE IV PRN ×2 (02:52→08:10)
[2019-12-22] MEDS: LORAZEPAM INJ 2 MG/1 ML VIAL IV PRN ×2 (02:53→08:10)
[2019-12-22 05:30] LABS: HEMATOCRIT 31.9 % (37.9-51.0); HEMOGLOBIN 10.6 g/dL (13.5-17.0); MEAN CORPUSCULAR HEMOGLOBIN 28.9 pg (27.0-33.4); MEAN CORPUSCULAR HGB CONC 33.2 g/dL (32.0-36.0); MEAN CORPUSCULAR VOLUME 87 fl (80-97); RED BLOOD COUNT 3.66 10^6/uL (4.35-5.55); RED CELL DISTRIBUTION WIDTH 15.9 % (11.5-14.0); WHITE BLOOD COUNT 1.9 10^3/uL (4.0-10.5)
[2019-12-22 05:37] LABS: ALBUMIN 3.6 g/dL (3.5-5.0); ALKALINE PHOSPHATASE 415 U/L (38-126); ANION GAP 9 (5-19); ASPARTATE AMINO TRANSFERASE 49 U/L (17-59); BILIRUBIN,DIRECT 0.8 mg/dL (0.0-0.4); BILIRUBIN,TOTAL 1.4 mg/dL (0.2-1.3); BLOOD UREA NITROGEN 12 mg/dL (7-20); CALCIUM 8.8 mg/dL (8.4-10.2); CARBON DIOXIDE 22 mmol/L (22-30); CHLORIDE 108 mmol/L (98-107); GLUCOSE 127 mg/dL (75-110); POTASSIUM 3.8 mmol/L (3.6-5.0)
[2019-12-22] MEDS: DEXAMETHASONE 4 MG TABLET PO SCH (05:42)
[2019-12-22] MEDS: DIAZEPAM 5 MG TABLET PO SCH (05:43)
[2019-12-22 06:05] LABS: ABSOLUTE LYMPHOCYTES# (MANUAL) 0.4 10^3/uL (0.5-4.7); ABSOLUTE MONOCYTES # (MANUAL) 0.1 10^3/uL (0.1-1.4); BASOPHILS % (MANUAL) 2 % (0-2); EOSINOPHILS % (MANUAL) 0 % (0-6); LYMPHOCYTES % (MANUAL) 20 % (13-45); MONOCYTES % (MANUAL) 6 % (3-13); SEGMENTED NEUTROPHILS % (MAN) 72 % (42-78); TOTAL CELLS COUNTED 50
[2019-12-22 06:06] LABS: ANISOCYTOSIS SLIGHT; HYPOCHROMASIA SLIGHT; PLATELET COMMENT DECREASED; PLATELET COUNT 82 10^3/uL (150-450); TOXIC VACUOLATION PRESENT
[2019-12-22] MEDS: VANCOMYCIN HCL 1,000 MG in DEXTROSE 5%-WATER 250 ML IV SCH (06:26)
[2019-12-22] MEDS: SUCRALFATE 1 GM TABLET PO SCH (08:10)
[2019-12-22 09:00] VITALS: BP 149/82
[2019-12-22] MEDS: FAMOTIDINE 20 MG TABLET PO SCH (09:41)
[2019-12-22] MEDS: ASCORBIC ACID 500 MG TABLET PO SCH (09:41)
[2019-12-22] MEDS: AZITHROMYCIN 250 MG TABLET PO SCH (09:41)
[2019-12-22] MEDS: DICYCLOMINE HCL 20 MG TABLET PO SCH (09:41)
--- NOTE | 2019-12-22 13:50 | Left Against Medical Advice ---
Against Medical Advice Admission Date/Time: 12/20/19 07:52 Primary Care Provider: [facility] Date of Patient Emigration: 12/22/19 - Diagnosis: (1) Sepsis Is this a current diagnosis for this admission?: Yes (2) Urinary tract infection Is this a current diagnosis for this admission?: Yes (3) Pancytopenia Is this a current diagnosis for this admission?: Yes (4) Elevated d-dimer Is this a current diagnosis for this admission?: Yes (5) Suspected COVID-19 virus infection Is this a current diagnosis for this admission?: Yes (6) Alcohol abuse Is this a current diagnosis for this admission?: Yes (7) Alcohol withdrawal Is this a current diagnosis for this admission?: Yes (8) Abdominal pain Is this a current diagnosis for this admission?: Yes (9) Cholecystitis Is this a current diagnosis for this admission?: Yes (10) Hepatitis C Is this a current diagnosis for this admission?: Yes (11) 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 RAMBO MARTINEZ is a 34 M, who LEFT AGAINST MEDICAL ADVICE. The Patient was admitted on 12/20/19 07:52. Mr. Martinez is a 34-year-old alcoholic who unfortunately leaves AMA most of the time that he is admitted to the hospital. This time he was septic. He displayed pancytopenia which was worrisome. Possible sites of infection including gallbladder and bacteremia. He has exhibited this pattern before and regardless of explanations of the risk and his illness he leaves anyway. Based on his laboratory studies it is likely he will return within a week.
== END 2019-12-22 09:55 | disposition left against medical advice (07) | DRG 872 ==
LOC: ER 22:48 → EH 12-20 07:52 → 3N 12-20 09:20 → 3W 12-21 21:00
PROVIDERS: ADMIT Hospitalist; ATTEND Hospitalist
PROC: HZ2ZZZZ Detoxification Services for Substance Abuse Treatment (ICD-10-PCS; principal; 2019-12-20)
DX: A41.9 Sepsis, unspecified organism (principal); N39.0 Urinary tract infection, site not specified; D61.818 Other pancytopenia; F10.239 Alcohol dependence with withdrawal, unspecified; E87.2 Acidosis; B18.2 Chronic viral hepatitis C; R65.20 Severe sepsis without septic shock; R79.1 Abnormal coagulation profile; F10.229 Alcohol dependence with intoxication, unspecified; K81.9 Cholecystitis, unspecified; E78.5 Hyperlipidemia, unspecified; K70.10 Alcoholic hepatitis without ascites; Y90.5 Blood alcohol level of 100-119 mg/100 ml; I10 Essential (primary) hypertension; M10.9 Gout, unspecified; F31.9 Bipolar disorder, unspecified; F43.10 Post-traumatic stress disorder, unspecified; F17.210 Nicotine dependence, cigarettes, uncomplicated; E78.00 Pure hypercholesterolemia, unspecified; F41.9 Anxiety disorder, unspecified; K21.9 Gastro-esophageal reflux disease without esophagitis; Z03.818 Encounter for observation for suspected exposure to other biological agents ruled out; Z60.2 Problems related to living alone; Z86.73 Personal history of transient ischemic attack (TIA), and cerebral infarction without residual deficits; Z91.19 Patient's noncompliance with other medical treatment and regimen; Z88.2 Allergy status to sulfonamides; Z88.8 Allergy status to other drugs, medicaments and biological substances; Z82.49 Family history of ischemic heart disease and other diseases of the circulatory system; Z82.3 Family history of stroke; Z80.9 Family history of malignant neoplasm, unspecified
CPT/HCPCS: 36415; 71045; 74177; 76705; 80053; 80202; 80307; 81001; 82553; 82565; 82728; 82803; 83605; 83615; 83690; 83735; 84478; 84484; 85025; 85027; 85379; 85610; 87040; 87077; 87086; 87150; 87186; 87635; 93005; 93010; 96361; 96374; 96375; 96376; 99285; C9803; J1170; J1885; J2060; J2270; J2405; J2543; J2550; J3370; J3411; J3475; J3490; J7030; J7050; J7060; J8540

== ENCOUNTER 2020-04-07 08:32 | Observation (INO) | payer OTHER ==
[2020-04-07] MEDS ORDERED: LORAZEPAM INJ 2 MG/1 ML VIAL IV ONE ×2 (09:56→14:19)
--- NOTE | 2020-04-07 10:19 | ER Document Report ---
ED Cardiac - General Chief Complaint: Chest Pain Stated Complaint: CHEST PAIN/SOB/HAND & FEET ON FIRE Time Seen by Provider: 04/07/20 09:41 Primary [facility] Provider: [facility] [Primary Care Provider] - Follow up as needed Notes: Patient is a 34-year-old male with a history of IV drug use who presents to the emergency department with a chief complaint of chest pain. Patient states that about a week ago he ended up overdosing on heroin. His mom attempted to perform CPR on him. Since then he has had chest pain and shortness of breath. Patient also has history of liver cirrhosis. He states that he continues to drink whiskey. States last time he used heroin was 4 days ago. Denies any hypertension or diabetes. TRAVEL OUTSIDE OF THE [place] IN LAST 30 DAYS: No - Related Data Allergies/Adverse Reactions: carisoprodol [From Soma] Allergy (Verified 09/29/19 14:26) Sulfa (Sulfonamide Antibiotics) Allergy (Verified 09/29/19 14:26) Past Medical History - Social History Smoking Status: Current Every Day Smoker Frequency of alcohol use: Heavy Drug Abuse: Heroin Family History: CAD, CVA, Hyperlipidemia, Hypertension, Malignancy, Thyroid Disfunction Patient has homicidal ideation: No - Past Medical History Cardiac Medical History: Reports: Hx Hypercholesterolemia, Hx Hypertension Denies: Hx Atrial Fibrillation, Hx Congestive Heart Failure, Hx Coronary Artery Disease, Hx DVT, Hx Heart Attack, Hx Peripheral Vascular Disease, Hx Pulmonary Embolism Pulmonary Medical History: Reports: Hx Bronchitis Denies: Hx Asthma, Hx COPD Neurological Medical History: Reports: Hx Cerebrovascular Accident - States he has had a TIA. Denies: Hx Migraine, Hx Seizures Endocrine Medical History: Denies: Hx Diabetes Mellitus Type 1, Hx Diabetes Mellitus Type 2, Hx Hyperthyroidism, Hx Hypothyroidism Renal/ Medical History: Denies: Hx Peritoneal Dialysis GI Medical History: Reports: Hx Cirrhosis, Hx Gastritis, Hx Hepatitis - Hepatitis-C, Hx Ulcer, Hx Endoscopy. Denies: Hx Crohn's Disease, Hx Gastroesoph ageal Reflux Disease, Hx Ulcerative Colitis Musculoskeletal Medical History: Reports Hx Arthritis, Reports Hx Gout, Reports Hx Musculoskeletal Deformity, Reports Hx Musculoskeletal Trauma Skin Medical History: Denies Hx Eczema, Denies Hx Psoriasis Psychiatric Medical History: Reports: Hx Anxiety, Hx Bipolar Disorder, Hx Dep ression, Hx Post Traumatic Stress Disorder Traumatic Medical History: Reports: Hx Fractures - Right hand Infectious Medical History: Reports: Hx Hepatitis - Hepatitis-C Past Surgical History: Reports: Hx Orthopedic Surgery - R hand - Immunizations Immunizations up to date: Yes Hx Diphtheria, Pertussis, Tetanus Vaccination: Yes Review of Systems - Review of Systems Notes: REVIEW OF SYSTEMS: CONSTITUTIONAL : Denies recent illness. Denies recent unintentional weight loss. Denies fever, chills, or sweats. EENT: See HPI. CARDIOVASCULAR: See HPI. RESPIRATORY: See HPI. GASTROINTESTINAL: Denies nausea, vomiting, and diarrhea. Denies abdominal pain. Denies constipation. GENITOURINARY: Denies difficulty urinating, burning, blood in urine, urgency or frequency. MUSCULOSKELETAL: Denies neck and back pain. Denies joint pain or swelling. SKIN: Denies rash, itchiness, or lesions HEMATOLOGIC : Denies easy bruising or bleeding. LYMPHATIC: Denies swollen, painful, enlarged glands. NEUROLOGICAL: Denies no numbness or tingling denies weakness. Denies headache. Denies altered mental status. Denies alteration in speech. PSYCHIATRIC: Denies stress, anxiety, alteration in sleep patterns, or depression. All other systems reviewed and negative. Physical Exam - Vital signs Vitals: Temp Pulse Resp BP Pulse Ox 98.1 F 114 H 16 111/78 96 04/07/20 08:38 04/07/20 08:38 04/07/20 08:38 04/07/20 08:38 04/07/20 08:38 - Notes Notes: PHYSICAL EXAMINATION: GENERAL: Appears ill. HEAD: Normocephalic, atraumatic. EYES: PERRL, conjunctiva normal, all extraocular movements intact, sclera nonicteric ENT: Moist mucous membranes. NECK: Supple, no noticeable swelling, redness, rash. Normal range of motion. LUNGS: Equal breath sounds bilaterally and clear to auscultation. No wheezes rales or rhonchi. CARDIOVASCULAR: S1-S2, tachycardic. Slight murmur noted. ABDOMEN: Normoactive bowel sounds. Soft, nontender, no guarding, no rebound tenderness, and no masses palpated. EXTREMITIES: Normal strength and range of motion, no pitting or edema. No cyanosis. NEUROLOGICAL: Moves all extremities upon command. Strength 5/5 in all extremit ies. PSYCH: Normal mood, normal affect. SKIN: Clammy, multiple scabs noted to body. Course - Re-evaluation Re-evalutation: 04/07/20 10:10 Due to the concern for possible endocarditis his IV drug use and his tachycardia. I contacted Dr. Barker to review his echocardiogram. He is in agreement to follow this. I am working with Dr. Arechiga in regards to this patient's case. 04/07/20 14:33 Chemistries are unremarkable. Hematology shows a hemoglobin 12.4. ESR is elevated at 48. Neutrophils are elevated. Influenza is negative. 04/07/20 14:[address] Rodgers, patient will be admitted to the telemetry floor. - Vital Signs Vital signs: Temp Pulse Resp BP Pulse Ox 100.9 F H 114 H 19 114/84 96 04/07/20 11:04 04/07/20 08:38 04/07/20 10:01 04/07/20 10:01 04/07/20 10:36 - Laboratory Result Diagrams: 04/07/20 10:13 04/07/20 10:13 Laboratory results interpreted by me: 04/07/20 04/07/20 10:13 10:13 RBC 4.23 L Hgb 12.4 L Hct 35.9 L RDW 14.8 H Plt Count 122 L Lymph % (Auto) 12.9 L Seg Neutrophils % 82.5 H ESR 48 H Magnesium 1.3 L Total Bilirubin 1.9 H Direct Bilirubin 1.1 H Alkaline Phosphatase 532 H Creatine Kinase 48 L Total Protein 8.8 H Discharge - Discharge Clinical Impression: Sepsis Qualifiers: Sepsis type: sepsis due to unspecified organism Sepsis acute organ dysfunction status: unspecified Qualified Code(s): A41.9 - Sepsis, unspecified organism Chest pain Qualifiers: Chest pain type: unspecified Qualified Code(s): R07.9 - Chest pain, unspecified Condition: Stable Disposition: ADMITTED INPATIENT Admitting Provider: Ana Maria (Hospitalist) Unit Admitted: Telemetry Referrals: [facility] [Primary Care Provider] - Follow up as needed
[2020-04-07] MEDS ORDERED: VANCOMYCIN HCL INJ 1000 MG VIAL IV ONE (10:36)
[2020-04-07] MEDS ORDERED: PIPERACILLIN/TAZOBACTAM 4.5 GM VIAL IV ONE (10:36)
[2020-04-07 10:43] LABS: ABSOLUTE LYMPHOCYTES (AUTO) 0.9 10^3/uL (0.5-4.7); ABSOLUTE MONOCYTES (AUTO) 0.3 10^3/uL (0.1-1.4); BASOPHILS % (AUTO) 0.5 % (0-2); EOSINOPHILS % (AUTO) 0.6 % (0-6); HEMATOCRIT 35.9 % (37.9-51.0); HEMOGLOBIN 12.4 g/dL (13.5-17.0); LYMPHOCYTES % (AUTO) 12.9 % (13-45); MEAN CORPUSCULAR HEMOGLOBIN 29.2 pg (27.0-33.4); MEAN CORPUSCULAR HGB CONC 34.4 g/dL (32.0-36.0); MEAN CORPUSCULAR VOLUME 85 fl (80-97); MONOCYTES % (AUTO) 3.5 % (3-13); PLATELET COUNT 122 10^3/uL (150-450); RED BLOOD COUNT 4.23 10^6/uL (4.35-5.55); RED CELL DISTRIBUTION WIDTH 14.8 % (11.5-14.0); SEGMENTED NEUTROPHILS % (AUTO) 82.5 % (42-78); TOTAL CELLS COUNTED % (AUTO) 100 %; WHITE BLOOD COUNT 7.3 10^3/uL (4.0-10.5)
[2020-04-07 10:59] LABS: INTERNATIONAL RATION (INR) 1.12; PROTHROMBIN TIME 14.6 SEC (11.4-15.4)
[2020-04-07 11:10] LABS: ALBUMIN 4.5 g/dL (3.5-5.0); ALCOHOL 53 mg/dL (NONE DETECTED); ALKALINE PHOSPHATASE 532 U/L (38-126); ANION GAP 14 (5-19); ASPARTATE AMINO TRANSFERASE 45 U/L (17-59); BILIRUBIN,DIRECT 1.1 mg/dL (0.0-0.4); BILIRUBIN,TOTAL 1.9 mg/dL (0.2-1.3); BLOOD UREA NITROGEN 7 mg/dL (7-20); CALCIUM 10.1 mg/dL (8.4-10.2); CARBON DIOXIDE 25 mmol/L (22-30); CHLORIDE 99 mmol/L (98-107); CREATINE KINASE 48 U/L (55-170); GLUCOSE 83 mg/dL (75-110); POTASSIUM 4.3 mmol/L (3.6-5.0); TOTAL PROTEIN 8.8 g/dL (6.3-8.2)
[2020-04-07 11:12] LABS: VENOUS BLOOD BASE EXCESS 1.2 mmol/L; VENOUS BLOOD HCO3 26.3 mmol/L (20-32); VENOUS BLOOD PCO2 43.3 mmHg (35-63); VENOUS BLOOD PH 7.4 (7.30-7.42)
--- NOTE | 2020-04-07 11:21 | RADIOLOGY REPORT (SQ) ---
EXAM DESCRIPTION: CT HEAD WITHOUT IMAGES COMPLETED DATE/TIME: 04/07/2020 11:10 am REASON FOR STUDY: AMS COMPARISON: 10/23/2017 TECHNIQUE: Axial images acquired through the brain without intravenous contrast. Images reviewed wi th bone, brain and subdural windows. Additional sagittal and coronal reconstructions were generated. Images stored on PACS. All CT scanners at this facility use dose modulation, iterative reconstruction, and/or weight based d osing when appropriate to reduce radiation dose to as low as reasonably achievable (ALARA). [facility]: Dose Right [facility]: CareDose [facility]: Dose Right [facility]: Teradose 4D [facility]: [employer] RADIATION DOSE: CT Rad equipment meets quality standard of care and radiation dose reduction techniq ues were employed. CTDIvol: 49.9 mGy. DLP: 1005 mGy-cm. mGy. LIMITATIONS: None. FINDINGS: VENTRICLES: Normal size and contour. CEREBRUM: No masses. No hemorrhage. No midline shift. No evidence for acute infarction. Normal gra y/white matter differentiation. No areas of low density in the white matter. CEREBELLUM: No masses. No hemorrhage. No alteration of density. No evidence for acute infarction. EXTRAAXIAL SPACES: No fluid collections. No masses. ORBITS AND GLOBE: No intra- or extraconal masses. Normal contour of globe without masses. CALVARIUM: No fracture. PARANASAL SINUSES: No fluid or mucosal thickening. SOFT TISSUES: No mass or hematoma. OTHER: No other significant finding. IMPRESSION: NORMAL BRAIN CT WITHOUT CONTRAST. EVIDENCE OF ACUTE STROKE: NO. COMMENT: Quality ID # [id number]: Final reports with documentation of one or more dose reduction techniques (e.g., Automated exposure control, adjustment of the mA and/or kV according to patient size, use of iterative reconstruction technique) TECHNICAL DOCUMENTATION: JOB ID: [id number] 2010 [employer]- All Rights Reserved Reading location - IP/workstation name: [email or web address]
[2020-04-07 11:33] LABS: ERYTHROCYTE SEDIMENTATION RATE 48 mm/hr (0-15)
[2020-04-07] MEDS ORDERED: NORMAL SALINE 1000 ML 1,000 ML with POTASSIUM CHLORIDE 20 MEQ, MAGNESIUM SULFATE 8 MEQ,... IV ONE ×5 (12:00)
--- NOTE | 2020-04-07 12:57 | EKG REPORT ---
SEVERITY:- OTHERWISE NORMAL ECG - SINUS TACHYCARDIA : Confirmed by: Rory Valadez MD 07-Apr-2020 12:57:21
--- NOTE | 2020-04-07 13:34 | RADIOLOGY REPORT (SQ) ---
EXAM DESCRIPTION: CHEST SINGLE VIEW IMAGES COMPLETED DATE/TIME: 04/07/2020 1:25 pm REASON FOR STUDY: AMS COMPARISON: 12/20/2019 EXAM PARAMETERS: NUMBER OF VIEWS: One view. TECHNIQUE: Single frontal radiographic view of the chest acquired. RADIATION DOSE: NA LIMITATIONS: None. FINDINGS: LUNGS AND PLEURA: Bandlike atelectasis in the right base. No pneumothorax or consolidatio n. No effusion. MEDIASTINUM AND HILAR STRUCTURES: No masses. Contour normal. HEART AND VASCULAR STRUCTURES: Heart normal in size. Normal vasculature. BONES: No acute findings. HARDWARE: None in the chest. OTHER: No other significant finding. IMPRESSION: Bandlike atelectasis in the right base. No other significant findings. TECHNICAL DOCUMENTATION: JOB ID: [id number] 2010 [employer]- All Rights Reserved Reading location - IP/workstation name: [email or web address]
[2020-04-07 13:59] LABS: A TYPE INFLUENZA AG NEGATIVE (NEGATIVE); B INFLUENZA AG NEGATIVE (NEGATIVE)
[2020-04-07] MEDS ORDERED: KETOROLAC TROMETHAMINE INJ/PF 30 MG/1 ML SDV IV ONE (14:55)
[2020-04-07 15:02] LABS: URINE BARBITURATES SCREEN NEGATIVE; URINE BENZODIAZEPINES SCREEN NEGATIVE; URINE COCAINE SCREEN NEGATIVE; URINE MARIJUANA (THC) SCREEN NEGATIVE; URINE METHADONE SCREEN NEGATIVE; URINE PHENCYCLIDINE SCREEN NEGATIVE
[2020-04-07 15:06] LABS: URINE AMPHETAMINES SCREEN UNCONFIRMED POSITIVE
[2020-04-07] MEDS ORDERED: MORPHINE SULFATE 10 MG/ML INJ IV PRN (15:06)
--- NOTE | 2020-04-07 15:30 | ER Document Report ---
Doctor's Note Notes: 04/07/20 15:25 This is a 34-year-old male I was asked to evaluate along with midlevel provider. The patient is well-known to this emergency department and to the hospital admission service here with longstanding history of polysubstance abuse and multiple related complications. He has alcoholic cirrhosis and has previously been treated for alcohol withdrawal and hepatic encephalopathy. He has a longstanding history of IV drug abuse. He comes in today reporting that he had accidentally overdosed himself last week. He states that his mother did brief CPR on him at home and he refused allow her to call an ambulance to transport him to the hospital at that time. He comes in today stating that his chest is very sore and also complains of burning paresthesias of hands and feet. States that he feels "just bad all over". Appetite has been poor. When I try to get a more specific history from him he is extremely unfocused and it is hard to maintain a two-way conversation. The patient is tachycardic here with rate about 118. He is tremulous and has a low-grade temperature. He has widespread needle tracks. He also has multiple skin lesions over the abdominal wall from skin popping. Dentition is extremely poor. His speech is mildly slurred. He is oriented to place and person but not to day or time. He denies active auditory or visual hallucinations but appears mildly paranoid. His chest is clear his cardiac rhythm is regular and tachycardic with a grade 2 systolic murmur. He appears extremely unkempt. His pupils are equal mid position and sluggish. His neck is supple. His abdomen is soft nontender without masses or organomegaly. Twelve-lead EKG showed no acute changes. Chest x-ray normal per radiologist. Head CT normal per radiologist. Serum ammonia is normal. Bilirubin and transaminases mildly elevated. Blood alcohol is 53. Urine is positive for opiates and amphetamines. Magnesium is 1.2. Thrombocytopenic with a platelet count of 112,000. White count and hemoglobin are normal. Prothrombin time is normal. I expanse primarily having alcohol withdrawal symptoms at this time. He probably has a peripheral polyneuropathy related to his alcoholism. He clearly has ongoing issues with polysubstance abuse including opiates and amphetamines. Recommend continued treatment with benzodiazepines, IV banana bag and admission to inpatient hospitalist service. 04/07/20 15:31
[2020-04-07] MEDS ORDERED: TEMAZEPAM 7.5 MG CAPSULE PO PRN (15:34)
[2020-04-07] MEDS ORDERED: PROMETHAZINE HCL INJ 25 MG/1 ML VIAL IV PRN (15:34)
[2020-04-07] MEDS ORDERED: ONDANSETRON HCL INJ/PF 4 MG/2 ML SDV IV PRN (15:34)
[2020-04-07] MEDS ORDERED: NORMAL SALINE 1000 ML 1,000 ML IV PRN (15:34)
[2020-04-07] MEDS ORDERED: IPRATROPIUM/ALBUTEROL 0.5-2.5 MG/3 ML AMPUL NEB PRN (15:34)
[2020-04-07] MEDS ORDERED: ACETAMINOPHEN 325 MG TABLET PO PRN (15:34)
[2020-04-07] MEDS ORDERED: METOPROLOL TARTRATE PF/INJ 5 MG/5 ML SDV IV PRN (15:40)
[2020-04-07] MEDS ORDERED: HYDRALAZINE HCL INJ/PF 20 MG/1 ML SDV IV PRN (15:40)
[2020-04-07] MEDS ORDERED: VANCOMYCIN HCL 0 MG in DEXTROSE 5%-WATER 250 ML IV NR (15:45)
[2020-04-07] MEDS: MORPHINE SULFATE 10 MG/ML INJ IV PRN ×2 (16:09→20:50)
[2020-04-07] MEDS ORDERED: CEFTRIAXONE 1 GM/D5W RTU 1 GM/50 ML RTUPB IV SCH (17:00)
[2020-04-07] MEDS: OXYCODONE-ACETAMINOPHEN 5-325 MG TABLET PO PRN ×2 (17:19→22:16)
[2020-04-07] MEDS: LORAZEPAM INJ 2 MG/1 ML VIAL IV PRN ×3 (17:20→23:36)
[2020-04-07] MEDS ORDERED: DOCUSATE SODIUM 100 MG CAPSULE PO SCH (18:00)
[2020-04-07] MEDS ORDERED: VANCOMYCIN HCL 1,250 MG in DEXTROSE 5%-WATER 250 ML IV SCH (18:00)
[2020-04-07] MEDS ORDERED: NORMAL SALINE 1000 ML 1,000 ML with POTASSIUM CHLORIDE 20 MEQ, MAGNESIUM SULFATE 8 MEQ,... IV SCH ×5 (18:00)
--- NOTE | 2020-04-07 18:23 | PDOC H&P ---
History of Present Illness Admission Date/PCP: 04/07/20 14:48 [facility] History of Present Illness: RAMBO MARTINEZ is a 34 year old male past medical history of EtOH abuse, heroin abuse, MSSA bacteremia, hepatitis C, multidrug abuse, bipolar depression, pancreatic insufficiency, recurrent hospitalization and leaving AMA, patient presenting to ED complaining of chest pain and hurting all over his body, stating that about a week ago he had overdosed on heroin, and was given CPR by his mother. On my encounter patient is very tremulous and stating that he is hurting all over especially in his chest, he is alert and oriented, denies any visual or auditory hallucinations, cooperative. He has very poor hygiene with extensive nasal tracks in his body. He admits to me that he is still abusing heroin and EtOH. In ED EKG was negative, troponins were negative, was noted to be tachycardic, febrile, suspicion was raised for possible endocarditis, patient was started on broad-spectrum empiric IV antibiotics, and echo was ordered. Past Medical History Cardiac Medical History: Reports: Hyperlipidema, Hypertension Denies: Atrial Fibrillation, Congestive Heart Failure, Coronary Artery Disease, DVT, Myocardial Infarction, Peripheral Vascular Disease, Pulmonary Embolism Pulmonary Medical History: Reports: Bronchitis Denies: Asthma, Chronic Obstructive Pulmonary Disease (COPD) Neurological Medical History: Denies: Migraine, Seizures Endocrine Medical History: Denies: Diabetes Mellitus Type 1, Diabetes Mellitus Type 2, Hyperthyroidism, Hypothyroidism GI Medical History: Reports: Cirrhosis, Hepatitis - Hepatitis-C Denies: Crohn's Disease, Gastroesophageal Reflux Disease, Ulcerative Colitis Musculoskeltal Medical History: Reports: Arthritis, Gout Skin Medical History: Denies: Eczema, Psoriasis Psychiatric Medical History: Reports: Bipolar Disorder, Depression, Post Traumatic Stress Disorder Hematology: Denies: Anemia, Bleeding Tendencies Past Surgical History Past Surgical History: Reports: Orthopedic Surgery - R hand Social History Smoking Status: Current Every Day Smoker Electronic Cigarette use?: No Frequency of Alcohol Use: Heavy - 1/2 gallon of whiskey daily Hx Recreational Drug Use: Yes Drugs: Cocaine, Heroin, Marijuana Hx Prescription Drug Abuse: Yes - Opioids and benzodiazepines Family History Family History: CAD, CVA, Hyperlipidemia, Hypertension, Malignancy, Thyroid Disfunction Parental Family History Reviewed: Yes Children Family History Reviewed: Yes Sibling(s) Family History Reviewed.: Yes Medication/Allergy Home Medications: No Home Medications 04/07/20 Allergies/Adverse Reactions: carisoprodol [From Soma] Allergy (Verified 09/29/19 14:26) Sulfa (Sulfonamide Antibiotics) Allergy (Verified 09/29/19 14:26) Review of Systems Review of Systems: as per hpi Physical Exam Vital Signs: Temp Pulse Resp BP Pulse Ox 98.4 F 114 H 19 128/90 H 92 04/07/20 15:01 04/07/20 08:38 04/07/20 15:01 04/07/20 15:01 04/07/20 15:01 Intake & Output 04/06/20 04/07/20 04/08/20 06:59 06:59 06:59 Weight 75.7 kg General appearance: PRESENT: cooperative, disheveled, severe distress, other - Tremulous, crying in pain, disheveled Head exam: PRESENT: atraumatic, normocephalic Neck exam: ABSENT: carotid bruit, JVD, lymphadenopathy, thyromegaly Respiratory exam: PRESENT: clear to auscultation jason, tachypnea. ABSENT: rales, rhonchi, wheezes Cardiovascular exam: PRESENT: RRR, other - Anterior chest exquisitely painful to palpation.. ABSENT: diastolic murmur, rubs, systolic murmur Pulses: PRESENT: normal dorsalis pedis pul GI/Abdominal exam: PRESENT: normal bowel sounds, soft. ABSENT: distended, guarding, mass, organolmegaly, rebound, tenderness Neurological exam: PRESENT: alert, awake, oriented to person, oriented to place, oriented to time, oriented to situation, CN II-XII grossly intact. ABSENT: motor sensory deficit Psychiatric exam: PRESENT: anxious Focused psych exam: PRESENT: restlessness Skin exam: PRESENT: other - Extensive track terrazas. Results Laboratory Results: 04/07/20 10:13 04/07/20 10:13 04/07/20 04/07/20 04/07/20 10:13 10:13 10:13 WBC 7.3 RBC 4.23 L Hgb 12.4 L Hct 35.9 L MCV 85 MCH 29.2 MCHC 34.4 RDW 14.8 H Plt Count 122 L Seg Neutrophils % 82.5 H VBG pH VBG pCO2 VBG HCO3 VBG Base Excess Sodium 137.7 Potassium 4.3 Chloride 99 Carbon Dioxide 25 Anion Gap 14 BUN 7 Creatinine 0.68 Est GFR ( Amer) > 60 Glucose 83 Lactic Acid 1.5 Calcium 10.1 Magnesium 1.3 L Total Bilirubin 1.9 H AST 45 Alkaline Phosphatase 532 H Ammonia Total Protein 8.8 H Albumin 4.5 Lipase 33.3 04/07/20 04/07/20 04/07/20 11:00 12:59 16:54 WBC RBC Hgb Hct MCV MCH MCHC RDW Plt Count Seg Neutrophils % VBG pH 7.40 VBG pCO2 43.3 VBG HCO3 26.3 VBG Base Excess 1.2 Sodium Potassium Chloride Carbon Dioxide Anion Gap BUN Creatinine Est GFR ( Amer) Glucose Lactic Acid 0.7 Calcium Magnesium Total Bilirubin AST Alkaline Phosphatase Ammonia 28.2 Total Protein Albumin Lipase 04/07/20 04/07/20 10:13 10:13 Creatine Kinase 48 L Troponin I < 0.012 Impressions: Head CT 04/07/20 10:39 IMPRESSION: NORMAL BRAIN CT WITHOUT CONTRAST. EVIDENCE OF ACUTE STROKE: NO. Chest X-Ray 04/07/20 11:37 IMPRESSION: Bandlike atelectasis in the right base. No other significant findings. Assessment and Plan - Diagnosis (1) Fever Is this a current diagnosis for this admission?: Yes Plan: Patient noted to be febrile and tachycardic. PO2 WNL on RA. Chest x-ray negative for any acute abnormalities. Given history of multidrug abuse, heroin abuse and history of MSSA bacteremia endocarditis is a possibility. We will start on empiric broad-spectrum IV antibiotics and obtain blood culture and 2D echo. If no suspicion for bacteremia or endocarditis antibiotics could be DC'd. (2) IV drug abuse Is this a current diagnosis for this admission?: Yes Plan: History of multidrug abuse including heroin. Admit summary, supportive measures, monitor for withdrawal. Discharge planning consulted for providing resources for rehab. (3) Hepatitis C Qualifiers: Is this a current diagnosis for this admission?: Yes Plan: History of hepatitis C. Elevated T bili. Monitor LFTs. Outpatient PCP and gastroenterology follow-up. (4) Alcohol abuse Is this a current diagnosis for this admission?: Yes Plan: History of EtOH abuse. Last alcohol intake yesterday evening. DT precautions. (5) Chest pain Qualifiers: Chest pain type: unspecified Qualified Code(s): R07.9 - Chest pain, unspecified Is this a current diagnosis for this admission?: Yes Plan: Musculoskeletal. Anterior chest exquisitely painful to palpation. EKG negative for any acute changes. Troponins negative. As per patient he overdosed a week ago and was given CPR by his mother. Chest x-ray negative for any fracture. If no improvement CT chest could be considered to rule out any fractures. Supportive measures, as needed IV analgesics, topical lidocaine. Monitor for respiratory depression. - Time Time Spent with patient: 35 or more minutes Smoking Cessation Education: 3 to 10 minutes Medications reviewed and adjusted accordingly: Yes Anticipated Discharge Disposition: Home with Home Health Anticipated Discharge Timeframe: within 72 hours
--- NOTE | 2020-04-07 19:06 | XCELERA REPORT ---
[address] [address] Transthoracic Echocardiogram Report Name: RAMBO MARTINEZ Age: 34 yrs Gender: Male : 1985 Patient Status: Emergency Patient Location: ER Study Date: 04/07/2020 11:38 AM History: IVDU Infective Endocarditis Procedure: A complete two-dimensional transthoracic echocardiogram was performed (2D, M-mode, spectral and color flow Doppler). The study was technically difficult with many images being suboptimal in quality. Reason For Study: IVDA; eval failure/endocarditis Previous Evaluation: A previous study was performed on 09/24/2019 LVEF was nornal. Ordering Physician: AMOL NAZARIO Performed By: Eveline Gonzales Interpretation Summary No vegetation is seen on this exam. CHEMO is more sensitive. Left ventricular systolic function is normal. The Ejection Fraction estimate is 55-60% The right ventricle is normal in size and function. There is no mitral regurgitation noted. There is no aortic valve stenosis There is a trace amount of tricuspid regurgitation Doppler findings do not suggest pulmonary hypertension. There is no pericardial effusion. No vegetation is seen on this exam. CHEMO is more sensitive. MMode/2D Measurements & Calculations RVDd: 3.1 cm LVIDd: 4.3 cm FS: 32.2 % Ao root diam: 2.7 cm IVSd: 0.86 cm LVIDs: 2.9 cm EDV(Teich): 81.9 ml Ao root area: 5.9 cm2 LVPWd: 0.88 cm ESV(Teich): 32.1 ml EF(Teich): 60.8 % LA dimension: 2.9 cm Doppler Measurements & Calculations MV E max leonila: MV P1/2t max leonila: Ao V2 max: LV V1 max P.7 cm/sec 83.6 cm/sec 135.0 cm/sec 6.4 mmHg MV A max leonila: MV P1/2t: 75.0 msec Ao max P.3 mmHgLV V1 max: 94.4 cm/sec 126.0 cm/sec MV E/A: 0.88 MVA(P1/2t): 2.9 cm2 MV dec slope: 326.2 cm/sec2 MV dec time: 0.25 sec PA V2 max: TR max leonila: MV P1/2t-pr_phl: 134.4 cm/sec 196.8 cm/sec 75.0 msec PA max P.2 mmHgTR max P.5 mmHg Left Ventricle The left ventricle is normal in size. There is normal left ventricular wall thickness. Left ventricular systolic function is normal. The Ejection Fraction estimate is 55-60%. Doppler measurements suggest normal left ventricular diastolic function. No regional wall motion abnormalities noted. Right Ventricle The right ventricle is normal in size and function. Atria The right atrium is normal. The left atrial size is normal. The interatrial septum is intact with no evidence for an atrial septal defect. There is no Doppler evidence for an interatrial shunt. Mitral Valve The mitral valve is grossly normal. There is no vegetation seen on the mitral valve. There is no mitral valve stenosis. There is no mitral regurgitation noted. Aortic Valve The aortic valve is trileaflet. The aortic valve is normal in structure and function. The aortic valve opens well. There is no aortic valvular vegetation. There is no aortic valve stenosis. No aortic regurgitation is present. Tricuspid Valve The tricuspid valve is normal in structure and function. There is no tricuspid stenosis. There is a trace amount of tricuspid regurgitation. Doppler findings do not suggest pulmonary hypertension. Pulmonic Valve The pulmonic valve is normal in structure and function. There is no vegetation on the pulmonic valve. There is no pulmonic valvular stenosis. There is no pulmonic valvular regurgitation. Great Vessels The aortic root is normal size. The inferior vena cava appeared small and collapsed with respiration (RAP 0-5 mmHg). Effusions There is no pericardial effusion. : AMOL NAZARIO Anil
[2020-04-07] MEDS ORDERED: FAMOTIDINE 20 MG TABLET PO SCH (22:00)
[2020-04-08 01:26] VITALS: BP 113/76
--- NOTE | 2020-04-08 03:21 | Left Against Medical Advice ---
Against Medical Advice Admission Date/Time: 04/07/20 14:48 Primary Care Provider: [facility] Date of Patient Emigration: 04/08/20 - Diagnosis: (1) Alcohol abuse Is this a current diagnosis for this admission?: Yes (2) Chest pain Is this a current diagnosis for this admission?: Yes (3) Fever Is this a current diagnosis for this admission?: Yes (4) Hepatitis C Is this a current diagnosis for this admission?: Yes - Summary: Summary: Please see Admission and Progress Notes as well. RAMBO MARTINEZ is a 34 M, who LEFT AGAINST MEDICAL ADVICE. The Patient was admitted on 04/07/20 14:48.
[2020-04-08] MEDS ORDERED: THIAMINE HCL 100 MG TABLET PO SCH (10:00)
[2020-04-08] MEDS ORDERED: FOLIC ACID 1 MG TABLET PO SCH (10:00)
[2020-04-08] MEDS ORDERED: ENOXAPARIN SODIUM INJ 40 MG/0.4 ML DISP.SYRIN SUBCUT SCH (10:00)
[2020-04-08] MEDS ORDERED: NORMAL SALINE 1000 ML 1,000 ML with POTASSIUM CHLORIDE 20 MEQ, MAGNESIUM SULFATE 8 MEQ,... IV SCH ×5 (18:00)
== END 2020-04-08 02:03 | disposition left against medical advice (07) ==
LOC: ER 08:32 → INTOOBSV 14:48 → EH 14:48 → 4N 19:44
PROVIDERS: ADMIT Internal Medicine; ATTEND Internal Medicine
DX: F10.10 Alcohol abuse, uncomplicated (principal); R07.89 Other chest pain; R50.9 Fever, unspecified; B19.20 Unspecified viral hepatitis C without hepatic coma; R25.1 Tremor, unspecified; R00.0 Tachycardia, unspecified; F11.10 Opioid abuse, uncomplicated; K70.30 Alcoholic cirrhosis of liver without ascites; R45.1 Restlessness and agitation; M19.90 Unspecified osteoarthritis, unspecified site; L98.8 Other specified disorders of the skin and subcutaneous tissue; R01.1 Cardiac murmur, unspecified; F15.10 Other stimulant abuse, uncomplicated; D69.6 Thrombocytopenia, unspecified; F17.200 Nicotine dependence, unspecified, uncomplicated; Z82.49 Family history of ischemic heart disease and other diseases of the circulatory system; Z86.19 Personal history of other infectious and parasitic diseases; Z82.3 Family history of stroke; Y90.2 Blood alcohol level of 40-59 mg/100 ml; Z86.39 Personal history of other endocrine, nutritional and metabolic disease
CPT/HCPCS: 93005; 99285; 96375; 96365; 96366; 96368; 36415; 87040; 80307 ×2; 82140; 82550; 83605; 83690; 83735; 85025; 85652; 85610; 80053; 84484; 82803; 87804; 93306; 71045; 70450; 93010; G0378 ×3; J3475; J1885; J2270; J2060; J3480; J3411; J2405; J7060; J7030; J3370; J0696; J3490; J2543

== ENCOUNTER 2020-05-31 09:46 | Emergency (ER) | payer SELFPAY ==
[2020-05-31] MEDS ORDERED: CLINDAMYCIN 600 MG/D5W RTU 600 MG/50 ML RTUPB IV ONE (11:16)
[2020-05-31 11:31] LABS: ABSOLUTE LYMPHOCYTES (AUTO) 1.2 10^3/uL (0.5-4.7); ABSOLUTE MONOCYTES (AUTO) 0.4 10^3/uL (0.1-1.4); ABSOLUTE NEUT (AUTO) 5.6 10^3/uL (1.7-8.2); BASOPHILS % (AUTO) 0.3 % (0-2); EOSINOPHILS % (AUTO) 0.6 % (0-6); HEMATOCRIT 34.3 % (37.9-51.0); HEMOGLOBIN 11.6 g/dL (13.5-17.0); LYMPHOCYTES % (AUTO) 16.7 % (13-45); MEAN CORPUSCULAR HEMOGLOBIN 29.1 pg (27.0-33.4); MEAN CORPUSCULAR VOLUME 86 fl (80-97); MONOCYTES % (AUTO) 5.7 % (3-13); PLATELET COUNT 114 10^3/uL (150-450); RED CELL DISTRIBUTION WIDTH 14.4 % (11.5-14.0); SEGMENTED NEUTROPHILS % (AUTO) 76.7 % (42-78); TOTAL CELLS COUNTED % (AUTO) 100 %; WHITE BLOOD COUNT 7.4 10^3/uL (4.0-10.5)
[2020-05-31 11:43] LABS: INTERNATIONAL RATION (INR) 1.19; PROTHROMBIN TIME 15.3 SEC (11.4-15.4)
[2020-05-31 11:46] LABS: ALBUMIN 4.1 g/dL (3.5-5.0); ALCOHOL 18 mg/dL (NONE DETECTED); ALKALINE PHOSPHATASE 431 U/L (38-126); ANION GAP 12 (5-19); ASPARTATE AMINO TRANSFERASE 53 U/L (17-59); BILIRUBIN,DIRECT 1.1 mg/dL (0.0-0.4); BLOOD UREA NITROGEN 14 mg/dL (7-20); CALCIUM 9.2 mg/dL (8.4-10.2); CARBON DIOXIDE 25 mmol/L (22-30); CHLORIDE 99 mmol/L (98-107); CREATINE KINASE 140 U/L (55-170); GLUCOSE 103 mg/dL (75-110); POTASSIUM 3.6 mmol/L (3.6-5.0); TOTAL PROTEIN 8.8 g/dL (6.3-8.2)
--- NOTE | 2020-05-31 12:01 | ER Document Report ---
Entered by ODALIS ENCARNACION SCRIBE 05/31/20 1115 Acting as scribe for:LES METZ MD ED General - General Stated Complaint: COUGH, FEVER Time Seen by Provider: 05/31/20 10:59 Mode of Arrival: Ambulatory Information source: Patient Notes: This 34 year old male patient presents to the emergency department today with complaints of nasal congestion, cough with green mucus, and a left leg wound. Patient reports a cough, congestion, and intermittent fevers that began 2 weeks ago. He states that he had what initially was a small scrape to his left da silva which has progressed in the last 4 days with significant left lower extremity swelling and erythema. He denies any nausea or vomiting. TRAVEL OUTSIDE OF THE [place] IN LAST 30 DAYS: No - Related Data Allergies/Adverse Reactions: carisoprodol [From Soma] Allergy (Verified 09/29/19 14:26) Sulfa (Sulfonamide Antibiotics) Allergy (Verified 09/29/19 14:26) Past Medical History - General Information source: Patient - Social History Smoking Status: Current Every Day Smoker Cigarette use (# per day): Yes Frequency of alcohol use: Heavy Drug Abuse: None Family History: CAD, CVA, Hyperlipidemia, Hypertension, Malignancy, Thyroid Disfunction - Past Medical History Cardiac Medical History: Reports: Hx Hypercholesterolemia, Hx Hypertension Pulmonary Medical History: Reports: Hx Bronchitis Neurological Medical History: Reports: Hx Cerebrovascular Accident - States he has had a TIA GI Medical History: Reports: Hx Cirrhosis, Hx Gastritis, Hx Hepatitis - Hepatitis-C, Hx Ulcer, Hx Endoscopy Musculoskeletal Medical History: Reports Hx Arthritis, Reports Hx Gout, Reports Hx Musculoskeletal Deformity, Reports Hx Musculoskeletal Trauma Psychiatric Medical History: Reports: Hx Anxiety, Hx Bipolar Disorder, Hx Depression, Hx Post Traumatic Stress Disorder Traumatic Medical History: Reports: Hx Fractures - Right hand Infectious Medical History: Reports: Hx Hepatitis - Hepatitis-C Past Surgical History: Reports: Hx Orthopedic Surgery - R hand - Immunizations Immunizations up to date: Yes Hx Diphtheria, Pertussis, Tetanus Vaccination: Yes Review of Systems - Review of Systems Constitutional: See HPI, Fever EENT: See HPI, Nose congestion Cardiovascular: No symptoms reported Respiratory: See HPI, Cough Gastrointestinal: denies: Nausea, Vomiting Genitourinary: No symptoms reported Male Genitourinary: No symptoms reported Musculoskeletal: No symptoms reported Skin: No symptoms reported Hematologic/Lymphatic: No symptoms reported Neurological/Psychological: No symptoms reported -: Yes All other systems reviewed and negative Physical Exam - Vital signs Vitals: Temp Pulse Resp BP Pulse Ox 97.7 F 101 H 16 111/69 100 05/31/20 09:53 05/31/20 09:53 05/31/20 09:53 05/31/20 09:53 05/31/20 09:53 - Notes Notes: Physical Exam: General: Alert, appears well. HEENT: Normocephalic. Atraumatic. PERRL. Extraocular movements intact. Oropharynx clear. Nasal congestion. Hoarse voice. Neck: Supple. Non-tender. Respiratory: No respiratory distress. Dry, non-productive cough. Cardiovascular: Regular rate and rhythm. Abdominal: Normal Inspection. Non-tender. No distension. Normal Bowel Sounds. Back: No gross abnormalities. Extremities: Moves all four extremities. Upper extremities: Normal inspection. Normal ROM. Lower extremities: Normal inspection. No edema. Normal ROM. Neurological: Normal cognition. AAOx4. Normal speech. Psychological: Normal affect. Normal Mood. Skin: Sores to right side of nose, bilateral forearms, and left leg. Large sore is to the left proximal anterior tibia with surrounding erythema, warmth, and tenderness to palpation with associated swelling. Course - Re-evaluation Re-evalutation: 05/31/20 12:20 The patient was evaluated during the global COVID-19 pandemic and that diagnosis was suspected/considered upon their initial presentation. Their evaluation, treatment and testing was consistent with current guidelines for patients who present with complaints or symptoms that may be related to COVID-19. - Vital Signs Vital signs: Temp Pulse Resp BP Pulse Ox 97.7 F 101 H 16 111/69 100 05/31/20 09:53 05/31/20 09:53 05/31/20 09:53 05/31/20 09:53 05/31/20 09:53 - Laboratory Results Result Diagrams: 05/31/20 10:30 05/31/20 10:30 Laboratory Results Interpreted: 05/31/20 05/31/20 10:30 10:30 RBC 4.00 L Hgb 11.6 L Hct 34.3 L RDW 14.4 H Plt Count 114 L Sodium 136.1 L Total Bilirubin 2.0 H Direct Bilirubin 1.1 H Alkaline Phosphatase 431 H Total Protein 8.8 H Critical Laboratory Results Reviewed: No Critical Results - Radiology Results Critical Radiology Results Reviewed: No Critical Results Discharge - Discharge Clinical Impression: Viral upper respiratory tract infection, Encounter for laboratory testing for COVID-19 virus Cellulitis Qualifiers: Site of cellulitis: extremity Site of cellulitis of extremity: lower extremity Laterality: left Qualified Code(s): L03.116 - Cellulitis of left lower limb Condition: Stable Disposition: HOME, SELF-CARE Instructions: COVID-19 Guidance for Persons Under Investigation Additional Instructions: Upper Respiratory Illness You have a viral infection of the respiratory passages -- a "cold." This common infection causes nasal congestion, drainage, and often sore throat and cough. It is caused by a virus and is highly contagious. The disease usually lasts a week or more, though the worst symptoms are usually over in 3 or 4 days. There is no "cure" for the viral infection -- it must run its course. If there is a complication, such as bacterial infection in the nose, sinuses, middle ear, or bronchial tubes, antibiotics may be required, but antibiotics won't affect the virus. If you smoke, you should STOP!! Drink plenty of fluids. A humidifier may help. An expectorant medication or decongestant may make you more comfortable. Use acetaminophen or ibuprofen for fever or aches. See the doctor if fever persists over two or three days, if there is any significant worsening of your symptoms, or if you simply fail to improve as expected. Cellulitis You have an infection of your skin and underlying soft tissues called cellulitis. This is due to bacteria, which can enter through any break in the skin, or even through an irritated hair follicle. Untreated, cellulitis will usually worsen. Antibiotics are required. Usually, warm packs or warm soaks, and elevation of the infected area are recommended. You should start getting better within 24 to 36 hours. Most infections respond quickly to the right medication. Follow-up care is important, however, to check for abscess (boil) formation, unsuspected foreign body, or resistant infection. If you develop fever, chills, or if the area of infection is becoming rapidly more swollen or painful, call the doctor at once. Take the clindamycin as prescribed for the cellulitis in your leg and the infections developing on your arms in your nose. This is most likely methicillin-resistant staph, also known as MRSA. Drink plenty of fluids and get plenty of rest. Elevate your leg above your heart all the time and limit walking in order to get the swelling down and allow it to heal sooner. Take [id number] cough and cold medications for your upper respiratory tract infection symptoms. Follow-up with a local medical doctor if not improving. Self isolate until you get results of your Covid test. RETURN TO THE EMERGENCY ROOM IF ANY NEW OR WORSENING SYMPTOMS. Prescriptions: Clindamycin HCl 300 mg PO QID #30 capsule I personally performed the services described in the documentation, reviewed and edited the documentation which was dictated to the scribe in my presence, and it accurately records my words and actions.
[2020-05-31 12:33] VITALS: BP 118/70
[2020-05-31] MEDS ORDERED: ACETAMINOPHEN 325 MG TABLET PO ONE (12:48)
[2020-05-31] MEDS ORDERED: KETOROLAC TROMETHAMINE INJ/PF 30 MG/1 ML SDV IV ONE (12:48)
== END 2020-05-31 13:41 | disposition home or self-care (01) ==
LOC: ER 09:46
DX: U07.1 COVID-19 (principal); J06.9 Acute upper respiratory infection, unspecified; L03.116 Cellulitis of left lower limb; L98.499 Non-pressure chronic ulcer of skin of other sites with unspecified severity; R09.81 Nasal congestion; R05 Cough; R49.0 Dysphonia; F17.210 Nicotine dependence, cigarettes, uncomplicated; I10 Essential (primary) hypertension; Z88.8 Allergy status to other drugs, medicaments and biological substances; Z88.2 Allergy status to sulfonamides
CPT/HCPCS: 99284; 96375; 96365; 36415; 87040; 80307; 82550; 85025; 85610; 87635; 80053; J1885; C9803